=== PATIENT | female | born 1955 | race Caucasian/White ===

== ENCOUNTER → 2018-02-08 14:26 | Outpatient (CLI) | payer OTHER, SELFPAY ==
--- NOTE | 2018-02-08 14:28 | DI.RAD.S_ITS ---
PROCEDURE: XR FOOT LT MIN 3V INDICATIONS: Left foot pain TECHNIQUE: 3 views of the foot were acquired. COMPARISON: [facility], CR, ANKLE 3 VIEWS LEFT, 02/01/2012, 12:41. [facility], , FOOT 3V LEFT, 02/01/2012, 12:41. FINDINGS: Bones: There is a mildly displaced fracture within the midportion of the proximal fifth phalanx. Soft tissues: No tibiotalar joint effusion. Calcaneal spur is present. IMPRESSION: Mildly displaced proximal fifth phalanx fracture. Dictated by: Vesna Graham M.D. on 02/08/2018 at 14:58 Approved by: Vesna Graham M.D. on 02/08/2018 at 14:59
== END ==
PROVIDERS: Family Provider Nurse Practitioner; PCP Nurse Practitioner; Visit Provider Physician Assistant
DX: S92.512A Displaced fracture of proximal phalanx of left lesser toe(s), initial encounter for closed fracture (principal); M79.672 Pain in left foot
CPT/HCPCS: 73630

== ENCOUNTER → 2018-04-23 08:33 | Outpatient (CLI) | payer OTHER, MEDICARE, SELFPAY ==
--- NOTE | 2018-04-23 | DI.MG.S_ITS ---
BILATERAL DIGITAL SCREENING MAMMOGRAM 3D/2D WITH CAD: 04/23/2018 CLINICAL: Routine screening. Family history of breast cancer. Comparison is made to exams dated: 05/12/2014 mammogram, 04/02/2013 mammogram, and 05/29/2012 mammogram - [facility]. There are scattered fibroglandular elements in both breasts. Current study was also evaluated with a Computer Aided Detection (CAD) system. No significant masses, calcifications, or other findings are seen in either breast. There has been no significant interval change. IMPRESSION: NEGATIVE There is no mammographic evidence of malignancy. A 1 year screening mammogram is recommended.(04/24/2019) This exam was interpreted at Station ID: [id number]. NOTE: For mammograms, a report in lay terms will be sent to the patient. Approximately 15% of breast malignancies will not be visualized mammographically. In the management of a palpable breast mass, a negative mammogram must not discourage biopsy of a clinically suspicious lesion. Electronically Signed By: Av higgins/azael:04/23/2018 10:41:23 letter sent: Normal Exam ACR BI-RADS Category 1: Negative [id number]
== END ==
PROVIDERS: PCP Nurse Practitioner; Visit Provider Nurse Practitioner
DX: Z12.31 Encounter for screening mammogram for malignant neoplasm of breast (principal); Z80.3 Family history of malignant neoplasm of breast
CPT/HCPCS: 77063; 77067

== ENCOUNTER → 2018-05-07 08:35 | Outpatient (CLI) | payer OTHER, MEDICARE, SELFPAY | PROVIDERS: PCP Nurse Practitioner | DX: Z23 Encounter for immunization (principal) | CPT/HCPCS: 90471; 90662 ==

== ENCOUNTER → 2018-08-11 08:42 | Outpatient (CLI) | payer OTHER, MEDICARE, SELFPAY ==
[2018-08-11 09:37] LABS: Add Manual Diff / Slide Review NO; Basophils Absolute Auto 0 /uL (0-100); Basophils Percent Auto 0.5 % (0-2); Eosinophils Absolute Auto 100 /uL (0-450); Eosinophils Percent Auto 1.3 % (2-4); Hematocrit 38.7 % (36-46); Hemoglobin 13.1 g/dL (12.0-16.0); Lymphocytes Absolute Auto 2700 /uL (1100-4500); Lymphocytes Percent Auto 42.4 % (25-40); Mean Corpuscular HGB Conc 33.9 % (30-36); Mean Corpuscular Hemoglobin 30.1 PG (26-34); Mean Corpuscular Volume 88.8 fL (80-100); Monocytes Absolute Auto 500 /uL (0-900); Monocytes Percent Auto 7.4 % (3-14); Neutrophils Absolute Auto 3100 /uL (1500-7000); Neutrophils Percent Auto 48.4 % (50-75); Platelet Count 264 X10^3/uL (150-400); Red Blood Cell Count 4.36 X10^6/uL (4.0-5.2); Red Cell Distribution Width 12.8 % (11.6-14.8); White Blood Cell Count 6.5 X10^3/uL (4.5-11.0)
[2018-08-11 09:49] LABS: Alanine Aminotransferase 29 IU/L (9-52); Albumin 4.8 g/dL (3.5-5.0); Albumin Globulin Ratio 1.4 (1.0-2.8); Alkaline Phosphatase 53 U/L (38-126); Aspartate Aminotransferase 24 IU/L (14-36); BUN Creatinine Ratio 25.7 (6-22); Bilirubin Total 0.4 mg/dL (0.2-1.3); Blood Urea Nitrogen 18 mg/dL (7-17); Calcium 9.5 mg/dL (8.4-10.2); Carbon Dioxide 29 mmol/L (22-32); Chloride 98 mmol/L (98-107); Cholesterol 194 mg/dL (140-199); Estimated Glomerular Filt Rate > 60.0 mL/min (>60); Globulin 3.5 g/dL (1.7-4.1); Glucose 133 mg/dL (80-110); HDL Cholesterol 40 mg/dL (40-60); HEMOLYSIS < 15 (0-50); LDL Cholesterol Calculated 86 mg/dL (<100); Potassium 4.2 mmol/L (3.4-5.1); Sodium 140 mmol/L (137-145); Total Protein 8.3 g/dL (6.3-8.2); Triglycerides 340 mg/dL (35-150)
[2018-08-11 09:57] LABS: Hemoglobin A1C% w Est Avg Glu 6.2 % (4.0-6.0)
[2018-08-11 10:19] LABS: TSH w/ Reflex to FT4 0.66 uIU/mL (0.47-4.68)
== END ==
PROVIDERS: PCP Nurse Practitioner; Visit Provider Nurse Practitioner
DX: I10 Essential (primary) hypertension (principal); R73.02 Impaired glucose tolerance (oral)
CPT/HCPCS: 36415; 80053; 80061; 83036; 84443; 85025

== ENCOUNTER → 2018-11-25 13:17 | Outpatient (CLI) | payer OTHER, SELFPAY ==
--- NOTE | 2018-11-25 | DI.RAD.S_ITS ---
PROCEDURE: XR KNEE RT 3V INDICATIONS: Unilateral primary osteoarthritis, unspecified knee TECHNIQUE: 3 views of the knee were acquired. COMPARISON: [facility], , KNEE 1-2 VIEWS RIGHT, 11/06/2017, 13:51. [facility], , KNEE 3V LEFT, 11/06/2017, 13:51. FINDINGS: Bones: No fractures or dislocations. No suspicious bony lesions. Scattered degenerative subchondral sclerosis and spurring. Moderate to severe narrowing of the medial joint space which is unchanged since 11/06/17 Soft tissues: Small joint effusion. No suspicious soft tissue calcifications. IMPRESSION: Unchanged [id number] right knee joint degeneration Dictated by: Adilson Gross M.D. on 11/25/2018 at 16:28 Approved by: Adilson Gross M.D. on 11/25/2018 at 16:30
--- NOTE | 2018-11-25 | DI.RAD.S_ITS ---
PROCEDURE: XR KNEE LT 3V INDICATIONS: Unilateral primary osteoarthritis, unspecified knee TECHNIQUE: 3 views of the knee were acquired. COMPARISON: [facility], VANNA, KNEE 3V LEFT, 11/06/2017, 13:51. [facility], [place], XR KNEE RT 3V, 11/25/2018, 13:35. FINDINGS: Bones: No fractures or dislocations. No suspicious bony lesions. Severe narrowing of the medial joint space. Scattered degenerative subchondral sclerosis and spurring. Possible loose body versus ununited osteophyte projecting adjacent to the lateral aspect of the patella Soft tissues: Small joint effusion as before. No suspicious soft tissue calcifications. IMPRESSION: Severe left knee joint degeneration as above. This has progressed since 11/06/17. Dictated by: Adilson Gross M.D. on 11/25/2018 at 14:10 Approved by: Adilson Gross M.D. on 11/25/2018 at 14:12
== END ==
PROVIDERS: PCP Nurse Practitioner; Visit Provider Nurse Practitioner
DX: M17.0 Bilateral primary osteoarthritis of knee (principal)
CPT/HCPCS: 73562

== ENCOUNTER → 2019-05-11 14:11 | Outpatient (CLI) | payer OTHER, SELFPAY | PROVIDERS: PCP Nurse Practitioner | DX: Z23 Encounter for immunization (principal) | CPT/HCPCS: 90471; 90686 ==

== ENCOUNTER 2019-10-07 17:38 | Emergency (ER) | payer OTHER, SELFPAY ==
[2019-10-07 17:51] VITALS: BP 176/88; PULSE 78; RESP 24; TEMP 36.7; O2SAT 97; BMI 34.3
--- NOTE | 2019-10-07 17:53 | DI.RAD.S_ITS ---
PROCEDURE: XR CHEST 1V INDICATIONS: Chest pain TECHNIQUE: One view of the chest was acquired. COMPARISON: , , CHEST 2 VIEW, 09/29/2017, 15:18. FINDINGS: Surgical changes and devices: None. Lungs and pleura: Lungs are clear. No pleural effusions or pneumothorax. Mediastinum: Mediastinal contours appear normal. Mild cardiomegaly. Bones and chest wall: No suspicious bony lesions. Overlying soft tissues appear unremarkable. IMPRESSION: Mild cardiomegaly. No evidence acute pulmonary process. Dictated by: Taras Tirado M.D. on 10/07/2019 at 18:07 Approved by: Taras Tirado M.D. on 10/07/2019 at 18:07
--- NOTE | 2019-10-07 18:20 | ED.DIZZY ---
HPI - Dizziness General Chief Complaint: Dizziness Stated Complaint: light headed, high blood pressure Time Seen by Provider: 10/07/19 17:53 Source: patient Mode of arrival: Wheelchair Limitations: no limitations History of Present Illness HPI Narrative: The patient is a 64-year-old female who has a history of hypertension on 3 hypertensive agents today stood up from her desk and felt as though she was going to maribel. There is no other way to describe it. The patient states that her staff checked her blood pressure and her blood pressure was very high. The patient denies that she felt as though she was going to faint or pass out but she felt as though she was unsteady and going to crash and fall. She denied any headache and change in vision. She has had no recent travel no fever no cough no nasal congestion no change in vision or loss of vision no history of congestive heart failure. She did not fall or collapse to the floor. The patient states that this is been happening more frequently. She denies a history of myocardial infarction asthma but admits to history of hypertension and diabetes with her 1st elevated hemoglobin A1c. She does not smoke cigarettes but does drink alcohol socially. She denies any headache fever chills sweats cough shortness of breath chest pain palpitations nausea vomiting or diarrhea. Related Data Home Medications Medication Instructions Recorded Confirmed atenolol 50 mg PO HS #0 05/23/10 09/07/19 amlodipine 5 mg tablet 5 mg PO DAILY 04/09/19 09/07/19 duloxetine 20 mg capsule,delayed 20 mg PO BEDTIME cap 04/09/19 09/07/19 release duloxetine 30 mg capsule,delayed 30 mg PO BEDTIME cap 04/09/19 09/07/19 release ibuprofen 800 mg tablet 800 mg PO TID PRN tab 04/09/19 09/07/19 indapamide 1.25 mg tablet 1.25 mg PO QAM 04/09/19 09/07/19 cholecalciferol (vitamin D3) 50 2,000 unit PO DAILY 04/23/19 09/07/19 mcg (2,000 unit) capsule Previous Rx's Medication Instructions Recorded diclofenac sodium [Voltaren] 1 emir TOPICAL BIDP PRN #100 gm 03/27/17 cyclobenzaprine 10 mg tablet 10 mg PO TID PRN #60 tab 01/13/18 fluticasone propionate 50 1 spray NASAL BID #15.8 ml 07/09/19 mcg/actuation nasal spray,suspension fluconazole 150 mg tablet 150 mg PO ONCE #1 tab 07/18/19 meclizine 12.5 mg PO TID PRN #15 tab 10/07/19 meclizine 12.5 mg PO TID PRN #15 tab 10/07/19 Allergies Allergy/AdvReac Type Severity Reaction Status Date / Time lisinopril [LISINOPRIL] AdvReac Mild PERSISTENT Verified 09/07/19 14:11 MILD COUGH Review of Systems Review of Systems Narrative: Her review of systems were all negative except for those mentioned in the history of present illness. Patient History Medical History Osteoarthrosis (Acute) Family History Father Hypertension Diabetes mellitus Social History Smoking Status: Former smoker alcohol intake: current Smoking Status: Former smoker alcohol intake frequency: holidays/special occasions only Substance Use Type: does not use Exam Narrative Exam Narrative: PHYSICAL EXAM: CONSTITUTIONAL: Awake, Alert, Oriented, Coherent, Cooperative in NAD. Does not appear toxic or ill. HEAD: AT/NC EENT: PERRL, FROM of eyes, no discharge, No drainage from the ears, Tympanic membranes intact bilaterally, clear EAC NECK: Supple, no obvious JVD, Trachea is midline without stridor, no palpable LN or masses. SPINE: No gross deformity, no palpable tenderness of the cervical, thoracic, lumbar or sacral spine. No CVA tenderness. THORAX: No deformity, retractions, chest wall tenderness, subcutaneous air or crepitice. LUNGS: Clear with symmetrical breath sounds without respiratory distress HEART: Normal heart tones, regular rhythm and rate without murmur. ABDOMEN: Soft, non-tender, normal bowel sounds without guarding, rebound, rigidity or palpable mass EXTREMITIES: No edema, cyanosis, deformity or tenderness. SKIN: No rash, bruising, petechiae or purpura. NEURO: Awake, alert, oriented, conversive, cranial nerves II-XII are symmetrical and normal, moves all 4 extremities and is ambulatory Initial Vital Signs Initial Vital Signs: Vital Signs Temperature 98.1 F 10/07/19 17:51 Pulse Rate 78 10/07/19 17:51 Respiratory Rate 24 10/07/19 17:51 Blood Pressure 176/88 H 10/07/19 17:51 Pulse Oximetry 97 10/07/19 17:51 Course Course Course Narrative: 1927: CT of the patient's head is negative for any acute intracranial pathology. There is no evidence of an acute stroke hemorrhage or mass The patient's chest x-ray reveals no acute cardiopulmonary pathology. It reveals mild cardiomegaly 1930: The her are no significant orthostatic changes. The patient's blood pressure goes up appropriately when standing and changing position. It does not drop. 1935: The patient's studies up to now are currently all within normal limits. I will obtain a CT angiogram of the head and neck to rule out vertebral basilar insufficiency causing her symptomatology when she stands up and changes position. 2043: The patient's CT angiogram of her head and neck revealed no evidence of an acute stroke, hemorrhage or mass. 2. Unremarkable CTA of the head with no evidence of stenosis, occlusion, aneurysm or focal filling defect. 3. Mild bilateral internal carotid artery stenosis. Otherwise unremarkable CT a. Any quantitative measurements of stenosis were performed use in NASCET criteria. Orders Ordered: Discontinued Medications Morphine Sulfate (Morphine) 4 mg IV NOW ONE Stop: 10/07/19 20:17 Last Admin: 10/07/19 20:32 Dose: Not Given Documented by: CARRI Vital Signs Vital signs: Vital Signs - 8 hr 10/07/19 17:51 10/07/19 19:03 Temperature 98.1 F Pulse Rate 78 Pulse Rate [Orthostatic Lying] 78 Pulse Rate [Orthostatic Sitting] 75 Pulse Rate [Orthostatic Standing] 77 Respiratory Rate 24 Blood Pressure 176/88 H Blood Pressure [Orthostatic Lying] 153/70 H Blood Pressure [Orthostatic Sitting] 160/80 H Blood Pressure [Orthostatic Standing] 163/69 H Pulse Oximetry 97 MDM - Dizziness Medical Records Attestation: I reviewed the patient's medical records. Lab Data Attestation: I reviewed the patient's lab results. Result diagrams: 10/07/19 18:16 10/07/19 18:16 Labs: Lab Results 10/07/19 10/07/19 Range/Units 18:16 18:16 WBC 9.5 (4.5-11.0) X10^3/uL RBC 4.17 (4.0-5.2) X10^6/uL Hgb 12.8 (12.0-16.0) g/dL Hct 36.9 (36-46) % MCV 88.5 (80-100) fL MCH 30.8 (26-34) PG MCHC 34.8 (30-36) % RDW 13.4 (11.6-14.8) % Plt Count 267 (150-400) X10^3/uL Neut % (Auto) 54.2 (50-75) % Lymph % (Auto) 35.8 (25-40) % [place] % (Auto) 7.2 (3-14) % Eos % (Auto) 2.0 (2-4) % Baso % (Auto) 0.8 (0-2) % Neut # (Auto) 5200 (3466-0501) /uL Lymph # (Auto) 3400 (7344-6155) /uL [place] # (Auto) 700 (0-900) /uL Eos # (Auto) 200 (0-450) /uL Baso # (Auto) 100 (0-100) /uL Sodium 137 (137-145) mmol/L Potassium 3.4 (3.4-5.1) mmol/L Chloride 99 (98-107) mmol/L Carbon Dioxide 28 (22-32) mmol/L BUN 19 H (7-17) mg/dL Creatinine 0.59 (0.52-1.04) mg/dL Estimated GFR > 60.0 (>60) mL/min BUN/Creatinine Ratio 32.2 H (6-22) Glucose 107 (80-110) mg/dL Calcium 9.9 (8.4-10.2) mg/dL Total Bilirubin 0.4 (0.2-1.3) mg/dL AST 30 (14-36) IU/L ALT 24 (<35) IU/L Alkaline Phosphatase 74 (38-126) U/L Troponin I < 0.012 (0.01-0.034) ng/mL Total Protein 8.5 H (6.3-8.2) g/dL Albumin 5.0 (3.5-5.0) g/dL Globulin 3.5 (1.7-4.1) g/dL Albumin/Globulin Ratio 1.4 (1.0-2.8) Lipase 164 (23-300) U/L Urine Dip Bedside Urine Glucose Negative Bedside Urine Bilirubin - Negative Bedside Urine Ketone - Negative Urine Specific [place] 1.015 Bedside Urine Occult Blood - Negative Bedside Urine pH 6.0 Bedside Urine Protein - Negative Bedside Urine Urobilinogen - Negative Bedside Urine Nitrite - Negative Bedside Urine Leukocytes - Negative Esterase ECG Data Attestation: I personally reviewed and interpreted this ECG as follows: Interpretation: The patient's EKG obtained on October 06 at 17: 5A: 0 7 revealed a normal sinus rhythm normal intervals normal axis inverted T-waves in leads III V1 no other inverted T-waves. There are no other acute ST or T-wave changes. The EKG is normal. Discharge Plan Departure Patient Disposition: Home Clinical Impression: Essential hypertension, Vertigo Discharge Date/Time: 10/07/19 20:56 Instructions: DI for Vertigo, DI for Dizziness-Nonvertigo Activity Restrictions/Additional Instructions: 1. When you stand up actually your blood pressure goes up like it is normally should rather than drop. 2. When changing your position you need to hold onto things to prevent any falls from occurring when you develop disequilibrium. You need to keep a log or diary of the episodes date and time as to when you develop the disequilibrium and dizziness when changing position. You need to follow-up with your primary care physician. If you develop spinning dizziness you can take the meclizine as needed if your symptoms persist. If you fall and pass out you need to return to the emergency department. Otherwise you need to follow-up with your primary care physician. Prescriptions: New meclizine 12.5 mg tablet 12.5 mg PO TID PRN (Reason: dizziness) Qty: 15 RF: 0 meclizine 12.5 mg tablet 12.5 mg PO TID PRN (Reason: dizziness) Qty: 15 RF: 0 No Action fluticasone propionate [Flonase Allergy Relief] 50 mcg/actuation spray,suspension 1 spray NASAL BID Qty: 15.8 RF: 0 atenolol 50 MG tablet 50 mg PO HS Qty: 0 RF: 0 diclofenac sodium [Voltaren] 1 % gel 1 emir Topical BIDP PRNQty: 100 RF: 3 cyclobenzaprine 10 mg tablet 10 mg PO TID PRN (Reason: muscle spasm) Qty: 60 RF: 3 fluconazole [Diflucan] 150 mg tablet 150 mg PO ONCE Qty: 1 RF: 0 duloxetine 20 mg capsule,delayed release(DR/EC) 20 mg PO BEDTIME RF: 0 duloxetine 30 mg capsule,delayed release(DR/EC) 30 mg PO BEDTIME RF: 0 ibuprofen 800 mg tablet 800 mg PO TID PRNRF: 0 indapamide 1.25 mg tablet 1.25 mg PO QAM RF: 0 amlodipine 5 mg tablet 5 mg PO DAILY RF: 0 cholecalciferol (vitamin D3) 2,000 unit capsule 2,000 unit PO DAILY RF: 0 Referrals: Oneida Barajas ARNP [Primary Care Provider] - ED Sign-out Cosign ED Attending Cosignature Attestation: I was immediately available in the department for consultation. This documentation has been reviewed and I agree with assessment and plan. Supervised by Jersey Rendon MD
--- NOTE | 2019-10-07 18:29 | DI.CT.S_ITS ---
PROCEDURE: CT HEAD/BRAIN WO CON INDICATIONS: feeling of crashing with hypertension TECHNIQUE: Noncontrast 4.5 mm thick angled axial sections acquired from the foramen magnum to the vertex, with coronal and sagittal reformats. For radiation dose reduction, the following was used: automated exposure control, adjustment of mA and/or kV according to patient size. COMPARISON: None. FINDINGS: Image quality: Excellent. CSF spaces: Basal cisterns are patent. No extra-axial fluid collections. Ventricles are normal in size and shape. Brain: No midline shift. No intracranial masses or hemorrhage. Jefferson-white matter interface is normal. Skull and face: Calvarium and visualized facial bones are intact, without suspicious lesions. Sinuses: Visualized sinuses and mastoids are clear. IMPRESSION: Negative head CT. No evidence of acute stroke, hemorrhage, or mass. Dictated by: Taras Tirado M.D. on 10/07/2019 at 18:55 Approved by: Taras Tirado M.D. on 10/07/2019 at 18:56
[2019-10-07 18:31] LABS: Alanine Aminotransferase 24 IU/L (<35); Albumin Globulin Ratio 1.4 (1.0-2.8); Alkaline Phosphatase 74 U/L (38-126); Aspartate Aminotransferase 30 IU/L (14-36); BUN Creatinine Ratio 32.2 (6-22); Bilirubin Total 0.4 mg/dL (0.2-1.3); Blood Urea Nitrogen 19 mg/dL (7-17); Calcium 9.9 mg/dL (8.4-10.2); Carbon Dioxide 28 mmol/L (22-32); Chloride 99 mmol/L (98-107); Estimated Glomerular Filt Rate > 60.0 mL/min (>60); Globulin 3.5 g/dL (1.7-4.1); Glucose 107 mg/dL (80-110); HEMOLYSIS 32 (0-50); Lipase 164 U/L (23-300); Potassium 3.4 mmol/L (3.4-5.1); Sodium 137 mmol/L (137-145); Total Protein 8.5 g/dL (6.3-8.2)
[2019-10-07 18:36] LABS: Add Manual Diff / Slide Review NO; Basophils Absolute Auto 100 /uL (0-100); Basophils Percent Auto 0.8 % (0-2); Eosinophils Absolute Auto 200 /uL (0-450); Hematocrit 36.9 % (36-46); Hemoglobin 12.8 g/dL (12.0-16.0); Lymphocytes Absolute Auto 3400 /uL (1100-4500); Lymphocytes Percent Auto 35.8 % (25-40); Mean Corpuscular HGB Conc 34.8 % (30-36); Mean Corpuscular Hemoglobin 30.8 PG (26-34); Mean Corpuscular Volume 88.5 fL (80-100); Monocytes Absolute Auto 700 /uL (0-900); Monocytes Percent Auto 7.2 % (3-14); Neutrophils Absolute Auto 5200 /uL (1500-7000); Neutrophils Percent Auto 54.2 % (50-75); Platelet Count 267 X10^3/uL (150-400); Red Blood Cell Count 4.17 X10^6/uL (4.0-5.2); Red Cell Distribution Width 13.4 % (11.6-14.8); White Blood Cell Count 9.5 X10^3/uL (4.5-11.0)
[2019-10-07 18:43] LABS: Troponin I < 0.012 ng/mL (0.01-0.034)
[2019-10-07 19:03] VITALS: BP 153/70; BP 160/80; BP 163/69; PULSE 75; PULSE 77; PULSE 78
--- NOTE | 2019-10-07 19:33 | DI.CT.S_ITS ---
PROCEDURE: CT ANGIO HEAD AND NECK INDICATIONS: vertigo and dysequilibrium standing up with HTN TECHNIQUE: Pre-contrast 4.5 mm thick sections acquired from the foramen magnum to the vertex. After the administration of intravenous contrast, 1 mm thick sections acquired from the aortic arch through the Ramona of Garcia. Post-contrast 4.5 mm thick sections then re-acquired from the foramen magnum to the vertex. 3-dimensional wkojevq-vwrddaxtp-vpncsudbqu (MIP) and/or volume rendering reformats were acquired of the central intracranial vasculature and neck separately. COMPARISON: [facility], CT, CT HEAD/BRAIN WO CON, 10/07/2019, 18:36. FINDINGS: Image quality: Excellent. BRAIN: CSF spaces: Ventricles are normal in size and shape. Basal cisterns are patent. No extra-axial fluid collections. Brain: No midline shift. No intracranial bleeds or masses. Jefferson-white matter interface appears intact. Skull and face: Calvarium and facial bones appear intact, without suspicious lesions. Orbits appear normal. Sinuses: Sinuses and mastoids are clear. HEAD CT ANGIOGRAPHY: Anterior circulation: Intracranial internal carotid arteries are normal in size and flow. The flow within the paired anterior cerebral arteries is normal and symmetric. The flow within the middle cerebral arteries is normal and symmetric. The anterior communicating artery is seen. No aneurysms are seen. Posterior circulation: Visualized portions of the vertebral arteries demonstrate normal caliber, and join to form a normal appearing basilar artery. Flow within the posterior cerebral arteries is normal and symmetric. No aneurysms are seen. NECK CT ANGIOGRAPHY: Carotid system: The great vessels demonstrate a conventional anatomy as they arise from the aortic arch. The origins of the common carotid arteries appear patent. The common carotid arteries demonstrate normal caliber and courses. There is mild atherosclerotic narrowing at the origins of the internal carotid arteries bilaterally. The internal carotid arteries demonstrate normal calibers and courses. Posterior circulation: The origins of the vertebral arteries both appear widely patent. The more superior extracranial portions of both vertebral arteries also demonstrate normal courses and calibers. They join to form a normal appearing basilar artery. Soft tissues: Visualized neck soft tissues demonstrate no suspicious abnormalities. Bones: No suspicious bony lesions. Visualized cervical spine appears normally aligned. IMPRESSION: 1. No evidence of acute stroke, hemorrhage, or mass. 2. Unremarkable CTA head with no evidence of stenosis, occlusion, aneurysm, or focal filling defect. 3. Mild bilateral internal carotid artery stenoses. Otherwise unremarkable CTA neck. Any quantitative measurements of stenosis were performed using NASCET criteria. Dictated by: Taras Tirado M.D. on 10/07/2019 at 20:24 Approved by: Taras Tirado M.D. on 10/07/2019 at 20:30
[2019-10-07 20:49] VITALS: BP 157/67; PULSE 85; RESP 15; O2SAT 97
== END 2019-10-07 20:56 | disposition home or self-care (01) ==
PROVIDERS: Emergency Medicine; Emergency Provider Emergency Medicine; PCP Nurse Practitioner
DX: I10 Essential (primary) hypertension (principal); R42 Dizziness and giddiness; E11.9 Type 2 diabetes mellitus without complications
CPT/HCPCS: 36415; 70450; 70496; 70498; 71045; 80053; 81003; 83690; 84484; 85025; 93005; 99284; Q9967

== ENCOUNTER → 2020-01-26 16:17 | Outpatient (CLI) | payer OTHER, SELFPAY ==
--- NOTE | 2020-01-26 16:30 | DI.ECHO.S_ITS ---
Echocardiogram Report + + :Name: MATT WEISS Study Date: 01/26/2020 Height: 64.5 in: :[facility] Weight: 200 lb : : Gender: Female BSA: 2.0 m2 : :: 1955 Age: 64 yrs BP: 158/76 mmHg: :Reason For Study: Cardiomegaly : :Ordering Physician: RACHNA, : :VEENA Performed By: Margy Remy : :Referring: VEENA BRISCOE : + + Interpretation Summary Left ventricular systolic function is normal with an estimated ejection fraction of 60 to 65% without any focal wall motion abnormality. There is mild concentric LVH with a probable diastolic relaxation abnormality but filling pressures are difficult to assess. The right ventricle is at the upper limits of normal in size with normal systolic function. Pulmonary artery pressure cannot be estimated but CVP is likely 3 mmHg There is moderate left atrial enlargement. Right atrial size is normal. There is no significant valvular abnormality. The ascending aorta and aortic arch are mildly enlarged. Procedure: A two-dimensional transthoracic echocardiogram with color flow and Doppler was performed. The study quality was technically adequate. There is no prior echocardiogram noted for this patient. The patient was in normal sinus rhythm during the exam. The heart rate ranged between 74-86 bpm during the study. Left Ventricle: The left ventricle is normal in size. There is mild concentric left ventricular hypertrophy. The ejection fraction is estimated to be 60-65%. Left ventricular systolic function is normal without focal wall motion abnormalities. Diastolic function could not be accurately assessed due to contradictory data. Diastolic parameters suggest a relaxation abnormality of the left ventricle, consistent with probable normal filling pressures. Right Ventricle: The right ventricle is at the upper limits of normal in size. The right ventricular systolic function is normal. Atria: The left atrium is moderately dilated. Right atrial size is normal. There is no Doppler evidence for an interatrial shunt. Mitral Valve: The mitral valve is normal in structure and function. There is trace mitral regurgitation. Aortic Valve: The aortic valve is trileaflet. The aortic valve is slightly calcified. The aortic valve opens well. There is no aortic valve stenosis. No aortic regurgitation is present. Tricuspid Valve: The tricuspid valve is normal in structure and function. There is a trace or physiologic amount of tricuspid regurgitation. Pulmonary artery pressures cannot be estimated because of the lack of a measurable TR jet velocity but the IVC suggests a CVP of around 3 mmHg. Pulmonic Valve: The pulmonic valve is normal in structure and function. There is trace pulmonic regurgitation. There is no significant valvular heart disease. Great Vessels: The aortic root is normal size. The ascending aorta is mildly enlarged. The aortic arch is mildly enlarged. The IVC is of normal diameter and collapses greater than 50% with a sniff. This suggests a low right atrial pressure of 3 mm Hg. Pericardium/ Pleura There is no pericardial effusion. There is no pleural effusion. MMode/2D Measurements & Calculations LVIDd: 4.8 cm LVOT diam: 1.9 cm LVIDs: 3.5 cm Ao root diam: 3.2 cm FS: 28.5 % asc Aorta Diam: 3.6 cm EPSS: 1.1 cm Ao Arch Diam (Prox Trans): 3.3 cm IVSd: 1.1 cm LVPWd: 1.2 cm LV baptiste. diameter/BSA (cm/m^2): 2.5 LV sys. diameter/BSA (cm/m^2): 1.8 LA A2 area: 22.7 cm2 RA long axis: 5.4 cm LA A4 area: 23.0 cm2 RA area: 17.5 cm2 LA length (vol): 5.5 cm RA vol: 48.7 ml LA vol: 80.3 ml RA : 24.8 ml/m2 LA vol index: 40.8 ml/m2 IVC diam: 1.4 cm RVD1 (basal): 4.1 cm TAPSE: 2.4 cm Doppler Measurements & Calculations Ao V2 max: 199.0 cm/sec LVOT Max [place]: 142.6 cm/sec Ao V2 mean: 124.4 cm/sec LV V1 max P.1 mmHg Ao max P.8 mmHg LV V1 VTI: 24.1 cm Ao mean P.4 mmHg SHELBY(I,D): 2.2 cm2 Ao V2 VTI: 33.0 cm SHELBY(V,D): 2.1 cm2 sev ratio: 0.73 SHELBY indexed to BSA (cm^2/m^2): 1.1 MV E max tyrone: 65.2 cm/sec PA V2 max: 120.1 cm/sec MV A max tyrone: 105.5 cm/sec PA V2 mean: 71.7 cm/sec MV E/A: 0.62 PA mean P.5 mmHg Med Peak E' [place]one: 4.7 cm/sec PA pr(Accel): 29.3 mmHg E/E' med: 13.7 Lat Peak E' [place]: 4.0 cm/sec E/E' lat: 16.4 E/e' average: 15.1 MV dec time: 0.29 sec [facility] 71.2 ml Reading Physician:PM
== END ==
PROVIDERS: PCP Nurse Practitioner; Referring Provider Nurse Practitioner; Visit Provider Nurse Practitioner
DX: I51.7 Cardiomegaly (principal); I77.89 Other specified disorders of arteries and arterioles
CPT/HCPCS: 93306

== ENCOUNTER → 2020-04-19 18:06 | Outpatient (CLI) | payer OTHER, SELFPAY | PROVIDERS: Family Provider Nurse Practitioner; PCP Nurse Practitioner; Referring Provider Internal Medicine; Visit Provider Internal Medicine | DX: Z23 Encounter for immunization (principal) | CPT/HCPCS: 90471; 90662 ==

== ENCOUNTER → 2020-06-23 11:23 | Outpatient (CLI) | payer OTHER, SELFPAY ==
--- NOTE | 2020-06-23 | DI.MG.S_ITS ---
BILATERAL DIGITAL SCREENING MAMMOGRAM 3D/2D WITH CAD: 06/23/2020 CLINICAL: Routine screening. Family history of breast cancer. Comparison is made to exams dated: 04/23/2018 mammogram, 05/12/2014 mammogram, and 04/02/2013 mammogram - [facility]. There are scattered fibroglandular elements in both breasts. Current study was also evaluated with a Computer Aided Detection (CAD) system. There is a new 1 cm x 0.4 cm irregular equal density asymmetry with a circumscribed margin in the right breast middle depth medial region seen on the craniocaudal view only 9.5 cm from the nipple. No other significant masses, calcifications, or other findings are seen in either breast. IMPRESSION: INCOMPLETE: NEEDS ADDITIONAL IMAGING EVALUATION The new 1 cm x 0.4 cm irregular equal density asymmetry in the right breast is indeterminate. A diagnostic mammogram and ultrasound is recommended. This exam was interpreted at Station ID: [id number]. NOTE: For mammograms, a report in lay terms will be sent to the patient. Approximately 15% of breast malignancies will not be visualized mammographically. In the management of a palpable breast mass, a negative mammogram must not discourage biopsy of a clinically suspicious lesion. Electronically Signed By: Andrez Bergeron acr/:06/23/2020 12:07:07 letter sent: Additional Imaging Needed ACR BI-RADS Category 0: Incomplete 3340F
== END ==
PROVIDERS: Family Provider Nurse Practitioner; PCP Nurse Practitioner; Referring Provider Nurse Practitioner; Visit Provider Nurse Practitioner
DX: Z12.31 Encounter for screening mammogram for malignant neoplasm of breast (principal); Z80.3 Family history of malignant neoplasm of breast
CPT/HCPCS: 77063; 77067

== ENCOUNTER → 2020-07-03 14:18 | Outpatient (CLI) | payer OTHER, SELFPAY ==
--- NOTE | 2020-07-03 | DI.MG.S_ITS ---
UNILATERAL RIGHT DIGITAL DIAGNOSTIC MAMMOGRAM 3D/2D WITH ADDITIONAL VIEWS: 07/03/2020 CLINICAL: Additional evaluation requested from prior study. Comparison is made to exams dated: 06/23/2020 mammogram, 04/23/2018 mammogram, and 05/12/2014 mammogram - [facility]. There are scattered fibroglandular elements in right breast. The previously described 1 cm x 0.4 cm irregular equal density asymmetry with a circumscribed margin in the right breast middle depth medial region seen on the craniocaudal view only 9.5 cm from the nipple is no longer seen and likely represents summation artifact. No other significant masses or calcifications are seen in the breast. IMPRESSION: BENIGN No mammographic evidence for malignancy. Previously described asymmetry is no longer seen and likely represents summation artifact. Return to annual mammogram screening schedule is recommended. Findings and recommendations were conveyed to the patient during today's evaluation. This exam was interpreted at Station ID: [id number]. NOTE: For mammograms, a report in lay terms will be sent to the patient. Approximately 15% of breast malignancies will not be visualized mammographically. In the management of a palpable breast mass, a negative mammogram must not discourage biopsy of a clinically suspicious lesion. Electronically Signed By: Jarett Rushing M.D. aty/:07/05/2020 17:31:06 letter sent: Normal Exam ACR BI-RADS Category 2: Benign Finding(s) 3342F
== END ==
PROVIDERS: Family Provider Nurse Practitioner; PCP Nurse Practitioner; Referring Provider Nurse Practitioner; Visit Provider Nurse Practitioner
DX: R92.8 Other abnormal and inconclusive findings on diagnostic imaging of breast (principal)
CPT/HCPCS: 77065; G0279

== ENCOUNTER → 2020-09-22 13:24 | Outpatient (CLI) | payer MEDICARE, BC, SELFPAY ==
--- NOTE | 2020-09-22 13:26 | DI.RAD.S_ITS ---
PROCEDURE: XR KNEE RT 3V INDICATIONS: RIGHT KNEE PAIN TECHNIQUE: 3 views of the knee were acquired. COMPARISON: Merged With [facility], , XR KNEE LT 3V, 11/25/2018, 13:39. Merged With [facility], , XR KNEE RT 3V, 11/25/2018, 13:35. FINDINGS: Bones: No fractures or dislocations. No suspicious bony lesions. Degenerative joint space narrowing is moderate at the medial compartment and the patellofemoral joint. It is mild at the lateral compartment. Soft tissues: No joint effusion. No suspicious soft tissue calcifications. IMPRESSION: [id number] knee joint osteoarthritis without trauma. This has mildly worsened over time from 2019. Dictated by: Corby Colon M.D. on 09/22/2020 at 14:48 Approved by: Corby Colon M.D. on 09/22/2020 at 14:49
== END ==
PROVIDERS: Family Provider Nurse Practitioner; PCP Nurse Practitioner; Referring Provider Physical Medicine & Rehabilitation; Visit Provider Physical Medicine & Rehabilitation
DX: M25.561 Pain in right knee (principal); M17.11 Unilateral primary osteoarthritis, right knee
CPT/HCPCS: 73562

== ENCOUNTER 2020-12-25 12:00 | Outpatient (RCR) | payer MEDICARE, OTHER, BC, SELFPAY ==
--- NOTE | 2020-05-24 14:50 | PT.OIE ---
Current Diagnoses Unilateral primary osteoarthritis, right knee (05/24/20) Unilateral primary osteoarthritis, left knee (05/24/20) Spondylosis without myelopathy or radiculopathy, lumbar region (05/24/20) Difficulty in walking, not elsewhere classified (05/24/20) Abnormal posture (05/24/20) Weakness (05/24/20) Past Medical History (Last Reviewed 10/07/19 @ 18:37 by Jersey Rendon MD) Osteoarthrosis (Acute) Visit Care Team Role Provider Type SEDRICK Morejon Family Provider Non-Staff Primary Care Provider Specialty: Medical Address: [address] [place] [address], [phone] Email: Sergey Boss MD Attending Provider Non-Staff Referring Provider Specialty: Orthopedic Surgery Address: [address] [place] [address], [phone] Email: Physical Therapy Initial Evaluation PT-OP-A Visit Information Start: 05/23/20 17:56 Freq: Status: Active Protocol: Document 05/24/20 09:04 [facility] (Rec: 05/24/20 09:47 [facility] [id number]) Out-Patient Physical Therapy Visit Information Visit Information Visit Type Initial Evaluation Visit Start Time 09:03 Visit Stop Time 09:47 Total Visit Minutes 44 Visit Number 1 Number of EXTRUSION FORMER Visits 0 PT-OP-B Current Condition Start: 05/23/20 17:56 Freq: Status: Active Protocol: Document 05/24/20 09:04 [facility] (Rec: 05/24/20 09:47 [facility] [id number]) Current Condition History of Current Condition Onset Date chronic Current Complaints LBP & B knee pain History of Current Condition Pt reports LBP started decades ago fromf alling down the stairs. Pt reprots knee pain starting 10 years ago. She has a torn meniscus but that got better with PT. Now arthritis noted. Pt reports LB just locks and it takes her stopping mult times on her way to her car. PT reports getting B sciatica to her knees. Prior Treatments and Tests cortizone injections that helped knees Treatment Goals Patient/Caregiver Goals to get stronger so has a better rehab, be able to bike w/grandkids, be able to go walking Personal Factors Other Personal Factors That May Effect appendectomy, ovarian cyst Therapy/Recovery removed, back pain, B knee pain, oopherectomy, bladder sling PT-OP-C Subjective Start: 05/23/20 17:56 Freq: Status: Active Protocol: Document 05/24/20 09:04 [facility] (Rec: 05/24/20 09:47 [facility] [id number]) OP-PT Pain Assessment Location B knees Pain Location Details ant lateral Intensity 5 Scale Used Numeric (0 - 10) Description Aching Description- Other unless turn a certain way and it grabs or locks Frequency Constant Pain Aggravating Factors Walking,Stair Climbing Other Pain Aggravating Factors getting up from sitting, turn wrong, squat, putting on shoes, kneel, groun Pain Alleviating Factors Medication Other Pain Alleviating Factors lay down LBP Pain Location Details B Lumbosacral Intensity 5 Scale Used Numeric (0 - 10) Description- Other locks, get ups to 8/10 w/ activity Frequency Constant Radiating Location post leg pain Pain Aggravating Factors Lifting Other Pain Aggravating Factors yard work, getting up from sitting, twisting Pain Alleviating Factors Medication Other Pain Alleviating Factors wait until it releases, lay down PT-OP-F Manual Assessment Start: 05/23/20 17:56 Freq: Status: Active Protocol: Document 05/24/20 09:04 [facility] (Rec: 05/24/20 09:47 [facility] [id number]) Manual Assessments Joint Mobility Assessment Joint Mobility Assessment IR of femurs & ER of tibia B, R valgus rearfoot, turning out of RLE in standing PT-OP-G Mobility & Gait Start: 05/23/20 17:56 Freq: Status: Active Protocol: Document 05/24/20 09:04 [facility] (Rec: 05/24/20 09:47 [facility] [id number]) OP Gait Assessment Comments Gait Comments lat leaning B w/less wt shift to L, dec push off B PT-OP-J Posture/Palpation/Skin Start: 05/23/20 17:56 Freq: Status: Active Protocol: Document 05/24/20 09:04 [facility] (Rec: 05/24/20 09:47 [facility] [id number]) Posture Evaluation Whitney Postural Classification System Whitney Postural Classifications Posterior/Anterior Lumbar Protective Mechanism Left AP 1 Lumbar Protective Mechanism Right AP 1 Lumbar Protective Mechanism Left PA 1 Lumbar Protective Mechanism Right PA 1 Comments Posture Comments fwd head & inc kyphosis w/fwd shoulders PT-OP-K Range of Motion Start: 05/23/20 17:56 Freq: Status: Active Protocol: Document 05/24/20 09:04 [facility] (Rec: 05/24/20 09:47 [facility] [id number]) Lumbar Spine Range of Motion Lumbar Spine Active Degrees Flexion 30 Extension 2 Rotation Left 33 Rotation Right 13 Lateral Flexion Left 13 Lateral Flexion Right 16 Comments pain ext PT-OP-L Special Tests Start: 05/23/20 17:56 Freq: Status: Active Protocol: Document 05/24/20 09:04 [facility] (Rec: 05/24/20 09:47 [facility] [id number]) Special Tests Knee Special Tests Straight Leg Raise Comments about 70 deg B HS tightness PT-OP-M Strength Start: 05/23/20 17:56 Freq: Status: Active Protocol: Document 05/24/20 09:04 [facility] (Rec: 05/24/20 09:47 [facility] [id number]) Hip Strength Hip Manual Muscle Testing Right Flexion (L2) 4- Good- Extension (S1) 3+ Fair+ Abduction 4- Good- Adduction 4- Good- External Rotation 4 Good Internal Rotation 4- Good- Left Flexion (L2) 4- Good- Extension (S1) 3+ Fair+ Abduction 4 Good Adduction 3 Fair External Rotation 4 Good Internal Rotation 4 Good Knee Strength Knee Manual Muscle Testing Right Flexion (S2) 4+ Good+ Extension (L3) 4 Good Left Flexion (S2) 4+ Good+ Extension (L3) 4 Good Ankle/Foot Strength Ankle and Foot Manual Muscle Testing Right Dorsiflexion (L4) 5 Normal Plantarflexion (S1) 5 Normal Left Dorsiflexion (L4) 5 Normal Plantarflexion (S1) 5 Normal Comments PF tested seated PT-OP-Q Treatments Start: 05/23/20 17:56 Freq: Status: Active Protocol: Document 05/24/20 09:04 [facility] (Rec: 05/24/20 14:28 [facility] [id number]) Therapeutic Exercises Supine Exercises pelvic tilt Supine Exercise Name post Reps/Minutes 10 Self-Care/Home Management Treatment Education Other Education edu to move around while at desk. Take breaks or stretch while on phone, do AROM exercises when sitting PT-OP-T Assessment and Plan Start: 05/23/20 17:56 Freq: Status: Active Protocol: Document 05/24/20 09:04 [facility] (Rec: 05/24/20 09:47 [facility] [id number]) Physical Therapy Assessment Rehab Potential Rehabilitation Potential Good Evaluation Complexity Number of Personal Factors/Comorbidities 3 or More Number of Body Systems Impaired 4 or More Clinical Presentation at Evaluation Evolving Impairments Impairments Activity Tolerance,Balance, Functional Activities, Functional Mobility,Gait,Pain, Posture,ROM,Soft Tissue Mobility,Strength Goals LEFS Impairment 45/80 Information Systems Security Developer Goal (LTG) Pt will improve to 60/80 to show improved functional ability. LTG Duration 07/24/20 ADLs Short Term Goal (STG) Pt will be able to don/doff shoes even with zippers or laces without difficulty or inc pain. STG Duration 07/04/20 Information Systems Security Developer Goal (LTG) Pt will be able to do sit<> stand without increased pain LTG Duration 07/24/20 strength Short Term Goal (STG) Pt will be indep with HEP. STG Duration 06/23/20 Intermediate Goal (LTG) Pt will score 5/5 on LE strength and 3/5 on EFT, LPM to show improved stability in order to allow pt to have greater ease with transitional movements with less pain. LTG Duration 07/24/20 activities Short Term Goal (STG) Pt will be able to bike with grandkids without inc pain. STG Duration 07/09/20 Intermediate Goal (LTG) Pt will be able to walk a mile with minimal difficulty and no more than 2 points inc in pain. LTG Duration 07/24/20 Assessment Summary Assessment Pt presents with B knee pain and LBP that has created significant daily limitation for her. Her back has gotten bad enough that she has to stop in the parking lot at work to stop her back from catching. She is limited from ability to walk, garden, play with her grandkids, transition between surfaces, and particiapte in her work d/ t her significant daily pain. Pt would benefit from skilled PT to improve joint stability, inc LE & core stength, improve posture, improve gait mechanics and balance and dec pain. Physical Therapy Plan Frequency and Duration Frequency of Treatment 2x/Week Duration of Treatment 2 months Plan of Care Start Date 05/24/20 Plan of Care End Date 07/24/20 Therapeutic Interventions Therapeutic Interventions Aquatic Therapy,Balance Training,Gait Training,Home Exercise Program,Joint Mobilizations,Manual Therapy, Neuromuscular Re-education, Patient/Caregiver Education, Self-Care/Home Management,Soft Tissue Mobilization,Taping, Therapeutic Activities, Therapeutic Exercises Modalities Cold Pack/Ice Massage,Electric Stimulation,Hot Packs, Infrared Therapy,Iontophoresis ,Traction- Mechanical, Ultrasound Next Visit Focus/Plan Next Note Type Treatment Note Next Visit Plan knee ROM, administer HEP (s/l hip abd, clamshells, bridges, supine core progression), STM to back & hips, hip mobs
--- NOTE | 2020-05-24 14:51 | PT.OPPOC ---
Physical, Occupational & Speech Therapy At [facility] Current Diagnoses Unilateral primary osteoarthritis, right knee (05/24/20) Unilateral primary osteoarthritis, left knee (05/24/20) Spondylosis without myelopathy or radiculopathy, lumbar region (05/24/20) Difficulty in walking, not elsewhere classified (05/24/20) Abnormal posture (05/24/20) Weakness (05/24/20) Visit Care Team Role Provider Type SEDRICK Morejon Family Provider Non-Staff Primary Care Provider Specialty: Medical Address: [address] [place] [address], [phone] Email: Sergey Boss MD Attending Provider Non-Staff Referring Provider Specialty: Orthopedic Surgery Address: [address] [place] [address], [phone] Email: Plan Of Care PT-OP-T Assessment and Plan Start: 05/23/20 17:56 Freq: Status: Active Protocol: Document 05/24/20 09:04 [facility] (Rec: 05/24/20 09:47 [facility] [id number]) Physical Therapy Assessment Rehab Potential Rehabilitation Potential Good Evaluation Complexity Number of Personal Factors/Comorbidities 3 or More Number of Body Systems Impaired 4 or More Clinical Presentation at Evaluation Evolving Impairments Impairments Activity Tolerance,Balance, Functional Activities, Functional Mobility,Gait,Pain, Posture,ROM,Soft Tissue Mobility,Strength Goals LEFS Impairment 45/80 Aircraft Restorer Goal (LTG) Pt will improve to 60/80 to show improved functional ability. LTG Duration 07/24/20 ADLs Short Term Goal (STG) Pt will be able to don/doff shoes even with zippers or laces without difficulty or inc pain. STG Duration 07/04/20 Alf Goal (LTG) Pt will be able to do sit<> stand without increased pain LTG Duration 07/24/20 strength Short Term Goal (STG) Pt will be indep with HEP. STG Duration 06/23/20 Aircraft Restorer Goal (LTG) Pt will score 5/5 on LE strength and 3/5 on EFT, LPM to show improved stability in order to allow pt to have greater ease with transitional movements with less pain. LTG Duration 07/24/20 activities Short Term Goal (STG) Pt will be able to bike with grandkids without inc pain. STG Duration 07/09/20 Aircraft Restorer Goal (LTG) Pt will be able to walk a mile with minimal difficulty and no more than 2 points inc in pain. LTG Duration 07/24/20 Assessment Summary Assessment Pt presents with B knee pain and LBP that has created significant daily limitation for her. Her back has gotten bad enough that she has to stop in the parking lot at work to stop her back from catching. She is limited from ability to walk, garden, play with her grandkids, transition between surfaces, and particiapte in her work d/ t her significant daily pain. Pt would benefit from skilled PT to improve joint stability, inc LE & core stength, improve posture, improve gait mechanics and balance and dec pain. Physical Therapy Plan Frequency and Duration Frequency of Treatment 2x/Week Duration of Treatment 2 months Plan of Care Start Date 05/24/20 Plan of Care End Date 07/24/20 Therapeutic Interventions Therapeutic Interventions Aquatic Therapy,Balance Training,Gait Training,Home Exercise Program,Joint Mobilizations,Manual Therapy, Neuromuscular Re-education, Patient/Caregiver Education, Self-Care/Home Management,Soft Tissue Mobilization,Taping, Therapeutic Activities, Therapeutic Exercises Modalities Cold Pack/Ice Massage,Electric Stimulation,Hot Packs, Infrared Therapy,Iontophoresis ,Traction- Mechanical, Ultrasound Next Visit Focus/Plan Next Note Type Treatment Note Next Visit Plan knee ROM, administer HEP (s/l hip abd, clamshells, bridges, supine core progression), STM to back & hips, hip mobs Plan of Care Dates Plan of Care Start Date 05/24/20 Plan of Care End Date 07/24/20 Electronically Signed by: Fernanda Novak, PT 05/24/20 [id number] Please Sign and Return: I have reviewed this Plan of Care and certify that the skilled therapy services above are required to meet the patient?s needs. Physician Signature Date Printed Name and Credentials Clinical Instructor Signature Printed Name and Credentials
--- NOTE | 2020-05-29 09:12 | PT.OTN ---
Current Diagnoses Unilateral primary osteoarthritis, right knee (05/29/20) Unilateral primary osteoarthritis, left knee (05/29/20) Spondylosis without myelopathy or radiculopathy, lumbar region (05/29/20) Difficulty in walking, not elsewhere classified (05/29/20) Abnormal posture (05/29/20) Weakness (05/29/20) Physical Therapy Treatment Note PT-OP-A Visit Information Start: 05/23/20 17:56 Freq: Status: Active Protocol: Document 05/29/20 07:24 [facility] (Rec: 05/29/20 09:03 [facility] [id number]) Out-Patient Physical Therapy Visit Information Visit Information Visit Type Treatment Note Visit Start Time 08:16 Visit Stop Time 08:58 Total Visit Minutes 42 Visit Number 2 Number of MANUSCRIPT READER Visits 0 PT-OP-B Current Condition Start: 05/23/20 17:56 Freq: Status: Active Protocol: Document 05/24/20 09:04 [facility] (Rec: 05/24/20 09:47 [facility] [id number]) Current Condition History of Current Condition Onset Date chronic Current Complaints LBP & B knee pain History of Current Condition Pt reports LBP started decades ago fromf alling down the stairs. Pt reprots knee pain starting 10 years ago. She has a torn meniscus but that got better with PT. Now arthritis noted. Pt reports LB just locks and it takes her stopping mult times on her way to her car. PT reports getting B sciatica to her knees. Prior Treatments and Tests cortizone injections that helped knees Treatment Goals Patient/Caregiver Goals to get stronger so has a better rehab, be able to bike w/grandkids, be able to go walking Personal Factors Other Personal Factors That May Effect appendectomy, ovarian cyst Therapy/Recovery removed, back pain, B knee pain, oopherectomy, bladder sling PT-OP-C Subjective Start: 05/23/20 17:56 Freq: Status: Active Protocol: Document 05/29/20 07:24 [facility] (Rec: 05/29/20 09:03 [facility] [id number]) OP-PT Subjective Patient Comments Patient Comments Pt reports busy weekend that she had to work 1 day PT-OP-F Manual Assessment Start: 05/23/20 17:56 Freq: Status: Active Protocol: Document 05/24/20 09:04 [facility] (Rec: 05/24/20 09:47 [facility] [id number]) Manual Assessments Joint Mobility Assessment Joint Mobility Assessment IR of femurs & ER of tibia B, R valgus rearfoot, turning out of RLE in standing PT-OP-G Mobility & Gait Start: 05/23/20 17:56 Freq: Status: Active Protocol: Document 05/24/20 09:04 [facility] (Rec: 05/24/20 09:47 [facility] [id number]) OP Gait Assessment Comments Gait Comments lat leaning B w/less wt shift to L, dec push off B PT-OP-J Posture/Palpation/Skin Start: 05/23/20 17:56 Freq: Status: Active Protocol: Document 05/24/20 09:04 [facility] (Rec: 05/24/20 09:47 [facility] [id number]) Posture Evaluation Whitney Postural Classification System Whitney Postural Classifications Posterior/Anterior Lumbar Protective Mechanism Left AP 1 Lumbar Protective Mechanism Right AP 1 Lumbar Protective Mechanism Left PA 1 Lumbar Protective Mechanism Right PA 1 Comments Posture Comments fwd head & inc kyphosis w/fwd shoulders PT-OP-K Range of Motion Start: 05/23/20 17:56 Freq: Status: Active Protocol: Document 05/24/20 09:04 [facility] (Rec: 05/24/20 09:47 [facility] [id number]) Lumbar Spine Range of Motion Lumbar Spine Active Degrees Flexion 30 Extension 2 Rotation Left 33 Rotation Right 13 Lateral Flexion Left 13 Lateral Flexion Right 16 Comments pain ext PT-OP-L Special Tests Start: 05/23/20 17:56 Freq: Status: Active Protocol: Document 05/24/20 09:04 [facility] (Rec: 05/24/20 09:47 [facility] [id number]) Special Tests Knee Special Tests Straight Leg Raise Comments about 70 deg B HS tightness PT-OP-M Strength Start: 05/23/20 17:56 Freq: Status: Active Protocol: Document 05/24/20 09:04 [facility] (Rec: 05/24/20 09:47 [facility] [id number]) Hip Strength Hip Manual Muscle Testing Right Flexion (L2) 4- Good- Extension (S1) 3+ Fair+ Abduction 4- Good- Adduction 4- Good- External Rotation 4 Good Internal Rotation 4- Good- Left Flexion (L2) 4- Good- Extension (S1) 3+ Fair+ Abduction 4 Good Adduction 3 Fair External Rotation 4 Good Internal Rotation 4 Good Knee Strength Knee Manual Muscle Testing Right Flexion (S2) 4+ Good+ Extension (L3) 4 Good Left Flexion (S2) 4+ Good+ Extension (L3) 4 Good Ankle/Foot Strength Ankle and Foot Manual Muscle Testing Right Dorsiflexion (L4) 5 Normal Plantarflexion (S1) 5 Normal Left Dorsiflexion (L4) 5 Normal Plantarflexion (S1) 5 Normal Comments PF tested seated PT-OP-Q Treatments Start: 05/23/20 17:56 Freq: Status: Active Protocol: Document 05/29/20 07:24 [facility] (Rec: 05/29/20 09:03 [facility] [id number]) Therapeutic Exercises Supine Exercises flex Supine Exercise Name marching Side bilateral Reps/Minutes 15 Comments focus on core bridge Side bilateral Reps/Minutes [id number] pelvic tilt Supine Exercise Name post Reps/Minutes 10 Sidelying Exercises clamshell Side bilateral Reps/Minutes 15 abd Side bilateral Reps/Minutes 15 Manual Therapy Treatment Soft Tissue Mobilization ITB Body Location L>R Mobilization Type Rolling Intensity/Depth Moderate quads Body Location R VL lat border Mobilization Type Rolling Intensity/Depth Moderate PT-OP-T Assessment and Plan Start: 05/23/20 17:56 Freq: Status: Active Protocol: Document 05/29/20 07:24 [facility] (Rec: 05/29/20 09:03 [facility] [id number]) Physical Therapy Assessment Goals LEFS Impairment 45/80 Rail Car Painter/Sandblaster Goal (LTG) Pt will improve to 60/80 to show improved functional ability. LTG Duration 07/24/20 ADLs Short Term Goal (STG) Pt will be able to don/doff shoes even with zippers or laces without difficulty or inc pain. STG Duration 07/04/20 Rail Car Painter/Sandblaster Goal (LTG) Pt will be able to do sit<> stand without increased pain LTG Duration 07/24/20 strength Short Term Goal (STG) Pt will be indep with HEP. STG Duration 06/23/20 Prison Goal (LTG) Pt will score 5/5 on LE strength and 3/5 on EFT, LPM to show improved stability in order to allow pt to have greater ease with transitional movements with less pain. LTG Duration 07/24/20 activities Short Term Goal (STG) Pt will be able to bike with grandkids without inc pain. STG Duration 07/09/20 Rail Car Painter/Sandblaster Goal (LTG) Pt will be able to walk a mile with minimal difficulty and no more than 2 points inc in pain. LTG Duration 07/24/20 Assessment Summary Assessment Pt required cueing to keep core neutral during all exercises today and to make sure she breathes during use of core. Pt had limited PF mobility B with dec in all directions. Improved on R w/ STM to VL Physical Therapy Plan Frequency and Duration Frequency of Treatment 2x/Week Duration of Treatment 2 months Plan of Care Start Date 05/24/20 Plan of Care End Date 07/24/20 Next Visit Focus/Plan Next Note Type Treatment Note Next Visit Plan review HEP, STM to LEs & hip mobs
--- NOTE | 2020-06-05 13:45 | PT.OTN ---
Current Diagnoses Unilateral primary osteoarthritis, right knee (06/05/20) Unilateral primary osteoarthritis, left knee (06/05/20) Spondylosis without myelopathy or radiculopathy, lumbar region (06/05/20) Difficulty in walking, not elsewhere classified (06/05/20) Abnormal posture (06/05/20) Weakness (06/05/20) Physical Therapy Treatment Note PT-OP-A Visit Information Start: 05/23/20 17:56 Freq: Status: Active Protocol: Document 06/05/20 12:59 [facility] (Rec: 06/05/20 13:45 [facility] [id number]) Out-Patient Physical Therapy Visit Information Visit Information Visit Type Treatment Note Visit Start Time 13:00 Visit Stop Time 13:43 Total Visit Minutes 43 Visit Number 3 Number of LYE BATH OPERATOR Visits 0 PT-OP-B Current Condition Start: 05/23/20 17:56 Freq: Status: Active Protocol: Document 05/24/20 09:04 [facility] (Rec: 05/24/20 09:47 [facility] [id number]) Current Condition History of Current Condition Onset Date chronic Current Complaints LBP & B knee pain History of Current Condition Pt reports LBP started decades ago fromf alling down the stairs. Pt reprots knee pain starting 10 years ago. She has a torn meniscus but that got better with PT. Now arthritis noted. Pt reports LB just locks and it takes her stopping mult times on her way to her car. PT reports getting B sciatica to her knees. Prior Treatments and Tests cortizone injections that helped knees Treatment Goals Patient/Caregiver Goals to get stronger so has a better rehab, be able to bike w/grandkids, be able to go walking Personal Factors Other Personal Factors That May Effect appendectomy, ovarian cyst Therapy/Recovery removed, back pain, B knee pain, oopherectomy, bladder sling PT-OP-C Subjective Start: 05/23/20 17:56 Freq: Status: Active Protocol: Document 06/05/20 12:59 [facility] (Rec: 06/05/20 13:45 [facility] [id number]) OP-PT Subjective Patient Comments Patient Comments Pt reports doing exercises 1x PT-OP-F Manual Assessment Start: 05/23/20 17:56 Freq: Status: Active Protocol: Document 05/24/20 09:04 [facility] (Rec: 05/24/20 09:47 [facility] [id number]) Manual Assessments Joint Mobility Assessment Joint Mobility Assessment IR of femurs & ER of tibia B, R valgus rearfoot, turning out of RLE in standing PT-OP-G Mobility & Gait Start: 05/23/20 17:56 Freq: Status: Active Protocol: Document 05/24/20 09:04 [facility] (Rec: 05/24/20 09:47 [facility] [id number]) OP Gait Assessment Comments Gait Comments lat leaning B w/less wt shift to L, dec push off B PT-OP-J Posture/Palpation/Skin Start: 05/23/20 17:56 Freq: Status: Active Protocol: Document 05/24/20 09:04 [facility] (Rec: 05/24/20 09:47 [facility] [id number]) Posture Evaluation [facility] Postural Classification System Whitney Postural Classifications Posterior/Anterior Lumbar Protective Mechanism Left AP 1 Lumbar Protective Mechanism Right AP 1 Lumbar Protective Mechanism Left PA 1 Lumbar Protective Mechanism Right PA 1 Comments Posture Comments fwd head & inc kyphosis w/fwd shoulders PT-OP-K Range of Motion Start: 05/23/20 17:56 Freq: Status: Active Protocol: Document 05/24/20 09:04 [facility] (Rec: 05/24/20 09:47 [facility] [id number]) Lumbar Spine Range of Motion Lumbar Spine Active Degrees Flexion 30 Extension 2 Rotation Left 33 Rotation Right 13 Lateral Flexion Left 13 Lateral Flexion Right 16 Comments pain ext PT-OP-L Special Tests Start: 05/23/20 17:56 Freq: Status: Active Protocol: Document 05/24/20 09:04 [facility] (Rec: 05/24/20 09:47 [facility] [id number]) Special Tests Knee Special Tests Straight Leg Raise Comments about 70 deg B HS tightness PT-OP-M Strength Start: 05/23/20 17:56 Freq: Status: Active Protocol: Document 05/24/20 09:04 [facility] (Rec: 05/24/20 09:47 [facility] [id number]) Hip Strength Hip Manual Muscle Testing Right Flexion (L2) 4- Good- Extension (S1) 3+ Fair+ Abduction 4- Good- Adduction 4- Good- External Rotation 4 Good Internal Rotation 4- Good- Left Flexion (L2) 4- Good- Extension (S1) 3+ Fair+ Abduction 4 Good Adduction 3 Fair External Rotation 4 Good Internal Rotation 4 Good Knee Strength Knee Manual Muscle Testing Right Flexion (S2) 4+ Good+ Extension (L3) 4 Good Left Flexion (S2) 4+ Good+ Extension (L3) 4 Good Ankle/Foot Strength Ankle and Foot Manual Muscle Testing Right Dorsiflexion (L4) 5 Normal Plantarflexion (S1) 5 Normal Left Dorsiflexion (L4) 5 Normal Plantarflexion (S1) 5 Normal Comments PF tested seated PT-OP-Q Treatments Start: 05/23/20 17:56 Freq: Status: Active Protocol: Document 06/05/20 12:59 [facility] (Rec: 06/05/20 13:45 [facility] [id number]) Therapeutic Exercises Supine Exercises flex Supine Exercise Name 1.marching 2.SLR Side bilateral Reps/Minutes 15 ea Comments focus on core bridge Side bilateral Reps/Minutes [id number] without ball then 10x 3 on ball pelvic tilt Supine Exercise Name post Reps/Minutes 10 knees flex & 8 knees ext Sidelying Exercises clamshell Side bilateral Equipment Used L1 Reps/Minutes 15 abd Side bilateral Reps/Minutes 15 Manual Therapy Treatment Soft Tissue Mobilization adductors Body Location R Mobilization Type Rolling Intensity/Depth Moderate ITB Body Location L Mobilization Type Rolling Intensity/Depth Moderate quads Body Location R VM med border Mobilization Type Rolling Intensity/Depth Moderate PT-OP-T Assessment and Plan Start: 05/23/20 17:56 Freq: Status: Active Protocol: Document 06/05/20 12:59 [facility] (Rec: 06/05/20 13:45 [facility] [id number]) Physical Therapy Assessment Goals LEFS Impairment 45/80 Halfway Goal (LTG) Pt will improve to 60/80 to show improved functional ability. LTG Duration 07/24/20 ADLs Short Term Goal (STG) Pt will be able to don/doff shoes even with zippers or laces without difficulty or inc pain. STG Duration 07/04/20 Hotel Desk Clerk Goal (LTG) Pt will be able to do sit<> stand without increased pain LTG Duration 07/24/20 strength Short Term Goal (STG) Pt will be indep with HEP. STG Duration 06/23/20 Halfway Goal (LTG) Pt will score 5/5 on LE strength and 3/5 on EFT, LPM to show improved stability in order to allow pt to have greater ease with transitional movements with less pain. LTG Duration 07/24/20 activities Short Term Goal (STG) Pt will be able to bike with grandkids without inc pain. STG Duration 07/09/20 Halfway Goal (LTG) Pt will be able to walk a mile with minimal difficulty and no more than 2 points inc in pain. LTG Duration 07/24/20 Assessment Summary Assessment Pt required cueing for core engagement vs heavy HS engagment with pelvic tilts. Pt had cramping in HS w/ bridges so changed to w/ball which ehlped. Less cueing required with s/l exercises Physical Therapy Plan Frequency and Duration Frequency of Treatment 2x/Week Duration of Treatment 2 months Plan of Care Start Date 05/24/20 Plan of Care End Date 07/24/20 Next Visit Focus/Plan Next Note Type Treatment Note Next Visit Plan cont to work on progression on supine core, try seated ball exericses
--- NOTE | 2020-06-07 13:49 | PT.OTN ---
Current Diagnoses Unilateral primary osteoarthritis, right knee (06/07/20) Unilateral primary osteoarthritis, left knee (06/07/20) Spondylosis without myelopathy or radiculopathy, lumbar region (06/07/20) Difficulty in walking, not elsewhere classified (06/07/20) Abnormal posture (06/07/20) Weakness (06/07/20) Physical Therapy Treatment Note PT-OP-A Visit Information Start: 05/23/20 17:56 Freq: Status: Active Protocol: Document 06/07/20 13:12 [facility] (Rec: 06/07/20 13:49 [facility] [id number]) Out-Patient Physical Therapy Visit Information Visit Information Visit Type Treatment Note Visit Start Time 13:04 Visit Stop Time 13:43 Total Visit Minutes 39 Visit Number 4 Number of CREDIT PRODUCT ANALYST Visits 0 PT-OP-B Current Condition Start: 05/23/20 17:56 Freq: Status: Active Protocol: Document 05/24/20 09:04 [facility] (Rec: 05/24/20 09:47 [facility] [id number]) Current Condition History of Current Condition Onset Date chronic Current Complaints LBP & B knee pain History of Current Condition Pt reports LBP started decades ago fromf alling down the stairs. Pt reprots knee pain starting 10 years ago. She has a torn meniscus but that got better with PT. Now arthritis noted. Pt reports LB just locks and it takes her stopping mult times on her way to her car. PT reports getting B sciatica to her knees. Prior Treatments and Tests cortizone injections that helped knees Treatment Goals Patient/Caregiver Goals to get stronger so has a better rehab, be able to bike w/grandkids, be able to go walking Personal Factors Other Personal Factors That May Effect appendectomy, ovarian cyst Therapy/Recovery removed, back pain, B knee pain, oopherectomy, bladder sling PT-OP-C Subjective Start: 05/23/20 17:56 Freq: Status: Active Protocol: Document 06/07/20 13:12 [facility] (Rec: 06/07/20 13:49 [facility] [id number]) OP-PT Subjective Patient Comments Patient Comments Pt did exercises at home. No pain with exercises, only stretching. PT-OP-F Manual Assessment Start: 05/23/20 17:56 Freq: Status: Active Protocol: Document 05/24/20 09:04 [facility] (Rec: 05/24/20 09:47 [facility] [id number]) Manual Assessments Joint Mobility Assessment Joint Mobility Assessment IR of femurs & ER of tibia B, R valgus rearfoot, turning out of RLE in standing PT-OP-G Mobility & Gait Start: 05/23/20 17:56 Freq: Status: Active Protocol: Document 05/24/20 09:04 [facility] (Rec: 05/24/20 09:47 [facility] [id number]) OP Gait Assessment Comments Gait Comments lat leaning B w/less wt shift to L, dec push off B PT-OP-J Posture/Palpation/Skin Start: 05/23/20 17:56 Freq: Status: Active Protocol: Document 05/24/20 09:04 [facility] (Rec: 05/24/20 09:47 [facility] [id number]) Posture Evaluation Whitney Postural Classification System Whitney Postural Classifications Posterior/Anterior Lumbar Protective Mechanism Left AP 1 Lumbar Protective Mechanism Right AP 1 Lumbar Protective Mechanism Left PA 1 Lumbar Protective Mechanism Right PA 1 Comments Posture Comments fwd head & inc kyphosis w/fwd shoulders PT-OP-K Range of Motion Start: 05/23/20 17:56 Freq: Status: Active Protocol: Document 05/24/20 09:04 [facility] (Rec: 05/24/20 09:47 [facility] [id number]) Lumbar Spine Range of Motion Lumbar Spine Active Degrees Flexion 30 Extension 2 Rotation Left 33 Rotation Right 13 Lateral Flexion Left 13 Lateral Flexion Right 16 Comments pain ext PT-OP-L Special Tests Start: 05/23/20 17:56 Freq: Status: Active Protocol: Document 05/24/20 09:04 [facility] (Rec: 05/24/20 09:47 [facility] [id number]) Special Tests Knee Special Tests Straight Leg Raise Comments about 70 deg B HS tightness PT-OP-M Strength Start: 05/23/20 17:56 Freq: Status: Active Protocol: Document 05/24/20 09:04 [facility] (Rec: 05/24/20 09:47 [facility] [id number]) Hip Strength Hip Manual Muscle Testing Right Flexion (L2) 4- Good- Extension (S1) 3+ Fair+ Abduction 4- Good- Adduction 4- Good- External Rotation 4 Good Internal Rotation 4- Good- Left Flexion (L2) 4- Good- Extension (S1) 3+ Fair+ Abduction 4 Good Adduction 3 Fair External Rotation 4 Good Internal Rotation 4 Good Knee Strength Knee Manual Muscle Testing Right Flexion (S2) 4+ Good+ Extension (L3) 4 Good Left Flexion (S2) 4+ Good+ Extension (L3) 4 Good Ankle/Foot Strength Ankle and Foot Manual Muscle Testing Right Dorsiflexion (L4) 5 Normal Plantarflexion (S1) 5 Normal Left Dorsiflexion (L4) 5 Normal Plantarflexion (S1) 5 Normal Comments PF tested seated PT-OP-Q Treatments Start: 05/23/20 17:56 Freq: Status: Active Protocol: Document 06/07/20 13:12 [facility] (Rec: 06/07/20 13:49 [facility] [id number]) Therapeutic Exercises Supine Exercises flex Supine Exercise Name 1.alt marching 2.SLR Side bilateral Reps/Minutes 15 ea Comments focus on core Standing Exercises stretch Standing Exercise Name pec corner Side bilateral Reps/Minutes 30 sec wall posture Standing Exercise Name wall roll up with arm ext Side bilateral Reps/Minutes 2x 30 sec Manual Therapy Treatment Soft Tissue Mobilization lumbar Body Location L>R Lumbar spine ES & QL Mobilization Type Rolling Intensity/Depth Moderate Body Position Sidelying PT-OP-T Assessment and Plan Start: 05/23/20 17:56 Freq: Status: Active Protocol: Document 06/07/20 13:12 [facility] (Rec: 06/07/20 13:49 [facility] [id number]) Physical Therapy Assessment Goals LEFS Impairment 45/80 [facility] Goal (LTG) Pt will improve to 60/80 to show improved functional ability. LTG Duration 07/24/20 ADLs Short Term Goal (STG) Pt will be able to don/doff shoes even with zippers or laces without difficulty or inc pain. STG Duration 07/04/20 Transporter Radiology Goal (LTG) Pt will be able to do sit<> stand without increased pain LTG Duration 07/24/20 strength Short Term Goal (STG) Pt will be indep with HEP. STG Duration 06/23/20 Transporter Radiology Goal (LTG) Pt will score 5/5 on LE strength and 3/5 on EFT, LPM to show improved stability in order to allow pt to have greater ease with transitional movements with less pain. LTG Duration 07/24/20 activities Short Term Goal (STG) Pt will be able to bike with grandkids without inc pain. STG Duration 07/09/20 [facility] Goal (LTG) Pt will be able to walk a mile with minimal difficulty and no more than 2 points inc in pain. LTG Duration 07/24/20 Assessment Summary Assessment Pt reported relief after manual treatment with improved post dep after. She still required cueing for breathing during core exercises & maintaininng lumbar neutral. Physical Therapy Plan Frequency and Duration Frequency of Treatment 2x/Week Duration of Treatment 2 months Plan of Care Start Date 05/24/20 Plan of Care End Date 07/24/20 Next Visit Focus/Plan Next Note Type Treatment Note Next Visit Plan review seated ball exercises
--- NOTE | 2020-06-12 12:21 | PT.OTN ---
Current Diagnoses Bilateral primary osteoarthritis of knee (06/12/20) Spondylosis without myelopathy or radiculopathy, lumbar region (06/12/20) Difficulty in walking, not elsewhere classified (06/12/20) Abnormal posture (06/12/20) Weakness (06/12/20) Physical Therapy Treatment Note PT-OP-A Visit Information Start: 05/23/20 17:56 Freq: Status: Active Protocol: Document 06/12/20 11:24 [facility] (Rec: 06/12/20 12:21 [facility] [id number]) Out-Patient Physical Therapy Visit Information Visit Information Visit Type Treatment Note Visit Start Time 11:20 Visit Stop Time 12:00 Total Visit Minutes 40 Visit Number 5 Number of OFFICE MACHINE PUNCH OPERATOR Visits 0 PT-OP-B Current Condition Start: 05/23/20 17:56 Freq: Status: Active Protocol: Document 05/24/20 09:04 [facility] (Rec: 05/24/20 09:47 [facility] [id number]) Current Condition History of Current Condition Onset Date chronic Current Complaints LBP & B knee pain History of Current Condition Pt reports LBP started decades ago fromf alling down the stairs. Pt reprots knee pain starting 10 years ago. She has a torn meniscus but that got better with PT. Now arthritis noted. Pt reports LB just locks and it takes her stopping mult times on her way to her car. PT reports getting B sciatica to her knees. Prior Treatments and Tests cortizone injections that helped knees Treatment Goals Patient/Caregiver Goals to get stronger so has a better rehab, be able to bike w/grandkids, be able to go walking Personal Factors Other Personal Factors That May Effect appendectomy, ovarian cyst Therapy/Recovery removed, back pain, B knee pain, oopherectomy, bladder sling PT-OP-C Subjective Start: 05/23/20 17:56 Freq: Status: Active Protocol: Document 06/12/20 11:24 [facility] (Rec: 06/12/20 12:21 [facility] [id number]) OP-PT Subjective Patient Comments Patient Comments Not noting much change. got a tball but needs it inflated PT-OP-F Manual Assessment Start: 05/23/20 17:56 Freq: Status: Active Protocol: Document 05/24/20 09:04 [facility] (Rec: 05/24/20 09:47 [facility] [id number]) Manual Assessments Joint Mobility Assessment Joint Mobility Assessment IR of femurs & ER of tibia B, R valgus rearfoot, turning out of RLE in standing PT-OP-G Mobility & Gait Start: 05/23/20 17:56 Freq: Status: Active Protocol: Document 05/24/20 09:04 [facility] (Rec: 05/24/20 09:47 [facility] [id number]) OP Gait Assessment Comments Gait Comments lat leaning B w/less wt shift to L, dec push off B PT-OP-J Posture/Palpation/Skin Start: 05/23/20 17:56 Freq: Status: Active Protocol: Document 05/24/20 09:04 [facility] (Rec: 05/24/20 09:47 [facility] [id number]) Posture Evaluation [facility] Postural Classification System Whitney Postural Classifications Posterior/Anterior Lumbar Protective Mechanism Left AP 1 Lumbar Protective Mechanism Right AP 1 Lumbar Protective Mechanism Left PA 1 Lumbar Protective Mechanism Right PA 1 Comments Posture Comments fwd head & inc kyphosis w/fwd shoulders PT-OP-K Range of Motion Start: 05/23/20 17:56 Freq: Status: Active Protocol: Document 05/24/20 09:04 [facility] (Rec: 05/24/20 09:47 [facility] [id number]) Lumbar Spine Range of Motion Lumbar Spine Active Degrees Flexion 30 Extension 2 Rotation Left 33 Rotation Right 13 Lateral Flexion Left 13 Lateral Flexion Right 16 Comments pain ext PT-OP-L Special Tests Start: 05/23/20 17:56 Freq: Status: Active Protocol: Document 05/24/20 09:04 [facility] (Rec: 05/24/20 09:47 [facility] [id number]) Special Tests Knee Special Tests Straight Leg Raise Comments about 70 deg B HS tightness PT-OP-M Strength Start: 05/23/20 17:56 Freq: Status: Active Protocol: Document 05/24/20 09:04 [facility] (Rec: 05/24/20 09:47 [facility] [id number]) Hip Strength Hip Manual Muscle Testing Right Flexion (L2) 4- Good- Extension (S1) 3+ Fair+ Abduction 4- Good- Adduction 4- Good- External Rotation 4 Good Internal Rotation 4- Good- Left Flexion (L2) 4- Good- Extension (S1) 3+ Fair+ Abduction 4 Good Adduction 3 Fair External Rotation 4 Good Internal Rotation 4 Good Knee Strength Knee Manual Muscle Testing Right Flexion (S2) 4+ Good+ Extension (L3) 4 Good Left Flexion (S2) 4+ Good+ Extension (L3) 4 Good Ankle/Foot Strength Ankle and Foot Manual Muscle Testing Right Dorsiflexion (L4) 5 Normal Plantarflexion (S1) 5 Normal Left Dorsiflexion (L4) 5 Normal Plantarflexion (S1) 5 Normal Comments PF tested seated PT-OP-Q Treatments Start: 05/23/20 17:56 Freq: Status: Active Protocol: Document 06/12/20 11:24 [facility] (Rec: 06/12/20 12:21 [facility] [id number]) Gym Equipment Therapeutic Ball supine Ball Size/Color 65 cm Body Position Supine Reps/Duration 10 ea Comments 1. bridge 2. LTR B 3. knee flex/ext w/ core focus seated Ball Size/Color 65 cm Body Position seated Reps/Duration 15 ea Comments 1. bouncing 2. pelvic tilts 3. pelvic circles B 4. march B Therapeutic Exercises Standing Exercises wall posture Standing Exercise Name wall roll up with arm ext Side bilateral Reps/Minutes 1 min Manual Therapy Treatment Soft Tissue Mobilization lumbar Comments R QL & ES & lat over iliac crest in s/l w/post dep/ant elevation Seated w/flex along thoracolumbar paraspinlas PT-OP-T Assessment and Plan Start: 05/23/20 17:56 Freq: Status: Active Protocol: Document 06/12/20 11:24 [facility] (Rec: 06/12/20 12:21 [facility] [id number]) Physical Therapy Assessment Goals LEFS Impairment 45/80 Retirement Goal (LTG) Pt will improve to 60/80 to show improved functional ability. LTG Duration 07/24/20 ADLs Short Term Goal (STG) Pt will be able to don/doff shoes even with zippers or laces without difficulty or inc pain. STG Duration 07/04/20 Retirement Goal (LTG) Pt will be able to do sit<> stand without increased pain LTG Duration 07/24/20 strength Short Term Goal (STG) Pt will be indep with HEP. STG Duration 06/23/20 Station Supervisor Goal (LTG) Pt will score 5/5 on LE strength and 3/5 on EFT, LPM to show improved stability in order to allow pt to have greater ease with transitional movements with less pain. LTG Duration 07/24/20 activities Short Term Goal (STG) Pt will be able to bike with grandkids without inc pain. STG Duration 07/09/20 Station Supervisor Goal (LTG) Pt will be able to walk a mile with minimal difficulty and no more than 2 points inc in pain. LTG Duration 07/24/20 Assessment Summary Assessment Pt did well with exercise but did require cueing for core & posture duting exercises. Improved soft tissue mobility of lumbar spine and dec tenderness w/soft tissue work. Physical Therapy Plan Frequency and Duration Frequency of Treatment 2x/Week Duration of Treatment 2 months Plan of Care Start Date 05/24/20 Plan of Care End Date 07/24/20 Next Visit Focus/Plan Next Note Type Treatment Note Next Visit Plan review seated & supine ball exercises
--- NOTE | 2020-06-14 10:43 | PT.OTN ---
Current Diagnoses Bilateral primary osteoarthritis of knee (06/14/20) Spondylosis without myelopathy or radiculopathy, lumbar region (06/14/20) Difficulty in walking, not elsewhere classified (06/14/20) Abnormal posture (06/14/20) Weakness (06/14/20) Physical Therapy Treatment Note PT-OP-A Visit Information Start: 05/23/20 17:56 Freq: Status: Active Protocol: Document 06/14/20 09:51 [facility] (Rec: 06/14/20 10:37 [facility] [id number]) Out-Patient Physical Therapy Visit Information Visit Information Visit Type Treatment Note Visit Start Time 09:50 Visit Stop Time 10:30 Total Visit Minutes 40 Visit Number 6 Number of SUBSTATION ELECTRICIAN Visits 0 PT-OP-B Current Condition Start: 05/23/20 17:56 Freq: Status: Active Protocol: Document 05/24/20 09:04 [facility] (Rec: 05/24/20 09:47 [facility] [id number]) Current Condition History of Current Condition Onset Date chronic Current Complaints LBP & B knee pain History of Current Condition Pt reports LBP started decades ago fromf alling down the stairs. Pt reprots knee pain starting 10 years ago. She has a torn meniscus but that got better with PT. Now arthritis noted. Pt reports LB just locks and it takes her stopping mult times on her way to her car. PT reports getting B sciatica to her knees. Prior Treatments and Tests cortizone injections that helped knees Treatment Goals Patient/Caregiver Goals to get stronger so has a better rehab, be able to bike w/grandkids, be able to go walking Personal Factors Other Personal Factors That May Effect appendectomy, ovarian cyst Therapy/Recovery removed, back pain, B knee pain, oopherectomy, bladder sling PT-OP-C Subjective Start: 05/23/20 17:56 Freq: Status: Active Protocol: Document 06/14/20 09:51 [facility] (Rec: 06/14/20 10:37 [facility] [id number]) OP-PT Subjective Patient Comments Patient Comments Likes rubber band w/clamshells Patient Questionnaires Lower Extremity Functional Scale LEFS Score 36 Oswestry Low Back Index Oswestry Score 22/50 PT-OP-F Manual Assessment Start: 05/23/20 17:56 Freq: Status: Active Protocol: Document 05/24/20 09:04 [facility] (Rec: 05/24/20 09:47 [facility] [id number]) Manual Assessments Joint Mobility Assessment Joint Mobility Assessment IR of femurs & ER of tibia B, R valgus rearfoot, turning out of RLE in standing PT-OP-G Mobility & Gait Start: 05/23/20 17:56 Freq: Status: Active Protocol: Document 05/24/20 09:04 [facility] (Rec: 05/24/20 09:47 [facility] [id number]) OP Gait Assessment Comments Gait Comments lat leaning B w/less wt shift to L, dec push off B PT-OP-J Posture/Palpation/Skin Start: 05/23/20 17:56 Freq: Status: Active Protocol: Document 06/14/20 09:51 [facility] (Rec: 06/14/20 10:37 [facility] [id number]) Posture Evaluation Whitney Postural Classification System Whitney Postural Classifications Posterior/Anterior Lumbar Protective Mechanism Left AP 1 Lumbar Protective Mechanism Right AP 1 Lumbar Protective Mechanism Left PA 1 Lumbar Protective Mechanism Right PA 1 PT-OP-K Range of Motion Start: 05/23/20 17:56 Freq: Status: Active Protocol: Document 05/24/20 09:04 [facility] (Rec: 05/24/20 09:47 [facility] [id number]) Lumbar Spine Range of Motion Lumbar Spine Active Degrees Flexion 30 Extension 2 Rotation Left 33 Rotation Right 13 Lateral Flexion Left 13 Lateral Flexion Right 16 Comments pain ext PT-OP-L Special Tests Start: 05/23/20 17:56 Freq: Status: Active Protocol: Document 05/24/20 09:04 [facility] (Rec: 05/24/20 09:47 [facility] [id number]) Special Tests Knee Special Tests Straight Leg Raise Comments about 70 deg B HS tightness PT-OP-M Strength Start: 05/23/20 17:56 Freq: Status: Active Protocol: Document 06/14/20 09:51 [facility] (Rec: 06/14/20 10:37 [facility] [id number]) Hip Strength Hip Manual Muscle Testing Right Flexion (L2) 4- Good- Extension (S1) 3+ Fair+ Abduction 4- Good- Adduction 4- Good- External Rotation 4 Good Internal Rotation 4- Good- Left Flexion (L2) 4- Good- Extension (S1) 3+ Fair+ Abduction 4 Good Adduction 3+ Fair+ External Rotation 4 Good Internal Rotation 4 Good Knee Strength Knee Manual Muscle Testing Right Flexion (S2) 4+ Good+ Extension (L3) 4+ Good+ Left Flexion (S2) 4+ Good+ Extension (L3) 4+ Good+ Ankle/Foot Strength Ankle and Foot Manual Muscle Testing Right Dorsiflexion (L4) 5 Normal Plantarflexion (S1) 5 Normal Left Dorsiflexion (L4) 5 Normal Plantarflexion (S1) 5 Normal Comments PF tested seated PT-OP-Q Treatments Start: 05/23/20 17:56 Freq: Status: Active Protocol: Document 06/14/20 09:51 [facility] (Rec: 06/14/20 10:37 [facility] [id number]) Gym Equipment Therapeutic Ball supine Ball Size/Color 65 cm Body Position Supine Reps/Duration 15 ea Comments 1. bridge 2. LTR B 3. knee flex/ext w/ core focus seated Ball Size/Color 65 cm Body Position seated Reps/Duration 15 ea Comments 1. bouncing 2. pelvic tilts 3. pelvic circles B 4. march B 5. knee ext B Therapeutic Exercises Standing Exercises side step Side bilateral Equipment Used yellow tband Reps/Minutes 10ftx2 wall posture Standing Exercise Name wall roll up with arm ext Side bilateral Reps/Minutes 1 min Manual Therapy Treatment Soft Tissue Mobilization lumbar Comments R QL & ES & lat over iliac crest in s/l w/post dep/ant elevation PT-OP-T Assessment and Plan Start: 05/23/20 17:56 Freq: Status: Active Protocol: Document 06/14/20 09:51 [facility] (Rec: 06/14/20 10:37 [facility] [id number]) Physical Therapy Assessment Goals LEFS Impairment 45/80 Assisted Goal (LTG) Pt will improve to 60/80 to show improved functional ability. LTG Duration 07/24/20 ADLs Short Term Goal (STG) Pt will be able to don/doff shoes even with zippers or laces without difficulty or inc pain. STG Duration 07/04/20 Telemarketing Supervisor Goal (LTG) Pt will be able to do sit<> stand without increased pain LTG Duration 07/24/20 strength Short Term Goal (STG) Pt will be indep with HEP. STG Duration 06/23/20 Telemarketing Supervisor Goal (LTG) Pt will score 5/5 on LE strength and 3/5 on EFT, LPM to show improved stability in order to allow pt to have greater ease with transitional movements with less pain. LTG Duration 07/24/20 activities Short Term Goal (STG) Pt will be able to bike with grandkids without inc pain. STG Duration 07/09/20 Assisted Goal (LTG) Pt will be able to walk a mile with minimal difficulty and no more than 2 points inc in pain. LTG Duration 07/24/20 Assessment Summary Assessment Pt is making gradual improvements over past 3 weeks with strength & functional ability. She is now able to walk from her clinic to PT clinic without mult breaks with is an improvement. Improvedment with exercise performance Physical Therapy Plan Frequency and Duration Frequency of Treatment 2x/Week Duration of Treatment 2 months Plan of Care Start Date 05/24/20 Plan of Care End Date 07/24/20 Next Visit Focus/Plan Next Note Type Treatment Note Next Visit Plan work on posture and core
--- NOTE | 2020-07-18 09:02 | PT.OTN ---
Current Diagnoses Bilateral primary osteoarthritis of knee (07/18/20) Spondylosis without myelopathy or radiculopathy, lumbar region (07/18/20) Difficulty in walking, not elsewhere classified (07/18/20) Abnormal posture (07/18/20) Weakness (07/18/20) Physical Therapy Treatment Note PT-OP-A Visit Information Start: 05/23/20 17:56 Freq: Status: Active Protocol: Document 07/18/20 08:18 [facility] (Rec: 07/18/20 09:02 [facility] [id number]) Out-Patient Physical Therapy Visit Information Visit Information Visit Type Treatment Note Visit Start Time 08:16 Visit Stop Time 08:58 Total Visit Minutes 42 Visit Number 7 Number of LOCKSMITH Visits 0 PT-OP-B Current Condition Start: 05/23/20 17:56 Freq: Status: Active Protocol: Document 05/24/20 09:04 [facility] (Rec: 05/24/20 09:47 [facility] [id number]) Current Condition History of Current Condition Onset Date chronic Current Complaints LBP & B knee pain History of Current Condition Pt reports LBP started decades ago fromf alling down the stairs. Pt reprots knee pain starting 10 years ago. She has a torn meniscus but that got better with PT. Now arthritis noted. Pt reports LB just locks and it takes her stopping mult times on her way to her car. PT reports getting B sciatica to her knees. Prior Treatments and Tests cortizone injections that helped knees Treatment Goals Patient/Caregiver Goals to get stronger so has a better rehab, be able to bike w/grandkids, be able to go walking Personal Factors Other Personal Factors That May Effect appendectomy, ovarian cyst Therapy/Recovery removed, back pain, B knee pain, oopherectomy, bladder sling PT-OP-C Subjective Start: 05/23/20 17:56 Freq: Status: Active Protocol: Document 07/18/20 08:18 [facility] (Rec: 07/18/20 09:02 [facility] [id number]) OP-PT Subjective Patient Comments Patient Comments Pt reports has not been doing exercises. Notes she was sore 3 days after last session PT-OP-F Manual Assessment Start: 05/23/20 17:56 Freq: Status: Active Protocol: Document 05/24/20 09:04 [facility] (Rec: 05/24/20 09:47 [facility] [id number]) Manual Assessments Joint Mobility Assessment Joint Mobility Assessment IR of femurs & ER of tibia B, R valgus rearfoot, turning out of RLE in standing PT-OP-G Mobility & Gait Start: 05/23/20 17:56 Freq: Status: Active Protocol: Document 05/24/20 09:04 [facility] (Rec: 05/24/20 09:47 [facility] [id number]) OP Gait Assessment Comments Gait Comments lat leaning B w/less wt shift to L, dec push off B PT-OP-J Posture/Palpation/Skin Start: 05/23/20 17:56 Freq: Status: Active Protocol: Document 06/14/20 09:51 [facility] (Rec: 06/14/20 10:37 [facility] [id number]) Posture Evaluation [facility] Postural Classification System Whitney Postural Classifications Posterior/Anterior Lumbar Protective Mechanism Left AP 1 Lumbar Protective Mechanism Right AP 1 Lumbar Protective Mechanism Left PA 1 Lumbar Protective Mechanism Right PA 1 PT-OP-K Range of Motion Start: 05/23/20 17:56 Freq: Status: Active Protocol: Document 05/24/20 09:04 [facility] (Rec: 05/24/20 09:47 [facility] [id number]) Lumbar Spine Range of Motion Lumbar Spine Active Degrees Flexion 30 Extension 2 Rotation Left 33 Rotation Right 13 Lateral Flexion Left 13 Lateral Flexion Right 16 Comments pain ext PT-OP-L Special Tests Start: 05/23/20 17:56 Freq: Status: Active Protocol: Document 05/24/20 09:04 [facility] (Rec: 05/24/20 09:47 [facility] [id number]) Special Tests Knee Special Tests Straight Leg Raise Comments about 70 deg B HS tightness PT-OP-M Strength Start: 05/23/20 17:56 Freq: Status: Active Protocol: Document 06/14/20 09:51 [facility] (Rec: 06/14/20 10:37 [facility] [id number]) Hip Strength Hip Manual Muscle Testing Right Flexion (L2) 4- Good- Extension (S1) 3+ Fair+ Abduction 4- Good- Adduction 4- Good- External Rotation 4 Good Internal Rotation 4- Good- Left Flexion (L2) 4- Good- Extension (S1) 3+ Fair+ Abduction 4 Good Adduction 3+ Fair+ External Rotation 4 Good Internal Rotation 4 Good Knee Strength Knee Manual Muscle Testing Right Flexion (S2) 4+ Good+ Extension (L3) 4+ Good+ Left Flexion (S2) 4+ Good+ Extension (L3) 4+ Good+ Ankle/Foot Strength Ankle and Foot Manual Muscle Testing Right Dorsiflexion (L4) 5 Normal Plantarflexion (S1) 5 Normal Left Dorsiflexion (L4) 5 Normal Plantarflexion (S1) 5 Normal Comments PF tested seated PT-OP-Q Treatments Start: 05/23/20 17:56 Freq: Status: Active Protocol: Document 07/18/20 08:18 [facility] (Rec: 07/18/20 09:02 [facility] [id number]) Gym Equipment Therapeutic Ball supine Ball Size/Color 65 cm Body Position Supine Reps/Duration 15 ea Comments 1. bridge 2. LTR B 3. knee flex/ext w/ core focus seated Ball Size/Color 65 cm Body Position seated Reps/Duration 15 ea Comments 1. bouncing 2. pelvic tilts 3. pelvic circles B 4. march B 5. knee ext B Therapeutic Exercises Standing Exercises wall posture Standing Exercise Name wall roll up with arm ext Side bilateral Reps/Minutes 1 min Manual Therapy Treatment Soft Tissue Mobilization lumbar Comments R QL & ES & lat over iliac crest in s/l w/post dep/ant elevation & supine L sup iliac crest w/LTR Joint Mobilizations hip Joint B Direction inf mobs Grade II PT-OP-T Assessment and Plan Start: 05/23/20 17:56 Freq: Status: Active Protocol: Document 07/18/20 08:18 [facility] (Rec: 07/18/20 09:02 [facility] [id number]) Physical Therapy Assessment Goals LEFS Impairment 45/80 Postal Mail Carrier Goal (LTG) Pt will improve to 60/80 to show improved functional ability. LTG Duration 07/24/20 ADLs Short Term Goal (STG) Pt will be able to don/doff shoes even with zippers or laces without difficulty or inc pain. STG Duration 07/04/20 Postal Mail Carrier Goal (LTG) Pt will be able to do sit<> stand without increased pain LTG Duration 07/24/20 strength Short Term Goal (STG) Pt will be indep with HEP. STG Duration 06/23/20 Postal Mail Carrier Goal (LTG) Pt will score 5/5 on LE strength and 3/5 on EFT, LPM to show improved stability in order to allow pt to have greater ease with transitional movements with less pain. LTG Duration 07/24/20 activities Short Term Goal (STG) Pt will be able to bike with grandkids without inc pain. STG Duration 07/09/20 Skilled Nursing Goal (LTG) Pt will be able to walk a mile with minimal difficulty and no more than 2 points inc in pain. LTG Duration 07/24/20 Assessment Summary Assessment Pt required cueing for posture and core activitation during ball exercises. She was able to to tolerate exercises without inc pain. Physical Therapy Plan Frequency and Duration Frequency of Treatment 2x/Week Duration of Treatment 2 months Plan of Care Start Date 05/24/20 Plan of Care End Date 07/24/20 Next Visit Focus/Plan Next Note Type Progress Note Next Visit Plan work on posture and core
--- NOTE | 2020-07-20 11:34 | PT.OTN ---
Current Diagnoses Bilateral primary osteoarthritis of knee (07/20/20) Spondylosis without myelopathy or radiculopathy, lumbar region (07/20/20) Difficulty in walking, not elsewhere classified (07/20/20) Abnormal posture (07/20/20) Weakness (07/20/20) Physical Therapy Treatment Note PT-OP-A Visit Information Start: 05/23/20 17:56 Freq: Status: Active Protocol: Document 07/20/20 10:36 [facility] (Rec: 07/20/20 11:34 [facility] [id number]) Out-Patient Physical Therapy Visit Information Visit Information Visit Type Treatment Note Visit Start Time 09:47 Visit Stop Time 10:30 Total Visit Minutes 43 Visit Number 8 Number of INTER FOLD ROLL CUTTER Visits 0 PT-OP-B Current Condition Start: 05/23/20 17:56 Freq: Status: Active Protocol: Document 05/24/20 09:04 [facility] (Rec: 05/24/20 09:47 [facility] [id number]) Current Condition History of Current Condition Onset Date chronic Current Complaints LBP & B knee pain History of Current Condition Pt reports LBP started decades ago fromf alling down the stairs. Pt reprots knee pain starting 10 years ago. She has a torn meniscus but that got better with PT. Now arthritis noted. Pt reports LB just locks and it takes her stopping mult times on her way to her car. PT reports getting B sciatica to her knees. Prior Treatments and Tests cortizone injections that helped knees Treatment Goals Patient/Caregiver Goals to get stronger so has a better rehab, be able to bike w/grandkids, be able to go walking Personal Factors Other Personal Factors That May Effect appendectomy, ovarian cyst Therapy/Recovery removed, back pain, B knee pain, oopherectomy, bladder sling PT-OP-C Subjective Start: 05/23/20 17:56 Freq: Status: Active Protocol: Document 07/20/20 10:36 [facility] (Rec: 07/20/20 11:34 [facility] [id number]) OP-PT Subjective Patient Comments Patient Comments Pt reprots she felt good after last session. She walked 1.5 hours. Notes she did do exercises at home and they went well. 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 PT-OP-F Manual Assessment Start: 05/23/20 17:56 Freq: Status: Active Protocol: Document 05/24/20 09:04 [facility] (Rec: 05/24/20 09:47 [facility] [id number]) Manual Assessments Joint Mobility Assessment Joint Mobility Assessment IR of femurs & ER of tibia B, R valgus rearfoot, turning out of RLE in standing PT-OP-G Mobility & Gait Start: 05/23/20 17:56 Freq: Status: Active Protocol: Document 05/24/20 09:04 [facility] (Rec: 05/24/20 09:47 [facility] [id number]) OP Gait Assessment Comments Gait Comments lat leaning B w/less wt shift to L, dec push off B PT-OP-J Posture/Palpation/Skin Start: 05/23/20 17:56 Freq: Status: Active Protocol: Document 06/14/20 09:51 [facility] (Rec: 06/14/20 10:37 [facility] [id number]) Posture Evaluation Whitney Postural Classification System Whitney Postural Classifications Posterior/Anterior Lumbar Protective Mechanism Left AP 1 Lumbar Protective Mechanism Right AP 1 Lumbar Protective Mechanism Left PA 1 Lumbar Protective Mechanism Right PA 1 PT-OP-K Range of Motion Start: 05/23/20 17:56 Freq: Status: Active Protocol: Document 05/24/20 09:04 [facility] (Rec: 05/24/20 09:47 [facility] [id number]) Lumbar Spine Range of Motion Lumbar Spine Active Degrees Flexion 30 Extension 2 Rotation Left 33 Rotation Right 13 Lateral Flexion Left 13 Lateral Flexion Right 16 Comments pain ext PT-OP-L Special Tests Start: 05/23/20 17:56 Freq: Status: Active Protocol: Document 05/24/20 09:04 [facility] (Rec: 05/24/20 09:47 [facility] [id number]) Special Tests Knee Special Tests Straight Leg Raise Comments about 70 deg B HS tightness PT-OP-M Strength Start: 05/23/20 17:56 Freq: Status: Active Protocol: Document 06/14/20 09:51 [facility] (Rec: 06/14/20 10:37 [facility] [id number]) Hip Strength Hip Manual Muscle Testing Right Flexion (L2) 4- Good- Extension (S1) 3+ Fair+ Abduction 4- Good- Adduction 4- Good- External Rotation 4 Good Internal Rotation 4- Good- Left Flexion (L2) 4- Good- Extension (S1) 3+ Fair+ Abduction 4 Good Adduction 3+ Fair+ External Rotation 4 Good Internal Rotation 4 Good Knee Strength Knee Manual Muscle Testing Right Flexion (S2) 4+ Good+ Extension (L3) 4+ Good+ Left Flexion (S2) 4+ Good+ Extension (L3) 4+ Good+ Ankle/Foot Strength Ankle and Foot Manual Muscle Testing Right Dorsiflexion (L4) 5 Normal Plantarflexion (S1) 5 Normal Left Dorsiflexion (L4) 5 Normal Plantarflexion (S1) 5 Normal Comments PF tested seated PT-OP-Q Treatments Start: 05/23/20 17:56 Freq: Status: Active Protocol: Document 07/20/20 10:36 [facility] (Rec: 07/20/20 11:34 [facility] [id number]) Gym Equipment Sport Cord side Cord/Resistance green Comments attempted R but stopped d/t pain back Cord/Resistance green Reps/Duration 10 fwd Exercise Details focus on fwd wt shift/push off in mirror Cord/Resistance green Reps/Duration 10 Gait Training Gait Activity wt shifts Description in mirror with focus for fwd movement then to step through B Manual Therapy Treatment Soft Tissue Mobilization glutes Body Location r Mobilization Type Rolling,Strumming,Sustained Pressure Intensity/Depth Moderate Body Position Sidelying adductors Body Location L Mobilization Type Rolling Intensity/Depth Moderate ITB Body Location B Mobilization Type Rolling Intensity/Depth Moderate Joint Mobilizations patellofemoral Joint L Direction sup, inf, med Body Position Hooklying hip Joint R Direction inf mobs Grade II PT-OP-T Assessment and Plan Start: 05/23/20 17:56 Freq: Status: Active Protocol: Document 07/20/20 10:36 [facility] (Rec: 07/20/20 11:34 [facility] [id number]) Physical Therapy Assessment Goals LEFS Impairment 45/80 Retirement Goal (LTG) Pt will improve to 60/80 to show improved functional ability. LTG Duration 07/24/20 ADLs Short Term Goal (STG) Pt will be able to don/doff shoes even with zippers or laces without difficulty or inc pain. STG Duration 07/04/20 Customer Expert Goal (LTG) Pt will be able to do sit<> stand without increased pain LTG Duration 07/24/20 strength Short Term Goal (STG) Pt will be indep with HEP. STG Duration 06/23/20 Retirement Goal (LTG) Pt will score 5/5 on LE strength and 3/5 on EFT, LPM to show improved stability in order to allow pt to have greater ease with transitional movements with less pain. LTG Duration 07/24/20 activities Short Term Goal (STG) Pt will be able to bike with grandkids without inc pain. STG Duration 07/09/20 Retirement Goal (LTG) Pt will be able to walk a mile with minimal difficulty and no more than 2 points inc in pain. LTG Duration 07/24/20 Assessment Summary Assessment Pt improved with abiliuyt to wt shift and amb with less lat trunk lean after education & work with wt shift. She did need mirror to help focus on this. Improed R hip ROM after manual treatment into flex with dec pain Physical Therapy Plan Frequency and Duration Frequency of Treatment 2x/Week Duration of Treatment 2 months Plan of Care Start Date 05/24/20 Plan of Care End Date 07/24/20 Next Visit Focus/Plan Next Note Type Progress Note Next Visit Plan work on posture and core
--- NOTE | 2020-07-24 12:18 | PT.OTN ---
Current Diagnoses Bilateral primary osteoarthritis of knee (07/24/20) Spondylosis without myelopathy or radiculopathy, lumbar region (07/24/20) Difficulty in walking, not elsewhere classified (07/24/20) Abnormal posture (07/24/20) Weakness (07/24/20) Physical Therapy Treatment Note PT-OP-A Visit Information Start: 05/23/20 17:56 Freq: Status: Active Protocol: Document 07/24/20 11:35 [facility] (Rec: 07/24/20 12:18 [facility] [id number]) Out-Patient Physical Therapy Visit Information Visit Information Visit Type Progress Note Visit Start Time 11:20 Visit Stop Time 12:00 Total Visit Minutes 40 Visit Number 9 Number of DATA GOVERNANCE ANALYST Visits 0 PT-OP-B Current Condition Start: 05/23/20 17:56 Freq: Status: Active Protocol: Document 05/24/20 09:04 [facility] (Rec: 05/24/20 09:47 [facility] [id number]) Current Condition History of Current Condition Onset Date chronic Current Complaints LBP & B knee pain History of Current Condition Pt reports LBP started decades ago fromf alling down the stairs. Pt reprots knee pain starting 10 years ago. She has a torn meniscus but that got better with PT. Now arthritis noted. Pt reports LB just locks and it takes her stopping mult times on her way to her car. PT reports getting B sciatica to her knees. Prior Treatments and Tests cortizone injections that helped knees Treatment Goals Patient/Caregiver Goals to get stronger so has a better rehab, be able to bike w/grandkids, be able to go walking Personal Factors Other Personal Factors That May Effect appendectomy, ovarian cyst Therapy/Recovery removed, back pain, B knee pain, oopherectomy, bladder sling PT-OP-C Subjective Start: 05/23/20 17:56 Freq: Status: Active Protocol: Document 07/24/20 11:35 [facility] (Rec: 07/24/20 12:18 [facility] [id number]) OP-PT Subjective Patient Comments Patient Comments Pt reports doing walks with family PT-OP-F Manual Assessment Start: 05/23/20 17:56 Freq: Status: Active Protocol: Document 05/24/20 09:04 [facility] (Rec: 05/24/20 09:47 [facility] [id number]) Manual Assessments Joint Mobility Assessment Joint Mobility Assessment IR of femurs & ER of tibia B, R valgus rearfoot, turning out of RLE in standing PT-OP-G Mobility & Gait Start: 05/23/20 17:56 Freq: Status: Active Protocol: Document 05/24/20 09:04 [facility] (Rec: 05/24/20 09:47 [facility] [id number]) OP Gait Assessment Comments Gait Comments lat leaning B w/less wt shift to L, dec push off B PT-OP-J Posture/Palpation/Skin Start: 05/23/20 17:56 Freq: Status: Active Protocol: Document 07/24/20 11:35 [facility] (Rec: 07/24/20 12:18 [facility] [id number]) Posture Evaluation Whitney Postural Classification System Whitney Postural Classifications Posterior/Anterior Lumbar Protective Mechanism Left AP 2 Lumbar Protective Mechanism Right AP 1 Lumbar Protective Mechanism Left PA 2 Lumbar Protective Mechanism Right PA 1 PT-OP-K Range of Motion Start: 05/23/20 17:56 Freq: Status: Active Protocol: Document 05/24/20 09:04 [facility] (Rec: 05/24/20 09:47 [facility] [id number]) Lumbar Spine Range of Motion Lumbar Spine Active Degrees Flexion 30 Extension 2 Rotation Left 33 Rotation Right 13 Lateral Flexion Left 13 Lateral Flexion Right 16 Comments pain ext PT-OP-L Special Tests Start: 05/23/20 17:56 Freq: Status: Active Protocol: Document 05/24/20 09:04 [facility] (Rec: 05/24/20 09:47 [facility] [id number]) Special Tests Knee Special Tests Straight Leg Raise Comments about 70 deg B HS tightness PT-OP-M Strength Start: 05/23/20 17:56 Freq: Status: Active Protocol: Document 07/24/20 11:35 [facility] (Rec: 07/24/20 12:18 [facility] [id number]) Hip Strength Hip Manual Muscle Testing Right Flexion (L2) 4 Good Extension (S1) 3+ Fair+ Abduction 4- Good- Adduction 4 Good External Rotation 4- Good- Internal Rotation 4+ Good+ Left Flexion (L2) 4- Good- Extension (S1) 3+ Fair+ Abduction 4 Good Adduction 4 Good External Rotation 4- Good- Internal Rotation 4+ Good+ Knee Strength Knee Manual Muscle Testing Right Flexion (S2) 5 Normal Extension (L3) 5 Normal Left Flexion (S2) 5 Normal Extension (L3) 5 Normal Ankle/Foot Strength Ankle and Foot Manual Muscle Testing Right Dorsiflexion (L4) 5 Normal Plantarflexion (S1) 5 Normal Left Dorsiflexion (L4) 5 Normal Plantarflexion (S1) 5 Normal Comments PF tested seated PT-OP-Q Treatments Start: 05/23/20 17:56 Freq: Status: Active Protocol: Document 07/24/20 11:35 [facility] (Rec: 07/24/20 12:18 [facility] [id number]) Gym Equipment Sport Cord back Cord/Resistance green Reps/Duration 10 fwd Exercise Details focus on fwd wt shift/push off in mirror Cord/Resistance green Reps/Duration 10 Gait Training Gait Activity wt shifts Description in mirror with focus for fwd movement then to step through B Manual Therapy Treatment Soft Tissue Mobilization lumbar Comments R QL & ES & lat over iliac crest in s/l w/post dep/ant elevation ITB Body Location R Mobilization Type Rolling Intensity/Depth Moderate Joint Mobilizations patellofemoral Joint B Direction sup, inf, med Body Position Supine PT-OP-T Assessment and Plan Start: 05/23/20 17:56 Freq: Status: Active Protocol: Document 07/24/20 11:35 [facility] (Rec: 07/24/20 12:18 [facility] [id number]) Physical Therapy Assessment Goals LEFS Impairment 45/80 Nursing Home Goal (LTG) Pt will improve to 60/80 to show improved functional ability. 1/4-n/t LTG Duration 09/21/20 ADLs Short Term Goal (STG) Pt will be able to don/doff shoes even with zippers or laces without difficulty or inc pain. 1/4-able to but does have some pain STG Duration 08/24/20 Senior Warehouse Clerk Goal (LTG) Pt will be able to do sit<> stand without increased pain 1/4-some pain, no catching LTG Duration 09/21/20 strength Short Term Goal (STG) Pt will be indep with HEP. STG Duration achieved Nursing Home Goal (LTG) Pt will score 5/5 on LE strength and 3/5 on EFT, LPM to show improved stability in order to allow pt to have greater ease with transitional movements with less pain. 1/4-improving LTG Duration 09/21/20 activities Short Term Goal (STG) Pt will be able to bike with grandkids without inc pain. 07/24-has not tried STG Duration 08/24/20 Nursing Home Goal (LTG) Pt will be able to walk a mile with minimal difficulty and no more than 2 points inc in pain. LTG Duration achieved Assessment Summary Assessment Pt is slowly improving with strength and mobility.She is able to adjust gait for better mechanics and she is imrpoving signficiantly. Pt would benefit from cont with PT to cont to work on stability, gait and mobility. Physical Therapy Plan Frequency and Duration Frequency of Treatment 2x/Week Duration of Treatment 2 months Plan of Care Start Date 07/24/20 Plan of Care End Date 09/21/20 Therapeutic Interventions Therapeutic Interventions Aquatic Therapy,Balance Training,Gait Training,Home Exercise Program,Joint Mobilizations,Manual Therapy, Neuromuscular Re-education, Patient/Caregiver Education, Self-Care/Home Management,Soft Tissue Mobilization,Taping, Therapeutic Activities, Therapeutic Exercises Modalities Cold Pack/Ice Massage,Electric Stimulation,Hot Packs, Infrared Therapy,Iontophoresis ,Traction- Mechanical, Ultrasound Next Visit Focus/Plan Next Note Type Treatment Note Next Visit Plan work on posture and core & gait mechanics
--- NOTE | 2020-07-24 12:18 | PT.OPPOC ---
Physical, Occupational & Speech Therapy At [facility] Current Diagnoses Bilateral primary osteoarthritis of knee (07/24/20) Spondylosis without myelopathy or radiculopathy, lumbar region (07/24/20) Difficulty in walking, not elsewhere classified (07/24/20) Abnormal posture (07/24/20) Weakness (07/24/20) Visit Care Team Role Provider Type SEDRICK Morejon Family Provider Non-Staff Primary Care Provider Specialty: Medical Address: [address] [place] [address], [phone] Email: Sergey Boss MD Attending Provider Non-Staff Referring Provider Specialty: Orthopedic Surgery Address: [address] [place] [address], [phone] Email: Plan Of Care PT-OP-T Assessment and Plan Start: 05/23/20 17:56 Freq: Status: Active Protocol: Document 07/24/20 11:35 [facility] (Rec: 07/24/20 12:18 [facility] [id number]) Physical Therapy Assessment Goals LEFS Impairment 45/80 [facility] Goal (LTG) Pt will improve to 60/80 to show improved functional ability. 1/4-n/t LTG Duration 09/21/20 ADLs Short Term Goal (STG) Pt will be able to don/doff shoes even with zippers or laces without difficulty or inc pain. 1/4-able to but does have some pain STG Duration 08/24/20 [facility] Goal (LTG) Pt will be able to do sit<> stand without increased pain 1/4-some pain, no catching LTG Duration 09/21/20 strength Short Term Goal (STG) Pt will be indep with HEP. STG Duration achieved Historical Records Administrator Goal (LTG) Pt will score 5/5 on LE strength and 3/5 on EFT, LPM to show improved stability in order to allow pt to have greater ease with transitional movements with less pain. 14-improving LTG Duration 09/21/20 activities Short Term Goal (STG) Pt will be able to bike with grandkids without inc pain. 07/24-has not tried STG Duration 08/24/20 [facility] Goal (LTG) Pt will be able to walk a mile with minimal difficulty and no more than 2 points inc in pain. LTG Duration achieved Assessment Summary Assessment Pt is slowly improving with strength and mobility.She is able to adjust gait for better mechanics and she is imrpoving signficiantly. Pt would benefit from cont with PT to cont to work on stability, gait and mobility. Physical Therapy Plan Frequency and Duration Frequency of Treatment 2x/Week Duration of Treatment 2 months Plan of Care Start Date 07/24/20 Plan of Care End Date 09/21/20 Therapeutic Interventions Therapeutic Interventions Aquatic Therapy,Balance Training,Gait Training,Home Exercise Program,Joint Mobilizations,Manual Therapy, Neuromuscular Re-education, Patient/Caregiver Education, Self-Care/Home Management,Soft Tissue Mobilization,Taping, Therapeutic Activities, Therapeutic Exercises Modalities Cold Pack/Ice Massage,Electric Stimulation,Hot Packs, Infrared Therapy,Iontophoresis ,Traction- Mechanical, Ultrasound Next Visit Focus/Plan Next Note Type Treatment Note Next Visit Plan work on posture and core & gait mechanics Plan of Care Dates Plan of Care Start Date 07/24/20 Plan of Care End Date 09/21/20 Electronically Signed by: Fernanda Novak, PT 07/24/20 [id number] Please Sign and Return: I have reviewed this Plan of Care and certify that the skilled therapy services above are required to meet the patient?s needs. Physician Signature Date Printed Name and Credentials Clinical Instructor Signature Printed Name and Credentials
--- NOTE | 2020-07-27 11:39 | PT-OP ANOTE ---
Pt called re: no show and given phone number to call back if she wants to reschedule.
--- NOTE | 2020-07-31 12:09 | PT.OTN ---
Current Diagnoses Bilateral primary osteoarthritis of knee (07/31/20) Spondylosis without myelopathy or radiculopathy, lumbar region (07/31/20) Difficulty in walking, not elsewhere classified (07/31/20) Abnormal posture (07/31/20) Weakness (07/31/20) Physical Therapy Treatment Note PT-OP-A Visit Information Start: 05/23/20 17:56 Freq: Status: Active Protocol: Document 07/31/20 12:05 [facility] (Rec: 07/31/20 12:08 [facility] [id number]) Out-Patient Physical Therapy Visit Information Visit Information Visit Type Treatment Note Visit Note 08/30 Visit Start Time 11:19 Visit Stop Time 12:00 Total Visit Minutes 41 Visit Number 10 Number of DINING SERVICE WORKER Visits 0 PT-OP-B Current Condition Start: 05/23/20 17:56 Freq: Status: Active Protocol: Document 05/24/20 09:04 [facility] (Rec: 05/24/20 09:47 [facility] [id number]) Current Condition History of Current Condition Onset Date chronic Current Complaints LBP & B knee pain History of Current Condition Pt reports LBP started decades ago fromf alling down the stairs. Pt reprots knee pain starting 10 years ago. She has a torn meniscus but that got better with PT. Now arthritis noted. Pt reports LB just locks and it takes her stopping mult times on her way to her car. PT reports getting B sciatica to her knees. Prior Treatments and Tests cortizone injections that helped knees Treatment Goals Patient/Caregiver Goals to get stronger so has a better rehab, be able to bike w/grandkids, be able to go walking Personal Factors Other Personal Factors That May Effect appendectomy, ovarian cyst Therapy/Recovery removed, back pain, B knee pain, oopherectomy, bladder sling PT-OP-C Subjective Start: 05/23/20 17:56 Freq: Status: Active Protocol: Document 07/31/20 12:05 [facility] (Rec: 07/31/20 12:08 [facility] [id number]) OP-PT Subjective Patient Comments Patient Comments Pt reprots knees are sore today. Has not done any long walks PT-OP-F Manual Assessment Start: 05/23/20 17:56 Freq: Status: Active Protocol: Document 05/24/20 09:04 [facility] (Rec: 05/24/20 09:47 [facility] [id number]) Manual Assessments Joint Mobility Assessment Joint Mobility Assessment IR of femurs & ER of tibia B, R valgus rearfoot, turning out of RLE in standing PT-OP-G Mobility & Gait Start: 05/23/20 17:56 Freq: Status: Active Protocol: Document 05/24/20 09:04 [facility] (Rec: 05/24/20 09:47 [facility] [id number]) OP Gait Assessment Comments Gait Comments lat leaning B w/less wt shift to L, dec push off B PT-OP-J Posture/Palpation/Skin Start: 05/23/20 17:56 Freq: Status: Active Protocol: Document 07/24/20 11:35 [facility] (Rec: 07/24/20 12:18 [facility] [id number]) Posture Evaluation [facility] Postural Classification System Whitney Postural Classifications Posterior/Anterior Lumbar Protective Mechanism Left AP 2 Lumbar Protective Mechanism Right AP 1 Lumbar Protective Mechanism Left PA 2 Lumbar Protective Mechanism Right PA 1 PT-OP-K Range of Motion Start: 05/23/20 17:56 Freq: Status: Active Protocol: Document 05/24/20 09:04 [facility] (Rec: 05/24/20 09:47 [facility] [id number]) Lumbar Spine Range of Motion Lumbar Spine Active Degrees Flexion 30 Extension 2 Rotation Left 33 Rotation Right 13 Lateral Flexion Left 13 Lateral Flexion Right 16 Comments pain ext PT-OP-L Special Tests Start: 05/23/20 17:56 Freq: Status: Active Protocol: Document 05/24/20 09:04 [facility] (Rec: 05/24/20 09:47 [facility] [id number]) Special Tests Knee Special Tests Straight Leg Raise Comments about 70 deg B HS tightness PT-OP-M Strength Start: 05/23/20 17:56 Freq: Status: Active Protocol: Document 07/24/20 11:35 [facility] (Rec: 07/24/20 12:18 [facility] [id number]) Hip Strength Hip Manual Muscle Testing Right Flexion (L2) 4 Good Extension (S1) 3+ Fair+ Abduction 4- Good- Adduction 4 Good External Rotation 4- Good- Internal Rotation 4+ Good+ Left Flexion (L2) 4- Good- Extension (S1) 3+ Fair+ Abduction 4 Good Adduction 4 Good External Rotation 4- Good- Internal Rotation 4+ Good+ Knee Strength Knee Manual Muscle Testing Right Flexion (S2) 5 Normal Extension (L3) 5 Normal Left Flexion (S2) 5 Normal Extension (L3) 5 Normal Ankle/Foot Strength Ankle and Foot Manual Muscle Testing Right Dorsiflexion (L4) 5 Normal Plantarflexion (S1) 5 Normal Left Dorsiflexion (L4) 5 Normal Plantarflexion (S1) 5 Normal Comments PF tested seated PT-OP-Q Treatments Start: 05/23/20 17:56 Freq: Status: Active Protocol: Document 07/31/20 12:05 [facility] (Rec: 07/31/20 12:08 [facility] [id number]) Gym Equipment Shuttle Balance red clips Reps/Duration fwd w/head turns Comments fwd & side: WBOS & NBOS Therapeutic Exercises Standing Exercises squat Standing Exercise Name w/tball at wall Side bilateral Reps/Minutes 2x10 side step Side bilateral Equipment Used yellow tband Reps/Minutes 20ftx2 Comments focus on no lat lean Manual Therapy Treatment Soft Tissue Mobilization glutes Body Location r inf Mobilization Type Rolling,Strumming,Sustained Pressure Intensity/Depth Moderate Body Position Hooklying Comments w/hip IR/ER in figure 4 adductors Body Location R Mobilization Type Rolling Intensity/Depth Moderate Comments w/hip IR/ER Joint Mobilizations hip Joint R Direction inf mobs Grade III PT-OP-T Assessment and Plan Start: 05/23/20 17:56 Freq: Status: Active Protocol: Document 07/31/20 12:05 [facility] (Rec: 07/31/20 12:08 [facility] [id number]) Physical Therapy Assessment Goals LEFS Impairment 45/80 Inside Sales Trainer Goal (LTG) Pt will improve to 60/80 to show improved functional ability. 1/4-n/t LTG Duration 09/21/20 ADLs Short Term Goal (STG) Pt will be able to don/doff shoes even with zippers or laces without difficulty or inc pain. 1/4-able to but does have some pain STG Duration 08/24/20 Inside Sales Trainer Goal (LTG) Pt will be able to do sit<> stand without increased pain 1/4-some pain, no catching LTG Duration 09/21/20 strength Short Term Goal (STG) Pt will be indep with HEP. STG Duration achieved Inside Sales Trainer Goal (LTG) Pt will score 5/5 on LE strength and 3/5 on EFT, LPM to show improved stability in order to allow pt to have greater ease with transitional movements with less pain. 07/24-improving LTG Duration 09/21/20 activities Short Term Goal (STG) Pt will be able to bike with grandkids without inc pain. 07/24-has not tried STG Duration 08/24/20 Inside Sales Trainer Goal (LTG) Pt will be able to walk a mile with minimal difficulty and no more than 2 points inc in pain. LTG Duration achieved Assessment Summary Assessment Improved ability to go into flex w/ER after manual treatment. Pt required ceuing during squats and side steps for form and posture. Good challenge by uneven surface on balance board cary side facing Physical Therapy Plan Frequency and Duration Frequency of Treatment 2x/Week Duration of Treatment 2 months Plan of Care Start Date 07/24/20 Plan of Care End Date 09/21/20 Next Visit Focus/Plan Next Note Type Treatment Note Next Visit Plan work on posture and core & gait mechanics
--- NOTE | 2020-08-03 12:58 | PT.OTN ---
Current Diagnoses Bilateral primary osteoarthritis of knee (08/03/20) Spondylosis without myelopathy or radiculopathy, lumbar region (08/03/20) Difficulty in walking, not elsewhere classified (08/03/20) Abnormal posture (08/03/20) Weakness (08/03/20) Physical Therapy Treatment Note PT-OP-A Visit Information Start: 05/23/20 17:56 Freq: Status: Active Protocol: Document 08/03/20 12:10 [facility] (Rec: 08/03/20 12:12 [facility] [id number]) Out-Patient Physical Therapy Visit Information Visit Information Visit Type Treatment Note Visit Note 09/27 Visit Start Time 11:15 Visit Stop Time 11:57 Total Visit Minutes 42 Visit Number 11 Number of SPECIAL DELIVERY MAIL CARRIER Visits 0 PT-OP-B Current Condition Start: 05/23/20 17:56 Freq: Status: Active Protocol: Document 05/24/20 09:04 [facility] (Rec: 05/24/20 09:47 [facility] [id number]) Current Condition History of Current Condition Onset Date chronic Current Complaints LBP & B knee pain History of Current Condition Pt reports LBP started decades ago fromf alling down the stairs. Pt reprots knee pain starting 10 years ago. She has a torn meniscus but that got better with PT. Now arthritis noted. Pt reports LB just locks and it takes her stopping mult times on her way to her car. PT reports getting B sciatica to her knees. Prior Treatments and Tests cortizone injections that helped knees Treatment Goals Patient/Caregiver Goals to get stronger so has a better rehab, be able to bike w/grandkids, be able to go walking Personal Factors Other Personal Factors That May Effect appendectomy, ovarian cyst Therapy/Recovery removed, back pain, B knee pain, oopherectomy, bladder sling PT-OP-C Subjective Start: 05/23/20 17:56 Freq: Status: Active Protocol: Document 07/31/20 12:05 [facility] (Rec: 07/31/20 12:08 [facility] [id number]) OP-PT Subjective Patient Comments Patient Comments Pt reprots knees are sore today. Has not done any long walks PT-OP-F Manual Assessment Start: 05/23/20 17:56 Freq: Status: Active Protocol: Document 05/24/20 09:04 [facility] (Rec: 05/24/20 09:47 [facility] [id number]) Manual Assessments Joint Mobility Assessment Joint Mobility Assessment IR of femurs & ER of tibia B, R valgus rearfoot, turning out of RLE in standing PT-OP-G Mobility & Gait Start: 05/23/20 17:56 Freq: Status: Active Protocol: Document 05/24/20 09:04 [facility] (Rec: 05/24/20 09:47 [facility] [id number]) OP Gait Assessment Comments Gait Comments lat leaning B w/less wt shift to L, dec push off B PT-OP-J Posture/Palpation/Skin Start: 05/23/20 17:56 Freq: Status: Active Protocol: Document 07/24/20 11:35 [facility] (Rec: 07/24/20 12:18 [facility] [id number]) Posture Evaluation [facility] Postural Classification System Whitney Postural Classifications Posterior/Anterior Lumbar Protective Mechanism Left AP 2 Lumbar Protective Mechanism Right AP 1 Lumbar Protective Mechanism Left PA 2 Lumbar Protective Mechanism Right PA 1 PT-OP-K Range of Motion Start: 05/23/20 17:56 Freq: Status: Active Protocol: Document 05/24/20 09:04 [facility] (Rec: 05/24/20 09:47 [facility] [id number]) Lumbar Spine Range of Motion Lumbar Spine Active Degrees Flexion 30 Extension 2 Rotation Left 33 Rotation Right 13 Lateral Flexion Left 13 Lateral Flexion Right 16 Comments pain ext PT-OP-L Special Tests Start: 05/23/20 17:56 Freq: Status: Active Protocol: Document 05/24/20 09:04 [facility] (Rec: 05/24/20 09:47 [facility] [id number]) Special Tests Knee Special Tests Straight Leg Raise Comments about 70 deg B HS tightness PT-OP-M Strength Start: 05/23/20 17:56 Freq: Status: Active Protocol: Document 07/24/20 11:35 [facility] (Rec: 07/24/20 12:18 [facility] [id number]) Hip Strength Hip Manual Muscle Testing Right Flexion (L2) 4 Good Extension (S1) 3+ Fair+ Abduction 4- Good- Adduction 4 Good External Rotation 4- Good- Internal Rotation 4+ Good+ Left Flexion (L2) 4- Good- Extension (S1) 3+ Fair+ Abduction 4 Good Adduction 4 Good External Rotation 4- Good- Internal Rotation 4+ Good+ Knee Strength Knee Manual Muscle Testing Right Flexion (S2) 5 Normal Extension (L3) 5 Normal Left Flexion (S2) 5 Normal Extension (L3) 5 Normal Ankle/Foot Strength Ankle and Foot Manual Muscle Testing Right Dorsiflexion (L4) 5 Normal Plantarflexion (S1) 5 Normal Left Dorsiflexion (L4) 5 Normal Plantarflexion (S1) 5 Normal Comments PF tested seated PT-OP-Q Treatments Start: 05/23/20 17:56 Freq: Status: Active Protocol: Document 08/03/20 12:10 [facility] (Rec: 08/03/20 12:12 [facility] [id number]) Therapeutic Exercises Supine Exercises n glide Supine Exercise Name sciatic Side right Reps/Minutes 10 Manual Therapy Treatment Soft Tissue Mobilization HS Body Location R HS & calf Mobilization Type Rolling Intensity/Depth Moderate Comments w/ leg on PT shoulder & pt doing APs glutes Body Location R lat and piriformis Mobilization Type Rolling,Strumming,Sustained Pressure Intensity/Depth Moderate Body Position Sidelying Comments w/APs & knee ext Joint Mobilizations patellofemoral Joint B Direction sup, inf, med Body Position Supine hip Joint R Direction inf mobs Grade III Self-Care/Home Management Treatment Education Other Education edu to ice/heat and/or use her cream to help with pain, attempt rolling out and n glides to help w/pain PT-OP-T Assessment and Plan Start: 05/23/20 17:56 Freq: Status: Active Protocol: Document 08/03/20 12:10 [facility] (Rec: 08/03/20 12:12 [facility] [id number]) Physical Therapy Assessment Goals LEFS Impairment 45/80 Master Printer Goal (LTG) Pt will improve to 60/80 to show improved functional ability. 1/4-n/t LTG Duration 09/21/20 ADLs Short Term Goal (STG) Pt will be able to don/doff shoes even with zippers or laces without difficulty or inc pain. 1/4-able to but does have some pain STG Duration 08/24/20 Intermediate Goal (LTG) Pt will be able to do sit<> stand without increased pain 1/4-some pain, no catching LTG Duration 09/21/20 strength Short Term Goal (STG) Pt will be indep with HEP. STG Duration achieved Master Printer Goal (LTG) Pt will score 5/5 on LE strength and 3/5 on EFT, LPM to show improved stability in order to allow pt to have greater ease with transitional movements with less pain. 07/24-improving LTG Duration 09/21/20 activities Short Term Goal (STG) Pt will be able to bike with grandkids without inc pain. 07/24-has not tried STG Duration 08/24/20 Intermediate Goal (LTG) Pt will be able to walk a mile with minimal difficulty and no more than 2 points inc in pain. LTG Duration achieved Assessment Summary Assessment Pt had neural tension & pain into back with about 45 deg hip flex in SLR posiiton today . This was improved to no neural tension after manual and just HS stretch feeling w/ equal to L side ROM. Physical Therapy Plan Frequency and Duration Frequency of Treatment 2x/Week Duration of Treatment 2 months Plan of Care Start Date 07/24/20 Plan of Care End Date 09/21/20 Next Visit Focus/Plan Next Note Type Treatment Note Next Visit Plan work on posture and core & gait mechanics
--- NOTE | 2020-08-07 12:05 | PT.OTN ---
Current Diagnoses Bilateral primary osteoarthritis of knee (08/07/20) Spondylosis without myelopathy or radiculopathy, lumbar region (08/07/20) Difficulty in walking, not elsewhere classified (08/07/20) Abnormal posture (08/07/20) Weakness (08/07/20) Physical Therapy Treatment Note PT-OP-A Visit Information Start: 05/23/20 17:56 Freq: Status: Active Protocol: Document 08/07/20 11:14 [facility] (Rec: 08/07/20 12:04 [facility] [id number]) Out-Patient Physical Therapy Visit Information Visit Information Visit Type Treatment Note Visit Note 10/28 Visit Start Time 11:15 Visit Number 12 Number of LIFE MANAGER Visits 0 PT-OP-B Current Condition Start: 05/23/20 17:56 Freq: Status: Active Protocol: Document 05/24/20 09:04 [facility] (Rec: 05/24/20 09:47 [facility] [id number]) Current Condition History of Current Condition Onset Date chronic Current Complaints LBP & B knee pain History of Current Condition Pt reports LBP started decades ago fromf alling down the stairs. Pt reprots knee pain starting 10 years ago. She has a torn meniscus but that got better with PT. Now arthritis noted. Pt reports LB just locks and it takes her stopping mult times on her way to her car. PT reports getting B sciatica to her knees. Prior Treatments and Tests cortizone injections that helped knees Treatment Goals Patient/Caregiver Goals to get stronger so has a better rehab, be able to bike w/grandkids, be able to go walking Personal Factors Other Personal Factors That May Effect appendectomy, ovarian cyst Therapy/Recovery removed, back pain, B knee pain, oopherectomy, bladder sling PT-OP-C Subjective Start: 05/23/20 17:56 Freq: Status: Active Protocol: Document 08/07/20 11:14 [facility] (Rec: 08/07/20 12:04 [facility] [id number]) OP-PT Subjective Patient Comments Patient Comments reports knees sore after yard work yesterday PT-OP-F Manual Assessment Start: 05/23/20 17:56 Freq: Status: Active Protocol: Document 05/24/20 09:04 [facility] (Rec: 05/24/20 09:47 [facility] [id number]) Manual Assessments Joint Mobility Assessment Joint Mobility Assessment IR of femurs & ER of tibia B, R valgus rearfoot, turning out of RLE in standing PT-OP-G Mobility & Gait Start: 05/23/20 17:56 Freq: Status: Active Protocol: Document 05/24/20 09:04 [facility] (Rec: 05/24/20 09:47 [facility] [id number]) OP Gait Assessment Comments Gait Comments lat leaning B w/less wt shift to L, dec push off B PT-OP-J Posture/Palpation/Skin Start: 05/23/20 17:56 Freq: Status: Active Protocol: Document 07/24/20 11:35 [facility] (Rec: 07/24/20 12:18 [facility] [id number]) Posture Evaluation [facility] Postural Classification System Whitney Postural Classifications Posterior/Anterior Lumbar Protective Mechanism Left AP 2 Lumbar Protective Mechanism Right AP 1 Lumbar Protective Mechanism Left PA 2 Lumbar Protective Mechanism Right PA 1 PT-OP-K Range of Motion Start: 05/23/20 17:56 Freq: Status: Active Protocol: Document 05/24/20 09:04 [facility] (Rec: 05/24/20 09:47 [facility] [id number]) Lumbar Spine Range of Motion Lumbar Spine Active Degrees Flexion 30 Extension 2 Rotation Left 33 Rotation Right 13 Lateral Flexion Left 13 Lateral Flexion Right 16 Comments pain ext PT-OP-L Special Tests Start: 05/23/20 17:56 Freq: Status: Active Protocol: Document 05/24/20 09:04 [facility] (Rec: 05/24/20 09:47 [facility] [id number]) Special Tests Knee Special Tests Straight Leg Raise Comments about 70 deg B HS tightness PT-OP-M Strength Start: 05/23/20 17:56 Freq: Status: Active Protocol: Document 07/24/20 11:35 [facility] (Rec: 07/24/20 12:18 [facility] [id number]) Hip Strength Hip Manual Muscle Testing Right Flexion (L2) 4 Good Extension (S1) 3+ Fair+ Abduction 4- Good- Adduction 4 Good External Rotation 4- Good- Internal Rotation 4+ Good+ Left Flexion (L2) 4- Good- Extension (S1) 3+ Fair+ Abduction 4 Good Adduction 4 Good External Rotation 4- Good- Internal Rotation 4+ Good+ Knee Strength Knee Manual Muscle Testing Right Flexion (S2) 5 Normal Extension (L3) 5 Normal Left Flexion (S2) 5 Normal Extension (L3) 5 Normal Ankle/Foot Strength Ankle and Foot Manual Muscle Testing Right Dorsiflexion (L4) 5 Normal Plantarflexion (S1) 5 Normal Left Dorsiflexion (L4) 5 Normal Plantarflexion (S1) 5 Normal Comments PF tested seated PT-OP-Q Treatments Start: 05/23/20 17:56 Freq: Status: Active Protocol: Document 08/07/20 11:14 [facility] (Rec: 08/07/20 12:04 [facility] [id number]) Gym Equipment Shuttle Balance red clips Comments fwd & side: WBOS & NBOS fwd :staggered stance B Sport Cord fwd Exercise Details focus on fwd wt shift/push off in mirror Cord/Resistance green Reps/Duration 12 Therapeutic Exercises Supine Exercises n glide Supine Exercise Name sciatic Side right Reps/Minutes 10 Comments w/ towel Standing Exercises hip hinge Standing Exercise Name w/yard stick & cueing Side bilateral Reps/Minutes 15 Manual Therapy Treatment Soft Tissue Mobilization HS Body Location R HS & calf Mobilization Type Rolling Intensity/Depth Moderate Comments w/ leg on PT shoulder & pt doing APs glutes Body Location R lat and piriformis Mobilization Type Rolling,Strumming,Sustained Pressure Intensity/Depth Moderate Body Position Prone Comments w/ER Joint Mobilizations innominate Joint R Direction caudal & ER FM sacrum Joint UPA R & caudal gliding FM hip Joint R Direction on axis ER FM PT-OP-T Assessment and Plan Start: 05/23/20 17:56 Freq: Status: Active Protocol: Document 08/07/20 11:14 [facility] (Rec: 08/07/20 12:04 [facility] [id number]) Physical Therapy Assessment Goals LEFS Impairment 45/80 Alf Goal (LTG) Pt will improve to 60/80 to show improved functional ability. 1/4-n/t LTG Duration 09/21/20 ADLs Short Term Goal (STG) Pt will be able to don/doff shoes even with zippers or laces without difficulty or inc pain. 1/4-able to but does have some pain STG Duration 08/24/20 Alf Goal (LTG) Pt will be able to do sit<> stand without increased pain 1/4-some pain, no catching LTG Duration 09/21/20 strength Short Term Goal (STG) Pt will be indep with HEP. STG Duration achieved Alf Goal (LTG) Pt will score 5/5 on LE strength and 3/5 on EFT, LPM to show improved stability in order to allow pt to have greater ease with transitional movements with less pain. 07/24-improving LTG Duration 09/21/20 activities Short Term Goal (STG) Pt will be able to bike with grandkids without inc pain. 07/24-has not tried STG Duration 08/24/20 Alf Goal (LTG) Pt will be able to walk a mile with minimal difficulty and no more than 2 points inc in pain. LTG Duration achieved Assessment Summary Assessment Pt had neutral tension aroudn 60 deg SLR today which improved again w/manual to HS stretch at about 70 deg after. Improving gait mechnaics with cueing & mirror use. Improved hip ER after manual treatment Physical Therapy Plan Frequency and Duration Frequency of Treatment 2x/Week Duration of Treatment 2 months Plan of Care Start Date 07/24/20 Plan of Care End Date 09/21/20 Next Visit Focus/Plan Next Note Type Treatment Note Next Visit Plan work on posture and core & gait mechanics, progress hip strength exercises & quad strength
--- NOTE | 2020-08-14 12:05 | PT.OTN ---
Current Diagnoses Bilateral primary osteoarthritis of knee (08/14/20) Spondylosis without myelopathy or radiculopathy, lumbar region (08/14/20) Difficulty in walking, not elsewhere classified (08/14/20) Abnormal posture (08/14/20) Weakness (08/14/20) Physical Therapy Treatment Note PT-OP-A Visit Information Start: 05/23/20 17:56 Freq: Status: Active Protocol: Document 08/14/20 11:18 [facility] (Rec: 08/14/20 12:05 [facility] [id number]) Out-Patient Physical Therapy Visit Information Visit Information Visit Type Treatment Note Visit Note 11/27 Visit Start Time 11:17 Visit Stop Time 12:15 Total Visit Minutes 58 Visit Number 13 Number of TELEVISION INSTALLER HELPER Visits 0 PT-OP-B Current Condition Start: 05/23/20 17:56 Freq: Status: Active Protocol: Document 05/24/20 09:04 [facility] (Rec: 05/24/20 09:47 [facility] [id number]) Current Condition History of Current Condition Onset Date chronic Current Complaints LBP & B knee pain History of Current Condition Pt reports LBP started decades ago fromf alling down the stairs. Pt reprots knee pain starting 10 years ago. She has a torn meniscus but that got better with PT. Now arthritis noted. Pt reports LB just locks and it takes her stopping mult times on her way to her car. PT reports getting B sciatica to her knees. Prior Treatments and Tests cortizone injections that helped knees Treatment Goals Patient/Caregiver Goals to get stronger so has a better rehab, be able to bike w/grandkids, be able to go walking Personal Factors Other Personal Factors That May Effect appendectomy, ovarian cyst Therapy/Recovery removed, back pain, B knee pain, oopherectomy, bladder sling PT-OP-C Subjective Start: 05/23/20 17:56 Freq: Status: Active Protocol: Document 08/14/20 11:18 [facility] (Rec: 08/14/20 12:05 [facility] [id number]) OP-PT Subjective Patient Comments Patient Comments Pt reports sorenss after last session. Notes mostly in R buttocks down into R knee. PT-OP-F Manual Assessment Start: 05/23/20 17:56 Freq: Status: Active Protocol: Document 05/24/20 09:04 [facility] (Rec: 05/24/20 09:47 [facility] [id number]) Manual Assessments Joint Mobility Assessment Joint Mobility Assessment IR of femurs & ER of tibia B, R valgus rearfoot, turning out of RLE in standing PT-OP-G Mobility & Gait Start: 05/23/20 17:56 Freq: Status: Active Protocol: Document 05/24/20 09:04 [facility] (Rec: 05/24/20 09:47 [facility] [id number]) OP Gait Assessment Comments Gait Comments lat leaning B w/less wt shift to L, dec push off B PT-OP-J Posture/Palpation/Skin Start: 05/23/20 17:56 Freq: Status: Active Protocol: Document 07/24/20 11:35 [facility] (Rec: 07/24/20 12:18 [facility] [id number]) Posture Evaluation Whitney Postural Classification System Whitney Postural Classifications Posterior/Anterior Lumbar Protective Mechanism Left AP 2 Lumbar Protective Mechanism Right AP 1 Lumbar Protective Mechanism Left PA 2 Lumbar Protective Mechanism Right PA 1 PT-OP-K Range of Motion Start: 05/23/20 17:56 Freq: Status: Active Protocol: Document 05/24/20 09:04 [facility] (Rec: 05/24/20 09:47 [facility] [id number]) Lumbar Spine Range of Motion Lumbar Spine Active Degrees Flexion 30 Extension 2 Rotation Left 33 Rotation Right 13 Lateral Flexion Left 13 Lateral Flexion Right 16 Comments pain ext PT-OP-L Special Tests Start: 05/23/20 17:56 Freq: Status: Active Protocol: Document 05/24/20 09:04 [facility] (Rec: 05/24/20 09:47 [facility] [id number]) Special Tests Knee Special Tests Straight Leg Raise Comments about 70 deg B HS tightness PT-OP-M Strength Start: 05/23/20 17:56 Freq: Status: Active Protocol: Document 07/24/20 11:35 [facility] (Rec: 07/24/20 12:18 [facility] [id number]) Hip Strength Hip Manual Muscle Testing Right Flexion (L2) 4 Good Extension (S1) 3+ Fair+ Abduction 4- Good- Adduction 4 Good External Rotation 4- Good- Internal Rotation 4+ Good+ Left Flexion (L2) 4- Good- Extension (S1) 3+ Fair+ Abduction 4 Good Adduction 4 Good External Rotation 4- Good- Internal Rotation 4+ Good+ Knee Strength Knee Manual Muscle Testing Right Flexion (S2) 5 Normal Extension (L3) 5 Normal Left Flexion (S2) 5 Normal Extension (L3) 5 Normal Ankle/Foot Strength Ankle and Foot Manual Muscle Testing Right Dorsiflexion (L4) 5 Normal Plantarflexion (S1) 5 Normal Left Dorsiflexion (L4) 5 Normal Plantarflexion (S1) 5 Normal Comments PF tested seated PT-OP-Q Treatments Start: 05/23/20 17:56 Freq: Status: Active Protocol: Document 08/14/20 11:18 [facility] (Rec: 08/14/20 12:05 [facility] [id number]) Therapeutic Exercises Standing Exercises step up Standing Exercise Name 4in Side bilateral Equipment Used rail Reps/Minutes 12 Comments focus on knee positoin squat Standing Exercise Name w/tball at wall Side bilateral Reps/Minutes 20 Comments focus on knee position Manual Therapy Treatment Soft Tissue Mobilization glutes Body Location R lat and piriformis Mobilization Type Rolling,Strumming,Sustained Pressure Intensity/Depth Moderate Body Position Prone Comments w/ER Joint Mobilizations innominate Joint R Direction caudal & ER FM sacrum Joint UPA R & caudal gliding FM hip Joint R Direction on axis ER FM Self-Care/Home Management Treatment Education Other Education edu of supportive shoes or walking and edu for laces and wider toe boxes and brands to consider PT-OP-R Modalities Start: 05/23/20 17:56 Freq: Status: Active Protocol: Document 08/14/20 11:18 [facility] (Rec: 08/14/20 12:05 [facility] [id number]) Hot Pack/Cold Pack Treatment Hot Pack Location lumbar and glutes Patient Position Prone Treatment Duration (minutes) 15 PT-OP-T Assessment and Plan Start: 05/23/20 17:56 Freq: Status: Active Protocol: Document 08/14/20 11:18 [facility] (Rec: 08/14/20 12:05 [facility] [id number]) Physical Therapy Assessment Goals LEFS Impairment 45/80 Drive In Waiter/Waitress Goal (LTG) Pt will improve to 60/80 to show improved functional ability. 07/24-n/t LTG Duration 09/21/20 ADLs Short Term Goal (STG) Pt will be able to don/doff shoes even with zippers or laces without difficulty or inc pain. 07/24-able to but does have some pain STG Duration 08/24/20 Drive In Waiter/Waitress Goal (LTG) Pt will be able to do sit<> stand without increased pain 07/24-some pain, no catching LTG Duration 09/21/20 strength Short Term Goal (STG) Pt will be indep with HEP. STG Duration achieved Drive In Waiter/Waitress Goal (LTG) Pt will score 5/5 on LE strength and 3/5 on EFT, LPM to show improved stability in order to allow pt to have greater ease with transitional movements with less pain. 07/24-improving LTG Duration 09/21/20 activities Short Term Goal (STG) Pt will be able to bike with grandkids without inc pain. 07/24-has not tried STG Duration 08/24/20 Care Home Goal (LTG) Pt will be able to walk a mile with minimal difficulty and no more than 2 points inc in pain. LTG Duration achieved Assessment Summary Assessment no inc knee pain with exercises with focus on appropriate knee position. Did reuquire cuieng during exercises. Improved ER after manual treatment
--- NOTE | 2020-08-17 12:12 | PT.OTN ---
Current Diagnoses Bilateral primary osteoarthritis of knee (08/17/20) Spondylosis without myelopathy or radiculopathy, lumbar region (08/17/20) Difficulty in walking, not elsewhere classified (08/17/20) Abnormal posture (08/17/20) Weakness (08/17/20) Physical Therapy Treatment Note PT-OP-A Visit Information Start: 05/23/20 17:56 Freq: Status: Active Protocol: Document 08/17/20 12:05 [facility] (Rec: 08/17/20 12:12 [facility] [id number]) Out-Patient Physical Therapy Visit Information Visit Information Visit Type Treatment Note Visit Note 12/28 Visit Start Time 11:23 Visit Stop Time 12:01 Total Visit Minutes 38 Visit Number 14 PT-OP-B Current Condition Start: 05/23/20 17:56 Freq: Status: Active Protocol: Document 05/24/20 09:04 [facility] (Rec: 05/24/20 09:47 [facility] [id number]) Current Condition History of Current Condition Onset Date chronic Current Complaints LBP & B knee pain History of Current Condition Pt reports LBP started decades ago fromf alling down the stairs. Pt reprots knee pain starting 10 years ago. She has a torn meniscus but that got better with PT. Now arthritis noted. Pt reports LB just locks and it takes her stopping mult times on her way to her car. PT reports getting B sciatica to her knees. Prior Treatments and Tests cortizone injections that helped knees Treatment Goals Patient/Caregiver Goals to get stronger so has a better rehab, be able to bike w/grandkids, be able to go walking Personal Factors Other Personal Factors That May Effect appendectomy, ovarian cyst Therapy/Recovery removed, back pain, B knee pain, oopherectomy, bladder sling PT-OP-C Subjective Start: 05/23/20 17:56 Freq: Status: Active Protocol: Document 08/17/20 12:05 [facility] (Rec: 08/17/20 12:12 [facility] [id number]) OP-PT Subjective Patient Comments Patient Comments Pt reports she has felt great since last session.She adjuste dher desk and car seat height and feels that helped PT-OP-F Manual Assessment Start: 05/23/20 17:56 Freq: Status: Active Protocol: Document 05/24/20 09:04 [facility] (Rec: 05/24/20 09:47 [facility] [id number]) Manual Assessments Joint Mobility Assessment Joint Mobility Assessment IR of femurs & ER of tibia B, R valgus rearfoot, turning out of RLE in standing PT-OP-G Mobility & Gait Start: 05/23/20 17:56 Freq: Status: Active Protocol: Document 05/24/20 09:04 [facility] (Rec: 05/24/20 09:47 [facility] [id number]) OP Gait Assessment Comments Gait Comments lat leaning B w/less wt shift to L, dec push off B PT-OP-J Posture/Palpation/Skin Start: 05/23/20 17:56 Freq: Status: Active Protocol: Document 07/24/20 11:35 [facility] (Rec: 07/24/20 12:18 [facility] [id number]) Posture Evaluation Whitney Postural Classification System Whitney Postural Classifications Posterior/Anterior Lumbar Protective Mechanism Left AP 2 Lumbar Protective Mechanism Right AP 1 Lumbar Protective Mechanism Left PA 2 Lumbar Protective Mechanism Right PA 1 PT-OP-K Range of Motion Start: 05/23/20 17:56 Freq: Status: Active Protocol: Document 05/24/20 09:04 [facility] (Rec: 05/24/20 09:47 [facility] [id number]) Lumbar Spine Range of Motion Lumbar Spine Active Degrees Flexion 30 Extension 2 Rotation Left 33 Rotation Right 13 Lateral Flexion Left 13 Lateral Flexion Right 16 Comments pain ext PT-OP-L Special Tests Start: 05/23/20 17:56 Freq: Status: Active Protocol: Document 05/24/20 09:04 [facility] (Rec: 05/24/20 09:47 [facility] [id number]) Special Tests Knee Special Tests Straight Leg Raise Comments about 70 deg B HS tightness PT-OP-M Strength Start: 05/23/20 17:56 Freq: Status: Active Protocol: Document 07/24/20 11:35 [facility] (Rec: 07/24/20 12:18 [facility] [id number]) Hip Strength Hip Manual Muscle Testing Right Flexion (L2) 4 Good Extension (S1) 3+ Fair+ Abduction 4- Good- Adduction 4 Good External Rotation 4- Good- Internal Rotation 4+ Good+ Left Flexion (L2) 4- Good- Extension (S1) 3+ Fair+ Abduction 4 Good Adduction 4 Good External Rotation 4- Good- Internal Rotation 4+ Good+ Knee Strength Knee Manual Muscle Testing Right Flexion (S2) 5 Normal Extension (L3) 5 Normal Left Flexion (S2) 5 Normal Extension (L3) 5 Normal Ankle/Foot Strength Ankle and Foot Manual Muscle Testing Right Dorsiflexion (L4) 5 Normal Plantarflexion (S1) 5 Normal Left Dorsiflexion (L4) 5 Normal Plantarflexion (S1) 5 Normal Comments PF tested seated PT-OP-Q Treatments Start: 05/23/20 17:56 Freq: Status: Active Protocol: Document 08/17/20 12:05 [facility] (Rec: 08/17/20 12:12 [facility] [id number]) Therapeutic Exercises Standing Exercises sit to stand Reps/Minutes 2x with hands 2x without step up Standing Exercise Name 5in w/alt march Side bilateral Equipment Used rail prn Reps/Minutes 12 Comments focus on knee positoin squat Standing Exercise Name w/tball at wall Side bilateral Reps/Minutes 20 Comments focus on knee position side step Side bilateral Equipment Used L3 Reps/Minutes 20ft Comments focus on no lat lean Manual Therapy Treatment Soft Tissue Mobilization HS Body Location R HS Mobilization Type Rolling Intensity/Depth Moderate Body Position Prone Comments w/knee flex/ext glutes Body Location R lat and piriformis Mobilization Type Rolling,Strumming,Sustained Pressure Intensity/Depth Moderate Body Position Prone Comments w/ER lumbar Comments R QL & ES & lat over iliac crest in prone Joint Mobilizations hip Joint R Direction on axis ER FM Neuro Re-Education Treatment Balance Activities blue foam Details EC & head turn trials Comments WBOS & NBOS PT-OP-R Modalities Start: 05/23/20 17:56 Freq: Status: Active Protocol: Document 08/14/20 11:18 [facility] (Rec: 08/14/20 12:05 [facility] [id number]) Hot Pack/Cold Pack Treatment Hot Pack Location lumbar and glutes Patient Position Prone Treatment Duration (minutes) 15 PT-OP-T Assessment and Plan Start: 05/23/20 17:56 Freq: Status: Active Protocol: Document 08/17/20 12:05 [facility] (Rec: 08/17/20 12:12 [facility] [id number]) Physical Therapy Assessment Goals LEFS Impairment 45/80 Longterm Goal (LTG) Pt will improve to 60/80 to show improved functional ability. 1/4-n/t LTG Duration 09/21/20 ADLs Short Term Goal (STG) Pt will be able to don/doff shoes even with zippers or laces without difficulty or inc pain. 07/24-able to but does have some pain STG Duration 08/24/20 Longterm Goal (LTG) Pt will be able to do sit<> stand without increased pain 07/24-some pain, no catching LTG Duration 09/21/20 strength Short Term Goal (STG) Pt will be indep with HEP. STG Duration achieved Heel Nail Rasper Goal (LTG) Pt will score 5/5 on LE strength and 3/5 on EFT, LPM to show improved stability in order to allow pt to have greater ease with transitional movements with less pain. 07/24-improving LTG Duration 09/21/20 activities Short Term Goal (STG) Pt will be able to bike with grandkids without inc pain. 07/24-has not tried STG Duration 08/24/20 Heel Nail Rasper Goal (LTG) Pt will be able to walk a mile with minimal difficulty and no more than 2 points inc in pain. LTG Duration achieved Assessment Summary Assessment Pt able to tolerate inc restistance w/sidestep and was able to do step ups with higher step & adding SLS september w/o inc pain. Did require cuieng duirng wall squat still . Pt reported feelling good after manual w/pt haivng inc hip ER Physical Therapy Plan Frequency and Duration Frequency of Treatment 2x/Week Duration of Treatment 2 months Plan of Care Start Date 07/24/20 Plan of Care End Date 09/21/20 Next Visit Focus/Plan Next Note Type Treatment Note Next Visit Plan cont to work on quad and glute strength & gentle balance progression
--- NOTE | 2020-08-29 17:55 | PT.OTN ---
Current Diagnoses Bilateral primary osteoarthritis of knee (08/29/20) Spondylosis without myelopathy or radiculopathy, lumbar region (08/29/20) Difficulty in walking, not elsewhere classified (08/29/20) Abnormal posture (08/29/20) Weakness (08/29/20) Physical Therapy Treatment Note PT-OP-A Visit Information Start: 05/23/20 17:56 Freq: Status: Active Protocol: Document 08/29/20 17:41 [facility] (Rec: 08/29/20 17:55 [facility] [id number]) Out-Patient Physical Therapy Visit Information Visit Information Visit Type Treatment Note Visit Note 01/27 Visit Start Time 16:50 Visit Stop Time 17:30 Total Visit Minutes 40 Visit Number 15 Number of WHIPPER BEATER Visits 0 PT-OP-B Current Condition Start: 05/23/20 17:56 Freq: Status: Active Protocol: Document 05/24/20 09:04 [facility] (Rec: 05/24/20 09:47 [facility] [id number]) Current Condition History of Current Condition Onset Date chronic Current Complaints LBP & B knee pain History of Current Condition Pt reports LBP started decades ago fromf alling down the stairs. Pt reprots knee pain starting 10 years ago. She has a torn meniscus but that got better with PT. Now arthritis noted. Pt reports LB just locks and it takes her stopping mult times on her way to her car. PT reports getting B sciatica to her knees. Prior Treatments and Tests cortizone injections that helped knees Treatment Goals Patient/Caregiver Goals to get stronger so has a better rehab, be able to bike w/grandkids, be able to go walking Personal Factors Other Personal Factors That May Effect appendectomy, ovarian cyst Therapy/Recovery removed, back pain, B knee pain, oopherectomy, bladder sling PT-OP-C Subjective Start: 05/23/20 17:56 Freq: Status: Active Protocol: Document 08/29/20 17:41 [facility] (Rec: 08/29/20 17:55 [facility] [id number]) OP-PT Subjective Patient Comments Patient Comments Pt reports doing her standing exercises frequently but none on ball or laying down. Is going to get an injection in her knees possibly. She sees the doctor friday PT-OP-F Manual Assessment Start: 05/23/20 17:56 Freq: Status: Active Protocol: Document 05/24/20 09:04 [facility] (Rec: 05/24/20 09:47 [facility] [id number]) Manual Assessments Joint Mobility Assessment Joint Mobility Assessment IR of femurs & ER of tibia B, R valgus rearfoot, turning out of RLE in standing PT-OP-G Mobility & Gait Start: 05/23/20 17:56 Freq: Status: Active Protocol: Document 05/24/20 09:04 [facility] (Rec: 05/24/20 09:47 [facility] [id number]) OP Gait Assessment Comments Gait Comments lat leaning B w/less wt shift to L, dec push off B PT-OP-J Posture/Palpation/Skin Start: 05/23/20 17:56 Freq: Status: Active Protocol: Document 07/24/20 11:35 [facility] (Rec: 07/24/20 12:18 [facility] [id number]) Posture Evaluation Whitney Postural Classification System Whitney Postural Classifications Posterior/Anterior Lumbar Protective Mechanism Left AP 2 Lumbar Protective Mechanism Right AP 1 Lumbar Protective Mechanism Left PA 2 Lumbar Protective Mechanism Right PA 1 PT-OP-K Range of Motion Start: 05/23/20 17:56 Freq: Status: Active Protocol: Document 05/24/20 09:04 [facility] (Rec: 05/24/20 09:47 [facility] [id number]) Lumbar Spine Range of Motion Lumbar Spine Active Degrees Flexion 30 Extension 2 Rotation Left 33 Rotation Right 13 Lateral Flexion Left 13 Lateral Flexion Right 16 Comments pain ext PT-OP-L Special Tests Start: 05/23/20 17:56 Freq: Status: Active Protocol: Document 05/24/20 09:04 [facility] (Rec: 05/24/20 09:47 [facility] [id number]) Special Tests Knee Special Tests Straight Leg Raise Comments about 70 deg B HS tightness PT-OP-M Strength Start: 05/23/20 17:56 Freq: Status: Active Protocol: Document 07/24/20 11:35 [facility] (Rec: 07/24/20 12:18 [facility] [id number]) Hip Strength Hip Manual Muscle Testing Right Flexion (L2) 4 Good Extension (S1) 3+ Fair+ Abduction 4- Good- Adduction 4 Good External Rotation 4- Good- Internal Rotation 4+ Good+ Left Flexion (L2) 4- Good- Extension (S1) 3+ Fair+ Abduction 4 Good Adduction 4 Good External Rotation 4- Good- Internal Rotation 4+ Good+ Knee Strength Knee Manual Muscle Testing Right Flexion (S2) 5 Normal Extension (L3) 5 Normal Left Flexion (S2) 5 Normal Extension (L3) 5 Normal Ankle/Foot Strength Ankle and Foot Manual Muscle Testing Right Dorsiflexion (L4) 5 Normal Plantarflexion (S1) 5 Normal Left Dorsiflexion (L4) 5 Normal Plantarflexion (S1) 5 Normal Comments PF tested seated PT-OP-Q Treatments Start: 05/23/20 17:56 Freq: Status: Active Protocol: Document 08/29/20 17:41 [facility] (Rec: 08/29/20 17:55 [facility] [id number]) Therapeutic Exercises Supine Exercises LTR Supine Exercise Name w/segmental control Side bilateral Reps/Minutes 6 flex Supine Exercise Name w/manual faciliation w/chop pattern Side right Reps/Minutes [id number] pelvic tilt Supine Exercise Name 1. w/september 2. w/scissor Side bilateral Reps/Minutes 1.6 2. 3x8 Comments breathing cues Standing Exercises step up Standing Exercise Name 8in w/alt march Side bilateral Equipment Used rail prn Reps/Minutes 10fwd B, 8 side up/over B Comments focus on knee positoin side step Standing Exercise Name in mini squat Side bilateral Equipment Used L3 Reps/Minutes 20ft Comments focus on no lat lean Manual Therapy Treatment Soft Tissue Mobilization glutes Body Location R lat and piriformis Mobilization Type Rolling,Strumming,Sustained Pressure Intensity/Depth Moderate Body Position Prone Comments w/ER ITB Body Location R Mobilization Type Rolling Intensity/Depth Moderate Comments w/ER in figure 4 Joint Mobilizations hip Joint R Direction inf glide Grade III PT-OP-R Modalities Start: 05/23/20 17:56 Freq: Status: Active Protocol: Document 08/14/20 11:18 [facility] (Rec: 08/14/20 12:05 [facility] [id number]) Hot Pack/Cold Pack Treatment Hot Pack Location lumbar and glutes Patient Position Prone Treatment Duration (minutes) 15 PT-OP-T Assessment and Plan Start: 05/23/20 17:56 Freq: Status: Active Protocol: Document 08/29/20 17:41 [facility] (Rec: 08/29/20 17:55 [facility] [id number]) Physical Therapy Assessment Goals LEFS Impairment 45/80 Custodial Goal (LTG) Pt will improve to 60/80 to show improved functional ability. 07/24-n/t LTG Duration 09/21/20 ADLs Short Term Goal (STG) Pt will be able to don/doff shoes even with zippers or laces without difficulty or inc pain. 07/24-able to but does have some pain STG Duration 08/24/20 Custodial Goal (LTG) Pt will be able to do sit<> stand without increased pain 07/24-some pain, no catching LTG Duration 09/21/20 strength Short Term Goal (STG) Pt will be indep with HEP. STG Duration achieved Web Marketing Specialist Goal (LTG) Pt will score 5/5 on LE strength and 3/5 on EFT, LPM to show improved stability in order to allow pt to have greater ease with transitional movements with less pain. 07/24-improving LTG Duration 09/21/20 activities Short Term Goal (STG) Pt will be able to bike with grandkids without inc pain. 07/24-has not tried STG Duration 08/24/20 Custodial Goal (LTG) Pt will be able to walk a mile with minimal difficulty and no more than 2 points inc in pain. LTG Duration achieved Assessment Summary Assessment Pt required cueing for breathing with all exercises. She is improving with tolerance with standing exercises but does require cuieng for squat form and back positioning. She had imrpoved figure 4 positon after manual treatment. Physical Therapy Plan Frequency and Duration Frequency of Treatment 2x/Week Duration of Treatment 2 months Plan of Care Start Date 07/24/20 Plan of Care End Date 09/21/20 Next Visit Focus/Plan Next Note Type Treatment Note Next Visit Plan cont to work on quad and glute strength & gentle balance progression
--- NOTE | 2020-08-31 10:49 | PT-OP ANOTE ---
Pt called and left message re: no show & next scheduled appt.
--- NOTE | 2020-09-18 12:09 | PT.OTN ---
Current Diagnoses Bilateral primary osteoarthritis of knee (09/18/20) Spondylosis without myelopathy or radiculopathy, lumbar region (09/18/20) Difficulty in walking, not elsewhere classified (09/18/20) Abnormal posture (09/18/20) Weakness (09/18/20) Physical Therapy Treatment Note PT-OP-A Visit Information Start: 05/23/20 17:56 Freq: Status: Active Protocol: Document 09/18/20 09:52 [facility] (Rec: 09/18/20 10:39 [facility] [id number]) Out-Patient Physical Therapy Visit Information Visit Information Visit Type Progress Note Visit Note 07/30 Visit Start Time 09:50 Visit Stop Time 10:28 Total Visit Minutes 38 Visit Number 16 Number of ADMITTING COORDINATOR Visits 0 PT-OP-B Current Condition Start: 05/23/20 17:56 Freq: Status: Active Protocol: Document 05/24/20 09:04 [facility] (Rec: 05/24/20 09:47 [facility] [id number]) Current Condition History of Current Condition Onset Date chronic Current Complaints LBP & B knee pain History of Current Condition Pt reports LBP started decades ago fromf alling down the stairs. Pt reprots knee pain starting 10 years ago. She has a torn meniscus but that got better with PT. Now arthritis noted. Pt reports LB just locks and it takes her stopping mult times on her way to her car. PT reports getting B sciatica to her knees. Prior Treatments and Tests cortizone injections that helped knees Treatment Goals Patient/Caregiver Goals to get stronger so has a better rehab, be able to bike w/grandkids, be able to go walking Personal Factors Other Personal Factors That May Effect appendectomy, ovarian cyst Therapy/Recovery removed, back pain, B knee pain, oopherectomy, bladder sling PT-OP-C Subjective Start: 05/23/20 17:56 Freq: Status: Active Protocol: Document 09/18/20 09:52 [facility] (Rec: 09/18/20 10:39 [facility] [id number]) OP-PT Subjective Patient Comments Patient Comments Pt got new merrils and felt way better when walking in them and had laess knee pain. PT-OP-F Manual Assessment Start: 05/23/20 17:56 Freq: Status: Active Protocol: Document 05/24/20 09:04 [facility] (Rec: 05/24/20 09:47 [facility] [id number]) Manual Assessments Joint Mobility Assessment Joint Mobility Assessment IR of femurs & ER of tibia B, R valgus rearfoot, turning out of RLE in standing PT-OP-G Mobility & Gait Start: 05/23/20 17:56 Freq: Status: Active Protocol: Document 05/24/20 09:04 [facility] (Rec: 05/24/20 09:47 [facility] [id number]) OP Gait Assessment Comments Gait Comments lat leaning B w/less wt shift to L, dec push off B PT-OP-J Posture/Palpation/Skin Start: 05/23/20 17:56 Freq: Status: Active Protocol: Document 09/18/20 09:52 [facility] (Rec: 09/18/20 10:39 [facility] [id number]) Posture Evaluation [facility] Postural Classification System Lumbar Protective Mechanism Left AP 3 Lumbar Protective Mechanism Right AP 2 Lumbar Protective Mechanism Left PA 3 Lumbar Protective Mechanism Right PA 2 PT-OP-K Range of Motion Start: 05/23/20 17:56 Freq: Status: Active Protocol: Document 05/24/20 09:04 [facility] (Rec: 05/24/20 09:47 [facility] [id number]) Lumbar Spine Range of Motion Lumbar Spine Active Degrees Flexion 30 Extension 2 Rotation Left 33 Rotation Right 13 Lateral Flexion Left 13 Lateral Flexion Right 16 Comments pain ext PT-OP-L Special Tests Start: 05/23/20 17:56 Freq: Status: Active Protocol: Document 05/24/20 09:04 [facility] (Rec: 05/24/20 09:47 [facility] [id number]) Special Tests Knee Special Tests Straight Leg Raise Comments about 70 deg B HS tightness PT-OP-M Strength Start: 05/23/20 17:56 Freq: Status: Active Protocol: Document 09/18/20 09:52 [facility] (Rec: 09/18/20 10:39 [facility] [id number]) Hip Strength Hip Manual Muscle Testing Right Flexion (L2) 4+ Good+ Extension (S1) 4 Good Abduction 4 Good Adduction 4+ Good+ External Rotation 4 Good Internal Rotation 5 Normal Left Flexion (L2) 4 Good Extension (S1) 4 Good Abduction 4 Good Adduction 4 Good External Rotation 4+ Good+ Internal Rotation 5 Normal Knee Strength Knee Manual Muscle Testing Right Flexion (S2) 5 Normal Extension (L3) 5 Normal Left Flexion (S2) 5 Normal Extension (L3) 5 Normal Ankle/Foot Strength Ankle and Foot Manual Muscle Testing Right Dorsiflexion (L4) 5 Normal Plantarflexion (S1) 5 Normal Inversion 5 Normal Eversion (S1) 5 Normal Comments inc difficulty w/heel raises Left Dorsiflexion (L4) 5 Normal Plantarflexion (S1) 5 Normal Inversion 5 Normal Eversion (S1) 5 Normal Comments PF tested standing PT-OP-Q Treatments Start: 05/23/20 17:56 Freq: Status: Active Protocol: Document 09/18/20 09:52 [facility] (Rec: 09/18/20 10:39 [facility] [id number]) Therapeutic Exercises Standing Exercises hip ext Side bilateral Equipment Used L3 Reps/Minutes 15 squat Standing Exercise Name w/tball at wall Side bilateral Reps/Minutes 20 Comments focus on knee position side step Side bilateral Equipment Used L3 Reps/Minutes 20ft Comments focus on no lat lean Manual Therapy Treatment Soft Tissue Mobilization calf Body Location R Mobilization Type Rolling Intensity/Depth Moderate Body Position Supine Joint Mobilizations patellofemoral Joint R Direction sup, inf, med Body Position Supine PT-OP-R Modalities Start: 05/23/20 17:56 Freq: Status: Active Protocol: Document 08/14/20 11:18 [facility] (Rec: 08/14/20 12:05 [facility] [id number]) Hot Pack/Cold Pack Treatment Hot Pack Location lumbar and glutes Patient Position Prone Treatment Duration (minutes) 15 PT-OP-T Assessment and Plan Start: 05/23/20 17:56 Freq: Status: Active Protocol: Document 09/18/20 09:52 [facility] (Rec: 09/18/20 10:39 [facility] [id number]) Physical Therapy Assessment Goals uneven Impairment SLS 4 w/hand son hips & able to stand errect Short Term Goal (STG) SLS 10 w/hand son hips & able to stand errect STG Duration 10/19/20 Longterm Goal (LTG) Pt will be able to hike on uneven trails for 2-3 miles without increased pain. LTG Duration 11/18/20 LEFS Impairment 45/80 Longterm Goal (LTG) Pt will improve to 60/80 to show improved functional ability. 07/24-n/t LTG Duration 11/18/20 ADLs Short Term Goal (STG) Pt will be able to don/doff shoes even with zippers or laces without difficulty or inc pain. 07/24-able to but does have some pain 09/18-occ pain on R STG Duration 10/19/20 Longterm Goal (LTG) Pt will be able to do sit<> stand without increased pain 07/24-some pain, no catching 09/18-not painful if careful LTG Duration 11/18/20 strength Short Term Goal (STG) Pt will be indep with HEP. STG Duration achieved Longterm Goal (LTG) Pt will score 5/5 on LE strength and 3/5 on EFT, LPM to show improved stability in order to allow pt to have greater ease with transitional movements with less pain. 07/24-improving 09/18-improving LTG Duration 11/18/20 activities Short Term Goal (STG) Pt will be able to bike with grandkids without inc pain. 07/24-has not tried STG Duration 10/19/20 Longterm Goal (LTG) Pt will be able to walk 1-2 mile with minimal difficulty and no more than 2 points inc in pain. LTG Duration 11/18/20 Assessment Summary Assessment Pt is making progress towards goals and is able to do more walking as she has now gotten the recommended type of shoes (running shoe w/support). She still has weak glutes which likely affects both her back and B knee pain, whcih pt was given HEP to work on this along with balance as seh wants to be able to go on uneven surfaces. Pt has not been seen since Aug 29 d/t work schedule & snow which is likely why pt has not show more progress. Pt would benefit from cont PT Physical Therapy Plan Frequency and Duration Frequency of Treatment 1-2x Duration of Treatment 2 months Plan of Care Start Date 09/18/20 Plan of Care End Date 11/18/20 Therapeutic Interventions Therapeutic Interventions Aquatic Therapy,Balance Training,Gait Training,Home Exercise Program,Joint Mobilizations,Manual Therapy, Neuromuscular Re-education, Patient/Caregiver Education, Self-Care/Home Management,Soft Tissue Mobilization,Taping, Therapeutic Activities, Therapeutic Exercises Modalities Cold Pack/Ice Massage,Electric Stimulation,Hot Packs, Infrared Therapy,Iontophoresis ,Traction- Mechanical, Ultrasound Next Visit Focus/Plan Next Note Type Treatment Note Next Visit Plan cont to work on quad and glute strength & gentle balance progression
--- NOTE | 2020-09-18 12:09 | PT.OPPOC ---
Physical, Occupational & Speech Therapy At [facility] Current Diagnoses Bilateral primary osteoarthritis of knee (09/18/20) Spondylosis without myelopathy or radiculopathy, lumbar region (09/18/20) Difficulty in walking, not elsewhere classified (09/18/20) Abnormal posture (09/18/20) Weakness (09/18/20) Visit Care Team Role Provider Type SEDRICK Morejon Family Provider Non-Staff Primary Care Provider Specialty: Medical Address: [address] [place] [address], [phone] Email: Sergey Boss MD Attending Provider Non-Staff Referring Provider Specialty: Orthopedic Surgery Address: [address] [place] [address], [phone] Email: Plan Of Care PT-OP-T Assessment and Plan Start: 05/23/20 17:56 Freq: Status: Active Protocol: Document 09/18/20 09:52 [facility] (Rec: 09/18/20 10:39 [facility] [id number]) Physical Therapy Assessment Goals uneven Impairment SLS 4 w/hand son hips & able to stand errect Short Term Goal (STG) SLS 10 w/hand son hips & able to stand errect STG Duration 10/19/20 Automatic Punch Press Operator Goal (LTG) Pt will be able to hike on uneven trails for 2-3 miles without increased pain. LTG Duration 11/18/20 LEFS Impairment 45/80 Custodial Goal (LTG) Pt will improve to 60/80 to show improved functional ability. 1/-n/t LTG Duration 11/18/20 ADLs Short Term Goal (STG) Pt will be able to don/doff shoes even with zippers or laces without difficulty or inc pain. 1/-able to but does have some pain 3-occ pain on R STG Duration 10/19/20 Automatic Punch Press Operator Goal (LTG) Pt will be able to do sit<> stand without increased pain /-some pain, no catching 09/18-not painful if careful LTG Duration 11/18/20 strength Short Term Goal (STG) Pt will be indep with HEP. STG Duration achieved Custodial Goal (LTG) Pt will score 5/5 on LE strength and 3/5 on EFT, LPM to show improved stability in order to allow pt to have greater ease with transitional movements with less pain. 07/24-improving 09/18-improving LTG Duration 11/18/20 activities Short Term Goal (STG) Pt will be able to bike with grandkids without inc pain. 07/24-has not tried STG Duration 10/19/20 Automatic Punch Press Operator Goal (LTG) Pt will be able to walk 1-2 mile with minimal difficulty and no more than 2 points inc in pain. LTG Duration 11/18/20 Assessment Summary Assessment Pt is making progress towards goals and is able to do more walking as she has now gotten the recommended type of shoes (running shoe w/support). She still has weak glutes which likely affects both her back and B knee pain, whcih pt was given HEP to work on this along with balance as seh wants to be able to go on uneven surfaces. Pt has not been seen since Aug 29 d/t work schedule & snow which is likely why pt has not show more progress. Pt would benefit from cont PT Physical Therapy Plan Frequency and Duration Frequency of Treatment 1-2x Duration of Treatment 2 months Plan of Care Start Date 09/18/20 Plan of Care End Date 11/18/20 Therapeutic Interventions Therapeutic Interventions Aquatic Therapy,Balance Training,Gait Training,Home Exercise Program,Joint Mobilizations,Manual Therapy, Neuromuscular Re-education, Patient/Caregiver Education, Self-Care/Home Management,Soft Tissue Mobilization,Taping, Therapeutic Activities, Therapeutic Exercises Modalities Cold Pack/Ice Massage,Electric Stimulation,Hot Packs, Infrared Therapy,Iontophoresis ,Traction- Mechanical, Ultrasound Next Visit Focus/Plan Next Note Type Treatment Note Next Visit Plan cont to work on quad and glute strength & gentle balance progression Plan of Care Dates Plan of Care Start Date 09/18/20 Plan of Care End Date 11/18/20 Electronically Signed by: Fernanda Novak, PT 09/18/20 [id number] Please Sign and Return: I have reviewed this Plan of Care and certify that the skilled therapy services above are required to meet the patient?s needs. Physician Signature Date Printed Name and Credentials Clinical Instructor Signature Printed Name and Credentials
--- NOTE | 2020-09-20 11:14 | PT.OTN ---
Current Diagnoses Bilateral primary osteoarthritis of knee (09/20/20) Spondylosis without myelopathy or radiculopathy, lumbar region (09/20/20) Difficulty in walking, not elsewhere classified (09/20/20) Abnormal posture (09/20/20) Weakness (09/20/20) Physical Therapy Treatment Note PT-OP-A Visit Information Start: 05/23/20 17:56 Freq: Status: Active Protocol: Document 09/20/20 10:31 [facility] (Rec: 09/20/20 11:14 [facility] [id number]) Out-Patient Physical Therapy Visit Information Visit Information Visit Type Treatment Note Visit Note 08/30 Visit Start Time 10:33 Visit Stop Time 11:12 Total Visit Minutes 39 Visit Number 17 Number of PROJECT CONSTRUCTION ASSISTANT MANAGER Visits 0 PT-OP-B Current Condition Start: 05/23/20 17:56 Freq: Status: Active Protocol: Document 05/24/20 09:04 [facility] (Rec: 05/24/20 09:47 [facility] [id number]) Current Condition History of Current Condition Onset Date chronic Current Complaints LBP & B knee pain History of Current Condition Pt reports LBP started decades ago fromf alling down the stairs. Pt reprots knee pain starting 10 years ago. She has a torn meniscus but that got better with PT. Now arthritis noted. Pt reports LB just locks and it takes her stopping mult times on her way to her car. PT reports getting B sciatica to her knees. Prior Treatments and Tests cortizone injections that helped knees Treatment Goals Patient/Caregiver Goals to get stronger so has a better rehab, be able to bike w/grandkids, be able to go walking Personal Factors Other Personal Factors That May Effect appendectomy, ovarian cyst Therapy/Recovery removed, back pain, B knee pain, oopherectomy, bladder sling PT-OP-C Subjective Start: 05/23/20 17:56 Freq: Status: Active Protocol: Document 09/20/20 10:31 [facility] (Rec: 09/20/20 11:14 [facility] [id number]) OP-PT Subjective Patient Comments Patient Comments Pt reports mom fell the other night and she had to help get her up PT-OP-F Manual Assessment Start: 05/23/20 17:56 Freq: Status: Active Protocol: Document 05/24/20 09:04 [facility] (Rec: 05/24/20 09:47 [facility] [id number]) Manual Assessments Joint Mobility Assessment Joint Mobility Assessment IR of femurs & ER of tibia B, R valgus rearfoot, turning out of RLE in standing PT-OP-G Mobility & Gait Start: 05/23/20 17:56 Freq: Status: Active Protocol: Document 05/24/20 09:04 [facility] (Rec: 05/24/20 09:47 [facility] [id number]) OP Gait Assessment Comments Gait Comments lat leaning B w/less wt shift to L, dec push off B PT-OP-J Posture/Palpation/Skin Start: 05/23/20 17:56 Freq: Status: Active Protocol: Document 09/18/20 09:52 [facility] (Rec: 09/18/20 10:39 [facility] [id number]) Posture Evaluation [facility] Postural Classification System Lumbar Protective Mechanism Left AP 3 Lumbar Protective Mechanism Right AP 2 Lumbar Protective Mechanism Left PA 3 Lumbar Protective Mechanism Right PA 2 PT-OP-K Range of Motion Start: 05/23/20 17:56 Freq: Status: Active Protocol: Document 05/24/20 09:04 [facility] (Rec: 05/24/20 09:47 [facility] [id number]) Lumbar Spine Range of Motion Lumbar Spine Active Degrees Flexion 30 Extension 2 Rotation Left 33 Rotation Right 13 Lateral Flexion Left 13 Lateral Flexion Right 16 Comments pain ext PT-OP-L Special Tests Start: 05/23/20 17:56 Freq: Status: Active Protocol: Document 05/24/20 09:04 [facility] (Rec: 05/24/20 09:47 [facility] [id number]) Special Tests Knee Special Tests Straight Leg Raise Comments about 70 deg B HS tightness PT-OP-M Strength Start: 05/23/20 17:56 Freq: Status: Active Protocol: Document 09/18/20 09:52 [facility] (Rec: 09/18/20 10:39 [facility] [id number]) Hip Strength Hip Manual Muscle Testing Right Flexion (L2) 4+ Good+ Extension (S1) 4 Good Abduction 4 Good Adduction 4+ Good+ External Rotation 4 Good Internal Rotation 5 Normal Left Flexion (L2) 4 Good Extension (S1) 4 Good Abduction 4 Good Adduction 4 Good External Rotation 4+ Good+ Internal Rotation 5 Normal Knee Strength Knee Manual Muscle Testing Right Flexion (S2) 5 Normal Extension (L3) 5 Normal Left Flexion (S2) 5 Normal Extension (L3) 5 Normal Ankle/Foot Strength Ankle and Foot Manual Muscle Testing Right Dorsiflexion (L4) 5 Normal Plantarflexion (S1) 5 Normal Inversion 5 Normal Eversion (S1) 5 Normal Comments inc difficulty w/heel raises Left Dorsiflexion (L4) 5 Normal Plantarflexion (S1) 5 Normal Inversion 5 Normal Eversion (S1) 5 Normal Comments PF tested standing PT-OP-Q Treatments Start: 05/23/20 17:56 Freq: Status: Active Protocol: Document 09/20/20 10:31 [facility] (Rec: 09/20/20 11:14 [facility] [id number]) Therapeutic Exercises Standing Exercises TKE Side bilateral Equipment Used L3 Reps/Minutes 20 hip ext Side bilateral Equipment Used L3 Reps/Minutes 15 squat Standing Exercise Name w/tball at wall Side bilateral Reps/Minutes 20 Comments focus on knee position side step Side bilateral Equipment Used L3 Reps/Minutes 15ft Comments focus on no lat lean stretch Standing Exercise Name calf on stairss Side bilateral Reps/Minutes 1o71uct Manual Therapy Treatment Soft Tissue Mobilization calf Body Location R Mobilization Type Rolling Intensity/Depth Moderate Body Position Supine Comments APs HS Body Location R HS Mobilization Type Rolling Intensity/Depth Moderate Body Position Supine Comments w/knee flex/ext Joint Mobilizations patellofemoral Joint R Direction sup, inf, med Body Position Supine Comments in flex position Neuro Re-Education Treatment Balance Activities tandem Details stance B SLS Details B in mirror blue foam Details EC Comments WBOS & NBOS & staggered stance PT-OP-R Modalities Start: 05/23/20 17:56 Freq: Status: Active Protocol: Document 08/14/20 11:18 [facility] (Rec: 08/14/20 12:05 [facility] [id number]) Hot Pack/Cold Pack Treatment Hot Pack Location lumbar and glutes Patient Position Prone Treatment Duration (minutes) 15 PT-OP-T Assessment and Plan Start: 05/23/20 17:56 Freq: Status: Active Protocol: Document 09/20/20 10:31 [facility] (Rec: 09/20/20 11:14 [facility] [id number]) Physical Therapy Assessment Goals uneven Impairment SLS 4 w/hand son hips & able to stand errect Short Term Goal (STG) SLS 10 w/hand son hips & able to stand errect STG Duration 10/19/20 Telegraph Lineman Goal (LTG) Pt will be able to hike on uneven trails for 2-3 miles without increased pain. LTG Duration 11/18/20 LEFS Impairment 45/80 Telegraph Lineman Goal (LTG) Pt will improve to 60/80 to show improved functional ability. 07/24-n/t LTG Duration 11/18/20 ADLs Short Term Goal (STG) Pt will be able to don/doff shoes even with zippers or laces without difficulty or inc pain. 07/24-able to but does have some pain 09/18-occ pain on R STG Duration 10/19/20 Custodial Goal (LTG) Pt will be able to do sit<> stand without increased pain 07/24-some pain, no catching 09/18-not painful if careful LTG Duration 11/18/20 strength Short Term Goal (STG) Pt will be indep with HEP. STG Duration achieved Custodial Goal (LTG) Pt will score 5/5 on LE strength and 3/5 on EFT, LPM to show improved stability in order to allow pt to have greater ease with transitional movements with less pain. 07/24-improving 09/18-improving LTG Duration 11/18/20 activities Short Term Goal (STG) Pt will be able to bike with grandkids without inc pain. 07/24-has not tried STG Duration 10/19/20 Custodial Goal (LTG) Pt will be able to walk 1-2 mile with minimal difficulty and no more than 2 points inc in pain. LTG Duration 11/18/20 Assessment Summary Assessment Pt had improved ability to extend R knee and flex with less pain after manual treatment and imrpoved calf flexibility on R. DId well with exercise performance and shown R calf stretch to help w /tightness Physical Therapy Plan Frequency and Duration Frequency of Treatment 1-2x Duration of Treatment 2 months Plan of Care Start Date 09/18/20 Plan of Care End Date 11/18/20 Next Visit Focus/Plan Next Note Type Treatment Note Next Visit Plan cont to work on quad and glute strength & gentle balance progression
--- NOTE | 2020-10-05 16:49 | PT.OTN ---
Current Diagnoses Bilateral primary osteoarthritis of knee (10/05/20) Spondylosis without myelopathy or radiculopathy, lumbar region (10/05/20) Difficulty in walking, not elsewhere classified (10/05/20) Abnormal posture (10/05/20) Weakness (10/05/20) Physical Therapy Treatment Note PT-OP-A Visit Information Start: 05/23/20 17:56 Freq: Status: Active Protocol: Document 10/05/20 16:14 [facility] (Rec: 10/05/20 16:49 [facility] [id number]) Out-Patient Physical Therapy Visit Information Visit Information Visit Type Treatment Note Visit Note 09/27 Visit Start Time 16:04 Visit Stop Time 16:44 Total Visit Minutes 40 Visit Number 18 Number of BEAN WEIGHER Visits 0 PT-OP-B Current Condition Start: 05/23/20 17:56 Freq: Status: Active Protocol: Document 05/24/20 09:04 [facility] (Rec: 05/24/20 09:47 [facility] [id number]) Current Condition History of Current Condition Onset Date chronic Current Complaints LBP & B knee pain History of Current Condition Pt reports LBP started decades ago fromf alling down the stairs. Pt reprots knee pain starting 10 years ago. She has a torn meniscus but that got better with PT. Now arthritis noted. Pt reports LB just locks and it takes her stopping mult times on her way to her car. PT reports getting B sciatica to her knees. Prior Treatments and Tests cortizone injections that helped knees Treatment Goals Patient/Caregiver Goals to get stronger so has a better rehab, be able to bike w/grandkids, be able to go walking Personal Factors Other Personal Factors That May Effect appendectomy, ovarian cyst Therapy/Recovery removed, back pain, B knee pain, oopherectomy, bladder sling PT-OP-C Subjective Start: 05/23/20 17:56 Freq: Status: Active Protocol: Document 10/05/20 16:14 [facility] (Rec: 10/05/20 16:49 [facility] [id number]) OP-PT Subjective Patient Comments Patient Comments Pt reports back is hurting from helping mom up a lot. PT-OP-F Manual Assessment Start: 05/23/20 17:56 Freq: Status: Active Protocol: Document 05/24/20 09:04 [facility] (Rec: 05/24/20 09:47 [facility] [id number]) Manual Assessments Joint Mobility Assessment Joint Mobility Assessment IR of femurs & ER of tibia B, R valgus rearfoot, turning out of RLE in standing PT-OP-G Mobility & Gait Start: 05/23/20 17:56 Freq: Status: Active Protocol: Document 05/24/20 09:04 [facility] (Rec: 05/24/20 09:47 [facility] [id number]) OP Gait Assessment Comments Gait Comments lat leaning B w/less wt shift to L, dec push off B PT-OP-J Posture/Palpation/Skin Start: 05/23/20 17:56 Freq: Status: Active Protocol: Document 09/18/20 09:52 [facility] (Rec: 09/18/20 10:39 [facility] [id number]) Posture Evaluation [facility] Postural Classification System Lumbar Protective Mechanism Left AP 3 Lumbar Protective Mechanism Right AP 2 Lumbar Protective Mechanism Left PA 3 Lumbar Protective Mechanism Right PA 2 PT-OP-K Range of Motion Start: 05/23/20 17:56 Freq: Status: Active Protocol: Document 05/24/20 09:04 [facility] (Rec: 05/24/20 09:47 [facility] [id number]) Lumbar Spine Range of Motion Lumbar Spine Active Degrees Flexion 30 Extension 2 Rotation Left 33 Rotation Right 13 Lateral Flexion Left 13 Lateral Flexion Right 16 Comments pain ext PT-OP-L Special Tests Start: 05/23/20 17:56 Freq: Status: Active Protocol: Document 05/24/20 09:04 [facility] (Rec: 05/24/20 09:47 [facility] [id number]) Special Tests Knee Special Tests Straight Leg Raise Comments about 70 deg B HS tightness PT-OP-M Strength Start: 05/23/20 17:56 Freq: Status: Active Protocol: Document 09/18/20 09:52 [facility] (Rec: 09/18/20 10:39 [facility] [id number]) Hip Strength Hip Manual Muscle Testing Right Flexion (L2) 4+ Good+ Extension (S1) 4 Good Abduction 4 Good Adduction 4+ Good+ External Rotation 4 Good Internal Rotation 5 Normal Left Flexion (L2) 4 Good Extension (S1) 4 Good Abduction 4 Good Adduction 4 Good External Rotation 4+ Good+ Internal Rotation 5 Normal Knee Strength Knee Manual Muscle Testing Right Flexion (S2) 5 Normal Extension (L3) 5 Normal Left Flexion (S2) 5 Normal Extension (L3) 5 Normal Ankle/Foot Strength Ankle and Foot Manual Muscle Testing Right Dorsiflexion (L4) 5 Normal Plantarflexion (S1) 5 Normal Inversion 5 Normal Eversion (S1) 5 Normal Comments inc difficulty w/heel raises Left Dorsiflexion (L4) 5 Normal Plantarflexion (S1) 5 Normal Inversion 5 Normal Eversion (S1) 5 Normal Comments PF tested standing PT-OP-Q Treatments Start: 05/23/20 17:56 Freq: Status: Active Protocol: Document 10/05/20 16:14 [facility] (Rec: 10/05/20 16:49 [facility] [id number]) Gym Equipment Sport Cord back Cord/Resistance red Reps/Duration 10 fwd Exercise Details focus on fwd wt shift/push off in mirror Cord/Resistance red Reps/Duration 12 Therapeutic Exercises Supine Exercises LTR Supine Exercise Name w/segmental control Side bilateral Reps/Minutes 6 flex Supine Exercise Name isometric single leg Side bilateral Reps/Minutes 30sec pelvic tilt Supine Exercise Name 1. tilt 2. w/march Side bilateral Reps/Minutes 10 ea Comments breathing cues Therapeutic Activity Therapeutic Activity sit to stand Comments 1. self sit to stand w/ facilitation of glutes through traciton & work on seated hip hinge for wt shift 2. Edu and working on how to help mom up for sit ot stand Manual Therapy Treatment Soft Tissue Mobilization lumbar Comments R QL & ES & lat over iliac crest in s/l w/ant eelvation/ post dep PT-OP-R Modalities Start: 05/23/20 17:56 Freq: Status: Active Protocol: Document 08/14/20 11:18 [facility] (Rec: 08/14/20 12:05 [facility] [id number]) Hot Pack/Cold Pack Treatment Hot Pack Location lumbar and glutes Patient Position Prone Treatment Duration (minutes) 15 PT-OP-T Assessment and Plan Start: 05/23/20 17:56 Freq: Status: Active Protocol: Document 10/05/20 16:14 [facility] (Rec: 10/05/20 16:49 [facility] [id number]) Physical Therapy Assessment Goals uneven Impairment SLS 4 w/hand son hips & able to stand errect Short Term Goal (STG) SLS 10 w/hand son hips & able to stand errect STG Duration 10/19/20 Indirect Sales Representative Goal (LTG) Pt will be able to hike on uneven trails for 2-3 miles without increased pain. LTG Duration 11/18/20 LEFS Impairment 45/80 [facility] Goal (LTG) Pt will improve to 60/80 to show improved functional ability. 07/24-n/t LTG Duration 11/18/20 ADLs Short Term Goal (STG) Pt will be able to don/doff shoes even with zippers or laces without difficulty or inc pain. 07/24-able to but does have some pain 09/18-occ pain on R STG Duration 10/19/20 Indirect Sales Representative Goal (LTG) Pt will be able to do sit<> stand without increased pain 07/24-some pain, no catching 09/18-not painful if careful LTG Duration 11/18/20 strength Short Term Goal (STG) Pt will be indep with HEP. STG Duration achieved [facility] Goal (LTG) Pt will score 5/5 on LE strength and 3/5 on EFT, LPM to show improved stability in order to allow pt to have greater ease with transitional movements with less pain. 07/24-improving 09/18-improving LTG Duration 11/18/20 activities Short Term Goal (STG) Pt will be able to bike with grandkids without inc pain. 07/24-has not tried STG Duration 10/19/20 [facility] Goal (LTG) Pt will be able to walk 1-2 mile with minimal difficulty and no more than 2 points inc in pain. LTG Duration 11/18/20 Assessment Summary Assessment Pt had imrpoved post dep and ant elevation motion after manual treatment. She required max cueing today for core exercises & facilitation. Improved form for assist w/ transfering mom & w/sit ot stand Physical Therapy Plan Frequency and Duration Frequency of Treatment 1-2x Duration of Treatment 2 months Plan of Care Start Date 09/18/20 Plan of Care End Date 11/18/20 Next Visit Focus/Plan Next Note Type Treatment Note Next Visit Plan cont to work on quad and glute strength & gentle balance progression
--- NOTE | 2020-10-09 17:42 | PT.OTN ---
Current Diagnoses Bilateral primary osteoarthritis of knee (10/09/20) Spondylosis without myelopathy or radiculopathy, lumbar region (10/09/20) Difficulty in walking, not elsewhere classified (10/09/20) Abnormal posture (10/09/20) Weakness (10/09/20) Physical Therapy Treatment Note PT-OP-A Visit Information Start: 05/23/20 17:56 Freq: Status: Active Protocol: Document 10/09/20 17:38 [facility] (Rec: 10/10/20 17:42 [facility] [id number]) Out-Patient Physical Therapy Visit Information Visit Information Visit Type Treatment Note Visit Note 10/28 Visit Start Time 16:05 Visit Stop Time 16:45 Total Visit Minutes 40 Visit Number 19 Number of CANE BURNER Visits 0 PT-OP-B Current Condition Start: 05/23/20 17:56 Freq: Status: Active Protocol: Document 05/24/20 09:04 [facility] (Rec: 05/24/20 09:47 [facility] [id number]) Current Condition History of Current Condition Onset Date chronic Current Complaints LBP & B knee pain History of Current Condition Pt reports LBP started decades ago fromf alling down the stairs. Pt reprots knee pain starting 10 years ago. She has a torn meniscus but that got better with PT. Now arthritis noted. Pt reports LB just locks and it takes her stopping mult times on her way to her car. PT reports getting B sciatica to her knees. Prior Treatments and Tests cortizone injections that helped knees Treatment Goals Patient/Caregiver Goals to get stronger so has a better rehab, be able to bike w/grandkids, be able to go walking Personal Factors Other Personal Factors That May Effect appendectomy, ovarian cyst Therapy/Recovery removed, back pain, B knee pain, oopherectomy, bladder sling PT-OP-C Subjective Start: 05/23/20 17:56 Freq: Status: Active Protocol: Document 10/09/20 17:38 [facility] (Rec: 10/10/20 17:42 [facility] [id number]) OP-PT Subjective Patient Comments Patient Comments Pt reports back has been hurting. She has been trying to thinka bout the things that were worked on last session PT-OP-F Manual Assessment Start: 05/23/20 17:56 Freq: Status: Active Protocol: Document 05/24/20 09:04 [facility] (Rec: 05/24/20 09:47 [facility] [id number]) Manual Assessments Joint Mobility Assessment Joint Mobility Assessment IR of femurs & ER of tibia B, R valgus rearfoot, turning out of RLE in standing PT-OP-G Mobility & Gait Start: 05/23/20 17:56 Freq: Status: Active Protocol: Document 05/24/20 09:04 [facility] (Rec: 05/24/20 09:47 [facility] [id number]) OP Gait Assessment Comments Gait Comments lat leaning B w/less wt shift to L, dec push off B PT-OP-J Posture/Palpation/Skin Start: 05/23/20 17:56 Freq: Status: Active Protocol: Document 09/18/20 09:52 [facility] (Rec: 09/18/20 10:39 [facility] [id number]) Posture Evaluation [facility] Postural Classification System Lumbar Protective Mechanism Left AP 3 Lumbar Protective Mechanism Right AP 2 Lumbar Protective Mechanism Left PA 3 Lumbar Protective Mechanism Right PA 2 PT-OP-K Range of Motion Start: 05/23/20 17:56 Freq: Status: Active Protocol: Document 05/24/20 09:04 [facility] (Rec: 05/24/20 09:47 [facility] [id number]) Lumbar Spine Range of Motion Lumbar Spine Active Degrees Flexion 30 Extension 2 Rotation Left 33 Rotation Right 13 Lateral Flexion Left 13 Lateral Flexion Right 16 Comments pain ext PT-OP-L Special Tests Start: 05/23/20 17:56 Freq: Status: Active Protocol: Document 05/24/20 09:04 [facility] (Rec: 05/24/20 09:47 [facility] [id number]) Special Tests Knee Special Tests Straight Leg Raise Comments about 70 deg B HS tightness PT-OP-M Strength Start: 05/23/20 17:56 Freq: Status: Active Protocol: Document 09/18/20 09:52 [facility] (Rec: 09/18/20 10:39 [facility] [id number]) Hip Strength Hip Manual Muscle Testing Right Flexion (L2) 4+ Good+ Extension (S1) 4 Good Abduction 4 Good Adduction 4+ Good+ External Rotation 4 Good Internal Rotation 5 Normal Left Flexion (L2) 4 Good Extension (S1) 4 Good Abduction 4 Good Adduction 4 Good External Rotation 4+ Good+ Internal Rotation 5 Normal Knee Strength Knee Manual Muscle Testing Right Flexion (S2) 5 Normal Extension (L3) 5 Normal Left Flexion (S2) 5 Normal Extension (L3) 5 Normal Ankle/Foot Strength Ankle and Foot Manual Muscle Testing Right Dorsiflexion (L4) 5 Normal Plantarflexion (S1) 5 Normal Inversion 5 Normal Eversion (S1) 5 Normal Comments inc difficulty w/heel raises Left Dorsiflexion (L4) 5 Normal Plantarflexion (S1) 5 Normal Inversion 5 Normal Eversion (S1) 5 Normal Comments PF tested standing PT-OP-Q Treatments Start: 05/23/20 17:56 Freq: Status: Active Protocol: Document 10/09/20 17:38 [facility] (Rec: 10/10/20 17:42 [facility] [id number]) Gym Equipment Sport Cord back Cord/Resistance red Reps/Duration 10 fwd Exercise Details focus on fwd wt shift/push off in mirror Cord/Resistance red Reps/Duration 12 Therapeutic Activity Therapeutic Activity posture Name in mirror focusing on neutral positioning Gait Training Gait Activity gait Comments 1. resisted gait w/dowel in hallway 3x50ft 2. gait in hallway working on push off 3. fwd lean to work on initiation of gait Manual Therapy Treatment Soft Tissue Mobilization glutes Body Location R lat Mobilization Type Rolling,Strumming,Sustained Pressure Intensity/Depth Moderate Body Position Prone lumbar Comments R QL & ES & lat over iliac crest in s/l w/ant eelvation/ post dep PT-OP-R Modalities Start: 05/23/20 17:56 Freq: Status: Active Protocol: Document 08/14/20 11:18 [facility] (Rec: 08/14/20 12:05 [facility] [id number]) Hot Pack/Cold Pack Treatment Hot Pack Location lumbar and glutes Patient Position Prone Treatment Duration (minutes) 15 PT-OP-T Assessment and Plan Start: 05/23/20 17:56 Freq: Status: Active Protocol: Document 10/09/20 17:38 [facility] (Rec: 10/10/20 17:42 [facility] [id number]) Physical Therapy Assessment Goals uneven Impairment SLS 4 w/hand son hips & able to stand errect Short Term Goal (STG) SLS 10 w/hand son hips & able to stand errect STG Duration 10/19/20 Correction Goal (LTG) Pt will be able to hike on uneven trails for 2-3 miles without increased pain. LTG Duration 11/18/20 LEFS Impairment 45/80 Correction Goal (LTG) Pt will improve to 60/80 to show improved functional ability. 07/24-n/t LTG Duration 11/18/20 ADLs Short Term Goal (STG) Pt will be able to don/doff shoes even with zippers or laces without difficulty or inc pain. 07/24-able to but does have some pain 09/18-occ pain on R STG Duration 10/19/20 Offshore Diver Goal (LTG) Pt will be able to do sit<> stand without increased pain 07/24-some pain, no catching 09/18-not painful if careful LTG Duration 11/18/20 strength Short Term Goal (STG) Pt will be indep with HEP. STG Duration achieved Correction Goal (LTG) Pt will score 5/5 on LE strength and 3/5 on EFT, LPM to show improved stability in order to allow pt to have greater ease with transitional movements with less pain. 07/24-improving 09/18-improving LTG Duration 11/18/20 activities Short Term Goal (STG) Pt will be able to bike with grandkids without inc pain. 07/24-has not tried STG Duration 10/19/20 Correction Goal (LTG) Pt will be able to walk 1-2 mile with minimal difficulty and no more than 2 points inc in pain. LTG Duration 11/18/20 Assessment Summary Assessment Pt improved gait mechanics with signficant facilitation and cueing. She requries max cueing for posutre to do chin tuckw /o back ext and working on no post shear of ribcage over pelvis w/gait. Physical Therapy Plan Frequency and Duration Frequency of Treatment 1-2x Duration of Treatment 2 months Plan of Care Start Date 09/18/20 Plan of Care End Date 11/18/20 Next Visit Focus/Plan Next Note Type Treatment Note Next Visit Plan cont to work on quad and glute strength & gentle balance progression
--- NOTE | 2020-10-16 13:47 | PT.OTN ---
Current Diagnoses Bilateral primary osteoarthritis of knee (10/16/20) Spondylosis without myelopathy or radiculopathy, lumbar region (10/16/20) Difficulty in walking, not elsewhere classified (10/16/20) Abnormal posture (10/16/20) Weakness (10/16/20) Physical Therapy Treatment Note PT-OP-A Visit Information Start: 05/23/20 17:56 Freq: Status: Active Protocol: Document 10/16/20 13:03 [facility] (Rec: 10/16/20 13:47 [facility] [id number]) Out-Patient Physical Therapy Visit Information Visit Information Visit Type Treatment Note Visit Note 11/27 Visit Start Time 13:03 Visit Stop Time 13:42 Total Visit Minutes 39 Visit Number 20 Number of DRAWING CHECKER Visits 0 PT-OP-B Current Condition Start: 05/23/20 17:56 Freq: Status: Active Protocol: Document 05/24/20 09:04 [facility] (Rec: 05/24/20 09:47 [facility] [id number]) Current Condition History of Current Condition Onset Date chronic Current Complaints LBP & B knee pain History of Current Condition Pt reports LBP started decades ago fromf alling down the stairs. Pt reprots knee pain starting 10 years ago. She has a torn meniscus but that got better with PT. Now arthritis noted. Pt reports LB just locks and it takes her stopping mult times on her way to her car. PT reports getting B sciatica to her knees. Prior Treatments and Tests cortizone injections that helped knees Treatment Goals Patient/Caregiver Goals to get stronger so has a better rehab, be able to bike w/grandkids, be able to go walking Personal Factors Other Personal Factors That May Effect appendectomy, ovarian cyst Therapy/Recovery removed, back pain, B knee pain, oopherectomy, bladder sling PT-OP-C Subjective Start: 05/23/20 17:56 Freq: Status: Active Protocol: Document 10/16/20 13:03 [facility] (Rec: 10/16/20 13:47 [facility] [id number]) OP-PT Subjective Patient Comments Patient Comments Pt reprots she was so sore after shots last week. Notes yestday was the best she has felt. PT-OP-F Manual Assessment Start: 05/23/20 17:56 Freq: Status: Active Protocol: Document 05/24/20 09:04 [facility] (Rec: 05/24/20 09:47 [facility] [id number]) Manual Assessments Joint Mobility Assessment Joint Mobility Assessment IR of femurs & ER of tibia B, R valgus rearfoot, turning out of RLE in standing PT-OP-G Mobility & Gait Start: 05/23/20 17:56 Freq: Status: Active Protocol: Document 05/24/20 09:04 [facility] (Rec: 05/24/20 09:47 [facility] [id number]) OP Gait Assessment Comments Gait Comments lat leaning B w/less wt shift to L, dec push off B PT-OP-J Posture/Palpation/Skin Start: 05/23/20 17:56 Freq: Status: Active Protocol: Document 09/18/20 09:52 [facility] (Rec: 09/18/20 10:39 [facility] [id number]) Posture Evaluation Whitney Postural Classification System Lumbar Protective Mechanism Left AP 3 Lumbar Protective Mechanism Right AP 2 Lumbar Protective Mechanism Left PA 3 Lumbar Protective Mechanism Right PA 2 PT-OP-K Range of Motion Start: 05/23/20 17:56 Freq: Status: Active Protocol: Document 05/24/20 09:04 [facility] (Rec: 05/24/20 09:47 [facility] [id number]) Lumbar Spine Range of Motion Lumbar Spine Active Degrees Flexion 30 Extension 2 Rotation Left 33 Rotation Right 13 Lateral Flexion Left 13 Lateral Flexion Right 16 Comments pain ext PT-OP-L Special Tests Start: 05/23/20 17:56 Freq: Status: Active Protocol: Document 05/24/20 09:04 [facility] (Rec: 05/24/20 09:47 [facility] [id number]) Special Tests Knee Special Tests Straight Leg Raise Comments about 70 deg B HS tightness PT-OP-M Strength Start: 05/23/20 17:56 Freq: Status: Active Protocol: Document 09/18/20 09:52 [facility] (Rec: 09/18/20 10:39 [facility] [id number]) Hip Strength Hip Manual Muscle Testing Right Flexion (L2) 4+ Good+ Extension (S1) 4 Good Abduction 4 Good Adduction 4+ Good+ External Rotation 4 Good Internal Rotation 5 Normal Left Flexion (L2) 4 Good Extension (S1) 4 Good Abduction 4 Good Adduction 4 Good External Rotation 4+ Good+ Internal Rotation 5 Normal Knee Strength Knee Manual Muscle Testing Right Flexion (S2) 5 Normal Extension (L3) 5 Normal Left Flexion (S2) 5 Normal Extension (L3) 5 Normal Ankle/Foot Strength Ankle and Foot Manual Muscle Testing Right Dorsiflexion (L4) 5 Normal Plantarflexion (S1) 5 Normal Inversion 5 Normal Eversion (S1) 5 Normal Comments inc difficulty w/heel raises Left Dorsiflexion (L4) 5 Normal Plantarflexion (S1) 5 Normal Inversion 5 Normal Eversion (S1) 5 Normal Comments PF tested standing PT-OP-Q Treatments Start: 05/23/20 17:56 Freq: Status: Active Protocol: Document 10/16/20 13:03 [facility] (Rec: 10/16/20 13:47 [facility] [id number]) Cardio Equipment Recumbent Bicycle Duration (Minutes) 5 Resistance 4 Seat Position 4 Bicycle (Upright) Duration (Minutes) 3 Resistance 4 Other w/edu on how to set up home bike Therapeutic Exercises Standing Exercises wall posture Standing Exercise Name wall roll up with arm ext Side bilateral Reps/Minutes 6 roll ups focus on segmental roll up Therapeutic Activity Therapeutic Activity posture Comments 1.seated posture w/manual placement to self placement 2.standing posture w/manual placement to self placement Manual Therapy Treatment Soft Tissue Mobilization lumbar Comments R QL & ES & lat over iliac crest in s/l w/ant eelvation/ post dep PT-OP-R Modalities Start: 05/23/20 17:56 Freq: Status: Active Protocol: Document 08/14/20 11:18 [facility] (Rec: 08/14/20 12:05 [facility] [id number]) Hot Pack/Cold Pack Treatment Hot Pack Location lumbar and glutes Patient Position Prone Treatment Duration (minutes) 15 PT-OP-T Assessment and Plan Start: 05/23/20 17:56 Freq: Status: Active Protocol: Document 10/16/20 13:03 [facility] (Rec: 10/16/20 13:47 [facility] [id number]) Physical Therapy Assessment Goals uneven Impairment SLS 4 w/hand son hips & able to stand errect Short Term Goal (STG) SLS 10 w/hand son hips & able to stand errect STG Duration 10/19/20 Logistics Director Goal (LTG) Pt will be able to hike on uneven trails for 2-3 miles without increased pain. LTG Duration 11/18/20 LEFS Impairment 45/80 Logistics Director Goal (LTG) Pt will improve to 60/80 to show improved functional ability. 07/24-n/t LTG Duration 11/18/20 ADLs Short Term Goal (STG) Pt will be able to don/doff shoes even with zippers or laces without difficulty or inc pain. 07/24-able to but does have some pain 09/18-occ pain on R STG Duration 10/19/20 Long-Term Goal (LTG) Pt will be able to do sit<> stand without increased pain 07/24-some pain, no catching 09/18-not painful if careful LTG Duration 11/18/20 strength Short Term Goal (STG) Pt will be indep with HEP. STG Duration achieved Logistics Director Goal (LTG) Pt will score 5/5 on LE strength and 3/5 on EFT, LPM to show improved stability in order to allow pt to have greater ease with transitional movements with less pain. 07/24-improving 09/18-improving LTG Duration 11/18/20 activities Short Term Goal (STG) Pt will be able to bike with grandkids without inc pain. 07/24-has not tried STG Duration 10/19/20 Long-Term Goal (LTG) Pt will be able to walk 1-2 mile with minimal difficulty and no more than 2 points inc in pain. LTG Duration 11/18/20 Assessment Summary Assessment Pt did betterw ith postural position after cuieng and was able to self correct with mirror and self tactile cues. She was shown with EFT the imrpovement in strength in the better position Physical Therapy Plan Frequency and Duration Frequency of Treatment 1-2x Duration of Treatment 2 months Plan of Care Start Date 09/18/20 Plan of Care End Date 11/18/20 Next Visit Focus/Plan Next Note Type Treatment Note Next Visit Plan cont to work on quad and glute strength & gentle balance progression
--- NOTE | 2020-10-25 12:11 | PT.OTN ---
Current Diagnoses Bilateral primary osteoarthritis of knee (10/25/20) Spondylosis without myelopathy or radiculopathy, lumbar region (10/25/20) Difficulty in walking, not elsewhere classified (10/25/20) Abnormal posture (10/25/20) Weakness (10/25/20) Physical Therapy Treatment Note PT-OP-A Visit Information Start: 05/23/20 17:56 Freq: Status: Active Protocol: Document 10/25/20 11:23 [facility] (Rec: 10/25/20 12:11 [facility] [id number]) Out-Patient Physical Therapy Visit Information Visit Information Visit Type Treatment Note Visit Note 12/28 Visit Start Time 11:20 Visit Stop Time 12:00 Total Visit Minutes 40 Visit Number 21 Number of SUPERVISOR POWDERED SUGAR Visits 0 PT-OP-B Current Condition Start: 05/23/20 17:56 Freq: Status: Active Protocol: Document 05/24/20 09:04 [facility] (Rec: 05/24/20 09:47 [facility] [id number]) Current Condition History of Current Condition Onset Date chronic Current Complaints LBP & B knee pain History of Current Condition Pt reports LBP started decades ago fromf alling down the stairs. Pt reprots knee pain starting 10 years ago. She has a torn meniscus but that got better with PT. Now arthritis noted. Pt reports LB just locks and it takes her stopping mult times on her way to her car. PT reports getting B sciatica to her knees. Prior Treatments and Tests cortizone injections that helped knees Treatment Goals Patient/Caregiver Goals to get stronger so has a better rehab, be able to bike w/grandkids, be able to go walking Personal Factors Other Personal Factors That May Effect appendectomy, ovarian cyst Therapy/Recovery removed, back pain, B knee pain, oopherectomy, bladder sling PT-OP-C Subjective Start: 05/23/20 17:56 Freq: Status: Active Protocol: Document 10/25/20 11:23 [facility] (Rec: 10/25/20 12:11 [facility] [id number]) OP-PT Subjective Patient Comments Patient Comments Pt reports back has felt trashed. Knees are better and more just achey vs very painful. pt has not been doing exercises PT-OP-F Manual Assessment Start: 05/23/20 17:56 Freq: Status: Active Protocol: Document 05/24/20 09:04 [facility] (Rec: 05/24/20 09:47 [facility] [id number]) Manual Assessments Joint Mobility Assessment Joint Mobility Assessment IR of femurs & ER of tibia B, R valgus rearfoot, turning out of RLE in standing PT-OP-G Mobility & Gait Start: 05/23/20 17:56 Freq: Status: Active Protocol: Document 05/24/20 09:04 [facility] (Rec: 05/24/20 09:47 [facility] [id number]) OP Gait Assessment Comments Gait Comments lat leaning B w/less wt shift to L, dec push off B PT-OP-J Posture/Palpation/Skin Start: 05/23/20 17:56 Freq: Status: Active Protocol: Document 09/18/20 09:52 [facility] (Rec: 09/18/20 10:39 [facility] [id number]) Posture Evaluation Whitney Postural Classification System Lumbar Protective Mechanism Left AP 3 Lumbar Protective Mechanism Right AP 2 Lumbar Protective Mechanism Left PA 3 Lumbar Protective Mechanism Right PA 2 PT-OP-K Range of Motion Start: 05/23/20 17:56 Freq: Status: Active Protocol: Document 05/24/20 09:04 [facility] (Rec: 05/24/20 09:47 [facility] [id number]) Lumbar Spine Range of Motion Lumbar Spine Active Degrees Flexion 30 Extension 2 Rotation Left 33 Rotation Right 13 Lateral Flexion Left 13 Lateral Flexion Right 16 Comments pain ext PT-OP-L Special Tests Start: 05/23/20 17:56 Freq: Status: Active Protocol: Document 05/24/20 09:04 [facility] (Rec: 05/24/20 09:47 [facility] [id number]) Special Tests Knee Special Tests Straight Leg Raise Comments about 70 deg B HS tightness PT-OP-M Strength Start: 05/23/20 17:56 Freq: Status: Active Protocol: Document 09/18/20 09:52 [facility] (Rec: 09/18/20 10:39 [facility] [id number]) Hip Strength Hip Manual Muscle Testing Right Flexion (L2) 4+ Good+ Extension (S1) 4 Good Abduction 4 Good Adduction 4+ Good+ External Rotation 4 Good Internal Rotation 5 Normal Left Flexion (L2) 4 Good Extension (S1) 4 Good Abduction 4 Good Adduction 4 Good External Rotation 4+ Good+ Internal Rotation 5 Normal Knee Strength Knee Manual Muscle Testing Right Flexion (S2) 5 Normal Extension (L3) 5 Normal Left Flexion (S2) 5 Normal Extension (L3) 5 Normal Ankle/Foot Strength Ankle and Foot Manual Muscle Testing Right Dorsiflexion (L4) 5 Normal Plantarflexion (S1) 5 Normal Inversion 5 Normal Eversion (S1) 5 Normal Comments inc difficulty w/heel raises Left Dorsiflexion (L4) 5 Normal Plantarflexion (S1) 5 Normal Inversion 5 Normal Eversion (S1) 5 Normal Comments PF tested standing PT-OP-Q Treatments Start: 05/23/20 17:56 Freq: Status: Active Protocol: Document 10/25/20 11:23 [facility] (Rec: 10/25/20 12:11 [facility] [id number]) Cardio Equipment Recumbent Bicycle Duration (Minutes) 5 Resistance 5 Seat Position 4 Therapeutic Exercises Supine Exercises diaphragmatic breathing Supine Exercise Name 10 breaths w/abdomenal focus then 3x wavy gravy exercise Standing Exercises hip ext Side bilateral Equipment Used L3 Reps/Minutes 15 Comments focus on posture side step Side bilateral Equipment Used L3 Reps/Minutes 15ft Comments focus on posture wall posture Standing Exercise Name wall roll up with arm ext Side bilateral Reps/Minutes 5 roll ups focus on segmental roll up Comments w/3 holds 45 sec Manual Therapy Treatment Soft Tissue Mobilization lumbar Comments B QL & ES & lat over iliac crest in s/l w/ant eelvation/ post dep & breathing Joint Mobilizations ribcage Joint depression w/c/r w/inhalation/ exhalation PT-OP-R Modalities Start: 05/23/20 17:56 Freq: Status: Active Protocol: Document 08/14/20 11:18 [facility] (Rec: 08/14/20 12:05 [facility] [id number]) Hot Pack/Cold Pack Treatment Hot Pack Location lumbar and glutes Patient Position Prone Treatment Duration (minutes) 15 PT-OP-T Assessment and Plan Start: 05/23/20 17:56 Freq: Status: Active Protocol: Document 10/25/20 11:23 [facility] (Rec: 10/25/20 12:11 [facility] [id number]) Physical Therapy Assessment Goals uneven Impairment SLS 4 w/hand son hips & able to stand errect Short Term Goal (STG) SLS 10 w/hand son hips & able to stand errect STG Duration 10/19/20 Halfway Goal (LTG) Pt will be able to hike on uneven trails for 2-3 miles without increased pain. LTG Duration 11/18/20 LEFS Impairment 45/80 Halfway Goal (LTG) Pt will improve to 60/80 to show improved functional ability. 07/24-n/t LTG Duration 11/18/20 ADLs Short Term Goal (STG) Pt will be able to don/doff shoes even with zippers or laces without difficulty or inc pain. 07/24-able to but does have some pain 09/18-occ pain on R STG Duration 10/19/20 Halfway Goal (LTG) Pt will be able to do sit<> stand without increased pain 07/24-some pain, no catching 09/18-not painful if careful LTG Duration 11/18/20 strength Short Term Goal (STG) Pt will be indep with HEP. STG Duration achieved Halfway Goal (LTG) Pt will score 5/5 on LE strength and 3/5 on EFT, LPM to show improved stability in order to allow pt to have greater ease with transitional movements with less pain. 07/24-improving 09/18-improving LTG Duration 11/18/20 activities Short Term Goal (STG) Pt will be able to bike with grandkids without inc pain. 07/24-has not tried STG Duration 10/19/20 Printed Circuit Board Layout Designer Goal (LTG) Pt will be able to walk 1-2 mile with minimal difficulty and no more than 2 points inc in pain. LTG Duration 11/18/20 Assessment Summary Assessment Pt required significant redirection for posture throughout session with all exercises. Initially max cewuing rquired for diaphragmatic breathing. She had relaxation of back w/ exercises & manual. Physical Therapy Plan Frequency and Duration Frequency of Treatment 1-2x week Duration of Treatment 2 months Plan of Care Start Date 09/18/20 Plan of Care End Date 11/18/20 Next Visit Focus/Plan Next Note Type Treatment Note Next Visit Plan cont to work on quad and glute strength & gentle balance progression
--- NOTE | 2020-10-30 16:58 | PT.OTN ---
Current Diagnoses Bilateral primary osteoarthritis of knee (10/30/20) Spondylosis without myelopathy or radiculopathy, lumbar region (10/30/20) Difficulty in walking, not elsewhere classified (10/30/20) Abnormal posture (10/30/20) Weakness (10/30/20) Physical Therapy Treatment Note PT-OP-A Visit Information Start: 05/23/20 17:56 Freq: Status: Active Protocol: Document 10/30/20 13:52 [facility] (Rec: 10/30/20 16:58 [facility] [id number]) Out-Patient Physical Therapy Visit Information Visit Information Visit Type Treatment Note Visit Note 01/27 Visit Start Time 13:48 Visit Stop Time 14:30 Total Visit Minutes 42 Visit Number 22 Number of PERINATAL COORDINATOR Visits 0 PT-OP-B Current Condition Start: 05/23/20 17:56 Freq: Status: Active Protocol: Document 05/24/20 09:04 [facility] (Rec: 05/24/20 09:47 [facility] [id number]) Current Condition History of Current Condition Onset Date chronic Current Complaints LBP & B knee pain History of Current Condition Pt reports LBP started decades ago fromf alling down the stairs. Pt reprots knee pain starting 10 years ago. She has a torn meniscus but that got better with PT. Now arthritis noted. Pt reports LB just locks and it takes her stopping mult times on her way to her car. PT reports getting B sciatica to her knees. Prior Treatments and Tests cortizone injections that helped knees Treatment Goals Patient/Caregiver Goals to get stronger so has a better rehab, be able to bike w/grandkids, be able to go walking Personal Factors Other Personal Factors That May Effect appendectomy, ovarian cyst Therapy/Recovery removed, back pain, B knee pain, oopherectomy, bladder sling PT-OP-C Subjective Start: 05/23/20 17:56 Freq: Status: Active Protocol: Document 10/30/20 13:52 [facility] (Rec: 10/30/20 16:58 [facility] [id number]) OP-PT Subjective Patient Comments Patient Comments Pt reports working on exericses. posture is difficult PT-OP-F Manual Assessment Start: 05/23/20 17:56 Freq: Status: Active Protocol: Document 05/24/20 09:04 [facility] (Rec: 05/24/20 09:47 [facility] [id number]) Manual Assessments Joint Mobility Assessment Joint Mobility Assessment IR of femurs & ER of tibia B, R valgus rearfoot, turning out of RLE in standing PT-OP-G Mobility & Gait Start: 05/23/20 17:56 Freq: Status: Active Protocol: Document 05/24/20 09:04 [facility] (Rec: 05/24/20 09:47 [facility] [id number]) OP Gait Assessment Comments Gait Comments lat leaning B w/less wt shift to L, dec push off B PT-OP-J Posture/Palpation/Skin Start: 05/23/20 17:56 Freq: Status: Active Protocol: Document 09/18/20 09:52 [facility] (Rec: 09/18/20 10:39 [facility] [id number]) Posture Evaluation Whitney Postural Classification System Lumbar Protective Mechanism Left AP 3 Lumbar Protective Mechanism Right AP 2 Lumbar Protective Mechanism Left PA 3 Lumbar Protective Mechanism Right PA 2 PT-OP-K Range of Motion Start: 05/23/20 17:56 Freq: Status: Active Protocol: Document 05/24/20 09:04 [facility] (Rec: 05/24/20 09:47 [facility] [id number]) Lumbar Spine Range of Motion Lumbar Spine Active Degrees Flexion 30 Extension 2 Rotation Left 33 Rotation Right 13 Lateral Flexion Left 13 Lateral Flexion Right 16 Comments pain ext PT-OP-L Special Tests Start: 05/23/20 17:56 Freq: Status: Active Protocol: Document 05/24/20 09:04 [facility] (Rec: 05/24/20 09:47 [facility] [id number]) Special Tests Knee Special Tests Straight Leg Raise Comments about 70 deg B HS tightness PT-OP-M Strength Start: 05/23/20 17:56 Freq: Status: Active Protocol: Document 09/18/20 09:52 [facility] (Rec: 09/18/20 10:39 [facility] [id number]) Hip Strength Hip Manual Muscle Testing Right Flexion (L2) 4+ Good+ Extension (S1) 4 Good Abduction 4 Good Adduction 4+ Good+ External Rotation 4 Good Internal Rotation 5 Normal Left Flexion (L2) 4 Good Extension (S1) 4 Good Abduction 4 Good Adduction 4 Good External Rotation 4+ Good+ Internal Rotation 5 Normal Knee Strength Knee Manual Muscle Testing Right Flexion (S2) 5 Normal Extension (L3) 5 Normal Left Flexion (S2) 5 Normal Extension (L3) 5 Normal Ankle/Foot Strength Ankle and Foot Manual Muscle Testing Right Dorsiflexion (L4) 5 Normal Plantarflexion (S1) 5 Normal Inversion 5 Normal Eversion (S1) 5 Normal Comments inc difficulty w/heel raises Left Dorsiflexion (L4) 5 Normal Plantarflexion (S1) 5 Normal Inversion 5 Normal Eversion (S1) 5 Normal Comments PF tested standing PT-OP-Q Treatments Start: 05/23/20 17:56 Freq: Status: Active Protocol: Document 10/30/20 13:52 [facility] (Rec: 10/30/20 16:58 [facility] [id number]) Gym Equipment Sport Cord fwd Comments 1.fwd wt shifts in mirror x10 2. fwd walkg x10 Therapeutic Exercises Supine Exercises diaphragmatic breathing Supine Exercise Name 4 breaths w/abdomenal focus then 3x wavy gravy exercise Standing Exercises hip ext Side bilateral Equipment Used L1 Reps/Minutes 15 Comments focus on posture side step Side bilateral Equipment Used L1 Reps/Minutes 20ft Comments focus on posture wall posture Standing Exercise Name wall roll up with arm ext Side bilateral Comments w/3 holds 45 sec Therapeutic Activity Therapeutic Activity posture Name standing posture Gait Training Gait Activity wt shifts Description in mirror with focus for fwd movement then to step through B Manual Therapy Treatment Soft Tissue Mobilization quads Comments MFR to ant knee & STM to pes anscerine Joint Mobilizations patellofemoral Joint R Direction sup, inf, med PT-OP-R Modalities Start: 05/23/20 17:56 Freq: Status: Active Protocol: Document 08/14/20 11:18 [facility] (Rec: 08/14/20 12:05 [facility] [id number]) Hot Pack/Cold Pack Treatment Hot Pack Location lumbar and glutes Patient Position Prone Treatment Duration (minutes) 15 PT-OP-T Assessment and Plan Start: 05/23/20 17:56 Freq: Status: Active Protocol: Document 10/30/20 13:52 [facility] (Rec: 10/30/20 16:58 [facility] [id number]) Physical Therapy Assessment Goals uneven Impairment SLS 4 w/hand son hips & able to stand errect Short Term Goal (STG) SLS 10 w/hand son hips & able to stand errect STG Duration 10/19/20 Laboratory Tech Goal (LTG) Pt will be able to hike on uneven trails for 2-3 miles without increased pain. LTG Duration 11/18/20 LEFS Impairment 45/80 Laboratory Tech Goal (LTG) Pt will improve to 60/80 to show improved functional ability. 07/24-n/t LTG Duration 11/18/20 ADLs Short Term Goal (STG) Pt will be able to don/doff shoes even with zippers or laces without difficulty or inc pain. 07/24-able to but does have some pain 09/18-occ pain on R STG Duration 10/19/20 Retirement Goal (LTG) Pt will be able to do sit<> stand without increased pain 07/24-some pain, no catching 09/18-not painful if careful LTG Duration 11/18/20 strength Short Term Goal (STG) Pt will be indep with HEP. STG Duration achieved Retirement Goal (LTG) Pt will score 5/5 on LE strength and 3/5 on EFT, LPM to show improved stability in order to allow pt to have greater ease with transitional movements with less pain. 07/24-improving 09/18-improving LTG Duration 11/18/20 activities Short Term Goal (STG) Pt will be able to bike with grandkids without inc pain. 07/24-has not tried STG Duration 10/19/20 Retirement Goal (LTG) Pt will be able to walk 1-2 mile with minimal difficulty and no more than 2 points inc in pain. LTG Duration 11/18/20 Assessment Summary Assessment Pt still equries cueing for posture thoguhout with exercises and when working on gait mechanics. She has a tendency to go into TL junction ext as she wt shifts fwd. pt did note no back pain when [facility] worked on it w/ neutral spinal posture. Physical Therapy Plan Frequency and Duration Frequency of Treatment 1-2x week Duration of Treatment 2 months Plan of Care Start Date 09/18/20 Plan of Care End Date 11/18/20 Next Visit Focus/Plan Next Note Type Treatment Note Next Visit Plan cont to work on quad and glute strength & gentle balance progression
--- NOTE | 2020-11-13 13:24 | PT.OTN ---
Current Diagnoses Bilateral primary osteoarthritis of knee (11/13/20) Spondylosis without myelopathy or radiculopathy, lumbar region (11/13/20) Difficulty in walking, not elsewhere classified (11/13/20) Abnormal posture (11/13/20) Weakness (11/13/20) Physical Therapy Treatment Note PT-OP-A Visit Information Start: 05/23/20 17:56 Freq: Status: Active Protocol: Document 11/13/20 11:19 [facility] (Rec: 11/13/20 12:11 [facility] [id number]) Out-Patient Physical Therapy Visit Information Visit Information Visit Type Progress Note Visit Note 07/30 Visit Start Time 11:20 Visit Stop Time 12:05 Total Visit Minutes 45 Visit Number 23 Number of RECREATIONAL LEADER Visits 0 PT-OP-B Current Condition Start: 05/23/20 17:56 Freq: Status: Active Protocol: Document 05/24/20 09:04 [facility] (Rec: 05/24/20 09:47 [facility] [id number]) Current Condition History of Current Condition Onset Date chronic Current Complaints LBP & B knee pain History of Current Condition Pt reports LBP started decades ago fromf alling down the stairs. Pt reprots knee pain starting 10 years ago. She has a torn meniscus but that got better with PT. Now arthritis noted. Pt reports LB just locks and it takes her stopping mult times on her way to her car. PT reports getting B sciatica to her knees. Prior Treatments and Tests cortizone injections that helped knees Treatment Goals Patient/Caregiver Goals to get stronger so has a better rehab, be able to bike w/grandkids, be able to go walking Personal Factors Other Personal Factors That May Effect appendectomy, ovarian cyst Therapy/Recovery removed, back pain, B knee pain, oopherectomy, bladder sling PT-OP-C Subjective Start: 05/23/20 17:56 Freq: Status: Active Protocol: Document 11/13/20 11:19 [facility] (Rec: 11/13/20 12:11 [facility] [id number]) OP-PT Subjective Patient Comments Patient Comments Pt reprots doing better getting up frm chairs. Notes a fall in her driveway the other day. Notes she had something her hands and her dogs leash and tripped. niece had to help her up. PT-OP-F Manual Assessment Start: 05/23/20 17:56 Freq: Status: Active Protocol: Document 05/24/20 09:04 [facility] (Rec: 05/24/20 09:47 [facility] [id number]) Manual Assessments Joint Mobility Assessment Joint Mobility Assessment IR of femurs & ER of tibia B, R valgus rearfoot, turning out of RLE in standing PT-OP-G Mobility & Gait Start: 05/23/20 17:56 Freq: Status: Active Protocol: Document 05/24/20 09:04 [facility] (Rec: 05/24/20 09:47 [facility] [id number]) OP Gait Assessment Comments Gait Comments lat leaning B w/less wt shift to L, dec push off B PT-OP-J Posture/Palpation/Skin Start: 05/23/20 17:56 Freq: Status: Active Protocol: Document 11/13/20 11:19 [facility] (Rec: 11/13/20 12:11 [facility] [id number]) Posture Evaluation Whitney Postural Classification System Vertebral Compression Test 3 Elbow Flexion Test 2 Lumbar Protective Mechanism Left AP 2 Lumbar Protective Mechanism Right AP 2 Lumbar Protective Mechanism Left PA 2 Lumbar Protective Mechanism Right PA 2 PT-OP-K Range of Motion Start: 05/23/20 17:56 Freq: Status: Active Protocol: Document 05/24/20 09:04 [facility] (Rec: 05/24/20 09:47 [facility] [id number]) Lumbar Spine Range of Motion Lumbar Spine Active Degrees Flexion 30 Extension 2 Rotation Left 33 Rotation Right 13 Lateral Flexion Left 13 Lateral Flexion Right 16 Comments pain ext PT-OP-L Special Tests Start: 05/23/20 17:56 Freq: Status: Active Protocol: Document 05/24/20 09:04 [facility] (Rec: 05/24/20 09:47 [facility] [id number]) Special Tests Knee Special Tests Straight Leg Raise Comments about 70 deg B HS tightness PT-OP-M Strength Start: 05/23/20 17:56 Freq: Status: Active Protocol: Document 11/13/20 11:19 [facility] (Rec: 11/13/20 12:11 [facility] [id number]) Hip Strength Hip Manual Muscle Testing Right Flexion (L2) 5 Normal Extension (S1) 4+ Good+ Abduction 4+ Good+ Adduction 4+ Good+ External Rotation 4+ Good+ Internal Rotation 5 Normal Left Flexion (L2) 5 Normal Extension (S1) 4+ Good+ Abduction 4+ Good+ Adduction 4+ Good+ External Rotation 4+ Good+ Internal Rotation 5 Normal Knee Strength Knee Manual Muscle Testing Right Flexion (S2) 5 Normal Extension (L3) 5 Normal Left Flexion (S2) 5 Normal Extension (L3) 5 Normal Ankle/Foot Strength Ankle and Foot Manual Muscle Testing Right Dorsiflexion (L4) 5 Normal Plantarflexion (S1) 5 Normal Inversion 5 Normal Eversion (S1) 5 Normal Left Dorsiflexion (L4) 5 Normal Plantarflexion (S1) 5 Normal Inversion 5 Normal Eversion (S1) 5 Normal Comments PF tested standing PT-OP-Q Treatments Start: 05/23/20 17:56 Freq: Status: Active Protocol: Document 11/13/20 11:19 [facility] (Rec: 11/13/20 13:24 [facility] [id number]) Manual Therapy Treatment Soft Tissue Mobilization lumbar Body Location B QL & ES Mobilization Type Rolling Intensity/Depth Moderate Body Position Sidelying Neuro Re-Education Treatment Balance Activities Hurdles Details over 6 Reps/Duration fwd x8 Comments reciprocal w/slow contorlled motion & quiet decent SLS Comments 1. trials B 2. ball rolls B CW/CWW 3. toe taps to 16 in step x12 B blue foam Details EC trials Comments WBOS & NBOS & staggered stance Self-Care/Home Management Treatment Education Other Education discussed starting no more than 1 mile hikes on easier terrain like [facility] region with a pole and w/niece or other technical services librarian. Work on less hilly/less rooty/brina terrain first, review of importance of posture PT-OP-R Modalities Start: 05/23/20 17:56 Freq: Status: Active Protocol: Document 08/14/20 11:18 [facility] (Rec: 08/14/20 12:05 [facility] [id number]) Hot Pack/Cold Pack Treatment Hot Pack Location lumbar and glutes Patient Position Prone Treatment Duration (minutes) 15 PT-OP-T Assessment and Plan Start: 05/23/20 17:56 Freq: Status: Active Protocol: Document 11/13/20 11:19 [facility] (Rec: 11/13/20 12:11 [facility] [id number]) Physical Therapy Assessment Goals uneven Impairment SLS 4 w/hand son hips & able to stand errect Short Term Goal (STG) SLS 10 w/hand son hips & able to stand errect 11/13-5 sec B STG Duration 12/13/20 Lead Javascript Developer Goal (LTG) Pt will be able to hike on uneven trails for 2-3 miles without increased pain. 11/13-has not tried LTG Duration 01/13/21 LEFS Impairment 45/80 Mcfp Goal (LTG) Pt will improve to 60/80 to show improved functional ability. 07/24-n/t LTG Duration 01/13/21 ADLs Short Term Goal (STG) Pt will be able to don/doff shoes even with zippers or laces without difficulty or inc pain. 07/24-able to but does have some pain 09/18-occ pain on R STG Duration achieved Lead Javascript Developer Goal (LTG) Pt will be able to do sit<> stand without increased pain 07/24-some pain, no catching 09/18-not painful if careful LTG Duration achieved strength Short Term Goal (STG) Pt will be indep with HEP. STG Duration achieved Lead Javascript Developer Goal (LTG) Pt will score 5/5 on LE strength and 3/5 on EFT, LPM to show improved stability in order to allow pt to have greater ease with transitional movements with less pain. 07/24-improving 09/18-improving LTG Duration 01/13 activities Short Term Goal (STG) Pt will be able to bike with grandkids without inc pain. 07/24-has not tried 11/13-has not tried STG Duration 12/13/20 Mcfp Goal (LTG) Pt will be able to walk 1-2 mile with minimal difficulty and no more than 2 points inc in pain. LTG Duration achieved Assessment Summary Assessment Pt has made progress towards goals and is showing improved balance and much imrpovement in strength and funcitonal ability. Her biggest complaint functionally is cont dec balance but also notes pain is still present but better iwth back and knees. She was able to improve with balance after working at it for 15 min and improved SLS after. She would beneift from cont PT to cont to improve balance to dec risk for any further falls. Physical Therapy Plan Frequency and Duration Frequency of Treatment 1-2x week Duration of Treatment 2 months Plan of Care Start Date 11/13/20 Plan of Care End Date 01/13/21 Therapeutic Interventions Therapeutic Interventions Aquatic Therapy,Balance Training,Gait Training,Home Exercise Program,Joint Mobilizations,Manual Therapy, Neuromuscular Re-education, Patient/Caregiver Education, Self-Care/Home Management,Soft Tissue Mobilization,Taping, Therapeutic Activities, Therapeutic Exercises Modalities Cold Pack/Ice Massage,Electric Stimulation,Hot Packs, Infrared Therapy,Iontophoresis ,Traction- Mechanical, Ultrasound Next Visit Focus/Plan Next Note Type Treatment Note Next Visit Plan work on balance and stability
--- NOTE | 2020-11-13 13:25 | PT.OPPOC ---
Physical, Occupational & Speech Therapy At [facility] Current Diagnoses Bilateral primary osteoarthritis of knee (11/13/20) Spondylosis without myelopathy or radiculopathy, lumbar region (11/13/20) Difficulty in walking, not elsewhere classified (11/13/20) Abnormal posture (11/13/20) Weakness (11/13/20) Visit Care Team Role Provider Type SEDRICK Morejon Family Provider Non-Staff Primary Care Provider Specialty: Medical Address: [address] [place] [address], [phone] Email: Sergey Boss MD Attending Provider Non-Staff Referring Provider Specialty: Orthopedic Surgery Address: [address] [place] [address], [phone] Email: Plan Of Care PT-OP-T Assessment and Plan Start: 05/23/20 17:56 Freq: Status: Active Protocol: Document 11/13/20 11:19 [facility] (Rec: 11/13/20 12:11 [facility] [id number]) Physical Therapy Assessment Goals uneven Impairment SLS 4 w/hand son hips & able to stand errect Short Term Goal (STG) SLS 10 w/hand son hips & able to stand errect 11/13-5 sec B STG Duration 12/13/20 Media Liaison Officer Goal (LTG) Pt will be able to hike on uneven trails for 2-3 miles without increased pain. 11/13-has not tried LTG Duration 01/13/21 LEFS Impairment 45/80 Media Liaison Officer Goal (LTG) Pt will improve to 60/80 to show improved functional ability. 07/24-n/t LTG Duration 01/13/21 ADLs Short Term Goal (STG) Pt will be able to don/doff shoes even with zippers or laces without difficulty or inc pain. 1/4-able to but does have some pain 3/-occ pain on R STG Duration achieved Fdc Goal (LTG) Pt will be able to do sit<> stand without increased pain 1/4-some pain, no catching 3/-not painful if careful LTG Duration achieved strength Short Term Goal (STG) Pt will be indep with HEP. STG Duration achieved Fdc Goal (LTG) Pt will score 5/5 on LE strength and 3/5 on EFT, LPM to show improved stability in order to allow pt to have greater ease with transitional movements with less pain. 07/24-improving 09/18-improving LTG Duration 01/13 activities Short Term Goal (STG) Pt will be able to bike with grandkids without inc pain. 07/24-has not tried 11/13-has not tried STG Duration 12/13/20 Fdc Goal (LTG) Pt will be able to walk 1-2 mile with minimal difficulty and no more than 2 points inc in pain. LTG Duration achieved Assessment Summary Assessment Pt has made progress towards goals and is showing improved balance and much imrpovement in strength and funcitonal ability. Her biggest complaint functionally is cont dec balance but also notes pain is still present but better iwth back and knees. She was able to improve with balance after working at it for 15 min and improved SLS after. She would beneift from cont PT to cont to improve balance to dec risk for any further falls. Physical Therapy Plan Frequency and Duration Frequency of Treatment 1-2x week Duration of Treatment 2 months Plan of Care Start Date 11/13/20 Plan of Care End Date 01/13/21 Therapeutic Interventions Therapeutic Interventions Aquatic Therapy,Balance Training,Gait Training,Home Exercise Program,Joint Mobilizations,Manual Therapy, Neuromuscular Re-education, Patient/Caregiver Education, Self-Care/Home Management,Soft Tissue Mobilization,Taping, Therapeutic Activities, Therapeutic Exercises Modalities Cold Pack/Ice Massage,Electric Stimulation,Hot Packs, Infrared Therapy,Iontophoresis ,Traction- Mechanical, Ultrasound Next Visit Focus/Plan Next Note Type Treatment Note Next Visit Plan work on balance and stability Plan of Care Dates Plan of Care Start Date 11/13/20 Plan of Care End Date 01/13/21 Electronically Signed by: Fernanda Novak, PT 11/13/20 [id number] Please Sign and Return: I have reviewed this Plan of Care and certify that the skilled therapy services above are required to meet the patient?s needs. Physician Signature Date Printed Name and Credentials Clinical Instructor Signature Printed Name and Credentials
--- NOTE | 2020-11-20 12:07 | PT.OTN ---
Current Diagnoses Bilateral primary osteoarthritis of knee (11/20/20) Spondylosis without myelopathy or radiculopathy, lumbar region (11/20/20) Difficulty in walking, not elsewhere classified (11/20/20) Abnormal posture (11/20/20) Weakness (11/20/20) Physical Therapy Treatment Note PT-OP-A Visit Information Start: 05/23/20 17:56 Freq: Status: Active Protocol: Document 11/20/20 11:18 [facility] (Rec: 11/20/20 12:07 [facility] [id number]) Out-Patient Physical Therapy Visit Information Visit Information Visit Type Treatment Note Visit Note 08/30 Visit Start Time 11:18 Visit Stop Time 11:58 Total Visit Minutes 40 Visit Number 24 Number of SLAG WORKER Visits 0 PT-OP-B Current Condition Start: 05/23/20 17:56 Freq: Status: Active Protocol: Document 05/24/20 09:04 [facility] (Rec: 05/24/20 09:47 [facility] [id number]) Current Condition History of Current Condition Onset Date chronic Current Complaints LBP & B knee pain History of Current Condition Pt reports LBP started decades ago fromf alling down the stairs. Pt reprots knee pain starting 10 years ago. She has a torn meniscus but that got better with PT. Now arthritis noted. Pt reports LB just locks and it takes her stopping mult times on her way to her car. PT reports getting B sciatica to her knees. Prior Treatments and Tests cortizone injections that helped knees Treatment Goals Patient/Caregiver Goals to get stronger so has a better rehab, be able to bike w/grandkids, be able to go walking Personal Factors Other Personal Factors That May Effect appendectomy, ovarian cyst Therapy/Recovery removed, back pain, B knee pain, oopherectomy, bladder sling PT-OP-C Subjective Start: 05/23/20 17:56 Freq: Status: Active Protocol: Document 11/20/20 11:18 [facility] (Rec: 11/20/20 12:07 [facility] [id number]) OP-PT Subjective Patient Comments Patient Comments Pt reprots backa nd knees doingokay today PT-OP-F Manual Assessment Start: 05/23/20 17:56 Freq: Status: Active Protocol: Document 05/24/20 09:04 [facility] (Rec: 05/24/20 09:47 [facility] [id number]) Manual Assessments Joint Mobility Assessment Joint Mobility Assessment IR of femurs & ER of tibia B, R valgus rearfoot, turning out of RLE in standing PT-OP-G Mobility & Gait Start: 05/23/20 17:56 Freq: Status: Active Protocol: Document 05/24/20 09:04 [facility] (Rec: 05/24/20 09:47 [facility] [id number]) OP Gait Assessment Comments Gait Comments lat leaning B w/less wt shift to L, dec push off B PT-OP-J Posture/Palpation/Skin Start: 05/23/20 17:56 Freq: Status: Active Protocol: Document 11/13/20 11:19 [facility] (Rec: 11/13/20 12:11 [facility] [id number]) Posture Evaluation Whitney Postural Classification System Vertebral Compression Test 3 Elbow Flexion Test 2 Lumbar Protective Mechanism Left AP 2 Lumbar Protective Mechanism Right AP 2 Lumbar Protective Mechanism Left PA 2 Lumbar Protective Mechanism Right PA 2 PT-OP-K Range of Motion Start: 05/23/20 17:56 Freq: Status: Active Protocol: Document 05/24/20 09:04 [facility] (Rec: 05/24/20 09:47 [facility] [id number]) Lumbar Spine Range of Motion Lumbar Spine Active Degrees Flexion 30 Extension 2 Rotation Left 33 Rotation Right 13 Lateral Flexion Left 13 Lateral Flexion Right 16 Comments pain ext PT-OP-L Special Tests Start: 05/23/20 17:56 Freq: Status: Active Protocol: Document 05/24/20 09:04 [facility] (Rec: 05/24/20 09:47 [facility] [id number]) Special Tests Knee Special Tests Straight Leg Raise Comments about 70 deg B HS tightness PT-OP-M Strength Start: 05/23/20 17:56 Freq: Status: Active Protocol: Document 11/13/20 11:19 [facility] (Rec: 11/13/20 12:11 [facility] [id number]) Hip Strength Hip Manual Muscle Testing Right Flexion (L2) 5 Normal Extension (S1) 4+ Good+ Abduction 4+ Good+ Adduction 4+ Good+ External Rotation 4+ Good+ Internal Rotation 5 Normal Left Flexion (L2) 5 Normal Extension (S1) 4+ Good+ Abduction 4+ Good+ Adduction 4+ Good+ External Rotation 4+ Good+ Internal Rotation 5 Normal Knee Strength Knee Manual Muscle Testing Right Flexion (S2) 5 Normal Extension (L3) 5 Normal Left Flexion (S2) 5 Normal Extension (L3) 5 Normal Ankle/Foot Strength Ankle and Foot Manual Muscle Testing Right Dorsiflexion (L4) 5 Normal Plantarflexion (S1) 5 Normal Inversion 5 Normal Eversion (S1) 5 Normal Left Dorsiflexion (L4) 5 Normal Plantarflexion (S1) 5 Normal Inversion 5 Normal Eversion (S1) 5 Normal Comments PF tested standing PT-OP-Q Treatments Start: 05/23/20 17:56 Freq: Status: Active Protocol: Document 11/20/20 11:18 [facility] (Rec: 11/20/20 12:07 [facility] [id number]) Gym Equipment Sport Cord fwd Cord/Resistance green Comments 1.fwd wt shifts in mirror x10 2. fwd walkg x10 Therapeutic Exercises Standing Exercises flex Standing Exercise Name w/retract Side bilateral Equipment Used L1 Reps/Minutes 20 Comments focus on neutrals pine ER Standing Exercise Name B shoulder w/pronation Side bilateral Equipment Used L1 Reps/Minutes 2x10 Comments focus on neutrla spine shoulder ext Side bilateral Equipment Used L1 Reps/Minutes 2x15 Comments focus on neutral spine stabilization Standing Exercise Name gentle isometric reversals in good posture Therapeutic Activity Therapeutic Activity posture Name standing posture Neuro Re-Education Treatment Balance Activities Hurdles Details over 6 Reps/Duration fwd x8 Comments reciprocal w/slow contorlled motion & quiet decent w/green and blue tpads blue foam Comments WBOS & NBOS & staggered stance EC trials 2. marching EO PT-OP-R Modalities Start: 05/23/20 17:56 Freq: Status: Active Protocol: Document 08/14/20 11:18 [facility] (Rec: 08/14/20 12:05 [facility] [id number]) Hot Pack/Cold Pack Treatment Hot Pack Location lumbar and glutes Patient Position Prone Treatment Duration (minutes) 15 PT-OP-T Assessment and Plan Start: 05/23/20 17:56 Freq: Status: Active Protocol: Document 11/20/20 11:18 [facility] (Rec: 11/20/20 12:07 [facility] [id number]) Physical Therapy Assessment Goals uneven Impairment SLS 4 w/hand son hips & able to stand errect Short Term Goal (STG) SLS 10 w/hand son hips & able to stand errect 11/13-5 sec B STG Duration 12/13/20 [facility] Goal (LTG) Pt will be able to hike on uneven trails for 2-3 miles without increased pain. 11/13-has not tried LTG Duration 01/13/21 LEFS Impairment 45/80 Physical Therapist Assistant Goal (LTG) Pt will improve to 60/80 to show improved functional ability. 07/24-n/t LTG Duration 01/13/21 ADLs Short Term Goal (STG) Pt will be able to don/doff shoes even with zippers or laces without difficulty or inc pain. 07/24-able to but does have some pain 09/18-occ pain on R STG Duration achieved Physical Therapist Assistant Goal (LTG) Pt will be able to do sit<> stand without increased pain 07/24-some pain, no catching 09/18-not painful if careful LTG Duration achieved strength Short Term Goal (STG) Pt will be indep with HEP. STG Duration achieved [facility] Goal (LTG) Pt will score 5/5 on LE strength and 3/5 on EFT, LPM to show improved stability in order to allow pt to have greater ease with transitional movements with less pain. 07/24-improving 09/18-improving LTG Duration 01/13 activities Short Term Goal (STG) Pt will be able to bike with grandkids without inc pain. 07/24-has not tried 11/13-has not tried STG Duration 12/13/20 Physical Therapist Assistant Goal (LTG) Pt will be able to walk 1-2 mile with minimal difficulty and no more than 2 points inc in pain. LTG Duration achieved Assessment Summary Assessment Pt requires max cuieng for staying in good postural alignment when walking or when doing balance exercises. SHe is improving with balance though. DIfficulty w/neutral spine w/scap movements & UE movements Physical Therapy Plan Frequency and Duration Frequency of Treatment 1-2x week Duration of Treatment 2 months Plan of Care Start Date 11/13/20 Plan of Care End Date 01/13/21 Next Visit Focus/Plan Next Note Type Treatment Note Next Visit Plan work on balance and stability
--- NOTE | 2020-12-05 17:56 | PT.OTN ---
Current Diagnoses Bilateral primary osteoarthritis of knee (12/05/20) Spondylosis without myelopathy or radiculopathy, lumbar region (12/05/20) Difficulty in walking, not elsewhere classified (12/05/20) Abnormal posture (12/05/20) Weakness (12/05/20) Physical Therapy Treatment Note PT-OP-A Visit Information Start: 05/23/20 17:56 Freq: Status: Active Protocol: Document 12/05/20 17:49 [facility] (Rec: 12/05/20 17:56 [facility] [id number]) Out-Patient Physical Therapy Visit Information Visit Information Visit Type Treatment Note Visit Note 09/27 Visit Start Time 16:47 Visit Stop Time 17:27 Total Visit Minutes 40 Visit Number 25 Number of INSOLE BEVELER Visits 0 PT-OP-B Current Condition Start: 05/23/20 17:56 Freq: Status: Active Protocol: Document 05/24/20 09:04 [facility] (Rec: 05/24/20 09:47 [facility] [id number]) Current Condition History of Current Condition Onset Date chronic Current Complaints LBP & B knee pain History of Current Condition Pt reports LBP started decades ago fromf alling down the stairs. Pt reprots knee pain starting 10 years ago. She has a torn meniscus but that got better with PT. Now arthritis noted. Pt reports LB just locks and it takes her stopping mult times on her way to her car. PT reports getting B sciatica to her knees. Prior Treatments and Tests cortizone injections that helped knees Treatment Goals Patient/Caregiver Goals to get stronger so has a better rehab, be able to bike w/grandkids, be able to go walking Personal Factors Other Personal Factors That May Effect appendectomy, ovarian cyst Therapy/Recovery removed, back pain, B knee pain, oopherectomy, bladder sling PT-OP-C Subjective Start: 05/23/20 17:56 Freq: Status: Active Protocol: Document 12/05/20 17:49 [facility] (Rec: 12/05/20 17:56 [facility] [id number]) OP-PT Subjective Patient Comments Patient Comments Pt reports she has been working on shoPrêt d'Unionler rolls which helps her neck. She fell the other day, sitting down in her rolling chair but did not hurt herself. PT-OP-F Manual Assessment Start: 05/23/20 17:56 Freq: Status: Active Protocol: Document 05/24/20 09:04 [facility] (Rec: 05/24/20 09:47 [facility] [id number]) Manual Assessments Joint Mobility Assessment Joint Mobility Assessment IR of femurs & ER of tibia B, R valgus rearfoot, turning out of RLE in standing PT-OP-G Mobility & Gait Start: 05/23/20 17:56 Freq: Status: Active Protocol: Document 05/24/20 09:04 [facility] (Rec: 05/24/20 09:47 [facility] [id number]) OP Gait Assessment Comments Gait Comments lat leaning B w/less wt shift to L, dec push off B PT-OP-J Posture/Palpation/Skin Start: 05/23/20 17:56 Freq: Status: Active Protocol: Document 11/13/20 11:19 [facility] (Rec: 11/13/20 12:11 [facility] [id number]) Posture Evaluation Whitney Postural Classification System Vertebral Compression Test 3 Elbow Flexion Test 2 Lumbar Protective Mechanism Left AP 2 Lumbar Protective Mechanism Right AP 2 Lumbar Protective Mechanism Left PA 2 Lumbar Protective Mechanism Right PA 2 PT-OP-K Range of Motion Start: 05/23/20 17:56 Freq: Status: Active Protocol: Document 05/24/20 09:04 [facility] (Rec: 05/24/20 09:47 [facility] [id number]) Lumbar Spine Range of Motion Lumbar Spine Active Degrees Flexion 30 Extension 2 Rotation Left 33 Rotation Right 13 Lateral Flexion Left 13 Lateral Flexion Right 16 Comments pain ext PT-OP-L Special Tests Start: 05/23/20 17:56 Freq: Status: Active Protocol: Document 05/24/20 09:04 [facility] (Rec: 05/24/20 09:47 [facility] [id number]) Special Tests Knee Special Tests Straight Leg Raise Comments about 70 deg B HS tightness PT-OP-M Strength Start: 05/23/20 17:56 Freq: Status: Active Protocol: Document 11/13/20 11:19 [facility] (Rec: 11/13/20 12:11 [facility] [id number]) Hip Strength Hip Manual Muscle Testing Right Flexion (L2) 5 Normal Extension (S1) 4+ Good+ Abduction 4+ Good+ Adduction 4+ Good+ External Rotation 4+ Good+ Internal Rotation 5 Normal Left Flexion (L2) 5 Normal Extension (S1) 4+ Good+ Abduction 4+ Good+ Adduction 4+ Good+ External Rotation 4+ Good+ Internal Rotation 5 Normal Knee Strength Knee Manual Muscle Testing Right Flexion (S2) 5 Normal Extension (L3) 5 Normal Left Flexion (S2) 5 Normal Extension (L3) 5 Normal Ankle/Foot Strength Ankle and Foot Manual Muscle Testing Right Dorsiflexion (L4) 5 Normal Plantarflexion (S1) 5 Normal Inversion 5 Normal Eversion (S1) 5 Normal Left Dorsiflexion (L4) 5 Normal Plantarflexion (S1) 5 Normal Inversion 5 Normal Eversion (S1) 5 Normal Comments PF tested standing PT-OP-Q Treatments Start: 05/23/20 17:56 Freq: Status: Active Protocol: Document 12/05/20 17:49 [facility] (Rec: 12/05/20 17:56 [facility] [id number]) Gym Equipment Sport Cord fwd Cord/Resistance green Comments 1.fwd wt shifts in mirror x10 B 2. fwd wt shift in mirror w/ step trhoguh x8 B 3. fwd walkg x10 Therapeutic Exercises Standing Exercises flex Standing Exercise Name w/retract Side bilateral Equipment Used L1 Reps/Minutes 20 Comments focus on neutrals pine ER Standing Exercise Name B shoulder w/pronation Side bilateral Equipment Used L1 Reps/Minutes 2x10 Comments focus on neutrla spine shoulder ext Side bilateral Equipment Used L1 Reps/Minutes 2x15 Comments focus on neutral spine Neuro Re-Education Treatment Balance Activities EC Details fwd/back walking Reps/Duration 50ft ea bosu Comments 1. step up x10 B 2. standing balance tandem Comments 1. stance 2. walking 2x20ft SLS Comments 1. trials B 2. ball rolls B CW/CWW blue foam Comments 1. WBOS & NBOS & staggered stance EC trials 2. marching EO PT-OP-R Modalities Start: 05/23/20 17:56 Freq: Status: Active Protocol: Document 08/14/20 11:18 [facility] (Rec: 08/14/20 12:05 [facility] [id number]) Hot Pack/Cold Pack Treatment Hot Pack Location lumbar and glutes Patient Position Prone Treatment Duration (minutes) 15 PT-OP-T Assessment and Plan Start: 05/23/20 17:56 Freq: Status: Active Protocol: Document 12/05/20 17:49 [facility] (Rec: 12/05/20 17:56 [facility] [id number]) Physical Therapy Assessment Goals uneven Impairment SLS 4 w/hand son hips & able to stand errect Short Term Goal (STG) SLS 10 w/hand son hips & able to stand errect 11/13-5 sec B STG Duration 12/13/[address]sellor Goal (LTG) Pt will be able to hike on uneven trails for 2-3 miles without increased pain. 11/13-has not tried LTG Duration 01/13/21 LEFS Impairment 45/80 Snf Goal (LTG) Pt will improve to 60/80 to show improved functional ability. 07/24-n/t LTG Duration 01/13/21 ADLs Short Term Goal (STG) Pt will be able to don/doff shoes even with zippers or laces without difficulty or inc pain. 07/24-able to but does have some pain 09/18-occ pain on R STG Duration achieved Family Court Counsellor Goal (LTG) Pt will be able to do sit<> stand without increased pain 07/24-some pain, no catching 09/18-not painful if careful LTG Duration achieved strength Short Term Goal (STG) Pt will be indep with HEP. STG Duration achieved Snf Goal (LTG) Pt will score 5/5 on LE strength and 3/5 on EFT, LPM to show improved stability in order to allow pt to have greater ease with transitional movements with less pain. 07/24-improving 09/18-improving LTG Duration 01/13 activities Short Term Goal (STG) Pt will be able to bike with grandkids without inc pain. 07/24-has not tried 11/13-has not tried STG Duration 12/13/[address]sellor Goal (LTG) Pt will be able to walk 1-2 mile with minimal difficulty and no more than 2 points inc in pain. LTG Duration achieved Assessment Summary Assessment pt did well with balanec exercises today and was able to do SLS B >10 sec. SHe was most challenged bby maintaining posture during exercises. Physical Therapy Plan Frequency and Duration Frequency of Treatment 1-2x week Duration of Treatment 2 months Plan of Care Start Date 11/13/20 Plan of Care End Date 01/13/21 Next Visit Focus/Plan Next Note Type Treatment Note Next Visit Plan work on balance and stability
--- NOTE | 2020-12-25 12:47 | PT.OTN ---
Current Diagnoses Bilateral primary osteoarthritis of knee (12/25/20) Spondylosis without myelopathy or radiculopathy, lumbar region (12/25/20) Difficulty in walking, not elsewhere classified (12/25/20) Abnormal posture (12/25/20) Weakness (12/25/20) Physical Therapy Treatment Note PT-OP-A Visit Information Start: 05/23/20 17:56 Freq: Status: Active Protocol: Document 12/25/20 12:00 MA (Rec: 12/25/20 12:46 MA [id number]) Out-Patient Physical Therapy Visit Information Visit Information Visit Type Treatment Note Visit Note 10/28 Visit Start Time 11:55 Visit Stop Time 12:40 Total Visit Minutes 45 Visit Number 26 Number of DATA PROCESSING SUPERVISOR Visits 1 PT-OP-B Current Condition Start: 05/23/20 17:56 Freq: Status: Active Protocol: Document 05/24/20 09:04 [facility] (Rec: 05/24/20 09:47 [facility] [id number]) Current Condition History of Current Condition Onset Date chronic Current Complaints LBP & B knee pain History of Current Condition Pt reports LBP started decades ago fromf alling down the stairs. Pt reprots knee pain starting 10 years ago. She has a torn meniscus but that got better with PT. Now arthritis noted. Pt reports LB just locks and it takes her stopping mult times on her way to her car. PT reports getting B sciatica to her knees. Prior Treatments and Tests cortizone injections that helped knees Treatment Goals Patient/Caregiver Goals to get stronger so has a better rehab, be able to bike w/grandkids, be able to go walking Personal Factors Other Personal Factors That May Effect appendectomy, ovarian cyst Therapy/Recovery removed, back pain, B knee pain, oopherectomy, bladder sling PT-OP-C Subjective Start: 05/23/20 17:56 Freq: Status: Active Protocol: Document 12/25/20 12:00 MA (Rec: 12/25/20 12:46 MA [id number]) OP-PT Subjective Patient Comments Patient Comments Pt has been moving furntiure so her mom's floors could be redone and is sore and tired today. PT-OP-F Manual Assessment Start: 05/23/20 17:56 Freq: Status: Active Protocol: Document 05/24/20 09:04 [facility] (Rec: 05/24/20 09:47 [facility] [id number]) Manual Assessments Joint Mobility Assessment Joint Mobility Assessment IR of femurs & ER of tibia B, R valgus rearfoot, turning out of RLE in standing PT-OP-G Mobility & Gait Start: 05/23/20 17:56 Freq: Status: Active Protocol: Document 05/24/20 09:04 [facility] (Rec: 05/24/20 09:47 [facility] [id number]) OP Gait Assessment Comments Gait Comments lat leaning B w/less wt shift to L, dec push off B PT-OP-J Posture/Palpation/Skin Start: 05/23/20 17:56 Freq: Status: Active Protocol: Document 11/13/20 11:19 [facility] (Rec: 11/13/20 12:11 [facility] [id number]) Posture Evaluation Whitney Postural Classification System Vertebral Compression Test 3 Elbow Flexion Test 2 Lumbar Protective Mechanism Left AP 2 Lumbar Protective Mechanism Right AP 2 Lumbar Protective Mechanism Left PA 2 Lumbar Protective Mechanism Right PA 2 PT-OP-K Range of Motion Start: 05/23/20 17:56 Freq: Status: Active Protocol: Document 05/24/20 09:04 [facility] (Rec: 05/24/20 09:47 [facility] [id number]) Lumbar Spine Range of Motion Lumbar Spine Active Degrees Flexion 30 Extension 2 Rotation Left 33 Rotation Right 13 Lateral Flexion Left 13 Lateral Flexion Right 16 Comments pain ext PT-OP-L Special Tests Start: 05/23/20 17:56 Freq: Status: Active Protocol: Document 05/24/20 09:04 [facility] (Rec: 05/24/20 09:47 [facility] [id number]) Special Tests Knee Special Tests Straight Leg Raise Comments about 70 deg B HS tightness PT-OP-M Strength Start: 05/23/20 17:56 Freq: Status: Active Protocol: Document 11/13/20 11:19 [facility] (Rec: 11/13/20 12:11 [facility] [id number]) Hip Strength Hip Manual Muscle Testing Right Flexion (L2) 5 Normal Extension (S1) 4+ Good+ Abduction 4+ Good+ Adduction 4+ Good+ External Rotation 4+ Good+ Internal Rotation 5 Normal Left Flexion (L2) 5 Normal Extension (S1) 4+ Good+ Abduction 4+ Good+ Adduction 4+ Good+ External Rotation 4+ Good+ Internal Rotation 5 Normal Knee Strength Knee Manual Muscle Testing Right Flexion (S2) 5 Normal Extension (L3) 5 Normal Left Flexion (S2) 5 Normal Extension (L3) 5 Normal Ankle/Foot Strength Ankle and Foot Manual Muscle Testing Right Dorsiflexion (L4) 5 Normal Plantarflexion (S1) 5 Normal Inversion 5 Normal Eversion (S1) 5 Normal Left Dorsiflexion (L4) 5 Normal Plantarflexion (S1) 5 Normal Inversion 5 Normal Eversion (S1) 5 Normal Comments PF tested standing PT-OP-Q Treatments Start: 05/23/20 17:56 Freq: Status: Active Protocol: Document 12/25/20 12:00 MA (Rec: 12/25/20 12:46 MA [id number]) Gym Equipment Shuttle Balance red clips Comments fwd & side: WBOS & NBOS fwd :staggered stance B Sport Cord side Cord/Resistance green Comments When returning from stepping L , pt has R knee and hip pain fwd Cord/Resistance green Comments 1.fwd wt shifts in mirror x10 B 2. fwd wt shift in mirror w/ step trhoguh x8 B 3. fwd walkg x10 Therapeutic Exercises Supine Exercises Maxwell Stretch Side bilateral Reps/Minutes 60 sec ea Standing Exercises flex Standing Exercise Name w/retract Side bilateral Equipment Used L1 Reps/Minutes 20 Comments focus on neutrals pine ER Standing Exercise Name B shoulder w/pronation Side bilateral Equipment Used L1 Reps/Minutes 2x10 Comments focus on neutrla spine shoulder ext Side bilateral Equipment Used L1 Reps/Minutes 2x15 Comments focus on neutral spine Gait Training Gait Activity gait Comments 1. gait working on push off Neuro Re-Education Treatment Balance Activities tandem Comments 1. stance 2. walking 2x20ft SLS Comments 1. trails B PT-OP-R Modalities Start: 05/23/20 17:56 Freq: Status: Active Protocol: Document 08/14/20 11:18 [facility] (Rec: 08/14/20 12:05 [facility] [id number]) Hot Pack/Cold Pack Treatment Hot Pack Location lumbar and glutes Patient Position Prone Treatment Duration (minutes) 15 PT-OP-T Assessment and Plan Start: 05/23/20 17:56 Freq: Status: Active Protocol: Document 12/25/20 12:00 MA (Rec: 12/25/20 12:46 MA [id number]) Physical Therapy Assessment Goals uneven Impairment SLS 4 w/hand son hips & able to stand errect Short Term Goal (STG) SLS 10 w/hand son hips & able to stand errect 11/13-5 sec B STG Duration 12/13/20 Software Performance Engineer Goal (LTG) Pt will be able to hike on uneven trails for 2-3 miles without increased pain. 11/13-has not tried LTG Duration 01/13/21 LEFS Impairment 45/80 Software Performance Engineer Goal (LTG) Pt will improve to 60/80 to show improved functional ability. 07/24-n/t LTG Duration 01/13/21 ADLs Short Term Goal (STG) Pt will be able to don/doff shoes even with zippers or laces without difficulty or inc pain. 07/24-able to but does have some pain 09/18-occ pain on R STG Duration achieved Assisted Goal (LTG) Pt will be able to do sit<> stand without increased pain 07/24-some pain, no catching 09/18-not painful if careful LTG Duration achieved strength Short Term Goal (STG) Pt will be indep with HEP. STG Duration achieved Software Performance Engineer Goal (LTG) Pt will score 5/5 on LE strength and 3/5 on EFT, LPM to show improved stability in order to allow pt to have greater ease with transitional movements with less pain. 07/24-improving 09/18-improving LTG Duration 01/13 activities Short Term Goal (STG) Pt will be able to bike with grandkids without inc pain. 07/24-has not tried 11/13-has not tried STG Duration 12/13/20 Software Performance Engineer Goal (LTG) Pt will be able to walk 1-2 mile with minimal difficulty and no more than 2 points inc in pain. LTG Duration achieved Assessment Summary Assessment Pt had decreased balance today and was unable to complete more than 3 sec SLS on RLE. Pt could do 10 sec on LLE but with increased lateral lean. She improved on shuttle balance with staggered stance but had pain in R knee afterwards. During resisted gait, pt needs cues to avoid having a NBOS and tends to have a minor trendelenberg gait R. Pt can self correct with mirror in front of her showing good carryover from previous sessions. Pt would continue to benefit from skilled PT for improving balance to decrease falls and for decreasing R knee pain. Physical Therapy Plan Frequency and Duration Frequency of Treatment 1-2x week Duration of Treatment 2 months Plan of Care Start Date 11/13/20 Plan of Care End Date 01/13/21 Therapeutic Interventions Therapeutic Interventions Aquatic Therapy,Balance Training,Gait Training,Home Exercise Program,Joint Mobilizations,Manual Therapy, Neuromuscular Re-education, Patient/Caregiver Education, Self-Care/Home Management,Soft Tissue Mobilization,Taping, Therapeutic Activities, Therapeutic Exercises Modalities Cold Pack/Ice Massage,Electric Stimulation,Hot Packs, Infrared Therapy,Iontophoresis ,Traction- Mechanical, Ultrasound Next Visit Focus/Plan Next Note Type Treatment Note Next Visit Plan work on balance and stability
--- NOTE | 2021-03-15 15:06 | PT.OPDS ---
Current Diagnoses Bilateral primary osteoarthritis of knee (12/25/20) Spondylosis without myelopathy or radiculopathy, lumbar region (12/25/20) Difficulty in walking, not elsewhere classified (12/25/20) Abnormal posture (12/25/20) Weakness (12/25/20) Visit Care Team Role Provider Type SEDRICK Morejon Family Provider Non-Staff Primary Care Provider Specialty: Medical Address: [address] [place] [address], [place], [address] Email: Sergey Boss MD Attending Provider Non-Staff Referring Provider Specialty: Orthopedic Surgery Address: [address] [place] [address], [phone] Email: Visit Number Visit Number 26 Discharge Summary PT-OP-B Current Condition Start: 05/23/20 17:56 Freq: Status: Active Protocol: Document 05/24/20 09:04 [facility] (Rec: 05/24/20 09:47 [facility] [id number]) Current Condition History of Current Condition Onset Date chronic Current Complaints LBP & B knee pain History of Current Condition Pt reports LBP started decades ago fromf alling down the stairs. Pt reprots knee pain starting 10 years ago. She has a torn meniscus but that got better with PT. Now arthritis noted. Pt reports LB just locks and it takes her stopping mult times on her way to her car. PT reports getting B sciatica to her knees. Prior Treatments and Tests cortizone injections that helped knees Treatment Goals Patient/Caregiver Goals to get stronger so has a better rehab, be able to bike w/grandkids, be able to go walking Personal Factors Other Personal Factors That May Effect appendectomy, ovarian cyst Therapy/Recovery removed, back pain, B knee pain, oopherectomy, bladder sling PT-OP-C Subjective Start: 05/23/20 17:56 Freq: Status: Active Protocol: Document 12/25/20 12:00 MA (Rec: 12/25/20 12:46 MA [id number]) OP-PT Subjective Patient Comments Patient Comments Pt has been moving furntiure so her mom's floors could be redone and is sore and tired today. PT-OP-F Manual Assessment Start: 05/23/20 17:56 Freq: Status: Active Protocol: Document 05/24/20 09:04 [facility] (Rec: 05/24/20 09:47 [facility] [id number]) Manual Assessments Joint Mobility Assessment Joint Mobility Assessment IR of femurs & ER of tibia B, R valgus rearfoot, turning out of RLE in standing PT-OP-G Mobility & Gait Start: 05/23/20 17:56 Freq: Status: Active Protocol: Document 05/24/20 09:04 [facility] (Rec: 05/24/20 09:47 [facility] [id number]) OP Gait Assessment Comments Gait Comments lat leaning B w/less wt shift to L, dec push off B PT-OP-J Posture/Palpation/Skin Start: 05/23/20 17:56 Freq: Status: Active Protocol: Document 11/13/20 11:19 [facility] (Rec: 11/13/20 12:11 [facility] [id number]) Posture Evaluation Whitney Postural Classification System Vertebral Compression Test 3 Elbow Flexion Test 2 Lumbar Protective Mechanism Left AP 2 Lumbar Protective Mechanism Right AP 2 Lumbar Protective Mechanism Left PA 2 Lumbar Protective Mechanism Right PA 2 PT-OP-K Range of Motion Start: 05/23/20 17:56 Freq: Status: Active Protocol: Document 05/24/20 09:04 [facility] (Rec: 05/24/20 09:47 [facility] [id number]) Lumbar Spine Range of Motion Lumbar Spine Active Degrees Flexion 30 Extension 2 Rotation Left 33 Rotation Right 13 Lateral Flexion Left 13 Lateral Flexion Right 16 Comments pain ext PT-OP-L Special Tests Start: 05/23/20 17:56 Freq: Status: Active Protocol: Document 05/24/20 09:04 [facility] (Rec: 05/24/20 09:47 [facility] [id number]) Special Tests Knee Special Tests Straight Leg Raise Comments about 70 deg B HS tightness PT-OP-M Strength Start: 05/23/20 17:56 Freq: Status: Active Protocol: Document 11/13/20 11:19 [facility] (Rec: 11/13/20 12:11 [facility] [id number]) Hip Strength Hip Manual Muscle Testing Right Flexion (L2) 5 Normal Extension (S1) 4+ Good+ Abduction 4+ Good+ Adduction 4+ Good+ External Rotation 4+ Good+ Internal Rotation 5 Normal Left Flexion (L2) 5 Normal Extension (S1) 4+ Good+ Abduction 4+ Good+ Adduction 4+ Good+ External Rotation 4+ Good+ Internal Rotation 5 Normal Knee Strength Knee Manual Muscle Testing Right Flexion (S2) 5 Normal Extension (L3) 5 Normal Left Flexion (S2) 5 Normal Extension (L3) 5 Normal Ankle/Foot Strength Ankle and Foot Manual Muscle Testing Right Dorsiflexion (L4) 5 Normal Plantarflexion (S1) 5 Normal Inversion 5 Normal Eversion (S1) 5 Normal Left Dorsiflexion (L4) 5 Normal Plantarflexion (S1) 5 Normal Inversion 5 Normal Eversion (S1) 5 Normal Comments PF tested standing PT-OP-T Assessment and Plan Start: 05/23/20 17:56 Freq: Status: Active Protocol: Document 03/15/21 15:05 [facility] (Rec: 03/15/21 15:06 [facility] [id number]) Physical Therapy Assessment Assessment Summary Assessment Pt made good progress w/ therapy when attending but has not been seen for over 2 months and cancelled last 2 appt and no showed appt prior to that. DC PT d/t no longer attending Physical Therapy Plan Discharge Physical Therapy Discharge Reasons No Longer Attending PT
== END 2021-03-16 07:50 | disposition home or self-care (01) ==
LOC: PHYS 12:00
PROVIDERS: Family Provider Nurse Practitioner; PCP Nurse Practitioner; Referring Provider Orthopaedic Surgery Sports Medicine; Visit Provider Orthopaedic Surgery Sports Medicine
DX: M17.0 Bilateral primary osteoarthritis of knee (principal); M47.816 Spondylosis without myelopathy or radiculopathy, lumbar region; R29.3 Abnormal posture; R53.1 Weakness; R26.2 Difficulty in walking, not elsewhere classified
CPT/HCPCS: 97010; 97110; 97112; 97116; 97140; 97162; 97530

== ENCOUNTER → 2021-01-31 13:18 | Outpatient (CLI) | payer MEDICARE, BC, SELFPAY ==
--- NOTE | 2021-01-31 13:20 | DI.RAD.S_ITS ---
PROCEDURE: XR CERVICAL SPINE 4V OR 5V INDICATIONS: NECK PAIN TECHNIQUE: 5 views of the cervical spine acquired. COMPARISON: None. FINDINGS: Bones: No fractures or dislocations to the T1 level. Oblique images demonstrate no bony foraminal stenoses. There is leftward curvature of the cervicothoracic spine. The odontoid is intact. Soft tissues: No prevertebral soft tissue swelling. IMPRESSION: Mild multilevel degenerative changes with no acute abnormality. Dictated by: Andrez Bergeron M.D. on 01/31/2021 at 17:53 Approved by: Andrez Bergeron M.D. on 01/31/2021 at 17:54
== END ==
PROVIDERS: Family Provider Nurse Practitioner; PCP Nurse Practitioner; Referring Provider Physical Medicine & Rehabilitation; Visit Provider Physical Medicine & Rehabilitation
DX: M54.2 Cervicalgia (principal); M47.812 Spondylosis without myelopathy or radiculopathy, cervical region
CPT/HCPCS: 72050

== ENCOUNTER → 2021-04-04 08:52 | Outpatient (CLI) | payer MEDICARE, BC, SELFPAY | PROVIDERS: Family Provider Nurse Practitioner; PCP Nurse Practitioner; Referring Provider Nurse Practitioner; Visit Provider Nurse Practitioner | DX: I65.23 Occlusion and stenosis of bilateral carotid arteries (principal); Z53.8 Procedure and treatment not carried out for other reasons ==

== ENCOUNTER → 2021-04-12 08:08 | Outpatient (CLI) | payer MEDICARE, BC, SELFPAY ==
--- NOTE | 2021-04-12 | DI.US.S_ITS ---
PROCEDURE: US CAROTID DOPPLER BI INDICATIONS: STENOSIS TECHNIQUE: Color and pulse Doppler interrogation was performed of both carotid systems, with image documentation and velocity measurements. COMPARISON: [facility], CT, CT ANGIO HEAD AND NECK, 10/07/2019, 19:38. FINDINGS: Stenosis calculations are based on SRU (Society of Radiologists in Ultrasound) criteria. Right side: Brachial blood pressure: 119/76 mm Hg. Common carotid artery peak systolic velocity: 62 cm/sec. Internal carotid artery peak systolic velocity: 55 cm/sec. Internal carotid artery end diastolic velocity: 23 cm/sec. External carotid artery peak systolic velocity: 67 cm/sec. ICA/CCA peak systolic ratio: 0.9 . Jefferson scale imaging description: Mild calcified atherosclerotic plaque. Percent internal carotid artery stenosis: Less than 50% Vertebral artery: Flow direction is antegrade. Left side: Brachial blood pressure: 109/74 mm Hg. Common carotid artery peak systolic velocity: 66 cm/sec. Internal carotid artery peak systolic velocity: 58 cm/sec. Internal carotid artery end diastolic velocity: 18 cm/sec. External carotid artery peak systolic velocity: 61 cm/sec. ICA/CCA peak systolic ratio: 0.9 . Jefferson scale imaging description: Mild calcified atherosclerotic plaque. Percent internal carotid artery stenosis: Less than 50%. Vertebral artery: Flow direction is antegrade. IMPRESSION: Calcified atherosclerotic plaque with less than 50% stenosis of the bilateral internal carotid arteries. Dictated by: Pete Gómez M.D. on 04/12/2021 at 10:01 Approved by: Pete Gómez M.D. on 04/12/2021 at 10:04
== END ==
PROVIDERS: Family Provider Nurse Practitioner; PCP Nurse Practitioner; Referring Provider Nurse Practitioner; Visit Provider Nurse Practitioner
DX: I65.23 Occlusion and stenosis of bilateral carotid arteries (principal)
CPT/HCPCS: 93880

== ENCOUNTER → 2021-05-01 | Outpatient (CLI) | payer MEDICARE, BC, SELFPAY | PROVIDERS: Family Provider Nurse Practitioner; PCP Nurse Practitioner; Referring Provider Internal Medicine; Visit Provider Internal Medicine | DX: Z23 Encounter for immunization (principal) | CPT/HCPCS: 90471; 90662 ==

== ENCOUNTER → 2021-06-29 12:06 | Outpatient (CLI) | payer MEDICARE, BC, SELFPAY ==
[2021-06-29 12:40] LABS: COVID19 -Nasal RAPID Negative (Negative)
== END ==
PROVIDERS: Family Provider Nurse Practitioner; PCP Nurse Practitioner; Visit Provider Physician Assistant
DX: Z20.822 Contact with and (suspected) exposure to COVID-19 (principal)
CPT/HCPCS: 87635; C9803

== ENCOUNTER → 2021-07-06 10:18 | Outpatient (CLI) | payer MEDICARE, BC, SELFPAY ==
[2021-07-06 11:50] LABS: COVID19 -Nasal RAPID Negative (Negative)
== END ==
PROVIDERS: Family Provider Nurse Practitioner; PCP Nurse Practitioner; Visit Provider Physician Assistant
DX: Z20.822 Contact with and (suspected) exposure to COVID-19 (principal)
CPT/HCPCS: 87635; C9803

== ENCOUNTER → 2021-07-21 13:47 | Outpatient (CLI) | payer MEDICARE, BC, SELFPAY ==
[2021-07-21 14:59] LABS: COVID19 -Nasal RAPID Negative (Negative)
== END ==
PROVIDERS: Family Provider Nurse Practitioner; PCP Nurse Practitioner; Visit Provider Physician Assistant
DX: Z20.822 Contact with and (suspected) exposure to COVID-19 (principal)
CPT/HCPCS: 87635

== ENCOUNTER → 2021-10-08 17:20 | Outpatient (CLI) | payer MEDICARE, BC, SELFPAY ==
--- NOTE | 2021-10-08 17:25 | DI.MG.S_ITS ---
BILATERAL DIGITAL SCREENING MAMMOGRAM 3D/2D WITH CAD: 10/08/2021 CLINICAL: Routine screening. Family history of breast cancer. Comparison is made to exams dated: 07/03/2020 mammogram, 06/23/2020 mammogram, 04/23/2018 mammogram, and 05/12/2014 mammogram - [facility]. The tissue of both breasts is predominantly fatty. Current study was also evaluated with a Computer Aided Detection (CAD) system. No significant masses, calcifications, or other findings are seen in either breast. There has been no significant interval change. IMPRESSION: NEGATIVE There is no mammographic evidence of malignancy. A 1 year screening mammogram is recommended. This exam was interpreted at Station ID: [id number]. NOTE: For mammograms, a report in lay terms will be sent to the patient. Approximately 15% of breast malignancies will not be visualized mammographically. In the management of a palpable breast mass, a negative mammogram must not discourage biopsy of a clinically suspicious lesion. Electronically Signed By: Valeria clarke/azael:10/09/2021 10:30:45 letter sent: Normal Exam ACR BI-RADS Category 1: Negative 3341F
== END ==
PROVIDERS: Family Provider Nurse Practitioner; PCP Nurse Practitioner; Referring Provider Nurse Practitioner; Visit Provider Nurse Practitioner
DX: Z12.31 Encounter for screening mammogram for malignant neoplasm of breast (principal); Z80.3 Family history of malignant neoplasm of breast
CPT/HCPCS: 77063; 77067

== ENCOUNTER → 2021-10-12 14:15 | Outpatient (CLI) | payer MEDICARE, BC, SELFPAY ==
--- NOTE | 2021-10-12 | DI.US.S_ITS ---
PROCEDURE: US ABD AORTA ANEURYSM SCREEN INDICATIONS: AAA SCREENING TECHNIQUE: Real time scanning was performed of the aorta and iliac arteries, with image documentation. COMPARISON: [facility], US, ABDOMEN COMPLETE, 02/25/2014, 13:20. [facility], CT, KIDNEY/ URETER/BLADDER, 02/25/2014, 11:44. FINDINGS: Aorta: Proximal aortic diameter measures 2 cm. Mid-aorta measures 2.1 cm. Distal aortic diameter is 1.6 cm. Iliac arteries: Right common iliac artery measures 1.2 cm. Left common iliac artery measures 1.1 cm. IMPRESSION: Negative for aneurysm. Dictated by: Jed Lyman M.D. on 10/12/2021 at 13:42 Approved by: Jed Lyman M.D. on 10/12/2021 at 13:43
== END ==
PROVIDERS: Family Provider Nurse Practitioner; PCP Nurse Practitioner; Referring Provider Nurse Practitioner; Visit Provider Nurse Practitioner
DX: Z13.6 Encounter for screening for cardiovascular disorders (principal); Z82.49 Family history of ischemic heart disease and other diseases of the circulatory system; Z13.820 Encounter for screening for osteoporosis; M85.851 Other specified disorders of bone density and structure, right thigh; Z78.0 Asymptomatic menopausal state
CPT/HCPCS: 76706; 77080

== ENCOUNTER → 2022-01-07 13:48 | Outpatient (CLI) | payer MEDICARE, BC, SELFPAY ==
--- NOTE | 2022-01-07 13:51 | DI.RAD.S_ITS ---
PROCEDURE: XR LUMBAR SPINE MIN 4V INDICATIONS: BACK PAIN TECHNIQUE: 5 views of the lumbar spine were acquired, including bilateral oblique views. COMPARISON: [facility], CR, XR LUMBAR SPINE WITH FLEXION EXTENSION 5 VIEWS, 04/12/2020, 12:03. FINDINGS: Bones: 5 nonrib-bearing vertebrae are present. Convex right thoracolumbar spine scoliosis. There is normal bony alignment. No vertebral body compression fractures. No suspicious bony lesions. Moderate degenerative disc changes noted throughout the lumbar spine. Moderate L3-L4, L4-L5 and L5-S1 facet arthropathy. Mild L1-L2 and L2-L3 facet arthropathy. Soft tissues: Overlying bowel gas pattern is normal. No suspicious soft tissue calcifications. Oblique images: No pars defects. IMPRESSION: 1. Multilevel degenerative disc disease. 2. Multilevel facet arthropathy. 3. No fracture. No acute osseous lesion. If symptoms and/or clinical suspicion for pathology persists, evaluation with MRI should be considered for further assessment. Dictated by: Teresa Nuñez MD, PhD on 01/07/2022 at 15:07 Approved by: Teresa Nuñez MD, PhD on 01/07/2022 at 15:09
== END ==
PROVIDERS: Family Provider Nurse Practitioner; PCP Nurse Practitioner; Referring Provider Physical Medicine & Rehabilitation; Visit Provider Physical Medicine & Rehabilitation
DX: M51.36 Other intervertebral disc degeneration, lumbar region (principal); M47.816 Spondylosis without myelopathy or radiculopathy, lumbar region; M47.817 Spondylosis without myelopathy or radiculopathy, lumbosacral region; M54.9 Dorsalgia, unspecified
CPT/HCPCS: 72110

== ENCOUNTER → 2022-04-17 15:40 | Outpatient (CLI) | payer MEDICARE, BC, SELFPAY | PROVIDERS: Family Provider Nurse Practitioner; PCP Nurse Practitioner; Referring Provider Internal Medicine; Visit Provider Internal Medicine | DX: Z23 Encounter for immunization (principal) | CPT/HCPCS: 90471; 90662 ==

== ENCOUNTER → 2022-10-17 17:21 | Outpatient (CLI) | payer MEDICARE, BC, SELFPAY ==
--- NOTE | 2022-10-17 | DI.MG.S_ITS ---
BILATERAL DIGITAL SCREENING MAMMOGRAM 3D/2D WITH CAD: 10/17/2022 CLINICAL: Routine screening. Family history of breast cancer. Comparison is made to exams dated: 10/08/2021 mammogram, 07/03/2020 mammogram, 06/23/2020 mammogram, 04/23/2018 mammogram, and 05/12/2014 mammogram - [facility]. There are scattered areas of fibroglandular density in both breasts (category b / 25%-50% glandular tissue). Current study was also evaluated with a Computer Aided Detection (CAD) system. No significant masses, calcifications, or other findings are seen in either breast. There has been no significant interval change. IMPRESSION: NEGATIVE There is no mammographic evidence of malignancy. A 1 year screening mammogram is recommended. Based on the Tyrer Cuzick model (a risk assessment model) the patient's lifetime risk is 5.7% and her 10 year risk is 3.3%. According to the ACR, ACS, and NCCN guidelines, an annual breast MRI exam along with mammogram is recommended if the patient's lifetime risk is 20% or greater. This exam was interpreted at Station ID: [id number]. NOTE: For mammograms, a report in lay terms will be sent to the patient. Approximately 15% of breast malignancies will not be visualized mammographically. In the management of a palpable breast mass, a negative mammogram must not discourage biopsy of a clinically suspicious lesion. Electronically Signed By: Blair smith/azael:10/18/2022 11:32:21 letter sent: Normal Exam ACR BI-RADS Category 1: Negative [id number]
== END ==
PROVIDERS: Family Provider Nurse Practitioner; PCP Nurse Practitioner; Referring Provider Nurse Practitioner; Visit Provider Nurse Practitioner
DX: Z12.31 Encounter for screening mammogram for malignant neoplasm of breast (principal)
CPT/HCPCS: 77063; 77067

== ENCOUNTER → 2023-01-09 17:10 | Outpatient (CLI) | payer MEDICARE, BC, SELFPAY | PROVIDERS: Family Provider Nurse Practitioner; PCP Nurse Practitioner; Visit Provider Nurse Practitioner Family | DX: R30.0 Dysuria (principal) | CPT/HCPCS: 87077; 87086; 87186 ==

== ENCOUNTER → 2023-02-10 10:16 | Outpatient (CLI) | payer MEDICARE, BC, SELFPAY ==
--- NOTE | 2023-02-10 | DI.US.S_ITS ---
PROCEDURE: US CAROTID DOPPLER BI INDICATIONS: OCCLUSION AND STENOSIS OF BILATERAL CAROTID ARTERIES TECHNIQUE: Color and pulse Doppler interrogation was performed of both carotid systems, with image documentation and velocity measurements. COMPARISON: [facility], , CAROTID DOPPLER BI, 04/12/2021, 8:19. FINDINGS: Stenosis calculations are based on SRU (Society of Radiologists in Ultrasound) criteria. The flow velocities and the arterial waveforms are normal within both carotid arterial systems. Mild atherosclerotic plaque is seen on both sides. The estimated degree of internal carotid artery stenosis is less than 50%. Antegrade flow is confirmed within both vertebral arteries. IMPRESSION: No hemodynamically significant stenosis is seen. Similar to prior. Dictated by: Jed Lyman M.D. on 02/10/2023 at 12:26 Approved by: Jed Lyman M.D. on 02/10/2023 at 12:27
== END ==
PROVIDERS: Family Provider Nurse Practitioner; PCP Nurse Practitioner; Referring Provider Nurse Practitioner; Visit Provider Nurse Practitioner
DX: I65.23 Occlusion and stenosis of bilateral carotid arteries (principal)
CPT/HCPCS: 93880

== ENCOUNTER → 2023-03-11 08:31 | Outpatient (CLI) | payer MEDICARE, BC, SELFPAY ==
[2023-03-11 10:09] LABS: Add Manual Diff / Slide Review NO; Basophils Absolute Auto 0 /uL (0-100); Basophils Percent Auto 0.4 % (0-2); Eosinophils Absolute Auto 200 /uL (0-450); Hematocrit 34.6 % (36-46); Hemoglobin 11.6 g/dL (12.0-16.0); Lymphocytes Absolute Auto 3500 /uL (1100-4500); Lymphocytes Percent Auto 40.8 % (25-40); Mean Corpuscular HGB Conc 33.6 % (30-36); Mean Corpuscular Hemoglobin 30.1 PG (26-34); Mean Corpuscular Volume 89.6 fL (80-100); Monocytes Absolute Auto 600 /uL (0-900); Monocytes Percent Auto 6.5 % (3-14); Neutrophils Absolute Auto 4300 /uL (1500-7000); Neutrophils Percent Auto 50.3 % (50-75); Platelet Count 249 X10^3/uL (150-400); Red Blood Cell Count 3.86 X10^6/uL (4.0-5.2); Red Cell Distribution Width 13.6 % (11.6-14.8); White Blood Cell Count 8.5 X10^3/uL (4.5-11.0)
[2023-03-11 12:31] LABS: Alanine Aminotransferase 21 IU/L (<35); Albumin 4.4 g/dL (3.5-5.0); Albumin Globulin Ratio 1.6 (1.0-2.8); Alkaline Phosphatase 52 U/L (38-126); Aspartate Aminotransferase 22 IU/L (14-36); BUN Creatinine Ratio 29.2 (6-22); Bilirubin Total 0.4 mg/dL (0.2-1.3); Blood Urea Nitrogen 19 mg/dL (7-17); Calcium 9.3 mg/dL (8.4-10.2); Carbon Dioxide 29 mmol/L (22-32); Chloride 99 mmol/L (98-107); Cholesterol 146 mg/dL (140-199); Estimated Glomerular Filt Rate > 60 mL/min (>60); Globulin 2.7 g/dL (1.7-4.1); Glucose 114 mg/dL (80-110); HDL Cholesterol 42 mg/dL (40-60); HEMOLYSIS < 15 (0-50); LDL Cholesterol Calculated 38 mg/dL (<100); Sodium 137 mmol/L (137-145); Total Protein 7.1 g/dL (6.3-8.2); Triglycerides 329 mg/dL (35-150)
== END ==
PROVIDERS: Family Provider Nurse Practitioner; PCP Nurse Practitioner; Referring Provider Family Medicine; Visit Provider Family Medicine
DX: E11.9 Type 2 diabetes mellitus without complications (principal)
CPT/HCPCS: 36415; 80053; 80061; 85025

== ENCOUNTER 2023-03-19 07:30 | Outpatient (RCR) | payer MEDICARE, BC, SELFPAY ==
--- NOTE | 2022-11-04 18:33 | PT.OIE ---
Current Diagnoses Bilateral primary osteoarthritis of knee (11/04/22) Difficulty in walking, not elsewhere classified (11/04/22) Weakness (11/04/22) Presence of left artificial knee joint (11/04/22) Past Medical History (Last Updated 03/06/22 @ 08:55 by Lance Tucker DO) Degenerative joint disease of knee Facet arthropathy, lumbar Osteoarthrosis Scoliosis Visit Care Team Role Provider Type SEDRICK Morejon Family Provider Non-Staff Primary Care Provider Specialty: Medical Address: [address] [place] [address], [place], [address] Email: Jc Etienne MD Attending Provider Non-Staff Referring Provider Specialty: Orthopedics Address: [address] [place] [address], [place], [address] Email: Physical Therapy Initial Evaluation PT-OP-A Visit Information Start: 10/28/22 10:48 Freq: Status: Active Protocol: Document 11/04/22 12:57 [facility] (Rec: 11/04/22 13:49 [facility] [id number]) Out-Patient Physical Therapy Visit Information Visit Information Visit Type Initial Evaluation Visit Note 07/30 Visit Start Time 13:01 Visit Stop Time 13:45 Total Visit Minutes 44 Visit Number 1 Number of OFFICE ELECTRICIAN Visits 0 PT-OP-B Current Condition Start: 10/28/22 10:48 Freq: Status: Active Protocol: Document 11/04/22 12:57 [facility] (Rec: 11/04/22 13:49 [facility] [id number]) Current Condition History of Current Condition Current Complaints L partial knee replacement History of Current Condition Pt reports she went to the ER to clarify no blood clot and it was negative. She is taking 1-2 pain pills every 8 hours typically. she started her celebrex back too. It is throbbing. She has been just doing APs and walking but wasn 't given instruction of what to do. Pt has an ice machine and it has been super helpful. She has had some trouble w/ compression stockings. Pt reports she has been using the walker in the house and has tried some w/o anything but almost fell when she turned too quick and there was a lot of pain. Treatment Goals Patient/Caregiver Goals get back to camping, get back to walks, be indep w/ADLs , get back to cooking PT-OP-C Subjective Start: 10/28/22 10:48 Freq: Status: Active Protocol: Document 11/04/22 12:57 [facility] (Rec: 11/04/22 [id number] Patient Questionnaires Lower Extremity Functional Scale LEFS Score 80 OP-PT Pain Assessment Location L knee pain Pain Location Details L ant knee and calf Description Aching,With Movement Frequency Constant Pain Aggravating Factors Standing Pain Alleviating Factors Cold,Medication PT-OP-G Mobility & Gait Start: 10/28/22 10:48 Freq: Status: Active Protocol: Document 11/04/22 12:57 [facility] (Rec: 11/04/22 13:49 [id number] OP Gait Assessment Comments Gait Comments dec stance time on LLE; amb w/ FWW PT-OP-K Range of Motion Start: 10/28/22 10:48 Freq: Status: Active Protocol: Document 11/04/22 12:57 [facility] (Rec: 11/04/22 13:49 [id number] Knee Goniometric Range of Motion Knee Right Flexion Active (degrees) 118 Extension Active (degrees) 0 Left Flexion Active (degrees) 65 Extension Active (degrees) 8 Comments pain both directions PT-OP-M Strength Start: 10/28/22 10:48 Freq: Status: Active Protocol: Document 11/04/22 12:57 [facility] (Rec: 11/04/22 13:49 [facility] [id number]) Hip Strength Hip Manual Muscle Testing Right Flexion (L2) 4 Good Abduction 4 Good Adduction 4+ Good+ External Rotation 4+ Good+ Internal Rotation 4+ Good+ Left Flexion (L2) 3+ Fair+ Abduction 3+ Fair+ Adduction 3+ Fair+ External Rotation 3+ Fair+ Internal Rotation 3+ Fair+ Knee Strength Knee Manual Muscle Testing Right Flexion (S2) 4+ Good+ Extension (L3) 4 Good Left Flexion (S2) 3+ Fair+ Extension (L3) 3+ Fair+ Ankle/Foot Strength Ankle and Foot Manual Muscle Testing Right Dorsiflexion (L4) 5 Normal Plantarflexion (S1) 5 Normal Left Dorsiflexion (L4) 5 Normal Plantarflexion (S1) 4 Good Comments PF tested seated B PT-OP-Q Treatments Start: 10/28/22 10:48 Freq: Status: Active Protocol: Document 11/04/22 12:57 [facility] (Rec: 11/04/22 13:49 [facility] [id number]) Therapeutic Exercises Supine Exercises HS sets Side left Reps/Minutes 5 sec x10 SAQ Side left Equipment Used pillow roll Reps/Minutes 3 secx10 SLR Side left Reps/Minutes 10 heel slides Side left Reps/Minutes 5 sec x10 APs Side bilateral Reps/Minutes 10 quad sets Side left Reps/Minutes 5 sec x10 Sitting Exercises LAQ Side left Reps/Minutes 5 sec x10 knee flex Side left Reps/Minutes 10 sec x3 Standing Exercises heel raises Side bilateral Reps/Minutes 10 PT-OP-T Assessment and Plan Start: 10/28/22 10:48 Freq: Status: Active Protocol: Document 11/04/22 12:57 [facility] (Rec: 11/04/22 13:49 [facility] [id number]) Physical Therapy Assessment Rehab Potential Rehabilitation Potential Good Evaluation Complexity Number of Personal Factors/Comorbidities 3 or More Number of Body Systems Impaired 4 or More Clinical Presentation at Evaluation Evolving Impairments Impairments Activity Tolerance,Balance, Functional Activities, Functional Mobility,Gait,Pain, Posture,ROM,Soft Tissue Mobility,Strength,Transfers Goals strength Short Term Goal (STG) Pt will be indep w/HEP STG Duration 12/02/22 Brickmason Contractor Goal (LTG) Pt will score at least 4+/5 LLE MMT to show improved strangth to allow pt to do activities like camping and walking and chores w/o difficulty LTG Duration 01/13/23 walking Short Term Goal (STG) Pt will be able to amb safely w/o AD in the house STG Duration 11/21/22 Long-Term Goal (LTG) Pt will be able to go for 1 mile walks w/o AD w/o pain greater than 2/10 LTG Duration 01/13/23 LEFS Impairment 13 Short Term Goal (STG) Pt will improve LEFS to at least 34/80 to show improved functional ability. STG Duration 12/12/22 Brickmason Contractor Goal (LTG) Pt will improve LEFS to at least 54/80 to show improved functional ability. LTG Duration 01/13/23 ROM Short Term Goal (STG) Pt will improve ROM to 0-100 STG Duration 12/07/22 Brickmason Contractor Goal (LTG) Pt will improve ROM to 0-125 to allow good ROM for stairs and gait. LTG Duration 01/13/23 Assessment Summary Assessment Pt presents 1 week after L uni knee with good pain control w /meds but pt did not know what she was to do. She has limited ROM at this time but has not been doing any exercise.She is very motivated to get stronger and imrpove ROM and was given HEP today to start. She attempted cane amb but was a little unsteady so encouraged to use walker and would revisit cane amb next time. She has good rehab potential and would benefit from skilled PT to imrpove her functional mobility and independence and along w/B knee ROM and strength along w/ gait. She has R knee OA also and will require treatment fo this side in order to improve pt gait and mobility. Physical Therapy Plan Frequency and Duration Frequency of Treatment 2x/Week Duration of treatment (weeks) 10 Plan of Care Start Date 11/04/22 Plan of Care End Date 01/13/23 Therapeutic Interventions Therapeutic Interventions Balance Training,Gait Training ,Home Exercise Program,Joint Mobilizations,Manual Therapy, Neuromuscular Re-education, Orthotic/Prosthetic Management ,Patient/Caregiver Education, Self-Care/Home Management,Soft Tissue Mobilization,Taping, Therapeutic Activities, Therapeutic Exercises Modalities Cold Pack/Ice Massage,Electric Stimulation,Hot Packs, Ultrasound Next Visit Focus/Plan Next Note Type Treatment Note Next Visit Plan review exercises, stepper, leg press
--- NOTE | 2022-11-04 18:33 | PT.OPPOC ---
Physical, Occupational & Speech Therapy At [facility] Current Diagnoses Bilateral primary osteoarthritis of knee (11/04/22) Difficulty in walking, not elsewhere classified (11/04/22) Weakness (11/04/22) Presence of left artificial knee joint (11/04/22) Visit Care Team Role Provider Type SEDRICK Morejon Family Provider Non-Staff Primary Care Provider Specialty: Medical Address: [address] [place] [address], [place], [address] Email: Jc Etienne MD Attending Provider Non-Staff Referring Provider Specialty: Orthopedics Address: [address] [place] [address] , [place], [address] Email: Plan Of Care PT-OP-T Assessment and Plan Start: 10/28/22 10:48 Freq: Status: Active Protocol: Document 11/04/22 12:57 [facility] (Rec: 11/04/22 13:49 [facility] [id number]) Physical Therapy Assessment Rehab Potential Rehabilitation Potential Good Evaluation Complexity Number of Personal Factors/Comorbidities 3 or More Number of Body Systems Impaired 4 or More Clinical Presentation at Evaluation Evolving Impairments Impairments Activity Tolerance,Balance, Functional Activities, Functional Mobility,Gait,Pain, Posture,ROM,Soft Tissue Mobility,Strength,Transfers Goals strength Short Term Goal (STG) Pt will be indep w/HEP STG Duration 12/02/22 Correction Goal (LTG) Pt will score at least 4+/5 LLE MMT to show improved strangth to allow pt to do activities like camping and walking and chores w/o difficulty LTG Duration 01/13/23 walking Short Term Goal (STG) Pt will be able to amb safely w/o AD in the house STG Duration 11/21/22 Correction Goal (LTG) Pt will be able to go for 1 mile walks w/o AD w/o pain greater than 2/10 LTG Duration 01/13/23 LEFS Impairment 13 Short Term Goal (STG) Pt will improve LEFS to at least 34/80 to show improved functional ability. STG Duration 12/12/22 Insert Operator Goal (LTG) Pt will improve LEFS to at least 54/80 to show improved functional ability. LTG Duration 01/13/23 ROM Short Term Goal (STG) Pt will improve ROM to 0-100 STG Duration 12/07/22 Correction Goal (LTG) Pt will improve ROM to 0-125 to allow good ROM for stairs and gait. LTG Duration 01/13/23 Assessment Summary Assessment Pt presents 1 week after L uni knee with good pain control w /meds but pt did not know what she was to do. She has limited ROM at this time but has not been doing any exercise.She is very motivated to get stronger and imrpove ROM and was given HEP today to start. She attempted cane amb but was a little unsteady so encouraged to use walker and would revisit cane amb next time. She has good rehab potential and would benefit from skilled PT to imrpove her functional mobility and independence and along w/B knee ROM and strength along w/ gait. She has R knee OA also and will require treatment fo this side in order to improve pt gait and mobility. Physical Therapy Plan Frequency and Duration Frequency of Treatment 2x/Week Duration of treatment (weeks) 10 Plan of Care Start Date 11/04/22 Plan of Care End Date 01/13/23 Therapeutic Interventions Therapeutic Interventions Balance Training,Gait Training ,Home Exercise Program,Joint Mobilizations,Manual Therapy, Neuromuscular Re-education, Orthotic/Prosthetic Management ,Patient/Caregiver Education, Self-Care/Home Management,Soft Tissue Mobilization,Taping, Therapeutic Activities, Therapeutic Exercises Modalities Cold Pack/Ice Massage,Electric Stimulation,Hot Packs, Ultrasound Next Visit Focus/Plan Next Note Type Treatment Note Next Visit Plan review exercises, stepper, leg press Plan of Care Dates Plan of Care Start Date 11/04/22 Plan of Care End Date 01/13/23 Electronically Signed by: Fernanda Novak, PT 11/04/22 3708 If you are in agreement with this Plan of Care, please return a signed and dated copy. I have reviewed this Plan of Care and certify that the skilled therapy services above are required to meet the patient?s needs. Physician Signature Date Printed Name and Credentials Clinical Instructor Signature Printed Name and Credentials
--- NOTE | 2022-11-06 14:32 | PT.OTN ---
Current Diagnoses Bilateral primary osteoarthritis of knee (11/06/22) Difficulty in walking, not elsewhere classified (11/06/22) Weakness (11/06/22) Presence of left artificial knee joint (11/06/22) Physical Therapy Treatment Note PT-OP-A Visit Information Start: 10/28/22 10:48 Freq: Status: Active Protocol: Document 11/06/22 13:54 [facility] (Rec: 11/06/22 14:32 [facility] [id number]) Out-Patient Physical Therapy Visit Information Visit Information Visit Type Treatment Note Visit Note 08/30 Visit Start Time 13:52 Visit Stop Time 14:30 Total Visit Minutes 38 Visit Number 2 Number of SUPERVISOR COLOR MAKING Visits 0 PT-OP-B Current Condition Start: 10/28/22 10:48 Freq: Status: Active Protocol: Document 11/04/22 12:57 [facility] (Rec: 11/04/22 13:49 [facility] [id number]) Current Condition History of Current Condition Current Complaints L partial knee replacement History of Current Condition Pt reports she went to the ER to clarify no blood clot and it was negative. She is taking 1-2 pain pills every 8 hours typically. she started her celebrex back too. It is throbbing. She has been just doing APs and walking but wasn 't given instruction of what to do. Pt has an ice machine and it has been super helpful. She has had some trouble w/ compression stockings. Pt reports she has been using the walker in the house and has tried some w/o anything but almost fell when she turned too quick and there was a lot of pain. Treatment Goals Patient/Caregiver Goals get back to camping, get back to walks, be indep w/ADLs , get back to cooking PT-OP-C Subjective Start: 10/28/22 10:48 Freq: Status: Active Protocol: Document 11/06/22 13:54 [facility] (Rec: 11/06/22 14:32 [facility] [id number]) OP-PT Subjective Patient Comments Patient Comments Pt reports she went to bed after last session and hasn't been moving much PT-OP-G Mobility & Gait Start: 10/28/22 10:48 Freq: Status: Active Protocol: Document 11/04/22 12:57 [facility] (Rec: 11/04/22 13:49 [facility] [id number]) OP Gait Assessment Comments Gait Comments dec stance time on LLE; amb w/ FWW PT-OP-K Range of Motion Start: 10/28/22 10:48 Freq: Status: Active Protocol: Document 11/04/22 12:57 [facility] (Rec: 11/04/22 13:49 [facility] [id number]) Knee Goniometric Range of Motion Knee Right Flexion Active (degrees) 118 Extension Active (degrees) 0 Left Flexion Active (degrees) 65 Extension Active (degrees) 8 Comments pain both directions PT-OP-M Strength Start: 10/28/22 10:48 Freq: Status: Active Protocol: Document 11/04/22 12:57 [facility] (Rec: 11/04/22 13:49 [facility] [id number]) Hip Strength Hip Manual Muscle Testing Right Flexion (L2) 4 Good Abduction 4 Good Adduction 4+ Good+ External Rotation 4+ Good+ Internal Rotation 4+ Good+ Left Flexion (L2) 3+ Fair+ Abduction 3+ Fair+ Adduction 3+ Fair+ External Rotation 3+ Fair+ Internal Rotation 3+ Fair+ Knee Strength Knee Manual Muscle Testing Right Flexion (S2) 4+ Good+ Extension (L3) 4 Good Left Flexion (S2) 3+ Fair+ Extension (L3) 3+ Fair+ Ankle/Foot Strength Ankle and Foot Manual Muscle Testing Right Dorsiflexion (L4) 5 Normal Plantarflexion (S1) 5 Normal Left Dorsiflexion (L4) 5 Normal Plantarflexion (S1) 4 Good Comments PF tested seated B PT-OP-Q Treatments Start: 10/28/22 10:48 Freq: Status: Active Protocol: Document 11/06/22 13:54 [facility] (Rec: 11/06/22 14:32 [facility] [id number]) Cardio Equipment Recumbent Stepper (Sci-Fit) Duration (Minutes) 6 Resistance 1 Seat Position 10 Gym Equipment Shuttle Recovery Bilateral Squats Resistance 50 Shuttle Recovery Platform Stable Reps/Time 15 cues for slow and controlled Therapeutic Ball supine Exercise Details B knee flex Ball Size/Color 55 cm Body Position Supine Reps/Duration 5 sec x10 Therapeutic Exercises Supine Exercises stretch Supine Exercise Name PT assisted Side left Reps/Minutes 1 min DF Side left Equipment Used L2 Reps/Minutes 20 passive ext Side right Equipment Used towel Reps/Minutes 1 min HS sets Side left Reps/Minutes 5 sec x10 SAQ Side left Equipment Used pillow roll Reps/Minutes 3 secx10 SLR Side left Reps/Minutes 10 heel slides Side left Reps/Minutes 5 sec x12 APs Side bilateral Reps/Minutes 20 quad sets Side left Reps/Minutes 5 sec x10 Sitting Exercises LAQ Side left Reps/Minutes 5 sec x12 knee flex Sitting Exercise Name w/ scoot fwd Side left Reps/Minutes 10 sec x3 Standing Exercises stretch Standing Exercise Name RAMYA Side bilateral Reps/Minutes 2 x30s heel raises Side bilateral Reps/Minutes 10 PT-OP-T Assessment and Plan Start: 10/28/22 10:48 Freq: Status: Active Protocol: Document 11/06/22 13:54 [facility] (Rec: 11/06/22 14:32 [facility] [id number]) Physical Therapy Assessment Goals strength Short Term Goal (STG) Pt will be indep w/HEP STG Duration 12/02/22 Clerical Assigner Goal (LTG) Pt will score at least 4+/5 LLE MMT to show improved strangth to allow pt to do activities like camping and walking and chores w/o difficulty LTG Duration 01/13/23 walking Short Term Goal (STG) Pt will be able to amb safely w/o AD in the house STG Duration 11/21/22 Senior Living Goal (LTG) Pt will be able to go for 1 mile walks w/o AD w/o pain greater than 2/10 LTG Duration 01/13/23 LEFS Impairment 13 Short Term Goal (STG) Pt will improve LEFS to at least 34/80 to show improved functional ability. STG Duration 12/12/22 Clerical Assigner Goal (LTG) Pt will improve LEFS to at least 54/80 to show improved functional ability. LTG Duration 01/13/23 ROM Short Term Goal (STG) Pt will improve ROM to 0-100 STG Duration 12/07/22 Clerical Assigner Goal (LTG) Pt will improve ROM to 0-125 to allow good ROM for stairs and gait. LTG Duration 01/13/23 Assessment Summary Assessment Pt did well w/exercises today w/min cues. encouraged to do hep and small walks. ROM 8-74 after exercises. She does need encouragement to push herself w/exercises but tolertates them well and came in w/o AD w /just some mild stiffness in gait d/t dec knee flex and dec push off. Physical Therapy Plan Frequency and Duration Frequency of Treatment 2x/Week Duration of treatment (weeks) 10 Plan of Care Start Date 11/04/22 Plan of Care End Date 01/13/23 Next Visit Focus/Plan Next Note Type Treatment Note Next Visit Plan review exercises, stepper, leg press, work on gait
--- NOTE | 2022-11-12 13:13 | PT-OP ANOTE ---
Pt arrived to appt and noted she just vomitted. Pt notes she has a MD appt later but has been feeling nauseas for a couple days. PT told pt to hold on PT until she feels better and educated pt to cont ROM exercises at home.
--- NOTE | 2022-11-14 13:46 | PT.OTN ---
Current Diagnoses Bilateral primary osteoarthritis of knee (11/14/22) Difficulty in walking, not elsewhere classified (11/14/22) Weakness (11/14/22) Presence of left artificial knee joint (11/14/22) Physical Therapy Treatment Note PT-OP-A Visit Information Start: 10/28/22 10:48 Freq: Status: Active Protocol: Document 11/14/22 13:03 [facility] (Rec: 11/14/22 13:46 [facility] [id number]) Out-Patient Physical Therapy Visit Information Visit Information Visit Type Treatment Note Visit Note 09/27 Visit Start Time 13:01 Visit Stop Time 13:45 Total Visit Minutes 44 Visit Number 3 Number of GARDEN EQUIPMENT MECHANIC Visits 0 PT-OP-B Current Condition Start: 10/28/22 10:48 Freq: Status: Active Protocol: Document 11/04/22 12:57 [facility] (Rec: 11/04/22 13:49 [facility] [id number]) Current Condition History of Current Condition Current Complaints L partial knee replacement History of Current Condition Pt reports she went to the ER to clarify no blood clot and it was negative. She is taking 1-2 pain pills every 8 hours typically. she started her celebrex back too. It is throbbing. She has been just doing APs and walking but wasn 't given instruction of what to do. Pt has an ice machine and it has been super helpful. She has had some trouble w/ compression stockings. Pt reports she has been using the walker in the house and has tried some w/o anything but almost fell when she turned too quick and there was a lot of pain. Treatment Goals Patient/Caregiver Goals get back to camping, get back to walks, be indep w/ADLs , get back to cooking PT-OP-C Subjective Start: 10/28/22 10:48 Freq: Status: Active Protocol: Document 11/14/22 13:03 [facility] (Rec: 11/14/22 13:46 [facility] [id number]) OP-PT Subjective Patient Comments Patient Comments Pt reports she saw ortho MD and he said everything looks good. Reports doing exercises at least 1.5x a day PT-OP-G Mobility & Gait Start: 10/28/22 10:48 Freq: Status: Active Protocol: Document 11/04/22 12:57 [facility] (Rec: 11/04/22 13:49 [facility] [id number]) OP Gait Assessment Comments Gait Comments dec stance time on LLE; amb w/ FWW PT-OP-K Range of Motion Start: 10/28/22 10:48 Freq: Status: Active Protocol: Document 11/04/22 12:57 [facility] (Rec: 11/04/22 13:49 [facility] [id number]) Knee Goniometric Range of Motion Knee Right Flexion Active (degrees) 118 Extension Active (degrees) 0 Left Flexion Active (degrees) 65 Extension Active (degrees) 8 Comments pain both directions PT-OP-M Strength Start: 10/28/22 10:48 Freq: Status: Active Protocol: Document 11/04/22 12:57 [facility] (Rec: 11/04/22 13:49 [facility] [id number]) Hip Strength Hip Manual Muscle Testing Right Flexion (L2) 4 Good Abduction 4 Good Adduction 4+ Good+ External Rotation 4+ Good+ Internal Rotation 4+ Good+ Left Flexion (L2) 3+ Fair+ Abduction 3+ Fair+ Adduction 3+ Fair+ External Rotation 3+ Fair+ Internal Rotation 3+ Fair+ Knee Strength Knee Manual Muscle Testing Right Flexion (S2) 4+ Good+ Extension (L3) 4 Good Left Flexion (S2) 3+ Fair+ Extension (L3) 3+ Fair+ Ankle/Foot Strength Ankle and Foot Manual Muscle Testing Right Dorsiflexion (L4) 5 Normal Plantarflexion (S1) 5 Normal Left Dorsiflexion (L4) 5 Normal Plantarflexion (S1) 4 Good Comments PF tested seated B PT-OP-Q Treatments Start: 10/28/22 10:48 Freq: Status: Active Protocol: Document 11/14/22 13:03 [facility] (Rec: 11/14/22 13:46 [facility] [id number]) Cardio Equipment Recumbent Stepper (Sci-Fit) Duration (Minutes) 6 Resistance 1 Seat Position 9-8 Gym Equipment Shuttle Recovery Bilateral Squats Resistance 50 Shuttle Recovery Platform Stable Reps/Time 15 cues for slow and controlled Therapeutic Ball supine Exercise Details B knee flex Ball Size/Color 55 cm Body Position Supine Reps/Duration 5 sec x10 Therapeutic Exercises Supine Exercises passive ext Side right Equipment Used pillow roll under ankle Reps/Minutes 2 min HS sets Side left Reps/Minutes 5 sec x10 SAQ Side left Equipment Used pillow roll Reps/Minutes 5 secx10 SLR Side left Reps/Minutes 10 heel slides Side left Reps/Minutes 10 (5 APs each pull up) Comments APs during holds quad sets Side left Reps/Minutes 5 sec x8 Sitting Exercises LAQ Side left Equipment Used 2nd set w/orange tband Reps/Minutes 5 sec x4; 10 w/band knee flex Sitting Exercise Name w/ scoot fwd Side left Reps/Minutes 10 sec x3 Standing Exercises sit to stand Side bilateral Reps/Minutes 10 Comments no hands stretch Standing Exercise Name stair Side bilateral Reps/Minutes 30 sec Comments w/rail heel raises Side bilateral Reps/Minutes 5 Manual Therapy Treatment Soft Tissue Mobilization post Body Location calf and HS Mobilization Type Rolling Intensity/Depth Moderate Body Position Supine Comments APs PT-OP-T Assessment and Plan Start: 10/28/22 10:48 Freq: Status: Active Protocol: Document 11/14/22 13:03 [facility] (Rec: 11/14/22 13:46 [facility] [id number]) Physical Therapy Assessment Goals strength Short Term Goal (STG) Pt will be indep w/HEP STG Duration 12/02/22 [facility] Goal (LTG) Pt will score at least 4+/5 LLE MMT to show improved strangth to allow pt to do activities like camping and walking and chores w/o difficulty LTG Duration 01/13/23 walking Short Term Goal (STG) Pt will be able to amb safely w/o AD in the house STG Duration 11/21/22 [facility] Goal (LTG) Pt will be able to go for 1 mile walks w/o AD w/o pain greater than 2/10 LTG Duration 01/13/23 LEFS Impairment 13 Short Term Goal (STG) Pt will improve LEFS to at least 34/80 to show improved functional ability. STG Duration 12/12/22 [facility] Goal (LTG) Pt will improve LEFS to at least 54/80 to show improved functional ability. LTG Duration 01/13/23 ROM Short Term Goal (STG) Pt will improve ROM to 0-100 STG Duration 12/07/22 Pantograph Machine Set Up Operator Goal (LTG) Pt will improve ROM to 0-125 to allow good ROM for stairs and gait. LTG Duration 01/13/23 Assessment Summary Assessment Pt scar looks good re: healing and bruising around knee is subsiding. Pt did well with very min cueing for exercises. ROM today 4-84 deg. Physical Therapy Plan Frequency and Duration Frequency of Treatment 2x/Week Duration of treatment (weeks) 10 Plan of Care Start Date 11/04/22 Plan of Care End Date 01/13/23 Next Visit Focus/Plan Next Note Type Treatment Note Next Visit Plan review exercises and progress as needed, stepper, leg press, work on gait
--- NOTE | 2022-11-19 13:42 | PT.OTN ---
Current Diagnoses Bilateral primary osteoarthritis of knee (11/19/22) Difficulty in walking, not elsewhere classified (11/19/22) Weakness (11/19/22) Presence of left artificial knee joint (11/19/22) Physical Therapy Treatment Note PT-OP-A Visit Information Start: 10/28/22 10:48 Freq: Status: Active Protocol: Document 11/19/22 12:50 [facility] (Rec: 11/19/22 13:42 [facility] [id number]) Out-Patient Physical Therapy Visit Information Visit Information Visit Type Treatment Note Visit Note 10/28 Visit Start Time 12:48 Visit Stop Time 13:30 Total Visit Minutes 42 Visit Number 4 Number of DOCUMENTATION ANALYST Visits 0 PT-OP-B Current Condition Start: 10/28/22 10:48 Freq: Status: Active Protocol: Document 11/04/22 12:57 [facility] (Rec: 11/04/22 13:49 [facility] [id number]) Current Condition History of Current Condition Current Complaints L partial knee replacement History of Current Condition Pt reports she went to the ER to clarify no blood clot and it was negative. She is taking 1-2 pain pills every 8 hours typically. she started her celebrex back too. It is throbbing. She has been just doing APs and walking but wasn 't given instruction of what to do. Pt has an ice machine and it has been super helpful. She has had some trouble w/ compression stockings. Pt reports she has been using the walker in the house and has tried some w/o anything but almost fell when she turned too quick and there was a lot of pain. Treatment Goals Patient/Caregiver Goals get back to camping, get back to walks, be indep w/ADLs , get back to cooking PT-OP-C Subjective Start: 10/28/22 10:48 Freq: Status: Active Protocol: Document 11/19/22 12:50 [facility] (Rec: 11/19/22 13:42 [facility] [id number]) OP-PT Subjective Patient Comments Patient Comments Pt reports she started driving and did ok. SHe was exhausted the other day after doing 6 hrs on her feet with cooking etc. Pt reports her back was hurting. She walked down to the end of the streeet and knee felt ok but back was sore She rolls in bed sometimes she wakes up d/t feeling like something is tearing but gets better. Pt reports she felt much better in calf after last session PT-OP-G Mobility & Gait Start: 10/28/22 10:48 Freq: Status: Active Protocol: Document 11/04/22 12:57 [facility] (Rec: 11/04/22 13:49 [facility] [id number]) OP Gait Assessment Comments Gait Comments dec stance time on LLE; amb w/ FWW PT-OP-K Range of Motion Start: 10/28/22 10:48 Freq: Status: Active Protocol: Document 11/04/22 12:57 [facility] (Rec: 11/04/22 13:49 [facility] [id number]) Knee Goniometric Range of Motion Knee Right Flexion Active (degrees) 118 Extension Active (degrees) 0 Left Flexion Active (degrees) 65 Extension Active (degrees) 8 Comments pain both directions PT-OP-M Strength Start: 10/28/22 10:48 Freq: Status: Active Protocol: Document 11/04/22 12:57 [facility] (Rec: 11/04/22 13:49 [facility] [id number]) Hip Strength Hip Manual Muscle Testing Right Flexion (L2) 4 Good Abduction 4 Good Adduction 4+ Good+ External Rotation 4+ Good+ Internal Rotation 4+ Good+ Left Flexion (L2) 3+ Fair+ Abduction 3+ Fair+ Adduction 3+ Fair+ External Rotation 3+ Fair+ Internal Rotation 3+ Fair+ Knee Strength Knee Manual Muscle Testing Right Flexion (S2) 4+ Good+ Extension (L3) 4 Good Left Flexion (S2) 3+ Fair+ Extension (L3) 3+ Fair+ Ankle/Foot Strength Ankle and Foot Manual Muscle Testing Right Dorsiflexion (L4) 5 Normal Plantarflexion (S1) 5 Normal Left Dorsiflexion (L4) 5 Normal Plantarflexion (S1) 4 Good Comments PF tested seated B PT-OP-Q Treatments Start: 10/28/22 10:48 Freq: Status: Active Protocol: Document 11/19/22 12:50 [facility] (Rec: 11/19/22 13:42 [facility] [id number]) Cardio Equipment Recumbent Elliptical (Biodex) Duration (Minutes) 6 Resistance 1 Seat Position 7-5 Gym Equipment Shuttle Recovery Unilateral Squats Details B Resistance 37# Shuttle Recovery Platform Stable Reps/Time 12 Bilateral Squats Resistance 75# Shuttle Recovery Platform Stable Reps/Time 15 cues for slow and controlled Shuttle Balance red clips Comments fwd & side: WBOS & NBOS fwd :staggered stance B Therapeutic Exercises Supine Exercises passive ext Side right Equipment Used pillow roll under ankle Reps/Minutes 2 min Standing Exercises step up Standing Exercise Name 6 in step Side left Equipment Used figners on rail Reps/Minutes 10 step down Standing Exercise Name 4 in step w/backwards set up Side left Equipment Used rail Reps/Minutes 10 sit to stand Standing Exercise Name cues for control Side bilateral Reps/Minutes 10 Comments no hands Manual Therapy Treatment Soft Tissue Mobilization post Body Location ITB and HS Mobilization Type Rolling Intensity/Depth Moderate Body Position Supine Comments APs and active HS stretch Joint Mobilizations patellofemoral Joint L Direction sup, med, inf Grade III Comments gloves worn PT-OP-T Assessment and Plan Start: 10/28/22 10:48 Freq: Status: Active Protocol: Document 11/19/22 12:50 [facility] (Rec: 11/19/22 13:42 [facility] [id number]) Physical Therapy Assessment Goals strength Short Term Goal (STG) Pt will be indep w/HEP STG Duration 12/02/22 Senior Living Goal (LTG) Pt will score at least 4+/5 LLE MMT to show improved strangth to allow pt to do activities like camping and walking and chores w/o difficulty LTG Duration 01/13/23 walking Short Term Goal (STG) Pt will be able to amb safely w/o AD in the house STG Duration 11/21/22 Senior Living Goal (LTG) Pt will be able to go for 1 mile walks w/o AD w/o pain greater than 2/10 LTG Duration 01/13/23 LEFS Impairment 13 Short Term Goal (STG) Pt will improve LEFS to at least 34/80 to show improved functional ability. STG Duration 12/12/22 Correctional Treatment Specialist Goal (LTG) Pt will improve LEFS to at least 54/80 to show improved functional ability. LTG Duration 01/13/23 ROM Short Term Goal (STG) Pt will improve ROM to 0-100 STG Duration 12/07/22 Correctional Treatment Specialist Goal (LTG) Pt will improve ROM to 0-125 to allow good ROM for stairs and gait. LTG Duration 01/13/23 Assessment Summary Assessment Pt started with 3-85 deg and improved to 90 deg after manual.S he was encouraged to push her ROM at home more. she does well overall with exercises. Physical Therapy Plan Frequency and Duration Frequency of Treatment 2x/Week Duration of treatment (weeks) 10 Plan of Care Start Date 11/04/22 Plan of Care End Date 01/13/23 Next Visit Focus/Plan Next Note Type Treatment Note Next Visit Plan review exercises and progress as needed, stepper, leg press, work on gait
--- NOTE | 2022-11-20 09:04 | PT.OTN ---
Current Diagnoses Bilateral primary osteoarthritis of knee (11/20/22) Difficulty in walking, not elsewhere classified (11/20/22) Weakness (11/20/22) Presence of left artificial knee joint (11/20/22) Physical Therapy Treatment Note PT-OP-A Visit Information Start: 10/28/22 10:48 Freq: Status: Active Protocol: Document 11/20/22 08:20 [facility] (Rec: 11/20/22 09:04 [facility] [id number]) Out-Patient Physical Therapy Visit Information Visit Information Visit Type Treatment Note Visit Note 11/27 Visit Start Time 08:19 Visit Stop Time 08:59 Total Visit Minutes 40 Visit Number 5 Number of SUPERVISOR RECLAMATION Visits 0 PT-OP-B Current Condition Start: 10/28/22 10:48 Freq: Status: Active Protocol: Document 11/04/22 12:57 [facility] (Rec: 11/04/22 13:49 [facility] [id number]) Current Condition History of Current Condition Current Complaints L partial knee replacement History of Current Condition Pt reports she went to the ER to clarify no blood clot and it was negative. She is taking 1-2 pain pills every 8 hours typically. she started her celebrex back too. It is throbbing. She has been just doing APs and walking but wasn 't given instruction of what to do. Pt has an ice machine and it has been super helpful. She has had some trouble w/ compression stockings. Pt reports she has been using the walker in the house and has tried some w/o anything but almost fell when she turned too quick and there was a lot of pain. Treatment Goals Patient/Caregiver Goals get back to camping, get back to walks, be indep w/ADLs , get back to cooking PT-OP-C Subjective Start: 10/28/22 10:48 Freq: Status: Active Protocol: Document 11/20/22 08:20 [facility] (Rec: 11/20/22 09:04 [facility] [id number]) OP-PT Subjective Patient Comments Patient Comments Pt reports she felt okay after yesterday in her knee but she was just tired. She has been working on squatting at home PT-OP-G Mobility & Gait Start: 10/28/22 10:48 Freq: Status: Active Protocol: Document 11/04/22 12:57 [facility] (Rec: 11/04/22 13:49 [facility] [id number]) OP Gait Assessment Comments Gait Comments dec stance time on LLE; amb w/ FWW PT-OP-K Range of Motion Start: 10/28/22 10:48 Freq: Status: Active Protocol: Document 11/04/22 12:57 [facility] (Rec: 11/04/22 13:49 [facility] [id number]) Knee Goniometric Range of Motion Knee Right Flexion Active (degrees) 118 Extension Active (degrees) 0 Left Flexion Active (degrees) 65 Extension Active (degrees) 8 Comments pain both directions PT-OP-M Strength Start: 10/28/22 10:48 Freq: Status: Active Protocol: Document 11/04/22 12:57 [facility] (Rec: 11/04/22 13:49 [facility] [id number]) Hip Strength Hip Manual Muscle Testing Right Flexion (L2) 4 Good Abduction 4 Good Adduction 4+ Good+ External Rotation 4+ Good+ Internal Rotation 4+ Good+ Left Flexion (L2) 3+ Fair+ Abduction 3+ Fair+ Adduction 3+ Fair+ External Rotation 3+ Fair+ Internal Rotation 3+ Fair+ Knee Strength Knee Manual Muscle Testing Right Flexion (S2) 4+ Good+ Extension (L3) 4 Good Left Flexion (S2) 3+ Fair+ Extension (L3) 3+ Fair+ Ankle/Foot Strength Ankle and Foot Manual Muscle Testing Right Dorsiflexion (L4) 5 Normal Plantarflexion (S1) 5 Normal Left Dorsiflexion (L4) 5 Normal Plantarflexion (S1) 4 Good Comments PF tested seated B PT-OP-Q Treatments Start: 10/28/22 10:48 Freq: Status: Active Protocol: Document 11/20/22 08:20 [facility] (Rec: 11/20/22 09:04 [facility] [id number]) Cardio Equipment Recumbent Stepper (Sci-Fit) Duration (Minutes) 7 Resistance 1 Seat Position 8-6 Gym Equipment Shuttle Recovery Unilateral Squats Details B Resistance 37# Shuttle Recovery Platform Stable Reps/Time 12 Bilateral Squats Resistance 87# Shuttle Recovery Platform Stable Reps/Time 15 cues for slow and controlled Shuttle Balance red clips Comments fwd & side: WBOS & NBOS fwd :staggered stance B Therapeutic Exercises Standing Exercises squat Standing Exercise Name 1/2 over chair Side bilateral Reps/Minutes 10 Comments cues for butt back and inc range step up Standing Exercise Name 6 in step Side left Equipment Used no rail Reps/Minutes 10 step down Standing Exercise Name 4 in step w/backwards set up Side left Equipment Used rail Reps/Minutes 10 stretch Standing Exercise Name stair Side bilateral Reps/Minutes 30 sec Comments w/rail Manual Therapy Treatment Soft Tissue Mobilization post Body Location ITB and HS Mobilization Type Rolling Intensity/Depth Moderate Body Position Supine Comments APs and active HS stretch Joint Mobilizations tibfib Joint proximal L distraction and PA Grade II patellofemoral Joint L Direction sup, med, inf Grade III Comments gloves worn PT-OP-T Assessment and Plan Start: 10/28/22 10:48 Freq: Status: Active Protocol: Document 11/20/22 08:20 [facility] (Rec: 11/20/22 09:04 [facility] [id number]) Physical Therapy Assessment Goals strength Short Term Goal (STG) Pt will be indep w/HEP STG Duration 12/02/22 Dumper Operator Goal (LTG) Pt will score at least 4+/5 LLE MMT to show improved strangth to allow pt to do activities like camping and walking and chores w/o difficulty LTG Duration 01/13/23 walking Short Term Goal (STG) Pt will be able to amb safely w/o AD in the house STG Duration 11/21/22 Dumper Operator Goal (LTG) Pt will be able to go for 1 mile walks w/o AD w/o pain greater than 2/10 LTG Duration 01/13/23 LEFS Impairment 13 Short Term Goal (STG) Pt will improve LEFS to at least 34/80 to show improved functional ability. STG Duration 12/12/22 Prison Goal (LTG) Pt will improve LEFS to at least 54/80 to show improved functional ability. LTG Duration 01/13/23 ROM Short Term Goal (STG) Pt will improve ROM to 0-100 STG Duration 12/07/22 Dumper Operator Goal (LTG) Pt will improve ROM to 0-125 to allow good ROM for stairs and gait. LTG Duration 01/13/23 Assessment Summary Assessment Pt had about 5-85 deg ROM after exercises today. She is encouraged to be pushing her ROM w/her exercises at home. She did tolerate more resistance and beign pulled secretary receptionist stepper today. Physical Therapy Plan Frequency and Duration Frequency of Treatment 2x/Week Duration of treatment (weeks) 10 Plan of Care Start Date 11/04/22 Plan of Care End Date 01/13/23 Next Visit Focus/Plan Next Note Type Treatment Note Next Visit Plan review exercises and progress as needed, stepper, leg press, work on gait
--- NOTE | 2022-11-26 13:51 | PT.OTN ---
Current Diagnoses Bilateral primary osteoarthritis of knee (11/26/22) Difficulty in walking, not elsewhere classified (11/26/22) Weakness (11/26/22) Presence of left artificial knee joint (11/26/22) Physical Therapy Treatment Note PT-OP-A Visit Information Start: 10/28/22 10:48 Freq: Status: Active Protocol: Document 11/26/22 12:51 [facility] (Rec: 11/26/22 13:50 [facility] [id number]) Out-Patient Physical Therapy Visit Information Visit Information Visit Type Treatment Note Visit Note 12/28 Visit Start Time 12:49 Visit Stop Time 13:40 Total Visit Minutes 51 Visit Number 6 Number of TEXTILE TECHNOLOGIST Visits 0 PT-OP-B Current Condition Start: 10/28/22 10:48 Freq: Status: Active Protocol: Document 11/04/22 12:57 [facility] (Rec: 11/04/22 13:49 [facility] [id number]) Current Condition History of Current Condition Current Complaints L partial knee replacement History of Current Condition Pt reports she went to the ER to clarify no blood clot and it was negative. She is taking 1-2 pain pills every 8 hours typically. she started her celebrex back too. It is throbbing. She has been just doing APs and walking but wasn 't given instruction of what to do. Pt has an ice machine and it has been super helpful. She has had some trouble w/ compression stockings. Pt reports she has been using the walker in the house and has tried some w/o anything but almost fell when she turned too quick and there was a lot of pain. Treatment Goals Patient/Caregiver Goals get back to camping, get back to walks, be indep w/ADLs , get back to cooking PT-OP-C Subjective Start: 10/28/22 10:48 Freq: Status: Active Protocol: Document 11/26/22 12:51 [facility] (Rec: 11/26/22 13:50 [facility] [id number]) OP-PT Subjective Patient Comments Patient Comments Pt reports B knees and back have been sore since last session. Pt reports she has not iced PT-OP-G Mobility & Gait Start: 10/28/22 10:48 Freq: Status: Active Protocol: Document 11/04/22 12:57 [facility] (Rec: 11/04/22 13:49 [facility] [id number]) OP Gait Assessment Comments Gait Comments dec stance time on LLE; amb w/ FWW PT-OP-K Range of Motion Start: 10/28/22 10:48 Freq: Status: Active Protocol: Document 11/04/22 12:57 [facility] (Rec: 11/04/22 13:49 [facility] [id number]) Knee Goniometric Range of Motion Knee Right Flexion Active (degrees) 118 Extension Active (degrees) 0 Left Flexion Active (degrees) 65 Extension Active (degrees) 8 Comments pain both directions PT-OP-M Strength Start: 10/28/22 10:48 Freq: Status: Active Protocol: Document 11/04/22 12:57 [facility] (Rec: 11/04/22 13:49 [facility] [id number]) Hip Strength Hip Manual Muscle Testing Right Flexion (L2) 4 Good Abduction 4 Good Adduction 4+ Good+ External Rotation 4+ Good+ Internal Rotation 4+ Good+ Left Flexion (L2) 3+ Fair+ Abduction 3+ Fair+ Adduction 3+ Fair+ External Rotation 3+ Fair+ Internal Rotation 3+ Fair+ Knee Strength Knee Manual Muscle Testing Right Flexion (S2) 4+ Good+ Extension (L3) 4 Good Left Flexion (S2) 3+ Fair+ Extension (L3) 3+ Fair+ Ankle/Foot Strength Ankle and Foot Manual Muscle Testing Right Dorsiflexion (L4) 5 Normal Plantarflexion (S1) 5 Normal Left Dorsiflexion (L4) 5 Normal Plantarflexion (S1) 4 Good Comments PF tested seated B PT-OP-Q Treatments Start: 10/28/22 10:48 Freq: Status: Active Protocol: Document 11/26/22 12:51 [facility] (Rec: 11/26/22 13:50 [facility] [id number]) Cardio Equipment Recumbent Stepper (Sci-Fit) Duration (Minutes) 7 Resistance 1 Seat Position 8-6 Gym Equipment Shuttle Recovery Unilateral Squats Details B Resistance 37# Shuttle Recovery Platform Stable Reps/Time 12 Bilateral Squats Resistance 87# Shuttle Recovery Platform Stable Reps/Time 15 cues for slow and controlled Therapeutic Exercises Standing Exercises stairs Standing Exercise Name recip up and down 1/2 of lobby stairs w/rail down squat Standing Exercise Name 1/2 over chair Side bilateral Reps/Minutes 8 Comments cues for butt back and inc range step up Standing Exercise Name 6 in step; 8 in step Side left Equipment Used no rail Reps/Minutes 8 step down Standing Exercise Name 4 in step w/backwards set up; 5 in step Side left Equipment Used rail prn Reps/Minutes 6 ea Manual Therapy Treatment Soft Tissue Mobilization post Body Location addand HS Mobilization Type Rolling Intensity/Depth Moderate Body Position Supine Comments APs and active HS stretch Joint Mobilizations patellofemoral Joint L Direction sup, med, inf Grade III Comments gloves worn PT-OP-R Modalities Start: 10/28/22 10:48 Freq: Status: Active Protocol: Document 11/26/22 12:51 [facility] (Rec: 11/26/22 13:50 [facility] [id number]) Hot Pack/Cold Pack Treatment Cold Pack Location L knee Patient Position Hooklying Treatment Duration (minutes) 10 PT-OP-T Assessment and Plan Start: 10/28/22 10:48 Freq: Status: Active Protocol: Document 11/26/22 12:51 [facility] (Rec: 11/26/22 13:50 [facility] [id number]) Physical Therapy Assessment Goals strength Short Term Goal (STG) Pt will be indep w/HEP STG Duration 12/02/22 Wood Grinder Operator Goal (LTG) Pt will score at least 4+/5 LLE MMT to show improved strangth to allow pt to do activities like camping and walking and chores w/o difficulty LTG Duration 01/13/23 walking Short Term Goal (STG) Pt will be able to amb safely w/o AD in the house STG Duration 11/21/22 Wood Grinder Operator Goal (LTG) Pt will be able to go for 1 mile walks w/o AD w/o pain greater than 2/10 LTG Duration 01/13/23 LEFS Impairment 13 Short Term Goal (STG) Pt will improve LEFS to at least 34/80 to show improved functional ability. STG Duration 12/12/22 Alf Goal (LTG) Pt will improve LEFS to at least 54/80 to show improved functional ability. LTG Duration 01/13/23 ROM Short Term Goal (STG) Pt will improve ROM to 0-100 STG Duration 12/07/22 Wood Grinder Operator Goal (LTG) Pt will improve ROM to 0-125 to allow good ROM for stairs and gait. LTG Duration 01/13/23 Assessment Summary Assessment Pt had 4-90 deg starting session today and imprvoed to 96 deg flex after manual treatment. Pt encoruaged to cont to ice at home. She was able to do greater challeng of step ups w/cues for glutes and wt acceptance and required cues to work on contorl for down 5 in step but fatigued w/ this. Physical Therapy Plan Frequency and Duration Frequency of Treatment 2x/Week Duration of treatment (weeks) 10 Plan of Care Start Date 11/04/22 Plan of Care End Date 01/13/23 Next Visit Focus/Plan Next Note Type Treatment Note Next Visit Plan review exercises and progress as needed, stepper, leg press, work on gait
--- NOTE | 2022-11-28 14:18 | PT.OTN ---
Current Diagnoses Bilateral primary osteoarthritis of knee (11/28/22) Difficulty in walking, not elsewhere classified (11/28/22) Weakness (11/28/22) Presence of left artificial knee joint (11/28/22) Physical Therapy Treatment Note PT-OP-A Visit Information Start: 10/28/22 10:48 Freq: Status: Active Protocol: Document 11/28/22 12:48 [facility] (Rec: 11/28/22 14:18 [facility] [id number]) Out-Patient Physical Therapy Visit Information Visit Information Visit Type Treatment Note Visit Note 01/27 Visit Start Time 12:45 Visit Stop Time 13:37 Total Visit Minutes 52 Visit Number 7 Number of LAND MOBILE RADIO TECHNICIAN Visits 0 PT-OP-B Current Condition Start: 10/28/22 10:48 Freq: Status: Active Protocol: Document 11/04/22 12:57 [facility] (Rec: 11/04/22 13:49 [facility] [id number]) Current Condition History of Current Condition Current Complaints L partial knee replacement History of Current Condition Pt reports she went to the ER to clarify no blood clot and it was negative. She is taking 1-2 pain pills every 8 hours typically. she started her celebrex back too. It is throbbing. She has been just doing APs and walking but wasn 't given instruction of what to do. Pt has an ice machine and it has been super helpful. She has had some trouble w/ compression stockings. Pt reports she has been using the walker in the house and has tried some w/o anything but almost fell when she turned too quick and there was a lot of pain. Treatment Goals Patient/Caregiver Goals get back to camping, get back to walks, be indep w/ADLs , get back to cooking PT-OP-C Subjective Start: 10/28/22 10:48 Freq: Status: Active Protocol: Document 11/28/22 12:48 [facility] (Rec: 11/28/22 14:18 [facility] [id number]) OP-PT Subjective Patient Comments Patient Comments Pt reports L knee has been feeling tight. She worked for 3 hours at her desk yesterday and she knows that was not good then worked in the yard for a couple hours. PT-OP-G Mobility & Gait Start: 10/28/22 10:48 Freq: Status: Active Protocol: Document 11/04/22 12:57 [facility] (Rec: 11/04/22 13:49 [facility] [id number]) OP Gait Assessment Comments Gait Comments dec stance time on LLE; amb w/ FWW PT-OP-K Range of Motion Start: 10/28/22 10:48 Freq: Status: Active Protocol: Document 11/04/22 12:57 [facility] (Rec: 11/04/22 13:49 [facility] [id number]) Knee Goniometric Range of Motion Knee Right Flexion Active (degrees) 118 Extension Active (degrees) 0 Left Flexion Active (degrees) 65 Extension Active (degrees) 8 Comments pain both directions PT-OP-M Strength Start: 10/28/22 10:48 Freq: Status: Active Protocol: Document 11/04/22 12:57 [facility] (Rec: 11/04/22 13:49 [facility] [id number]) Hip Strength Hip Manual Muscle Testing Right Flexion (L2) 4 Good Abduction 4 Good Adduction 4+ Good+ External Rotation 4+ Good+ Internal Rotation 4+ Good+ Left Flexion (L2) 3+ Fair+ Abduction 3+ Fair+ Adduction 3+ Fair+ External Rotation 3+ Fair+ Internal Rotation 3+ Fair+ Knee Strength Knee Manual Muscle Testing Right Flexion (S2) 4+ Good+ Extension (L3) 4 Good Left Flexion (S2) 3+ Fair+ Extension (L3) 3+ Fair+ Ankle/Foot Strength Ankle and Foot Manual Muscle Testing Right Dorsiflexion (L4) 5 Normal Plantarflexion (S1) 5 Normal Left Dorsiflexion (L4) 5 Normal Plantarflexion (S1) 4 Good Comments PF tested seated B PT-OP-Q Treatments Start: 10/28/22 10:48 Freq: Status: Active Protocol: Document 11/28/22 12:48 [facility] (Rec: 11/28/22 14:18 [facility] [id number]) Cardio Equipment Recumbent Stepper (Sci-Fit) Duration (Minutes) 7 Resistance 1 Seat Position 8-5 Gym Equipment Shuttle Recovery Unilateral Squats Details B Resistance 37# Shuttle Recovery Platform Stable Reps/Time 15 Bilateral Squats Resistance 87# Shuttle Recovery Platform Stable Reps/Time 20 cues for slow and controlled Therapeutic Exercises Supine Exercises heel slides Side left Reps/Minutes 5 (5 APs each pull up) Comments APs during holds Standing Exercises TKE Standing Exercise Name behind thigh to focus on quad Side left Equipment Used orange band Reps/Minutes 15 Comments cues for form squat Standing Exercise Name 3/4 over chair Side bilateral Reps/Minutes 10 Comments cues for butt back and inc range step up Standing Exercise Name 8 in step Side left Equipment Used no rail Reps/Minutes 10 step down Standing Exercise Name 4 in step w/backwards set up; 5 in step Side left Equipment Used rail prn Reps/Minutes 8ea Manual Therapy Treatment Soft Tissue Mobilization quad Body Location L Mobilization Type Rolling Intensity/Depth Moderate Comments stephani test position scar Body Location superior aspect Mobilization Type Rolling Joint Mobilizations patellofemoral Joint L Direction sup, med, inf Grade III Comments gloves worn PT-OP-R Modalities Start: 10/28/22 10:48 Freq: Status: Active Protocol: Document 11/28/22 12:48 [facility] (Rec: 11/28/22 14:18 [facility] [id number]) Hot Pack/Cold Pack Treatment Cold Pack Location L knee Patient Position Hooklying Treatment Duration (minutes) 10 PT-OP-T Assessment and Plan Start: 10/28/22 10:48 Freq: Status: Active Protocol: Document 11/28/22 12:48 [facility] (Rec: 11/28/22 14:18 [facility] [id number]) Physical Therapy Assessment Goals strength Short Term Goal (STG) Pt will be indep w/HEP STG Duration 12/02/22 Longterm Goal (LTG) Pt will score at least 4+/5 LLE MMT to show improved strangth to allow pt to do activities like camping and walking and chores w/o difficulty LTG Duration 01/13/23 walking Short Term Goal (STG) Pt will be able to amb safely w/o AD in the house STG Duration 11/21/22 Baby Nurse Goal (LTG) Pt will be able to go for 1 mile walks w/o AD w/o pain greater than 2/10 LTG Duration 01/13/23 LEFS Impairment 13 Short Term Goal (STG) Pt will improve LEFS to at least 34/80 to show improved functional ability. STG Duration 12/12/22 Baby Nurse Goal (LTG) Pt will improve LEFS to at least 54/80 to show improved functional ability. LTG Duration 01/13/23 ROM Short Term Goal (STG) Pt will improve ROM to 0-100 STG Duration 12/07/22 Longterm Goal (LTG) Pt will improve ROM to 0-125 to allow good ROM for stairs and gait. LTG Duration 01/13/23 Assessment Summary Assessment 2-100 deg today prior to manual and improved to 103 deg after manual but does have to push to get to end range flex before and after manual. Pt is getting better quad engagement w/knee ext. Physical Therapy Plan Frequency and Duration Frequency of Treatment 2x/Week Duration of treatment (weeks) 10 Plan of Care Start Date 11/04/22 Plan of Care End Date 01/13/23 Next Visit Focus/Plan Next Note Type Treatment Note Next Visit Plan review exercises and progress as needed, stepper, leg press, work on gait
--- NOTE | 2022-12-02 16:04 | PT.OTN ---
Current Diagnoses Bilateral primary osteoarthritis of knee (12/02/22) Difficulty in walking, not elsewhere classified (12/02/22) Weakness (12/02/22) Presence of left artificial knee joint (12/02/22) Physical Therapy Treatment Note PT-OP-A Visit Information Start: 10/28/22 10:48 Freq: Status: Active Protocol: Document 12/02/22 15:22 [facility] (Rec: 12/02/22 16:04 [facility] [id number]) Out-Patient Physical Therapy Visit Information Visit Information Visit Type Treatment Note Visit Note 02/27 Visit Start Time 15:18 Visit Stop Time 16:10 Total Visit Minutes 52 Visit Number 8 Number of PATTERN PERFORATING MACHINE OPERATOR Visits 0 PT-OP-B Current Condition Start: 10/28/22 10:48 Freq: Status: Active Protocol: Document 11/04/22 12:57 [facility] (Rec: 11/04/22 13:49 [facility] [id number]) Current Condition History of Current Condition Current Complaints L partial knee replacement History of Current Condition Pt reports she went to the ER to clarify no blood clot and it was negative. She is taking 1-2 pain pills every 8 hours typically. she started her celebrex back too. It is throbbing. She has been just doing APs and walking but wasn 't given instruction of what to do. Pt has an ice machine and it has been super helpful. She has had some trouble w/ compression stockings. Pt reports she has been using the walker in the house and has tried some w/o anything but almost fell when she turned too quick and there was a lot of pain. Treatment Goals Patient/Caregiver Goals get back to camping, get back to walks, be indep w/ADLs , get back to cooking PT-OP-C Subjective Start: 10/28/22 10:48 Freq: Status: Active Protocol: Document 12/02/22 15:22 [facility] (Rec: 12/02/22 16:04 [facility] [id number]) OP-PT Subjective Patient Comments Patient Comments Pt reprots concernt that she backslid . She has been raking and doing a lot of yard work. She can now get into her sports car. PT-OP-G Mobility & Gait Start: 10/28/22 10:48 Freq: Status: Active Protocol: Document 11/04/22 12:57 [facility] (Rec: 11/04/22 13:49 [facility] [id number]) OP Gait Assessment Comments Gait Comments dec stance time on LLE; amb w/ FWW PT-OP-K Range of Motion Start: 10/28/22 10:48 Freq: Status: Active Protocol: Document 11/04/22 12:57 [facility] (Rec: 11/04/22 13:49 [facility] [id number]) Knee Goniometric Range of Motion Knee Right Flexion Active (degrees) 118 Extension Active (degrees) 0 Left Flexion Active (degrees) 65 Extension Active (degrees) 8 Comments pain both directions PT-OP-M Strength Start: 10/28/22 10:48 Freq: Status: Active Protocol: Document 11/04/22 12:57 [facility] (Rec: 11/04/22 13:49 [facility] [id number]) Hip Strength Hip Manual Muscle Testing Right Flexion (L2) 4 Good Abduction 4 Good Adduction 4+ Good+ External Rotation 4+ Good+ Internal Rotation 4+ Good+ Left Flexion (L2) 3+ Fair+ Abduction 3+ Fair+ Adduction 3+ Fair+ External Rotation 3+ Fair+ Internal Rotation 3+ Fair+ Knee Strength Knee Manual Muscle Testing Right Flexion (S2) 4+ Good+ Extension (L3) 4 Good Left Flexion (S2) 3+ Fair+ Extension (L3) 3+ Fair+ Ankle/Foot Strength Ankle and Foot Manual Muscle Testing Right Dorsiflexion (L4) 5 Normal Plantarflexion (S1) 5 Normal Left Dorsiflexion (L4) 5 Normal Plantarflexion (S1) 4 Good Comments PF tested seated B PT-OP-Q Treatments Start: 10/28/22 10:48 Freq: Status: Active Protocol: Document 12/02/22 15:22 [facility] (Rec: 12/02/22 16:04 [facility] [id number]) Cardio Equipment Recumbent Bicycle Duration (Minutes) 6 Resistance 0 Seat Position 4 Other rocking fwd/back Gym Equipment Shuttle Recovery Unilateral Squats Details B Resistance 37# Shuttle Recovery Platform Stable Reps/Time 15 Bilateral Squats Resistance 87# Shuttle Recovery Platform Stable Reps/Time 20 cues for slow and controlled Therapeutic Exercises Standing Exercises TKE Standing Exercise Name behind thigh to focus on quad Side left Equipment Used orange band Reps/Minutes 15 Comments cues for form step up Standing Exercise Name 8 in step Side left Equipment Used no rail Reps/Minutes 10 step down Standing Exercise Name 5 in step w/backwards set up Side left Equipment Used no rail Reps/Minutes 10ea Manual Therapy Treatment Soft Tissue Mobilization quad Body Location L Mobilization Type Rolling Intensity/Depth Moderate Comments w/flex scar Body Location superior aspect & inf Mobilization Type Rolling post Body Location HS & ITB Mobilization Type Rolling Intensity/Depth Moderate Joint Mobilizations tibfem Comments AP FM tibfib Joint proximal L distraction and AP Grade II patellofemoral Joint L Direction sup, med, inf Grade III Comments gloves worn PT-OP-R Modalities Start: 10/28/22 10:48 Freq: Status: Active Protocol: Document 12/02/22 15:22 [facility] (Rec: 12/02/22 16:04 [facility] [id number]) Hot Pack/Cold Pack Treatment Cold Pack Location L knee Patient Position Hooklying Treatment Duration (minutes) 10 PT-OP-T Assessment and Plan Start: 10/28/22 10:48 Freq: Status: Active Protocol: Document 12/02/22 15:22 [facility] (Rec: 12/02/22 16:04 [facility] [id number]) Physical Therapy Assessment Goals strength Short Term Goal (STG) Pt will be indep w/HEP STG Duration 12/02/22 Wood Box Maker Goal (LTG) Pt will score at least 4+/5 LLE MMT to show improved strangth to allow pt to do activities like camping and walking and chores w/o difficulty LTG Duration 01/13/23 walking Short Term Goal (STG) Pt will be able to amb safely w/o AD in the house STG Duration 11/21/22 Wood Box Maker Goal (LTG) Pt will be able to go for 1 mile walks w/o AD w/o pain greater than 2/10 LTG Duration 01/13/23 LEFS Impairment 13 Short Term Goal (STG) Pt will improve LEFS to at least 34/80 to show improved functional ability. STG Duration 12/12/22 Wood Box Maker Goal (LTG) Pt will improve LEFS to at least 54/80 to show improved functional ability. LTG Duration 01/13/23 ROM Short Term Goal (STG) Pt will improve ROM to 0-100 STG Duration 12/07/22 Wood Box Maker Goal (LTG) Pt will improve ROM to 0-125 to allow good ROM for stairs and gait. LTG Duration 01/13/23 Assessment Summary Assessment Pt had 4-104 after exercise and prior to manual. she is impoving w/ROM and strength. step downs lacey more controlled this time. Physical Therapy Plan Frequency and Duration Frequency of Treatment 2x/Week Duration of treatment (weeks) 10 Plan of Care Start Date 11/04/22 Plan of Care End Date 01/13/23 Next Visit Focus/Plan Next Note Type Treatment Note Next Visit Plan review exercises and progress as needed, bike, leg press, work on gait
--- NOTE | 2022-12-09 12:17 | PT.OTN ---
Current Diagnoses Bilateral primary osteoarthritis of knee (12/09/22) Difficulty in walking, not elsewhere classified (12/09/22) Weakness (12/09/22) Presence of left artificial knee joint (12/09/22) Physical Therapy Treatment Note PT-OP-A Visit Information Start: 10/28/22 10:48 Freq: Status: Active Protocol: Document 12/09/22 11:44 [facility] (Rec: 12/09/22 12:17 [facility] [id number]) Out-Patient Physical Therapy Visit Information Visit Information Visit Type Treatment Note Visit Note 03/30 Visit Start Time 11:35 Visit Stop Time 12:25 Total Visit Minutes 50 Visit Number 9 Number of DOG RACES MANAGER Visits 0 PT-OP-B Current Condition Start: 10/28/22 10:48 Freq: Status: Active Protocol: Document 11/04/22 12:57 [facility] (Rec: 11/04/22 13:49 [facility] [id number]) Current Condition History of Current Condition Current Complaints L partial knee replacement History of Current Condition Pt reports she went to the ER to clarify no blood clot and it was negative. She is taking 1-2 pain pills every 8 hours typically. she started her celebrex back too. It is throbbing. She has been just doing APs and walking but wasn 't given instruction of what to do. Pt has an ice machine and it has been super helpful. She has had some trouble w/ compression stockings. Pt reports she has been using the walker in the house and has tried some w/o anything but almost fell when she turned too quick and there was a lot of pain. Treatment Goals Patient/Caregiver Goals get back to camping, get back to walks, be indep w/ADLs , get back to cooking PT-OP-C Subjective Start: 10/28/22 10:48 Freq: Status: Active Protocol: Document 12/09/22 11:44 [facility] (Rec: 12/09/22 12:17 [facility] [id number]) OP-PT Subjective Patient Comments Patient Comments [place] a [place] PT-OP-G Mobility & Gait Start: 10/28/22 10:48 Freq: Status: Active Protocol: Document 11/04/22 12:57 [facility] (Rec: 11/04/22 13:49 [facility] [id number]) OP Gait Assessment Comments Gait Comments dec stance time on LLE; amb w/ FWW PT-OP-K Range of Motion Start: 10/28/22 10:48 Freq: Status: Active Protocol: Document 11/04/22 12:57 [facility] (Rec: 11/04/22 13:49 [facility] [id number]) Knee Goniometric Range of Motion Knee Right Flexion Active (degrees) 118 Extension Active (degrees) 0 Left Flexion Active (degrees) 65 Extension Active (degrees) 8 Comments pain both directions PT-OP-M Strength Start: 10/28/22 10:48 Freq: Status: Active Protocol: Document 11/04/22 12:57 [facility] (Rec: 11/04/22 13:49 [facility] [id number]) Hip Strength Hip Manual Muscle Testing Right Flexion (L2) 4 Good Abduction 4 Good Adduction 4+ Good+ External Rotation 4+ Good+ Internal Rotation 4+ Good+ Left Flexion (L2) 3+ Fair+ Abduction 3+ Fair+ Adduction 3+ Fair+ External Rotation 3+ Fair+ Internal Rotation 3+ Fair+ Knee Strength Knee Manual Muscle Testing Right Flexion (S2) 4+ Good+ Extension (L3) 4 Good Left Flexion (S2) 3+ Fair+ Extension (L3) 3+ Fair+ Ankle/Foot Strength Ankle and Foot Manual Muscle Testing Right Dorsiflexion (L4) 5 Normal Plantarflexion (S1) 5 Normal Left Dorsiflexion (L4) 5 Normal Plantarflexion (S1) 4 Good Comments PF tested seated B PT-OP-Q Treatments Start: 10/28/22 10:48 Freq: Status: Active Protocol: Document 12/09/22 11:44 [facility] (Rec: 12/09/22 12:17 [facility] [id number]) Cardio Equipment Recumbent Bicycle Duration (Minutes) 6 Resistance 0 Seat Position 4 Other rocking fwd/back (10 in arow backwards at end) Gym Equipment Shuttle Recovery Unilateral Squats Details B Resistance 50# Shuttle Recovery Platform Stable Reps/Time 15 Bilateral Squats Resistance 87# Shuttle Recovery Platform Stable Reps/Time 25 cues for slow and controlled Therapeutic Exercises Standing Exercises TKE Standing Exercise Name behind thigh to focus on quad Side left Equipment Used orange band Reps/Minutes 15 Comments cues for form step down Standing Exercise Name 5 in step w/backwards set up Side left Equipment Used no rail Reps/Minutes 10ea Manual Therapy Treatment Soft Tissue Mobilization scar Body Location superior aspect & inf Mobilization Type Myofascial Release Comments w/APs, and cascade of techniques PT-OP-R Modalities Start: 10/28/22 10:48 Freq: Status: Active Protocol: Document 12/09/22 11:44 [facility] (Rec: 12/09/22 12:17 [facility] [id number]) Hot Pack/Cold Pack Treatment Cold Pack Location L knee Patient Position Hooklying Treatment Duration (minutes) 10 PT-OP-T Assessment and Plan Start: 10/28/22 10:48 Freq: Status: Active Protocol: Document 12/09/22 11:44 [facility] (Rec: 12/09/22 12:17 [facility] [id number]) Physical Therapy Assessment Goals strength Short Term Goal (STG) Pt will be indep w/HEP STG Duration 12/02/22 Glue Clamp Operator Goal (LTG) Pt will score at least 4+/5 LLE MMT to show improved strangth to allow pt to do activities like camping and walking and chores w/o difficulty LTG Duration 01/13/23 walking Short Term Goal (STG) Pt will be able to amb safely w/o AD in the house STG Duration 11/21/22 Glue Clamp Operator Goal (LTG) Pt will be able to go for 1 mile walks w/o AD w/o pain greater than 2/10 LTG Duration 01/13/23 LEFS Impairment 13 Short Term Goal (STG) Pt will improve LEFS to at least 34/80 to show improved functional ability. STG Duration 12/12/22 Intermediate Goal (LTG) Pt will improve LEFS to at least 54/80 to show improved functional ability. LTG Duration 01/13/23 ROM Short Term Goal (STG) Pt will improve ROM to 0-100 STG Duration 12/07/22 Intermediate Goal (LTG) Pt will improve ROM to 0-125 to allow good ROM for stairs and gait. LTG Duration 01/13/23 Assessment Summary Assessment Pt had 4-105 after exercise and prior to manual today. After manual, pt had improved to 110 deg flex. She cont to improve w/strength and control of quads but is still lacking . Physical Therapy Plan Frequency and Duration Frequency of Treatment 2x/Week Duration of treatment (weeks) 10 Plan of Care Start Date 11/04/22 Plan of Care End Date 01/13/23 Next Visit Focus/Plan Next Note Type Progress Note Next Visit Plan review exercises and progress as needed, bike, leg press, work on gait
--- NOTE | 2022-12-12 17:18 | PT.OTN ---
Current Diagnoses Bilateral primary osteoarthritis of knee (12/12/22) Difficulty in walking, not elsewhere classified (12/12/22) Weakness (12/12/22) Presence of left artificial knee joint (12/12/22) Physical Therapy Treatment Note PT-OP-A Visit Information Start: 10/28/22 10:48 Freq: Status: Active Protocol: Document 12/12/22 16:06 [facility] (Rec: 12/12/22 17:18 [facility] [id number]) Out-Patient Physical Therapy Visit Information Visit Information Visit Type Treatment Note Visit Note 07/30 Visit Start Time 16:06 Visit Stop Time 16:56 Total Visit Minutes 50 Visit Number 10 Number of PICKING MACHINE OPERATOR HELPER Visits 0 PT-OP-B Current Condition Start: 10/28/22 10:48 Freq: Status: Active Protocol: Document 11/04/22 12:57 [facility] (Rec: 11/04/22 13:49 [facility] [id number]) Current Condition History of Current Condition Current Complaints L partial knee replacement History of Current Condition Pt reports she went to the ER to clarify no blood clot and it was negative. She is taking 1-2 pain pills every 8 hours typically. she started her celebrex back too. It is throbbing. She has been just doing APs and walking but wasn 't given instruction of what to do. Pt has an ice machine and it has been super helpful. She has had some trouble w/ compression stockings. Pt reports she has been using the walker in the house and has tried some w/o anything but almost fell when she turned too quick and there was a lot of pain. Treatment Goals Patient/Caregiver Goals get back to camping, get back to walks, be indep w/ADLs , get back to cooking PT-OP-C Subjective Start: 10/28/22 10:48 Freq: Status: Active Protocol: Document 12/12/22 16:06 [facility] (Rec: 12/12/22 17:18 [facility] [id number]) OP-PT Subjective Patient Comments Patient Comments Pt saw PA and has a ROM check in a month w/MD. She is stiff from working 5 hours yesterday . She has been noncompliant w/ PT Patient Questionnaires Lower Extremity Functional Scale LEFS Score 47/80 PT-OP-G Mobility & Gait Start: 10/28/22 10:48 Freq: Status: Active Protocol: Document 11/04/22 12:57 [facility] (Rec: 11/04/22 13:49 [facility] [id number]) OP Gait Assessment Comments Gait Comments dec stance time on LLE; amb w/ FWW PT-OP-K Range of Motion Start: 10/28/22 10:48 Freq: Status: Active Protocol: Document 12/12/22 16:06 [facility] (Rec: 12/12/22 17:18 [facility] [id number]) Knee Goniometric Range of Motion Knee Left Flexion Active (degrees) 107 Extension Active (degrees) 3 Comments pain both directions PT-OP-M Strength Start: 10/28/22 10:48 Freq: Status: Active Protocol: Document 12/12/22 16:06 [facility] (Rec: 12/12/22 17:18 [facility] [id number]) Hip Strength Hip Manual Muscle Testing Right Flexion (L2) 4 Good Extension (S1) 4- Good- Abduction 4+ Good+ Adduction 4+ Good+ External Rotation 4+ Good+ Internal Rotation 4+ Good+ Left Flexion (L2) 4+ Good+ Extension (S1) 4- Good- Abduction 4 Good Adduction 4 Good External Rotation 4+ Good+ Internal Rotation 5 Normal Knee Strength Knee Manual Muscle Testing Right Flexion (S2) 5 Normal Extension (L3) 4+ Good+ Left Flexion (S2) 4 Good Extension (L3) 4+ Good+ Ankle/Foot Strength Ankle and Foot Manual Muscle Testing Right Dorsiflexion (L4) 5 Normal Plantarflexion (S1) 4 Good Comments 15 heel raises Left Dorsiflexion (L4) 5 Normal Plantarflexion (S1) 5 Normal Comments 20 heel raises PT-OP-Q Treatments Start: 10/28/22 10:48 Freq: Status: Active Protocol: Document 12/12/22 16:06 [facility] (Rec: 12/12/22 17:18 [facility] [id number]) Cardio Equipment Recumbent Bicycle Duration (Minutes) 6 Resistance 0 Seat Position 4 Other rocking fwd/back Therapeutic Exercises Standing Exercises TKE Standing Exercise Name behind thigh to focus on quad Side left Equipment Used blue band Reps/Minutes 15 Comments cues for form step up Standing Exercise Name 8 in step Side left Equipment Used no rail Reps/Minutes 10 step down Standing Exercise Name 5 in step w/backwards set up Side left Equipment Used no rail Reps/Minutes 15 heel raises Standing Exercise Name SL Side bilateral Reps/Minutes 15-20 Manual Therapy Treatment Soft Tissue Mobilization Knee Comments superficial fascia at lat knee scar Body Location superior aspect & inf Mobilization Type Myofascial Release Comments w/APs, and cascade of techniques post Body Location HS & ITB Mobilization Type Rolling Intensity/Depth Moderate Comments w/ APS and AAROm knee flex PT-OP-R Modalities Start: 10/28/22 10:48 Freq: Status: Active Protocol: Document 12/12/22 16:06 [facility] (Rec: 12/12/22 17:18 [facility] [id number]) Hot Pack/Cold Pack Treatment Cold Pack Location L knee ant & post Patient Position Hooklying Treatment Duration (minutes) 10 PT-OP-T Assessment and Plan Start: 10/28/22 10:48 Freq: Status: Active Protocol: Document 12/12/22 16:06 [facility] (Rec: 12/12/22 17:18 [facility] [id number]) Physical Therapy Assessment Goals strength Short Term Goal (STG) Pt will be indep w/HEP 12/12-pt indep but inconsistant STG Duration 12/02/22 Retail Mortgage Banker Goal (LTG) Pt will score at least 4+/5 LLE MMT to show improved strangth to allow pt to do activities like camping and walking and chores w/o difficulty 12/12-improving LTG Duration 01/13/23 walking Short Term Goal (STG) Pt will be able to amb safely w/o AD in the house STG Duration achieved Half-Way Goal (LTG) Pt will be able to go for 1 mile walks w/o AD w/o pain greater than 2/10 12/12-can do 1/4 mile LTG Duration 01/13/23 LEFS Impairment 13 Short Term Goal (STG) Pt will improve LEFS to at least 34/80 to show improved functional ability. 12/12-47/80 STG Duration achieved Retail Mortgage Banker Goal (LTG) Pt will improve LEFS to at least 54/80 to show improved functional ability. LTG Duration 01/13/23 ROM Short Term Goal (STG) Pt will improve ROM to 0-100 12/12-improved to 3-107 STG Duration 12/07/22 Half-Way Goal (LTG) Pt will improve ROM to 0-125 to allow good ROM for stairs and gait. LTG Duration 01/13/23 Assessment Summary Assessment Pt had 3-107 after exercise and prior to manual. After manual improved to 110 but does not it feels like it cramps lat so she cannot go further. She did have signifcant swelling and rquired encouragement to keep up HEP and ice at home. She is progressing w/ROM and strength along w/function but does need to be more compliant to see further gains. Her RLE will limit her d/t the knee pain on that side also. Physical Therapy Plan Frequency and Duration Frequency of Treatment 2x/Week Duration of treatment (weeks) 10 Plan of Care Start Date 11/04/22 Plan of Care End Date 01/13/23 Next Visit Focus/Plan Next Note Type Treatment Note Next Visit Plan review exercises and progress as needed, bike, leg press, work on gait
--- NOTE | 2022-12-17 10:02 | PT.OTN ---
Current Diagnoses Bilateral primary osteoarthritis of knee (12/17/22) Difficulty in walking, not elsewhere classified (12/17/22) Weakness (12/17/22) Presence of left artificial knee joint (12/17/22) Physical Therapy Treatment Note PT-OP-A Visit Information Start: 10/28/22 10:48 Freq: Status: Active Protocol: Document 12/17/22 09:06 [facility] (Rec: 12/17/22 10:02 [facility] [id number]) Out-Patient Physical Therapy Visit Information Visit Information Visit Type Treatment Note Visit Note 08/30 Visit Start Time 09:04 Visit Stop Time 09:55 Total Visit Minutes 51 Visit Number 11 Number of DISTANCE EDUCATION COORDINATOR Visits 0 PT-OP-B Current Condition Start: 10/28/22 10:48 Freq: Status: Active Protocol: Document 11/04/22 12:57 [facility] (Rec: 11/04/22 13:49 [facility] [id number]) Current Condition History of Current Condition Current Complaints L partial knee replacement History of Current Condition Pt reports she went to the ER to clarify no blood clot and it was negative. She is taking 1-2 pain pills every 8 hours typically. she started her celebrex back too. It is throbbing. She has been just doing APs and walking but wasn 't given instruction of what to do. Pt has an ice machine and it has been super helpful. She has had some trouble w/ compression stockings. Pt reports she has been using the walker in the house and has tried some w/o anything but almost fell when she turned too quick and there was a lot of pain. Treatment Goals Patient/Caregiver Goals get back to camping, get back to walks, be indep w/ADLs , get back to cooking PT-OP-C Subjective Start: 10/28/22 10:48 Freq: Status: Active Protocol: Document 12/17/22 09:06 [facility] (Rec: 12/17/22 10:02 [facility] [id number]) OP-PT Subjective Patient Comments Patient Comments Pt reports she tripped in her yard this weekend and fell on her butt. Her hip hurt after. PT-OP-G Mobility & Gait Start: 10/28/22 10:48 Freq: Status: Active Protocol: Document 11/04/22 12:57 [facility] (Rec: 11/04/22 13:49 [facility] [id number]) OP Gait Assessment Comments Gait Comments dec stance time on LLE; amb w/ FWW PT-OP-K Range of Motion Start: 10/28/22 10:48 Freq: Status: Active Protocol: Document 12/12/22 16:06 [facility] (Rec: 12/12/22 17:18 [facility] [id number]) Knee Goniometric Range of Motion Knee Left Flexion Active (degrees) 107 Extension Active (degrees) 3 Comments pain both directions PT-OP-M Strength Start: 10/28/22 10:48 Freq: Status: Active Protocol: Document 12/12/22 16:06 [facility] (Rec: 12/12/22 17:18 [facility] [id number]) Hip Strength Hip Manual Muscle Testing Right Flexion (L2) 4 Good Extension (S1) 4- Good- Abduction 4+ Good+ Adduction 4+ Good+ External Rotation 4+ Good+ Internal Rotation 4+ Good+ Left Flexion (L2) 4+ Good+ Extension (S1) 4- Good- Abduction 4 Good Adduction 4 Good External Rotation 4+ Good+ Internal Rotation 5 Normal Knee Strength Knee Manual Muscle Testing Right Flexion (S2) 5 Normal Extension (L3) 4+ Good+ Left Flexion (S2) 4 Good Extension (L3) 4+ Good+ Ankle/Foot Strength Ankle and Foot Manual Muscle Testing Right Dorsiflexion (L4) 5 Normal Plantarflexion (S1) 4 Good Comments 15 heel raises Left Dorsiflexion (L4) 5 Normal Plantarflexion (S1) 5 Normal Comments 20 heel raises PT-OP-Q Treatments Start: 10/28/22 10:48 Freq: Status: Active Protocol: Document 12/17/22 09:06 [facility] (Rec: 12/17/22 10:02 [facility] [id number]) Cardio Equipment Recumbent Bicycle Duration (Minutes) 6 Resistance 0 Seat Position 4 Other rocking fwd/back ( occ backwards then for the last min) Gym Equipment Shuttle Recovery Unilateral Squats Details B Resistance 50# Shuttle Recovery Platform Stable Reps/Time 15 Bilateral Squats Resistance 100# Shuttle Recovery Platform Stable Reps/Time 20 cues for slow and controlled Therapeutic Exercises Standing Exercises step up Standing Exercise Name 8 in step Side left Equipment Used no rail unless needed Reps/Minutes 10 Comments w/alt september step down Standing Exercise Name 5 in then 6 instep w/backwards set up Side left Equipment Used no rail Reps/Minutes 10 ea Comments cues slow Manual Therapy Treatment Soft Tissue Mobilization Knee Comments plunger to distal ITB and lat quad FM scar Mobilization Type Myofascial Release Comments w/APs, and cascade of techniques PT-OP-R Modalities Start: 10/28/22 10:48 Freq: Status: Active Protocol: Document 12/12/22 16:06 [facility] (Rec: 12/12/22 17:18 [facility] [id number]) Hot Pack/Cold Pack Treatment Cold Pack Location L knee ant & post Patient Position Hooklying Treatment Duration (minutes) 10 PT-OP-T Assessment and Plan Start: 10/28/22 10:48 Freq: Status: Active Protocol: Document 12/17/22 09:06 [facility] (Rec: 12/17/22 10:02 [facility] [id number]) Physical Therapy Assessment Goals strength Short Term Goal (STG) Pt will be indep w/HEP 12/12-pt indep but inconsistant STG Duration 12/02/22 Drawbridge Operator Goal (LTG) Pt will score at least 4+/5 LLE MMT to show improved strangth to allow pt to do activities like camping and walking and chores w/o difficulty 12/12-improving LTG Duration 01/13/23 walking Short Term Goal (STG) Pt will be able to amb safely w/o AD in the house STG Duration achieved Care Home Goal (LTG) Pt will be able to go for 1 mile walks w/o AD w/o pain greater than 2/10 12/12-can do 1/4 mile LTG Duration 01/13/23 LEFS Impairment 13 Short Term Goal (STG) Pt will improve LEFS to at least 34/80 to show improved functional ability. 12/12-47/80 STG Duration achieved Drawbridge Operator Goal (LTG) Pt will improve LEFS to at least 54/80 to show improved functional ability. LTG Duration 01/13/23 ROM Short Term Goal (STG) Pt will improve ROM to 0-100 12/12-improved to 3-107 STG Duration 12/07/22 Drawbridge Operator Goal (LTG) Pt will improve ROM to 0-125 to allow good ROM for stairs and gait. LTG Duration 01/13/23 Assessment Summary Assessment Pt had 4-109 after exercise and prior to manual. Pt had only 110 after manual and still c/o of grabbing around entire knee w/flex. She is improving w/strength and functional ability, but just cont to lack ROM Physical Therapy Plan Frequency and Duration Frequency of Treatment 2x/Week Duration of treatment (weeks) 10 Plan of Care Start Date 11/04/22 Plan of Care End Date 01/13/23 Next Visit Focus/Plan Next Note Type Treatment Note Next Visit Plan bike, leg press, work on gait and steps
--- NOTE | 2022-12-19 10:50 | PT.OTN ---
Current Diagnoses Bilateral primary osteoarthritis of knee (12/19/22) Difficulty in walking, not elsewhere classified (12/19/22) Weakness (12/19/22) Presence of left artificial knee joint (12/19/22) Physical Therapy Treatment Note PT-OP-A Visit Information Start: 10/28/22 10:48 Freq: Status: Active Protocol: Document 12/19/22 09:09 [facility] (Rec: 12/19/22 10:49 [facility] [id number]) Out-Patient Physical Therapy Visit Information Visit Information Visit Type Treatment Note Visit Note 09/27 Visit Start Time 09:04 Visit Stop Time 09:55 Total Visit Minutes 51 Visit Number 12 Number of TESTER OPERATOR Visits 0 PT-OP-B Current Condition Start: 10/28/22 10:48 Freq: Status: Active Protocol: Document 11/04/22 12:57 [facility] (Rec: 11/04/22 13:49 [facility] [id number]) Current Condition History of Current Condition Current Complaints L partial knee replacement History of Current Condition Pt reports she went to the ER to clarify no blood clot and it was negative. She is taking 1-2 pain pills every 8 hours typically. she started her celebrex back too. It is throbbing. She has been just doing APs and walking but wasn 't given instruction of what to do. Pt has an ice machine and it has been super helpful. She has had some trouble w/ compression stockings. Pt reports she has been using the walker in the house and has tried some w/o anything but almost fell when she turned too quick and there was a lot of pain. Treatment Goals Patient/Caregiver Goals get back to camping, get back to walks, be indep w/ADLs , get back to cooking PT-OP-C Subjective Start: 10/28/22 10:48 Freq: Status: Active Protocol: Document 12/19/22 09:09 [facility] (Rec: 12/19/22 10:49 [facility] [id number]) OP-PT Subjective Patient Comments Patient Comments Pt reports icing last night because seh did a lot but woke up w/her knee locked up PT-OP-G Mobility & Gait Start: 10/28/22 10:48 Freq: Status: Active Protocol: Document 11/04/22 12:57 [facility] (Rec: 11/04/22 13:49 [facility] [id number]) OP Gait Assessment Comments Gait Comments dec stance time on LLE; amb w/ FWW PT-OP-K Range of Motion Start: 10/28/22 10:48 Freq: Status: Active Protocol: Document 12/12/22 16:06 [facility] (Rec: 12/12/22 17:18 [facility] [id number]) Knee Goniometric Range of Motion Knee Left Flexion Active (degrees) 107 Extension Active (degrees) 3 Comments pain both directions PT-OP-M Strength Start: 10/28/22 10:48 Freq: Status: Active Protocol: Document 12/12/22 16:06 [facility] (Rec: 12/12/22 17:18 [facility] [id number]) Hip Strength Hip Manual Muscle Testing Right Flexion (L2) 4 Good Extension (S1) 4- Good- Abduction 4+ Good+ Adduction 4+ Good+ External Rotation 4+ Good+ Internal Rotation 4+ Good+ Left Flexion (L2) 4+ Good+ Extension (S1) 4- Good- Abduction 4 Good Adduction 4 Good External Rotation 4+ Good+ Internal Rotation 5 Normal Knee Strength Knee Manual Muscle Testing Right Flexion (S2) 5 Normal Extension (L3) 4+ Good+ Left Flexion (S2) 4 Good Extension (L3) 4+ Good+ Ankle/Foot Strength Ankle and Foot Manual Muscle Testing Right Dorsiflexion (L4) 5 Normal Plantarflexion (S1) 4 Good Comments 15 heel raises Left Dorsiflexion (L4) 5 Normal Plantarflexion (S1) 5 Normal Comments 20 heel raises PT-OP-Q Treatments Start: 10/28/22 10:48 Freq: Status: Active Protocol: Document 12/19/22 09:09 [facility] (Rec: 12/19/22 10:49 [facility] [id number]) Cardio Equipment Recumbent Bicycle Duration (Minutes) 6 Resistance 0 Seat Position 4 Other rocking fwd/back ( occ backwards then for the last min) Gym Equipment Shuttle Recovery Unilateral Squats Details B Resistance 62# Shuttle Recovery Platform Stable Reps/Time 15 Bilateral Squats Resistance 112# Shuttle Recovery Platform Stable Reps/Time 20 cues for slow and controlled Therapeutic Exercises Supine Exercises bridge Supine Exercise Name w/HS curl Side bilateral Equipment Used tball 55cm Reps/Minutes 10 Standing Exercises squat Standing Exercise Name 3/4 over chair Side bilateral Reps/Minutes 15 Comments cues for butt back and inc range step up Standing Exercise Name 8 in step Side left Equipment Used no rail unless needed Reps/Minutes 10 Comments w/alt march step down Standing Exercise Name 6 in step w/backwards set up Side left Equipment Used no rail Reps/Minutes 10 ea Comments cues slow Manual Therapy Treatment Soft Tissue Mobilization scar Comments plunger w/APs Joint Mobilizations tibfem Comments AP on femur and tibia biased more latFM med and lat glides FM tibfib Joint proximal L distraction FM Grade II patellofemoral Joint L Direction sup, med, inf Grade III Comments FM w/quad set PT-OP-R Modalities Start: 10/28/22 10:48 Freq: Status: Active Protocol: Document 12/19/22 09:09 [facility] (Rec: 12/19/22 10:50 [facility] [id number]) Hot Pack/Cold Pack Treatment Cold Pack Location L knee ant & post Patient Position Hooklying Treatment Duration (minutes) 10 PT-OP-T Assessment and Plan Start: 10/28/22 10:48 Freq: Status: Active Protocol: Document 12/19/22 09:09 [facility] (Rec: 12/19/22 10:49 [facility] [id number]) Physical Therapy Assessment Goals strength Short Term Goal (STG) Pt will be indep w/HEP 12/12-pt indep but inconsistant STG Duration 12/02/22 Digital Circuit Designer Goal (LTG) Pt will score at least 4+/5 LLE MMT to show improved strangth to allow pt to do activities like camping and walking and chores w/o difficulty 12/12-improving LTG Duration 01/13/23 walking Short Term Goal (STG) Pt will be able to amb safely w/o AD in the house STG Duration achieved Digital Circuit Designer Goal (LTG) Pt will be able to go for 1 mile walks w/o AD w/o pain greater than 2/10 12/12-can do 1/4 mile LTG Duration 01/13/23 LEFS Impairment 13 Short Term Goal (STG) Pt will improve LEFS to at least 34/80 to show improved functional ability. 12/12-47/80 STG Duration achieved [facility] Goal (LTG) Pt will improve LEFS to at least 54/80 to show improved functional ability. LTG Duration 01/13/23 ROM Short Term Goal (STG) Pt will improve ROM to 0-100 12/12-improved to 3-107 STG Duration 12/07/22 Digital Circuit Designer Goal (LTG) Pt will improve ROM to 0-125 to allow good ROM for stairs and gait. LTG Duration 01/13/23 Assessment Summary Assessment Pt had 107 deg after exercise and after manual improved to 113. She does still have pain w/pushint to end range. She is improving in strength and control w/functional tasks. Physical Therapy Plan Frequency and Duration Frequency of Treatment 2x/Week Duration of treatment (weeks) 10 Plan of Care Start Date 11/04/22 Plan of Care End Date 01/13/23 Next Visit Focus/Plan Next Note Type Treatment Note Next Visit Plan bike, leg press, work on gait and steps
--- NOTE | 2022-12-23 16:02 | PT.OTN ---
Current Diagnoses Bilateral primary osteoarthritis of knee (12/23/22) Difficulty in walking, not elsewhere classified (12/23/22) Weakness (12/23/22) Presence of left artificial knee joint (12/23/22) Physical Therapy Treatment Note PT-OP-A Visit Information Start: 10/28/22 10:48 Freq: Status: Active Protocol: Document 12/23/22 15:24 [facility] (Rec: 12/23/22 16:01 [facility] [id number]) Out-Patient Physical Therapy Visit Information Visit Information Visit Type Treatment Note Visit Note 10/28 Visit Start Time 15:20 Visit Stop Time 16:00 Total Visit Minutes 40 Visit Number 13 Number of DINING SERVICE SUPERVISOR Visits 0 PT-OP-B Current Condition Start: 10/28/22 10:48 Freq: Status: Active Protocol: Document 11/04/22 12:57 [facility] (Rec: 11/04/22 13:49 [facility] [id number]) Current Condition History of Current Condition Current Complaints L partial knee replacement History of Current Condition Pt reports she went to the ER to clarify no blood clot and it was negative. She is taking 1-2 pain pills every 8 hours typically. she started her celebrex back too. It is throbbing. She has been just doing APs and walking but wasn 't given instruction of what to do. Pt has an ice machine and it has been super helpful. She has had some trouble w/ compression stockings. Pt reports she has been using the walker in the house and has tried some w/o anything but almost fell when she turned too quick and there was a lot of pain. Treatment Goals Patient/Caregiver Goals get back to camping, get back to walks, be indep w/ADLs , get back to cooking PT-OP-C Subjective Start: 10/28/22 10:48 Freq: Status: Active Protocol: Document 12/23/22 15:24 [facility] (Rec: 12/23/22 16:01 [facility] [id number]) OP-PT Subjective Patient Comments Patient Comments Pt reports she is getting her friend's bike soon. She has been tripping lately on the plastic mat on the ground PT-OP-G Mobility & Gait Start: 10/28/22 10:48 Freq: Status: Active Protocol: Document 11/04/22 12:57 [facility] (Rec: 11/04/22 13:49 [facility] [id number]) OP Gait Assessment Comments Gait Comments dec stance time on LLE; amb w/ FWW PT-OP-K Range of Motion Start: 10/28/22 10:48 Freq: Status: Active Protocol: Document 12/12/22 16:06 [facility] (Rec: 12/12/22 17:18 [facility] [id number]) Knee Goniometric Range of Motion Knee Left Flexion Active (degrees) 107 Extension Active (degrees) 3 Comments pain both directions PT-OP-M Strength Start: 10/28/22 10:48 Freq: Status: Active Protocol: Document 12/12/22 16:06 [facility] (Rec: 12/12/22 17:18 [facility] [id number]) Hip Strength Hip Manual Muscle Testing Right Flexion (L2) 4 Good Extension (S1) 4- Good- Abduction 4+ Good+ Adduction 4+ Good+ External Rotation 4+ Good+ Internal Rotation 4+ Good+ Left Flexion (L2) 4+ Good+ Extension (S1) 4- Good- Abduction 4 Good Adduction 4 Good External Rotation 4+ Good+ Internal Rotation 5 Normal Knee Strength Knee Manual Muscle Testing Right Flexion (S2) 5 Normal Extension (L3) 4+ Good+ Left Flexion (S2) 4 Good Extension (L3) 4+ Good+ Ankle/Foot Strength Ankle and Foot Manual Muscle Testing Right Dorsiflexion (L4) 5 Normal Plantarflexion (S1) 4 Good Comments 15 heel raises Left Dorsiflexion (L4) 5 Normal Plantarflexion (S1) 5 Normal Comments 20 heel raises PT-OP-Q Treatments Start: 10/28/22 10:48 Freq: Status: Active Protocol: Document 12/23/22 15:24 [facility] (Rec: 12/23/22 16:01 [facility] [id number]) Cardio Equipment Recumbent Bicycle Duration (Minutes) 6 Resistance 1 Seat Position 5 Other fwd and backwards around Gym Equipment Shuttle Recovery Unilateral Squats Details B Resistance 62# Shuttle Recovery Platform Stable Reps/Time 20 Bilateral Squats Resistance 112# Shuttle Recovery Platform Stable Reps/Time 20 cues for slow and controlled Therapeutic Exercises Supine Exercises bridge Supine Exercise Name w/HS curl Side bilateral Equipment Used tball 55cm Reps/Minutes 10 Standing Exercises DF Standing Exercise Name DL w/back on wall Side bilateral Reps/Minutes 20 step down Standing Exercise Name 6 in step w/backwards set up Side left Equipment Used no rail Reps/Minutes 10 ea Comments cues slow Manual Therapy Treatment Soft Tissue Mobilization scar Comments plunger w/APs Joint Mobilizations tibfem Comments PA FM patellofemoral Joint L Direction sup, med, inf Grade III Comments FM w/quad set PT-OP-R Modalities Start: 10/28/22 10:48 Freq: Status: Active Protocol: Document 12/19/22 09:09 [facility] (Rec: 12/19/22 10:50 [facility] [id number]) Hot Pack/Cold Pack Treatment Cold Pack Location L knee ant & post Patient Position Hooklying Treatment Duration (minutes) 10 PT-OP-T Assessment and Plan Start: 10/28/22 10:48 Freq: Status: Active Protocol: Document 12/23/22 15:24 [facility] (Rec: 12/23/22 16:01 [facility] [id number]) Physical Therapy Assessment Goals strength Short Term Goal (STG) Pt will be indep w/HEP 12/12-pt indep but inconsistant STG Duration 12/02/22 Cutter Inspector Goal (LTG) Pt will score at least 4+/5 LLE MMT to show improved strangth to allow pt to do activities like camping and walking and chores w/o difficulty 12/12-improving LTG Duration 01/13/23 walking Short Term Goal (STG) Pt will be able to amb safely w/o AD in the house STG Duration achieved Cutter Inspector Goal (LTG) Pt will be able to go for 1 mile walks w/o AD w/o pain greater than 2/10 12/12-can do 1/4 mile LTG Duration 01/13/23 LEFS Impairment 13 Short Term Goal (STG) Pt will improve LEFS to at least 34/80 to show improved functional ability. 12/12-47/80 STG Duration achieved Long-Term Goal (LTG) Pt will improve LEFS to at least 54/80 to show improved functional ability. LTG Duration 01/13/23 ROM Short Term Goal (STG) Pt will improve ROM to 0-100 12/12-improved to 3-107 STG Duration 12/07/22 Long-Term Goal (LTG) Pt will improve ROM to 0-125 to allow good ROM for stairs and gait. LTG Duration 01/13/23 Assessment Summary Assessment Pt showed more control w/step downs from 6 in steps today. Showed difficulty w/DF in standing. 3-105 after exercise and 113 after manual. She is improving w/strengtha nd control. Physical Therapy Plan Frequency and Duration Frequency of Treatment 2x/Week Duration of treatment (weeks) 10 Plan of Care Start Date 11/04/22 Plan of Care End Date 01/13/23 Next Visit Focus/Plan Next Note Type Treatment Note Next Visit Plan bike, leg press, work on gait and steps
--- NOTE | 2022-12-31 16:43 | PT.OTN ---
Current Diagnoses Bilateral primary osteoarthritis of knee (12/31/22) Difficulty in walking, not elsewhere classified (12/31/22) Weakness (12/31/22) Presence of left artificial knee joint (12/31/22) Physical Therapy Treatment Note PT-OP-A Visit Information Start: 10/28/22 10:48 Freq: Status: Active Protocol: Document 12/31/22 15:20 [facility] (Rec: 12/31/22 16:43 [facility] [id number]) Out-Patient Physical Therapy Visit Information Visit Information Visit Type Treatment Note Visit Note 11/27 Student PT Emma Blanca participated in treatment session Visit Start Time 15:17 Visit Stop Time 16:00 Total Visit Minutes 43 Visit Number 14 Number of GUEST SERVICES DIRECTOR Visits 0 PT-OP-B Current Condition Start: 10/28/22 10:48 Freq: Status: Active Protocol: Document 11/04/22 12:57 [facility] (Rec: 11/04/22 13:49 [facility] [id number]) Current Condition History of Current Condition Current Complaints L partial knee replacement History of Current Condition Pt reports she went to the ER to clarify no blood clot and it was negative. She is taking 1-2 pain pills every 8 hours typically. she started her celebrex back too. It is throbbing. She has been just doing APs and walking but wasn 't given instruction of what to do. Pt has an ice machine and it has been super helpful. She has had some trouble w/ compression stockings. Pt reports she has been using the walker in the house and has tried some w/o anything but almost fell when she turned too quick and there was a lot of pain. Treatment Goals Patient/Caregiver Goals get back to camping, get back to walks, be indep w/ADLs , get back to cooking PT-OP-C Subjective Start: 10/28/22 10:48 Freq: Status: Active Protocol: Document 12/31/22 15:20 [facility] (Rec: 12/31/22 16:43 [facility] [id number]) OP-PT Subjective Patient Comments Patient Comments Pt reports she has been sore in B knees. She was doign a lot of stairs at her friend this past week. L knee is still stiff PT-OP-G Mobility & Gait Start: 10/28/22 10:48 Freq: Status: Active Protocol: Document 11/04/22 12:57 [facility] (Rec: 11/04/22 13:49 [facility] [id number]) OP Gait Assessment Comments Gait Comments dec stance time on LLE; amb w/ FWW PT-OP-K Range of Motion Start: 10/28/22 10:48 Freq: Status: Active Protocol: Document 12/12/22 16:06 [facility] (Rec: 12/12/22 17:18 [facility] [id number]) Knee Goniometric Range of Motion Knee Left Flexion Active (degrees) 107 Extension Active (degrees) 3 Comments pain both directions PT-OP-M Strength Start: 10/28/22 10:48 Freq: Status: Active Protocol: Document 12/12/22 16:06 [facility] (Rec: 12/12/22 17:18 [facility] [id number]) Hip Strength Hip Manual Muscle Testing Right Flexion (L2) 4 Good Extension (S1) 4- Good- Abduction 4+ Good+ Adduction 4+ Good+ External Rotation 4+ Good+ Internal Rotation 4+ Good+ Left Flexion (L2) 4+ Good+ Extension (S1) 4- Good- Abduction 4 Good Adduction 4 Good External Rotation 4+ Good+ Internal Rotation 5 Normal Knee Strength Knee Manual Muscle Testing Right Flexion (S2) 5 Normal Extension (L3) 4+ Good+ Left Flexion (S2) 4 Good Extension (L3) 4+ Good+ Ankle/Foot Strength Ankle and Foot Manual Muscle Testing Right Dorsiflexion (L4) 5 Normal Plantarflexion (S1) 4 Good Comments 15 heel raises Left Dorsiflexion (L4) 5 Normal Plantarflexion (S1) 5 Normal Comments 20 heel raises PT-OP-Q Treatments Start: 10/28/22 10:48 Freq: Status: Active Protocol: Document 12/31/22 15:20 [facility] (Rec: 12/31/22 16:43 [facility] [id number]) Cardio Equipment Recumbent Bicycle Duration (Minutes) 7 Resistance 6 Seat Position 5 Gym Equipment Shuttle Recovery Unilateral Squats Details B Resistance 62# Shuttle Recovery Platform Stable Reps/Time 20 Bilateral Squats Details band around knees to dec knee pain R Resistance 112# Shuttle Recovery Platform Stable Reps/Time 20 cues for slow and controlled Manual Therapy Treatment Soft Tissue Mobilization quad Body Location L Mobilization Type Rolling Intensity/Depth Moderate Comments w/flex scar Comments plunger w/APs & MFR post Body Location L HS Comments w/ knee flex/ext med Joint Mobilizations tibfem Comments PA fem FM patellofemoral Joint L Direction sup, med, inf Grade III Comments FM w/quad set PT-OP-R Modalities Start: 10/28/22 10:48 Freq: Status: Active Protocol: Document 12/19/22 09:09 [facility] (Rec: 12/19/22 10:50 [facility] [id number]) Hot Pack/Cold Pack Treatment Cold Pack Location L knee ant & post Patient Position Hooklying Treatment Duration (minutes) 10 PT-OP-T Assessment and Plan Start: 10/28/22 10:48 Freq: Status: Active Protocol: Document 12/31/22 15:20 [facility] (Rec: 12/31/22 16:43 [facility] [id number]) Physical Therapy Assessment Goals strength Short Term Goal (STG) Pt will be indep w/HEP 12/12-pt indep but inconsistant STG Duration 12/02/22 Residential Goal (LTG) Pt will score at least 4+/5 LLE MMT to show improved strangth to allow pt to do activities like camping and walking and chores w/o difficulty 12/12-improving LTG Duration 01/13/23 walking Short Term Goal (STG) Pt will be able to amb safely w/o AD in the house STG Duration achieved Residential Goal (LTG) Pt will be able to go for 1 mile walks w/o AD w/o pain greater than 2/10 12/12-can do 1/4 mile LTG Duration 01/13/23 LEFS Impairment 13 Short Term Goal (STG) Pt will improve LEFS to at least 34/80 to show improved functional ability. 12/12-47/80 STG Duration achieved Printing Plate Clerk Goal (LTG) Pt will improve LEFS to at least 54/80 to show improved functional ability. LTG Duration 01/13/23 ROM Short Term Goal (STG) Pt will improve ROM to 0-100 12/12-improved to 3-107 STG Duration 12/07/22 Residential Goal (LTG) Pt will improve ROM to 0-125 to allow good ROM for stairs and gait. LTG Duration 01/13/23 Assessment Summary Assessment Pt is improvign w/ease of ROm and overall strength and knee mobility. She had less R knee pain w/tband at knees w/leg press. She had 107 deg prior to manual and 113 afer. Improved ease around bike today Physical Therapy Plan Frequency and Duration Frequency of Treatment 2x/Week Duration of treatment (weeks) 10 Plan of Care Start Date 11/04/22 Plan of Care End Date 01/13/23 Next Visit Focus/Plan Next Note Type Treatment Note Next Visit Plan bike, leg press, work on gait and steps
--- NOTE | 2023-01-02 16:02 | PT.OTN ---
Current Diagnoses Bilateral primary osteoarthritis of knee (01/02/23) Difficulty in walking, not elsewhere classified (01/02/23) Weakness (01/02/23) Presence of left artificial knee joint (01/02/23) Physical Therapy Treatment Note PT-OP-A Visit Information Start: 10/28/22 10:48 Freq: Status: Active Protocol: Document 01/02/23 15:21 [facility] (Rec: 01/02/23 16:02 [facility] [id number]) Out-Patient Physical Therapy Visit Information Visit Information Visit Type Treatment Note Visit Note 12/28 Student PT Emma Blanca participated in treatment session Visit Start Time 15:20 Visit Stop Time 16:10 Total Visit Minutes 50 Visit Number 15 Number of ROOM SERVICE FOOD SERVER Visits 0 PT-OP-B Current Condition Start: 10/28/22 10:48 Freq: Status: Active Protocol: Document 11/04/22 12:57 [facility] (Rec: 11/04/22 13:49 [facility] [id number]) Current Condition History of Current Condition Current Complaints L partial knee replacement History of Current Condition Pt reports she went to the ER to clarify no blood clot and it was negative. She is taking 1-2 pain pills every 8 hours typically. she started her celebrex back too. It is throbbing. She has been just doing APs and walking but wasn 't given instruction of what to do. Pt has an ice machine and it has been super helpful. She has had some trouble w/ compression stockings. Pt reports she has been using the walker in the house and has tried some w/o anything but almost fell when she turned too quick and there was a lot of pain. Treatment Goals Patient/Caregiver Goals get back to camping, get back to walks, be indep w/ADLs , get back to cooking PT-OP-C Subjective Start: 10/28/22 10:48 Freq: Status: Active Protocol: Document 01/02/23 15:21 [facility] (Rec: 01/02/23 16:02 [facility] [id number]) OP-PT Subjective Patient Comments Patient Comments Pt reprots the shoes she wore today made her back and knees hurt PT-OP-G Mobility & Gait Start: 10/28/22 10:48 Freq: Status: Active Protocol: Document 11/04/22 12:57 [facility] (Rec: 11/04/22 13:49 [facility] [id number]) OP Gait Assessment Comments Gait Comments dec stance time on LLE; amb w/ FWW PT-OP-K Range of Motion Start: 10/28/22 10:48 Freq: Status: Active Protocol: Document 12/12/22 16:06 [facility] (Rec: 12/12/22 17:18 [facility] [id number]) Knee Goniometric Range of Motion Knee Left Flexion Active (degrees) 107 Extension Active (degrees) 3 Comments pain both directions PT-OP-M Strength Start: 10/28/22 10:48 Freq: Status: Active Protocol: Document 12/12/22 16:06 [facility] (Rec: 12/12/22 17:18 [facility] [id number]) Hip Strength Hip Manual Muscle Testing Right Flexion (L2) 4 Good Extension (S1) 4- Good- Abduction 4+ Good+ Adduction 4+ Good+ External Rotation 4+ Good+ Internal Rotation 4+ Good+ Left Flexion (L2) 4+ Good+ Extension (S1) 4- Good- Abduction 4 Good Adduction 4 Good External Rotation 4+ Good+ Internal Rotation 5 Normal Knee Strength Knee Manual Muscle Testing Right Flexion (S2) 5 Normal Extension (L3) 4+ Good+ Left Flexion (S2) 4 Good Extension (L3) 4+ Good+ Ankle/Foot Strength Ankle and Foot Manual Muscle Testing Right Dorsiflexion (L4) 5 Normal Plantarflexion (S1) 4 Good Comments 15 heel raises Left Dorsiflexion (L4) 5 Normal Plantarflexion (S1) 5 Normal Comments 20 heel raises PT-OP-Q Treatments Start: 10/28/22 10:48 Freq: Status: Active Protocol: Document 01/02/23 15:21 [facility] (Rec: 01/02/23 16:02 [facility] [id number]) Cardio Equipment Recumbent Bicycle Duration (Minutes) 7 Resistance 6-7 Seat Position 5 Gym Equipment Shuttle Recovery Unilateral Squats Details B Resistance 62# Shuttle Recovery Platform Stable Reps/Time 15 Bilateral Squats Details band around knees to dec knee pain R Resistance 112# Shuttle Recovery Platform Stable Reps/Time 20 cues for slow and controlled Therapeutic Exercises Standing Exercises lunges Side bilateral Reps/Minutes 10 ea squat Standing Exercise Name sidestep to squat Side bilateral Equipment Used [place] band around knees Reps/Minutes 20ft ea Manual Therapy Treatment Soft Tissue Mobilization scar Comments plunger& cups w/APs & MFR post Body Location L HS & ITB Comments w/ knee flex/ext med Joint Mobilizations tibfem Comments PA fem FM tibfib Comments PA FM PT-OP-R Modalities Start: 10/28/22 10:48 Freq: Status: Active Protocol: Document 01/02/23 15:21 [facility] (Rec: 01/02/23 16:02 [facility] [id number]) Hot Pack/Cold Pack Treatment Cold Pack Location L knee ant & post& R knee Patient Position Hooklying Treatment Duration (minutes) 10 PT-OP-T Assessment and Plan Start: 10/28/22 10:48 Freq: Status: Active Protocol: Document 01/02/23 15:21 [facility] (Rec: 01/02/23 16:02 [facility] [id number]) Physical Therapy Assessment Goals strength Short Term Goal (STG) Pt will be indep w/HEP 12/12-pt indep but inconsistant STG Duration 12/02/22 Fpc Goal (LTG) Pt will score at least 4+/5 LLE MMT to show improved strangth to allow pt to do activities like camping and walking and chores w/o difficulty 12/12-improving LTG Duration 01/13/23 walking Short Term Goal (STG) Pt will be able to amb safely w/o AD in the house STG Duration achieved Ring Spinner Goal (LTG) Pt will be able to go for 1 mile walks w/o AD w/o pain greater than 2/10 12/12-can do 1/4 mile LTG Duration 01/13/23 LEFS Impairment 13 Short Term Goal (STG) Pt will improve LEFS to at least 34/80 to show improved functional ability. 12/12-47/80 STG Duration achieved Fpc Goal (LTG) Pt will improve LEFS to at least 54/80 to show improved functional ability. LTG Duration 01/13/23 ROM Short Term Goal (STG) Pt will improve ROM to 0-100 12/12-improved to 3-107 STG Duration 12/07/22 Fpc Goal (LTG) Pt will improve ROM to 0-125 to allow good ROM for stairs and gait. LTG Duration 01/13/23 Assessment Summary Assessment Pt tolerating more strength training and does well with squatting and lunging activities. Pt started w/105 deg flex and improved to 115 after manual Physical Therapy Plan Frequency and Duration Frequency of Treatment 2x/Week Duration of treatment (weeks) 10 Plan of Care Start Date 11/04/22 Plan of Care End Date 01/13/23 Next Visit Focus/Plan Next Note Type Progress Note Next Visit Plan bike, leg press, work on gait and steps
--- NOTE | 2023-01-06 16:06 | PT.OTN ---
Current Diagnoses Bilateral primary osteoarthritis of knee (01/06/23) Difficulty in walking, not elsewhere classified (01/06/23) Weakness (01/06/23) Presence of left artificial knee joint (01/06/23) Physical Therapy Treatment Note PT-OP-A Visit Information Start: 10/28/22 10:48 Freq: Status: Active Protocol: Document 01/06/23 15:26 [facility] (Rec: 01/06/23 16:05 [facility] [id number]) Out-Patient Physical Therapy Visit Information Visit Information Visit Type Progress Note Visit Note 07/30 Visit Start Time 15:19 Visit Stop Time 16:10 Total Visit Minutes 51 Visit Number 16 Number of BOLTING MACHINE OPERATOR Visits 0 PT-OP-B Current Condition Start: 10/28/22 10:48 Freq: Status: Active Protocol: Document 11/04/22 12:57 [facility] (Rec: 11/04/22 13:49 [facility] [id number]) Current Condition History of Current Condition Current Complaints L partial knee replacement History of Current Condition Pt reports she went to the ER to clarify no blood clot and it was negative. She is taking 1-2 pain pills every 8 hours typically. she started her celebrex back too. It is throbbing. She has been just doing APs and walking but wasn 't given instruction of what to do. Pt has an ice machine and it has been super helpful. She has had some trouble w/ compression stockings. Pt reports she has been using the walker in the house and has tried some w/o anything but almost fell when she turned too quick and there was a lot of pain. Treatment Goals Patient/Caregiver Goals get back to camping, get back to walks, be indep w/ADLs , get back to cooking PT-OP-C Subjective Start: 10/28/22 10:48 Freq: Status: Active Protocol: Document 01/06/23 15:26 [facility] (Rec: 01/06/23 16:05 [facility] [id number]) OP-PT Subjective Patient Comments Patient Comments Pt reports most of her problem is L knee stiffness and discomfort PT-OP-G Mobility & Gait Start: 10/28/22 10:48 Freq: Status: Active Protocol: Document 11/04/22 12:57 [facility] (Rec: 11/04/22 13:49 [facility] [id number]) OP Gait Assessment Comments Gait Comments dec stance time on LLE; amb w/ FWW PT-OP-K Range of Motion Start: 10/28/22 10:48 Freq: Status: Active Protocol: Document 01/06/23 15:26 [facility] (Rec: 01/06/23 16:05 [facility] [id number]) Knee Goniometric Range of Motion Knee Right Flexion Active (degrees) 118 Extension Active (degrees) 0 Left Flexion Active (degrees) 112 Extension Active (degrees) 3 Comments pain w/flex>ext PT-OP-M Strength Start: 10/28/22 10:48 Freq: Status: Active Protocol: Document 01/06/23 15:26 [facility] (Rec: 01/06/23 16:05 [facility] [id number]) Hip Strength Hip Manual Muscle Testing Right Flexion (L2) 5 Normal Extension (S1) 4+ Good+ Abduction 4+ Good+ Adduction 5 Normal External Rotation 5 Normal Internal Rotation 5 Normal Left Flexion (L2) 5 Normal Extension (S1) 4+ Good+ Abduction 4+ Good+ Adduction 4+ Good+ External Rotation 5 Normal Internal Rotation 5 Normal Knee Strength Knee Manual Muscle Testing Right Flexion (S2) 5 Normal Extension (L3) 5 Normal Left Flexion (S2) 5 Normal Extension (L3) 5 Normal Ankle/Foot Strength Ankle and Foot Manual Muscle Testing Right Dorsiflexion (L4) 5 Normal Plantarflexion (S1) 5 Normal Comments 20 heel raises -less movement Left Dorsiflexion (L4) 5 Normal Plantarflexion (S1) 5 Normal Comments 20 heel raises PT-OP-Q Treatments Start: 10/28/22 10:48 Freq: Status: Active Protocol: Document 01/06/23 15:26 [facility] (Rec: 01/06/23 16:05 [facility] [id number]) Therapeutic Exercises Supine Exercises stretch Supine Exercise Name piriformis Side bilateral Reps/Minutes 30 sec heel slides Supine Exercise Name on wall Side left Reps/Minutes 5 sec x4 Manual Therapy Treatment Soft Tissue Mobilization quad Body Location L circumfrential quad, add & ITB Mobilization Type Rolling Intensity/Depth Moderate scar Comments plunger& cups w/APs & MFR Joint Mobilizations hip Joint on axis IR FM; L inf FM tibfem Comments PA fem FM PT-OP-R Modalities Start: 10/28/22 10:48 Freq: Status: Active Protocol: Document 01/06/23 15:26 [facility] (Rec: 01/06/23 16:05 [facility] [id number]) Hot Pack/Cold Pack Treatment Cold Pack Location L knee ant & post& R knee Patient Position Hooklying Treatment Duration (minutes) 10 PT-OP-T Assessment and Plan Start: 10/28/22 10:48 Freq: Status: Active Protocol: Document 01/06/23 15:26 [facility] (Rec: 01/06/23 16:05 [facility] [id number]) Physical Therapy Assessment Goals strength Short Term Goal (STG) Pt will be indep w/HEP 12/12-pt indep but inconsistant STG Duration achieved Skilled Nursing Goal (LTG) Pt will score at least 4+/5 LLE MMT to show improved strangth to allow pt to do activities like camping and walking and chores w/o difficulty 12/12-improving LTG Duration achieved 01/06 walking Short Term Goal (STG) Pt will be able to amb safely w/o AD in the house STG Duration achieved Cuff Matcher Goal (LTG) Pt will be able to go for 1 mile walks w/o AD w/o pain greater than 2/10 12/12-can do 1/4 mile 01/06-1/2 mile w/o much inc pain LTG Duration 02/17 LEFS Impairment 13 Short Term Goal (STG) Pt will improve LEFS to at least 34/80 to show improved functional ability. 12/12- STG Duration achieved Skilled Nursing Goal (LTG) Pt will improve LEFS to at least 54/80 to show improved functional ability. 01/06- LTG Duration 02/17 ROM Short Term Goal (STG) Pt will improve ROM to 0-100 12/12-improved to 3-107 STG Duration 12/07/22 Skilled Nursing Goal (LTG) Pt will improve ROM to 0-125 to allow good ROM for stairs and gait. LTG Duration 02/17 Assessment Summary Assessment Pt is making excellent progress w/PT and shows much improved strength and cont to improve funcitonally. She is still limited w/her ROM and pain. She started w/112 deg flex and improved to 116 today which is better than she has been presenting w/ recently. Cont PT for strength and ROM and pain control. Physical Therapy Plan Frequency and Duration Frequency of Treatment 1-2x/week Duration of treatment (weeks) 6 Plan of Care Start Date 01/06/23 Plan of Care End Date 02/17/23 Therapeutic Interventions Therapeutic Interventions Balance Training,Gait Training ,Home Exercise Program,Joint Mobilizations,Manual Therapy, Neuromuscular Re-education, Orthotic/Prosthetic Management ,Patient/Caregiver Education, Self-Care/Home Management,Soft Tissue Mobilization,Taping, Therapeutic Activities, Therapeutic Exercises Modalities Cold Pack/Ice Massage,Electric Stimulation,Hot Packs, Ultrasound Next Visit Focus/Plan Next Note Type Progress Note Next Visit Plan bike, leg press, work on gait and steps
--- NOTE | 2023-01-06 16:06 | PT.OPPOC ---
Physical, Occupational & Speech Therapy At [facility] Current Diagnoses Bilateral primary osteoarthritis of knee (01/06/23) Difficulty in walking, not elsewhere classified (01/06/23) Weakness (01/06/23) Presence of left artificial knee joint (01/06/23) Visit Care Team Role Provider Type SEDRICK Morejon Family Provider Non-Staff Primary Care Provider Specialty: Medical Address: [address] [place] [address], [place], [address] Email: Jc Etienne MD Attending Provider Non-Staff Referring Provider Specialty: Orthopedics Address: [address] [place] [address] , [place], [address] Email: Plan Of Care PT-OP-T Assessment and Plan Start: 10/28/22 10:48 Freq: Status: Active Protocol: Document 01/06/23 15:26 [facility] (Rec: 01/06/23 16:05 [facility] [id number]) Physical Therapy Assessment Goals strength Short Term Goal (STG) Pt will be indep w/HEP 12/12-pt indep but inconsistant STG Duration achieved Law Secretary Goal (LTG) Pt will score at least 4+/5 LLE MMT to show improved strangth to allow pt to do activities like camping and walking and chores w/o difficulty 12/12-improving LTG Duration achieved 01/06 walking Short Term Goal (STG) Pt will be able to amb safely w/o AD in the house STG Duration achieved Law Secretary Goal (LTG) Pt will be able to go for 1 mile walks w/o AD w/o pain greater than 2/10 12/12-can do 1/4 mile 01/06-1/2 mile w/o much inc pain LTG Duration 02/17 LEFS Impairment 13 Short Term Goal (STG) Pt will improve LEFS to at least 34/80 to show improved functional ability. 12/12- STG Duration achieved Longterm Goal (LTG) Pt will improve LEFS to at least 54/80 to show improved functional ability. 01/06- LTG Duration 02/17 ROM Short Term Goal (STG) Pt will improve ROM to 0-100 12/12-improved to 3-107 STG Duration 12/07/22 Law Secretary Goal (LTG) Pt will improve ROM to 0-125 to allow good ROM for stairs and gait. LTG Duration 02/17 Assessment Summary Assessment Pt is making excellent progress w/PT and shows much improved strength and cont to improve funcitonally. She is still limited w/her ROM and pain. She started w/112 deg flex and improved to 116 today which is better than she has been presenting w/ recently. Cont PT for strength and ROM and pain control. Physical Therapy Plan Frequency and Duration Frequency of Treatment 1-2x/week Duration of treatment (weeks) 6 Plan of Care Start Date 01/06/23 Plan of Care End Date 02/17/23 Therapeutic Interventions Therapeutic Interventions Balance Training,Gait Training ,Home Exercise Program,Joint Mobilizations,Manual Therapy, Neuromuscular Re-education, Orthotic/Prosthetic Management ,Patient/Caregiver Education, Self-Care/Home Management,Soft Tissue Mobilization,Taping, Therapeutic Activities, Therapeutic Exercises Modalities Cold Pack/Ice Massage,Electric Stimulation,Hot Packs, Ultrasound Next Visit Focus/Plan Next Note Type Progress Note Next Visit Plan bike, leg press, work on gait and steps Plan of Care Dates Plan of Care Start Date 01/06/23 Plan of Care End Date 02/17/23 Electronically Signed by: Fernanda Novak, PT 01/06/23 0786 If you are in agreement with this Plan of Care, please return a signed and dated copy. I have reviewed this Plan of Care and certify that the skilled therapy services above are required to meet the patient?s needs. Physician Signature Date Printed Name and Credentials Clinical Instructor Signature Printed Name and Credentials
--- NOTE | 2023-01-09 16:56 | PT-OP ANOTE ---
Pt came in and said she felt nauseas and pressure in abdomen w/o full voiding and notes this is how she feels with UTIs. She has not been seen yet. BP was 160/89 and pt and PT decided best for pt to go to walk in as she was not feeling well enough to participate in therapy.
--- NOTE | 2023-01-20 16:02 | PT.OTN ---
Current Diagnoses Bilateral primary osteoarthritis of knee (01/20/23) Difficulty in walking, not elsewhere classified (01/20/23) Weakness (01/20/23) Presence of left artificial knee joint (01/20/23) Physical Therapy Treatment Note PT-OP-A Visit Information Start: 10/28/22 10:48 Freq: Status: Active Protocol: Document 01/20/23 15:20 [facility] (Rec: 01/20/23 16:02 [facility] [id number]) Out-Patient Physical Therapy Visit Information Visit Information Visit Type Treatment Note Visit Note 09/27 Visit Start Time 15:16 Visit Stop Time 16:07 Total Visit Minutes 51 Visit Number 18 Number of LEAD MECHANIC Visits 0 PT-OP-B Current Condition Start: 10/28/22 10:48 Freq: Status: Active Protocol: Document 11/04/22 12:57 [facility] (Rec: 11/04/22 13:49 [facility] [id number]) Current Condition History of Current Condition Current Complaints L partial knee replacement History of Current Condition Pt reports she went to the ER to clarify no blood clot and it was negative. She is taking 1-2 pain pills every 8 hours typically. she started her celebrex back too. It is throbbing. She has been just doing APs and walking but wasn 't given instruction of what to do. Pt has an ice machine and it has been super helpful. She has had some trouble w/ compression stockings. Pt reports she has been using the walker in the house and has tried some w/o anything but almost fell when she turned too quick and there was a lot of pain. Treatment Goals Patient/Caregiver Goals get back to camping, get back to walks, be indep w/ADLs , get back to cooking PT-OP-C Subjective Start: 10/28/22 10:48 Freq: Status: Active Protocol: Document 01/20/23 15:20 [facility] (Rec: 01/20/23 16:02 [facility] [id number]) OP-PT Subjective Patient Comments Patient Comments Pt reports B knees hurt so bad . Pt got on the motorcycle and did go. Pt reports B knees painful all the time. Pt reprots she has to be careful going down steps. She feels like she is looser after last session and seeing ehr massage therapist. PT-OP-G Mobility & Gait Start: 10/28/22 10:48 Freq: Status: Active Protocol: Document 11/04/22 12:57 [facility] (Rec: 11/04/22 13:49 [facility] [id number]) OP Gait Assessment Comments Gait Comments dec stance time on LLE; amb w/ FWW PT-OP-K Range of Motion Start: 10/28/22 10:48 Freq: Status: Active Protocol: Document 01/06/23 15:26 [facility] (Rec: 01/06/23 16:05 [facility] [id number]) Knee Goniometric Range of Motion Knee Right Flexion Active (degrees) 118 Extension Active (degrees) 0 Left Flexion Active (degrees) 112 Extension Active (degrees) 3 Comments pain w/flex>ext PT-OP-M Strength Start: 10/28/22 10:48 Freq: Status: Active Protocol: Document 01/06/23 15:26 [facility] (Rec: 01/06/23 16:05 [facility] [id number]) Hip Strength Hip Manual Muscle Testing Right Flexion (L2) 5 Normal Extension (S1) 4+ Good+ Abduction 4+ Good+ Adduction 5 Normal External Rotation 5 Normal Internal Rotation 5 Normal Left Flexion (L2) 5 Normal Extension (S1) 4+ Good+ Abduction 4+ Good+ Adduction 4+ Good+ External Rotation 5 Normal Internal Rotation 5 Normal Knee Strength Knee Manual Muscle Testing Right Flexion (S2) 5 Normal Extension (L3) 5 Normal Left Flexion (S2) 5 Normal Extension (L3) 5 Normal Ankle/Foot Strength Ankle and Foot Manual Muscle Testing Right Dorsiflexion (L4) 5 Normal Plantarflexion (S1) 5 Normal Comments 20 heel raises -less movement Left Dorsiflexion (L4) 5 Normal Plantarflexion (S1) 5 Normal Comments 20 heel raises PT-OP-Q Treatments Start: 10/28/22 10:48 Freq: Status: Active Protocol: Document 01/20/23 15:20 [facility] (Rec: 01/20/23 16:02 [facility] [id number]) Cardio Equipment Recumbent Bicycle Duration (Minutes) 6 Resistance 7 Seat Position 5 Gym Equipment Shuttle Recovery Unilateral Squats Details B Resistance 62# Shuttle Recovery Platform Stable Reps/Time 15 Bilateral Squats Details orange band around knees to dec knee pain R Resistance 112# Shuttle Recovery Platform Stable Reps/Time 20 cues for slow and controlled Therapeutic Exercises Supine Exercises bridge Supine Exercise Name alt march Side bilateral Reps/Minutes 6 Standing Exercises step down Standing Exercise Name 6 in step w/backwards set up Side left Equipment Used no rail Reps/Minutes 10 ea Comments cues slow Manual Therapy Treatment Soft Tissue Mobilization ITB Body Location L Comments percussion distally quad Body Location L percussion distally scar Comments percussion w/APs & MFR Joint Mobilizations tibfem Comments PA tib FM tibfib Comments caudal glide & PA FM fib PT-OP-R Modalities Start: 10/28/22 10:48 Freq: Status: Active Protocol: Document 01/20/23 15:20 [facility] (Rec: 01/20/23 16:02 [facility] [id number]) Hot Pack/Cold Pack Treatment Cold Pack Location L knee ant & post& R knee Patient Position Hooklying Treatment Duration (minutes) 10 PT-OP-T Assessment and Plan Start: 10/28/22 10:48 Freq: Status: Active Protocol: Document 01/20/23 15:20 [facility] (Rec: 01/20/23 16:02 [facility] [id number]) Physical Therapy Assessment Goals strength Short Term Goal (STG) Pt will be indep w/HEP 12/12-pt indep but inconsistant STG Duration achieved Black Top Raker Goal (LTG) Pt will score at least 4+/5 LLE MMT to show improved strangth to allow pt to do activities like camping and walking and chores w/o difficulty 12/12-improving LTG Duration achieved 01/06 walking Short Term Goal (STG) Pt will be able to amb safely w/o AD in the house STG Duration achieved Black Top Raker Goal (LTG) Pt will be able to go for 1 mile walks w/o AD w/o pain greater than 2/10 12/12-can do 1/4 mile 01/06-1/2 mile w/o much inc pain LTG Duration 02/17 LEFS Impairment 13 Short Term Goal (STG) Pt will improve LEFS to at least 34/80 to show improved functional ability. 12/12- STG Duration achieved Black Top Raker Goal (LTG) Pt will improve LEFS to at least 54/80 to show improved functional ability. 01/06- LTG Duration 02/17 ROM Short Term Goal (STG) Pt will improve ROM to 0-100 12/12-improved to 3-107 STG Duration 12/07/22 Black Top Raker Goal (LTG) Pt will improve ROM to 0-125 to allow good ROM for stairs and gait. LTG Duration 02/17 Assessment Summary Assessment Pt started w/114 deg after exercises today and improved to 118 after manual. She requires ceus for control w/ strength exercises Physical Therapy Plan Frequency and Duration Frequency of Treatment 1-2x/week Duration of treatment (weeks) 6 Plan of Care Start Date 01/06/23 Plan of Care End Date 02/17/23 Next Visit Focus/Plan Next Note Type Treatment Note Next Visit Plan bike, work on knee flex
--- NOTE | 2023-01-23 16:05 | PT.OTN ---
Current Diagnoses Bilateral primary osteoarthritis of knee (01/23/23) Difficulty in walking, not elsewhere classified (01/23/23) Weakness (01/23/23) Presence of left artificial knee joint (01/23/23) Physical Therapy Treatment Note PT-OP-A Visit Information Start: 10/28/22 10:48 Freq: Status: Active Protocol: Document 01/23/23 15:27 [facility] (Rec: 01/23/23 16:04 [facility] [id number]) Out-Patient Physical Therapy Visit Information Visit Information Visit Type Treatment Note Visit Note 10/28 Visit Start Time 15:22 Visit Stop Time 16:10 Total Visit Minutes 48 Visit Number 19 Number of ENVIRONMENTAL ATTORNEY Visits 0 PT-OP-B Current Condition Start: 10/28/22 10:48 Freq: Status: Active Protocol: Document 11/04/22 12:57 [facility] (Rec: 11/04/22 13:49 [facility] [id number]) Current Condition History of Current Condition Current Complaints L partial knee replacement History of Current Condition Pt reports she went to the ER to clarify no blood clot and it was negative. She is taking 1-2 pain pills every 8 hours typically. she started her celebrex back too. It is throbbing. She has been just doing APs and walking but wasn 't given instruction of what to do. Pt has an ice machine and it has been super helpful. She has had some trouble w/ compression stockings. Pt reports she has been using the walker in the house and has tried some w/o anything but almost fell when she turned too quick and there was a lot of pain. Treatment Goals Patient/Caregiver Goals get back to camping, get back to walks, be indep w/ADLs , get back to cooking PT-OP-C Subjective Start: 10/28/22 10:48 Freq: Status: Active Protocol: Document 01/23/23 15:27 [facility] (Rec: 01/23/23 16:04 [facility] [id number]) OP-PT Subjective Patient Comments Patient Comments Pt reports L knee feels stiff. R>L knee pain PT-OP-G Mobility & Gait Start: 10/28/22 10:48 Freq: Status: Active Protocol: Document 11/04/22 12:57 [facility] (Rec: 11/04/22 13:49 [facility] [id number]) OP Gait Assessment Comments Gait Comments dec stance time on LLE; amb w/ FWW PT-OP-K Range of Motion Start: 10/28/22 10:48 Freq: Status: Active Protocol: Document 01/06/23 15:26 [facility] (Rec: 01/06/23 16:05 [facility] [id number]) Knee Goniometric Range of Motion Knee Right Flexion Active (degrees) 118 Extension Active (degrees) 0 Left Flexion Active (degrees) 112 Extension Active (degrees) 3 Comments pain w/flex>ext PT-OP-M Strength Start: 10/28/22 10:48 Freq: Status: Active Protocol: Document 01/06/23 15:26 [facility] (Rec: 01/06/23 16:05 [facility] [id number]) Hip Strength Hip Manual Muscle Testing Right Flexion (L2) 5 Normal Extension (S1) 4+ Good+ Abduction 4+ Good+ Adduction 5 Normal External Rotation 5 Normal Internal Rotation 5 Normal Left Flexion (L2) 5 Normal Extension (S1) 4+ Good+ Abduction 4+ Good+ Adduction 4+ Good+ External Rotation 5 Normal Internal Rotation 5 Normal Knee Strength Knee Manual Muscle Testing Right Flexion (S2) 5 Normal Extension (L3) 5 Normal Left Flexion (S2) 5 Normal Extension (L3) 5 Normal Ankle/Foot Strength Ankle and Foot Manual Muscle Testing Right Dorsiflexion (L4) 5 Normal Plantarflexion (S1) 5 Normal Comments 20 heel raises -less movement Left Dorsiflexion (L4) 5 Normal Plantarflexion (S1) 5 Normal Comments 20 heel raises PT-OP-Q Treatments Start: 10/28/22 10:48 Freq: Status: Active Protocol: Document 01/23/23 15:27 [facility] (Rec: 01/23/23 16:04 [facility] [id number]) Gym Equipment Shuttle Recovery Unilateral Squats Details B Resistance 62# Shuttle Recovery Platform Stable Reps/Time 15 Bilateral Squats Resistance 125# Shuttle Recovery Platform Stable Reps/Time 20 cues for slow and controlled Therapeutic Exercises Standing Exercises hip hikes Side bilateral Reps/Minutes 5 on R (stopped d/t pain) ; 15 L gait at wall Side left Reps/Minutes 10 sec x5 Comments tried one on R but painful step down Standing Exercise Name 4 in then 5 in stepstep w/ backwards set up Side left Equipment Used no rail Reps/Minutes 10 ea Comments cues slow Manual Therapy Treatment Soft Tissue Mobilization calf Body Location circumfrential Mobilization Type Myofascial Release Intensity/Depth Superficial Body Position Hooklying Comments w/APs scar Intensity/Depth Superficial Comments plunger & MFR Joint Mobilizations tibfib Comments caudal glide, AP& PA FM fib percusion patellofemoral Joint L Direction sup, med, inf Grade III Comments FM w/quad set PT-OP-R Modalities Start: 10/28/22 10:48 Freq: Status: Active Protocol: Document 01/23/23 15:27 [facility] (Rec: 01/23/23 16:04 [facility] [id number]) Hot Pack/Cold Pack Treatment Cold Pack Location L knee ant & post& R knee Patient Position Hooklying Treatment Duration (minutes) 10 PT-OP-T Assessment and Plan Start: 10/28/22 10:48 Freq: Status: Active Protocol: Document 01/23/23 15:27 [facility] (Rec: 01/23/23 16:04 [facility] [id number]) Physical Therapy Assessment Goals strength Short Term Goal (STG) Pt will be indep w/HEP 12/12-pt indep but inconsistant STG Duration achieved Check Writer Salesperson Goal (LTG) Pt will score at least 4+/5 LLE MMT to show improved strangth to allow pt to do activities like camping and walking and chores w/o difficulty 12/12-improving LTG Duration achieved 01/06 walking Short Term Goal (STG) Pt will be able to amb safely w/o AD in the house STG Duration achieved Alf Goal (LTG) Pt will be able to go for 1 mile walks w/o AD w/o pain greater than 2/10 12/12-can do 1/4 mile 01/06-1/2 mile w/o much inc pain LTG Duration 02/17 LEFS Impairment 13 Short Term Goal (STG) Pt will improve LEFS to at least 34/80 to show improved functional ability. 12/12- STG Duration achieved Check Writer Salesperson Goal (LTG) Pt will improve LEFS to at least 54/80 to show improved functional ability. 01/06- LTG Duration 02/17 ROM Short Term Goal (STG) Pt will improve ROM to 0-100 12/12-improved to 3-107 STG Duration 12/07/22 Alf Goal (LTG) Pt will improve ROM to 0-125 to allow good ROM for stairs and gait. LTG Duration 02/17 Assessment Summary Assessment Pt had less ROM but did have inc swelling. Encouraged to wear compression sock for a day and to ice. Pt required cues for all exercises for contorl and ROM. Physical Therapy Plan Frequency and Duration Frequency of Treatment 1-2x/week Duration of treatment (weeks) 6 Plan of Care Start Date 01/06/23 Plan of Care End Date 02/17/23 Next Visit Focus/Plan Next Note Type Treatment Note Next Visit Plan work on glute control and knee tracking, PNF for gait,
--- NOTE | 2023-01-30 08:40 | PT-OP ANOTE ---
Pt called re: no show and message left re: next scheduled appt.
--- NOTE | 2023-02-11 18:27 | PT.OPPOC ---
Physical, Occupational & Speech Therapy At [facility] Current Diagnoses Bilateral primary osteoarthritis of knee (02/11/23) Difficulty in walking, not elsewhere classified (02/11/23) Weakness (02/11/23) Presence of left artificial knee joint (02/11/23) Visit Care Team Role Provider Type SEDRICK Morejon Family Provider Non-Staff Primary Care Provider Specialty: Medical Address: [address] [place] [address], [place], [address] Email: Jc Etienne MD Attending Provider Non-Staff Referring Provider Specialty: Orthopedics Address: [address] [place] [address] , [place], [address] Email: Plan Of Care PT-OP-T Assessment and Plan Start: 10/28/22 10:48 Freq: Status: Active Protocol: Document 02/11/23 17:38 (Rec: 02/11/23 17:52 [id number]) Physical Therapy Assessment Goals strength Short Term Goal (STG) Pt will be indep w/HEP 12/12-pt indep but inconsistant STG Duration achieved Sawyer Helper Goal (LTG) Pt will score at least 4+/5 LLE MMT to show improved strangth to allow pt to do activities like camping and walking and chores w/o difficulty 12/12-improving LTG Duration achieved 01/06 walking Short Term Goal (STG) Pt will be able to amb safely w/o AD in the house STG Duration achieved Longterm Goal (LTG) Pt will be able to go for 1 mile walks w/o AD w/o pain greater than 2/10 12/12-can do 1/4 mile 01/06-1/2 mile w/o much inc pain 02/11- pt reports not walking much LTG Duration 03/25/23 LEFS Impairment 13 Short Term Goal (STG) Pt will improve LEFS to at least 34/80 to show improved functional ability. 12/12- STG Duration achieved Sawyer Helper Goal (LTG) Pt will improve LEFS to at least 54/80 to show improved functional ability. 01/06- 02/11- 51/80 LTG Duration 03/25/23 ROM Short Term Goal (STG) Pt will improve ROM to 0-100 12/12-improved to 3-107 02/11- improved 2-118 STG Duration 02/22/23 Longterm Goal (LTG) Pt will improve ROM to 0-125 to allow good ROM for stairs and gait. 02/11- 2-118 LTG Duration 03/25/23 Assessment Summary Assessment pt was 4+/5 or greater for all MMT bilateral LE. She has shown improved strength in her LEs but is still lacking ROM and has pain when stepping down from a step. She has made signifcant progeress w/ her LEFS. She is slow to recovery due to inconsistency w/HEP. She has difficulty increasing her ROM due to pain. Pain in her R knee and Low back pain complicates her progress especially w/ wt bearing tasks . Pt would benefit from continued physical therapy so that she can maximize functional recovery. Physical Therapy Plan Frequency and Duration Frequency of Treatment 1-2x/week Duration of treatment (weeks) 6 Plan of Care Start Date 02/11/23 Plan of Care End Date 03/25/23 Therapeutic Interventions Therapeutic Interventions Balance Training,Gait Training ,Home Exercise Program,Joint Mobilizations,Manual Therapy, Neuromuscular Re-education, Orthotic/Prosthetic Management ,Patient/Caregiver Education, Self-Care/Home Management,Soft Tissue Mobilization,Taping, Therapeutic Activities, Therapeutic Exercises Modalities Cold Pack/Ice Massage,Electric Stimulation,Hot Packs, Ultrasound Next Visit Focus/Plan Next Note Type Treatment Note Next Visit Plan work on glute control and knee tracking, PNF for gait, Check in on HEP Plan of Care Dates Plan of Care Start Date 02/11/23 Plan of Care End Date 03/25/23 Electronically Signed by: Fernanda Novak, PT 02/11/23 [id number] If you are in agreement with this Plan of Care, please return a signed and dated copy. I have reviewed this Plan of Care and certify that the skilled therapy services above are required to meet the patient?s needs. Physician Signature Date Printed Name and Credentials Clinical Instructor Signature Printed Name and Credentials
--- NOTE | 2023-02-11 18:27 | PT.OTN ---
Addendum entered and electronically signed by Fernanda Novak PT 02/12/23 17:04: PT direct supervision and direction to PT student. Original Note: Current Diagnoses Bilateral primary osteoarthritis of knee (02/11/23) Difficulty in walking, not elsewhere classified (02/11/23) Weakness (02/11/23) Presence of left artificial knee joint (02/11/23) Physical Therapy Treatment Note PT-OP-A Visit Information Start: 10/28/22 10:48 Freq: Status: Active Protocol: Document 02/11/23 17:38 (Rec: 02/11/23 17:52 [id number]) Out-Patient Physical Therapy Visit Information Visit Information Visit Type Progress Note Visit Start Time 16:50 Visit Stop Time 17:40 Total Visit Minutes 50 Visit Number 20 Number of COLLATOR OPERATOR Visits 0 PT-OP-B Current Condition Start: 10/28/22 10:48 Freq: Status: Active Protocol: Document 11/04/22 12:57 [facility] (Rec: 11/04/22 13:49 [facility] [id number]) Current Condition History of Current Condition Current Complaints L partial knee replacement History of Current Condition Pt reports she went to the ER to clarify no blood clot and it was negative. She is taking 1-2 pain pills every 8 hours typically. she started her celebrex back too. It is throbbing. She has been just doing APs and walking but wasn 't given instruction of what to do. Pt has an ice machine and it has been super helpful. She has had some trouble w/ compression stockings. Pt reports she has been using the walker in the house and has tried some w/o anything but almost fell when she turned too quick and there was a lot of pain. Treatment Goals Patient/Caregiver Goals get back to camping, get back to walks, be indep w/ADLs , get back to cooking PT-OP-C Subjective Start: 10/28/22 10:48 Freq: Status: Active Protocol: Document 02/11/23 17:38 (Rec: 02/11/23 17:52 [id number]) OP-PT Subjective Patient Comments Patient Comments pt just got back from [place]. She reports doing exercises while in the pool. She does not walk. Patient Questionnaires Lower Extremity Functional Scale LEFS Score 51 PT-OP-G Mobility & Gait Start: 10/28/22 10:48 Freq: Status: Active Protocol: Document 11/04/22 12:57 [facility] (Rec: 11/04/22 13:49 [facility] [id number]) OP Gait Assessment Comments Gait Comments dec stance time on LLE; amb w/ FWW PT-OP-K Range of Motion Start: 10/28/22 10:48 Freq: Status: Active Protocol: Document 02/11/23 17:38 (Rec: 02/11/23 17:56 [id number]) Knee Goniometric Range of Motion Knee Left Flexion Active (degrees) 118 Extension Active (degrees) 2 Comments pain w/flex>ext PT-OP-M Strength Start: 10/28/22 10:48 Freq: Status: Active Protocol: Document 02/11/23 17:38 (Rec: 02/11/23 17:56 [id number]) Hip Strength Hip Manual Muscle Testing Right Flexion (L2) 5 Normal Extension (S1) 4+ Good+ Abduction 4+ Good+ Adduction 5 Normal External Rotation 5 Normal Internal Rotation 5 Normal Left Flexion (L2) 5 Normal Extension (S1) 4+ Good+ Abduction 4+ Good+ Adduction 4+ Good+ External Rotation 4+ Good+ Internal Rotation 5 Normal Knee Strength Knee Manual Muscle Testing Right Flexion (S2) 5 Normal Extension (L3) 5 Normal Left Flexion (S2) 5 Normal Extension (L3) 5 Normal Ankle/Foot Strength Ankle and Foot Manual Muscle Testing Right Dorsiflexion (L4) 5 Normal Left Dorsiflexion (L4) 5 Normal PT-OP-Q Treatments Start: 10/28/22 10:48 Freq: Status: Active Protocol: Document 02/11/23 17:38 (Rec: 02/11/23 17:52 [id number]) Cardio Equipment Recumbent Elliptical (Biodex) Duration (Minutes) 7 Resistance 7-10 Seat Position 5 Therapeutic Exercises Standing Exercises Standing March Standing Exercise Name Standing september w/band around feet Side bilateral Equipment Used orange band Reps/Minutes 10x ea Quad Stretch Standing Exercise Name quad stretch foot on chair Side bilateral Reps/Minutes 2p89bty lunges Standing Exercise Name at bar, foot on 6in step Side bilateral Reps/Minutes 10 ea squat Standing Exercise Name Squat @bar Side bilateral Reps/Minutes 10x Manual Therapy Treatment Soft Tissue Mobilization post Body Location L HS Comments w/knee flex/ext PT-OP-R Modalities Start: 10/28/22 10:48 Freq: Status: Active Protocol: Document 02/11/23 17:38 (Rec: 02/11/23 18:22 [id number]) Hot Pack/Cold Pack Treatment Cold Pack Location L knee ant & post& R knee Patient Position Hooklying Treatment Duration (minutes) 10 PT-OP-T Assessment and Plan Start: 10/28/22 10:48 Freq: Status: Active Protocol: Document 02/11/23 17:38 (Rec: 02/11/23 17:52 [id number]) Physical Therapy Assessment Goals strength Short Term Goal (STG) Pt will be indep w/HEP 12/12-pt indep but inconsistant STG Duration achieved Half-Way Goal (LTG) Pt will score at least 4+/5 LLE MMT to show improved strangth to allow pt to do activities like camping and walking and chores w/o difficulty 12/12-improving LTG Duration achieved 01/06 walking Short Term Goal (STG) Pt will be able to amb safely w/o AD in the house STG Duration achieved Safety Physician Goal (LTG) Pt will be able to go for 1 mile walks w/o AD w/o pain greater than 2/10 12/12-can do 1/4 mile 01/06-1/2 mile w/o much inc pain 02/11- pt reports not walking much LTG Duration 03/25/23 LEFS Impairment 13 Short Term Goal (STG) Pt will improve LEFS to at least 34/80 to show improved functional ability. 12/12-/ STG Duration achieved Safety Physician Goal (LTG) Pt will improve LEFS to at least 54/80 to show improved functional ability. 01/06-49/80 02/11- 51/80 LTG Duration 03/25/23 ROM Short Term Goal (STG) Pt will improve ROM to 0-100 12/12-improved to 3-107 02/11- improved 2-118 STG Duration 02/22/23 Safety Physician Goal (LTG) Pt will improve ROM to 0-125 to allow good ROM for stairs and gait. 02/11- 2-118 LTG Duration 03/25/23 Assessment Summary Assessment pt was 4+/5 or greater for all MMT bilateral LE. She has shown improved strength in her LEs but is still lacking ROM and has pain when stepping down from a step. She has made signifcant progeress w/ her LEFS. She is slow to recovery due to inconsistency w/HEP. She has difficulty increasing her ROM due to pain. Pain in her R knee and Low back pain complicates her progress especially w/ wt bearing tasks . Pt would benefit from continued physical therapy so that she can maximize functional recovery. Physical Therapy Plan Frequency and Duration Frequency of Treatment 1-2x/week Duration of treatment (weeks) 6 Plan of Care Start Date 02/11/23 Plan of Care End Date 03/25/23 Therapeutic Interventions Therapeutic Interventions Balance Training,Gait Training ,Home Exercise Program,Joint Mobilizations,Manual Therapy, Neuromuscular Re-education, Orthotic/Prosthetic Management ,Patient/Caregiver Education, Self-Care/Home Management,Soft Tissue Mobilization,Taping, Therapeutic Activities, Therapeutic Exercises Modalities Cold Pack/Ice Massage,Electric Stimulation,Hot Packs, Ultrasound Next Visit Focus/Plan Next Note Type Treatment Note Next Visit Plan work on glute control and knee tracking, PNF for gait, Check in on HEP
--- NOTE | 2023-02-13 17:49 | PT.OTN ---
Addendum entered and electronically signed by Fernanda Novak PT 02/13/23 17:50: PT direct supervision and direction to PT student. Original Note: Current Diagnoses Bilateral primary osteoarthritis of knee (02/13/23) Difficulty in walking, not elsewhere classified (02/13/23) Weakness (02/13/23) Presence of left artificial knee joint (02/13/23) Physical Therapy Treatment Note PT-OP-A Visit Information Start: 10/28/22 10:48 Freq: Status: Active Protocol: Document 02/13/23 17:12 (Rec: 02/13/23 17:19 [id number]) Out-Patient Physical Therapy Visit Information Visit Information Visit Type Treatment Note Visit Note 12/28 Visit Start Time 16:01 Visit Stop Time 16:55 Total Visit Minutes 54 Visit Number 21 Number of POT ROOM TAPPER Visits 0 PT-OP-B Current Condition Start: 10/28/22 10:48 Freq: Status: Active Protocol: Document 11/04/22 12:57 [facility] (Rec: 11/04/22 13:49 [facility] [id number]) Current Condition History of Current Condition Current Complaints L partial knee replacement History of Current Condition Pt reports she went to the ER to clarify no blood clot and it was negative. She is taking 1-2 pain pills every 8 hours typically. she started her celebrex back too. It is throbbing. She has been just doing APs and walking but wasn 't given instruction of what to do. Pt has an ice machine and it has been super helpful. She has had some trouble w/ compression stockings. Pt reports she has been using the walker in the house and has tried some w/o anything but almost fell when she turned too quick and there was a lot of pain. Treatment Goals Patient/Caregiver Goals get back to camping, get back to walks, be indep w/ADLs , get back to cooking PT-OP-C Subjective Start: 10/28/22 10:48 Freq: Status: Active Protocol: Document 02/13/23 17:12 (Rec: 02/13/23 17:19 [id number]) OP-PT Subjective Patient Comments Patient Comments pt notes that she did do her exercises except the wall heel slides. PT-OP-G Mobility & Gait Start: 10/28/22 10:48 Freq: Status: Active Protocol: Document 11/04/22 12:57 [facility] (Rec: 11/04/22 13:49 [facility] [id number]) OP Gait Assessment Comments Gait Comments dec stance time on LLE; amb w/ FWW PT-OP-K Range of Motion Start: 10/28/22 10:48 Freq: Status: Active Protocol: Document 02/11/23 17:38 (Rec: 02/11/23 17:56 [id number]) Knee Goniometric Range of Motion Knee Left Flexion Active (degrees) 118 Extension Active (degrees) 2 Comments pain w/flex>ext PT-OP-M Strength Start: 10/28/22 10:48 Freq: Status: Active Protocol: Document 02/11/23 17:38 (Rec: 02/11/23 17:56 [id number]) Hip Strength Hip Manual Muscle Testing Right Flexion (L2) 5 Normal Extension (S1) 4+ Good+ Abduction 4+ Good+ Adduction 5 Normal External Rotation 5 Normal Internal Rotation 5 Normal Left Flexion (L2) 5 Normal Extension (S1) 4+ Good+ Abduction 4+ Good+ Adduction 4+ Good+ External Rotation 4+ Good+ Internal Rotation 5 Normal Knee Strength Knee Manual Muscle Testing Right Flexion (S2) 5 Normal Extension (L3) 5 Normal Left Flexion (S2) 5 Normal Extension (L3) 5 Normal Ankle/Foot Strength Ankle and Foot Manual Muscle Testing Right Dorsiflexion (L4) 5 Normal Left Dorsiflexion (L4) 5 Normal PT-OP-Q Treatments Start: 10/28/22 10:48 Freq: Status: Active Protocol: Document 02/13/23 17:12 (Rec: 02/13/23 17:25 [id number]) Cardio Equipment Recumbent Bicycle Duration (Minutes) 7 Resistance 7-10 Seat Position 5 Other fwd and backwards around Gym Equipment Shuttle Recovery Unilateral Squats Details B Resistance #75 Shuttle Recovery Platform Stable Reps/Time 15ea Bilateral Squats Resistance 125# Shuttle Recovery Platform Stable Reps/Time 20 cues for slow and controlled Therapeutic Exercises Supine Exercises heel slides Supine Exercise Name on wall Side left Reps/Minutes 12x Comments encouraged to hold in flexed as tolerated Standing Exercises squat Standing Exercise Name Squat @bar Side bilateral Reps/Minutes 10x Comments max cues for hip hinge and to not go straight down Manual Therapy Treatment Soft Tissue Mobilization calf Body Location circumfrential Mobilization Type Myofascial Release Intensity/Depth Superficial Comments supine w/legs elevated on wall L knee flexed ITB Body Location L Comments supine w/legs elevated on wall L knee flexed Knee Comments plunger to distal ITB and patellar tendon & quad supine w/legs elevated on wall L knee flexed scar Intensity/Depth Superficial Comments plunger & MFR supine w/legs elevated on wall L knee flexed post Body Location L HS Comments w/knee flex/ext supine w/legs elevated on wall L knee flexed PT-OP-R Modalities Start: 10/28/22 10:48 Freq: Status: Active Protocol: Document 02/13/23 17:12 (Rec: 02/13/23 17:19 [id number]) Hot Pack/Cold Pack Treatment Cold Pack Location L knee ant & post& R knee Patient Position Hooklying Treatment Duration (minutes) 10 PT-OP-T Assessment and Plan Start: 10/28/22 10:48 Freq: Status: Active Protocol: Document 02/13/23 17:12 (Rec: 02/13/23 17:19 [id number]) Physical Therapy Assessment Goals strength Short Term Goal (STG) Pt will be indep w/HEP 12/12-pt indep but inconsistant STG Duration achieved Cargo Broker Goal (LTG) Pt will score at least 4+/5 LLE MMT to show improved strangth to allow pt to do activities like camping and walking and chores w/o difficulty 12/12-improving LTG Duration achieved 01/06 walking Short Term Goal (STG) Pt will be able to amb safely w/o AD in the house STG Duration achieved Detention Goal (LTG) Pt will be able to go for 1 mile walks w/o AD w/o pain greater than 2/10 12/12-can do 1/4 mile 01/06-1/2 mile w/o much inc pain 02/11- pt reports not walking much LTG Duration 03/25/23 LEFS Impairment 13 Short Term Goal (STG) Pt will improve LEFS to at least 34/80 to show improved functional ability. 12/12- STG Duration achieved Cargo Broker Goal (LTG) Pt will improve LEFS to at least 54/80 to show improved functional ability. 01/06- 02/11- 51/80 LTG Duration 03/25/23 ROM Short Term Goal (STG) Pt will improve ROM to 0-100 12/12-improved to 3-107 02/11- improved 2-118 STG Duration 02/22/23 Cargo Broker Goal (LTG) Pt will improve ROM to 0-125 to allow good ROM for stairs and gait. 02/11- 2-118 LTG Duration 03/25/23 Assessment Summary Assessment pt noted less discomfort in B knees w/mini squats at rail when she was cued to not go straight down and hinge. Manaul was done w/pt lying supine w/legs elevated on wall in heel slides for increased knee flexion. Pt demonstrated increased ROM following manual increasing from 115deg to 120deg. Physical Therapy Plan Next Visit Focus/Plan Next Note Type Treatment Note Next Visit Plan work on glute control and knee tracking, PNF for gait, Check in on HEP
--- NOTE | 2023-02-18 17:42 | PT.OTN ---
Addendum entered and electronically signed by Fernanda Novak PT 02/18/23 17:57: PT direct supervision and direction to PT student. Original Note: Current Diagnoses Bilateral primary osteoarthritis of knee (02/18/23) Difficulty in walking, not elsewhere classified (02/18/23) Weakness (02/18/23) Presence of left artificial knee joint (02/18/23) Physical Therapy Treatment Note PT-OP-A Visit Information Start: 10/28/22 10:48 Freq: Status: Active Protocol: Document 02/18/23 13:11 (Rec: 02/18/23 13:22 [id number]) Out-Patient Physical Therapy Visit Information Visit Information Visit Type Treatment Note Visit Note 01/27 Visit Start Time 11:25 Visit Stop Time 12:05 Total Visit Minutes 40 Visit Number 22 Number of STOCK LETTERER Visits 0 PT-OP-B Current Condition Start: 10/28/22 10:48 Freq: Status: Active Protocol: Document 11/04/22 12:57 [facility] (Rec: 11/04/22 13:49 [facility] [id number]) Current Condition History of Current Condition Current Complaints L partial knee replacement History of Current Condition Pt reports she went to the ER to clarify no blood clot and it was negative. She is taking 1-2 pain pills every 8 hours typically. she started her celebrex back too. It is throbbing. She has been just doing APs and walking but wasn 't given instruction of what to do. Pt has an ice machine and it has been super helpful. She has had some trouble w/ compression stockings. Pt reports she has been using the walker in the house and has tried some w/o anything but almost fell when she turned too quick and there was a lot of pain. Treatment Goals Patient/Caregiver Goals get back to camping, get back to walks, be indep w/ADLs , get back to cooking PT-OP-C Subjective Start: 10/28/22 10:48 Freq: Status: Active Protocol: Document 02/18/23 13:11 (Rec: 02/18/23 13:22 [id number]) OP-PT Subjective Patient Comments Patient Comments Pt [place] [employer] [place]. Her dog pulled her and she fell on her hip. Pt has some discomofrt on her side and hip. She hasnt noticed any changes in how she walks. She did not hurt her knee. PT-OP-G Mobility & Gait Start: 10/28/22 10:48 Freq: Status: Active Protocol: Document 11/04/22 12:57 [facility] (Rec: 11/04/22 13:49 [facility] [id number]) OP Gait Assessment Comments Gait Comments dec stance time on LLE; amb w/ FWW PT-OP-K Range of Motion Start: 10/28/22 10:48 Freq: Status: Active Protocol: Document 02/11/23 17:38 (Rec: 02/11/23 17:56 [id number]) Knee Goniometric Range of Motion Knee Left Flexion Active (degrees) 118 Extension Active (degrees) 2 Comments pain w/flex>ext PT-OP-M Strength Start: 10/28/22 10:48 Freq: Status: Active Protocol: Document 02/11/23 17:38 (Rec: 02/11/23 17:56 [id number]) Hip Strength Hip Manual Muscle Testing Right Flexion (L2) 5 Normal Extension (S1) 4+ Good+ Abduction 4+ Good+ Adduction 5 Normal External Rotation 5 Normal Internal Rotation 5 Normal Left Flexion (L2) 5 Normal Extension (S1) 4+ Good+ Abduction 4+ Good+ Adduction 4+ Good+ External Rotation 4+ Good+ Internal Rotation 5 Normal Knee Strength Knee Manual Muscle Testing Right Flexion (S2) 5 Normal Extension (L3) 5 Normal Left Flexion (S2) 5 Normal Extension (L3) 5 Normal Ankle/Foot Strength Ankle and Foot Manual Muscle Testing Right Dorsiflexion (L4) 5 Normal Left Dorsiflexion (L4) 5 Normal PT-OP-Q Treatments Start: 10/28/22 10:48 Freq: Status: Active Protocol: Document 02/18/23 13:11 (Rec: 02/18/23 13:22 [id number]) Cardio Equipment Recumbent Bicycle Duration (Minutes) 7 Resistance 7-10 Seat Position 5 Other fwd and backwards around Therapeutic Exercises Supine Exercises heel slides Supine Exercise Name on table Side left Reps/Minutes 12x Comments encouraged to hold in flexed as tolerated Manual Therapy Treatment Soft Tissue Mobilization calf Body Location circumfrential Mobilization Type Myofascial Release Intensity/Depth Superficial Comments supine w/ L knee flexed ITB Body Location L Comments 1. supine w/L knee flexed. Ankle DF AROM 2. plunger to distal ITB Knee Comments plunger to distal ITB and patellar tendon & quad supine w/L knee flexed scar Intensity/Depth Superficial Comments plunger & MFR supine w/L knee flexed PT-OP-R Modalities Start: 10/28/22 10:48 Freq: Status: Active Protocol: Document 02/13/23 17:12 (Rec: 02/13/23 17:19 [id number]) Hot Pack/Cold Pack Treatment Cold Pack Location L knee ant & post& R knee Patient Position Hooklying Treatment Duration (minutes) 10 PT-OP-T Assessment and Plan Start: 10/28/22 10:48 Freq: Status: Active Protocol: Document 02/18/23 13:11 (Rec: 02/18/23 13:22 [id number]) Physical Therapy Assessment Goals strength Short Term Goal (STG) Pt will be indep w/HEP 12/12-pt indep but inconsistant STG Duration achieved Penitentiary Goal (LTG) Pt will score at least 4+/5 LLE MMT to show improved strangth to allow pt to do activities like camping and walking and chores w/o difficulty 12/12-improving LTG Duration achieved 01/06 walking Short Term Goal (STG) Pt will be able to amb safely w/o AD in the house STG Duration achieved Penitentiary Goal (LTG) Pt will be able to go for 1 mile walks w/o AD w/o pain greater than 2/10 12/12-can do 1/4 mile 01/06-1/2 mile w/o much inc pain 02/11- pt reports not walking much LTG Duration 03/25/23 LEFS Impairment 13 Short Term Goal (STG) Pt will improve LEFS to at least 34/80 to show improved functional ability. 12/12- STG Duration achieved Penitentiary Goal (LTG) Pt will improve LEFS to at least 54/80 to show improved functional ability. 01/06- 02/11- LTG Duration 03/25/23 ROM Short Term Goal (STG) Pt will improve ROM to 0-100 12/12-improved to 3-107 02/11- improved 2-118 STG Duration 02/22/23 Asparagus Buncher Goal (LTG) Pt will improve ROM to 0-125 to allow good ROM for stairs and gait. 02/11- 2-118 LTG Duration 03/25/23 Assessment Summary Assessment pt had a recent fall so more time was spent on manual today to work on soft tissue and increase ROM. pts initial L knee ROM prior to manual treatment was 118deg. Following manual treatment her ROM increased to 120deg. Pts gait pattern was not affected by the fall. She is still wt bearing through LLE well. She did note some stiffness as she walked in her hip. Physical Therapy Plan Frequency and Duration Frequency of Treatment 1-2x/week Duration of treatment (weeks) 6 Plan of Care Start Date 02/11/23 Plan of Care End Date 03/25/23 Next Visit Focus/Plan Next Note Type Treatment Note Next Visit Plan work on glute control and knee tracking, PNF for gait, Check in on HEP
--- NOTE | 2023-03-04 16:01 | PT.OTN ---
Current Diagnoses Bilateral primary osteoarthritis of knee (03/04/23) Difficulty in walking, not elsewhere classified (03/04/23) Weakness (03/04/23) Presence of left artificial knee joint (03/04/23) Physical Therapy Treatment Note PT-OP-A Visit Information Start: 10/28/22 10:48 Freq: Status: Active Protocol: Document 03/04/23 15:17 [facility] (Rec: 03/04/23 16:01 [facility] [id number]) Out-Patient Physical Therapy Visit Information Visit Information Visit Type Treatment Note Visit Note 02/27 Visit Start Time 15:16 Visit Stop Time 16:08 Total Visit Minutes 52 Visit Number 23 Number of TATTOO IDENTIFIER Visits 0 PT-OP-B Current Condition Start: 10/28/22 10:48 Freq: Status: Active Protocol: Document 11/04/22 12:57 [facility] (Rec: 11/04/22 13:49 [facility] [id number]) Current Condition History of Current Condition Current Complaints L partial knee replacement History of Current Condition Pt reports she went to the ER to clarify no blood clot and it was negative. She is taking 1-2 pain pills every 8 hours typically. she started her celebrex back too. It is throbbing. She has been just doing APs and walking but wasn 't given instruction of what to do. Pt has an ice machine and it has been super helpful. She has had some trouble w/ compression stockings. Pt reports she has been using the walker in the house and has tried some w/o anything but almost fell when she turned too quick and there was a lot of pain. Treatment Goals Patient/Caregiver Goals get back to camping, get back to walks, be indep w/ADLs , get back to cooking PT-OP-C Subjective Start: 10/28/22 10:48 Freq: Status: Active Protocol: Document 03/04/23 15:17 [facility] (Rec: 03/04/23 16:01 [facility] [id number]) OP-PT Subjective Patient Comments Patient Comments Pt rerports she is seeing Dr. Etienne tomorrow as she is hoping to get a R knee injection and have him look at her L knee. She notes it has been clicking ant recently and having a lat nervey feeling on L side of knee PT-OP-G Mobility & Gait Start: 10/28/22 10:48 Freq: Status: Active Protocol: Document 11/04/22 12:57 [facility] (Rec: 11/04/22 13:49 [facility] [id number]) OP Gait Assessment Comments Gait Comments dec stance time on LLE; amb w/ FWW PT-OP-K Range of Motion Start: 10/28/22 10:48 Freq: Status: Active Protocol: Document 02/11/23 17:38 (Rec: 02/11/23 17:56 [id number]) Knee Goniometric Range of Motion Knee Left Flexion Active (degrees) 118 Extension Active (degrees) 2 Comments pain w/flex>ext PT-OP-M Strength Start: 10/28/22 10:48 Freq: Status: Active Protocol: Document 02/11/23 17:38 (Rec: 02/11/23 17:56 [id number]) Hip Strength Hip Manual Muscle Testing Right Flexion (L2) 5 Normal Extension (S1) 4+ Good+ Abduction 4+ Good+ Adduction 5 Normal External Rotation 5 Normal Internal Rotation 5 Normal Left Flexion (L2) 5 Normal Extension (S1) 4+ Good+ Abduction 4+ Good+ Adduction 4+ Good+ External Rotation 4+ Good+ Internal Rotation 5 Normal Knee Strength Knee Manual Muscle Testing Right Flexion (S2) 5 Normal Extension (L3) 5 Normal Left Flexion (S2) 5 Normal Extension (L3) 5 Normal Ankle/Foot Strength Ankle and Foot Manual Muscle Testing Right Dorsiflexion (L4) 5 Normal Left Dorsiflexion (L4) 5 Normal PT-OP-Q Treatments Start: 10/28/22 10:48 Freq: Status: Active Protocol: Document 03/04/23 15:17 [facility] (Rec: 03/04/23 16:01 [facility] [id number]) Cardio Equipment Recumbent Bicycle Duration (Minutes) 7 Resistance 10 Seat Position 4 Other fwd and backwards around Therapeutic Exercises Standing Exercises squat Standing Exercise Name Squat @bar Side bilateral Reps/Minutes 10x Comments max cues for hip hinge and to not go straight down step down Standing Exercise Name 6 in w/step back Side left Equipment Used no rail Reps/Minutes 10 ea Comments cues slow Manual Therapy Treatment Soft Tissue Mobilization ITB Body Location L Comments 1. supine w/L knee flexed. Ankle DF AROM 2. plunger to distal ITB quad Body Location lat w/knee flex Mobilization Type Rolling scar Intensity/Depth Superficial Comments plunger & MFR supine w/L knee flexed post Body Location L HS Comments w/knee flex Joint Mobilizations tibfib Joint AP on tib and femur and PA on tib and femur patellofemoral Joint L Direction sup, med, inf Grade III Comments FM w/quad set PT-OP-R Modalities Start: 10/28/22 10:48 Freq: Status: Active Protocol: Document 03/04/23 15:17 [facility] (Rec: 03/04/23 16:01 [facility] [id number]) Hot Pack/Cold Pack Treatment Cold Pack Location L knee ant & post& R knee Patient Position Hooklying Treatment Duration (minutes) 10 PT-OP-T Assessment and Plan Start: 10/28/22 10:48 Freq: Status: Active Protocol: Document 03/04/23 15:17 [facility] (Rec: 03/04/23 16:01 [facility] [id number]) Physical Therapy Assessment Goals strength Short Term Goal (STG) Pt will be indep w/HEP 12/12-pt indep but inconsistant STG Duration achieved Correction Goal (LTG) Pt will score at least 4+/5 LLE MMT to show improved strangth to allow pt to do activities like camping and walking and chores w/o difficulty 12/12-improving LTG Duration achieved 01/06 walking Short Term Goal (STG) Pt will be able to amb safely w/o AD in the house STG Duration achieved Correction Goal (LTG) Pt will be able to go for 1 mile walks w/o AD w/o pain greater than 2/10 12/12-can do 1/4 mile 01/06-1/2 mile w/o much inc pain 02/11- pt reports not walking much LTG Duration 03/25/23 LEFS Impairment 13 Short Term Goal (STG) Pt will improve LEFS to at least 34/80 to show improved functional ability. 12/12- STG Duration achieved Correction Goal (LTG) Pt will improve LEFS to at least 54/80 to show improved functional ability. 01/06- 02/11- 80 LTG Duration 03/25/23 ROM Short Term Goal (STG) Pt will improve ROM to 0-100 12/12-improved to 3-107 02/11- improved 2-118 STG Duration 02/22/23 Chimney Repairer Goal (LTG) Pt will improve ROM to 0-125 to allow good ROM for stairs and gait. 02/11- 2-118 LTG Duration 03/25/23 Assessment Summary Assessment Pt had 1-114 after ther ex w/ arcos at end ranges with improvement after manual to 121. Pt encouraged to cont squatting and knee flex ROM exercises at home Physical Therapy Plan Frequency and Duration Frequency of Treatment 1-2x/week Duration of treatment (weeks) 6 Plan of Care Start Date 02/11/23 Plan of Care End Date 03/25/23 Next Visit Focus/Plan Next Note Type Treatment Note Next Visit Plan work on progression of ROM
--- NOTE | 2023-03-11 08:14 | PT.OTN ---
Current Diagnoses Bilateral primary osteoarthritis of knee (03/11/23) Difficulty in walking, not elsewhere classified (03/11/23) Weakness (03/11/23) Presence of left artificial knee joint (03/11/23) Physical Therapy Treatment Note PT-OP-A Visit Information Start: 10/28/22 10:48 Freq: Status: Active Protocol: Document 03/11/23 07:31 [facility] (Rec: 03/11/23 08:13 [facility] [id number]) Out-Patient Physical Therapy Visit Information Visit Information Visit Type Treatment Note Visit Note 03/30 Visit Start Time 07:28 Visit Stop Time 08:20 Total Visit Minutes 52 Visit Number 24 Number of GENETIC COORDINATOR Visits 0 PT-OP-B Current Condition Start: 10/28/22 10:48 Freq: Status: Active Protocol: Document 11/04/22 12:57 [facility] (Rec: 11/04/22 13:49 [facility] [id number]) Current Condition History of Current Condition Current Complaints L partial knee replacement History of Current Condition Pt reports she went to the ER to clarify no blood clot and it was negative. She is taking 1-2 pain pills every 8 hours typically. she started her celebrex back too. It is throbbing. She has been just doing APs and walking but wasn 't given instruction of what to do. Pt has an ice machine and it has been super helpful. She has had some trouble w/ compression stockings. Pt reports she has been using the walker in the house and has tried some w/o anything but almost fell when she turned too quick and there was a lot of pain. Treatment Goals Patient/Caregiver Goals get back to camping, get back to walks, be indep w/ADLs , get back to cooking PT-OP-C Subjective Start: 10/28/22 10:48 Freq: Status: Active Protocol: Document 03/11/23 07:31 [facility] (Rec: 03/11/23 08:13 [facility] [id number]) OP-PT Subjective Patient Comments Patient Comments Pt reports seeing her ortho who did a xray and said nothing was wrong. There was lucency noted on the prosthetic in xray but MD patricia nothing was wrong. Her lat knee is still sore all the time. Sitting for long periods inc pain. She hasn't been exercising much at home. PT-OP-G Mobility & Gait Start: 10/28/22 10:48 Freq: Status: Active Protocol: Document 11/04/22 12:57 [facility] (Rec: 11/04/22 13:49 [facility] [id number]) OP Gait Assessment Comments Gait Comments dec stance time on LLE; amb w/ FWW PT-OP-K Range of Motion Start: 10/28/22 10:48 Freq: Status: Active Protocol: Document 02/11/23 17:38 (Rec: 02/11/23 17:56 [id number]) Knee Goniometric Range of Motion Knee Left Flexion Active (degrees) 118 Extension Active (degrees) 2 Comments pain w/flex>ext PT-OP-M Strength Start: 10/28/22 10:48 Freq: Status: Active Protocol: Document 02/11/23 17:38 (Rec: 02/11/23 17:56 [id number]) Hip Strength Hip Manual Muscle Testing Right Flexion (L2) 5 Normal Extension (S1) 4+ Good+ Abduction 4+ Good+ Adduction 5 Normal External Rotation 5 Normal Internal Rotation 5 Normal Left Flexion (L2) 5 Normal Extension (S1) 4+ Good+ Abduction 4+ Good+ Adduction 4+ Good+ External Rotation 4+ Good+ Internal Rotation 5 Normal Knee Strength Knee Manual Muscle Testing Right Flexion (S2) 5 Normal Extension (L3) 5 Normal Left Flexion (S2) 5 Normal Extension (L3) 5 Normal Ankle/Foot Strength Ankle and Foot Manual Muscle Testing Right Dorsiflexion (L4) 5 Normal Left Dorsiflexion (L4) 5 Normal PT-OP-Q Treatments Start: 10/28/22 10:48 Freq: Status: Active Protocol: Document 03/11/23 07:31 [facility] (Rec: 03/11/23 08:13 [facility] [id number]) Cardio Equipment Recumbent Bicycle Duration (Minutes) 5 Resistance 8 Seat Position 4 Other fwd and backwards around Gym Equipment Shuttle Recovery Unilateral Squats Details B Resistance #75 Shuttle Recovery Platform Stable Reps/Time 15ea Bilateral Squats Resistance 125# Shuttle Recovery Platform Stable Reps/Time 20 cues for slow and controlled Therapeutic Exercises Supine Exercises bridge Supine Exercise Name alt march Side bilateral Reps/Minutes 5 stretch Supine Exercise Name stephani test Side bilateral Reps/Minutes 1 min ea Standing Exercises squat Standing Exercise Name squat to heel raises Side bilateral Reps/Minutes 12 step down Standing Exercise Name 6 in w/step back Side left Equipment Used no rail Reps/Minutes 12 ea Comments cues slow Manual Therapy Treatment Soft Tissue Mobilization scar Intensity/Depth Superficial Comments MFR supine w/L knee flexed post Body Location L HS distal Mobilization Type Rolling,Sustained Pressure Comments w/knee flex Joint Mobilizations tibfib Joint distraction proximal FM PT-OP-R Modalities Start: 10/28/22 10:48 Freq: Status: Active Protocol: Document 03/11/23 07:31 [facility] (Rec: 03/11/23 08:13 [facility] [id number]) Hot Pack/Cold Pack Treatment Cold Pack Location L knee ant & post& R knee Patient Position Hooklying Treatment Duration (minutes) 10 PT-OP-T Assessment and Plan Start: 10/28/22 10:48 Freq: Status: Active Protocol: Document 03/11/23 07:31 [facility] (Rec: 03/11/23 08:13 [facility] [id number]) Physical Therapy Assessment Goals strength Short Term Goal (STG) Pt will be indep w/HEP 12/12-pt indep but inconsistant STG Duration achieved Detention Goal (LTG) Pt will score at least 4+/5 LLE MMT to show improved strangth to allow pt to do activities like camping and walking and chores w/o difficulty 12/12-improving LTG Duration achieved 01/06 walking Short Term Goal (STG) Pt will be able to amb safely w/o AD in the house STG Duration achieved Equipment Installation Professional Goal (LTG) Pt will be able to go for 1 mile walks w/o AD w/o pain greater than 2/10 12/12-can do 1/4 mile 01/06-1/2 mile w/o much inc pain 02/11- pt reports not walking much LTG Duration 03/25/23 LEFS Impairment 13 Short Term Goal (STG) Pt will improve LEFS to at least 34/80 to show improved functional ability. 12/12- STG Duration achieved Equipment Installation Professional Goal (LTG) Pt will improve LEFS to at least 54/80 to show improved functional ability. 01/06- 02/11- LTG Duration 03/25/23 ROM Short Term Goal (STG) Pt will improve ROM to 0-100 12/12-improved to 3-107 02/11- improved 2-118 STG Duration 02/22/23 Detention Goal (LTG) Pt will improve ROM to 0-125 to allow good ROM for stairs and gait. 02/11- 2-118 LTG Duration 03/25/23 Assessment Summary Assessment Pt had 3-119 after exercsies today She still gets pain lat when bending fully. She is given new handout w/HEP and educated on importance of this and also encouraged to walk Physical Therapy Plan Frequency and Duration Frequency of Treatment 1-2x/week Duration of treatment (weeks) 6 Plan of Care Start Date 02/11/23 Plan of Care End Date 03/25/23 Next Visit Focus/Plan Next Note Type Progress Note Next Visit Plan work ramon MILAN
--- NOTE | 2023-03-19 08:10 | PT.OTN ---
Current Diagnoses Bilateral primary osteoarthritis of knee (03/19/23) Difficulty in walking, not elsewhere classified (03/19/23) Weakness (03/19/23) Presence of left artificial knee joint (03/19/23) Physical Therapy Treatment Note PT-OP-A Visit Information Start: 10/28/22 10:48 Freq: Status: Active Protocol: Document 03/19/23 07:31 [facility] (Rec: 03/19/23 08:10 [facility] [id number]) Out-Patient Physical Therapy Visit Information Visit Information Visit Type Discharge Summary Visit Start Time 07:30 Visit Stop Time 08:08 Total Visit Minutes 38 Visit Number 25 Number of CALCULATOR OPERATOR Visits 0 PT-OP-B Current Condition Start: 10/28/22 10:48 Freq: Status: Active Protocol: Document 11/04/22 12:57 [facility] (Rec: 11/04/22 13:49 [facility] [id number]) Current Condition History of Current Condition Current Complaints L partial knee replacement History of Current Condition Pt reports she went to the ER to clarify no blood clot and it was negative. She is taking 1-2 pain pills every 8 hours typically. she started her celebrex back too. It is throbbing. She has been just doing APs and walking but wasn 't given instruction of what to do. Pt has an ice machine and it has been super helpful. She has had some trouble w/ compression stockings. Pt reports she has been using the walker in the house and has tried some w/o anything but almost fell when she turned too quick and there was a lot of pain. Treatment Goals Patient/Caregiver Goals get back to camping, get back to walks, be indep w/ADLs , get back to cooking PT-OP-C Subjective Start: 10/28/22 10:48 Freq: Status: Active Protocol: Document 03/19/23 07:31 [facility] (Rec: 03/19/23 08:10 [facility] [id number]) OP-PT Subjective Patient Comments Patient Comments Pt reports the past 2 days, she has been walking around [place] w/grandson. She said she got over 10k steps daily. Knees felt okay. Pt notes LE soreness and back sorness PT-OP-G Mobility & Gait Start: 10/28/22 10:48 Freq: Status: Active Protocol: Document 11/04/22 12:57 [facility] (Rec: 11/04/22 13:49 [facility] [id number]) OP Gait Assessment Comments Gait Comments dec stance time on LLE; amb w/ FWW PT-OP-K Range of Motion Start: 10/28/22 10:48 Freq: Status: Active Protocol: Document 03/19/23 07:31 [facility] (Rec: 03/19/23 08:10 [facility] [id number]) Knee Goniometric Range of Motion Knee Left Flexion Active (degrees) 120 Extension Active (degrees) 0 Comments pain w/flex PT-OP-M Strength Start: 10/28/22 10:48 Freq: Status: Active Protocol: Document 03/19/23 07:31 [facility] (Rec: 03/19/23 08:10 [facility] [id number]) Hip Strength Hip Manual Muscle Testing Right Flexion (L2) 5 Normal Extension (S1) 4+ Good+ Abduction 5 Normal Adduction 5 Normal External Rotation 5 Normal Internal Rotation 5 Normal Left Flexion (L2) 4+ Good+ Extension (S1) 5 Normal Abduction 5 Normal Adduction 5 Normal External Rotation 5 Normal Internal Rotation 5 Normal Knee Strength Knee Manual Muscle Testing Right Flexion (S2) 5 Normal Extension (L3) 5 Normal Left Flexion (S2) 5 Normal Extension (L3) 5 Normal Ankle/Foot Strength Ankle and Foot Manual Muscle Testing Right Dorsiflexion (L4) 5 Normal Plantarflexion (S1) 4- Good- Comments 7 heel raises Left Dorsiflexion (L4) 5 Normal Plantarflexion (S1) 5 Normal Comments 20 heel raises PT-OP-Q Treatments Start: 10/28/22 10:48 Freq: Status: Active Protocol: Document 03/19/23 07:31 [facility] (Rec: 03/19/23 08:10 [facility] [id number]) Cardio Equipment Recumbent Bicycle Duration (Minutes) 6 Resistance 12 Seat Position 4 Other fwd and backwards around Therapeutic Exercises Supine Exercises bridge Supine Exercise Name alt march Side bilateral Reps/Minutes 10 stretch Supine Exercise Name stephani test Side bilateral Reps/Minutes 30 sec ea Standing Exercises squat Standing Exercise Name squat to heel raises Side bilateral Reps/Minutes 12 step down Standing Exercise Name 6 in w/step back Side left Equipment Used no rail Reps/Minutes 12 ea Comments cues slow PT-OP-R Modalities Start: 10/28/22 10:48 Freq: Status: Active Protocol: Document 03/11/23 07:31 [facility] (Rec: 03/11/23 08:13 [facility] [id number]) Hot Pack/Cold Pack Treatment Cold Pack Location L knee ant & post& R knee Patient Position Hooklying Treatment Duration (minutes) 10 PT-OP-T Assessment and Plan Start: 10/28/22 10:48 Freq: Status: Active Protocol: Document 03/19/23 07:31 [facility] (Rec: 03/19/23 08:10 [facility] [id number]) Physical Therapy Assessment Goals strength Short Term Goal (STG) Pt will be indep w/HEP 12/12-pt indep but inconsistant STG Duration achieved Nursing Home Goal (LTG) Pt will score at least 4+/5 LLE MMT to show improved strangth to allow pt to do activities like camping and walking and chores w/o difficulty 12/12-improving LTG Duration achieved 01/06 walking Short Term Goal (STG) Pt will be able to amb safely w/o AD in the house STG Duration achieved Manufacturing Engineering Intern Goal (LTG) Pt will be able to go for 1 mile walks w/o AD w/o pain greater than 2/10 12/12-can do 1/4 mile 01/06-1/2 mile w/o much inc pain 02/11- pt reports not walking much LTG Duration achieved 03/19 LEFS Impairment 13 Short Term Goal (STG) Pt will improve LEFS to at least 34/80 to show improved functional ability. 12/12-47/ STG Duration achieved Manufacturing Engineering Intern Goal (LTG) Pt will improve LEFS to at least 54/80 to show improved functional ability. 01/06-49/80 02/11- 51/80 LTG Duration achieved to 68/80 ROM Short Term Goal (STG) Pt will improve ROM to 0-100 12/12-improved to 3-107 02/11- improved 2-118 STG Duration achieved Nursing Home Goal (LTG) Pt will improve ROM to 0-125 to allow good ROM for stairs and gait. 02/11- 2-118 LTG Duration 0-120 and able to do stairs Assessment Summary Assessment Pt has made good progress w/PT but does still have discomfort at end range flex. She is encouraged to cont exercises for maintaining strength and cont to wrok on ROM. She has been encouraged to walk. Physical Therapy Plan Discharge Physical Therapy Discharge Reasons Goals Met
== END 2023-03-19 14:37 | disposition home or self-care (01) ==
LOC: PHYS 07:30
PROVIDERS: Family Provider Nurse Practitioner; PCP Nurse Practitioner; Referring Provider Orthopaedic Surgery; Visit Provider Orthopaedic Surgery
DX: M17.0 Bilateral primary osteoarthritis of knee (principal); Z96.652 Presence of left artificial knee joint; R53.1 Weakness; R26.2 Difficulty in walking, not elsewhere classified
CPT/HCPCS: 97010; 97110; 97112; 97140; 97162

== ENCOUNTER → 2023-08-17 15:58 | Outpatient (CLI) | payer MEDICARE, BC, SELFPAY ==
[2023-08-17 16:42] LABS: Influenza A - CEPHEID Flu A NEGATIVE (NEGATIVE); Influenza B - CEPHEID Flu B NEGATIVE (NEGATIVE); Respiratory Syncytial Virus Negative (Negative)
[2023-08-17 16:44] LABS: COVID-19 CEPHEID 4-PLEX PCR Negative (Negative)
== END ==
PROVIDERS: Family Provider Nurse Practitioner; PCP Nurse Practitioner; Visit Provider Physician Assistant
DX: R05.1 Acute cough (principal)
CPT/HCPCS: 0241U

== ENCOUNTER → 2023-09-27 15:18 | Outpatient (CLI) | payer MEDICARE, BC, SELFPAY ==
--- NOTE | 2023-09-27 | DI.MRI.S_ITS ---
PROCEDURE: MR KNEE RT WO CON INDICATIONS: Pain in right knee TECHNIQUE: Noncontrast sagittal PD fast spin echo and T2 fast spin echo with fat saturation, sagittal 3-D FLASH with fat saturation; coronal T1 spin echo and PD fast spin echo with fat saturation, and axial PD fast spin echo with fat saturation through the knee. COMPARISON: [facility], MR, KNEE WITHOUT CONTRAST, 03/27/2017, 15:46. FINDINGS: Image quality: Diagnostic, but there is mild motion artifact Menisci: Medial: Extruded medial meniscus. Complex tear with oblique component and horizontal component involving the body and posterior horn. Lateral: Intact. Meniscopopliteal fascicles maintained. Cruciate ligaments: Intact Medial structures: MCL: Mild periligamentous edema Pes anserine tendons: Mild bursitis, with edema particularly involving the gracilis and sartorius insertions Semimembranosus: Mild insertional tendinopathy Lateral structures: LCL: Mild proximal signal abnormality Biceps femoris: Intact IT band: Intact Popliteus tendon: Intact Anterior structures: Extensor mechanism: Intact. There is [id number] prepatellar edema Fat pads: Mild Hoffa's fat pad edema Medial retinaculum: Intact. Trochlea: Unremarkable morphology. Bone and joint: Bones: No fracture, dislocation, or suspicious edema Cartilage: Moderate cartilage loss throughout the patellofemoral compartment, without subchondral edema. Advanced cartilage loss seen in the medial compartment, with subchondral edema. Multifocal osteophytes. Joint space: Moderate joint effusion Singh's cyst: None Soft tissues: No significant vascular or other soft tissue pathology. IMPRESSION: Complex tear of the medial meniscus. Suspected mild sprains versus prior injury with remodeling of the collateral ligaments. Cruciate ligaments appear intact. Moderate joint effusion. Edema is seen in the prepatellar soft tissues and Hoffa's fat pad. Moderate cartilage loss of the patellofemoral compartment and advanced cartilage loss with subchondral edema of the medial compartment. Multifocal osteophytes. Possible mild bursitis and partial tears of the pes anserine tendons Dictated by: Curry Longo M.D. on 09/29/2023 at 10:18 Approved by: Curry Longo M.D. on 09/29/2023 at 10:24
== END ==
PROVIDERS: Family Provider Nurse Practitioner; PCP Nurse Practitioner; Referring Provider Orthopaedic Surgery Adult Reconstructive Orthopaedic Surgery; Visit Provider Orthopaedic Surgery Adult Reconstructive Orthopaedic Surgery
DX: S83.231A Complex tear of medial meniscus, current injury, right knee, initial encounter (principal); M25.461 Effusion, right knee; M79.4 Hypertrophy of (infrapatellar) fat pad; M25.561 Pain in right knee
CPT/HCPCS: 73721

== ENCOUNTER → 2023-10-12 11:28 | Outpatient (CLI) | payer MEDICARE, BC, SELFPAY ==
--- NOTE | 2023-10-12 11:29 | DI.RAD.S_ITS ---
PROCEDURE: XR RIBS RT MIN 3V W CXR 1V INDICATIONS: Right rib pain TECHNIQUE: 2 views of the ribs were acquired, along with a single view chest. COMPARISON: None. FINDINGS: Surgical changes and devices: None. Bones and chest wall: No fractures or dislocations. No suspicious bony lesions. Overlying soft tissues appear unremarkable. Lungs and pleura: No pleural effusions or pneumothorax. Lungs appear clear. Mediastinum: Mediastinal contours appear normal. Heart size is normal. IMPRESSION: No displaced rib fracture or pneumothorax. Dictated by: Skye Ventura M.D. on 10/12/2023 at 13:23 Approved by: Skye Ventura M.D. on 10/12/2023 at 13:23
== END ==
PROVIDERS: Family Provider Nurse Practitioner; PCP Nurse Practitioner; Referring Provider Nurse Practitioner Family; Visit Provider Nurse Practitioner Family
DX: R07.81 Pleurodynia (principal)
CPT/HCPCS: 71101

== ENCOUNTER → 2023-10-21 09:21 | Outpatient (CLI) | payer MEDICARE, BC, SELFPAY ==
--- NOTE | 2023-10-21 09:22 | DI.MG.S_ITS ---
BILATERAL DIGITAL SCREENING MAMMOGRAM 3D/2D WITH CAD: 10/21/2023 CLINICAL: Routine screening. Family history of breast cancer. Comparison is made to exams dated: 10/17/2022 mammogram, 10/08/2021 mammogram, 07/03/2020 mammogram, and 06/23/2020 mammogram - [facility]. There are scattered areas of fibroglandular density in both breasts (category b / 25%-50% glandular tissue). Current study was also evaluated with a Computer Aided Detection (CAD) system. No significant masses, calcifications, or other findings are seen in either breast. There has been no significant interval change. IMPRESSION: NEGATIVE There is no mammographic evidence of malignancy. A 1 year screening mammogram is recommended. Based on the Tyrer Cuzick model (a risk assessment model) the patient's lifetime risk is 5.4% and her 10 year risk is 3.4%. According to the ACR, ACS, and NCCN guidelines, an annual breast MRI exam along with mammogram is recommended if the patient's lifetime risk is 20% or greater. This exam was interpreted at Station ID: [id number]. NOTE: For mammograms, a report in lay terms will be sent to the patient. Approximately 15% of breast malignancies will not be visualized mammographically. In the management of a palpable breast mass, a negative mammogram must not discourage biopsy of a clinically suspicious lesion. Electronically Signed By: Pete hoffman/azael:10/21/2023 12:52:35 letter sent: Normal Exam ACR BI-RADS Category 1: Negative [id number]
== END ==
LOC: MAMMO 09:22
PROVIDERS: Family Provider Nurse Practitioner; PCP Nurse Practitioner; Referring Provider Nurse Practitioner; Visit Provider Nurse Practitioner
DX: Z12.31 Encounter for screening mammogram for malignant neoplasm of breast (principal); Z80.3 Family history of malignant neoplasm of breast; R92.323 Mammographic fibroglandular density, bilateral breasts
CPT/HCPCS: 77063; 77067

== ENCOUNTER 2023-11-04 11:02 | Outpatient (RCR) | payer MEDICARE, BC, SELFPAY ==
--- NOTE | 2023-11-04 16:33 | PT.OIE ---
Current Diagnoses Unilateral primary osteoarthritis, right knee (11/04/23) Difficulty in walking, not elsewhere classified (11/04/23) Weakness (11/04/23) Past Medical History (Last Reviewed 04/23/23 @ 16:42 by Lance Tucker DO) Degenerative joint disease of knee Facet arthropathy, lumbar Osteoarthrosis Scoliosis Visit Care Team Role Provider Type SEDRICK Moerjon Family Provider Non-Staff Primary Care Provider Specialty: Medical Address: [address] [place] [address], [place], [address] Email: John Lambert MD Attending Provider Physician Referring Provider Specialty: Orthopedics Orthopedic Surgery Address: [address] [place] [address], [place], [address] Email: [email or web address] Physical Therapy Initial Evaluation PT-OP-A Visit Information Start: 10/30/23 11:26 Freq: Status: Active Protocol: Document 11/04/23 11:15 [facility] (Rec: 11/04/23 12:59 [facility] [id number]) Out-Patient Physical Therapy Visit Information Visit Information Visit Type Initial Evaluation Visit Note 07/30 Visit Start Time 11:15 Visit Stop Time 12:00 Visit Number 1 Number of DEPUTY SHERIFF CHIEF Visits 0 PT-OP-B Current Condition Start: 10/30/23 11:26 Freq: Status: Active Protocol: Document 11/04/23 11:15 [facility] (Rec: 11/04/23 12:59 [facility] [id number]) Current Condition History of Current Condition Current Complaints R knee pain-planned UKA History of Current Condition Pt is scheduled for November 24 for partial knee replacement base don MRI noting she only needs it. She has a friend that may be able to come. Chronic knee pain and hx of MICHELLE last year. She has trouble driving sometimes. Pt has her BSC, canes, ice machine, isotope hydrologist. Has to get a tub bench and walker. Pt has back pain also. 2 CARMELA w/bar Treatment Goals Patient/Caregiver Goals going for walking (walking part of [address]), dec pain PT-OP-C Subjective Start: 10/30/23 11:26 Freq: Status: Active Protocol: Document 11/04/23 11:15 [facility] (Rec: 11/04/23 16:23 [facility] [id number]) Patient Questionnaires Lower Extremity Functional Scale LEFS Score 48/80 PT-OP-K Range of Motion Start: 10/30/23 11:26 Freq: Status: Active Protocol: Document 11/04/23 11:15 [facility] (Rec: 11/04/23 12:59 [facility] [id number]) Knee Goniometric Range of Motion Knee Right Flexion Active (degrees) 99 Extension Active (degrees) 11 Left Flexion Active (degrees) 114 Extension Active (degrees) 0 PT-OP-M Strength Start: 10/30/23 11:26 Freq: Status: Active Protocol: Document 11/04/23 11:15 [facility] (Rec: 11/04/23 12:59 [facility] [id number]) Hip Strength Hip Manual Muscle Testing Right Flexion (L2) 4 Good Extension (S1) 4- Good- Abduction 4+ Good+ Adduction 5 Normal External Rotation 3+ Fair+ Internal Rotation 4- Good- Left Flexion (L2) 5 Normal Extension (S1) 4- Good- Abduction 4 Good Adduction 5 Normal External Rotation 4+ Good+ Internal Rotation 4+ Good+ Knee Strength Knee Manual Muscle Testing Right Flexion (S2) 3+ Fair+ Extension (L3) 3+ Fair+ Left Flexion (S2) 5 Normal Extension (L3) 5 Normal Ankle/Foot Strength Ankle and Foot Manual Muscle Testing Right Dorsiflexion (L4) 5 Normal Plantarflexion (S1) 3 Fair Comments can do 1 only d/t pain and weakness Left Dorsiflexion (L4) 5 Normal Plantarflexion (S1) 5 Normal Comments 20 heel raises PT-OP-Q Treatments Start: 10/30/23 11:26 Freq: Status: Active Protocol: Document 11/04/23 11:15 [facility] (Rec: 11/04/23 12:59 [facility] [id number]) Therapeutic Exercises Supine Exercises passive ext Side right Equipment Used towel under heel Reps/Minutes 1 min heel slides Side right Reps/Minutes 10x5 sec SLR Side right Reps/Minutes 10 Comments cues core SAQ Side right Reps/Minutes 10 Comments cues control motion quad set Side right Reps/Minutes 5 sec x8 Comments w/pillow under APs Side bilateral Reps/Minutes 8 Sitting Exercises knee flexion Side right Reps/Minutes 5 sec x5 Gait Training Gait Activity walker Comments cues for step to walk w/walker w/FWW; set up of walker to pt height and edu how to do this for cane and walker at home stairs Comments step to up w/rail and cane and down step to w/cane and bar lat x2 (cues for LLE up then RLE down 1st) Self-Care/Home Management Treatment Education Other Education 7 min: edu on UKA hand out info. edu to get all equipment tanya and practice with it prior to surgery. edu to do exercsies leading up to surgery to practice and improve ROM and strength PT-OP-T Assessment and Plan Start: 10/30/23 11:26 Freq: Status: Active Protocol: Document 11/04/23 11:15 [facility] (Rec: 11/04/23 12:59 [facility] [id number]) Physical Therapy Assessment Rehab Potential Rehabilitation Potential Good Evaluation Complexity Number of Personal Factors/Comorbidities 3 or More Number of Body Systems Impaired 4 or More Clinical Presentation at Evaluation Evolving Impairments Impairments Activity Tolerance, Coordination,Functional Activities,Functional Mobility ,Gait,Pain,Posture,ROM,Soft Tissue Mobility,Strength, Transfers Goals 1 Senior Living Goal (LTG) Pt will be indep w/exercises for surgery and safety w/ mobility prior to surgery. LTG Duration 01/06 Assessment Summary Assessment Pt presents w/chronic R knee pain w/planned R UKA on November 24. She has weakness and significant lack of ROM. She is limited in her mobility and has been unable to get back to walks d/t R knee pain limiting her. She did well with education today and plans to get all equipment this week. She is prepared for surgery and will schedule follow up prior to surgery if needed. Physical Therapy Plan Frequency and Duration Frequency of Treatment prn Duration of treatment (weeks) 8 Plan of Care Start Date 11/04/23 Plan of Care End Date 01/07/24 Therapeutic Interventions Therapeutic Interventions Balance Training,Gait Training ,Home Exercise Program,Joint Mobilizations,Manual Therapy, Neuromuscular Re-education, Patient/Caregiver Education, Self-Care/Home Management,Soft Tissue Mobilization,Taping, Therapeutic Activities, Therapeutic Exercises Modalities Cold Pack/Ice Massage,Electric Stimulation,Hot Packs Next Visit Focus/Plan Next Note Type Re-Evaluation Next Visit Plan review UKA exercises, stepper, gait prn
--- NOTE | 2023-11-04 16:33 | PT.OPPOC ---
Physical, Occupational & Speech Therapy At [facility] Current Diagnoses Unilateral primary osteoarthritis, right knee (11/04/23) Difficulty in walking, not elsewhere classified (11/04/23) Weakness (11/04/23) Visit Care Team Role Provider Type SEDRICK Morejon Family Provider Non-Staff Primary Care Provider Specialty: Medical Address: [address] [place] [address], [place], [address] Email: John Lambert MD Attending Provider Physician Referring Provider Specialty: Orthopedics Orthopedic Surgery Address: [address] [place] [address], [place], [address] Email: [email or web address] Plan Of Care PT-OP-T Assessment and Plan Start: 10/30/23 11:26 Freq: Status: Active Protocol: Document 11/04/23 11:15 [facility] (Rec: 11/04/23 12:59 [facility] [id number]) Physical Therapy Assessment Rehab Potential Rehabilitation Potential Good Evaluation Complexity Number of Personal Factors/Comorbidities 3 or More Number of Body Systems Impaired 4 or More Clinical Presentation at Evaluation Evolving Impairments Impairments Activity Tolerance, Coordination,Functional Activities,Functional Mobility ,Gait,Pain,Posture,ROM,Soft Tissue Mobility,Strength, Transfers Goals 1 Lace Pinner Goal (LTG) Pt will be indep w/exercises for surgery and safety w/ mobility prior to surgery. LTG Duration 01/06 Assessment Summary Assessment Pt presents w/chronic R knee pain w/planned R UKA on November 24. She has weakness and significant lack of ROM. She is limited in her mobility and has been unable to get back to walks d/t R knee pain limiting her. She did well with education today and plans to get all equipment this week. She is prepared for surgery and will schedule follow up prior to surgery if needed. Physical Therapy Plan Frequency and Duration Frequency of Treatment prn Duration of treatment (weeks) 8 Plan of Care Start Date 11/04/23 Plan of Care End Date 01/07/24 Therapeutic Interventions Therapeutic Interventions Balance Training,Gait Training ,Home Exercise Program,Joint Mobilizations,Manual Therapy, Neuromuscular Re-education, Patient/Caregiver Education, Self-Care/Home Management,Soft Tissue Mobilization,Taping, Therapeutic Activities, Therapeutic Exercises Modalities Cold Pack/Ice Massage,Electric Stimulation,Hot Packs Next Visit Focus/Plan Next Note Type Re-Evaluation Next Visit Plan review UKA exercises, stepper, gait prn Plan of Care Dates Plan of Care Start Date 11/04/23 Plan of Care End Date 01/07/24 Electronically Signed by: Fernanda Novak, PT 11/04/23 1440 If you are in agreement with this Plan of Care, please return a signed and dated copy. I have reviewed this Plan of Care and certify that the skilled therapy services above are required to meet the patient?s needs. Physician Signature Date Printed Name and Credentials Clinical Instructor Signature Printed Name and Credentials
--- NOTE | 2023-12-01 09:21 | PT.OPDS ---
Current Diagnoses Unilateral primary osteoarthritis, right knee (11/04/23) Difficulty in walking, not elsewhere classified (11/04/23) Weakness (11/04/23) Visit Care Team Role Provider Type SEDRICK Morejon Family Provider Non-Staff Primary Care Provider Specialty: Medical Address: [address] [place] [address], [phone] Email: John Lambert MD Attending Provider Physician Referring Provider Specialty: Orthopedics Orthopedic Surgery Address: [address] [place] [address], [place], [address] Email: [email or web address] Visit Number Visit Number 1 Discharge Summary PT-OP-B Current Condition Start: 10/30/23 11:26 Freq: Status: Active Protocol: Document 11/04/23 11:15 [facility] (Rec: 11/04/23 12:59 [facility] [id number]) Current Condition History of Current Condition Current Complaints R knee pain-planned UKA History of Current Condition Pt is scheduled for November 24 for partial knee replacement base don MRI noting she only needs it. She has a friend that may be able to come. Chronic knee pain and hx of MICHELLE last year. She has trouble driving sometimes. 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 Has to get a tub bench and walker. Pt has back pain also. 2 CARMELA w/bar Treatment Goals Patient/Caregiver Goals going for walking (walking [place] of [place]), dec pain PT-OP-C Subjective Start: 10/30/23 11:26 Freq: Status: Active Protocol: Document 11/04/23 11:15 [facility] (Rec: 11/04/23 16:23 [facility] [id number]) Patient Questionnaires Lower Extremity Functional Scale LEFS Score 48/80 PT-OP-K Range of Motion Start: 10/30/23 11:26 Freq: Status: Active Protocol: Document 11/04/23 11:15 [facility] (Rec: 11/04/23 12:59 [facility] [id number]) Knee Goniometric Range of Motion Knee Right Flexion Active (degrees) 99 Extension Active (degrees) 11 Left Flexion Active (degrees) 114 Extension Active (degrees) 0 PT-OP-M Strength Start: 10/30/23 11:26 Freq: Status: Active Protocol: Document 11/04/23 11:15 [facility] (Rec: 11/04/23 12:59 [facility] [id number]) Hip Strength Hip Manual Muscle Testing Right Flexion (L2) 4 Good Extension (S1) 4- Good- Abduction 4+ Good+ Adduction 5 Normal External Rotation 3+ Fair+ Internal Rotation 4- Good- Left Flexion (L2) 5 Normal Extension (S1) 4- Good- Abduction 4 Good Adduction 5 Normal External Rotation 4+ Good+ Internal Rotation 4+ Good+ Knee Strength Knee Manual Muscle Testing Right Flexion (S2) 3+ Fair+ Extension (L3) 3+ Fair+ Left Flexion (S2) 5 Normal Extension (L3) 5 Normal Ankle/Foot Strength Ankle and Foot Manual Muscle Testing Right Dorsiflexion (L4) 5 Normal Plantarflexion (S1) 3 Fair Comments can do 1 only d/t pain and weakness Left Dorsiflexion (L4) 5 Normal Plantarflexion (S1) 5 Normal Comments 20 heel raises PT-OP-T Assessment and Plan Start: 10/30/23 11:26 Freq: Status: Active Protocol: Document 12/01/23 09:11 [facility] (Rec: 12/01/23 09:20 [facility] [id number]) Physical Therapy Assessment Goals 1 [facility] Goal (LTG) Pt will be indep w/exercises for surgery and safety w/ mobility prior to surgery. LTG Duration achieved Assessment Summary Assessment Pt had TKA surgery and new chart opened for post op. Pt did well with pre-op education and vverbalized and demonstrated understanding at 11/03 visit. Physical Therapy Plan Discharge Physical Therapy Discharge Reasons Change in Medical Status
== END 2023-12-03 13:28 | disposition home or self-care (01) ==
LOC: PHYS 11:02
PROVIDERS: Family Provider Nurse Practitioner; PCP Nurse Practitioner; Referring Provider Orthopaedic Surgery Adult Reconstructive Orthopaedic Surgery; Visit Provider Orthopaedic Surgery Adult Reconstructive Orthopaedic Surgery
DX: R26.2 Difficulty in walking, not elsewhere classified (principal); R53.1 Weakness; M17.11 Unilateral primary osteoarthritis, right knee
CPT/HCPCS: 97110; 97116; 97162

== ENCOUNTER 2024-02-26 13:00 | Outpatient (RCR) | payer MEDICARE, BC, SELFPAY ==
--- NOTE | 2023-12-02 17:58 | PT.OIE ---
Current Diagnoses Unilateral primary osteoarthritis, right knee (12/02/23) Difficulty in walking, not elsewhere classified (12/02/23) Weakness (12/02/23) Past Medical History (Last Reviewed 04/23/23 @ 16:42 by Lance Tucker DO) Degenerative joint disease of knee Facet arthropathy, lumbar Osteoarthrosis Scoliosis Visit Care Team Role Provider Type SEDRICK Morejon Family Provider Non-Staff Primary Care Provider Specialty: Medical Address: [address] [place] [address], [place], [address] Email: Hernan Summers PA-C Attending Provider Non-Staff Referring Provider Specialty: Medical Address: [address] [place] [address] , [place], [address] Email: Physical Therapy Initial Evaluation PT-OP-A Visit Information Start: 12/01/23 09:21 Freq: Status: Active Protocol: Document 12/02/23 14:45 [facility] (Rec: 12/02/23 16:51 [facility] [id number]) Out-Patient Physical Therapy Visit Information Visit Information Visit Type Initial Evaluation Visit Start Time 16:09 Visit Stop Time 16:49 Visit Number 1 Number of NOVELTY MAKER Visits 0 PT-OP-B Current Condition Start: 12/01/23 09:21 Freq: Status: Active Protocol: Document 12/02/23 14:45 [facility] (Rec: 12/02/23 16:51 [facility] [id number]) Current Condition History of Current Condition Onset Date 11/25 Current Complaints R UKA History of Current Condition Pt had R UKA w/knee block and has started to dec frequency of pain meds. SHe had a lot of pain w/keeping knee bent. Pt has follow up next w/PA and will see the provider at 4 -6 weeks post op. Hx of L UKA about 1 year ago. 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 She has been compliant w/exercises and has done well in her home. She has friends helping her Treatment Goals Patient/Caregiver Goals be able to walk, be able to drive, play tennis , improve balance PT-OP-C Subjective Start: 12/01/23 09:21 Freq: Status: Active Protocol: Document 12/02/23 14:45 [facility] (Rec: 12/02/23 16:51 [facility] [id number]) Patient Questionnaires Lower Extremity Functional Scale LEFS Score 5 PT-OP-F Manual Assessment Start: 12/01/23 09:21 Freq: Status: Active Protocol: Document 12/02/23 14:45 [facility] (Rec: 12/02/23 16:51 [facility] [id number]) Manual Assessments Soft Tissue Assessment Soft Tissue Mobility Assessment pt swollen in lower leg and knee but limited bruising in ant knee; some bleeding at inf incision only PT-OP-G Mobility & Gait Start: 12/01/23 09:21 Freq: Status: Active Protocol: Document 12/02/23 14:45 [facility] (Rec: 12/02/23 16:51 [id number] OP Gait Assessment Assistive Devices Assistive Device Front Wheeled Walker Gait Deviations General Gait Pattern Antalgic,Decreased Stride Length,Decreased Feet Clearance,Flexed Trunk PT-OP-K Range of Motion Start: 12/01/23 09:21 Freq: Status: Active Protocol: Document 12/02/23 14:45 [facility] (Rec: 12/02/23 16:51 [facility] [id number]) Knee Goniometric Range of Motion Knee Right Flexion Active (degrees) 77 Extension Active (degrees) 15 PT-OP-M Strength Start: 12/01/23 09:21 Freq: Status: Active Protocol: Document 12/02/23 14:45 [facility] (Rec: 12/02/23 16:51 [facility] [id number]) Hip Strength Hip Manual Muscle Testing Right Flexion (L2) 3 Fair Abduction 4- Good- External Rotation 3 Fair Internal Rotation 4- Good- Left Flexion (L2) 4 Good Abduction 5 Normal External Rotation 5 Normal Internal Rotation 5 Normal Knee Strength Knee Manual Muscle Testing Right Flexion (S2) 3+ Fair+ Extension (L3) 3+ Fair+ Left Extension (L3) 5 Normal Ankle/Foot Strength Ankle and Foot Manual Muscle Testing Right Dorsiflexion (L4) 4 Good Plantarflexion (S1) 4 Good Comments PF tested seated B Left Dorsiflexion (L4) 5 Normal Plantarflexion (S1) 5 Normal PT-OP-Q Treatments Start: 12/01/23 09:21 Freq: Status: Active Protocol: Document 12/02/23 14:45 [facility] (Rec: 12/02/23 16:51 [facility] [id number]) Cardio Equipment Recumbent Elliptical (Biodex) Duration (Minutes) 6 Resistance 0 Seat Position 7 Therapeutic Exercises Supine Exercises heel slides Side right Reps/Minutes 5 sec x10 SLR Side right Reps/Minutes 6 Comments cues quad set first SAQ Side right Reps/Minutes 5 secx10 APs Side bilateral Reps/Minutes 10 ext Supine Exercise Name hang on pillow Side right Reps/Minutes 1 minx2 quad set Side right Reps/Minutes 5 secx10 Sitting Exercises knee flex Side right Reps/Minutes 10 sec x4 PT-OP-T Assessment and Plan Start: 12/01/23 09:21 Freq: Status: Active Protocol: Document 12/02/23 14:45 [facility] (Rec: 12/02/23 16:51 [facility] [id number]) Physical Therapy Assessment Rehab Potential Rehabilitation Potential Excellent Evaluation Complexity Number of Personal Factors/Comorbidities 3 or More Number of Body Systems Impaired 4 or More Clinical Presentation at Evaluation Evolving Impairments Impairments Activity Tolerance,Balance, Functional Activities, Functional Mobility,Gait,Pain, Posture,ROM,Soft Tissue Mobility,Strength,Transfers Goals stairs Short Term Goal (STG) Pt will be able to recip up stairs w/o rail STG Duration 01/17 Yolk Spray Drier Goal (LTG) pt will be able to recip down stairs w/o rail LTG Duration 02/23 activity Short Term Goal (STG) Pt will be able to do 1 mile walks without pain in R knee greater than 3/10 STG Duration 01/17 Half-Way Goal (LTG) pt will be able to go for 2 mile walks w/o inc pain in knee greater than 1/10 LTG Duration 02/23 balance Half-Way Goal (LTG) Pt willb e able to stand SLS B 10 sec ea LTG Duration 02/23 strength Short Term Goal (STG) pt will be indep w/HEP STG Duration 01/17 Half-Way Goal (LTG) pt will score 5/5 B LEs to show improved stability for ability to do stairs. ROM Short Term Goal (STG) Pt will have 5-100 deg ROM to allow improved mobility. STG Duration 01/02 Yolk Spray Drier Goal (LTG) Pt will have 0-120 deg ROM of R knee to allow improved mobility and ease w/stairs LTG Duration 8/ Assessment Summary Assessment Pt 1 wk s/p R UKA with overall good ROM and pain control and good gait w/FWW. FWW was adjusted to fit pt better and she had improved gait pattern w/adjustment. She has inc swelling as to be expected after recent UKA that likely affects limitation in ROM and strength of RLE. She is hoping to now start walking as she recovers from UKA R as she is now recovered from UKA last year and wants to be able to have improved balance. She would benefit from skilled PT to improve her mobility and strength in order to make ADLs and rec activities easier for her. Physical Therapy Plan Frequency and Duration Frequency of Treatment 2x/Week Duration of treatment (weeks) 12 Plan of Care Start Date 12/02/23 Plan of Care End Date 02/24/24 Therapeutic Interventions Therapeutic Interventions Balance Training,Gait Training ,Home Exercise Program,Joint Mobilizations,Manual Therapy, Neuromuscular Re-education, Patient/Caregiver Education, Self-Care/Home Management,Soft Tissue Mobilization,Taping, Therapeutic Activities, Therapeutic Exercises Modalities Cold Pack/Ice Massage,Electric Stimulation,Hot Packs Next Visit Focus/Plan Next Note Type Treatment Note Next Visit Plan review exercises, stepper, work on gait (see if able to use SPC as pt noted at end sometimes not using walker), ball flex, heel raises, STM to leg, leg press as able
--- NOTE | 2023-12-02 17:58 | PT.OPPOC ---
Physical, Occupational & Speech Therapy At [facility] Current Diagnoses Unilateral primary osteoarthritis, right knee (12/02/23) Difficulty in walking, not elsewhere classified (12/02/23) Weakness (12/02/23) Visit Care Team Role Provider Type SEDRICK Morejon Family Provider Non-Staff Primary Care Provider Specialty: Medical Address: [address] [place] [address], [place], [address] Email: Hernan Summers PA-C Attending Provider Non-Staff Referring Provider Specialty: Medical Address: [address] [place] [address] , [place], [address] Email: Plan Of Care PT-OP-T Assessment and Plan Start: 12/01/23 09:21 Freq: Status: Active Protocol: Document 12/02/23 14:45 [facility] (Rec: 12/02/23 16:51 [facility] [id number]) Physical Therapy Assessment Rehab Potential Rehabilitation Potential Excellent Evaluation Complexity Number of Personal Factors/Comorbidities 3 or More Number of Body Systems Impaired 4 or More Clinical Presentation at Evaluation Evolving Impairments Impairments Activity Tolerance,Balance, Functional Activities, Functional Mobility,Gait,Pain, Posture,ROM,Soft Tissue Mobility,Strength,Transfers Goals stairs Short Term Goal (STG) Pt will be able to recip up stairs w/o rail STG Duration 01/17 M[facility] Goal (LTG) pt will be able to recip down stairs w/o rail LTG Duration 02/23 activity Short Term Goal (STG) Pt will be able to do 1 mile walks without pain in R knee greater than 3/10 STG Duration 01/17 Mcc Goal (LTG) pt will be able to go for 2 mile walks w/o inc pain in knee greater than 1/10 LTG Duration 8 balance [employer] Of [employer] Goal (LTG) Pt willb e able to stand SLS B 10 sec ea LTG Duration 02/23 strength Short Term Goal (STG) pt will be indep w/HEP STG Duration 01/17 [facility] Goal (LTG) pt will score 5/5 B LEs to show improved stability for ability to do stairs. ROM Short Term Goal (STG) Pt will have 5-100 deg ROM to allow improved mobility. STG Duration 01/02 M[facility] Goal (LTG) Pt will have 0-120 deg ROM of R knee to allow improved mobility and ease w/stairs LTG Duration 02/22 Assessment Summary Assessment Pt 1 wk s/p R UKA with overall good ROM and pain control and good gait w/FWW. FWW was adjusted to fit pt better and she had improved gait pattern w/adjustment. She has inc swelling as to be expected after recent UKA that likely affects limitation in ROM and strength of RLE. She is hoping to now start walking as she recovers from UKA R as she is now recovered from UKA last year and wants to be able to have improved balance. She would benefit from skilled PT to improve her mobility and strength in order to make ADLs and rec activities easier for her. Physical Therapy Plan Frequency and Duration Frequency of Treatment 2x/Week Duration of treatment (weeks) 12 Plan of Care Start Date 12/02/23 Plan of Care End Date 02/24/24 Therapeutic Interventions Therapeutic Interventions Balance Training,Gait Training ,Home Exercise Program,Joint Mobilizations,Manual Therapy, Neuromuscular Re-education, Patient/Caregiver Education, Self-Care/Home Management,Soft Tissue Mobilization,Taping, Therapeutic Activities, Therapeutic Exercises Modalities Cold Pack/Ice Massage,Electric Stimulation,Hot Packs Next Visit Focus/Plan Next Note Type Treatment Note Next Visit Plan review exercises, stepper, work on gait (see if able to use SPC as pt noted at end sometimes not using walker), ball flex, heel raises, STM to leg, leg press as able Plan of Care Dates Plan of Care Start Date 12/02/23 Plan of Care End Date 02/24/24 Electronically Signed by: Fernanda Novak, PT 12/02/23 2544 If you are in agreement with this Plan of Care, please return a signed and dated copy. I have reviewed this Plan of Care and certify that the skilled therapy services above are required to meet the patient?s needs. Physician Signature Date Printed Name and Credentials Clinical Instructor Signature Printed Name and Credentials
--- NOTE | 2023-12-04 17:41 | PT.OTN ---
Current Diagnoses Unilateral primary osteoarthritis, right knee (12/04/23) Difficulty in walking, not elsewhere classified (12/04/23) Weakness (12/04/23) Physical Therapy Treatment Note PT-OP-A Visit Information Start: 12/01/23 09:21 Freq: Status: Active Protocol: Document 12/04/23 16:53 [facility] (Rec: 12/04/23 17:41 [facility] [id number]) Out-Patient Physical Therapy Visit Information Visit Information Visit Type Treatment Note Visit Note 08/30 Visit Start Time 16:50 Visit Stop Time 17:30 Visit Number 2 Number of LYE BATH OPERATOR Visits 0 PT-OP-B Current Condition Start: 12/01/23 09:21 Freq: Status: Active Protocol: Document 12/02/23 14:45 [facility] (Rec: 12/02/23 16:51 [facility] [id number]) Current Condition History of Current Condition Onset Date 11/25 Current Complaints R UKA History of Current Condition Pt had R UKA w/knee block and has started to dec frequency of pain meds. SHe had a lot of pain w/keeping knee bent. Pt has follow up next Tues w/PA and will see the provider at 4 -6 weeks post op. Hx of L UKA about 1 year ago. 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 She has been compliant w/exercises and has done well in her home. She has friends helping her Treatment Goals Patient/Caregiver Goals be able to walk, be able to drive, play tennis , improve balance PT-OP-C Subjective Start: 12/01/23 09:21 Freq: Status: Active Protocol: Document 12/04/23 16:53 [facility] (Rec: 12/04/23 17:41 [facility] [id number]) OP-PT Subjective Patient Comments Patient Comments Pt was walking around a bit today w/SPC PT-OP-F Manual Assessment Start: 12/01/23 09:21 Freq: Status: Active Protocol: Document 12/02/23 14:45 [facility] (Rec: 12/02/23 16:51 [facility] [id number]) Manual Assessments Soft Tissue Assessment Soft Tissue Mobility Assessment pt swollen in lower leg and knee but limited bruising in ant knee; some bleeding at inf incision only PT-OP-G Mobility & Gait Start: 12/01/23 09:21 Freq: Status: Active Protocol: Document 12/02/23 14:45 [facility] (Rec: 12/02/23 16:51 [facility] [id number]) OP Gait Assessment Assistive Devices Assistive Device Front Wheeled Walker Gait Deviations General Gait Pattern Antalgic,Decreased Stride Length,Decreased Feet Clearance,Flexed Trunk PT-OP-K Range of Motion Start: 12/01/23 09:21 Freq: Status: Active Protocol: Document 12/02/23 14:45 [facility] (Rec: 12/02/23 16:51 [facility] [id number]) Knee Goniometric Range of Motion Knee Right Flexion Active (degrees) 77 Extension Active (degrees) 15 PT-OP-M Strength Start: 12/01/23 09:21 Freq: Status: Active Protocol: Document 12/02/23 14:45 [facility] (Rec: 12/02/23 16:51 [facility] [id number]) Hip Strength Hip Manual Muscle Testing Right Flexion (L2) 3 Fair Abduction 4- Good- External Rotation 3 Fair Internal Rotation 4- Good- Left Flexion (L2) 4 Good Abduction 5 Normal External Rotation 5 Normal Internal Rotation 5 Normal Knee Strength Knee Manual Muscle Testing Right Flexion (S2) 3+ Fair+ Extension (L3) 3+ Fair+ Left Extension (L3) 5 Normal Ankle/Foot Strength Ankle and Foot Manual Muscle Testing Right Dorsiflexion (L4) 4 Good Plantarflexion (S1) 4 Good Comments PF tested seated B Left Dorsiflexion (L4) 5 Normal Plantarflexion (S1) 5 Normal PT-OP-Q Treatments Start: 12/01/23 09:21 Freq: Status: Active Protocol: Document 12/04/23 16:53 [facility] (Rec: 12/04/23 17:41 [facility] [id number]) Cardio Equipment Recumbent Elliptical (Biodex) Duration (Minutes) 6 Resistance 0 Seat Position 7 Gym Equipment Shuttle Recovery Unilateral Squats Details R Resistance #12 Shuttle Recovery Platform Stable Reps/Time 15 Bilateral Squats Resistance 50# Shuttle Recovery Platform Stable Reps/Time 15 Therapeutic Ball supine Exercise Details B knee flex Ball Size/Color 55 cm Reps/Duration 10 AROM then 5 sec x8 Therapeutic Exercises Supine Exercises heel slides Side right Reps/Minutes 5 Gait Training Gait Activity gait Comments 3 min working on sequencing w/ cane in L hand. Manual Therapy Treatment Soft Tissue Mobilization thigh Body Location R quad, HS,add Mobilization Type Rolling Intensity/Depth Moderate Comments in s/l and w/gentle SLR NUVIA PT-OP-T Assessment and Plan Start: 12/01/23 09:21 Freq: Status: Active Protocol: Document 12/04/23 16:53 [facility] (Rec: 12/04/23 17:41 [facility] [id number]) Physical Therapy Assessment Goals stairs Short Term Goal (STG) Pt will be able to recip up stairs w/o rail STG Duration 01/17 [facility] Goal (LTG) pt will be able to recip down stairs w/o rail LTG Duration 02/23 activity Short Term Goal (STG) Pt will be able to do 1 mile walks without pain in R knee greater than 3/10 STG Duration 01/17 Senior Asic Design Engineer Goal (LTG) pt will be able to go for 2 mile walks w/o inc pain in knee greater than 1/10 LTG Duration 02/23 balance [facility] Goal (LTG) Pt willb e able to stand SLS B 10 sec ea LTG Duration 02/23 strength Short Term Goal (STG) pt will be indep w/HEP STG Duration 01/17 [facility] Goal (LTG) pt will score 5/5 B LEs to show improved stability for ability to do stairs. ROM Short Term Goal (STG) Pt will have 5-100 deg ROM to allow improved mobility. STG Duration 01/02 [facility] Goal (LTG) Pt will have 0-120 deg ROM of R knee to allow improved mobility and ease w/stairs LTG Duration 8/ Assessment Summary Assessment pt did well with cane sequencing after training and had improved gait w/cane and instructed to walk w/cane at home (pt came in w/o AD noting forgot it). She had 85 deg flex prior to manual Physical Therapy Plan Next Visit Focus/Plan Next Note Type Treatment Note Next Visit Plan review cane as needed, try heel raises, ball flex, leg press, ROM exercises, quad engagement exercises, manaul to dec pain
--- NOTE | 2023-12-11 16:33 | PT.OTN ---
Current Diagnoses Unilateral primary osteoarthritis, right knee (12/11/23) Difficulty in walking, not elsewhere classified (12/11/23) Weakness (12/11/23) Physical Therapy Treatment Note PT-OP-A Visit Information Start: 12/01/23 09:21 Freq: Status: Active Protocol: Document 12/11/23 12:55 [facility] (Rec: 12/11/23 16:32 [facility] [id number]) Out-Patient Physical Therapy Visit Information Visit Information Visit Type Treatment Note Visit Note 09/27 Visit [email or web address] Access [email or web address]: [email or web address] Visit Start Time 14:34 Visit Stop Time 15:24 Visit Number 3 Number of DENTAL APPLIANCE REPAIRER Visits 1 PT-OP-B Current Condition Start: 12/01/23 09:21 Freq: Status: Active Protocol: Document 12/02/23 14:45 [facility] (Rec: 12/02/23 16:51 [facility] [id number]) Current Condition History of Current Condition Onset Date 11/25 Current Complaints R UKA History of Current Condition Pt had R UKA w/knee block and has started to dec frequency of pain meds. SHe had a lot of pain w/keeping knee bent. Pt has follow up next w/PA and will see the provider at 4 -6 weeks post op. Hx of L UKA about 1 year ago. 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 She has been compliant w/exercises and has done well in her home. She has friends helping her Treatment Goals Patient/Caregiver Goals be able to walk, be able to drive, play tennis , improve balance PT-OP-C Subjective Start: 12/01/23 09:21 Freq: Status: Active Protocol: Document 12/11/23 12:55 [facility] (Rec: 12/11/23 16:32 AB [id number]) OP-PT Subjective Patient Comments Patient Comments Patient rates pain 4-5/10 right knee. Patient into session without device, reports MD told her she could ambulate without you. AROM right knee flexion. Lacking 12 deg extension to 80 deg flexion AROM right knee start of session PT-OP-F Manual Assessment Start: 12/01/23 09:21 Freq: Status: Active Protocol: Document 12/02/23 14:45 [facility] (Rec: 12/02/23 16:51 [facility] [id number]) Manual Assessments Soft Tissue Assessment Soft Tissue Mobility Assessment pt swollen in lower leg and knee but limited bruising in ant knee; some bleeding at inf incision only PT-OP-G Mobility & Gait Start: 12/01/23 09:21 Freq: Status: Active Protocol: Document 12/02/23 14:45 [facility] (Rec: 12/02/23 16:51 [facility] [id number]) OP Gait Assessment Assistive Devices Assistive Device Front Wheeled Walker Gait Deviations General Gait Pattern Antalgic,Decreased Stride Length,Decreased Feet Clearance,Flexed Trunk PT-OP-K Range of Motion Start: 12/01/23 09:21 Freq: Status: Active Protocol: Document 12/02/23 14:45 [facility] (Rec: 12/02/23 16:51 [facility] [id number]) Knee Goniometric Range of Motion Knee Right Flexion Active (degrees) 77 Extension Active (degrees) 15 PT-OP-M Strength Start: 12/01/23 09:21 Freq: Status: Active Protocol: Document 12/02/23 14:45 [facility] (Rec: 12/02/23 16:51 [facility] [id number]) Hip Strength Hip Manual Muscle Testing Right Flexion (L2) 3 Fair Abduction 4- Good- External Rotation 3 Fair Internal Rotation 4- Good- Left Flexion (L2) 4 Good Abduction 5 Normal External Rotation 5 Normal Internal Rotation 5 Normal Knee Strength Knee Manual Muscle Testing Right Flexion (S2) 3+ Fair+ Extension (L3) 3+ Fair+ Left Extension (L3) 5 Normal Ankle/Foot Strength Ankle and Foot Manual Muscle Testing Right Dorsiflexion (L4) 4 Good Plantarflexion (S1) 4 Good Comments PF tested seated B Left Dorsiflexion (L4) 5 Normal Plantarflexion (S1) 5 Normal PT-OP-Q Treatments Start: 12/01/23 09:21 Freq: Status: Active Protocol: Document 12/11/23 12:55 [facility] (Rec: 12/11/23 16:32 AB [id number]) Therapeutic Exercises Supine Exercises hamstring stretch Supine Exercise Name from hooklying Side right Reps/Minutes 60 sec X 3 knee flexion with feet on wall Side bilateral Reps/Minutes 10 min Comments VC to lower every minute. decreased arlyn to this exercise knee flexion with feet on ball Side bilateral Reps/Minutes 3 min SLR Side right Reps/Minutes 6 Comments cues quad set first Manual Therapy Treatment Soft Tissue Mobilization thigh Body Location quad, HS, for swelling and tamra pat/lat med knee avoiding healing incision Mobilization Type Cross-Friction,Rolling,Other Intensity/Depth Moderate Comments with LE elevated above the heart Self-Care/Home Management Treatment Education Other Education Patient ed to continue using SPC. Patient advised on technique for adjusting height of cane by aligning with wrist when standing in good posture. PT-OP-R Modalities Start: 12/01/23 09:21 Freq: Status: Active Protocol: Document 12/11/23 12:55 [facility] (Rec: 12/11/23 16:32 AB [id number]) Hot Pack/Cold Pack Treatment Cold Pack Location right knee Patient Position Hooklying Comments 10 minutes PT-OP-T Assessment and Plan Start: 12/01/23 09:21 Freq: Status: Active Protocol: Document 12/11/23 12:55 [facility] (Rec: 12/11/23 16:32 [facility] [id number]) Physical Therapy Assessment Goals stairs Short Term Goal (STG) Pt will be able to recip up stairs w/o rail STG Duration 01/17 [facility] Goal (LTG) pt will be able to recip down stairs w/o rail LTG Duration 02/23 activity Short Term Goal (STG) Pt will be able to do 1 mile walks without pain in R knee greater than 3/10 STG Duration 01/17 [facility] Goal (LTG) pt will be able to go for 2 mile walks w/o inc pain in knee greater than 1/10 LTG Duration 02/23 balance [facility] Goal (LTG) Pt willb e able to stand SLS B 10 sec ea LTG Duration 02/23 strength Short Term Goal (STG) pt will be indep w/HEP STG Duration 01/17 [facility] Goal (LTG) pt will score 5/5 B LEs to show improved stability for ability to do stairs. ROM Short Term Goal (STG) Pt will have 5-100 deg ROM to allow improved mobility. STG Duration 01/02 [facility] Goal (LTG) Pt will have 0-120 deg ROM of R knee to allow improved mobility and ease w/stairs LTG Duration 8 Assessment Summary Assessment lacking 9 deg extension to 85 deg flexion AROM right knee end of session, ROM and strength right knee continues to be limited impacting functional mobility.
--- NOTE | 2023-12-16 17:59 | PT.OTN ---
Addendum entered and electronically signed by Fernanda Novak, PT 12/17/23 17:25: PT direct supervision and direction to student PT Bryce Grant throughout session Original Note: Current Diagnoses Unilateral primary osteoarthritis, right knee (12/16/23) Difficulty in walking, not elsewhere classified (12/16/23) Weakness (12/16/23) Physical Therapy Treatment Note PT-OP-A Visit Information Start: 12/01/23 09:21 Freq: Status: Active Protocol: Document 12/16/23 14:35 JG (Rec: 12/16/23 17:02 [id number]) Out-Patient Physical Therapy Visit Information Visit Information Visit Type Treatment Note Visit Start Time 14:32 Visit Stop Time 15:27 Visit Number 4 Number of SHOCK ABSORPTION FLOOR LAYER Visits 0 PT-OP-B Current Condition Start: 12/01/23 09:21 Freq: Status: Active Protocol: Document 12/02/23 14:45 [facility] (Rec: 12/02/23 16:51 [facility] [id number]) Current Condition History of Current Condition Onset Date 11/25 Current Complaints R UKA History of Current Condition Pt had R UKA w/knee block and has started to dec frequency of pain meds. SHe had a lot of pain w/keeping knee bent. Pt has follow up next Tu w/PA and will see the provider at 4 -6 weeks post op. Hx of L UKA about 1 year ago. 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 She has been compliant w/exercises and has done well in her home. She has friends helping her Treatment Goals Patient/Caregiver Goals be able to walk, be able to drive, play tennis , improve balance PT-OP-C Subjective Start: 12/01/23 09:21 Freq: Status: Active Protocol: Document 12/16/23 14:35 JG (Rec: 12/16/23 17:02 [id number]) OP-PT Subjective Patient Comments Patient Comments Pt says that she cried before coming into PT today. She also got a recumbent bike. said she can walk without AD. PT-OP-F Manual Assessment Start: 12/01/23 09:21 Freq: Status: Active Protocol: Document 12/02/23 14:45 [facility] (Rec: 12/02/23 16:51 [facility] [id number]) Manual Assessments Soft Tissue Assessment Soft Tissue Mobility Assessment pt swollen in lower leg and knee but limited bruising in ant knee; some bleeding at inf incision only PT-OP-G Mobility & Gait Start: 12/01/23 09:21 Freq: Status: Active Protocol: Document 12/02/23 14:45 [facility] (Rec: 12/02/23 16:51 [facility] [id number]) OP Gait Assessment Assistive Devices Assistive Device Front Wheeled Walker Gait Deviations General Gait Pattern Antalgic,Decreased Stride Length,Decreased Feet Clearance,Flexed Trunk PT-OP-K Range of Motion Start: 12/01/23 09:21 Freq: Status: Active Protocol: Document 12/02/23 14:45 [facility] (Rec: 12/02/23 16:51 [facility] [id number]) Knee Goniometric Range of Motion Knee Right Flexion Active (degrees) 77 Extension Active (degrees) 15 PT-OP-M Strength Start: 12/01/23 09:21 Freq: Status: Active Protocol: Document 12/02/23 14:45 [facility] (Rec: 12/02/23 16:51 [facility] [id number]) Hip Strength Hip Manual Muscle Testing Right Flexion (L2) 3 Fair Abduction 4- Good- External Rotation 3 Fair Internal Rotation 4- Good- Left Flexion (L2) 4 Good Abduction 5 Normal External Rotation 5 Normal Internal Rotation 5 Normal Knee Strength Knee Manual Muscle Testing Right Flexion (S2) 3+ Fair+ Extension (L3) 3+ Fair+ Left Extension (L3) 5 Normal Ankle/Foot Strength Ankle and Foot Manual Muscle Testing Right Dorsiflexion (L4) 4 Good Plantarflexion (S1) 4 Good Comments PF tested seated B Left Dorsiflexion (L4) 5 Normal Plantarflexion (S1) 5 Normal PT-OP-Q Treatments Start: 12/01/23 09:21 Freq: Status: Active Protocol: Document 12/16/23 14:35 JG (Rec: 12/16/23 17:02 JG [id number]) Cardio Equipment Recumbent Elliptical ([employer]) Duration (Minutes) 6 Resistance 0 Seat Position 6 Therapeutic Exercises Supine Exercises hamstring stretch Supine Exercise Name from hooklying Side right Reps/Minutes 60 sec X 3 knee flexion with feet on ball Supine Exercise Name 1.two feet 2. R foot Side bilateral Reps/Minutes 7x2 w/5 sec hold ea heel slides Side right Reps/Minutes 7 SLR Side right Reps/Minutes 20 Comments Cues to engage quad muscle before lifting leg SAQ Side right Equipment Used Bolster Reps/Minutes 15 quad set Supine Exercise Name w/towel behind femur Side right Equipment Used towel Reps/Minutes 15 Manual Therapy Treatment Soft Tissue Mobilization thigh Body Location HS, Calf for swelling and muscle tightness Mobilization Type Cross-Friction,Rolling,Other Intensity/Depth Moderate Joint Mobilizations Patella [place] Joint Patella Direction sup, inf, med, lat Grade II PT-OP-R Modalities Start: 12/01/23 09:21 Freq: Status: Active Protocol: Document 12/16/23 14:35 JG (Rec: 12/16/23 17:02 JG [id number]) Hot Pack/Cold Pack Treatment Cold Pack Location right knee Patient Position Hooklying Comments 10 minutes PT-OP-T Assessment and Plan Start: 12/01/23 09:21 Freq: Status: Active Protocol: Document 12/16/23 14:35 JG (Rec: 12/16/23 17:02 J [id number]) Physical Therapy Assessment Goals stairs Short Term Goal (STG) Pt will be able to recip up stairs w/o rail STG Duration 01/17 Geotechnician Goal (LTG) pt will be able to recip down stairs w/o rail LTG Duration 02/23 activity Short Term Goal (STG) Pt will be able to do 1 mile walks without pain in R knee greater than 3/10 STG Duration 01/17 Geotechnician Goal (LTG) pt will be able to go for 2 mile walks w/o inc pain in knee greater than 1/10 LTG Duration 02/23 balance Geotechnician Goal (LTG) Pt willb e able to stand SLS B 10 sec ea LTG Duration 02/23 strength Short Term Goal (STG) pt will be indep w/HEP STG Duration 01/17 Geotechnician Goal (LTG) pt will score 5/5 B LEs to show improved stability for ability to do stairs. ROM Short Term Goal (STG) Pt will have 5-100 deg ROM to allow improved mobility. STG Duration 01/02 Longterm Goal (LTG) Pt will have 0-120 deg ROM of R knee to allow improved mobility and ease w/stairs LTG Duration 8 Assessment Summary Assessment Pt is lacking 10 deg of ext and has 95 deg of knee flexion at the end of session, Pain, ROM and strength continue to be a limiting factor due to tightness in the hamstrings, and limited patella mobility. Cueing is needed during SLR, Quad ext and hamstring curls. Physical Therapy Plan Frequency and Duration Frequency of Treatment 2x/Week Duration of treatment (weeks) 12 Plan of Care Start Date 12/02/23 Plan of Care End Date 02/24/24 Next Visit Focus/Plan Next Note Type Treatment Note Next Visit Plan Review cane as needed, SL knee flexion w/ball, heel raises, SLR, manual to improve patella glides and decrease pain
--- NOTE | 2023-12-18 12:08 | PT.OTN ---
Current Diagnoses Unilateral primary osteoarthritis, right knee (12/18/23) Difficulty in walking, not elsewhere classified (12/18/23) Weakness (12/18/23) Physical Therapy Treatment Note PT-OP-A Visit Information Start: 12/01/23 09:21 Freq: Status: Active Protocol: Document 12/18/23 10:59 AB (Rec: 12/18/23 12:08 AB [id number]) Out-Patient Physical Therapy Visit Information Visit Information Visit Type Treatment Note Visit Note 11/27 [email or web address] Access Code: [email or web address] Visit Start Time 11:18 Visit Stop Time 12:02 Visit Number 5 Number of EMBEDDED FIRMWARE DEVELOPER Visits 1 PT-OP-B Current Condition Start: 12/01/23 09:21 Freq: Status: Active Protocol: Document 12/02/23 14:45 [facility] (Rec: 12/02/23 16:51 [facility] [id number]) Current Condition History of Current Condition Onset Date 11/25 Current Complaints R UKA History of Current Condition Pt had R UKA w/knee block and has started to dec frequency of pain meds. SHe had a lot of pain w/keeping knee bent. Pt has follow up next w/PA and will see the provider at 4 -6 weeks post op. Hx of L UKA about 1 year ago. 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 She has been compliant w/exercises and has done well in her home. She has friends helping her Treatment Goals Patient/Caregiver Goals be able to walk, be able to drive, play tennis , improve balance PT-OP-C Subjective Start: 12/01/23 09:21 Freq: Status: Active Protocol: Document 12/18/23 10:59 AB (Rec: 12/18/23 12:08 AB [id number]) OP-PT Subjective Patient Comments Patient Comments Patient reports yesterday she went to [employer] [place] , and then cooked. AROM lacking 9 deg to 88 deg start of session. Patient reports she has no pain when she is not exercising. PT-OP-F Manual Assessment Start: 12/01/23 09:21 Freq: Status: Active Protocol: Document 12/02/23 14:45 [facility] (Rec: 12/02/23 16:51 [facility] [id number]) Manual Assessments Soft Tissue Assessment Soft Tissue Mobility Assessment pt swollen in lower leg and knee but limited bruising in ant knee; some bleeding at inf incision only PT-OP-G Mobility & Gait Start: 12/01/23 09:21 Freq: Status: Active Protocol: Document 12/02/23 14:45 [facility] (Rec: 12/02/23 16:51 [facility] [id number]) OP Gait Assessment Assistive Devices Assistive Device Front Wheeled Walker Gait Deviations General Gait Pattern Antalgic,Decreased Stride Length,Decreased Feet Clearance,Flexed Trunk PT-OP-K Range of Motion Start: 12/01/23 09:21 Freq: Status: Active Protocol: Document 12/02/23 14:45 [facility] (Rec: 12/02/23 16:51 [facility] [id number]) Knee Goniometric Range of Motion Knee Right Flexion Active (degrees) 77 Extension Active (degrees) 15 PT-OP-M Strength Start: 12/01/23 09:21 Freq: Status: Active Protocol: Document 12/02/23 14:45 [facility] (Rec: 12/02/23 16:51 [facility] [id number]) Hip Strength Hip Manual Muscle Testing Right Flexion (L2) 3 Fair Abduction 4- Good- External Rotation 3 Fair Internal Rotation 4- Good- Left Flexion (L2) 4 Good Abduction 5 Normal External Rotation 5 Normal Internal Rotation 5 Normal Knee Strength Knee Manual Muscle Testing Right Flexion (S2) 3+ Fair+ Extension (L3) 3+ Fair+ Left Extension (L3) 5 Normal Ankle/Foot Strength Ankle and Foot Manual Muscle Testing Right Dorsiflexion (L4) 4 Good Plantarflexion (S1) 4 Good Comments PF tested seated B Left Dorsiflexion (L4) 5 Normal Plantarflexion (S1) 5 Normal PT-OP-Q Treatments Start: 12/01/23 09:21 Freq: Status: Active Protocol: Document 12/18/23 10:59 AB (Rec: 12/18/23 12:08 AB [id number]) Cardio Equipment Recumbent Stepper (Sci-Fit) Duration (Minutes) 5 Resistance 2 Seat Position 11 Therapeutic Exercises Supine Exercises hamstring stretch Supine Exercise Name from hooklying Side right Reps/Minutes 60 sec X 3 knee flexion with feet on wall Side bilateral Reps/Minutes 5 min Comments VC to lower heel down wall every minute knee flexion with feet on ball Side bilateral Reps/Minutes 2 min heel slides Side right Reps/Minutes 2X10 quad set Supine Exercise Name w/towel behind femur Side right Equipment Used towel Reps/Minutes 10X 2 Manual Therapy Treatment Soft Tissue Mobilization thigh Body Location quad, HS, peripatellar area Mobilization Type Cross-Friction,Rolling,Other Intensity/Depth Moderate Comments with LE elevated above the heart Joint Mobilizations Patella [place] Joint Patella Direction sup, inf, med, lat, CW and CCW Grade III PT-OP-R Modalities Start: 12/01/23 09:21 Freq: Status: Active Protocol: Document 12/16/23 14:35 JG (Rec: 12/16/23 17:02 JG [id number]) Hot Pack/Cold Pack Treatment Cold Pack Location right knee Patient Position Hooklying Comments 10 minutes PT-OP-T Assessment and Plan Start: 12/01/23 09:21 Freq: Status: Active Protocol: Document 12/18/23 10:59 AB (Rec: 12/18/23 12:08 AB [id number]) Physical Therapy Assessment Goals stairs Short Term Goal (STG) Pt will be able to recip up stairs w/o rail STG Duration 01/17 Crown Ceramist Goal (LTG) pt will be able to recip down stairs w/o rail LTG Duration 02/23 activity Short Term Goal (STG) Pt will be able to do 1 mile walks without pain in R knee greater than 3/10 STG Duration 01/17 Nursing Home Goal (LTG) pt will be able to go for 2 mile walks w/o inc pain in knee greater than 1/10 LTG Duration 02/23 balance Nursing Home Goal (LTG) Pt willb e able to stand SLS B 10 sec ea LTG Duration 02/23 strength Short Term Goal (STG) pt will be indep w/HEP STG Duration 01/17 Nursing Home Goal (LTG) pt will score 5/5 B LEs to show improved stability for ability to do stairs. ROM Short Term Goal (STG) Pt will have 5-100 deg ROM to allow improved mobility. STG Duration 01/02 Nursing Home Goal (LTG) Pt will have 0-120 deg ROM of R knee to allow improved mobility and ease w/stairs LTG Duration 8/ Assessment Summary Assessment lacking 7 deg extension to 94 deg flexion AROM end of session. Patient reports having no pain ambulating out of session with SPC. Physical Therapy Plan Frequency and Duration Frequency of Treatment 2x/Week Duration of treatment (weeks) 12 Plan of Care Start Date 12/02/23 Plan of Care End Date 02/24/24 Next Visit Focus/Plan Next Note Type Treatment Note Next Visit Plan Review cane as needed, SL knee flexion w/ball, heel raises, SLR, manual to improve patella glides and decrease pain. Patellar mobility remains [id number]
--- NOTE | 2023-12-22 16:22 | PT.OTN ---
Current Diagnoses Unilateral primary osteoarthritis, right knee (12/22/23) Difficulty in walking, not elsewhere classified (12/22/23) Weakness (12/22/23) Physical Therapy Treatment Note PT-OP-A Visit Information Start: 12/01/23 09:21 Freq: Status: Active Protocol: Document 12/22/23 12:04 AB (Rec: 12/22/23 15:06 AB [id number]) Out-Patient Physical Therapy Visit Information Visit Information Visit Type Treatment Note Visit Note 12/28 [email or web address] Access Code: [email or web address] Visit Start Time 13:00 Visit Stop Time 13:46 Visit Number 6 Number of DOWEL INSPECTOR Visits 2 PT-OP-B Current Condition Start: 12/01/23 09:21 Freq: Status: Active Protocol: Document 12/02/23 14:45 [facility] (Rec: 12/02/23 16:51 [facility] [id number]) Current Condition History of Current Condition Onset Date 11/25 Current Complaints R UKA History of Current Condition Pt had R UKA w/knee block and has started to dec frequency of pain meds. SHe had a lot of pain w/keeping knee bent. Pt has follow up next w/PA and will see the provider at 4 -6 weeks post op. Hx of L UKA about 1 year ago. 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 She has been compliant w/exercises and has done well in her home. She has friends helping her Treatment Goals Patient/Caregiver Goals be able to walk, be able to drive, play tennis , improve balance PT-OP-C Subjective Start: 12/01/23 09:21 Freq: Status: Active Protocol: Document 12/22/23 12:04 AB (Rec: 12/22/23 15:06 AB [id number]) OP-PT Subjective Patient Comments Patient Comments Patient reports she has been ascending stairs and descending with a reciprocal pattern with no pain, ascends with circumduction right LE descends with increased velocity left LE stance phase, bilateral UE use on rails.SLS right LE 10,9 seconds with out UE use. lacking 9 deg extension to 94 deg flexion AROM right knee PT-OP-F Manual Assessment Start: 12/01/23 09:21 Freq: Status: Active Protocol: Document 12/02/23 14:45 [facility] (Rec: 12/02/23 16:51 [facility] [id number]) Manual Assessments Soft Tissue Assessment Soft Tissue Mobility Assessment pt swollen in lower leg and knee but limited bruising in ant knee; some bleeding at inf incision only PT-OP-G Mobility & Gait Start: 12/01/23 09:21 Freq: Status: Active Protocol: Document 12/02/23 14:45 [facility] (Rec: 12/02/23 16:51 [facility] [id number]) OP Gait Assessment Assistive Devices Assistive Device Front Wheeled Walker Gait Deviations General Gait Pattern Antalgic,Decreased Stride Length,Decreased Feet Clearance,Flexed Trunk PT-OP-K Range of Motion Start: 12/01/23 09:21 Freq: Status: Active Protocol: Document 12/02/23 14:45 [facility] (Rec: 12/02/23 16:51 [facility] [id number]) Knee Goniometric Range of Motion Knee Right Flexion Active (degrees) 77 Extension Active (degrees) 15 PT-OP-M Strength Start: 12/01/23 09:21 Freq: Status: Active Protocol: Document 12/02/23 14:45 [facility] (Rec: 12/02/23 16:51 [facility] [id number]) Hip Strength Hip Manual Muscle Testing Right Flexion (L2) 3 Fair Abduction 4- Good- External Rotation 3 Fair Internal Rotation 4- Good- Left Flexion (L2) 4 Good Abduction 5 Normal External Rotation 5 Normal Internal Rotation 5 Normal Knee Strength Knee Manual Muscle Testing Right Flexion (S2) 3+ Fair+ Extension (L3) 3+ Fair+ Left Extension (L3) 5 Normal Ankle/Foot Strength Ankle and Foot Manual Muscle Testing Right Dorsiflexion (L4) 4 Good Plantarflexion (S1) 4 Good Comments PF tested seated B Left Dorsiflexion (L4) 5 Normal Plantarflexion (S1) 5 Normal PT-OP-Q Treatments Start: 12/01/23 09:21 Freq: Status: Active Protocol: Document 12/22/23 12:04 AB (Rec: 12/22/23 15:06 AB [id number]) Cardio Equipment Recumbent Elliptical (Biodex) Duration (Minutes) 6 Resistance 0 Seat Position 6 Therapeutic Exercises Supine Exercises hamstring stretch Side right Reps/Minutes 60 sec X 2 knee flexion with feet on wall Side bilateral Comments VC to lower heel down wall every minute heel slides Side right Reps/Minutes X10X2 SLR Side right Reps/Minutes 2X10 Comments one set post each hamstring stretch Standing Exercises step up Standing Exercise Name 4 inch step Reps/Minutes X10 Comments verbal and visual cues for step up step back Gait Training Gait Activity gait Description Stairs with 2 rails Distance/Duration 4 steps X 2 Comments VC and visual cues for avoiding circumduction Manual Therapy Treatment Soft Tissue Mobilization thigh Body Location quad, HS, peripatellar area right Mobilization Type Cross-Friction,Rolling,Other Intensity/Depth Moderate Comments with LE elevated above the heart Joint Mobilizations right knee Joint TIBIA ON FEMUR Direction PA Grade IV Body Position Hooklying Reps/Duration 10 X 2 Patella [place] Joint Patella Direction sup, inf, med, lat, CW and CCW Grade III Body Position Supine Reps/Duration X10 X 3 PT-OP-R Modalities Start: 12/01/23 09:21 Freq: Status: Active Protocol: Document 12/16/23 14:35 JG (Rec: 12/16/23 17:02 JG [id number]) Hot Pack/Cold Pack Treatment Cold Pack Location right knee Patient Position Hooklying Comments 10 minutes PT-OP-T Assessment and Plan Start: 12/01/23 09:21 Freq: Status: Active Protocol: Document 12/22/23 12:04 AB (Rec: 12/22/23 15:06 AB [id number]) Physical Therapy Assessment Goals stairs Short Term Goal (STG) Pt will be able to recip up stairs w/o rail STG Duration 01/17 [employer] Goal (LTG) pt will be able to recip down stairs w/o rail LTG Duration 02/23 activity Short Term Goal (STG) Pt will be able to do 1 mile walks without pain in R knee greater than 3/10 STG Duration 01/17 [employer] Goal (LTG) pt will be able to go for 2 mile walks w/o inc pain in knee greater than 1/10 LTG Duration 02/23 balance [employer] Goal (LTG) Pt willb e able to stand SLS B 10 sec ea LTG Duration 02/23 strength Short Term Goal (STG) pt will be indep w/HEP STG Duration 01/17 Longterm Goal (LTG) pt will score 5/5 B LEs to show improved stability for ability to do stairs. ROM Short Term Goal (STG) Pt will have 5-100 deg ROM to allow improved mobility. STG Duration 01/02 Longterm Goal (LTG) Pt will have 0-120 deg ROM of R knee to allow improved mobility and ease w/stairs LTG Duration 02/22 Assessment Summary Assessment lacking 6 deg extension to 95 deg flexion reporting no increased pain end of session Physical Therapy Plan Frequency and Duration Frequency of Treatment 2x/Week Duration of treatment (weeks) 12 Plan of Care Start Date 12/02/23 Plan of Care End Date 02/24/24 Next Visit Focus/Plan Next Note Type Treatment Note Next Visit Plan Review cane as needed, SL knee flexion w/ball, heel raises, SLR, manual to improve patella glides and decrease pain. Patellar mobility remains hypomobile
--- NOTE | 2023-12-25 13:46 | PT.OTN ---
Current Diagnoses Unilateral primary osteoarthritis, right knee (12/25/23) Difficulty in walking, not elsewhere classified (12/25/23) Weakness (12/25/23) Physical Therapy Treatment Note PT-OP-A Visit Information Start: 12/01/23 09:21 Freq: Status: Active Protocol: Document 12/25/23 13:00 SP (Rec: 12/25/23 13:46 SP [id number]) Out-Patient Physical Therapy Visit Information Visit Information Visit Type Treatment Note Visit Note 01/27 Visit Start Time 13:00 Visit Stop Time 13:46 Visit Number 7 Number of BULLDOZER ENGINEER Visits 3 PT-OP-B Current Condition Start: 12/01/23 09:21 Freq: Status: Active Protocol: Document 12/02/23 14:45 LR (Rec: 12/02/23 16:51 [facility] [id number]) Current Condition History of Current Condition Onset Date 11/25 Current Complaints R UKA History of Current Condition Pt had R UKA w/knee block and has started to dec frequency of pain meds. SHe had a lot of pain w/keeping knee bent. Pt has follow up next Tues w/PA and will see the provider at 4 -6 weeks post op. Hx of L UKA about 1 year ago. 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 She has been compliant w/exercises and has done well in her home. She has friends helping her Treatment Goals Patient/Caregiver Goals be able to walk, be able to drive, play tennis , improve balance PT-OP-C Subjective Start: 12/01/23 09:21 Freq: Status: Active Protocol: Document 12/25/23 13:00 SP (Rec: 12/25/23 13:46 SP [id number]) OP-PT Subjective Patient Comments Patient Comments Pt arrives with no SPC. She reports started driving. She helped out ceremony set up carrying plants and other items into [employer] then sat in folding chair for 2.5 hrs during ceremony for Sorpotomist induction which hurt her knees inactivity. She used CP B knees and fell asleep, super stiff when woke up. She didn't have 4 book to do stepping exercise. Has upcoming ortho follow up next week. She requested trial use of recumbent bike due to just acquried 1 for home and hasn't tried yet, seated elliptical bike in PT seems easy. PT-OP-F Manual Assessment Start: 12/01/23 09:21 Freq: Status: Active Protocol: Document 12/02/23 14:45 [facility] (Rec: 12/02/23 16:51 [facility] [id number]) Manual Assessments Soft Tissue Assessment Soft Tissue Mobility Assessment pt swollen in lower leg and knee but limited bruising in ant knee; some bleeding at inf incision only PT-OP-G Mobility & Gait Start: 12/01/23 09:21 Freq: Status: Active Protocol: Document 12/02/23 14:45 [facility] (Rec: 12/02/23 16:51 [facility] [id number]) OP Gait Assessment Assistive Devices Assistive Device Front Wheeled Walker Gait Deviations General Gait Pattern Antalgic,Decreased Stride Length,Decreased Feet Clearance,Flexed Trunk PT-OP-K Range of Motion Start: 12/01/23 09:21 Freq: Status: Active Protocol: Document 12/02/23 14:45 [facility] (Rec: 12/02/23 16:51 [facility] [id number]) Knee Goniometric Range of Motion Knee Right Flexion Active (degrees) 77 Extension Active (degrees) 15 PT-OP-M Strength Start: 12/01/23 09:21 Freq: Status: Active Protocol: Document 12/02/23 14:45 [facility] (Rec: 12/02/23 16:51 [facility] [id number]) Hip Strength Hip Manual Muscle Testing Right Flexion (L2) 3 Fair Abduction 4- Good- External Rotation 3 Fair Internal Rotation 4- Good- Left Flexion (L2) 4 Good Abduction 5 Normal External Rotation 5 Normal Internal Rotation 5 Normal Knee Strength Knee Manual Muscle Testing Right Flexion (S2) 3+ Fair+ Extension (L3) 3+ Fair+ Left Extension (L3) 5 Normal Ankle/Foot Strength Ankle and Foot Manual Muscle Testing Right Dorsiflexion (L4) 4 Good Plantarflexion (S1) 4 Good Comments PF tested seated B Left Dorsiflexion (L4) 5 Normal Plantarflexion (S1) 5 Normal PT-OP-Q Treatments Start: 12/01/23 09:21 Freq: Status: Active Protocol: Document 12/25/23 13:00 SP (Rec: 12/25/23 13:46 SP [id number]) Cardio Equipment Recumbent Elliptical (Biodex) Duration (Minutes) 4 Resistance 0 Seat Position 6 Recumbent Bicycle Duration (Minutes) 2 Resistance 0 Seat Position 4- ed utilize LLE for grading slow pace rocking Other fwd and backwards rock, accidently went bwd revolution pain report-stopped Therapeutic Exercises Supine Exercises knee flexion with feet on wall Side right Resistance AAROM self initially then therapist assist further range as tolerated Equipment Used R heel over 45 cm tball /c strap at ankle Reps/Minutes 1 min x3 sec hold knee flexion stretch Comments cued slow pacing flex/ext heel slides Side right Equipment Used AAROM /c strap Reps/Minutes X10X2 Comments 105deg p ost manual SLR Side right Reps/Minutes 8 reps x2 Comments cue TKE each rep, approx lag 6 deg quad set Side right Equipment Used towel under ankle Comments quick contractions then 5 SH x8 reps Standing Exercises ankle/knee mobility Standing Exercise Name R knee flexion ankle DF- HO next tx if needed Side right Resistance AAROM Equipment Used on 2nd step, rail support Reps/Minutes 10 reps, 2 SH Comments good reports good feel stretch- step up Standing Exercise Name fwd, lateral Side right Equipment Used 6 step, rail support Reps/Minutes X10 Comments verbal and visual cues for step up step back Manual Therapy Treatment Soft Tissue Mobilization scar mobility Body Location R knee Comments manual and discuss self application thigh Body Location R quad, HS, calf, peripatellar Mobilization Type Cross-Friction,Rolling,Other Intensity/Depth Moderate Body Position Prone Comments manual Joint Mobilizations right knee Joint femur on tibia long axis supine, tibia on femur post/ inf glide prone Direction PA Grade III Comments good feedback that feels good Patella [place] Joint R Patella Direction sup, inf, med, lat, CW and CCW Grade III Body Position Supine Reps/Duration X10 X 3 PT-OP-R Modalities Start: 12/01/23 09:21 Freq: Status: Active Protocol: Document 12/16/23 14:35 JG (Rec: 12/16/23 17:02 JG [id number]) Hot Pack/Cold Pack Treatment Cold Pack Location right knee Patient Position Hooklying Comments 10 minutes PT-OP-T Assessment and Plan Start: 12/01/23 09:21 Freq: Status: Active Protocol: Document 12/25/23 13:00 SP (Rec: 12/25/23 13:46 SP [id number]) Physical Therapy Assessment Goals stairs Short Term Goal (STG) Pt will be able to recip up stairs w/o rail STG Duration 01/17 Residential Goal (LTG) pt will be able to recip down stairs w/o rail LTG Duration 02/23 activity Short Term Goal (STG) Pt will be able to do 1 mile walks without pain in R knee greater than 3/10 STG Duration 01/17 Residential Goal (LTG) pt will be able to go for 2 mile walks w/o inc pain in knee greater than 1/10 LTG Duration 02/23 balance Residential Goal (LTG) Pt willb e able to stand SLS B 10 sec ea LTG Duration 02/23 strength Short Term Goal (STG) pt will be indep w/HEP STG Duration 01/17 Residential Goal (LTG) pt will score 5/5 B LEs to show improved stability for ability to do stairs. ROM Short Term Goal (STG) Pt will have 5-100 deg ROM to allow improved mobility. STG Duration 01/02 Manager Review Goal (LTG) Pt will have 0-120 deg ROM of R knee to allow improved mobility and ease w/stairs LTG Duration 8 Assessment Summary Assessment Pt reported intolerable R knee pain during trial recumbent bike rocking fwd/bwd and wasn' t paying atttention talking and went backward quickly causing pain, therapist supported R leg down on floor, ed breath then flex/ext before standing. Pt reported actually felt like R knee moving better gait over to table. BULLDOZER ENGINEER provided manual to thigh and knee mobility with good feedback response and carryover AAROM over ball. She was able to progressed AAROM R knee 4-105 deg. Added standing ankle and knee mobility into flexion use 2nd stair step, no pain just good AAROM stretch found will help home. Good demonstration good knee alignment and stable control during step up review as HEP. She stated R knee little sore end tx and will use CP home but more movement leaving than when arrived. Physical Therapy Plan Frequency and Duration Frequency of Treatment 2x/Week Duration of treatment (weeks) 12 Plan of Care Start Date 12/02/23 Plan of Care End Date 02/24/24 Therapeutic Interventions Therapeutic Interventions Balance Training,Gait Training ,Home Exercise Program,Joint Mobilizations,Manual Therapy, Neuromuscular Re-education, Patient/Caregiver Education, Self-Care/Home Management,Soft Tissue Mobilization,Taping, Therapeutic Activities, Therapeutic Exercises Modalities Cold Pack/Ice Massage,Electric Stimulation,Hot Packs Next Visit Focus/Plan Next Note Type Treatment Note Next Visit Plan Reschedule 1 of next 2 appts to PT for 5th visit. SL knee flexion w/ball & strap vs on step flexion, step ups fwd/lateral. Assess ROM pre& end tx. Continue manual to improve patella and knee glides and decrease pain. Patellar mobility remains hypomobile.
--- NOTE | 2023-12-29 14:49 | PT.OTN ---
Current Diagnoses Unilateral primary osteoarthritis, right knee (12/29/23) Difficulty in walking, not elsewhere classified (12/29/23) Weakness (12/29/23) Physical Therapy Treatment Note PT-OP-A Visit Information Start: 12/01/23 09:21 Freq: Status: Active Protocol: Document 12/29/23 13:01 AB (Rec: 12/29/23 14:48 AB [id number]) Out-Patient Physical Therapy Visit Information Visit Information Visit Type Treatment Note Visit Note 02/27 Access Code: [email or web address] Visit Start Time 13:04 Visit Stop Time 13:46 Visit Number 8 Number of CAN REPAIRER Visits 4 PT-OP-B Current Condition Start: 12/01/23 09:21 Freq: Status: Active Protocol: Document 12/02/23 14:45 [facility] (Rec: 12/02/23 16:51 [facility] [id number]) Current Condition History of Current Condition Onset Date 11/25 Current Complaints R UKA History of Current Condition Pt had R UKA w/knee block and has started to dec frequency of pain meds. SHe had a lot of pain w/keeping knee bent. Pt has follow up next Tues w/PA and will see the provider at 4 -6 weeks post op. Hx of L UKA about 1 year ago. 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 She has been compliant w/exercises and has done well in her home. She has friends helping her Treatment Goals Patient/Caregiver Goals be able to walk, be able to drive, play tennis , improve balance PT-OP-C Subjective Start: 12/01/23 09:21 Freq: Status: Active Protocol: Document 12/29/23 13:01 AB (Rec: 12/29/23 14:48 AB [id number]) OP-PT Subjective Patient Comments Patient Comments Patient reports she fell getting into the car on left knee this morning twisted it badly. Patient reports she did not go to the MD, comment it hurts badly. Patient encouraged to check in with MD /possibly walk in clinic as exercises would be limited for right LE as some exercises impact both knees. (gestures to lateral left knee) Lacking 7 deg extension to 97 deg flexion AROM right knee start of session. Pt reports hip and thigh were sore post previous session. PT-OP-F Manual Assessment Start: 12/01/23 09:21 Freq: Status: Active Protocol: Document 12/02/23 14:45 [facility] (Rec: 12/02/23 16:51 [facility] [id number]) Manual Assessments Soft Tissue Assessment Soft Tissue Mobility Assessment pt swollen in lower leg and knee but limited bruising in ant knee; some bleeding at inf incision only PT-OP-G Mobility & Gait Start: 12/01/23 09:21 Freq: Status: Active Protocol: Document 12/02/23 14:45 [facility] (Rec: 12/02/23 16:51 [facility] [id number]) OP Gait Assessment Assistive Devices Assistive Device Front Wheeled Walker Gait Deviations General Gait Pattern Antalgic,Decreased Stride Length,Decreased Feet Clearance,Flexed Trunk PT-OP-K Range of Motion Start: 12/01/23 09:21 Freq: Status: Active Protocol: Document 12/02/23 14:45 [facility] (Rec: 12/02/23 16:51 [facility] [id number]) Knee Goniometric Range of Motion Knee Right Flexion Active (degrees) 77 Extension Active (degrees) 15 PT-OP-M Strength Start: 12/01/23 09:21 Freq: Status: Active Protocol: Document 12/02/23 14:45 [facility] (Rec: 12/02/23 16:51 [facility] [id number]) Hip Strength Hip Manual Muscle Testing Right Flexion (L2) 3 Fair Abduction 4- Good- External Rotation 3 Fair Internal Rotation 4- Good- Left Flexion (L2) 4 Good Abduction 5 Normal External Rotation 5 Normal Internal Rotation 5 Normal Knee Strength Knee Manual Muscle Testing Right Flexion (S2) 3+ Fair+ Extension (L3) 3+ Fair+ Left Extension (L3) 5 Normal Ankle/Foot Strength Ankle and Foot Manual Muscle Testing Right Dorsiflexion (L4) 4 Good Plantarflexion (S1) 4 Good Comments PF tested seated B Left Dorsiflexion (L4) 5 Normal Plantarflexion (S1) 5 Normal PT-OP-Q Treatments Start: 12/01/23 09:21 Freq: Status: Active Protocol: Document 12/29/23 13:01 AB (Rec: 12/29/23 14:48 AB [id number]) Therapeutic Exercises Supine Exercises Modified Maxwell stretch Side left Equipment Used edge of mat Reps/Minutes one min X 2 Comments with AROM knee flexion X 10 each rep hip and knee ext with band Supine Exercise Name from hooklying Side left Resistance level 4 blue band Reps/Minutes 15X 2 Comments verbal cues knee flexion with feet on wall Supine Exercise Name on ball post manual therapy Reps/Minutes 2 min Comments VC to fully flex and extend SLR Side right Reps/Minutes X10 quad set Side right Equipment Used towel under ankle Standing Exercises step up Standing Exercise Name fwd, lateral Side right Equipment Used 6 step, rail support Reps/Minutes X15 Comments verbal and visual cues for step up step back Manual Therapy Treatment Soft Tissue Mobilization thigh Body Location R quad, HS, calf, peripatellar Mobilization Type Cross-Friction,Rolling,Other Intensity/Depth Moderate Comments manual Joint Mobilizations Patella [place] Joint R Patella Direction sup, inf, med, lat, CW and CCW Grade IV Body Position Supine Reps/Duration X10 X 3 Manual Techniques PROM Type contract relax for hamstrings, seated knee flexion with overepressure Body Location left knee Body Position Sitting Reps/Duration X2 each one minute holds Comments seated and hooklying PT-OP-R Modalities Start: 12/01/23 09:21 Freq: Status: Active Protocol: Document 12/16/23 14:35 JG (Rec: 12/16/23 17:02 JG [id number]) Hot Pack/Cold Pack Treatment Cold Pack Location right knee Patient Position Hooklying Comments 10 minutes PT-OP-T Assessment and Plan Start: 12/01/23 09:21 Freq: Status: Active Protocol: Document 12/29/23 13:01 AB (Rec: 12/29/23 14:48 AB [id number]) Physical Therapy Assessment Goals stairs Short Term Goal (STG) Pt will be able to recip up stairs w/o rail STG Duration 01/17 Prison Goal (LTG) pt will be able to recip down stairs w/o rail LTG Duration 02/23 activity Short Term Goal (STG) Pt will be able to do 1 mile walks without pain in R knee greater than 3/10 STG Duration 01/17 Chairperson Anesthesiology Goal (LTG) pt will be able to go for 2 mile walks w/o inc pain in knee greater than 1/10 LTG Duration 02/23 balance Prison Goal (LTG) Pt willb e able to stand SLS B 10 sec ea LTG Duration 02/23 strength Short Term Goal (STG) pt will be indep w/HEP STG Duration 01/17 Chairperson Anesthesiology Goal (LTG) pt will score 5/5 B LEs to show improved stability for ability to do stairs. ROM Short Term Goal (STG) Pt will have 5-100 deg ROM to allow improved mobility. STG Duration 01/02 Chairperson Anesthesiology Goal (LTG) Pt will have 0-120 deg ROM of R knee to allow improved mobility and ease w/stairs LTG Duration 8 Assessment Summary Assessment lacking 5 deg to 100 deg AROM left knee post manual therapy, reports having no pain end of session. ROM and strength left knee continues to be limited. Exercises that required bilateral weight bearing or right LE use avoided this session due to patient reporting fall on right knee this morning. Physical Therapy Plan Frequency and Duration Frequency of Treatment 2x/Week Duration of treatment (weeks) 12 Plan of Care Start Date 12/02/23 Plan of Care End Date 02/24/24 Next Visit Focus/Plan Next Note Type Treatment Note Next Visit Plan *Pt into last session with reports of fall onto right knee prior to therapy on that morning. Patient had not yet seen MD. SL knee flexion w/ball & strap vs on step flexion, step ups fwd/lateral. Assess ROM pre& end tx. Continue manual to improve patella and knee glides and decrease pain. Patellar mobility remains hypomobile.
--- NOTE | 2024-01-05 13:50 | PT.OTN ---
Current Diagnoses Unilateral primary osteoarthritis, right knee (01/05/24) Difficulty in walking, not elsewhere classified (01/05/24) Weakness (01/05/24) Physical Therapy Treatment Note PT-OP-A Visit Information Start: 12/01/23 09:21 Freq: Status: Active Protocol: Document 01/05/24 13:01 [facility] (Rec: 01/05/24 13:50 [facility] [id number]) Out-Patient Physical Therapy Visit Information Visit Information Visit Type Progress Note Visit Note 07/30 Access Code: [email or web address] Visit Start Time 13:00 Visit Number 9 Number of VACUUM REPAIRER Visits 0 PT-OP-B Current Condition Start: 12/01/23 09:21 Freq: Status: Active Protocol: Document 12/02/23 14:45 [facility] (Rec: 12/02/23 16:51 [id number] Current Condition History of Current Condition Onset Date 11/25 Current Complaints R UKA History of Current Condition Pt had R UKA w/knee block and has started to dec frequency of pain meds. SHe had a lot of pain w/keeping knee bent. Pt has follow up next Tues w/PA and will see the provider at 4 -6 weeks post op. Hx of L UKA about 1 year ago. 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 She has been compliant w/exercises and has done well in her home. She has friends helping her Treatment Goals Patient/Caregiver Goals be able to walk, be able to drive, play tennis , improve balance PT-OP-C Subjective Start: 12/01/23 09:21 Freq: Status: Active Protocol: Document 01/05/24 13:01 [facility] (Rec: 01/05/24 13:50 [facility] [id number]) OP-PT Subjective Patient Comments Patient Comments Pt reports she sees doctor this week. PT-OP-F Manual Assessment Start: 12/01/23 09:21 Freq: Status: Active Protocol: Document 12/02/23 14:45 [facility] (Rec: 12/02/23 16:51 [facility] [id number]) Manual Assessments Soft Tissue Assessment Soft Tissue Mobility Assessment pt swollen in lower leg and knee but limited bruising in ant knee; some bleeding at inf incision only PT-OP-G Mobility & Gait Start: 12/01/23 09:21 Freq: Status: Active Protocol: Document 12/02/23 14:45 [facility] (Rec: 12/02/23 16:51 [facility] [id number]) OP Gait Assessment Assistive Devices Assistive Device Front Wheeled Walker Gait Deviations General Gait Pattern Antalgic,Decreased Stride Length,Decreased Feet Clearance,Flexed Trunk PT-OP-K Range of Motion Start: 12/01/23 09:21 Freq: Status: Active Protocol: Document 01/05/24 13:01 [facility] (Rec: 01/05/24 13:50 [facility] [id number]) Knee Goniometric Range of Motion Knee Right Flexion Active (degrees) 103 Extension Active (degrees) 9 Comments pain PT-OP-M Strength Start: 12/01/23 09:21 Freq: Status: Active Protocol: Document 01/05/24 13:01 [facility] (Rec: 01/05/24 13:50 [facility] [id number]) Hip Strength Hip Manual Muscle Testing Right Flexion (L2) 4 Good Abduction 4 Good External Rotation 4- Good- Internal Rotation 4 Good Left Flexion (L2) 4+ Good+ Abduction 5 Normal External Rotation 5 Normal Internal Rotation 5 Normal Knee Strength Knee Manual Muscle Testing Right Flexion (S2) 4 Good Extension (L3) 4 Good Left Flexion (S2) 5 Normal Extension (L3) 5 Normal Ankle/Foot Strength Ankle and Foot Manual Muscle Testing Right Dorsiflexion (L4) 5 Normal Plantarflexion (S1) 4 Good Comments 14 heel raises w/dec range for last 6 Left Dorsiflexion (L4) 5 Normal Plantarflexion (S1) 5 Normal Comments 20 heel raises PT-OP-Q Treatments Start: 12/01/23 09:21 Freq: Status: Active Protocol: Document 01/05/24 13:01 [facility] (Rec: 01/05/24 13:50 [facility] [id number]) Cardio Equipment Recumbent Bicycle Duration (Minutes) 6 Resistance 0 Seat Position 5 Other fwd/back around Therapeutic Exercises Supine Exercises heel slides Supine Exercise Name AROM flex and ext Side right quad set Side right Equipment Used manual facilitated Reps/Minutes 5 sec x10 Other Exercises isometrics Other Exercise Name LE MMT Side bilateral Manual Therapy Treatment Soft Tissue Mobilization calf Body Location R Mobilization Type Rolling,Sustained Pressure Intensity/Depth Moderate Body Position Supine Comments w/ext scar mobility Body Location R knee Mobilization Type Instrument Assisted,Rolling, Sustained Pressure Intensity/Depth Superficial Body Position Supine Comments plunger and manual; w/ext/flex thigh Body Location R HS Mobilization Type Rolling Intensity/Depth Moderate Comments w/ext Joint Mobilizations right knee Grade II Comments 1. proximal tibfib -fib distraction & AP FM 2. AP femur FM 3. AP tibia FM Patella [place] Joint R Patella Direction sup, inf, med Grade IV Body Position Supine PT-OP-R Modalities Start: 12/01/23 09:21 Freq: Status: Active Protocol: Document 12/16/23 14:35 JG (Rec: 12/16/23 17:02 JG [id number]) Hot Pack/Cold Pack Treatment Cold Pack Location right knee Patient Position Hooklying Comments 10 minutes PT-OP-T Assessment and Plan Start: 12/01/23 09:21 Freq: Status: Active Protocol: Document 01/05/24 13:01 [facility] (Rec: 01/05/24 13:50 [facility] [id number]) Physical Therapy Assessment Goals stairs Short Term Goal (STG) Pt will be able to recip up stairs w/o rail STG Duration achieved 01/04 Jail Goal (LTG) pt will be able to recip down stairs w/o rail LTG Duration achieved 01/04 activity Short Term Goal (STG) Pt will be able to do 1 mile walks without pain in R knee greater than 3/10 01/04-has not tried walks STG Duration 01/17 Boat Operator Goal (LTG) pt will be able to go for 2 mile walks w/o inc pain in knee greater than 1/10 LTG Duration 02/23 balance Boat Operator Goal (LTG) Pt willb e able to stand SLS B 10 sec ea 01/04-7 sec L; 9 sec R LTG Duration 02/23 strength Short Term Goal (STG) pt will be indep w/HEP 01/04-compliant w/some exercises STG Duration 01/17 Boat Operator Goal (LTG) pt will score 5/5 B LEs to show improved stability for ability to do stairs. 01/04-improved LTG Duration 12 weeks ROM Short Term Goal (STG) Pt will have 5-100 deg ROM to allow improved mobility. 01/04-9-103 STG Duration 01/02 Jail Goal (LTG) Pt will have 0-120 deg ROM of R knee to allow improved mobility and ease w/stairs LTG Duration 8 Assessment Summary Assessment Improved ext to lacking 4 deg only afte manual treatment. She is still limited w/herROM but is improving and showing much progress w/functional mobility w/ability to drive and reciprocate up/down stairs . cont PT to improve ROM, strength and functional mobility. Physical Therapy Plan Frequency and Duration Frequency of Treatment 2x/Week Duration of treatment (weeks) 12 Plan of Care Start Date 12/02/23 Plan of Care End Date 02/24/24 Therapeutic Interventions Therapeutic Interventions Balance Training,Gait Training ,Home Exercise Program,Joint Mobilizations,Manual Therapy, Neuromuscular Re-education, Patient/Caregiver Education, Self-Care/Home Management,Soft Tissue Mobilization,Taping, Therapeutic Activities, Therapeutic Exercises Modalities Cold Pack/Ice Massage,Electric Stimulation,Hot Packs Next Visit Focus/Plan Next Note Type Treatment Note Next Visit Plan manual to work on ext and flex mobility; exercises to focus on ROM; step for control exercises
--- NOTE | 2024-01-07 14:01 | PT.OTN ---
Current Diagnoses Unilateral primary osteoarthritis, right knee (01/07/24) Difficulty in walking, not elsewhere classified (01/07/24) Weakness (01/07/24) Physical Therapy Treatment Note PT-OP-A Visit Information Start: 12/01/23 09:21 Freq: Status: Active Protocol: Document 01/07/24 12:52 AB (Rec: 01/07/24 14:01 AB [id number]) Out-Patient Physical Therapy Visit Information Visit Information Visit Type Treatment Note Visit Note 08/30 Access Code: [email or web address] Visit Start Time 13:05 Visit Stop Time 13:49 Visit Number 10 Number of FILLING TECHNICIAN Visits 1 PT-OP-B Current Condition Start: 12/01/23 09:21 Freq: Status: Active Protocol: Document 12/02/23 14:45 [facility] (Rec: 12/02/23 16:51 [facility] [id number]) Current Condition History of Current Condition Onset Date 11/25 Current Complaints R UKA History of Current Condition Pt had R UKA w/knee block and has started to dec frequency of pain meds. SHe had a lot of pain w/keeping knee bent. Pt has follow up next Tues w/PA and will see the provider at 4 -6 weeks post op. Hx of L UKA about 1 year ago. 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 She has been compliant w/exercises and has done well in her home. She has friends helping her Treatment Goals Patient/Caregiver Goals be able to walk, be able to drive, play tennis , improve balance PT-OP-C Subjective Start: 12/01/23 09:21 Freq: Status: Active Protocol: Document 01/07/24 12:52 AB (Rec: 01/07/24 14:01 AB [id number]) OP-PT Subjective Patient Comments Patient Comments Patient reports she is happy do be able to do the bike has been doing it at home, has been doing purposeful walks at home. Lacking 6 deg extension to 110 deg flexion ( post bike ) AROM right knee PT-OP-F Manual Assessment Start: 12/01/23 09:21 Freq: Status: Active Protocol: Document 12/02/23 14:45 [facility] (Rec: 12/02/23 16:51 [facility] [id number]) Manual Assessments Soft Tissue Assessment Soft Tissue Mobility Assessment pt swollen in lower leg and knee but limited bruising in ant knee; some bleeding at inf incision only PT-OP-G Mobility & Gait Start: 12/01/23 09:21 Freq: Status: Active Protocol: Document 12/02/23 14:45 [facility] (Rec: 12/02/23 16:51 [facility] [id number]) OP Gait Assessment Assistive Devices Assistive Device Front Wheeled Walker Gait Deviations General Gait Pattern Antalgic,Decreased Stride Length,Decreased Feet Clearance,Flexed Trunk PT-OP-K Range of Motion Start: 12/01/23 09:21 Freq: Status: Active Protocol: Document 01/05/24 13:01 [facility] (Rec: 01/05/24 13:50 [facility] [id number]) Knee Goniometric Range of Motion Knee Right Flexion Active (degrees) 103 Extension Active (degrees) 9 Comments pain PT-OP-M Strength Start: 12/01/23 09:21 Freq: Status: Active Protocol: Document 01/05/24 13:01 [facility] (Rec: 01/05/24 13:50 [facility] [id number]) Hip Strength Hip Manual Muscle Testing Right Flexion (L2) 4 Good Abduction 4 Good External Rotation 4- Good- Internal Rotation 4 Good Left Flexion (L2) 4+ Good+ Abduction 5 Normal External Rotation 5 Normal Internal Rotation 5 Normal Knee Strength Knee Manual Muscle Testing Right Flexion (S2) 4 Good Extension (L3) 4 Good Left Flexion (S2) 5 Normal Extension (L3) 5 Normal Ankle/Foot Strength Ankle and Foot Manual Muscle Testing Right Dorsiflexion (L4) 5 Normal Plantarflexion (S1) 4 Good Comments 14 heel raises w/dec range for last 6 Left Dorsiflexion (L4) 5 Normal Plantarflexion (S1) 5 Normal Comments 20 heel raises PT-OP-Q Treatments Start: 12/01/23 09:21 Freq: Status: Active Protocol: Document 01/07/24 12:52 AB (Rec: 01/07/24 14:01 AB [id number]) Cardio Equipment Recumbent Bicycle Duration (Minutes) 6 Resistance 0 Seat Position 5 Other fwd/back around Therapeutic Exercises Supine Exercises hip and knee ext with band Supine Exercise Name from hooklying Side right Resistance level 4 blue band Reps/Minutes 2X10 Comments Verbal cues hamstring stretch Side right Reps/Minutes 60 sec X 3 heel slides Supine Exercise Name AROM flex and ext Side right Reps/Minutes X10 Standing Exercises step up Standing Exercise Name step up fwd and back Side right Equipment Used 6 step, rail support Reps/Minutes X10 Comments verbal and visual cues for step up step back Manual Therapy Treatment Soft Tissue Mobilization calf Body Location R Mobilization Type Cross-Friction,Rolling Intensity/Depth Moderate Body Position Hooklying Comments knee off bolster scar mobility Body Location R knee Mobilization Type Cross-Friction Intensity/Depth Moderate Body Position Hooklying Comments superficial and moderate thigh Body Location R HS Mobilization Type Cross-Friction,Rolling Intensity/Depth Moderate Body Position Hooklying calf on bolster Comments positioned in stretch Joint Mobilizations right knee Grade IV Comments PA tib on femur Patella [place] Joint R Patella Direction sup, inf, med, CW and CCW Grade IV Body Position Supine Manual Techniques PROM Type for quad contract relax, over pressure for hamstring Body Location right knee Body Position Sitting Reps/Duration X2 quad one minute holds, 15 seconds X 4 for HS Comments seated and hooklying PT-OP-R Modalities Start: 12/01/23 09:21 Freq: Status: Active Protocol: Document 12/16/23 14:35 JG (Rec: 12/16/23 17:02 JG [id number]) Hot Pack/Cold Pack Treatment Cold Pack Location right knee Patient Position Hooklying Comments 10 minutes PT-OP-T Assessment and Plan Start: 12/01/23 09:21 Freq: Status: Active Protocol: Document 01/07/24 12:52 AB (Rec: 01/07/24 14:01 AB [id number]) Physical Therapy Assessment Goals stairs Short Term Goal (STG) Pt will be able to recip up stairs w/o rail STG Duration achieved 01/04 Correction Goal (LTG) pt will be able to recip down stairs w/o rail LTG Duration achieved 01/04 activity Short Term Goal (STG) Pt will be able to do 1 mile walks without pain in R knee greater than 3/10 01/04-has not tried walks STG Duration 01/17 Fresh Foods Technician Goal (LTG) pt will be able to go for 2 mile walks w/o inc pain in knee greater than 1/10 LTG Duration 8/ balance Fresh Foods Technician Goal (LTG) Pt willb e able to stand SLS B 10 sec ea 01/04-7 sec L; 9 sec R LTG Duration 8 strength Short Term Goal (STG) pt will be indep w/HEP 01/04-compliant w/some exercises STG Duration 01/17 Fresh Foods Technician Goal (LTG) pt will score 5/5 B LEs to show improved stability for ability to do stairs. 01/04-improved LTG Duration 12 weeks ROM Short Term Goal (STG) Pt will have 5-100 deg ROM to allow improved mobility. 01/04-9-103 STG Duration 01/02 Fresh Foods Technician Goal (LTG) Pt will have 0-120 deg ROM of R knee to allow improved mobility and ease w/stairs LTG Duration 8 Assessment Summary Assessment lacking 5 deg extension to 106 deg flexion post manual therapy and exercise possibly due to increase effort on knee extension this session. Physical Therapy Plan Frequency and Duration Frequency of Treatment 2x/Week Duration of treatment (weeks) 12 Plan of Care Start Date 12/02/23 Plan of Care End Date 02/24/24 Next Visit Focus/Plan Next Note Type Treatment Note Next Visit Plan manual to work on ext and flex mobility; exercises to focus on ROM; step for control exercises
--- NOTE | 2024-01-12 13:46 | PT.OTN ---
Current Diagnoses Unilateral primary osteoarthritis, right knee (01/12/24) Difficulty in walking, not elsewhere classified (01/12/24) Weakness (01/12/24) Physical Therapy Treatment Note PT-OP-A Visit Information Start: 12/01/23 09:21 Freq: Status: Active Protocol: Document 01/12/24 12:55 AB (Rec: 01/12/24 13:46 AB [id number]) Out-Patient Physical Therapy Visit Information Visit Information Visit Type Treatment Note Visit Note 09/27 Access Code: [email or web address] Visit Start Time 13:02 Visit Stop Time 13:42 Visit Number 11 Number of SOAKER SODA WORKER Visits 2 PT-OP-B Current Condition Start: 12/01/23 09:21 Freq: Status: Active Protocol: Document 12/02/23 14:45 [facility] (Rec: 12/02/23 16:51 [facility] [id number]) Current Condition History of Current Condition Onset Date 11/25 Current Complaints R UKA History of Current Condition Pt had R UKA w/knee block and has started to dec frequency of pain meds. SHe had a lot of pain w/keeping knee bent. Pt has follow up next Tues w/PA and will see the provider at 4 -6 weeks post op. Hx of L UKA about 1 year ago. 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 She has been compliant w/exercises and has done well in her home. She has friends helping her Treatment Goals Patient/Caregiver Goals be able to walk, be able to drive, play tennis , improve balance PT-OP-C Subjective Start: 12/01/23 09:21 Freq: Status: Active Protocol: Document 01/12/24 12:55 AB (Rec: 01/12/24 13:46 AB [id number]) OP-PT Subjective Patient Comments Patient Comments Patient rates the right knee ache at 1-2/ start of session. Patient reports gardening this weekend. lacking 10 deg extension to 97 deg flexion AROM right knee start of session PT-OP-F Manual Assessment Start: 12/01/23 09:21 Freq: Status: Active Protocol: Document 12/02/23 14:45 [facility] (Rec: 12/02/23 16:51 [facility] [id number]) Manual Assessments Soft Tissue Assessment Soft Tissue Mobility Assessment pt swollen in lower leg and knee but limited bruising in ant knee; some bleeding at inf incision only PT-OP-G Mobility & Gait Start: 12/01/23 09:21 Freq: Status: Active Protocol: Document 12/02/23 14:45 [facility] (Rec: 12/02/23 16:51 [facility] [id number]) OP Gait Assessment Assistive Devices Assistive Device Front Wheeled Walker Gait Deviations General Gait Pattern Antalgic,Decreased Stride Length,Decreased Feet Clearance,Flexed Trunk PT-OP-K Range of Motion Start: 12/01/23 09:21 Freq: Status: Active Protocol: Document 01/05/24 13:01 [facility] (Rec: 01/05/24 13:50 [facility] [id number]) Knee Goniometric Range of Motion Knee Right Flexion Active (degrees) 103 Extension Active (degrees) 9 Comments pain PT-OP-M Strength Start: 12/01/23 09:21 Freq: Status: Active Protocol: Document 01/05/24 13:01 [facility] (Rec: 01/05/24 13:50 [facility] [id number]) Hip Strength Hip Manual Muscle Testing Right Flexion (L2) 4 Good Abduction 4 Good External Rotation 4- Good- Internal Rotation 4 Good Left Flexion (L2) 4+ Good+ Abduction 5 Normal External Rotation 5 Normal Internal Rotation 5 Normal Knee Strength Knee Manual Muscle Testing Right Flexion (S2) 4 Good Extension (L3) 4 Good Left Flexion (S2) 5 Normal Extension (L3) 5 Normal Ankle/Foot Strength Ankle and Foot Manual Muscle Testing Right Dorsiflexion (L4) 5 Normal Plantarflexion (S1) 4 Good Comments 14 heel raises w/dec range for last 6 Left Dorsiflexion (L4) 5 Normal Plantarflexion (S1) 5 Normal Comments 20 heel raises PT-OP-Q Treatments Start: 12/01/23 09:21 Freq: Status: Active Protocol: Document 01/12/24 12:55 AB (Rec: 01/12/24 13:46 AB [id number]) Cardio Equipment Recumbent Elliptical (Biodex) Duration (Minutes) 6 Resistance 1-3 Seat Position 8 Therapeutic Exercises Supine Exercises hip and knee ext with band Supine Exercise Name from hooklying Side right Resistance level 4 blue band Reps/Minutes 2X10 Comments Verbal cues hamstring stretch Side right Reps/Minutes 60 sec X 3 heel slides Supine Exercise Name AROM flex and ext Side right Reps/Minutes X10 SLR Side right Reps/Minutes X10 Standing Exercises terminal knee extension Side right Resistance level 4 blue band Reps/Minutes 2X10 Manual Therapy Treatment Soft Tissue Mobilization scar mobility Body Location R knee Mobilization Type Cross-Friction Intensity/Depth Moderate Body Position Hooklying Comments superficial and moderate thigh Body Location R HS and quad Mobilization Type Cross-Friction,Rolling Intensity/Depth Moderate Body Position Hooklying calf on bolster Comments positioned in stretch Joint Mobilizations right knee Grade IV Comments PA and AP tib on femur Patella [place] Joint R Patella Direction sup, inf, med, CW and CCW Grade IV Body Position Supine Manual Techniques PROM Body Location right knee Body Position Sitting Reps/Duration quad X2 HS X 3 one min each Comments seated and hooklying PT-OP-R Modalities Start: 12/01/23 09:21 Freq: Status: Active Protocol: Document 12/16/23 14:35 JG (Rec: 12/16/23 17:02 JG [id number]) Hot Pack/Cold Pack Treatment Cold Pack Location right knee Patient Position Hooklying Comments 10 minutes PT-OP-T Assessment and Plan Start: 12/01/23 09:21 Freq: Status: Active Protocol: Document 01/12/24 12:55 AB (Rec: 01/12/24 13:46 AB [id number]) Physical Therapy Assessment Goals stairs Short Term Goal (STG) Pt will be able to recip up stairs w/o rail STG Duration achieved 01/04 Biology Adjunct Instructor Goal (LTG) pt will be able to recip down stairs w/o rail LTG Duration achieved 01/04 activity Short Term Goal (STG) Pt will be able to do 1 mile walks without pain in R knee greater than 3/10 01/04-has not tried walks STG Duration 01/17 Biology Adjunct Instructor Goal (LTG) pt will be able to go for 2 mile walks w/o inc pain in knee greater than 1/10 LTG Duration 02/23 balance Residential Goal (LTG) Pt willb e able to stand SLS B 10 sec ea 01/04-7 sec L; 9 sec R LTG Duration 8 strength Short Term Goal (STG) pt will be indep w/HEP 01/04-compliant w/some exercises STG Duration 01/17 Residential Goal (LTG) pt will score 5/5 B LEs to show improved stability for ability to do stairs. 01/04-improved LTG Duration 12 weeks ROM Short Term Goal (STG) Pt will have 5-100 deg ROM to allow improved mobility. 01/04-9-103 STG Duration 01/02 Biology Adjunct Instructor Goal (LTG) Pt will have 0-120 deg ROM of R knee to allow improved mobility and ease w/stairs LTG Duration 02/22 Assessment Summary Assessment Right knee lacking 6 to 101 deg end of session, reporting having no pain right knee end of session. Physical Therapy Plan Frequency and Duration Frequency of Treatment 2x/Week Duration of treatment (weeks) 12 Plan of Care Start Date 12/02/23 Plan of Care End Date 02/24/24 Next Visit Focus/Plan Next Note Type Treatment Note Next Visit Plan manual to work on ext and flex mobility; exercises to focus on ROM; step for control exercises
--- NOTE | 2024-01-14 17:03 | PT.OTN ---
Addendum entered and electronically signed by Fernanda Novak PT 01/14/24 17:42: PT direct supervision and direction to student PT Bryce Grant throughout session Original Note: Current Diagnoses Unilateral primary osteoarthritis, right knee (01/14/24) Difficulty in walking, not elsewhere classified (01/14/24) Weakness (01/14/24) Physical Therapy Treatment Note PT-OP-A Visit Information Start: 12/01/23 09:21 Freq: Status: Active Protocol: Document 01/14/24 13:05 JG (Rec: 01/14/24 14:24 [id number]) Out-Patient Physical Therapy Visit Information Visit Information Visit Type Treatment Note Visit Start Time 13:05 Visit Stop Time 13:56 Visit Number 12 Number of AUTOMOBILE SALES CONSULTANT Visits 0 PT-OP-B Current Condition Start: 12/01/23 09:21 Freq: Status: Active Protocol: Document 12/02/23 14:45 [facility] (Rec: 12/02/23 16:51 [facility] [id number]) Current Condition History of Current Condition Onset Date 11/25 Current Complaints R UKA History of Current Condition Pt had R UKA w/knee block and has started to dec frequency of pain meds. SHe had a lot of pain w/keeping knee bent. Pt has follow up next Tues w/PA and will see the provider at 4 -6 weeks post op. Hx of L UKA about 1 year ago. 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 She has been compliant w/exercises and has done well in her home. She has friends helping her Treatment Goals Patient/Caregiver Goals be able to walk, be able to drive, play tennis , improve balance PT-OP-C Subjective Start: 12/01/23 09:21 Freq: Status: Active Protocol: Document 01/14/24 13:05 JG (Rec: 01/14/24 14:24 [id number]) OP-PT Subjective Patient Comments Patient Comments Pt states that she is not feeling good and her knee is hurting. She says that after a few minutes on the recumbent bike she started to feel better. She has been doing better with walking and gardening. Patient Reported Progress Same PT-OP-F Manual Assessment Start: 12/01/23 09:21 Freq: Status: Active Protocol: Document 12/02/23 14:45 [facility] (Rec: 12/02/23 16:51 [facility] [id number]) Manual Assessments Soft Tissue Assessment Soft Tissue Mobility Assessment pt swollen in lower leg and knee but limited bruising in ant knee; some bleeding at inf incision only PT-OP-G Mobility & Gait Start: 12/01/23 09:21 Freq: Status: Active Protocol: Document 12/02/23 14:45 [facility] (Rec: 12/02/23 16:51 [facility] [id number]) OP Gait Assessment Assistive Devices Assistive Device Front Wheeled Walker Gait Deviations General Gait Pattern Antalgic,Decreased Stride Length,Decreased Feet Clearance,Flexed Trunk PT-OP-K Range of Motion Start: 12/01/23 09:21 Freq: Status: Active Protocol: Document 01/14/24 13:05 JG (Rec: 01/14/24 14:25 JG [id number]) Knee Goniometric Range of Motion Knee Right Flexion Active (degrees) 110 Extension Active (degrees) 6 Comments some pain reported. ROM taken post manual; prior to manual, 9 to 101 PT-OP-M Strength Start: 12/01/23 09:21 Freq: Status: Active Protocol: Document 01/05/24 13:01 [facility] (Rec: 01/05/24 13:50 [facility] [id number]) Hip Strength Hip Manual Muscle Testing Right Flexion (L2) 4 Good Abduction 4 Good External Rotation 4- Good- Internal Rotation 4 Good Left Flexion (L2) 4+ Good+ Abduction 5 Normal External Rotation 5 Normal Internal Rotation 5 Normal Knee Strength Knee Manual Muscle Testing Right Flexion (S2) 4 Good Extension (L3) 4 Good Left Flexion (S2) 5 Normal Extension (L3) 5 Normal Ankle/Foot Strength Ankle and Foot Manual Muscle Testing Right Dorsiflexion (L4) 5 Normal Plantarflexion (S1) 4 Good Comments 14 heel raises w/dec range for last 6 Left Dorsiflexion (L4) 5 Normal Plantarflexion (S1) 5 Normal Comments 20 heel raises PT-OP-Q Treatments Start: 12/01/23 09:21 Freq: Status: Active Protocol: Document 01/14/24 13:05 JG (Rec: 01/14/24 14:24 JG [id number]) Cardio Equipment Recumbent Bicycle Duration (Minutes) 8 Resistance 0 Seat Position 5 Other fwd/back around Therapeutic Exercises Supine Exercises heel slides Supine Exercise Name AROM flex and ext Side right Reps/Minutes X10 Other Exercises LAQ Side right Resistance 1lb ankle weight Reps/Minutes 20 Comments Pt needed cueing to slow down eccentric movement Manual Therapy Treatment Consent Patient gave verbal consent for manual Yes treatment Soft Tissue Mobilization scar mobility Body Location R knee Mobilization Type Cross-Friction,Rolling, Sustained Pressure Intensity/Depth Moderate Body Position Hooklying Comments Pt complained of pain in R medial knee when extending knee after being flexed thigh Body Location R HS and quad Mobilization Type Cross-Friction,Rolling Intensity/Depth Moderate Joint Mobilizations Patella [place] Joint R Patella Direction sup, inf, med, CW and CCW Grade IV Body Position Supine Comments med>Sup/inf/lat PT-OP-R Modalities Start: 12/01/23 09:21 Freq: Status: Active Protocol: Document 12/16/23 14:35 JG (Rec: 12/16/23 17:02 J [id number]) Hot Pack/Cold Pack Treatment Cold Pack Location right knee Patient Position Hooklying Comments 10 minutes PT-OP-T Assessment and Plan Start: 12/01/23 09:21 Freq: Status: Active Protocol: Document 01/14/24 13:05 JG (Rec: 01/14/24 14:24 J [id number]) Physical Therapy Assessment Goals stairs Short Term Goal (STG) Pt will be able to recip up stairs w/o rail STG Duration achieved 01/04 Hardware Installation Coordinator Goal (LTG) pt will be able to recip down stairs w/o rail LTG Duration achieved 01/04 activity Short Term Goal (STG) Pt will be able to do 1 mile walks without pain in R knee greater than 3/10 01/04-has not tried walks STG Duration 01/17 Hardware Installation Coordinator Goal (LTG) pt will be able to go for 2 mile walks w/o inc pain in knee greater than 1/10 LTG Duration 02/23 balance Hardware Installation Coordinator Goal (LTG) Pt willb e able to stand SLS B 10 sec ea 01/04-7 sec L; 9 sec R LTG Duration 02/23 strength Short Term Goal (STG) pt will be indep w/HEP 01/04-compliant w/some exercises STG Duration 01/17 Retirement Goal (LTG) pt will score 5/5 B LEs to show improved stability for ability to do stairs. 01/04-improved LTG Duration 12 weeks ROM Short Term Goal (STG) Pt will have 5-100 deg ROM to allow improved mobility. 01/04-9-103 STG Duration 01/02 Hardware Installation Coordinator Goal (LTG) Pt will have 0-120 deg ROM of R knee to allow improved mobility and ease w/stairs LTG Duration 02/22 Assessment Summary Assessment Pt was in pain upone arrival. Pt felt better after completing time on recumbent bike. Pt had improved ROM with knee flexion and ext. Pt has R medial knee pain when extending knee immediatly after knee flexion. Pt was given ice at the end of session and reported dec overall knee pain Physical Therapy Plan Frequency and Duration Frequency of Treatment 2x/Week Duration of treatment (weeks) 12 Plan of Care Start Date 12/02/23 Plan of Care End Date 02/24/24 Next Visit Focus/Plan Next Note Type Treatment Note Next Visit Plan Focus on manual treatment consisting of scar and patella mobs exercises to increase ROM, exercise tolerance, HEP recall
--- NOTE | 2024-01-28 11:37 | PT.OTN ---
Current Diagnoses Unilateral primary osteoarthritis, right knee (01/28/24) Difficulty in walking, not elsewhere classified (01/28/24) Weakness (01/28/24) Physical Therapy Treatment Note PT-OP-A Visit Information Start: 12/01/23 09:21 Freq: Status: Active Protocol: Document 01/28/24 10:33 SP (Rec: 01/28/24 11:37 SP [id number]) Out-Patient Physical Therapy Visit Information Visit Information Visit Type Treatment Note Visit Start Time 10:33 Visit Stop Time 11:16 Visit Number 13 Number of HEALTHCARE ADMINISTRATOR Visits 1 PT-OP-B Current Condition Start: 12/01/23 09:21 Freq: Status: Active Protocol: Document 12/02/23 14:45 [facility] (Rec: 12/02/23 16:51 [facility] [id number]) Current Condition History of Current Condition Onset Date 11/25 Current Complaints R UKA History of Current Condition Pt had R UKA w/knee block and has started to dec frequency of pain meds. SHe had a lot of pain w/keeping knee bent. Pt has follow up next w/PA and will see the provider at 4 -6 weeks post op. Hx of L UKA about 1 year ago. 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 She has been compliant w/exercises and has done well in her home. She has friends helping her Treatment Goals Patient/Caregiver Goals be able to walk, be able to drive, play tennis , improve balance PT-OP-C Subjective Start: 12/01/23 09:21 Freq: Status: Active Protocol: Document 01/28/24 10:33 SP (Rec: 01/28/24 11:37 SP [id number]) OP-PT Subjective Patient Comments Patient Comments Pt reports hasn't been able to do her exercises much, caregiving with mom, family in town trying to do some selfcare. Walking dog 1 block/ back pnfree, asked try 1 mile before next tx, she reports at times R knee feels like wants give way and still having medial R knee pain and locking on her from flex>ext like in PT. Patient Reported Progress Worse PT-OP-F Manual Assessment Start: 12/01/23 09:21 Freq: Status: Active Protocol: Document 12/02/23 14:45 [facility] (Rec: 12/02/23 16:51 [facility] [id number]) Manual Assessments Soft Tissue Assessment Soft Tissue Mobility Assessment pt swollen in lower leg and knee but limited bruising in ant knee; some bleeding at inf incision only PT-OP-G Mobility & Gait Start: 12/01/23 09:21 Freq: Status: Active Protocol: Document 12/02/23 14:45 [facility] (Rec: 12/02/23 16:51 [facility] [id number]) OP Gait Assessment Assistive Devices Assistive Device Front Wheeled Walker Gait Deviations General Gait Pattern Antalgic,Decreased Stride Length,Decreased Feet Clearance,Flexed Trunk PT-OP-K Range of Motion Start: 12/01/23 09:21 Freq: Status: Active Protocol: Document 01/28/24 10:33 SP (Rec: 01/28/24 11:37 SP [id number]) Knee Goniometric Range of Motion Knee Right Knee ROM WFL No Patient Position Supine Flexion Active (degrees) 112 Extension Active (degrees) 6 Comments some pain reported. ROM taken post manual 9-112deg; prior to manual, 6-108deg PT-OP-M Strength Start: 12/01/23 09:21 Freq: Status: Active Protocol: Document 01/05/24 13:01 [facility] (Rec: 01/05/24 13:50 [facility] [id number]) Hip Strength Hip Manual Muscle Testing Right Flexion (L2) 4 Good Abduction 4 Good External Rotation 4- Good- Internal Rotation 4 Good Left Flexion (L2) 4+ Good+ Abduction 5 Normal External Rotation 5 Normal Internal Rotation 5 Normal Knee Strength Knee Manual Muscle Testing Right Flexion (S2) 4 Good Extension (L3) 4 Good Left Flexion (S2) 5 Normal Extension (L3) 5 Normal Ankle/Foot Strength Ankle and Foot Manual Muscle Testing Right Dorsiflexion (L4) 5 Normal Plantarflexion (S1) 4 Good Comments 14 heel raises w/dec range for last 6 Left Dorsiflexion (L4) 5 Normal Plantarflexion (S1) 5 Normal Comments 20 heel raises PT-OP-Q Treatments Start: 12/01/23 09:21 Freq: Status: Active Protocol: Document 01/28/24 10:33 SP (Rec: 01/28/24 11:37 SP [id number]) Cardio Equipment Recumbent Bicycle Duration (Minutes) 6 Resistance 4 Seat Position see 5 Other fwd full revoluntions Gym Equipment Therapeutic Ball seated Exercise Details seated on plinth- 01/28/24 Ball Size/Color 65 cm R foot on Body Position seated Reps/Duration 5 reps Comments AAROM R knee flexion- initial 2 reps felt good into flex then 3-5 reps Medial knee caught/locked causing needed to stop Therapeutic Exercises Prone Exercises R knee flexion Equipment Used use strap, folded towel under thigh above knee Reps/Minutes 3 reps 20 SH Comments reports good quad stretch, ed not push into pain Sitting Exercises knee extension Sitting Exercise Name reviewed for HEP :LAQ Side right Resistance TB #1 light blue around ankles /under L foot Reps/Minutes x10 reps 1 sec pause Comments reports no pain with resistance- this feels good knee flex Sitting Exercise Name added to HEP Side right Resistance AROM> TB #1light blue Equipment Used mesh chair Reps/Minutes x10 reps Comments reports no pain Standing Exercises ankle/knee mobility Standing Exercise Name R knee flexion- reviewed for assist ROM home Side right Resistance AAROM Equipment Used on 2nd step, rail support Reps/Minutes 10 reps, 2 SH Comments good reports good feel stretch Other Exercises self STMs Other Exercise Name rolling pin: quad, HS, calf, ITB Comments manual supine and ed self use seated Manual Therapy Treatment Soft Tissue Mobilization scar mobility Body Location R knee Mobilization Type Cross-Friction,Myofascial Release Intensity/Depth Moderate Body Position Hooklying Comments STMs. Pt complained of pain in R medial knee when extending knee after being flexed. thigh Body Location R HS and quad Mobilization Type Cross-Friction,Rolling Intensity/Depth Moderate Comments manual and use rolling pin, ed self application- good response Joint Mobilizations right knee Grade III Comments PA femur on tib long axis AP tib on femur hooklying Inferior glide into flexion tib on femur prone Patella [place] Joint R Patella Direction sup, inf, med, CW and CCW Grade IV Body Position Supine Comments med>Sup/inf/lat Neuro Re-Education Treatment Balance Activities SLS Details assessing progression goal Comments facing rail best- L 8 sec, R 9 sec Cued elongated /c TA and rhomboid fac stability. PT-OP-R Modalities Start: 12/01/23 09:21 Freq: Status: Active Protocol: Document 12/16/23 14:35 Jai (Rec: 12/16/23 17:02 Jai [id number]) Hot Pack/Cold Pack Treatment Cold Pack Location right knee Patient Position Hooklying Comments 10 minutes PT-OP-T Assessment and Plan Start: 12/01/23 09:21 Freq: Status: Active Protocol: Document 01/28/24 10:33 SP (Rec: 01/28/24 11:37 SP [id number]) Physical Therapy Assessment Goals stairs Short Term Goal (STG) Pt will be able to recip up stairs w/o rail STG Duration achieved 01/04 Environmental Analyst Goal (LTG) pt will be able to recip down stairs w/o rail LTG Duration achieved 01/04 activity Short Term Goal (STG) Pt will be able to do 1 mile walks without pain in R knee greater than 301/04-has not tried walks 01/28/24: walking dog 1/2 mile and no pain but not enough time go further. Will put watch that counts step for mileage too. STG Duration 01/17 progressing 01/28/24 Correction Goal (LTG) pt will be able to go for 2 mile walks w/o inc pain in knee greater than 07/30 LTG Duration 02/23 balance Environmental Analyst Goal (LTG) Pt willb e able to stand SLS B 10 sec ea 01/04-7 sec L; 9 sec R 01/28/24: facing rail best-L 8 sec, R 9 sec LTG Duration 02/23 small progress 01/28/24 strength Short Term Goal (STG) pt will be indep w/HEP 01/04-compliant w/some exercises 01/28/24: added resisted R knee flexion & ext TB #1, reviewed knee mobility on step, prone R knee flexion with strap, use rolling pin quad/ITB/HS/calf (declined HOs). STG Duration 01/17 prgressing 01/28/24 Correction Goal (LTG) pt will score 5/5 B LEs to show improved stability for ability to do stairs. 01/04-improved LTG Duration 12 weeks ROM Short Term Goal (STG) Pt will have 5-100 deg ROM to allow improved mobility. 01/04-9-103 01/28/24: some pain reported. ROM taken post manual 9-112deg ; prior to manual, 6-108deg STG Duration 01/02 progressing 01/28/24 Environmental Analyst Goal (LTG) Pt will have 0-120 deg ROM of R knee to allow improved mobility and ease w/stairs LTG Duration 02/22 Assessment Summary Assessment Pt reported pain arrival, improved less tightness post manual. Good response to AAROM /stretching /c strap assist and rolling pin use, declined HOs (see goal). Pt responded well to resisted LAQ and HS curl no knee pain so will continue home. Slow progression R knee ROM 6- 112deg post manual. Physical Therapy Plan Frequency and Duration Frequency of Treatment 2x/Week Duration of treatment (weeks) 12 Plan of Care Start Date 12/02/23 Plan of Care End Date 02/24/24 Therapeutic Interventions Therapeutic Interventions Balance Training,Gait Training ,Home Exercise Program,Joint Mobilizations,Manual Therapy, Neuromuscular Re-education, Patient/Caregiver Education, Self-Care/Home Management,Soft Tissue Mobilization,Taping, Therapeutic Activities, Therapeutic Exercises Modalities Cold Pack/Ice Massage,Electric Stimulation,Hot Packs Next Visit Focus/Plan Next Note Type Treatment Note Next Visit Plan make more appts. Recheck resisted R knee flex and ext, standing knee flexion stairs. Trial squats, step ups retro/lateral, leg press next tx. POC: Focus on manual treatment consisting of scar and patella mobs exercises to increase ROM, exercise tolerance, HEP recall
--- NOTE | 2024-02-17 13:48 | PT.OTN ---
Current Diagnoses Unilateral primary osteoarthritis, right knee (02/17/24) Difficulty in walking, not elsewhere classified (02/17/24) Weakness (02/17/24) Physical Therapy Treatment Note PT-OP-A Visit Information Start: 12/01/23 09:21 Freq: Status: Active Protocol: Document 02/17/24 13:08 [facility] (Rec: 02/17/24 13:48 [facility] [id number]) Out-Patient Physical Therapy Visit Information Visit Information Visit Type Progress Note Visit Note 07/30 Visit Start Time 13:04 Visit Stop Time 13:44 Visit Number 14 Number of BUSINESS UNIT MANAGER Visits 0 PT-OP-B Current Condition Start: 12/01/23 09:21 Freq: Status: Active Protocol: Document 12/02/23 14:45 [facility] (Rec: 12/02/23 [id number] Current Condition History of Current Condition Onset Date 11/25 Current Complaints R UKA History of Current Condition Pt had R UKA w/knee block and has started to dec frequency of pain meds. SHe had a lot of pain w/keeping knee bent. Pt has follow up next Tues w/PA and will see the provider at 4 -6 weeks post op. Hx of L UKA about 1 year ago. 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 She has been compliant w/exercises and has done well in her home. She has friends helping her Treatment Goals Patient/Caregiver Goals be able to walk, be able to drive, play tennis , improve balance PT-OP-C Subjective Start: 12/01/23 09:21 Freq: Status: Active Protocol: Document 02/17/24 13:08 [facility] (Rec: 02/17/24 13:48 [facility] [id number]) OP-PT Subjective Patient Comments Patient Comments pt reports she has been walking and has less pain Lss exercise compliance PT-OP-F Manual Assessment Start: 12/01/23 09:21 Freq: Status: Active Protocol: Document 12/02/23 14:45 [facility] (Rec: 12/02/23 16:51 [facility] [id number]) Manual Assessments Soft Tissue Assessment Soft Tissue Mobility Assessment pt swollen in lower leg and knee but limited bruising in ant knee; some bleeding at inf incision only PT-OP-G Mobility & Gait Start: 12/01/23 09:21 Freq: Status: Active Protocol: Document 12/02/23 14:45 [facility] (Rec: 12/02/23 16:51 [facility] [id number]) OP Gait Assessment Assistive Devices Assistive Device Front Wheeled Walker Gait Deviations General Gait Pattern Antalgic,Decreased Stride Length,Decreased Feet Clearance,Flexed Trunk PT-OP-K Range of Motion Start: 12/01/23 09:21 Freq: Status: Active Protocol: Document 02/17/24 13:08 [facility] (Rec: 02/17/24 13:48 [facility] [id number]) Knee Goniometric Range of Motion Knee Right Flexion Active (degrees) 110 Extension Active (degrees) 5 PT-OP-M Strength Start: 12/01/23 09:21 Freq: Status: Active Protocol: Document 02/17/24 13:08 [facility] (Rec: 02/17/24 13:48 [facility] [id number]) Knee Strength Knee Manual Muscle Testing Right Flexion (S2) 5 Normal Extension (L3) 5 Normal Left Flexion (S2) 5 Normal Extension (L3) 5 Normal Ankle/Foot Strength Ankle and Foot Manual Muscle Testing Right Dorsiflexion (L4) 5 Normal Plantarflexion (S1) 5 Normal Comments 20 heel raises Left Dorsiflexion (L4) 5 Normal Plantarflexion (S1) 5 Normal Comments 20 heel raises PT-OP-Q Treatments Start: 12/01/23 09:21 Freq: Status: Active Protocol: Document 02/17/24 13:08 [facility] (Rec: 02/17/24 13:48 [facility] [id number]) Therapeutic Exercises Supine Exercises hamstring stretch Side right Equipment Used strap Reps/Minutes 60 sec X 2 ext Supine Exercise Name ext/flex AROM Side right quad set Side right Reps/Minutes 5 sec x10 Sitting Exercises knee flex Sitting Exercise Name seated flex Side right Reps/Minutes 30 sec Standing Exercises ankle/knee mobility Standing Exercise Name knee flex stretch on step Side bilateral Reps/Minutes [id number] and 5 reps Other Exercises isometrics Other Exercise Name LE MMT Side bilateral Manual Therapy Treatment Consent Patient gave verbal consent for manual Yes treatment Soft Tissue Mobilization calf Body Location R Mobilization Type Cross-Friction,Rolling Intensity/Depth Moderate Body Position Hooklying Comments knee off bolster scar mobility Body Location R knee Mobilization Type Cross-Friction,Myofascial Release Intensity/Depth Moderate Body Position Hooklying Comments w/flex thigh Body Location R HS & quad and circumfrential Comments w/quad set Joint Mobilizations hip Joint R IR free the ball and IR hip on axis FM Body Position Supine right knee Comments AP tibia and Femur Patella [place] Joint R Patella Direction sup, inf, med, CW and CCW Grade IV Body Position Supine Comments med>Sup/inf/lat PT-OP-R Modalities Start: 12/01/23 09:21 Freq: Status: Active Protocol: Document 12/16/23 14:35 J[facility] (Rec: 12/16/23 17:02 J[facility] [id number]) Hot Pack/Cold Pack Treatment Cold Pack Location right knee Patient Position Hooklying Comments 10 minutes PT-OP-T Assessment and Plan Start: 12/01/23 09:21 Freq: Status: Active Protocol: Document 02/17/24 13:08 [facility] (Rec: 02/17/24 13:48 [facility] [id number]) Physical Therapy Assessment Goals activity Short Term Goal (STG) Pt will be able to do 1 mile walks without pain in R knee greater than 3/10 01/04-has not tried walks 01/28/24: walking dog 1/2 mile and no pain but not enough time go further. Will put watch that counts step for mileage too. STG Duration achieved 02/16 Halfway Goal (LTG) pt will be able to go for 2 mile walks w/o inc pain in knee greater than 1/10 LTG Duration achieved has been doing 10k steps a day balance Halfway Goal (LTG) Pt willb e able to stand SLS B 10 sec ea 01/04-7 sec L; 9 sec R 01/28/24: facing rail best-L 8 sec, R 9 sec LTG Duration achieved to 20 sec R, 12 sec L strength Short Term Goal (STG) pt will be indep w/HEP 01/04-compliant w/some exercises 01/28/24: added resisted R knee flexion & ext TB #1, reviewed knee mobility on step, prone R knee flexion with strap, use rolling pin quad/ITB/HS/calf (declined HOs). STG Duration achieved Engineering Research Manager Goal (LTG) pt will score 5/5 B LEs to show improved stability for ability to do stairs. 01/04-improved LTG Duration achieved 02/16 ROM Short Term Goal (STG) Pt will have 5-100 deg ROM to allow improved mobility. 01/04-9-103 01/28/24: some pain reported. ROM taken post manual 9-112deg ; prior to manual, 6-108deg STG Duration achieved to 5-110 Engineering Research Manager Goal (LTG) Pt will have 0-120 deg ROM of R knee to allow improved mobility and ease w/stairs LTG Duration 03/30 Assessment Summary Assessment Pt progressing well with strength and funcitonal ability along w/balance. She is still limited w/flex/ext ROM and would benefit Physical Therapy Plan Frequency and Duration Frequency of Treatment 1-2x/wk Duration of treatment (weeks) 6 Plan of Care Start Date 02/17/24 Plan of Care End Date 03/30/24 Next Visit Focus/Plan Next Note Type Treatment Note Next Visit Plan focus on ROM w/manual and stretches
--- NOTE | 2024-02-17 13:50 | PT.OPPOC ---
Physical, Occupational & Speech Therapy At [facility] Current Diagnoses Unilateral primary osteoarthritis, right knee (02/17/24) Difficulty in walking, not elsewhere classified (02/17/24) Weakness (02/17/24) Visit Care Team Role Provider Type SEDRICK Morejon Family Provider Non-Staff Primary Care Provider Specialty: Medical Address: [address] [place] [address], [place], [address] Email: Hernan Summers PA-C Attending Provider Non-Staff Referring Provider Specialty: Medical Address: [address] [place] [address] , [place], [address] Email: Plan Of Care PT-OP-B Current Condition Start: 12/01/23 09:21 Freq: Status: Active Protocol: Document 12/02/23 14:45 [facility] (Rec: 12/02/23 16:51 [facility] [id number]) Current Condition History of Current Condition Onset Date 11/25 Current Complaints R UKA History of Current Condition Pt had R UKA w/knee block and has started to dec frequency of pain meds. SHe had a lot of pain w/keeping knee bent. Pt has follow up next Tu w/PA and will see the provider at 4 -6 weeks post op. Hx of L UKA about 1 year ago. 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 She has been compliant w/exercises and has done well in her home. She has friends helping her Treatment Goals Patient/Caregiver Goals be able to walk, be able to drive, play tennis , improve balance PT-OP-T Assessment and Plan Start: 12/01/23 09:21 Freq: Status: Active Protocol: Document 02/17/24 13:08 [facility] (Rec: 02/17/24 13:48 [facility] [id number]) Physical Therapy Assessment Goals activity Short Term Goal (STG) Pt will be able to do 1 mile walks without pain in R knee greater than 3/10 01/04-has not tried walks 01/28/24: walking dog 1/2 mile and no pain but not enough time go further. Will put watch that counts step for mileage too. STG Duration achieved 02/16 Senior Living Goal (LTG) pt will be able to go for 2 mile walks w/o inc pain in knee greater than 1/10 LTG Duration achieved has been doing 10k steps a day balance Senior Living Goal (LTG) Pt willb e able to stand SLS B 10 sec ea 01/04-7 sec L; 9 sec R 01/28/24: facing rail best-L 8 sec, R 9 sec LTG Duration achieved to 20 sec R, 12 sec L strength Short Term Goal (STG) pt will be indep w/HEP 01/04-compliant w/some exercises 01/28/24: added resisted R knee flexion & ext TB #1, reviewed knee mobility on step, prone R knee flexion with strap, use rolling pin quad/ITB/HS/calf (declined HOs). STG Duration achieved Supervisor Mechanic Boilermaking Goal (LTG) pt will score 5/5 B LEs to show improved stability for ability to do stairs. 01/04-improved LTG Duration achieved 02/16 ROM Short Term Goal (STG) Pt will have 5-100 deg ROM to allow improved mobility. 01/04-9-103 01/28/24: some pain reported. ROM taken post manual 9-112deg ; prior to manual, 6-108deg STG Duration achieved to 5-110 Supervisor Mechanic Boilermaking Goal (LTG) Pt will have 0-120 deg ROM of R knee to allow improved mobility and ease w/stairs LTG Duration 03/30 Assessment Summary Assessment Pt progressing well with strength and funcitonal ability along w/balance. She is still limited w/flex/ext ROM and would benefit Physical Therapy Plan Frequency and Duration Frequency of Treatment 1-2x/wk Duration of treatment (weeks) 6 Plan of Care Start Date 02/17/24 Plan of Care End Date 03/30/24 Next Visit Focus/Plan Next Note Type Treatment Note Next Visit Plan focus on ROM w/manual and stretches Plan of Care Dates Plan of Care Start Date 02/17/24 Plan of Care End Date 03/30/24 Electronically Signed by: Fernanda Novak, PT 02/17/24 7589 If you are in agreement with this Plan of Care, please return a signed and dated copy. I have reviewed this Plan of Care and certify that the skilled therapy services above are required to meet the patient?s needs. Physician Signature Date Printed Name and Credentials Clinical Instructor Signature Printed Name and Credentials
--- NOTE | 2024-02-17 17:14 | PT.OPPOC ---
Physical, Occupational & Speech Therapy At [facility] Current Diagnoses Unilateral primary osteoarthritis, right knee (02/26/24) Difficulty in walking, not elsewhere classified (02/26/24) Weakness (02/26/24) Visit Care Team Role Provider Type SEDRICK Morejon Family Provider Non-Staff Primary Care Provider Specialty: Medical Address: [address] [place] [address], [place], [address] Email: Hernan Summers PA-C Attending Provider Non-Staff Referring Provider Specialty: Medical Address: [address] [place] [address] , [place], [address] Email: Plan Of Care PT-OP-B Current Condition Start: 12/01/23 09:21 Freq: Status: Active Protocol: Document 12/02/23 14:45 [facility] (Rec: 12/02/23 16:51 [facility] [id number]) Current Condition History of Current Condition Onset Date 11/25 Current Complaints R UKA History of Current Condition Pt had R UKA w/knee block and has started to dec frequency of pain meds. SHe had a lot of pain w/keeping knee bent. Pt has follow up next Tu w/PA and will see the provider at 4 -6 weeks post op. Hx of L UKA about 1 year ago. 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 She has been compliant w/exercises and has done well in her home. She has friends helping her Treatment Goals Patient/Caregiver Goals be able to walk, be able to drive, play tennis , improve balance PT-OP-T Assessment and Plan Start: 12/01/23 09:21 Freq: Status: Active Protocol: Document 04/12/24 10:13 [facility] (Rec: 02/17/24 13:48 [facility] [id number]) Physical Therapy Assessment Goals activity Short Term Goal (STG) Pt will be able to do 1 mile walks without pain in R knee greater than 3/10 01/04-has not tried walks 01/28/24: walking dog 1/2 mile and no pain but not enough time go further. Will put watch that counts step for mileage too. STG Duration achieved 02/16 Residential Goal (LTG) pt will be able to go for 2 mile walks w/o inc pain in knee greater than 1/10 LTG Duration achieved has been doing 10k steps a day balance Residential Goal (LTG) Pt willb e able to stand SLS B 10 sec ea 01/04-7 sec L; 9 sec R 01/28/24: facing rail best-L 8 sec, R 9 sec LTG Duration achieved to 20 sec R, 12 sec L strength Short Term Goal (STG) pt will be indep w/HEP 01/04-compliant w/some exercises 01/28/24: added resisted R knee flexion & ext TB #1, reviewed knee mobility on step, prone R knee flexion with strap, use rolling pin quad/ITB/HS/calf (declined HOs). STG Duration achieved Cinetechnician Goal (LTG) pt will score 5/5 B LEs to show improved stability for ability to do stairs. 01/04-improved LTG Duration achieved 02/16 ROM Short Term Goal (STG) Pt will have 5-100 deg ROM to allow improved mobility. 01/04-9-103 01/28/24: some pain reported. ROM taken post manual 9-112deg ; prior to manual, 6-108deg STG Duration achieved to 5-110 Cinetechnician Goal (LTG) Pt will have 0-120 deg ROM of R knee to allow improved mobility and ease w/stairs LTG Duration 03/30 Assessment Summary Assessment Pt progressing well with strength and funcitonal ability along w/balance. She is still limited w/flex/ext ROM and would benefit Physical Therapy Plan Frequency and Duration Frequency of Treatment 1-2x/wk Duration of treatment (weeks) 10 Plan of Care Start Date 02/17/24 Plan of Care End Date 04/27/24 Next Visit Focus/Plan Next Note Type Treatment Note Next Visit Plan focus on ROM w/manual and stretches Plan of Care Dates Plan of Care Start Date 02/17/24 Plan of Care End Date 04/27/24 Electronically Signed by: Fernanda Novak, PT 04/12/24 1014 If you are in agreement with this Plan of Care, please return a signed and dated copy. I have reviewed this Plan of Care and certify that the skilled therapy services above are required to meet the patient?s needs. Physician Signature Date Printed Name and Credentials Clinical Instructor Signature Printed Name and Credentials
--- NOTE | 2024-02-24 16:49 | PT.OTN ---
Current Diagnoses Unilateral primary osteoarthritis, right knee (02/24/24) Difficulty in walking, not elsewhere classified (02/24/24) Weakness (02/24/24) Physical Therapy Treatment Note PT-OP-A Visit Information Start: 12/01/23 09:21 Freq: Status: Active Protocol: Document 02/24/24 16:09 [facility] (Rec: 02/24/24 16:46 [facility] [id number]) Out-Patient Physical Therapy Visit Information Visit Information Visit Type Treatment Note Visit Note 08/30 Visit Start Time 16:05 Visit Stop Time 16:45 Visit Number 15 Number of SUPERVISOR IN CHARGE Visits 0 PT-OP-B Current Condition Start: 12/01/23 09:21 Freq: Status: Active Protocol: Document 12/02/23 14:45 [facility] (Rec: 12/02/23 16:51 [facility] [id number]) Current Condition History of Current Condition Onset Date 11/25 Current Complaints R UKA History of Current Condition Pt had R UKA w/knee block and has started to dec frequency of pain meds. SHe had a lot of pain w/keeping knee bent. Pt has follow up next Tues w/PA and will see the provider at 4 -6 weeks post op. Hx of L UKA about 1 year ago. 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 She has been compliant w/exercises and has done well in her home. She has friends helping her Treatment Goals Patient/Caregiver Goals be able to walk, be able to drive, play tennis , improve balance PT-OP-C Subjective Start: 12/01/23 09:21 Freq: Status: Active Protocol: Document 02/24/24 16:09 [facility] (Rec: 02/24/24 16:46 [facility] [id number]) OP-PT Subjective Patient Comments Patient Comments Pt reports doing a little stretching and 15 min of bike yesterday PT-OP-F Manual Assessment Start: 12/01/23 09:21 Freq: Status: Active Protocol: Document 12/02/23 14:45 [facility] (Rec: 12/02/23 16:51 [facility] [id number]) Manual Assessments Soft Tissue Assessment Soft Tissue Mobility Assessment pt swollen in lower leg and knee but limited bruising in ant knee; some bleeding at inf incision only PT-OP-G Mobility & Gait Start: 12/01/23 09:21 Freq: Status: Active Protocol: Document 12/02/23 14:45 [facility] (Rec: 12/02/23 16:51 [facility] [id number]) OP Gait Assessment Assistive Devices Assistive Device Front Wheeled Walker Gait Deviations General Gait Pattern Antalgic,Decreased Stride Length,Decreased Feet Clearance,Flexed Trunk PT-OP-K Range of Motion Start: 12/01/23 09:21 Freq: Status: Active Protocol: Document 02/17/24 13:08 [facility] (Rec: 02/17/24 13:48 [facility] [id number]) Knee Goniometric Range of Motion Knee Right Flexion Active (degrees) 110 Extension Active (degrees) 5 PT-OP-M Strength Start: 12/01/23 09:21 Freq: Status: Active Protocol: Document 02/17/24 13:08 [facility] (Rec: 02/17/24 13:48 [facility] [id number]) Knee Strength Knee Manual Muscle Testing Right Flexion (S2) 5 Normal Extension (L3) 5 Normal Left Flexion (S2) 5 Normal Extension (L3) 5 Normal Ankle/Foot Strength Ankle and Foot Manual Muscle Testing Right Dorsiflexion (L4) 5 Normal Plantarflexion (S1) 5 Normal Comments 20 heel raises Left Dorsiflexion (L4) 5 Normal Plantarflexion (S1) 5 Normal Comments 20 heel raises PT-OP-Q Treatments Start: 12/01/23 09:21 Freq: Status: Active Protocol: Document 02/24/24 16:09 [facility] (Rec: 02/24/24 16:46 [facility] [id number]) Cardio Equipment Recumbent Bicycle Duration (Minutes) 6 Resistance 6 Seat Position 5 Other fwd full revoluntions Gym Equipment Therapeutic Ball supine Exercise Details knee flex Ball Size/Color 45 cm Reps/Duration 10 sec x10 Therapeutic Exercises Supine Exercises hamstring stretch Side right Equipment Used strap Reps/Minutes 60 sec quad set Side right Reps/Minutes 5 sec x10 Sitting Exercises knee flex Sitting Exercise Name seated flex Side right Reps/Minutes 10 sec x6 Standing Exercises ankle/knee mobility Standing Exercise Name knee flex stretch on step Side bilateral Reps/Minutes [id number] and 5 reps in/out range Manual Therapy Treatment Consent Patient gave verbal consent for manual Yes treatment Soft Tissue Mobilization calf Body Location R Mobilization Type Cross-Friction,Rolling Intensity/Depth Moderate Body Position Hooklying Comments knee off bolster scar mobility Body Location R knee Mobilization Type Cross-Friction,Myofascial Release Intensity/Depth Moderate Body Position Hooklying Comments w/flex thigh Body Location R HS & quad and circumfrential Comments w/quad set Joint Mobilizations right knee Comments PA tibia FM Patella [place] Joint R Patella Direction sup, inf, med Grade IV Body Position Supine PT-OP-R Modalities Start: 12/01/23 09:21 Freq: Status: Active Protocol: Document 12/16/23 14:35 J[facility] (Rec: 12/16/23 17:02 J [id number]) Hot Pack/Cold Pack Treatment Cold Pack Location right knee Patient Position Hooklying Comments 10 minutes PT-OP-T Assessment and Plan Start: 12/01/23 09:21 Freq: Status: Active Protocol: Document 02/24/24 16:09 [facility] (Rec: 02/24/24 16:46 [facility] [id number]) Physical Therapy Assessment Goals activity Short Term Goal (STG) Pt will be able to do 1 mile walks without pain in R knee greater than 310 01/04-has not tried walks 01/28/24: walking dog 1/2 mile and no pain but not enough time go further. Will put watch that counts step for mileage too. STG Duration achieved 02/16 Printing Press Operator Goal (LTG) pt will be able to go for 2 mile walks w/o inc pain in knee greater than 1/10 LTG Duration achieved has been doing 10k steps a day balance [facility] Goal (LTG) Pt willb e able to stand SLS B 10 sec ea 01/04-7 sec L; 9 sec R 01/28/24: facing rail best-L 8 sec, R 9 sec LTG Duration achieved to 20 sec R, 12 sec L strength Short Term Goal (STG) pt will be indep w/HEP 01/04-compliant w/some exercises 01/28/24: added resisted R knee flexion & ext TB #1, reviewed knee mobility on step, prone R knee flexion with strap, use rolling pin quad/ITB/HS/calf (declined HOs). STG Duration achieved Printing Press Operator Goal (LTG) pt will score 5/5 B LEs to show improved stability for ability to do stairs. 01/04-improved LTG Duration achieved 02/16 ROM Short Term Goal (STG) Pt will have 5-100 deg ROM to allow improved mobility. 01/04-9-103 01/28/24: some pain reported. ROM taken post manual 9-112deg ; prior to manual, 6-108deg STG Duration achieved to 5-110 [facility] Goal (LTG) Pt will have 0-120 deg ROM of R knee to allow improved mobility and ease w/stairs LTG Duration 03/30 Assessment Summary Assessment Pt started w/6-106 ROM today and imrpoved to 5-110 after manual and exercises. REquires cues w/exercises for form and for push to end range. Physical Therapy Plan Frequency and Duration Frequency of Treatment 1-2x/wk Duration of treatment (weeks) 6 Plan of Care Start Date 02/17/24 Plan of Care End Date 03/30/24 Next Visit Focus/Plan Next Note Type Treatment Note Next Visit Plan focus on ROM w/manual and stretches
--- NOTE | 2024-02-26 13:42 | PT.OTN ---
Current Diagnoses Unilateral primary osteoarthritis, right knee (02/26/24) Difficulty in walking, not elsewhere classified (02/26/24) Weakness (02/26/24) Physical Therapy Treatment Note PT-OP-A Visit Information Start: 12/01/23 09:21 Freq: Status: Active Protocol: Document 02/26/24 13:02 SP (Rec: 02/26/24 13:49 SP [id number]) Out-Patient Physical Therapy Visit Information Visit Information Visit Type Treatment Note Visit Note 09/27 Visit Start Time 13:02 Visit Stop Time 13:42 Visit Number 16 Number of POSTDOCTORAL FELLOW Visits 1 PT-OP-B Current Condition Start: 12/01/23 09:21 Freq: Status: Active Protocol: Document 12/02/23 14:45 [facility] (Rec: 12/02/23 16:51 [facility] [id number]) Current Condition History of Current Condition Onset Date 11/25 Current Complaints R UKA History of Current Condition Pt had R UKA w/knee block and has started to dec frequency of pain meds. SHe had a lot of pain w/keeping knee bent. Pt has follow up next Tues w/PA and will see the provider at 4 -6 weeks post op. Hx of L UKA about 1 year ago. 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 She has been compliant w/exercises and has done well in her home. She has friends helping her Treatment Goals Patient/Caregiver Goals be able to walk, be able to drive, play tennis , improve balance PT-OP-C Subjective Start: 12/01/23 09:21 Freq: Status: Active Protocol: Document 02/26/24 13:02 SP (Rec: 02/26/24 13:49 SP [id number]) OP-PT Subjective Patient Comments Patient Comments Arrives mask rusty, mom sick home, being cautious for all around her. Pt reports trying to find a surface to do Maxwell Stretch for the good quad stretch. PT-OP-F Manual Assessment Start: 12/01/23 09:21 Freq: Status: Active Protocol: Document 12/02/23 14:45 [facility] (Rec: 12/02/23 16:51 [facility] [id number]) Manual Assessments Soft Tissue Assessment Soft Tissue Mobility Assessment pt swollen in lower leg and knee but limited bruising in ant knee; some bleeding at inf incision only PT-OP-G Mobility & Gait Start: 12/01/23 09:21 Freq: Status: Active Protocol: Document 12/02/23 14:45 [facility] (Rec: 12/02/23 16:51 [facility] [id number]) OP Gait Assessment Assistive Devices Assistive Device Front Wheeled Walker Gait Deviations General Gait Pattern Antalgic,Decreased Stride Length,Decreased Feet Clearance,Flexed Trunk PT-OP-K Range of Motion Start: 12/01/23 09:21 Freq: Status: Active Protocol: Document 02/17/24 13:08 [facility] (Rec: 02/17/24 13:48 [facility] [id number]) Knee Goniometric Range of Motion Knee Right Flexion Active (degrees) 110 Extension Active (degrees) 5 PT-OP-M Strength Start: 12/01/23 09:21 Freq: Status: Active Protocol: Document 02/17/24 13:08 [facility] (Rec: 02/17/24 13:48 [facility] [id number]) Knee Strength Knee Manual Muscle Testing Right Flexion (S2) 5 Normal Extension (L3) 5 Normal Left Flexion (S2) 5 Normal Extension (L3) 5 Normal Ankle/Foot Strength Ankle and Foot Manual Muscle Testing Right Dorsiflexion (L4) 5 Normal Plantarflexion (S1) 5 Normal Comments 20 heel raises Left Dorsiflexion (L4) 5 Normal Plantarflexion (S1) 5 Normal Comments 20 heel raises PT-OP-Q Treatments Start: 12/01/23 09:21 Freq: Status: Active Protocol: Document 02/26/24 13:02 SP (Rec: 02/26/24 13:49 SP [id number]) Cardio Equipment Recumbent Bicycle Duration (Minutes) 8 Resistance 6 Seat Position 5 Other fwd full revoluntions Therapeutic Exercises Prone Exercises R knee flexion Side right Equipment Used use strap, folded towel under thigh above knee Reps/Minutes 3 reps 20 SH Comments reports good quad stretch, ed not push into pain Sitting Exercises knee flex Sitting Exercise Name seated flex Side right Equipment Used scooter, mesh chair Reps/Minutes 10 sec x6 Standing Exercises ankle/knee mobility Standing Exercise Name knee flex stretch on step Side bilateral Resistance L knee 112* AAROM flexion Equipment Used 2nd step (discussed use chair as well alternative) Reps/Minutes [id number] and 5 reps in/out range Other Exercises self STMs Other Exercise Name rolling pin: quad, HS, calf, ITB Comments ed with pt demonstration seated Manual Therapy Treatment Soft Tissue Mobilization calf Body Location R Mobilization Type Instrument Assisted,Rolling Intensity/Depth Moderate Body Position seated Comments manual and ed use rolling pin scar mobility Body Location R knee Mobilization Type Cross-Friction,Instrument Assisted,Myofascial Release Intensity/Depth Moderate Body Position seated Comments w/flex cupping and cross friction, ed self thigh Body Location R quad, calf Mobilization Type Instrument Assisted,Rolling Comments manual and rolling pin Joint Mobilizations right knee Comments 1. prone: tibia in femur self strap assisted flexion, inf glide 2. supine: femur on tibia PA( supported ext) 3. hooklying: tib under femur PA Patella [place] Joint R Patella Direction sup, inf, med Grade II Body Position Supine Neuro Re-Education Treatment Balance Activities hurdles Equipment 6 hurdles S, then added foam- CG- Anurag Comments cued knee flexion marching, no circumduction PT-OP-R Modalities Start: 12/01/23 09:21 Freq: Status: Active Protocol: Document 12/16/23 14:35 JG (Rec: 12/16/23 17:02 JG [id number]) Hot Pack/Cold Pack Treatment Cold Pack Location right knee Patient Position Hooklying Comments 10 minutes PT-OP-T Assessment and Plan Start: 12/01/23 09:21 Freq: Status: Active Protocol: Document 02/26/24 13:02 SP (Rec: 02/26/24 13:49 SP [id number]) Physical Therapy Assessment Goals activity Short Term Goal (STG) Pt will be able to do 1 mile walks without pain in R knee greater than 3/10 01/04-has not tried walks 01/28/24: walking dog 1/2 mile and no pain but not enough time go further. Will put watch that counts step for mileage too. STG Duration achieved 02/16 Nurse Examiner Goal (LTG) pt will be able to go for 2 mile walks w/o inc pain in knee greater than 1/10 LTG Duration achieved has been doing 10k steps a day balance [facility] Goal (LTG) Pt willb e able to stand SLS B 10 sec ea 01/04-7 sec L; 9 sec R 01/28/24: facing rail best-L 8 sec, R 9 sec LTG Duration achieved to 20 sec R, 12 sec L strength Short Term Goal (STG) pt will be indep w/HEP 01/04-compliant w/some exercises 01/28/24: added resisted R knee flexion & ext TB #1, reviewed knee mobility on step, prone R knee flexion with strap, use rolling pin quad/ITB/HS/calf (declined HOs). STG Duration achieved [facility] Goal (LTG) pt will score 5/5 B LEs to show improved stability for ability to do stairs. 01/04-improved LTG Duration achieved 02/16 ROM Short Term Goal (STG) Pt will have 5-100 deg ROM to allow improved mobility. 01/04-9-103 01/28/24: some pain reported. ROM taken post manual 9-112deg ; prior to manual, 6-108deg STG Duration achieved to 5-110 Nurse Examiner Goal (LTG) Pt will have 0-120 deg ROM of R knee to allow improved mobility and ease w/stairs LTG Duration 03/30 Assessment Summary Assessment Pt good response to manual use smallest cupping for scar mobility into flexion and review use of rolling pin to allow self carryover quad flexibility. Good quad stretch initiated prone use strap at ankle stretch. Pt improved L knee AROM 3-112 deg by end tx, improvement of 2 deg ext and flexion from previous tx. Trialed glenn stepping for functional AROM, cued for knee and hip flexion and limit circumduction with slower pacing, was able to progress uneven foam but needed Min support as needed out in open space of gym. Physical Therapy Plan Frequency and Duration Frequency of Treatment 1-2x/wk Duration of treatment (weeks) 6 Plan of Care Start Date 02/17/24 Plan of Care End Date 03/30/24 Therapeutic Interventions Therapeutic Interventions Balance Training,Gait Training ,Home Exercise Program,Joint Mobilizations,Manual Therapy, Neuromuscular Re-education, Patient/Caregiver Education, Self-Care/Home Management,Soft Tissue Mobilization,Taping, Therapeutic Activities, Therapeutic Exercises Modalities Cold Pack/Ice Massage,Electric Stimulation,Hot Packs Next Visit Focus/Plan Next Note Type Treatment Note Next Visit Plan Will send message to add more appts, [place] 02/25-03/04. Warm up recumbent bike stepper . Continue glenn stepping, add supported mini squat vs step ups for functional ROM. Possible shuttle recovery assist light resistance AAROM. PT POC: focus on ROM w/manual and stretches
--- NOTE | 2024-03-04 13:00 | PT-OP ANOTE ---
Pt cancelled today's appt, family emergency.
--- NOTE | 2024-03-31 10:01 | PT-OP ANOTE ---
Pt called and VM left re: no show and this was last scheduled appt. Asked pt to call back to inform if plans to cont PT
--- NOTE | 2024-05-03 14:15 | PT.OPDS ---
Current Diagnoses Unilateral primary osteoarthritis, right knee (02/26/24) Difficulty in walking, not elsewhere classified (02/26/24) Weakness (02/26/24) Visit Care Team Role Provider Type SEDRICK Morejon Family Provider Non-Staff Primary Care Provider Specialty: Medical Address: [address], [place], [address] Email: Hernan Summers PA-C Attending Provider Non-Staff Referring Provider Specialty: Medical Address: [address] [place] [address] , [place], [address] Email: Visit Number Visit Number 16 Discharge Summary PT-OP-B Current Condition Start: 12/01/23 09:21 Freq: Status: Active Protocol: Document 12/02/23 14:45 [facility] (Rec: 12/02/23 16:51 [facility] [id number]) Current Condition History of Current Condition Onset Date 11/25 Current Complaints R UKA History of Current Condition Pt had R UKA w/knee block and has started to dec frequency of pain meds. SHe had a lot of pain w/keeping knee bent. Pt has follow up next Tu w/PA and will see the provider at 4 -6 weeks post op. Hx of L UKA about 1 year ago. 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 She has been compliant w/exercises and has done well in her home. She has friends helping her Treatment Goals Patient/Caregiver Goals be able to walk, be able to drive, play tennis , improve balance PT-OP-C Subjective Start: 12/01/23 09:21 Freq: Status: Active Protocol: Document 02/26/24 13:02 SP (Rec: 02/26/24 13:49 SP [id number]) OP-PT Subjective Patient Comments Patient Comments Arrives mask rusty, mom sick home, being cautious for all around her. Pt reports trying to find a surface to do Maxwell Stretch for the good quad stretch. PT-OP-F Manual Assessment Start: 12/01/23 09:21 Freq: Status: Active Protocol: Document 12/02/23 14:45 [facility] (Rec: 12/02/23 16:51 [facility] [id number]) Manual Assessments Soft Tissue Assessment Soft Tissue Mobility Assessment pt swollen in lower leg and knee but limited bruising in ant knee; some bleeding at inf incision only PT-OP-G Mobility & Gait Start: 12/01/23 09:21 Freq: Status: Active Protocol: Document 12/02/23 14:45 [facility] (Rec: 12/02/23 16:51 [facility] [id number]) OP Gait Assessment Assistive Devices Assistive Device Front Wheeled Walker Gait Deviations General Gait Pattern Antalgic,Decreased Stride Length,Decreased Feet Clearance,Flexed Trunk PT-OP-K Range of Motion Start: 12/01/23 09:21 Freq: Status: Active Protocol: Document 02/17/24 17:13 [facility] (Rec: 02/17/24 13:48 [facility] [id number]) Knee Goniometric Range of Motion Knee Right Flexion Active (degrees) 110 Extension Active (degrees) 5 PT-OP-M Strength Start: 12/01/23 09:21 Freq: Status: Active Protocol: Document 02/17/24 17:13 [facility] (Rec: 02/17/24 13:48 [id number] Knee Strength Knee Manual Muscle Testing Right Flexion (S2) 5 Normal Extension (L3) 5 Normal Left Flexion (S2) 5 Normal Extension (L3) 5 Normal Ankle/Foot Strength Ankle and Foot Manual Muscle Testing Right Dorsiflexion (L4) 5 Normal Plantarflexion (S1) 5 Normal Comments 20 heel raises Left Dorsiflexion (L4) 5 Normal Plantarflexion (S1) 5 Normal Comments 20 heel raises PT-OP-T Assessment and Plan Start: 12/01/23 09:21 Freq: Status: Active Protocol: Document 05/03/24 14:13 [facility] (Rec: 05/03/24 14:14 [facility] [id number]) Physical Therapy Assessment Goals activity Short Term Goal (STG) Pt will be able to do 1 mile walks without pain in R knee greater than 3/10 01/04-has not tried walks 01/28/24: walking dog 1/2 mile and no pain but not enough time go further. Will put watch that counts step for mileage too. STG Duration achieved 02/16 Host Hostess Goal (LTG) pt will be able to go for 2 mile walks w/o inc pain in knee greater than 1/10 LTG Duration achieved has been doing 10k steps a day balance Host Hostess Goal (LTG) Pt willb e able to stand SLS B 10 sec ea 01/04-7 sec L; 9 sec R 01/28/24: facing rail best-L 8 sec, R 9 sec LTG Duration achieved to 20 sec R, 12 sec L strength Short Term Goal (STG) pt will be indep w/HEP 01/04-compliant w/some exercises 01/28/24: added resisted R knee flexion & ext TB #1, reviewed knee mobility on step, prone R knee flexion with strap, use rolling pin quad/ITB/HS/calf (declined HOs). STG Duration achieved Jail Goal (LTG) pt will score 5/5 B LEs to show improved stability for ability to do stairs. 01/04-improved LTG Duration achieved 02/16 ROM Short Term Goal (STG) Pt will have 5-100 deg ROM to allow improved mobility. 01/04-9-103 01/28/24: some pain reported. ROM taken post manual 9-112deg ; prior to manual, 6-108deg STG Duration achieved to 5-110 Jail Goal (LTG) Pt will have 0-120 deg ROM of R knee to allow improved mobility and ease w/stairs LTG Duration 03/30 Assessment Summary Assessment Pt cancelled last scheduled visit and did not reschedule and has not been seen in over 2 months for knee. She has new eval set for later this week fo rntr. DC d/t no longer attending PT for this. Pt had made good progress w/PT overall but had lacking ROM when last seen Physical Therapy Plan Discharge Physical Therapy Discharge Reasons No Longer Attending PT
== END 2024-05-04 14:48 | disposition home or self-care (01) ==
LOC: PHYS 13:00
PROVIDERS: Family Provider Nurse Practitioner; PCP Nurse Practitioner; Referring Provider Physician Assistant; Visit Provider Physician Assistant
DX: M17.11 Unilateral primary osteoarthritis, right knee (principal); R53.1 Weakness; R26.2 Difficulty in walking, not elsewhere classified
CPT/HCPCS: 97110; 97140; 97162

== ENCOUNTER → 2024-04-10 16:52 | Outpatient (CLI) | payer MEDICARE, BC, SELFPAY ==
[2024-04-10 17:45] LABS: COVID-19 CEPHEID 4-PLEX PCR Negative (Negative); Influenza A - CEPHEID Flu A POSITIVE (NEGATIVE); Influenza B - CEPHEID Flu B NEGATIVE (NEGATIVE); Respiratory Syncytial Virus Negative (Negative)
== END ==
PROVIDERS: Family Provider Nurse Practitioner; PCP Nurse Practitioner; Visit Provider Physician Assistant Surgical
DX: R05.1 Acute cough (principal)
CPT/HCPCS: 0241U; 87070

== ENCOUNTER → 2024-04-16 08:34 | Outpatient (CLI) | payer MEDICARE, BC, SELFPAY ==
--- NOTE | 2024-04-16 08:35 | DI.US.S_ITS ---
PROCEDURE: US CAROTID DOPPLER BI INDICATIONS: CAROTID STENOSIS TECHNIQUE: Color and pulse Doppler interrogation was performed of both carotid systems, with image documentation and velocity measurements. COMPARISON: [facility], CT, CT ANGIO HEAD AND NECK, 10/07/2019, 19:38. [facility], US, US CAROTID DOPPLER BI, 04/12/2021, 8:19. [facility], US, US CAROTID DOPPLER BI, 02/10/2023, 10:34. FINDINGS: Stenosis calculations are based on SRU (Society of Radiologists in Ultrasound) criteria. The flow velocities and the arterial waveforms are normal within both carotid arterial systems. Modic mild atherosclerotic plaque is seen on both sides. The estimated degree of internal carotid artery stenosis is less than 50%. Antegrade flow is confirmed within both vertebral arteries. IMPRESSION: No hemodynamically significant stenosis is seen. No significant change compared to the prior. Mild atherosclerotic plaque is noted bilaterally. Dictated by: Jed Lyman M.D. on 04/16/2024 at 13:18 Approved by: Jed Lyman M.D. on 04/16/2024 at 13:20
== END ==
PROVIDERS: Family Provider Nurse Practitioner; PCP Nurse Practitioner; Referring Provider Nurse Practitioner; Visit Provider Nurse Practitioner
DX: I65.23 Occlusion and stenosis of bilateral carotid arteries (principal)
CPT/HCPCS: 93880

== ENCOUNTER 2024-08-18 13:45 | Outpatient (RCR) | payer MEDICARE, BC, SELFPAY ==
--- NOTE | 2024-05-06 15:03 | PT.OIE ---
Current Diagnoses Pain in right shoulder (05/06/24) Pain in left shoulder (05/06/24) Cervicalgia (05/06/24) Past Medical History (Last Reviewed 04/23/23 @ 16:42 by Lance Tucker DO) Degenerative joint disease of knee Facet arthropathy, lumbar Osteoarthrosis Scoliosis Visit Care Team Role Provider Type SEDRICK Morejon Attending Provider Non-Staff Family Provider Primary Care Provider Referring Provider Specialty: Medical Address: [address] [place] [address], [phone] Email: Physical Therapy Initial Evaluation PT-OP-A Visit Information Start: 04/12/24 10:11 Freq: Status: Active Protocol: Document 05/06/24 09:54 [facility] (Rec: 05/06/24 10:49 [facility] [id number]) Out-Patient Physical Therapy Visit Information Visit Information Visit Start Time 09:52 Visit Stop Time 10:32 Visit Number 1 Number of MENTAL HEALTH DIRECTOR Visits 0 PT-OP-B Current Condition Start: 04/12/24 10:11 Freq: Status: Active Protocol: Document 05/06/24 09:54 [facility] (Rec: 05/06/24 10:49 [facility] [id number]) Current Condition History of Current Condition Onset Date few months Current Complaints B brachium, neck History of Current Condition Had xrays in shoulders and R shows OA, L shows nothing and neck xray shows degeneration. Feels like ripping in B brachiums. Fell at [facility] run and that iritated L shoulder ( this was after xray). She had bruises for weeks. she was able to move it. no injury to R shoulder or neck. SHe has been doing a lot of moving for her cousin and that is increasing pain. hx of chronic LBP. She is getting massage 1x/month. denies numbness/ tingling in arms, dizziness, LIM, lightheadeness Treatment Goals Patient/Caregiver Goals improve mobility of arms PT-OP-C Subjective Start: 04/12/24 10:11 Freq: Status: Active Protocol: Document 05/06/24 09:54 [facility] (Rec: 05/06/24 10:49 [facility] [id number]) Patient Questionnaires Quick Dash- Upper Extremity Quick Dash UE Score 38.6 OP-PT Pain Assessment Location B brachium Description Aching,Sharp,With Movement Description- Other ripping w/certain mov't) Pain Aggravating Factors Lifting Other Pain Aggravating Factors certain turns, overhead motion Other Pain Alleviating Factors olive mendoza PT-OP-F Manual Assessment Start: 04/12/24 10:11 Freq: Status: Active Protocol: Document 05/06/24 09:54 [facility] (Rec: 05/06/24 10:49 [facility] [id number]) Manual Assessments Soft Tissue Assessment Soft Tissue Mobility Assessment tightness throughout cervical mm and tenderness along w/pec PT-OP-J Posture/Palpation/Skin Start: 04/12/24 10:11 Freq: Status: Active Protocol: Document 05/06/24 09:54 [facility] (Rec: 05/06/24 10:49 [facility] [id number]) Posture Evaluation Whitney Postural Classification System Whitney Postural Classifications Posterior/Anterior Elbow Flexion Test 1 Comments Posture Comments inc kyphosis, fwd head, L trunk rot, R 1st rib elevated, R scap >L fwd tilt, R scap abd and elevated PT-OP-K Range of Motion Start: 04/12/24 10:11 Freq: Status: Active Protocol: Document 05/06/24 09:54 [facility] (Rec: 05/06/24 10:49 [facility] [id number]) Cervical Spine Range of Motion Cervical Spine Active Degrees Flexion 68 Extension 17 Rotation Left 48 Rotation Right 42 Lateral Flexion Left 26 Lateral Flexion Right 17 Comments pain R rot and SB and ext Shoulder Goniometric Range of Motion Shoulder Right Active Flexion 116 Extension 39 Abduction 89 External Rotation at 0 degrees Abduction 51 Internal Rotation Behind Back (text) L5 Comments pain w/eccentric lowering Left Active Flexion 132 Extension 46 Abduction 104 External Rotation at 0 degrees Abduction 34 Internal Rotation Behind Back (text) t12 Comments pain w/lowering from overhead PT-OP-L Special Tests Start: 04/12/24 10:11 Freq: Status: Active Protocol: Document 05/06/24 09:54 [facility] (Rec: 05/06/24 10:49 [facility] [id number]) Special Tests Cervical Spine Special Tests Vertebral Artery Test Results positional screen neg, ausciltation of carotid and heart 4 points WNL Tectoral membrane Test Results neg Transverse Ligament Test Results neg Alar Ligament Test Results neg Traction Test Results relief Spurling's Test Test Results neg Shoulder Special Tests [place] Impingement Comments positive R neg L Neer Impingement Comments neg B Sulcus Comments neg B [place] Test Comments neg B Speed's Biceps Comments positive B Empty Can Comments neg B AC Joint Compression Comments neg B Neural Special Tests- Upper Body Median Nerve Tension Comments tension noted on L but dec w/ SB R neg R Radial Nerve Tension Comments tension noted on L but dec w/ SB R neg R Ulnar Nerve Tension Comments neg B PT-OP-M Strength Start: 04/12/24 10:11 Freq: Status: Active Protocol: Document 05/06/24 09:54 [facility] (Rec: 05/06/24 10:49 [facility] [id number]) Shoulder Strength Shoulder Manual Muscle Testing Right Flexion 3+ Fair+ Extension 3+ Fair+ Abduction (C5) 3 Fair External Rotation 3+ Fair+ Internal Rotation 3+ Fair+ Left Flexion 4- Good- Extension 3+ Fair+ Abduction (C5) 3 Fair External Rotation 3+ Fair+ Internal Rotation 4- Good- Elbow/Forearm Strength Elbow and Forearm Manual Muscle Testing Right Flexion (C6) 3+ Fair+ Extension (C7) 4 Good Pronation 4- Good- Supination 3+ Fair+ Left Flexion (C6) 3+ Fair+ Extension (C7) 4 Good Pronation 4- Good- Supination 3+ Fair+ PT-OP-Q Treatments Start: 04/12/24 10:11 Freq: Status: Active Protocol: Document 05/06/24 09:54 [facility] (Rec: 05/06/24 10:49 [facility] [id number]) Therapeutic Exercises Sitting Exercises rib Sitting Exercise Name 1st rib caudal Side right Equipment Used belt Reps/Minutes 10 Standing Exercises row Side bilateral Equipment Used orange Reps/Minutes 15 Comments cues scap IR Side bilateral Equipment Used orange Reps/Minutes 15 ER Side bilateral Equipment Used L1 Reps/Minutes 15 PT-OP-T Assessment and Plan Start: 04/12/24 10:11 Freq: Status: Active Protocol: Document 05/06/24 09:54 [facility] (Rec: 05/06/24 10:49 [facility] [id number]) Physical Therapy Assessment Rehab Potential Rehabilitation Potential Good Evaluation Complexity Number of Personal Factors/Comorbidities 3 or More Number of Body Systems Impaired 4 or More Clinical Presentation at Evaluation Evolving Impairments Impairments Activity Tolerance,Functional Activities,Functional Mobility ,Pain,Posture,ROM,Soft Tissue Mobility,Strength Goals activity Car Unloader Goal (LTG) Pt will report being able to do all typical lifting and household activities w/o inc pain >2/10 LTG Duration 07/29/24 strength Short Term Goal (STG) Pt will be indep w/HEP STG Duration 06/09 Usp Goal (LTG) Pt will score at least 4+/5 on BUE MMT and at least 3/5 on EFT to show improved stability and strength to make daily activities easier. LTG Duration 07/29 ROM Short Term Goal (STG) Pt will have at least 40 deg cervical ext and at least 65 deg B cervical rot. STG Duration 06/09 Usp Goal (LTG) Pt will have full shoulder AROM w/o inc pain to allow greater ease w/daily activities. Assessment Summary Assessment Pt presents w/neck pain and largest complaint of B pain in bicep region. Based on testing today, may be related to bicep tendonosis as neural tension testing and neck testing did not produce any symptoms. She does have limited ROM of neck though and elevated R first rib which is liekly contributing to her pain. Overall dec ROM d/t pain and significant weakness in BUEs. She would benefit from skilled PT to address these deficits and improve her mobility. Physical Therapy Plan Frequency and Duration Frequency of Treatment 2x/Week Duration of treatment (weeks) 12 Plan of Care Start Date 05/06/24 Plan of Care End Date 07/29/24 Therapeutic Interventions Therapeutic Interventions Home Exercise Program,Joint Mobilizations,Manual Therapy, Neuromuscular Re-education, Patient/Caregiver Education, Self-Care/Home Management,Soft Tissue Mobilization,Taping, Therapeutic Activities, Therapeutic Exercises Modalities Cold Pack/Ice Massage,Electric Stimulation,Hot Packs, Ultrasound Next Visit Focus/Plan Next Note Type Treatment Note Next Visit Plan review HEP, add chin tucks, cervical stability manual: ribs, tspine, biceps, pecs, shoulder jt mobility
--- NOTE | 2024-05-06 15:03 | PT.OPPOC ---
Physical, Occupational & Speech Therapy At [facility] Current Diagnoses Pain in right shoulder (05/06/24) Pain in left shoulder (05/06/24) Cervicalgia (05/06/24) Visit Care Team Role Provider Type SEDRICK Morejon Attending Provider Non-Staff Family Provider Primary Care Provider Referring Provider Specialty: Medical Address: [address] [place] [address], [place], [address] Email: Plan Of Care PT-OP-B Current Condition Start: 04/12/24 10:11 Freq: Status: Active Protocol: Document 05/06/24 09:54 [facility] (Rec: 05/06/24 10:49 [facility] [id number]) Current Condition History of Current Condition Onset Date few months Current Complaints B brachium, neck History of Current Condition Had xrays in shoulders and R shows OA, L shows nothing and neck xray shows degeneration. Feels like ripping in B brachiums. Fell at [employer] and that iritated L shoulder ( this was after xray). She had bruises for weeks. she was able to move it. no injury to R shoulder or neck. SHe has been doing a lot of moving for her cousin and that is increasing pain. hx of chronic LBP. She is getting massage 1x/month. denies numbness/ tingling in arms, dizziness, LIM, lightheadeness Treatment Goals Patient/Caregiver Goals improve mobility of arms PT-OP-T Assessment and Plan Start: 04/12/24 10:11 Freq: Status: Active Protocol: Document 05/06/24 09:54 [facility] (Rec: 05/06/24 10:49 [facility] [id number]) Physical Therapy Assessment Rehab Potential Rehabilitation Potential Good Evaluation Complexity Number of Personal Factors/Comorbidities 3 or More Number of Body Systems Impaired 4 or More Clinical Presentation at Evaluation Evolving Impairments Impairments Activity Tolerance,Functional Activities,Functional Mobility ,Pain,Posture,ROM,Soft Tissue Mobility,Strength Goals activity Shelter Goal (LTG) Pt will report being able to do all typical lifting and household activities w/o inc pain >2/10 LTG Duration 07/29/24 strength Short Term Goal (STG) Pt will be indep w/HEP STG Duration 06/09 Rn Occupational Health Goal (LTG) Pt will score at least 4+/5 on BUE MMT and at least 3/5 on EFT to show improved stability and strength to make daily activities easier. LTG Duration 07/29 ROM Short Term Goal (STG) Pt will have at least 40 deg cervical ext and at least 65 deg B cervical rot. STG Duration 06/09 Shelter Goal (LTG) Pt will have full shoulder AROM w/o inc pain to allow greater ease w/daily activities. Assessment Summary Assessment Pt presents w/neck pain and largest complaint of B pain in bicep region. Based on testing today, may be related to bicep tendonosis as neural tension testing and neck testing did not produce any symptoms. She does have limited ROM of neck though and elevated R first rib which is liekly contributing to her pain. Overall dec ROM d/t pain and significant weakness in BUEs. She would benefit from skilled PT to address these deficits and improve her mobility. Physical Therapy Plan Frequency and Duration Frequency of Treatment 2x/Week Duration of treatment (weeks) 12 Plan of Care Start Date 05/06/24 Plan of Care End Date 07/29/24 Therapeutic Interventions Therapeutic Interventions Home Exercise Program,Joint Mobilizations,Manual Therapy, Neuromuscular Re-education, Patient/Caregiver Education, Self-Care/Home Management,Soft Tissue Mobilization,Taping, Therapeutic Activities, Therapeutic Exercises Modalities Cold Pack/Ice Massage,Electric Stimulation,Hot Packs, Ultrasound Next Visit Focus/Plan Next Note Type Treatment Note Next Visit Plan review HEP, add chin tucks, cervical stability manual: ribs, tspine, biceps, pecs, shoulder jt mobility Plan of Care Dates Plan of Care Start Date 05/06/24 Plan of Care End Date 07/29/24 Electronically Signed by: Fernanda Novak, PT 05/06/24 [id number] If you are in agreement with this Plan of Care, please return a signed and dated copy. I have reviewed this Plan of Care and certify that the skilled therapy services above are required to meet the patient?s needs. Physician Signature Date Printed Name and Credentials Clinical Instructor Signature Printed Name and Credentials
--- NOTE | 2024-05-10 10:43 | PT.OTN ---
Current Diagnoses Pain in right shoulder (05/10/24) Pain in left shoulder (05/10/24) Cervicalgia (05/10/24) Physical Therapy Treatment Note PT-OP-A Visit Information Start: 04/12/24 10:11 Freq: Status: Active Protocol: Document 05/10/24 08:10 AB (Rec: 05/10/24 10:42 AB [id number]) Out-Patient Physical Therapy Visit Information Visit Information Visit Type Treatment Note Visit Note Access Code: [email or web address] Visit Start Time 09:47 Visit Stop Time 10:31 Visit Number 2 Number of [employer] Visits 1 PT-OP-B Current Condition Start: 04/12/24 10:11 Freq: Status: Active Protocol: Document 05/06/24 09:54 [facility] (Rec: 05/06/24 10:49 [facility] [id number]) Current Condition History of Current Condition Onset Date few months Current Complaints B brachium, neck History of Current Condition Had xrays in shoulders and R shows OA, L shows nothing and neck xray shows degeneration. Feels like ripping in B brachiums. Fell at [employer] and that iritated L shoulder ( this was after xray). She had bruises for weeks. she was able to move it. no injury to R shoulder or neck. SHe has been doing a lot of moving for her cousin and that is increasing pain. hx of chronic LBP. She is getting massage 1x/month. denies numbness/ tingling in arms, dizziness, LIM, lightheadeness Treatment Goals Patient/Caregiver Goals improve mobility of arms PT-OP-C Subjective Start: 04/12/24 10:11 Freq: Status: Active Protocol: Document 05/10/24 08:10 AB (Rec: 05/10/24 10:42 AB [id number]) OP-PT Subjective Patient Comments Patient Comments Patient reports she is stressed due to family issues, reports doing HEP except one she didn't understand how to perform. Patient reports she is not better. PT-OP-F Manual Assessment Start: 04/12/24 10:11 Freq: Status: Active Protocol: Document 05/06/24 09:54 [facility] (Rec: 05/06/24 10:49 [facility] [id number]) Manual Assessments Soft Tissue Assessment Soft Tissue Mobility Assessment tightness throughout cervical mm and tenderness along w/pec PT-OP-J Posture/Palpation/Skin Start: 04/12/24 10:11 Freq: Status: Active Protocol: Document 05/06/24 09:54 [facility] (Rec: 05/06/24 10:49 [facility] [id number]) Posture Evaluation Whitney Postural Classification System Whitney Postural Classifications Posterior/Anterior Elbow Flexion Test 1 Comments Posture Comments inc kyphosis, fwd head, L trunk rot, R 1st rib elevated, R scap >L fwd tilt, R scap abd and elevated PT-OP-K Range of Motion Start: 04/12/24 10:11 Freq: Status: Active Protocol: Document 05/06/24 09:54 [facility] (Rec: 05/06/24 10:49 [facility] [id number]) Cervical Spine Range of Motion Cervical Spine Active Degrees Flexion 68 Extension 17 Rotation Left 48 Rotation Right 42 Lateral Flexion Left 26 Lateral Flexion Right 17 Comments pain R rot and SB and ext Shoulder Goniometric Range of Motion Shoulder Right Active Flexion 116 Extension 39 Abduction 89 External Rotation at 0 degrees Abduction 51 Internal Rotation Behind Back (text) L5 Comments pain w/eccentric lowering Left Active Flexion 132 Extension 46 Abduction 104 External Rotation at 0 degrees Abduction 34 Internal Rotation Behind Back (text) t12 Comments pain w/lowering from overhead PT-OP-L Special Tests Start: 04/12/24 10:11 Freq: Status: Active Protocol: Document 05/06/24 09:54 [facility] (Rec: 05/06/24 10:49 [facility] [id number]) Special Tests Cervical Spine Special Tests Vertebral Artery Test Results positional screen neg, ausciltation of carotid and heart 4 points WNL Tectoral membrane Test Results neg Transverse Ligament Test Results neg Alar Ligament Test Results neg Traction Test Results relief Spurling's Test Test Results neg Shoulder Special Tests [place] Impingement Comments positive R neg L Neer Impingement Comments neg B Sulcus Comments neg B [place] Test Comments neg B Speed's Biceps Comments positive B Empty Can Comments neg B AC Joint Compression Comments neg B Neural Special Tests- Upper Body Median Nerve Tension Comments tension noted on L but dec w/ SB R neg R Radial Nerve Tension Comments tension noted on L but dec w/ SB R neg R Ulnar Nerve Tension Comments neg B PT-OP-M Strength Start: 04/12/24 10:11 Freq: Status: Active Protocol: Document 05/06/24 09:54 [facility] (Rec: 05/06/24 10:49 [facility] [id number]) Shoulder Strength Shoulder Manual Muscle Testing Right Flexion 3+ Fair+ Extension 3+ Fair+ Abduction (C5) 3 Fair External Rotation 3+ Fair+ Internal Rotation 3+ Fair+ Left Flexion 4- Good- Extension 3+ Fair+ Abduction (C5) 3 Fair External Rotation 3+ Fair+ Internal Rotation 4- Good- Elbow/Forearm Strength Elbow and Forearm Manual Muscle Testing Right Flexion (C6) 3+ Fair+ Extension (C7) 4 Good Pronation 4- Good- Supination 3+ Fair+ Left Flexion (C6) 3+ Fair+ Extension (C7) 4 Good Pronation 4- Good- Supination 3+ Fair+ PT-OP-Q Treatments Start: 04/12/24 10:11 Freq: Status: Active Protocol: Document 05/10/24 08:10 AB (Rec: 05/10/24 10:42 AB [id number]) Therapeutic Exercises Supine Exercises CS rotation Supine Exercise Name AROM on occipital float Side bilateral Reps/Minutes 2 min Comments verbal cues to perform slowly in pain free range supine shoulder flexion Side bilateral Reps/Minutes X5 X 10 seconds Sitting Exercises short sit/side sit to upright Sitting Exercise Name HEP seated leaning on forearm to upright Side bilateral Reps/Minutes X10 Comments verbal cues rib Side left Equipment Used level one then level 5 band Reps/Minutes X2 X 2 Comments issued level 5 band, reports doesn't feel much with level one Standing Exercises row Side bilateral Equipment Used orange Reps/Minutes 15 Comments cues scap Manual Therapy Treatment Consent Patient gave verbal consent for manual Yes treatment Soft Tissue Mobilization neck Body Location scalenes, UT, levator scap, Bilateral Mobilization Type Cross-Friction,Myofascial Release,Rolling,Sustained Pressure Intensity/Depth Superficial Body Position Sitting Comments to moderate also in sidelying bilateral shoulders Body Location pec, biceps bilateral Mobilization Type Cross-Friction,Rolling Intensity/Depth Deep Body Position Hooklying Joint Mobilizations scapula Joint bilateral Direction into depression and adduction Grade IV Body Position Sidelying Reps/Duration X10 each direction each UE Self-Care/Home Management Treatment Education Other Education Patient ed to use ice pack with a pillow case between skin and ice pack over biceps tendon at area for 10 minutes 2-3X a day PT-OP-T Assessment and Plan Start: 04/12/24 10:11 Freq: Status: Active Protocol: Document 05/10/24 08:10 AB (Rec: 05/10/24 10:42 AB [id number]) Physical Therapy Assessment Goals activity Mcc Goal (LTG) Pt will report being able to do all typical lifting and household activities w/o inc pain >2/10 LTG Duration 07/29/24 strength Short Term Goal (STG) Pt will be indep w/HEP STG Duration 06/09 Mcc Goal (LTG) Pt will score at least 4+/5 on BUE MMT and at least 3/5 on EFT to show improved stability and strength to make daily activities easier. LTG Duration 07/29 ROM Short Term Goal (STG) Pt will have at least 40 deg cervical ext and at least 65 deg B cervical rot. STG Duration 06/09 Mcc Goal (LTG) Pt will have full shoulder AROM w/o inc pain to allow greater ease w/daily activities. Assessment Summary Assessment Sehrron reports having less biceps pain end of session. CS rotation right>left conintues to be limited. Physical Therapy Plan Frequency and Duration Frequency of Treatment 2x/Week Duration of treatment (weeks) 12 Plan of Care Start Date 05/06/24 Plan of Care End Date 07/29/24 Next Visit Focus/Plan Next Note Type Treatment Note Next Visit Plan review HEP, add chin tucks, cervical stability manual: ribs, tspine, biceps, pecs, shoulder jt mobility
--- NOTE | 2024-05-13 10:44 | PT.OTN ---
Current Diagnoses Pain in right shoulder (05/13/24) Pain in left shoulder (05/13/24) Cervicalgia (05/13/24) Physical Therapy Treatment Note PT-OP-A Visit Information Start: 04/12/24 10:11 Freq: Status: Active Protocol: Document 05/13/24 08:09 AB (Rec: 05/13/24 10:43 AB [id number]) Out-Patient Physical Therapy Visit Information Visit Information Visit Type Treatment Note Visit Note Access Code: [email or web address] Visit Start Time 09:49 Visit Stop Time 10:34 Visit Number 3 Number of [employer] Visits 2 PT-OP-B Current Condition Start: 04/12/24 10:11 Freq: Status: Active Protocol: Document 05/06/24 09:54 [facility] (Rec: 05/06/24 10:49 [facility] [id number]) Current Condition History of Current Condition Onset Date few months Current Complaints B brachium, neck History of Current Condition Had xrays in shoulders and R shows OA, L shows nothing and neck xray shows degeneration. Feels like ripping in B brachiums. Fell at [employer] and that iritated L shoulder ( this was after xray). She had bruises for weeks. she was able to move it. no injury to R shoulder or neck. SHe has been doing a lot of moving for her cousin and that is increasing pain. hx of chronic LBP. She is getting massage 1x/month. denies numbness/ tingling in arms, dizziness, LIM, lightheadeness Treatment Goals Patient/Caregiver Goals improve mobility of arms PT-OP-C Subjective Start: 04/12/24 10:11 Freq: Status: Active Protocol: Document 05/13/24 08:09 AB (Rec: 05/13/24 10:43 AB [id number]) OP-PT Subjective Patient Comments Patient Comments AROM left shoulder flexion 145 deg, right 152 deg start of session PT-OP-F Manual Assessment Start: 04/12/24 10:11 Freq: Status: Active Protocol: Document 05/06/24 09:54 [facility] (Rec: 05/06/24 10:49 [facility] [id number]) Manual Assessments Soft Tissue Assessment Soft Tissue Mobility Assessment tightness throughout cervical mm and tenderness along w/pec PT-OP-J Posture/Palpation/Skin Start: 04/12/24 10:11 Freq: Status: Active Protocol: Document 05/06/24 09:54 [facility] (Rec: 05/06/24 10:49 [facility] [id number]) Posture Evaluation Whitney Postural Classification System Whitney Postural Classifications Posterior/Anterior Elbow Flexion Test 1 Comments Posture Comments inc kyphosis, fwd head, L trunk rot, R 1st rib elevated, R scap >L fwd tilt, R scap abd and elevated PT-OP-K Range of Motion Start: 04/12/24 10:11 Freq: Status: Active Protocol: Document 05/06/24 09:54 [facility] (Rec: 05/06/24 10:49 [facility] [id number]) Cervical Spine Range of Motion Cervical Spine Active Degrees Flexion 68 Extension 17 Rotation Left 48 Rotation Right 42 Lateral Flexion Left 26 Lateral Flexion Right 17 Comments pain R rot and SB and ext Shoulder Goniometric Range of Motion Shoulder Right Active Flexion 116 Extension 39 Abduction 89 External Rotation at 0 degrees Abduction 51 Internal Rotation Behind Back (text) L5 Comments pain w/eccentric lowering Left Active Flexion 132 Extension 46 Abduction 104 External Rotation at 0 degrees Abduction 34 Internal Rotation Behind Back (text) t12 Comments pain w/lowering from overhead PT-OP-L Special Tests Start: 04/12/24 10:11 Freq: Status: Active Protocol: Document 05/06/24 09:54 [facility] (Rec: 05/06/24 10:49 [facility] [id number]) Special Tests Cervical Spine Special Tests Vertebral Artery Test Results positional screen neg, ausciltation of carotid and heart 4 points WNL Tectoral membrane Test Results neg Transverse Ligament Test Results neg Alar Ligament Test Results neg Traction Test Results relief Spurling's Test Test Results neg Shoulder Special Tests [place] Impingement Comments positive R neg L Neer Impingement Comments neg B Sulcus Comments neg B [place] Test Comments neg B Speed's Biceps Comments positive B Empty Can Comments neg B AC Joint Compression Comments neg B Neural Special Tests- Upper Body Median Nerve Tension Comments tension noted on L but dec w/ SB R neg R Radial Nerve Tension Comments tension noted on L but dec w/ SB R neg R Ulnar Nerve Tension Comments neg B PT-OP-M Strength Start: 04/12/24 10:11 Freq: Status: Active Protocol: Document 05/06/24 09:54 [facility] (Rec: 05/06/24 10:49 [facility] [id number]) Shoulder Strength Shoulder Manual Muscle Testing Right Flexion 3+ Fair+ Extension 3+ Fair+ Abduction (C5) 3 Fair External Rotation 3+ Fair+ Internal Rotation 3+ Fair+ Left Flexion 4- Good- Extension 3+ Fair+ Abduction (C5) 3 Fair External Rotation 3+ Fair+ Internal Rotation 4- Good- Elbow/Forearm Strength Elbow and Forearm Manual Muscle Testing Right Flexion (C6) 3+ Fair+ Extension (C7) 4 Good Pronation 4- Good- Supination 3+ Fair+ Left Flexion (C6) 3+ Fair+ Extension (C7) 4 Good Pronation 4- Good- Supination 3+ Fair+ PT-OP-Q Treatments Start: 04/12/24 10:11 Freq: Status: Active Protocol: Document 05/13/24 08:09 AB (Rec: 05/13/24 10:43 AB [id number]) Therapeutic Exercises Supine Exercises deep neck flexor lift Supine Exercise Name HEP Reps/Minutes 5 X Comments initiated with tactile cues chin tuck Supine Exercise Name HEP Reps/Minutes X5 with intiated with manual cues Comments X5 CS rotation Supine Exercise Name AROM on occipital float Side bilateral Reps/Minutes 2 min Comments verbal cues to perform slowly in pain free range supine shoulder flexion Side bilateral Reps/Minutes X2 without band X 2 with level one band Comments Patient reports shoulder pain Other Exercises CS rotation Other Exercise Name in counter plank position HEP Side bilateral Reps/Minutes X10 Comments Verbal cues to perform slowly in pain free range. Manual Therapy Treatment Soft Tissue Mobilization neck Body Location scalenes, UT, levator scap, Bilateral Mobilization Type Cross-Friction,Myofascial Release,Rolling,Sustained Pressure Intensity/Depth Superficial Body Position Sitting Comments to moderate also in sidelying bilateral shoulders Body Location pec, biceps bilateral Mobilization Type Cross-Friction,Rolling Intensity/Depth Deep Body Position Hooklying Joint Mobilizations scapula Joint bilateral Direction into depression and adduction Grade IV Body Position Sidelying Reps/Duration X10 each direction each UE PT-OP-T Assessment and Plan Start: 04/12/24 10:11 Freq: Status: Active Protocol: Document 05/13/24 08:09 AB (Rec: 05/13/24 10:43 AB [id number]) Physical Therapy Assessment Goals activity Residential Goal (LTG) Pt will report being able to do all typical lifting and household activities w/o inc pain >2/10 LTG Duration 07/29/24 strength Short Term Goal (STG) Pt will be indep w/HEP STG Duration 06/09 Residential Goal (LTG) Pt will score at least 4+/5 on BUE MMT and at least 3/5 on EFT to show improved stability and strength to make daily activities easier. LTG Duration 07/29 ROM Short Term Goal (STG) Pt will have at least 40 deg cervical ext and at least 65 deg B cervical rot. STG Duration 06/09 Flour Worker Goal (LTG) Pt will have full shoulder AROM w/o inc pain to allow greater ease w/daily activities. Assessment Summary Assessment AROM left shoulder flexion 151 deg end of session. Patient reports feeling pretty good end of session. Level 5 band written on for chin tuck only as patient reports performing all ex with level 5 band, commenting not sure which band to use. Physical Therapy Plan Frequency and Duration Frequency of Treatment 2x/Week Duration of treatment (weeks) 12 Plan of Care Start Date 05/06/24 Plan of Care End Date 07/29/24 Next Visit Focus/Plan Next Note Type Treatment Note Next Visit Plan review HEP, cervical stability manual: ribs, tspine, biceps, pecs, shoulder jt mobility
--- NOTE | 2024-05-20 12:15 | PT.OTN ---
Current Diagnoses Pain in right shoulder (05/20/24) Pain in left shoulder (05/20/24) Cervicalgia (05/20/24) Physical Therapy Treatment Note PT-OP-A Visit Information Start: 04/12/24 10:11 Freq: Status: Active Protocol: Document 05/20/24 11:35 MB (Rec: 05/20/24 12:11 MB [id number]) Out-Patient Physical Therapy Visit Information Visit Information Visit Type Treatment Note Visit Note Access Code: [email or web address] Visit Start Time 11:35 Visit Stop Time 12:15 Visit Number 4 Number of OUTREACH LIAISON Visits 0 PT-OP-B Current Condition Start: 04/12/24 10:11 Freq: Status: Active Protocol: Document 05/06/24 09:54 [facility] (Rec: 05/06/24 10:49 [facility] [id number]) Current Condition History of Current Condition Onset Date few months Current Complaints B brachium, neck History of Current Condition Had xrays in shoulders and R shows OA, L shows nothing and neck xray shows degeneration. Feels like ripping in B brachiums. Fell at [facility] and that iritated L shoulder ( this was after xray). She had bruises for weeks. she was able to move it. no injury to R shoulder or neck. SHe has been doing a lot of moving for her cousin and that is increasing pain. hx of chronic LBP. She is getting massage 1x/month. denies numbness/ tingling in arms, dizziness, LIM, lightheadeness Treatment Goals Patient/Caregiver Goals improve mobility of arms PT-OP-C Subjective Start: 04/12/24 10:11 Freq: Status: Active Protocol: Document 05/20/24 11:35 MB (Rec: 05/20/24 12:11 MB [id number]) OP-PT Subjective Patient Comments Patient Comments Pt has been moving a family member up to [facility]. Her shoulder is feeling a little better. PT-OP-F Manual Assessment Start: 04/12/24 10:11 Freq: Status: Active Protocol: Document 05/06/24 09:54 [facility] (Rec: 05/06/24 10:49 [facility] [id number]) Manual Assessments Soft Tissue Assessment Soft Tissue Mobility Assessment tightness throughout cervical mm and tenderness along w/pec PT-OP-J Posture/Palpation/Skin Start: 04/12/24 10:11 Freq: Status: Active Protocol: Document 05/06/24 09:54 [facility] (Rec: 05/06/24 10:49 [facility] [id number]) Posture Evaluation Whitney Postural Classification System Whitney Postural Classifications Posterior/Anterior Elbow Flexion Test 1 Comments Posture Comments inc kyphosis, fwd head, L trunk rot, R 1st rib elevated, R scap >L fwd tilt, R scap abd and elevated PT-OP-K Range of Motion Start: 04/12/24 10:11 Freq: Status: Active Protocol: Document 05/06/24 09:54 [facility] (Rec: 05/06/24 10:49 [facility] [id number]) Cervical Spine Range of Motion Cervical Spine Active Degrees Flexion 68 Extension 17 Rotation Left 48 Rotation Right 42 Lateral Flexion Left 26 Lateral Flexion Right 17 Comments pain R rot and SB and ext Shoulder Goniometric Range of Motion Shoulder Right Active Flexion 116 Extension 39 Abduction 89 External Rotation at 0 degrees Abduction 51 Internal Rotation Behind Back (text) L5 Comments pain w/eccentric lowering Left Active Flexion 132 Extension 46 Abduction 104 External Rotation at 0 degrees Abduction 34 Internal Rotation Behind Back (text) t12 Comments pain w/lowering from overhead PT-OP-L Special Tests Start: 04/12/24 10:11 Freq: Status: Active Protocol: Document 05/06/24 09:54 [facility] (Rec: 05/06/24 10:49 [facility] [id number]) Special Tests Cervical Spine Special Tests Vertebral Artery Test Results positional screen neg, ausciltation of carotid and heart 4 points WNL Tectoral membrane Test Results neg Transverse Ligament Test Results neg Alar Ligament Test Results neg Traction Test Results relief Spurling's Test Test Results neg Shoulder Special Tests [place] Impingement Comments positive R neg L Neer Impingement Comments neg B Sulcus Comments neg B [place] Test Comments neg B Speed's Biceps Comments positive B Empty Can Comments neg B AC Joint Compression Comments neg B Neural Special Tests- Upper Body Median Nerve Tension Comments tension noted on L but dec w/ SB R neg R Radial Nerve Tension Comments tension noted on L but dec w/ SB R neg R Ulnar Nerve Tension Comments neg B PT-OP-M Strength Start: 04/12/24 10:11 Freq: Status: Active Protocol: Document 05/06/24 09:54 [facility] (Rec: 05/06/24 10:49 [facility] [id number]) Shoulder Strength Shoulder Manual Muscle Testing Right Flexion 3+ Fair+ Extension 3+ Fair+ Abduction (C5) 3 Fair External Rotation 3+ Fair+ Internal Rotation 3+ Fair+ Left Flexion 4- Good- Extension 3+ Fair+ Abduction (C5) 3 Fair External Rotation 3+ Fair+ Internal Rotation 4- Good- Elbow/Forearm Strength Elbow and Forearm Manual Muscle Testing Right Flexion (C6) 3+ Fair+ Extension (C7) 4 Good Pronation 4- Good- Supination 3+ Fair+ Left Flexion (C6) 3+ Fair+ Extension (C7) 4 Good Pronation 4- Good- Supination 3+ Fair+ PT-OP-Q Treatments Start: 04/12/24 10:11 Freq: Status: Active Protocol: Document 05/20/24 11:35 MB (Rec: 05/20/24 12:11 [id number]) Manual Therapy Treatment Consent Patient gave verbal consent for manual Yes treatment Other Other Manual Treatments Pt prone: PA thoracic and rib mobs and rib recoil, STM B upper traps, levator, infraspinatus and cervical paraspinals and grade III PA mobs cervical spine, more tension left proximal attachment near spine upper traps and paraspinals; TrP left infraspinatus, right upper traps, left cervical paraspinals; left first rib isometric PT-OP-T Assessment and Plan Start: 04/12/24 10:11 Freq: Status: Active Protocol: Document 05/20/24 11:35 MB (Rec: 05/20/24 12:11 [id number]) Physical Therapy Assessment Goals activity [facility] Goal (LTG) Pt will report being able to do all typical lifting and household activities w/o inc pain >2/10 LTG Duration 07/29/24 strength Short Term Goal (STG) Pt will be indep w/HEP STG Duration 06/09 [facility] Goal (LTG) Pt will score at least 4+/5 on BUE MMT and at least 3/5 on EFT to show improved stability and strength to make daily activities easier. LTG Duration 07/29 ROM Short Term Goal (STG) Pt will have at least 40 deg cervical ext and at least 65 deg B cervical rot. STG Duration 06/09 [facility] Goal (LTG) Pt will have full shoulder AROM w/o inc pain to allow greater ease w/daily activities. Assessment Summary Assessment Pt tolerates manual work well. Recommend thoracic mobility work and exercises in the future. Physical Therapy Plan Frequency and Duration Frequency of Treatment 2x/Week Duration of treatment (weeks) 12 Plan of Care Start Date 05/06/24 Plan of Care End Date 07/29/24 Next Visit Focus/Plan Next Note Type Treatment Note Next Visit Plan Consider thoracic mobility work and exercises such as open boook Con't per plan: review HEP, cervical stability manual: ribs, tspine, biceps, pecs, shoulder jt mobility
--- NOTE | 2024-05-25 15:38 | PT.OTN ---
Current Diagnoses Pain in right shoulder (05/25/24) Pain in left shoulder (05/25/24) Cervicalgia (05/25/24) Physical Therapy Treatment Note PT-OP-A Visit Information Start: 04/12/24 10:11 Freq: Status: Active Protocol: Document 05/25/24 13:43 TS (Rec: 05/25/24 15:38 TS [id number]) Out-Patient Physical Therapy Visit Information Visit Information Visit Type Treatment Note Visit Note Access Code: [email or web address] Visit Start Time 13:45 Visit Stop Time 14:30 Visit Number 5 Number of MARKETING AND PROMOTIONS MANAGER Visits 1 PT-OP-B Current Condition Start: 04/12/24 10:11 Freq: Status: Active Protocol: Document 05/06/24 09:54 [facility] (Rec: 05/06/24 10:49 [facility] [id number]) Current Condition History of Current Condition Onset Date few months Current Complaints B brachium, neck History of Current Condition Had xrays in shoulders and R shows OA, L shows nothing and neck xray shows degeneration. Feels like ripping in B brachiums. Fell at [facility] and that iritated L shoulder ( this was after xray). She had bruises for weeks. she was able to move it. no injury to R shoulder or neck. SHe has been doing a lot of moving for her cousin and that is increasing pain. hx of chronic LBP. She is getting massage 1x/month. denies numbness/ tingling in arms, dizziness, LIM, lightheadeness Treatment Goals Patient/Caregiver Goals improve mobility of arms PT-OP-C Subjective Start: 04/12/24 10:11 Freq: Status: Active Protocol: Document 05/25/24 13:43 TS (Rec: 05/25/24 15:38 TS [id number]) OP-PT Subjective Patient Comments Patient Comments Pt reports shoulders are feeling better but she is having pain on the R side of her neck. She is doing her HEP at home. PT-OP-F Manual Assessment Start: 04/12/24 10:11 Freq: Status: Active Protocol: Document 05/06/24 09:54 [facility] (Rec: 05/06/24 10:49 [facility] [id number]) Manual Assessments Soft Tissue Assessment Soft Tissue Mobility Assessment tightness throughout cervical mm and tenderness along w/pec PT-OP-J Posture/Palpation/Skin Start: 04/12/24 10:11 Freq: Status: Active Protocol: Document 05/06/24 09:54 [facility] (Rec: 05/06/24 10:49 [facility] [id number]) Posture Evaluation Whitney Postural Classification System Whitney Postural Classifications Posterior/Anterior Elbow Flexion Test 1 Comments Posture Comments inc kyphosis, fwd head, L trunk rot, R 1st rib elevated, R scap >L fwd tilt, R scap abd and elevated PT-OP-K Range of Motion Start: 04/12/24 10:11 Freq: Status: Active Protocol: Document 05/06/24 09:54 [facility] (Rec: 05/06/24 10:49 [facility] [id number]) Cervical Spine Range of Motion Cervical Spine Active Degrees Flexion 68 Extension 17 Rotation Left 48 Rotation Right 42 Lateral Flexion Left 26 Lateral Flexion Right 17 Comments pain R rot and SB and ext Shoulder Goniometric Range of Motion Shoulder Right Active Flexion 116 Extension 39 Abduction 89 External Rotation at 0 degrees Abduction 51 Internal Rotation Behind Back (text) L5 Comments pain w/eccentric lowering Left Active Flexion 132 Extension 46 Abduction 104 External Rotation at 0 degrees Abduction 34 Internal Rotation Behind Back (text) t12 Comments pain w/lowering from overhead PT-OP-L Special Tests Start: 04/12/24 10:11 Freq: Status: Active Protocol: Document 05/06/24 09:54 [facility] (Rec: 05/06/24 10:49 [facility] [id number]) Special Tests Cervical Spine Special Tests Vertebral Artery Test Results positional screen neg, ausciltation of carotid and heart 4 points WNL Tectoral membrane Test Results neg Transverse Ligament Test Results neg Alar Ligament Test Results neg Traction Test Results relief Spurling's Test Test Results neg Shoulder Special Tests [place] Blake Impingement Comments positive R neg L Neer Impingement Comments neg B Sulcus Comments neg B [place] Test Comments neg B Speed's Biceps Comments positive B Empty [place] Comments neg B AC Joint Compression Comments neg B Neural Special Tests- Upper Body Median Nerve Tension Comments tension noted on L but dec w/ SB R neg R Radial Nerve Tension Comments tension noted on L but dec w/ SB R neg R Ulnar Nerve Tension Comments neg B PT-OP-M Strength Start: 04/12/24 10:11 Freq: Status: Active Protocol: Document 05/06/24 09:54 [facility] (Rec: 05/06/24 10:49 [facility] [id number]) Shoulder Strength Shoulder Manual Muscle Testing Right Flexion 3+ Fair+ Extension 3+ Fair+ Abduction (C5) 3 Fair External Rotation 3+ Fair+ Internal Rotation 3+ Fair+ Left Flexion 4- Good- Extension 3+ Fair+ Abduction (C5) 3 Fair External Rotation 3+ Fair+ Internal Rotation 4- Good- Elbow/Forearm Strength Elbow and Forearm Manual Muscle Testing Right Flexion (C6) 3+ Fair+ Extension (C7) 4 Good Pronation 4- Good- Supination 3+ Fair+ Left Flexion (C6) 3+ Fair+ Extension (C7) 4 Good Pronation 4- Good- Supination 3+ Fair+ PT-OP-Q Treatments Start: 04/12/24 10:11 Freq: Status: Active Protocol: Document 05/25/24 13:43 TS (Rec: 05/25/24 15:38 TS [id number]) Therapeutic Exercises Supine Exercises deep neck flexor lift Supine Exercise Name HEP Reps/Minutes 5 X Comments initiated with tactile cues chin tuck Supine Exercise Name HEP Reps/Minutes X5 intiated with verbal cues CS rotation Supine Exercise Name AROM on occipital float Side bilateral Reps/Minutes 3 min Comments verbal cues to perform slowly in pain free range Sidelying Exercises Open book Side bilateral Reps/Minutes x10 Comments Greater rotation to L than R. Manual Therapy Treatment Soft Tissue Mobilization neck Body Location scalenes, UT, levator scap, SCM Bilateral Mobilization Type Cross-Friction,Myofascial Release,Rolling,Sustained Pressure Intensity/Depth Superficial Body Position Supine bilateral shoulders Body Location pec, biceps bilateral Mobilization Type Cross-Friction,Rolling Intensity/Depth Deep Body Position Hooklying PT-OP-T Assessment and Plan Start: 04/12/24 10:11 Freq: Status: Active Protocol: Document 05/25/24 13:43 TS (Rec: 05/25/24 15:38 TS [id number]) Physical Therapy Assessment Goals activity [facility] Goal (LTG) Pt will report being able to do all typical lifting and household activities w/o inc pain >2/10 LTG Duration 07/29/24 strength Short Term Goal (STG) Pt will be indep w/HEP STG Duration 06/09 [facility] Goal (LTG) Pt will score at least 4+/5 on BUE MMT and at least 3/5 on EFT to show improved stability and strength to make daily activities easier. LTG Duration 07/29 ROM Short Term Goal (STG) Pt will have at least 40 deg cervical ext and at least 65 deg B cervical rot. STG Duration 06/09 Skilled Nursing Goal (LTG) Pt will have full shoulder AROM w/o inc pain to allow greater ease w/daily activities. Assessment Summary Assessment Pt continues to be limited in CS rotation. Initiatied open book for thoracic rotation, pt reported a good stretch. She reported shoulders are improving. Had some discomfort in neck after manual. Physical Therapy Plan Next Visit Focus/Plan Next Note Type Treatment Note Next Visit Plan Continue manual, open book and cs rotation. Consider neck stretches(UT, levator, scalenes). Con't per plan: review HEP, cervical stability manual: ribs, tspine, biceps, pecs, shoulder jt mobility
--- NOTE | 2024-06-07 18:12 | PT.OTN ---
Current Diagnoses Pain in right shoulder (06/07/24) Pain in left shoulder (06/07/24) Cervicalgia (06/07/24) Physical Therapy Treatment Note PT-OP-A Visit Information Start: 04/12/24 10:11 Freq: Status: Active Protocol: Document 06/07/24 16:58 [facility] (Rec: 06/07/24 18:12 [facility] [id number]) Out-Patient Physical Therapy Visit Information Visit Information Visit Type Progress Note Visit Note Access Code: [email or web address] Visit Start Time 17:06 Visit Stop Time 17:46 Visit Number 6 Number of CONFERENCE PRODUCER Visits 0 PT-OP-B Current Condition Start: 04/12/24 10:11 Freq: Status: Active Protocol: Document 05/06/24 09:54 [facility] (Rec: 05/06/24 10:49 [facility] [id number]) Current Condition History of Current Condition Onset Date few months Current Complaints B brachium, neck History of Current Condition Had xrays in shoulders and R shows OA, L shows nothing and neck xray shows degeneration. Feels like ripping in B brachiums. Fell at [facility] and that iritated L shoulder ( this was after xray). She had bruises for weeks. she was able to move it. no injury to R shoulder or neck. SHe has been doing a lot of moving for her cousin and that is increasing pain. hx of chronic LBP. She is getting massage 1x/month. denies numbness/ tingling in arms, dizziness, LIM, lightheadeness Treatment Goals Patient/Caregiver Goals improve mobility of arms PT-OP-C Subjective Start: 04/12/24 10:11 Freq: Status: Active Protocol: Document 06/07/24 16:58 [facility] (Rec: 06/07/24 18:12 [facility] [id number]) OP-PT Subjective Patient Comments Patient Comments So much better after TpR and was moving family last week and neck was tight. Arms are not as bad as they were. Patient Reported Progress Improving PT-OP-F Manual Assessment Start: 04/12/24 10:11 Freq: Status: Active Protocol: Document 05/06/24 09:54 [facility] (Rec: 05/06/24 10:49 [facility] [id number]) Manual Assessments Soft Tissue Assessment Soft Tissue Mobility Assessment tightness throughout cervical mm and tenderness along w/pec PT-OP-J Posture/Palpation/Skin Start: 04/12/24 10:11 Freq: Status: Active Protocol: Document 05/06/24 09:54 [facility] (Rec: 05/06/24 10:49 [facility] [id number]) Posture Evaluation [facility] Postural Classification System Whitney Postural Classifications Posterior/Anterior Elbow Flexion Test 1 Comments Posture Comments inc kyphosis, fwd head, L trunk rot, R 1st rib elevated, R scap >L fwd tilt, R scap abd and elevated PT-OP-K Range of Motion Start: 04/12/24 10:11 Freq: Status: Active Protocol: Document 06/07/24 16:58 [facility] (Rec: 06/07/24 18:12 [facility] [id number]) Cervical Spine Range of Motion Cervical Spine Active Degrees Flexion 60 Extension 30 Rotation Left 48 Rotation Right 50 Lateral Flexion Left 27 Lateral Flexion Right 25 Comments pain R rot and SB and ext Shoulder Goniometric Range of Motion Shoulder Right Active Flexion 143 Extension 49 Abduction 110 External Rotation at 0 degrees Abduction 51 Internal Rotation Behind Back (text) L2 Comments pain w/eccentric lowering Left Active Flexion 148 Extension 60 Abduction 140 External Rotation at 0 degrees Abduction 51 Internal Rotation Behind Back (text) T11 Comments pain w/lowering from overhead PT-OP-L Special Tests Start: 04/12/24 10:11 Freq: Status: Active Protocol: Document 05/06/24 09:54 [facility] (Rec: 05/06/24 10:49 [facility] [id number]) Special Tests Cervical Spine Special Tests Vertebral Artery Test Results positional screen neg, ausciltation of carotid and heart 4 points WNL Tectoral membrane Test Results neg Transverse Ligament Test Results neg Alar Ligament Test Results neg Traction Test Results relief Spurling's Test Test Results neg Shoulder Special Tests [place] Impingement Comments positive R neg L Neer Impingement Comments neg B Sulcus Comments neg B [place] Test Comments neg B Speed's Biceps Comments positive B Empty [place] Comments neg B AC Joint Compression Comments neg B Neural Special Tests- Upper Body Median Nerve Tension Comments tension noted on L but dec w/ SB R neg R Radial Nerve Tension Comments tension noted on L but dec w/ SB R neg R Ulnar Nerve Tension Comments neg B PT-OP-M Strength Start: 04/12/24 10:11 Freq: Status: Active Protocol: Document 06/07/24 16:58 [facility] (Rec: 06/07/24 18:12 [facility] [id number]) Shoulder Strength Shoulder Manual Muscle Testing Right Flexion 4- Good- Extension 3+ Fair+ Abduction (C5) 3+ Fair+ External Rotation 4 Good Internal Rotation 4+ Good+ Left Flexion 4 Good Extension 4 Good Abduction (C5) 3+ Fair+ External Rotation 4 Good Internal Rotation 4+ Good+ Elbow/Forearm Strength Elbow and Forearm Manual Muscle Testing Right Flexion (C6) 4 Good Extension (C7) 4 Good Pronation 4+ Good+ Supination 4 Good Left Flexion (C6) 4 Good Extension (C7) 4 Good Pronation 4+ Good+ Supination 4+ Good+ PT-OP-Q Treatments Start: 04/12/24 10:11 Freq: Status: Active Protocol: Document 06/07/24 16:58 [facility] (Rec: 06/07/24 18:12 [facility] [id number]) Therapeutic Exercises Standing Exercises flex Standing Exercise Name Habd to flex Side bilateral Equipment Used L1 Reps/Minutes 15 Comments cues R scap no elevation row Side bilateral Equipment Used L3 Reps/Minutes 15 Comments cues scap ER Side bilateral Equipment Used L1 Reps/Minutes 15 Comments cues slow eccentric Other Exercises AROM Other Exercise Name shoulders and cervical Side bilateral isometrics Other Exercise Name UE MMT Side bilateral Manual Therapy Treatment Soft Tissue Mobilization neck Body Location scalenes, UT, levator scap, SCM Bilateral Mobilization Type Cross-Friction,Myofascial Release,Rolling,Sustained Pressure Intensity/Depth Moderate Body Position Supine bilateral shoulders Body Location R pec Mobilization Type Rolling,Sustained Pressure Comments w/rot Joint Mobilizations GH Joint R Direction post AC Comments ant clavicle R c/r ribs Comments R UPA w/rotation ribs 1-2, caudal ribs 1-3 c/r PT-OP-T Assessment and Plan Start: 04/12/24 10:11 Freq: Status: Active Protocol: Document 06/07/24 16:58 [facility] (Rec: 06/07/24 18:12 [facility] [id number]) Physical Therapy Assessment Goals activity Half-Way Goal (LTG) Pt will report being able to do all typical lifting and household activities w/o inc pain >2/10 06/07-7/10 w/moving family LTG Duration 07/29/24 strength Short Term Goal (STG) Pt will be indep w/HEP 06/07-was until last week where was helping move family, does require cues STG Duration 06/09 Half-Way Goal (LTG) Pt will score at least 4+/5 on BUE MMT and at least 3/5 on EFT to show improved stability and strength to make daily activities easier. 06/07-improving LTG Duration 07/29 ROM Short Term Goal (STG) Pt will have at least 40 deg cervical ext and at least 65 deg B cervical rot. 06/07-much improved STG Duration 06/09 Half-Way Goal (LTG) Pt will have full shoulder AROM w/o inc pain to allow greater ease w/daily activities. Assessment Summary Assessment Pt is making good progress w/ PT with ROM, strength and overall pain. She cont to be very weak and did have improved ROM of shoulder and neck SB after manual on R side . She would benefit from cont PT to address her cont deficits. Physical Therapy Plan Frequency and Duration Frequency of Treatment 2x/Week Duration of treatment (weeks) 12 Plan of Care Start Date 05/06/24 Plan of Care End Date 07/29/24 Therapeutic Interventions Therapeutic Interventions Home Exercise Program,Joint Mobilizations,Manual Therapy, Neuromuscular Re-education, Patient/Caregiver Education, Self-Care/Home Management,Soft Tissue Mobilization,Taping, Therapeutic Activities, Therapeutic Exercises Modalities Cold Pack/Ice Massage,Electric Stimulation,Hot Packs, Ultrasound Next Visit Focus/Plan Next Note Type Treatment Note Next Visit Plan review open book and suboccipital float, Consider adding neck stretches(UT, levator, scalenes). manual: ribs, tspine, biceps, pecs, shoulder jt mobility
--- NOTE | 2024-06-10 16:36 | PT.OTN ---
Current Diagnoses Pain in right shoulder (06/10/24) Pain in left shoulder (06/10/24) Cervicalgia (06/10/24) Physical Therapy Treatment Note PT-OP-A Visit Information Start: 04/12/24 10:11 Freq: Status: Active Protocol: Document 06/10/24 12:00 AB (Rec: 06/10/24 16:35 AB [id number]) Out-Patient Physical Therapy Visit Information Visit Information Visit Type Treatment Note Visit Note Access Code: [email or web address] Visit Start Time 13:48 Visit Stop Time 14:32 Visit Number 7 Number of COOKER CLEANER Visits 1 PT-OP-B Current Condition Start: 04/12/24 10:11 Freq: Status: Active Protocol: Document 05/06/24 09:54 [facility] (Rec: 05/06/24 10:49 [facility] [id number]) Current Condition History of Current Condition Onset Date few months Current Complaints B brachium, neck History of Current Condition Had xrays in shoulders and R shows OA, L shows nothing and neck xray shows degeneration. Feels like ripping in B brachiums. Fell at [employer] and that iritated L shoulder ( this was after xray). She had bruises for weeks. she was able to move it. no injury to R shoulder or neck. SHe has been doing a lot of moving for her cousin and that is increasing pain. hx of chronic LBP. She is getting massage 1x/month. denies numbness/ tingling in arms, dizziness, LIM, lightheadeness Treatment Goals Patient/Caregiver Goals improve mobility of arms PT-OP-C Subjective Start: 04/12/24 10:11 Freq: Status: Active Protocol: Document 06/10/24 12:00 AB (Rec: 06/10/24 16:35 AB [id number]) OP-PT Subjective Patient Comments Patient Comments Patient reports she is worse left arm feels ripped again. Patient attributes to helping family move. AROM left shoulder flexion 135 deg start of session. PT-OP-F Manual Assessment Start: 04/12/24 10:11 Freq: Status: Active Protocol: Document 05/06/24 09:54 [facility] (Rec: 05/06/24 10:49 [facility] [id number]) Manual Assessments Soft Tissue Assessment Soft Tissue Mobility Assessment tightness throughout cervical mm and tenderness along w/pec PT-OP-J Posture/Palpation/Skin Start: 04/12/24 10:11 Freq: Status: Active Protocol: Document 05/06/24 09:54 [facility] (Rec: 05/06/24 10:49 [facility] [id number]) Posture Evaluation Whitney Postural Classification System Whitney Postural Classifications Posterior/Anterior Elbow Flexion Test 1 Comments Posture Comments inc kyphosis, fwd head, L trunk rot, R 1st rib elevated, R scap >L fwd tilt, R scap abd and elevated PT-OP-K Range of Motion Start: 04/12/24 10:11 Freq: Status: Active Protocol: Document 06/07/24 16:58 [facility] (Rec: 06/07/24 18:12 [facility] [id number]) Cervical Spine Range of Motion Cervical Spine Active Degrees Flexion 60 Extension 30 Rotation Left 48 Rotation Right 50 Lateral Flexion Left 27 Lateral Flexion Right 25 Comments pain R rot and SB and ext Shoulder Goniometric Range of Motion Shoulder Right Active Flexion 143 Extension 49 Abduction 110 External Rotation at 0 degrees Abduction 51 Internal Rotation Behind Back (text) L2 Comments pain w/eccentric lowering Left Active Flexion 148 Extension 60 Abduction 140 External Rotation at 0 degrees Abduction 51 Internal Rotation Behind Back (text) T11 Comments pain w/lowering from overhead PT-OP-L Special Tests Start: 04/12/24 10:11 Freq: Status: Active Protocol: Document 05/06/24 09:54 [facility] (Rec: 05/06/24 10:49 [facility] [id number]) Special Tests Cervical Spine Special Tests Vertebral Artery Test Results positional screen neg, ausciltation of carotid and heart 4 points WNL Tectoral membrane Test Results neg Transverse Ligament Test Results neg Alar Ligament Test Results neg Traction Test Results relief Spurling's Test Test Results neg Shoulder Special Tests [place] Impingement Comments positive R neg L Neer Impingement Comments neg B Sulcus Comments neg B [place] Test Comments neg B Speed's Biceps Comments positive B Empty Can Comments neg B AC Joint Compression Comments neg B Neural Special Tests- Upper Body Median Nerve Tension Comments tension noted on L but dec w/ SB R neg R Radial Nerve Tension Comments tension noted on L but dec w/ SB R neg R Ulnar Nerve Tension Comments neg B PT-OP-M Strength Start: 04/12/24 10:11 Freq: Status: Active Protocol: Document 06/07/24 16:58 [facility] (Rec: 06/07/24 18:12 [facility] [id number]) Shoulder Strength Shoulder Manual Muscle Testing Right Flexion 4- Good- Extension 3+ Fair+ Abduction (C5) 3+ Fair+ External Rotation 4 Good Internal Rotation 4+ Good+ Left Flexion 4 Good Extension 4 Good Abduction (C5) 3+ Fair+ External Rotation 4 Good Internal Rotation 4+ Good+ Elbow/Forearm Strength Elbow and Forearm Manual Muscle Testing Right Flexion (C6) 4 Good Extension (C7) 4 Good Pronation 4+ Good+ Supination 4 Good Left Flexion (C6) 4 Good Extension (C7) 4 Good Pronation 4+ Good+ Supination 4+ Good+ PT-OP-Q Treatments Start: 04/12/24 10:11 Freq: Status: Active Protocol: Document 06/10/24 12:00 AB (Rec: 06/10/24 16:35 AB [id number]) Therapeutic Exercises Supine Exercises CS rotation Supine Exercise Name AROM on occipital float Side bilateral Reps/Minutes 3 min Comments verbal cues to perform slowly in pain free range supine shoulder flexion Side bilateral Reps/Minutes 20 sec hold X1 Sitting Exercises UT stretch Side bilateral Reps/Minutes 60 sec X 2 each side scalene stretch Sitting Exercise Name seated holding chair Side bilateral Reps/Minutes 30 sec then 60 sec each side Comments verbal and visual cues Manual Therapy Treatment Consent Patient gave verbal consent for manual Yes treatment Soft Tissue Mobilization neck Body Location scalenes, UT, levator scap, SCM Bilateral Mobilization Type Cross-Friction,Myofascial Release,Rolling,Sustained Pressure Intensity/Depth Moderate Comments to superficial bilateral shoulders Body Location B pec Mobilization Type Rolling,Sustained Pressure Joint Mobilizations GH Joint L AP and inf Grade IV Reps/Duration X10 X 3 AC Direction inf Reps/Duration X10 ribs Joint 1 st rib Direction inf Reps/Duration X10 PT-OP-T Assessment and Plan Start: 04/12/24 10:11 Freq: Status: Active Protocol: Document 06/10/24 12:00 AB (Rec: 06/10/24 16:35 AB [id number]) Physical Therapy Assessment Goals activity [employer] Goal (LTG) Pt will report being able to do all typical lifting and household activities w/o inc pain >2/10 06/07-7/ w/moving family LTG Duration 07/29/24 strength Short Term Goal (STG) Pt will be indep w/HEP 06/07-was until last week where was helping move family, does require cues STG Duration 06/09 Alf Goal (LTG) Pt will score at least 4+/5 on BUE MMT and at least 3/5 on EFT to show improved stability and strength to make daily activities easier. 06/07-improving LTG Duration 07/29 ROM Short Term Goal (STG) Pt will have at least 40 deg cervical ext and at least 65 deg B cervical rot. 06/07-much improved STG Duration 06/09 Alf Goal (LTG) Pt will have full shoulder AROM w/o inc pain to allow greater ease w/daily activities. Assessment Summary Assessment 145 deg AROM left shoulder flexion with patient commenting she feels better end of session. Physical Therapy Plan Frequency and Duration Frequency of Treatment 2x/Week Duration of treatment (weeks) 12 Plan of Care Start Date 05/06/24 Plan of Care End Date 07/29/24 Next Visit Focus/Plan Next Note Type Treatment Note Next Visit Plan review open book and suboccipital float, Consider adding neck stretches(UT, levator, scalenes). manual: ribs, tspine, biceps, pecs, shoulder jt mobility
--- NOTE | 2024-06-15 10:35 | PT.OTN ---
Current Diagnoses Pain in right shoulder (06/15/24) Pain in left shoulder (06/15/24) Cervicalgia (06/15/24) Physical Therapy Treatment Note PT-OP-A Visit Information Start: 04/12/24 10:11 Freq: Status: Active Protocol: Document 06/15/24 08:43 AB (Rec: 06/15/24 10:35 AB [id number]) Out-Patient Physical Therapy Visit Information Visit Information Visit Type Treatment Note Visit Note Access Code: [email or web address] Visit Start Time 09:48 Visit Stop Time 10:30 Visit Number 8 Number of SPINNING FRAME TENDER Visits 3 PT-OP-B Current Condition Start: 04/12/24 10:11 Freq: Status: Active Protocol: Document 05/06/24 09:54 [facility] (Rec: 05/06/24 10:49 [facility] [id number]) Current Condition History of Current Condition Onset Date few months Current Complaints B brachium, neck History of Current Condition Had xrays in shoulders and R shows OA, L shows nothing and neck xray shows degeneration. Feels like ripping in B brachiums. Fell at [employer] and that iritated L shoulder ( this was after xray). She had bruises for weeks. she was able to move it. no injury to R shoulder or neck. SHe has been doing a lot of moving for her cousin and that is increasing pain. hx of chronic LBP. She is getting massage 1x/month. denies numbness/ tingling in arms, dizziness, LIM, lightheadeness Treatment Goals Patient/Caregiver Goals improve mobility of arms PT-OP-C Subjective Start: 04/12/24 10:11 Freq: Status: Active Protocol: Document 06/15/24 08:43 AB (Rec: 06/15/24 10:35 AB [id number]) OP-PT Subjective Patient Comments Patient Comments Patient reports she is better, right shoulder pain persists, rates pain 3/10 start of session. Neck stiffness with turning left persists. AROM 136 right shoulder flexion start of session. PT-OP-F Manual Assessment Start: 04/12/24 10:11 Freq: Status: Active Protocol: Document 05/06/24 09:54 [facility] (Rec: 05/06/24 10:49 [facility] [id number]) Manual Assessments Soft Tissue Assessment Soft Tissue Mobility Assessment tightness throughout cervical mm and tenderness along w/pec PT-OP-J Posture/Palpation/Skin Start: 04/12/24 10:11 Freq: Status: Active Protocol: Document 05/06/24 09:54 [facility] (Rec: 05/06/24 10:49 [facility] [id number]) Posture Evaluation [facility] Postural Classification System [facility] Postural Classifications Posterior/Anterior Elbow Flexion Test 1 Comments Posture Comments inc kyphosis, fwd head, L trunk rot, R 1st rib elevated, R scap >L fwd tilt, R scap abd and elevated PT-OP-K Range of Motion Start: 04/12/24 10:11 Freq: Status: Active Protocol: Document 06/07/24 16:58 [facility] (Rec: 06/07/24 18:12 [facility] [id number]) Cervical Spine Range of Motion Cervical Spine Active Degrees Flexion 60 Extension 30 Rotation Left 48 Rotation Right 50 Lateral Flexion Left 27 Lateral Flexion Right 25 Comments pain R rot and SB and ext Shoulder Goniometric Range of Motion Shoulder Right Active Flexion 143 Extension 49 Abduction 110 External Rotation at 0 degrees Abduction 51 Internal Rotation Behind Back (text) L2 Comments pain w/eccentric lowering Left Active Flexion 148 Extension 60 Abduction 140 External Rotation at 0 degrees Abduction 51 Internal Rotation Behind Back (text) T11 Comments pain w/lowering from overhead PT-OP-L Special Tests Start: 04/12/24 10:11 Freq: Status: Active Protocol: Document 05/06/24 09:54 [facility] (Rec: 05/06/24 10:49 [facility] [id number]) Special Tests Cervical Spine Special Tests Vertebral Artery Test Results positional screen neg, ausciltation of carotid and heart 4 points WNL Tectoral membrane Test Results neg Transverse Ligament Test Results neg Alar Ligament Test Results neg Traction Test Results relief Spurling's Test Test Results neg Shoulder Special Tests [place] Impingement Comments positive R neg L Neer Impingement Comments neg B Sulcus Comments neg B [place] Test Comments neg B Speed's Biceps Comments positive B Empty Can Comments neg B AC Joint Compression Comments neg B Neural Special Tests- Upper Body Median Nerve Tension Comments tension noted on L but dec w/ SB R neg R Radial Nerve Tension Comments tension noted on L but dec w/ SB R neg R Ulnar Nerve Tension Comments neg B PT-OP-M Strength Start: 04/12/24 10:11 Freq: Status: Active Protocol: Document 06/07/24 16:58 [facility] (Rec: 06/07/24 18:12 [facility] [id number]) Shoulder Strength Shoulder Manual Muscle Testing Right Flexion 4- Good- Extension 3+ Fair+ Abduction (C5) 3+ Fair+ External Rotation 4 Good Internal Rotation 4+ Good+ Left Flexion 4 Good Extension 4 Good Abduction (C5) 3+ Fair+ External Rotation 4 Good Internal Rotation 4+ Good+ Elbow/Forearm Strength Elbow and Forearm Manual Muscle Testing Right Flexion (C6) 4 Good Extension (C7) 4 Good Pronation 4+ Good+ Supination 4 Good Left Flexion (C6) 4 Good Extension (C7) 4 Good Pronation 4+ Good+ Supination 4+ Good+ PT-OP-Q Treatments Start: 04/12/24 10:11 Freq: Status: Active Protocol: Document 06/15/24 08:43 AB (Rec: 06/15/24 10:35 AB [id number]) Therapeutic Exercises Supine Exercises CS rotation Supine Exercise Name AROM on occipital float Side bilateral Reps/Minutes 3 min Comments verbal cues to perform slowly in pain free range supine shoulder flexion Supine Exercise Name ER with flexion Side bilateral Resistance level one band Reps/Minutes X7 Sitting Exercises UT stretch Sitting Exercise Name HEP Side bilateral Reps/Minutes 30 sec X 2 each side scalene stretch Sitting Exercise Name seated holding chair Side bilateral Resistance HEP Reps/Minutes 30 sec x2 Comments verbal and visual cues Other Exercises isometrics Other Exercise Name Isometric reactive deep neck flexors Side bilateral Equipment Used level one band Reps/Minutes X5 Comments Verbal and visual cues Manual Therapy Treatment Consent Patient gave verbal consent for manual Yes treatment Soft Tissue Mobilization neck Body Location scalenes, UT, levator scap, SCM Bilateral Mobilization Type Cross-Friction,Myofascial Release,Rolling,Sustained Pressure Intensity/Depth Moderate Comments to superficial bilateral shoulders Body Location R pec Mobilization Type Rolling,Sustained Pressure Joint Mobilizations GH Joint L AP and inf Grade IV Reps/Duration X10 X 3 AC Direction inf Reps/Duration X10 ribs Joint 1 st rib Direction inf Reps/Duration X10 scapula Joint bilateral Direction into depression and adduction Grade IV Body Position Sidelying Reps/Duration X10 each direction each UE PT-OP-T Assessment and Plan Start: 04/12/24 10:11 Freq: Status: Active Protocol: Document 06/15/24 08:43 AB (Rec: 06/15/24 10:35 AB [id number]) Physical Therapy Assessment Goals activity [employer] Goal (LTG) Pt will report being able to do all typical lifting and household activities w/o inc pain >2/10 06/07-01/27 w/moving family LTG Duration 07/29/24 strength Short Term Goal (STG) Pt will be indep w/HEP 06/07-was until last week where was helping move family, does require cues STG Duration 06/09 [employer] Goal (LTG) Pt will score at least 4+/5 on BUE MMT and at least 3/5 on EFT to show improved stability and strength to make daily activities easier. 06/07-improving LTG Duration 07/29 ROM Short Term Goal (STG) Pt will have at least 40 deg cervical ext and at least 65 deg B cervical rot. 06/07-much improved STG Duration 06/09 [employer] Goal (LTG) Pt will have full shoulder AROM w/o inc pain to allow greater ease w/daily activities. Assessment Summary Assessment AROM right shoulder flexion 150 deg end of session. Physical Therapy Plan Frequency and Duration Frequency of Treatment 2x/Week Duration of treatment (weeks) 12 Plan of Care Start Date 05/06/24 Plan of Care End Date 07/29/24 Next Visit Focus/Plan Next Note Type Treatment Note Next Visit Plan review open book and suboccipital float, Consider adding neck stretches(UT, levator, scalenes). manual: ribs, tspine, biceps, pecs, shoulder jt mobility
--- NOTE | 2024-06-16 15:17 | PT.OTN ---
Current Diagnoses Pain in right shoulder (06/16/24) Pain in left shoulder (06/16/24) Cervicalgia (06/16/24) Physical Therapy Treatment Note PT-OP-A Visit Information Start: 04/12/24 10:11 Freq: Status: Active Protocol: Document 06/16/24 14:32 MB (Rec: 06/16/24 15:17 MB [id number]) Out-Patient Physical Therapy Visit Information Visit Information Visit Type Treatment Note Visit Note Access Code: [email or web address] Visit Start Time 14:32 Visit Stop Time 14:58 Visit Number 9 Number of ROOF TRUSS MACHINE TENDER Visits 0 PT-OP-B Current Condition Start: 04/12/24 10:11 Freq: Status: Active Protocol: Document 05/06/24 09:54 [facility] (Rec: 05/06/24 10:49 [facility] [id number]) Current Condition History of Current Condition Onset Date few months Current Complaints B brachium, neck History of Current Condition Had xrays in shoulders and R shows OA, L shows nothing and neck xray shows degeneration. Feels like ripping in B brachiums. Fell at [employer] and that iritated L shoulder ( this was after xray). She had bruises for weeks. she was able to move it. no injury to R shoulder or neck. SHe has been doing a lot of moving for her cousin and that is increasing pain. hx of chronic LBP. She is getting massage 1x/month. denies numbness/ tingling in arms, dizziness, LIM, lightheadeness Treatment Goals Patient/Caregiver Goals improve mobility of arms PT-OP-C Subjective Start: 04/12/24 10:11 Freq: Status: Active Protocol: Document 06/16/24 14:32 MB (Rec: 06/16/24 15:17 MB [id number]) OP-PT Subjective Patient Comments Patient Comments Pt felt good after last treatment. PT-OP-F Manual Assessment Start: 04/12/24 10:11 Freq: Status: Active Protocol: Document 05/06/24 09:54 [facility] (Rec: 05/06/24 10:49 [facility] [id number]) Manual Assessments Soft Tissue Assessment Soft Tissue Mobility Assessment tightness throughout cervical mm and tenderness along w/pec PT-OP-J Posture/Palpation/Skin Start: 04/12/24 10:11 Freq: Status: Active Protocol: Document 05/06/24 09:54 [facility] (Rec: 05/06/24 10:49 [facility] [id number]) Posture Evaluation Whitney Postural Classification System Whitney Postural Classifications Posterior/Anterior Elbow Flexion Test 1 Comments Posture Comments inc kyphosis, fwd head, L trunk rot, R 1st rib elevated, R scap >L fwd tilt, R scap abd and elevated PT-OP-K Range of Motion Start: 04/12/24 10:11 Freq: Status: Active Protocol: Document 06/07/24 16:58 [facility] (Rec: 06/07/24 18:12 [facility] [id number]) Cervical Spine Range of Motion Cervical Spine Active Degrees Flexion 60 Extension 30 Rotation Left 48 Rotation Right 50 Lateral Flexion Left 27 Lateral Flexion Right 25 Comments pain R rot and SB and ext Shoulder Goniometric Range of Motion Shoulder Right Active Flexion 143 Extension 49 Abduction 110 External Rotation at 0 degrees Abduction 51 Internal Rotation Behind Back (text) L2 Comments pain w/eccentric lowering Left Active Flexion 148 Extension 60 Abduction 140 External Rotation at 0 degrees Abduction 51 Internal Rotation Behind Back (text) T11 Comments pain w/lowering from overhead PT-OP-L Special Tests Start: 04/12/24 10:11 Freq: Status: Active Protocol: Document 05/06/24 09:54 [facility] (Rec: 05/06/24 10:49 [facility] [id number]) Special Tests Cervical Spine Special Tests Vertebral Artery Test Results positional screen neg, ausciltation of carotid and heart 4 points WNL Tectoral membrane Test Results neg Transverse Ligament Test Results neg Alar Ligament Test Results neg Traction Test Results relief Spurling's Test Test Results neg Shoulder Special Tests [place] Impingement Comments positive R neg L Neer Impingement Comments neg B Sulcus Comments neg B [place] Test Comments neg B Speed's Biceps Comments positive B Empty [place] Comments neg B AC Joint Compression Comments neg B Neural Special Tests- Upper Body Median Nerve Tension Comments tension noted on L but dec w/ SB R neg R Radial Nerve Tension Comments tension noted on L but dec w/ SB R neg R Ulnar Nerve Tension Comments neg B PT-OP-M Strength Start: 04/12/24 10:11 Freq: Status: Active Protocol: Document 06/07/24 16:58 [facility] (Rec: 06/07/24 18:12 [facility] [id number]) Shoulder Strength Shoulder Manual Muscle Testing Right Flexion 4- Good- Extension 3+ Fair+ Abduction (C5) 3+ Fair+ External Rotation 4 Good Internal Rotation 4+ Good+ Left Flexion 4 Good Extension 4 Good Abduction (C5) 3+ Fair+ External Rotation 4 Good Internal Rotation 4+ Good+ Elbow/Forearm Strength Elbow and Forearm Manual Muscle Testing Right Flexion (C6) 4 Good Extension (C7) 4 Good Pronation 4+ Good+ Supination 4 Good Left Flexion (C6) 4 Good Extension (C7) 4 Good Pronation 4+ Good+ Supination 4+ Good+ PT-OP-Q Treatments Start: 04/12/24 10:11 Freq: Status: Active Protocol: Document 06/16/24 14:32 MB (Rec: 06/16/24 15:17 MB [id number]) Manual Therapy Treatment Consent Patient gave verbal consent for manual Yes treatment Other Other Manual Treatments Pt prone: rib recoil as ribs and thoracic spine are very tight, STM and TrP cervical paraspinals, B infraspinatus, left upper traps PT-OP-T Assessment and Plan Start: 04/12/24 10:11 Freq: Status: Active Protocol: Document 06/16/24 14:32 MB (Rec: 06/16/24 15:17 MB [id number]) Physical Therapy Assessment Goals activity Room Inspector Goal (LTG) Pt will report being able to do all typical lifting and household activities w/o inc pain >2/10 06/07-01/27 w/moving family LTG Duration 07/29/24 strength Short Term Goal (STG) Pt will be indep w/HEP 06/07-was until last week where was helping move family, does require cues STG Duration 06/09 Senior Care Goal (LTG) Pt will score at least 4+/5 on BUE MMT and at least 3/5 on EFT to show improved stability and strength to make daily activities easier. 06/07-improving LTG Duration 07/29 ROM Short Term Goal (STG) Pt will have at least 40 deg cervical ext and at least 65 deg B cervical rot. 06/07-much improved STG Duration 06/09 Senior Care Goal (LTG) Pt will have full shoulder AROM w/o inc pain to allow greater ease w/daily activities. Assessment Summary Assessment Pt responds well to manual work today, con't per primary PT's plan. Thoracic spine is very tight and this affects cervical position, posture and pain. Consider diaphragm breathing and sitting and stretches over therapy ball. Physical Therapy Plan Frequency and Duration Frequency of Treatment 2x/Week Duration of treatment (weeks) 12 Plan of Care Start Date 05/06/24 Plan of Care End Date 07/29/24 Next Visit Focus/Plan Next Note Type Treatment Note Next Visit Plan Con't per plan, exercise review and con't to work on thoracic mobility, manual work
--- NOTE | 2024-06-22 09:44 | PT.OTN ---
Current Diagnoses Pain in right shoulder (06/22/24) Pain in left shoulder (06/22/24) Cervicalgia (06/22/24) Physical Therapy Treatment Note PT-OP-A Visit Information Start: 04/12/24 10:11 Freq: Status: Active Protocol: Document 06/22/24 09:05 MB (Rec: 06/22/24 09:43 MB [id number]) Out-Patient Physical Therapy Visit Information Visit Information Visit Type Treatment Note Visit Note Access Code: [email or web address] Visit Start Time 09:05 Visit Stop Time 09:45 Visit Number 10 Number of FILE MACHINE OPERATOR Visits 0 PT-OP-B Current Condition Start: 04/12/24 10:11 Freq: Status: Active Protocol: Document 05/06/24 09:54 [facility] (Rec: 05/06/24 10:49 [facility] [id number]) Current Condition History of Current Condition Onset Date few months Current Complaints B brachium, neck History of Current Condition Had xrays in shoulders and R shows OA, L shows nothing and neck xray shows degeneration. Feels like ripping in B brachiums. Fell at [employer] and that iritated L shoulder ( this was after xray). She had bruises for weeks. she was able to move it. no injury to R shoulder or neck. SHe has been doing a lot of moving for her cousin and that is increasing pain. hx of chronic LBP. She is getting massage 1x/month. denies numbness/ tingling in arms, dizziness, LIM, lightheadeness Treatment Goals Patient/Caregiver Goals improve mobility of arms PT-OP-C Subjective Start: 04/12/24 10:11 Freq: Status: Active Protocol: Document 06/22/24 09:05 MB (Rec: 06/22/24 09:43 MB [id number]) OP-PT Subjective Patient Comments Patient Comments Manual work was helpful but not as much as the first time. PT-OP-F Manual Assessment Start: 04/12/24 10:11 Freq: Status: Active Protocol: Document 05/06/24 09:54 [facility] (Rec: 05/06/24 10:49 [facility] [id number]) Manual Assessments Soft Tissue Assessment Soft Tissue Mobility Assessment tightness throughout cervical mm and tenderness along w/pec PT-OP-J Posture/Palpation/Skin Start: 04/12/24 10:11 Freq: Status: Active Protocol: Document 05/06/24 09:54 [facility] (Rec: 05/06/24 10:49 [facility] [id number]) Posture Evaluation Whitney Postural Classification System Whitney Postural Classifications Posterior/Anterior Elbow Flexion Test 1 Comments Posture Comments inc kyphosis, fwd head, L trunk rot, R 1st rib elevated, R scap >L fwd tilt, R scap abd and elevated PT-OP-K Range of Motion Start: 04/12/24 10:11 Freq: Status: Active Protocol: Document 06/07/24 16:58 [facility] (Rec: 06/07/24 18:12 [facility] [id number]) Cervical Spine Range of Motion Cervical Spine Active Degrees Flexion 60 Extension 30 Rotation Left 48 Rotation Right 50 Lateral Flexion Left 27 Lateral Flexion Right 25 Comments pain R rot and SB and ext Shoulder Goniometric Range of Motion Shoulder Right Active Flexion 143 Extension 49 Abduction 110 External Rotation at 0 degrees Abduction 51 Internal Rotation Behind Back (text) L2 Comments pain w/eccentric lowering Left Active Flexion 148 Extension 60 Abduction 140 External Rotation at 0 degrees Abduction 51 Internal Rotation Behind Back (text) T11 Comments pain w/lowering from overhead PT-OP-L Special Tests Start: 04/12/24 10:11 Freq: Status: Active Protocol: Document 05/06/24 09:54 [facility] (Rec: 05/06/24 10:49 [facility] [id number]) Special Tests Cervical Spine Special Tests Vertebral Artery Test Results positional screen neg, ausciltation of carotid and heart 4 points WNL Tectoral membrane Test Results neg Transverse Ligament Test Results neg Alar Ligament Test Results neg Traction Test Results relief Spurling's Test Test Results neg Shoulder Special Tests [place] Impingement Comments positive R neg L Neer Impingement Comments neg B Sulcus Comments neg B [place] Test Comments neg B Speed's Biceps Comments positive B Empty Can Comments neg B AC Joint Compression Comments neg B Neural Special Tests- Upper Body Median Nerve Tension Comments tension noted on L but dec w/ SB R neg R Radial Nerve Tension Comments tension noted on L but dec w/ SB R neg R Ulnar Nerve Tension Comments neg B PT-OP-M Strength Start: 04/12/24 10:11 Freq: Status: Active Protocol: Document 06/07/24 16:58 [facility] (Rec: 06/07/24 18:12 [facility] [id number]) Shoulder Strength Shoulder Manual Muscle Testing Right Flexion 4- Good- Extension 3+ Fair+ Abduction (C5) 3+ Fair+ External Rotation 4 Good Internal Rotation 4+ Good+ Left Flexion 4 Good Extension 4 Good Abduction (C5) 3+ Fair+ External Rotation 4 Good Internal Rotation 4+ Good+ Elbow/Forearm Strength Elbow and Forearm Manual Muscle Testing Right Flexion (C6) 4 Good Extension (C7) 4 Good Pronation 4+ Good+ Supination 4 Good Left Flexion (C6) 4 Good Extension (C7) 4 Good Pronation 4+ Good+ Supination 4+ Good+ PT-OP-Q Treatments Start: 04/12/24 10:11 Freq: Status: Active Protocol: Document 06/22/24 09:05 MB (Rec: 06/22/24 09:43 MB [id number]) Therapeutic Exercises Supine Exercises Supported pect stretch and snow megha Supine Exercise Name HEP and HO, shoulder abduction AROM and pect stretch hold Side bilateral Comments // and perpendicular pillows under thorax, knees bents, towel roll under ne Manual Therapy Treatment Consent Patient gave verbal consent for manual Yes treatment Other Other Manual Treatments Pt prone: rib recoil as ribs and thoracic spine are very tight, STM and TrP cervical paraspinals, right infraspinatus, right levator and upper traps, STM cervical paraspinals. Pt supine with legs supported and head and neck supported: STM right greater than left upper traps, first rib isometric right, right greater than left SCM STM, more right sided tension today PT-OP-T Assessment and Plan Start: 04/12/24 10:11 Freq: Status: Active Protocol: Document 06/22/24 09:05 MB (Rec: 06/22/24 09:43 MB [id number]) Physical Therapy Assessment Goals activity Inspector Hairspring Goal (LTG) Pt will report being able to do all typical lifting and household activities w/o inc pain >2/10 06/07-7/ w/moving family LTG Duration 07/29/24 strength Short Term Goal (STG) Pt will be indep w/HEP 06/07-was until last week where was helping move family, does require cues STG Duration 06/09 Inspector Hairspring Goal (LTG) Pt will score at least 4+/5 on BUE MMT and at least 3/5 on EFT to show improved stability and strength to make daily activities easier. 06/07-improving LTG Duration 07/29 ROM Short Term Goal (STG) Pt will have at least 40 deg cervical ext and at least 65 deg B cervical rot. 06/07-much improved STG Duration 06/09 Penitentiary Goal (LTG) Pt will have full shoulder AROM w/o inc pain to allow greater ease w/daily activities. Assessment Summary Assessment Increased tension in thoracic spine and ribs likely contributing to myofascial tension and postural pain. Con 't work on thoracic spine and ed for exercise and self-care. Physical Therapy Plan Frequency and Duration Frequency of Treatment 2x/Week Duration of treatment (weeks) 12 Plan of Care Start Date 05/06/24 Plan of Care End Date 07/29/24 Next Visit Focus/Plan Next Note Type Treatment Note Next Visit Plan Con't per plan, exercise review and con't to work on thoracic mobility, manual work
--- NOTE | 2024-06-24 12:54 | PT.OTN ---
Current Diagnoses Pain in right shoulder (06/24/24) Pain in left shoulder (06/24/24) Cervicalgia (06/24/24) Physical Therapy Treatment Note PT-OP-A Visit Information Start: 04/12/24 10:11 Freq: Status: Active Protocol: Document 06/24/24 10:45 AB (Rec: 06/24/24 12:54 AB [id number]) Out-Patient Physical Therapy Visit Information Visit Information Visit Type Treatment Note Visit Note Access Code: [email or web address] Visit Start Time 11:38 Visit Stop Time 12:21 Visit Number 11 Number of MAMMOGRAPHY TECHNOLOGIST Visits 2 PT-OP-B Current Condition Start: 04/12/24 10:11 Freq: Status: Active Protocol: Document 05/06/24 09:54 [facility] (Rec: 05/06/24 10:49 [facility] [id number]) Current Condition History of Current Condition Onset Date few months Current Complaints B brachium, neck History of Current Condition Had xrays in shoulders and R shows OA, L shows nothing and neck xray shows degeneration. Feels like ripping in B brachiums. Fell at [employer] and that iritated L shoulder ( this was after xray). She had bruises for weeks. she was able to move it. no injury to R shoulder or neck. SHe has been doing a lot of moving for her cousin and that is increasing pain. hx of chronic LBP. She is getting massage 1x/month. denies numbness/ tingling in arms, dizziness, LIM, lightheadeness Treatment Goals Patient/Caregiver Goals improve mobility of arms PT-OP-C Subjective Start: 04/12/24 10:11 Freq: Status: Active Protocol: Document 06/24/24 10:45 AB (Rec: 06/24/24 12:54 AB [id number]) OP-PT Subjective Patient Comments Patient Comments Patient rates right shoulder pain 7/10 down right UE, reports it has gotten worse. Patient reports she has hardly been able to do exercises, due to taking care of additional family members that moved to the area. AROM right shoulder flexion 137 deg, left 143 deg start of session. PT-OP-F Manual Assessment Start: 04/12/24 10:11 Freq: Status: Active Protocol: Document 05/06/24 09:54 [facility] (Rec: 05/06/24 10:49 [facility] [id number]) Manual Assessments Soft Tissue Assessment Soft Tissue Mobility Assessment tightness throughout cervical mm and tenderness along w/pec PT-OP-J Posture/Palpation/Skin Start: 04/12/24 10:11 Freq: Status: Active Protocol: Document 05/06/24 09:54 [facility] (Rec: 05/06/24 10:49 [facility] [id number]) Posture Evaluation Whitney Postural Classification System Whitney Postural Classifications Posterior/Anterior Elbow Flexion Test 1 Comments Posture Comments inc kyphosis, fwd head, L trunk rot, R 1st rib elevated, R scap >L fwd tilt, R scap abd and elevated PT-OP-K Range of Motion Start: 04/12/24 10:11 Freq: Status: Active Protocol: Document 06/07/24 16:58 [facility] (Rec: 06/07/24 18:12 [facility] [id number]) Cervical Spine Range of Motion Cervical Spine Active Degrees Flexion 60 Extension 30 Rotation Left 48 Rotation Right 50 Lateral Flexion Left 27 Lateral Flexion Right 25 Comments pain R rot and SB and ext Shoulder Goniometric Range of Motion Shoulder Right Active Flexion 143 Extension 49 Abduction 110 External Rotation at 0 degrees Abduction 51 Internal Rotation Behind Back (text) L2 Comments pain w/eccentric lowering Left Active Flexion 148 Extension 60 Abduction 140 External Rotation at 0 degrees Abduction 51 Internal Rotation Behind Back (text) T11 Comments pain w/lowering from overhead PT-OP-L Special Tests Start: 04/12/24 10:11 Freq: Status: Active Protocol: Document 05/06/24 09:54 [facility] (Rec: 05/06/24 10:49 [facility] [id number]) Special Tests Cervical Spine Special Tests Vertebral Artery Test Results positional screen neg, ausciltation of carotid and heart 4 points WNL Tectoral membrane Test Results neg Transverse Ligament Test Results neg Alar Ligament Test Results neg Traction Test Results relief Spurling's Test Test Results neg Shoulder Special Tests [place] Impingement Comments positive R neg L Neer Impingement Comments neg B Sulcus Comments neg B [place] Test Comments neg B Speed's Biceps Comments positive B Empty Can Comments neg B AC Joint Compression Comments neg B Neural Special Tests- Upper Body Median Nerve Tension Comments tension noted on L but dec w/ SB R neg R Radial Nerve Tension Comments tension noted on L but dec w/ SB R neg R Ulnar Nerve Tension Comments neg B PT-OP-M Strength Start: 04/12/24 10:11 Freq: Status: Active Protocol: Document 06/07/24 16:58 [facility] (Rec: 06/07/24 18:12 [facility] [id number]) Shoulder Strength Shoulder Manual Muscle Testing Right Flexion 4- Good- Extension 3+ Fair+ Abduction (C5) 3+ Fair+ External Rotation 4 Good Internal Rotation 4+ Good+ Left Flexion 4 Good Extension 4 Good Abduction (C5) 3+ Fair+ External Rotation 4 Good Internal Rotation 4+ Good+ Elbow/Forearm Strength Elbow and Forearm Manual Muscle Testing Right Flexion (C6) 4 Good Extension (C7) 4 Good Pronation 4+ Good+ Supination 4 Good Left Flexion (C6) 4 Good Extension (C7) 4 Good Pronation 4+ Good+ Supination 4+ Good+ PT-OP-Q Treatments Start: 04/12/24 10:11 Freq: Status: Active Protocol: Document 06/24/24 10:45 AB (Rec: 06/24/24 12:54 AB [id number]) Therapeutic Exercises Supine Exercises CS rotation Supine Exercise Name AROM on occipital float Side bilateral Reps/Minutes 3 min Comments verbal cues to perform slowly in pain free range supine shoulder flexion Supine Exercise Name ER with flexion Side bilateral Resistance level one band Reps/Minutes X10 Comments verbal cues monitored for pain increase Sidelying Exercises Open book Side bilateral Reps/Minutes x10 Comments Greater rotation to L than R. Sitting Exercises seated trunk rotation Sitting Exercise Name AROM Side bilateral Reps/Minutes X6 Comments verbal cues Manual Therapy Treatment Consent Patient gave verbal consent for manual Yes treatment Soft Tissue Mobilization thoracic spine Body Location bilateral Mobilization Type Sustained Pressure Intensity/Depth Moderate Body Position Sidelying neck Body Location B scalenes, UT, levator scap, SCM Bilateral Mobilization Type Cross-Friction,Myofascial Release,Rolling,Sustained Pressure Intensity/Depth Moderate Comments to superficial bilateral shoulders Body Location B pec Mobilization Type Rolling,Sustained Pressure Joint Mobilizations scapula Joint bilateral Direction into depression and adduction Grade IV Body Position Sidelying Reps/Duration X10 each direction each UE PT-OP-T Assessment and Plan Start: 04/12/24 10:11 Freq: Status: Active Protocol: Document 06/24/24 10:45 AB (Rec: 06/24/24 12:54 AB [id number]) Physical Therapy Assessment Goals activity Skilled Nursing Goal (LTG) Pt will report being able to do all typical lifting and household activities w/o inc pain >2/10 06/07-7/10 w/moving family LTG Duration 07/29/24 strength Short Term Goal (STG) Pt will be indep w/HEP 06/07-was until last week where was helping move family, does require cues STG Duration 06/09 Child Care Goal (LTG) Pt will score at least 4+/5 on BUE MMT and at least 3/5 on EFT to show improved stability and strength to make daily activities easier. 06/07-improving LTG Duration 07/29 ROM Short Term Goal (STG) Pt will have at least 40 deg cervical ext and at least 65 deg B cervical rot. 06/07-much improved STG Duration 06/09 Skilled Nursing Goal (LTG) Pt will have full shoulder AROM w/o inc pain to allow greater ease w/daily activities. Assessment Summary Assessment 142 right 152 deg left 5/10 right UE flexion end of session. Inc AROM should allow patient to reach items at higher levels in home. Physical Therapy Plan Frequency and Duration Frequency of Treatment 2x/Week Duration of treatment (weeks) 12 Plan of Care Start Date 05/06/24 Plan of Care End Date 07/29/24 Next Visit Focus/Plan Next Note Type Treatment Note Next Visit Plan Con't per plan, exercise review and con't to work on thoracic mobility, manual work
--- NOTE | 2024-06-28 16:18 | PT.OTN ---
Current Diagnoses Pain in right shoulder (06/28/24) Pain in left shoulder (06/28/24) Cervicalgia (06/28/24) Physical Therapy Treatment Note PT-OP-A Visit Information Start: 04/12/24 10:11 Freq: Status: Active Protocol: Document 06/28/24 15:11 AB (Rec: 06/28/24 16:18 AB [id number]) Out-Patient Physical Therapy Visit Information Visit Information Visit Type Treatment Note Visit Note Access Code: [email or web address] Visit Start Time 15:18 Visit Stop Time 16:04 Visit Number 12 Number of GOLF SALES MANAGER Visits 3 PT-OP-B Current Condition Start: 04/12/24 10:11 Freq: Status: Active Protocol: Document 05/06/24 09:54 [facility] (Rec: 05/06/24 10:49 [facility] [id number]) Current Condition History of Current Condition Onset Date few months Current Complaints B brachium, neck History of Current Condition Had xrays in shoulders and R shows OA, L shows nothing and neck xray shows degeneration. Feels like ripping in B brachiums. Fell at [employer] and that iritated L shoulder ( this was after xray). She had bruises for weeks. she was able to move it. no injury to R shoulder or neck. SHe has been doing a lot of moving for her cousin and that is increasing pain. hx of chronic LBP. She is getting massage 1x/month. denies numbness/ tingling in arms, dizziness, LIM, lightheadeness Treatment Goals Patient/Caregiver Goals improve mobility of arms PT-OP-C Subjective Start: 04/12/24 10:11 Freq: Status: Active Protocol: Document 06/28/24 15:11 AB (Rec: 06/28/24 16:18 AB [id number]) OP-PT Subjective Patient Comments Patient Comments Patient reports pain is less consistent, rates pain 3/10 start of session right, doesn' t feel the pain down the arm like she did before.AROM 147 R 150 deg flexion L PT-OP-F Manual Assessment Start: 04/12/24 10:11 Freq: Status: Active Protocol: Document 05/06/24 09:54 [facility] (Rec: 05/06/24 10:49 [facility] [id number]) Manual Assessments Soft Tissue Assessment Soft Tissue Mobility Assessment tightness throughout cervical mm and tenderness along w/pec PT-OP-J Posture/Palpation/Skin Start: 04/12/24 10:11 Freq: Status: Active Protocol: Document 05/06/24 09:54 [facility] (Rec: 05/06/24 10:49 [facility] [id number]) Posture Evaluation [facility] Postural Classification System [facility] Postural Classifications Posterior/Anterior Elbow Flexion Test 1 Comments Posture Comments inc kyphosis, fwd head, L trunk rot, R 1st rib elevated, R scap >L fwd tilt, R scap abd and elevated PT-OP-K Range of Motion Start: 04/12/24 10:11 Freq: Status: Active Protocol: Document 06/07/24 16:58 [facility] (Rec: 06/07/24 18:12 [facility] [id number]) Cervical Spine Range of Motion Cervical Spine Active Degrees Flexion 60 Extension 30 Rotation Left 48 Rotation Right 50 Lateral Flexion Left 27 Lateral Flexion Right 25 Comments pain R rot and SB and ext Shoulder Goniometric Range of Motion Shoulder Right Active Flexion 143 Extension 49 Abduction 110 External Rotation at 0 degrees Abduction 51 Internal Rotation Behind Back (text) L2 Comments pain w/eccentric lowering Left Active Flexion 148 Extension 60 Abduction 140 External Rotation at 0 degrees Abduction 51 Internal Rotation Behind Back (text) T11 Comments pain w/lowering from overhead PT-OP-L Special Tests Start: 04/12/24 10:11 Freq: Status: Active Protocol: Document 05/06/24 09:54 [facility] (Rec: 05/06/24 10:49 [facility] [id number]) Special Tests Cervical Spine Special Tests Vertebral Artery Test Results positional screen neg, ausciltation of carotid and heart 4 points WNL Tectoral membrane Test Results neg Transverse Ligament Test Results neg Alar Ligament Test Results neg Traction Test Results relief Spurling's Test Test Results neg Shoulder Special Tests [place] Impingement Comments positive R neg L Neer Impingement Comments neg B Sulcus Comments neg B [place] Test Comments neg B Speed's Biceps Comments positive B Empty Can Comments neg B AC Joint Compression Comments neg B Neural Special Tests- Upper Body Median Nerve Tension Comments tension noted on L but dec w/ SB R neg R Radial Nerve Tension Comments tension noted on L but dec w/ SB R neg R Ulnar Nerve Tension Comments neg B PT-OP-M Strength Start: 04/12/24 10:11 Freq: Status: Active Protocol: Document 06/07/24 16:58 [facility] (Rec: 06/07/24 18:12 [facility] [id number]) Shoulder Strength Shoulder Manual Muscle Testing Right Flexion 4- Good- Extension 3+ Fair+ Abduction (C5) 3+ Fair+ External Rotation 4 Good Internal Rotation 4+ Good+ Left Flexion 4 Good Extension 4 Good Abduction (C5) 3+ Fair+ External Rotation 4 Good Internal Rotation 4+ Good+ Elbow/Forearm Strength Elbow and Forearm Manual Muscle Testing Right Flexion (C6) 4 Good Extension (C7) 4 Good Pronation 4+ Good+ Supination 4 Good Left Flexion (C6) 4 Good Extension (C7) 4 Good Pronation 4+ Good+ Supination 4+ Good+ PT-OP-Q Treatments Start: 04/12/24 10:11 Freq: Status: Active Protocol: Document 06/28/24 15:11 AB (Rec: 06/28/24 16:18 AB [id number]) Therapeutic Exercises Supine Exercises deep neck flexor lift Supine Exercise Name HEP Reps/Minutes 5 X Comments Verbal cues to lift head slightly CS rotation Supine Exercise Name AROM on occipital float Side bilateral Reps/Minutes 3 min Comments verbal cues to perform slowly in pain free range supine shoulder flexion Supine Exercise Name ER with flexion Side bilateral Resistance level one band Reps/Minutes X10 Comments verbal cues monitored for pain increase Sidelying Exercises Open book Side bilateral Reps/Minutes x10 Comments post manual Sitting Exercises seated trunk rotation Sitting Exercise Name AROM Side bilateral Reps/Minutes X6 Comments verbal cues Standing Exercises wall slide flexion Side bilateral Reps/Minutes X10 Comments verbal and visual cues Manual Therapy Treatment Soft Tissue Mobilization thoracic spine Body Location bilateral Mobilization Type Sustained Pressure Intensity/Depth Moderate Body Position Sidelying bilateral shoulders Body Location B pec Mobilization Type Rolling,Sustained Pressure Joint Mobilizations GH Joint L AP and inf Grade IV Reps/Duration X10 X 3 scapula Joint bilateral Direction into depression and adduction Grade IV Body Position Sidelying Reps/Duration X10 each direction each UE PT-OP-T Assessment and Plan Start: 04/12/24 10:11 Freq: Status: Active Protocol: Document 06/28/24 15:11 AB (Rec: 06/28/24 16:18 AB [id number]) Physical Therapy Assessment Goals activity Guidance Adviser Goal (LTG) Pt will report being able to do all typical lifting and household activities w/o inc pain >2/10 06/07-01/27 w/moving family LTG Duration 07/29/24 strength Short Term Goal (STG) Pt will be indep w/HEP 06/07-was until last week where was helping move family, does require cues STG Duration 06/09 Mcfp Goal (LTG) Pt will score at least 4+/5 on BUE MMT and at least 3/5 on EFT to show improved stability and strength to make daily activities easier. 06/07-improving LTG Duration 07/29 ROM Short Term Goal (STG) Pt will have at least 40 deg cervical ext and at least 65 deg B cervical rot. 06/07-much improved STG Duration 06/09 Mcfp Goal (LTG) Pt will have full shoulder AROM w/o inc pain to allow greater ease w/daily activities. Assessment Summary Assessment AROM 152 deg right shoulder flexion end of session, rating pain 1/10 bilateral shoulders end of session. Physical Therapy Plan Frequency and Duration Frequency of Treatment 2x/Week Duration of treatment (weeks) 12 Plan of Care Start Date 05/06/24 Plan of Care End Date 07/29/24 Next Visit Focus/Plan Next Note Type Treatment Note Next Visit Plan Con't per plan, exercise review/CS stretches, plank, possibly discontinue short sit to upright and con't to work on thoracic mobility, manual work
--- NOTE | 2024-06-30 13:31 | PT.OTN ---
Current Diagnoses Pain in right shoulder (06/30/24) Pain in left shoulder (06/30/24) Cervicalgia (06/30/24) Physical Therapy Treatment Note PT-OP-A Visit Information Start: 04/12/24 10:11 Freq: Status: Active Protocol: Document 06/30/24 11:33 [facility] (Rec: 06/30/24 13:31 [facility] [id number]) Out-Patient Physical Therapy Visit Information Visit Information Visit Type Progress Note Visit Note Access Code: [email or web address] Visit Start Time 11:32 Visit Stop Time 12:14 Visit Number 13 Number of BOW MAKER CUSTOM Visits 0 PT-OP-B Current Condition Start: 04/12/24 10:11 Freq: Status: Active Protocol: Document 05/06/24 09:54 [facility] (Rec: 05/06/24 10:49 [facility] [id number]) Current Condition History of Current Condition Onset Date few months Current Complaints B brachium, neck History of Current Condition Had xrays in shoulders and R shows OA, L shows nothing and neck xray shows degeneration. Feels like ripping in B brachiums. Fell at [employer] and that iritated L shoulder ( this was after xray). She had bruises for weeks. she was able to move it. no injury to R shoulder or neck. SHe has been doing a lot of moving for her cousin and that is increasing pain. hx of chronic LBP. She is getting massage 1x/month. denies numbness/ tingling in arms, dizziness, LIM, lightheadeness Treatment Goals Patient/Caregiver Goals improve mobility of arms PT-OP-C Subjective Start: 04/12/24 10:11 Freq: Status: Active Protocol: Document 06/30/24 11:30 [facility] (Rec: 06/30/24 11:33 [facility] [id number]) OP-PT Subjective Patient Comments Patient Comments Pt reports neck is just stiff today but shoulders are feeling pretty good. PT-OP-F Manual Assessment Start: 04/12/24 10:11 Freq: Status: Active Protocol: Document 05/06/24 09:54 [facility] (Rec: 05/06/24 10:49 [facility] [id number]) Manual Assessments Soft Tissue Assessment Soft Tissue Mobility Assessment tightness throughout cervical mm and tenderness along w/pec PT-OP-J Posture/Palpation/Skin Start: 04/12/24 10:11 Freq: Status: Active Protocol: Document 05/06/24 09:54 [facility] (Rec: 05/06/24 10:49 [facility] [id number]) Posture Evaluation Whitney Postural Classification System Whitney Postural Classifications Posterior/Anterior Elbow Flexion Test 1 Comments Posture Comments inc kyphosis, fwd head, L trunk rot, R 1st rib elevated, R scap >L fwd tilt, R scap abd and elevated PT-OP-K Range of Motion Start: 04/12/24 10:11 Freq: Status: Active Protocol: Document 06/30/24 11:33 [facility] (Rec: 06/30/24 13:31 [facility] [id number]) Cervical Spine Range of Motion Cervical Spine Active Degrees Flexion 66 Extension 33 Rotation Left 54 Rotation Right 50 Lateral Flexion Left 26 Lateral Flexion Right 25 Comments painR rot and SB and ext Shoulder Goniometric Range of Motion Shoulder Right Active Flexion 150 Extension 50 Abduction 115 External Rotation at 0 degrees Abduction 54 Internal Rotation Behind Back (text) T12 Comments tight at end ranges, pain w/ eccentric abd lowering Left Active Flexion 154 Extension 66 Abduction 168 External Rotation at 0 degrees Abduction 64 Internal Rotation Behind Back (text) T11 Comments pain w/lowering from overhead PT-OP-L Special Tests Start: 04/12/24 10:11 Freq: Status: Active Protocol: Document 05/06/24 09:54 [facility] (Rec: 05/06/24 10:49 [facility] [id number]) Special Tests Cervical Spine Special Tests Vertebral Artery Test Results positional screen neg, ausciltation of carotid and heart 4 points WNL Tectoral membrane Test Results neg Transverse Ligament Test Results neg Alar Ligament Test Results neg Traction Test Results relief Spurling's Test Test Results neg Shoulder Special Tests [place] Blake Impingement Comments positive R neg L Neer Impingement Comments neg B Sulcus Comments neg B Jones Test Comments neg B Speed's Biceps Comments positive B Empty Can Comments neg B AC Joint Compression Comments neg B Neural Special Tests- Upper Body Median Nerve Tension Comments tension noted on L but dec w/ SB R neg R Radial Nerve Tension Comments tension noted on L but dec w/ SB R neg R Ulnar Nerve Tension Comments neg B PT-OP-M Strength Start: 04/12/24 10:11 Freq: Status: Active Protocol: Document 06/30/24 11:33 [facility] (Rec: 06/30/24 13:31 [facility] [id number]) Shoulder Strength Shoulder Manual Muscle Testing Right Flexion 4 Good Extension 4 Good Abduction (C5) 3+ Fair+ External Rotation 4 Good Internal Rotation 4+ Good+ Comments pain B abd Left Flexion 4+ Good+ Extension 5 Normal Abduction (C5) 3+ Fair+ External Rotation 4 Good Internal Rotation 4+ Good+ PT-OP-Q Treatments Start: 04/12/24 10:11 Freq: Status: Active Protocol: Document 06/30/24 11:33 [facility] (Rec: 06/30/24 13:31 [facility] [id number]) Therapeutic Exercises Standing Exercises tspine ext Standing Exercise Name over ball Side bilateral Reps/Minutes 10 sec x5 Comments inc time for set up Other Exercises AROM Other Exercise Name shoulders and cervical Side bilateral isometrics Other Exercise Name BUE MMT Side bilateral Manual Therapy Treatment Consent Patient gave verbal consent for manual Yes treatment Soft Tissue Mobilization thoracic spine Body Location bilateral paraspinals Mobilization Type Strumming Intensity/Depth Moderate Body Position Sitting neck Body Location B scalenes, UT, levator scap, SCM Bilateral Mobilization Type Cross-Friction,Myofascial Release,Rolling,Sustained Pressure Intensity/Depth Moderate Joint Mobilizations thoracic Comments PA T1-3 PA T5-7 c/r seated GH Comments L post, lat gapping, distraction and inf c/r AC Comments L ant clavicle c/r PT-OP-T Assessment and Plan Start: 04/12/24 10:11 Freq: Status: Active Protocol: Document 06/30/24 11:33 [facility] (Rec: 06/30/24 13:31 [facility] [id number]) Physical Therapy Assessment Goals activity Penitentiary Goal (LTG) Pt will report being able to do all typical lifting and household activities w/o inc pain >2/10 06/07-01/27 w/moving family 06/30-lifting is still hard d/ t B shoulder pain 11/27 LTG Duration 07/29/24 strength Short Term Goal (STG) Pt will be indep w/HEP 06/07-was until last week where was helping move family, does require cues STG Duration achieved advancing as able Penitentiary Goal (LTG) Pt will score at least 4+/5 on BUE MMT and at least 3/5 on EFT to show improved stability and strength to make daily activities easier. 06/07-improving 06/30-cont improvement LTG Duration 2/11 ROM Short Term Goal (STG) Pt will have at least 40 deg cervical ext and at least 65 deg B cervical rot. 06/07-much improved 06/30-some improvement STG Duration 07/21 Electrical Drafter Goal (LTG) Pt will have full shoulder AROM w/o inc pain to allow greater ease w/daily activities. 06/30-cont improvement LTG Duration 08/31 Assessment Summary Assessment Pt had improved abd of R shoulder to 140 after manual. She is improving w/PT and notign less pain but still has limit of shoulder mobility and strength. Cont PT for strength and ROM in order to allow greater ease w/typical activity. Physical Therapy Plan Frequency and Duration Frequency of Treatment 2x/Week Duration of treatment (weeks) 8 Plan of Care Start Date 06/30/24 Plan of Care End Date 09/02/24 Therapeutic Interventions Therapeutic Interventions Home Exercise Program,Joint Mobilizations,Manual Therapy, Neuromuscular Re-education, Patient/Caregiver Education, Self-Care/Home Management,Soft Tissue Mobilization,Taping, Therapeutic Activities, Therapeutic Exercises Modalities Cold Pack/Ice Massage,Electric Stimulation,Hot Packs, Ultrasound Next Visit Focus/Plan Next Note Type Treatment Note Next Visit Plan progress UE strength, plank, con't to work on thoracic mobility and ribcage mobility, manual work for R shoulder
--- NOTE | 2024-07-07 12:10 | PT.OTN ---
Current Diagnoses Pain in right shoulder (07/07/24) Pain in left shoulder (07/07/24) Cervicalgia (07/07/24) Physical Therapy Treatment Note PT-OP-A Visit Information Start: 04/12/24 10:11 Freq: Status: Active Protocol: Document 07/07/24 11:31 [facility] (Rec: 07/07/24 12:10 [facility] [id number]) Out-Patient Physical Therapy Visit Information Visit Information Visit Type Treatment Note Visit Start Time 11:31 Visit Stop Time 12:11 Visit Number 14 Number of ULTRASOUND TECH Visits 0 PT-OP-B Current Condition Start: 04/12/24 10:11 Freq: Status: Active Protocol: Document 05/06/24 09:54 [facility] (Rec: 05/06/24 10:49 [facility] [id number]) Current Condition History of Current Condition Onset Date few months Current Complaints B brachium, neck History of Current Condition Had xrays in shoulders and R shows OA, L shows nothing and neck xray shows degeneration. Feels like ripping in B brachiums. Fell at [employer] and that iritated L shoulder ( this was after xray). She had bruises for weeks. she was able to move it. no injury to R shoulder or neck. SHe has been doing a lot of moving for her cousin and that is increasing pain. hx of chronic LBP. She is getting massage 1x/month. denies numbness/ tingling in arms, dizziness, LIM, lightheadeness Treatment Goals Patient/Caregiver Goals improve mobility of arms PT-OP-C Subjective Start: 04/12/24 10:11 Freq: Status: Active Protocol: Document 07/07/24 11:31 [facility] (Rec: 07/07/24 12:10 [id number]) OP-PT Subjective Patient Comments Patient Comments Pt has been in [place] after her cousin's 43 y/o . She has increased tension in neck. PT-OP-F Manual Assessment Start: 04/12/24 10:11 Freq: Status: Active Protocol: Document 05/06/24 09:54 [facility] (Rec: 05/06/24 10:49 [facility] [id number]) Manual Assessments Soft Tissue Assessment Soft Tissue Mobility Assessment tightness throughout cervical mm and tenderness along w/pec PT-OP-J Posture/Palpation/Skin Start: 04/12/24 10:11 Freq: Status: Active Protocol: Document 05/06/24 09:54 [facility] (Rec: 05/06/24 10:49 [facility] [id number]) Posture Evaluation Whitney Postural Classification System Whitney Postural Classifications Posterior/Anterior Elbow Flexion Test 1 Comments Posture Comments inc kyphosis, fwd head, L trunk rot, R 1st rib elevated, R scap >L fwd tilt, R scap abd and elevated PT-OP-K Range of Motion Start: 04/12/24 10:11 Freq: Status: Active Protocol: Document 06/30/24 11:33 [facility] (Rec: 06/30/24 13:31 [facility] [id number]) Cervical Spine Range of Motion Cervical Spine Active Degrees Flexion 66 Extension 33 Rotation Left 54 Rotation Right 50 Lateral Flexion Left 26 Lateral Flexion Right 25 Comments painR rot and SB and ext Shoulder Goniometric Range of Motion Shoulder Right Active Flexion 150 Extension 50 Abduction 115 External Rotation at 0 degrees Abduction 54 Internal Rotation Behind Back (text) T12 Comments tight at end ranges, pain w/ eccentric abd lowering Left Active Flexion 154 Extension 66 Abduction 168 External Rotation at 0 degrees Abduction 64 Internal Rotation Behind Back (text) T11 Comments pain w/lowering from overhead PT-OP-L Special Tests Start: 04/12/24 10:11 Freq: Status: Active Protocol: Document 05/06/24 09:54 [facility] (Rec: 05/06/24 10:49 [facility] [id number]) Special Tests Cervical Spine Special Tests Vertebral Artery Test Results positional screen neg, ausciltation of carotid and heart 4 points WNL Tectoral membrane Test Results neg Transverse Ligament Test Results neg Alar Ligament Test Results neg Traction Test Results relief Spurling's Test Test Results neg Shoulder Special Tests [place] Blake Impingement Comments positive R neg L Neer Impingement Comments neg B Sulcus Comments neg B [place] Test Comments neg B Speed's Biceps Comments positive B Empty Can Comments neg B AC Joint Compression Comments neg B Neural Special Tests- Upper Body Median Nerve Tension Comments tension noted on L but dec w/ SB R neg R Radial Nerve Tension Comments tension noted on L but dec w/ SB R neg R Ulnar Nerve Tension Comments neg B PT-OP-M Strength Start: 04/12/24 10:11 Freq: Status: Active Protocol: Document 06/30/24 11:33 [facility] (Rec: 06/30/24 13:31 [facility] [id number]) Shoulder Strength Shoulder Manual Muscle Testing Right Flexion 4 Good Extension 4 Good Abduction (C5) 3+ Fair+ External Rotation 4 Good Internal Rotation 4+ Good+ Comments pain B abd Left Flexion 4+ Good+ Extension 5 Normal Abduction (C5) 3+ Fair+ External Rotation 4 Good Internal Rotation 4+ Good+ PT-OP-Q Treatments Start: 04/12/24 10:11 Freq: Status: Active Protocol: Document 07/07/24 11:31 [facility] (Rec: 07/07/24 12:10 [facility] [id number]) Therapeutic Exercises Supine Exercises Racquet ball massage Supine Exercise Name HEP and HO today Side bilateral Comments Intrascapular muscles, MWM, pulsing at ribs, massage Sitting Exercises seated trunk rotation Sitting Exercise Name Reviewed today Manual Therapy Treatment Consent Patient gave verbal consent for manual Yes treatment Other Other Manual Treatments Pt prone: Rib recoil B and pt with very stiff kyphotic posture and her ribs don't really mobilize too much, even with breathing energy technique and manual work: minimal increased mobility; TrP B upper traps and levator and infra, PA mobs grade II- III cervical spine, STM cervical paraspinals; pt supine: B 1st rib isometric, B SCM, B Pect STM PT-OP-T Assessment and Plan Start: 04/12/24 10:11 Freq: Status: Active Protocol: Document 07/07/24 11:31 [facility] (Rec: 07/07/24 12:10 [facility] [id number]) Physical Therapy Assessment Goals activity Bucket Turner Goal (LTG) Pt will report being able to do all typical lifting and household activities w/o inc pain >2/10 06/07-01/27 w/moving family 06/30-lifting is still hard d/ t B shoulder pain 11/27 LTG Duration 07/29/24 strength Short Term Goal (STG) Pt will be indep w/HEP 06/07-was until last week where was helping move family, does require cues STG Duration achieved advancing as able Bucket Turner Goal (LTG) Pt will score at least 4+/5 on BUE MMT and at least 3/5 on EFT to show improved stability and strength to make daily activities easier. 06/07-improving 06/30-cont improvement LTG Duration 08/31 ROM Short Term Goal (STG) Pt will have at least 40 deg cervical ext and at least 65 deg B cervical rot. 06/07-much improved 06/30-some improvement STG Duration 07/21 Bucket Turner Goal (LTG) Pt will have full shoulder AROM w/o inc pain to allow greater ease w/daily activities. 06/30-cont improvement LTG Duration 08/31 Assessment Summary Assessment Pt with ongoing forward posture and kyphosis and stiff ribs that move minimally with manual work. Con't per primary PT plan. Physical Therapy Plan Frequency and Duration Frequency of Treatment 2x/Week Duration of treatment (weeks) 8 Plan of Care Start Date 06/30/24 Plan of Care End Date 09/02/24 Therapeutic Interventions Therapeutic Interventions Home Exercise Program,Joint Mobilizations,Manual Therapy, Neuromuscular Re-education, Patient/Caregiver Education, Self-Care/Home Management,Soft Tissue Mobilization,Taping, Therapeutic Activities, Therapeutic Exercises Modalities Cold Pack/Ice Massage,Electric Stimulation,Hot Packs, Ultrasound Next Visit Focus/Plan Next Note Type Treatment Note Next Visit Plan Con't per primary PT plan: progress UE strength, plank, con't to work on thoracic mobility and ribcage mobility, manual work for R shoulder
--- NOTE | 2024-07-15 18:29 | PT.OTN ---
Current Diagnoses Pain in right shoulder (07/15/24) Pain in left shoulder (07/15/24) Cervicalgia (07/15/24) Physical Therapy Treatment Note PT-OP-A Visit Information Start: 04/12/24 10:11 Freq: Status: Active Protocol: Document 07/15/24 11:31 [facility] (Rec: 07/15/24 18:29 [facility] [id number]) Out-Patient Physical Therapy Visit Information Visit Information Visit Type Treatment Note Visit Start Time 11:30 Visit Stop Time 12:12 Visit Number 15 Number of CARDIAC MONITOR Visits 0 PT-OP-B Current Condition Start: 04/12/24 10:11 Freq: Status: Active Protocol: Document 05/06/24 09:54 [facility] (Rec: 05/06/24 10:49 [facility] [id number]) Current Condition History of Current Condition Onset Date few months Current Complaints B brachium, neck History of Current Condition Had xrays in shoulders and R shows OA, L shows nothing and neck xray shows degeneration. Feels like ripping in B brachiums. Fell at [employer] and that iritated L shoulder ( this was after xray). She had bruises for weeks. she was able to move it. no injury to R shoulder or neck. SHe has been doing a lot of moving for her cousin and that is increasing pain. hx of chronic LBP. She is getting massage 1x/month. denies numbness/ tingling in arms, dizziness, LIM, lightheadeness Treatment Goals Patient/Caregiver Goals improve mobility of arms PT-OP-C Subjective Start: 04/12/24 10:11 Freq: Status: Active Protocol: Document 07/15/24 11:31 [facility] (Rec: 07/15/24 18:29 [facility] [id number]) OP-PT Subjective Patient Comments Patient Comments Pt reports xmas rosas night she stayed at her grandkids house and R arm was so painful and was awake a lot that night. feeling in in lat arm. PT-OP-F Manual Assessment Start: 04/12/24 10:11 Freq: Status: Active Protocol: Document 05/06/24 09:54 [facility] (Rec: 05/06/24 10:49 [facility] [id number]) Manual Assessments Soft Tissue Assessment Soft Tissue Mobility Assessment tightness throughout cervical mm and tenderness along w/pec PT-OP-J Posture/Palpation/Skin Start: 04/12/24 10:11 Freq: Status: Active Protocol: Document 05/06/24 09:54 [facility] (Rec: 05/06/24 10:49 [facility] [id number]) Posture Evaluation Whitney Postural Classification System Whitney Postural Classifications Posterior/Anterior Elbow Flexion Test 1 Comments Posture Comments inc kyphosis, fwd head, L trunk rot, R 1st rib elevated, R scap >L fwd tilt, R scap abd and elevated PT-OP-K Range of Motion Start: 04/12/24 10:11 Freq: Status: Active Protocol: Document 06/30/24 11:33 [facility] (Rec: 06/30/24 13:31 [facility] [id number]) Cervical Spine Range of Motion Cervical Spine Active Degrees Flexion 66 Extension 33 Rotation Left 54 Rotation Right 50 Lateral Flexion Left 26 Lateral Flexion Right 25 Comments painR rot and SB and ext Shoulder Goniometric Range of Motion Shoulder Right Active Flexion 150 Extension 50 Abduction 115 External Rotation at 0 degrees Abduction 54 Internal Rotation Behind Back (text) T12 Comments tight at end ranges, pain w/ eccentric abd lowering Left Active Flexion 154 Extension 66 Abduction 168 External Rotation at 0 degrees Abduction 64 Internal Rotation Behind Back (text) T11 Comments pain w/lowering from overhead PT-OP-L Special Tests Start: 04/12/24 10:11 Freq: Status: Active Protocol: Document 05/06/24 09:54 [facility] (Rec: 05/06/24 10:49 [facility] [id number]) Special Tests Cervical Spine Special Tests Vertebral Artery Test Results positional screen neg, ausciltation of carotid and heart 4 points WNL Tectoral membrane Test Results neg Transverse Ligament Test Results neg Alar Ligament Test Results neg Traction Test Results relief Spurling's Test Test Results neg Shoulder Special Tests [place] Blake Impingement Comments positive R neg L Neer Impingement Comments neg B Sulcus Comments neg B [place] Test Comments neg B Speed's Biceps Comments positive B Empty Can Comments neg B AC Joint Compression Comments neg B Neural Special Tests- Upper Body Median Nerve Tension Comments tension noted on L but dec w/ SB R neg R Radial Nerve Tension Comments tension noted on L but dec w/ SB R neg R Ulnar Nerve Tension Comments neg B PT-OP-M Strength Start: 04/12/24 10:11 Freq: Status: Active Protocol: Document 06/30/24 11:33 [facility] (Rec: 06/30/24 13:31 [facility] [id number]) Shoulder Strength Shoulder Manual Muscle Testing Right Flexion 4 Good Extension 4 Good Abduction (C5) 3+ Fair+ External Rotation 4 Good Internal Rotation 4+ Good+ Comments pain B abd Left Flexion 4+ Good+ Extension 5 Normal Abduction (C5) 3+ Fair+ External Rotation 4 Good Internal Rotation 4+ Good+ PT-OP-Q Treatments Start: 04/12/24 10:11 Freq: Status: Active Protocol: Document 07/15/24 11:31 [facility] (Rec: 07/15/24 18:29 [facility] [id number]) Manual Therapy Treatment Consent Patient gave verbal consent for manual Yes treatment Soft Tissue Mobilization neck Body Location R scalenes, UT, levator scap, SCM Bilateral Mobilization Type Myofascial Release,Rolling, Sustained Pressure Intensity/Depth Moderate Body Position Sidelying bilateral shoulders Body Location R pec, deltoid ant, biceps Mobilization Type Rolling,Sustained Pressure Joint Mobilizations thoracic Comments PA T1-3 w/percussion seated GH Comments R post glide, shear, distraction, inf glide c/r AC Comments R ant clavicle c/r ribs Comments PA R ribs T1-3 w/percussion seated PT-OP-T Assessment and Plan Start: 04/12/24 10:11 Freq: Status: Active Protocol: Document 07/15/24 11:31 [facility] (Rec: 07/15/24 18:29 [facility] [id number]) Physical Therapy Assessment Goals activity Tobacco Buyer Goal (LTG) Pt will report being able to do all typical lifting and household activities w/o inc pain >2/10 06/07-01/27 w/moving family 06/30-lifting is still hard d/ t B shoulder pain 11/27 LTG Duration 07/29/24 strength Short Term Goal (STG) Pt will be indep w/HEP 06/07-was until last week where was helping move family, does require cues STG Duration achieved advancing as able Tobacco Buyer Goal (LTG) Pt will score at least 4+/5 on BUE MMT and at least 3/5 on EFT to show improved stability and strength to make daily activities easier. 06/07-improving 06/30-cont improvement LTG Duration 08/31 ROM Short Term Goal (STG) Pt will have at least 40 deg cervical ext and at least 65 deg B cervical rot. 06/07-much improved 06/30-some improvement STG Duration 07/21 Tobacco Buyer Goal (LTG) Pt will have full shoulder AROM w/o inc pain to allow greater ease w/daily activities. 06/30-cont improvement LTG Duration 08/31 Assessment Summary Assessment focus on manual d/t pain significant in R shoulder. Overall improving w/L shoulder and neck pain but still demonstrates pain significantly in R shoulder. Will see ortho December 28. Physical Therapy Plan Frequency and Duration Frequency of Treatment 2x/Week Duration of treatment (weeks) 8 Plan of Care Start Date 06/30/24 Plan of Care End Date 09/02/24 Next Visit Focus/Plan Next Note Type Treatment Note Next Visit Plan cont to work thoracic mobility and R shoulder stability and postural stability
--- NOTE | 2024-07-29 12:23 | PT.OTN ---
Current Diagnoses Pain in right shoulder (07/29/24) Pain in left shoulder (07/29/24) Cervicalgia (07/29/24) Physical Therapy Treatment Note PT-OP-A Visit Information Start: 04/12/24 10:11 Freq: Status: Active Protocol: Document 07/29/24 11:27 [facility] (Rec: 07/29/24 12:23 [facility] [id number]) Out-Patient Physical Therapy Visit Information Visit Information Visit Type Progress Note Visit Start Time 11:34 Visit Stop Time 12:14 Visit Number 16 Number of SUPERVISOR UNDERWRITING CLERKS Visits 0 PT-OP-B Current Condition Start: 04/12/24 10:11 Freq: Status: Active Protocol: Document 05/06/24 09:54 [facility] (Rec: 05/06/24 10:49 [facility] [id number]) Current Condition History of Current Condition Onset Date few months Current Complaints B brachium, neck History of Current Condition Had xrays in shoulders and R shows OA, L shows nothing and neck xray shows degeneration. Feels like ripping in B brachiums. Fell at [employer] run and that iritated L shoulder ( this was after xray). She had bruises for weeks. she was able to move it. no injury to R shoulder or neck. SHe has been doing a lot of moving for her cousin and that is increasing pain. hx of chronic LBP. She is getting massage 1x/month. denies numbness/ tingling in arms, dizziness, LIM, lightheadeness Treatment Goals Patient/Caregiver Goals improve mobility of arms PT-OP-C Subjective Start: 04/12/24 10:11 Freq: Status: Active Protocol: Document 07/29/24 11:27 [facility] (Rec: 07/29/24 12:23 [facility] [id number]) OP-PT Subjective Patient Comments Patient Comments Pt reports R shoulder is just killing her. Worse after taking tape off. L hasn't been bad. neck has not been bad. PT-OP-F Manual Assessment Start: 04/12/24 10:11 Freq: Status: Active Protocol: Document 05/06/24 09:54 [facility] (Rec: 05/06/24 10:49 [facility] [id number]) Manual Assessments Soft Tissue Assessment Soft Tissue Mobility Assessment tightness throughout cervical mm and tenderness along w/pec PT-OP-J Posture/Palpation/Skin Start: 04/12/24 10:11 Freq: Status: Active Protocol: Document 07/29/24 11:27 [facility] (Rec: 07/29/24 12:23 [facility] [id number]) Posture Evaluation Whitney Postural Classification System Elbow Flexion Test 2 PT-OP-K Range of Motion Start: 04/12/24 10:11 Freq: Status: Active Protocol: Document 07/29/24 11:27 [facility] (Rec: 07/29/24 12:23 [facility] [id number]) Cervical Spine Range of Motion Cervical Spine Active Degrees Flexion 60 Extension 40 Rotation Left 56 Rotation Right 53 Lateral Flexion Left 30 Lateral Flexion Right 30 Comments painR rot Shoulder Goniometric Range of Motion Shoulder Right Active Flexion 129 Extension 40 Abduction 75 External Rotation at 0 degrees Abduction 40 Internal Rotation Behind Back (text) S1 Comments pain w/movment, more pain w/ eccentric flex andabd lowering Left Active Flexion 154 Extension 61 Abduction 175 External Rotation at 0 degrees Abduction 59 Internal Rotation Behind Back (text) T10 PT-OP-L Special Tests Start: 04/12/24 10:11 Freq: Status: Active Protocol: Document 05/06/24 09:54 [facility] (Rec: 05/06/24 10:49 [facility] [id number]) Special Tests Cervical Spine Special Tests Vertebral Artery Test Results positional screen neg, ausciltation of carotid and heart 4 points WNL Tectoral membrane Test Results neg Transverse Ligament Test Results neg Alar Ligament Test Results neg Traction Test Results relief Spurling's Test Test Results neg Shoulder Special Tests [place] Impingement Comments positive R neg L Neer Impingement Comments neg B Sulcus Comments neg B [place] Test Comments neg B Speed's Biceps Comments positive B Empty Can Comments neg B AC Joint Compression Comments neg B Neural Special Tests- Upper Body Median Nerve Tension Comments tension noted on L but dec w/ SB R neg R Radial Nerve Tension Comments tension noted on L but dec w/ SB R neg R Ulnar Nerve Tension Comments neg B PT-OP-M Strength Start: 04/12/24 10:11 Freq: Status: Active Protocol: Document 07/29/24 11:27 [facility] (Rec: 07/29/24 12:23 [facility] [id number]) Shoulder Strength Shoulder Manual Muscle Testing Right Flexion 3+ Fair+ Extension 3+ Fair+ Abduction (C5) 3- Fair- External Rotation 3+ Fair+ Internal Rotation 3+ Fair+ Comments pain B abd Left Flexion 4+ Good+ Extension 5 Normal Abduction (C5) 4- Good- External Rotation 4 Good Internal Rotation 5 Normal Comments pain abd PT-OP-Q Treatments Start: 04/12/24 10:11 Freq: Status: Active Protocol: Document 07/29/24 11:27 [facility] (Rec: 07/29/24 12:23 [facility] [id number]) Therapeutic Exercises Supine Exercises AAROM Supine Exercise Name 1. R flex (LUE helping) 2. R ER w/wand Reps/Minutes 10 ea Standing Exercises ext Standing Exercise Name AAROM Side right Equipment Used cane Reps/Minutes 10 Comments comfortable range Other Exercises AROM Other Exercise Name shoulders and cervical Side bilateral isometrics Other Exercise Name BUE MMT & EFT Side bilateral Manual Therapy Treatment Soft Tissue Mobilization thoracic spine Body Location R paraspinals & lat, rhomboids Mobilization Type Strumming Intensity/Depth Moderate Body Position Sitting neck Body Location R scalenes, UT, levator scap, SCM Bilateral Mobilization Type Myofascial Release,Rolling, Sustained Pressure Intensity/Depth Moderate Body Position Sidelying Comments w/scap dep Joint Mobilizations SC Joint R caudal w/scap elevation thoracic Comments transvers T1-2 and T5-7 L c/r ribs Comments PA R ribs T4-7 c/r w/scap dep Taping R shoulder Comments I strip R scap sup border to L inf, I strip for GH stability , Y strip for supraspinatus PT-OP-T Assessment and Plan Start: 04/12/24 10:11 Freq: Status: Active Protocol: Document 07/29/24 11:27 [facility] (Rec: 07/29/24 12:23 [facility] [id number]) Physical Therapy Assessment Goals activity Budget Counselor Goal (LTG) Pt will report being able to do all typical lifting and household activities w/o inc pain >2/10 06/07-7/ w/moving family 06/30-lifting is still hard d/ t B shoulder pain 11/27 07/29-Able to complete daily activities w/less pain w/L shoudler and neck, but R shoulder currently significantly restricting. LTG Duration 07/29/24 strength Short Term Goal (STG) Pt will be indep w/HEP 06/07-was until last week where was helping move family, does require cues STG Duration achieved advancing as able Jail Goal (LTG) Pt will score at least 4+/5 on BUE MMT and at least 3/5 on EFT to show improved stability and strength to make daily activities easier. 06/07-improving 06/30-cont improvement 07/29-L shoulder improved stability, but R shoulder worse since return on vacation LTG Duration 08/31 ROM Short Term Goal (STG) Pt will have at least 40 deg cervical ext and at least 65 deg B cervical rot. 06/07-much improved 06/30-some improvement 07/29-ext achieved but still limited rot, pain only R rot STG Duration 07/21 Budget Counselor Goal (LTG) Pt will have full shoulder AROM w/o inc pain to allow greater ease w/daily activities. 06/30-cont improvement 07/29-achieved on L, but worse since vacation on R LTG Duration 08/31 Assessment Summary Assessment Pt had 5 deg improved flex w/ less pain R shoulder after manual but cont to have significant pain. Stopped resistance exercises today and encouraged AAROM exercises and cervical stretches only at this time for R shoulder. She has made excellent progress w /L shoulder pain and neck pain but is still very resistricted w/recent worsening of R shoulder since she was on 2 week vacation away. Pt to see orthopedic tomorrow and may benefit from further imaging on R shoulder. Cont PT to improve shoulder, thoracic and cervical mobility and stability and dec pain Physical Therapy Plan Frequency and Duration Frequency of Treatment 2x/Week Duration of treatment (weeks) 8 Plan of Care Start Date 06/30/24 Plan of Care End Date 09/02/24 Therapeutic Interventions Therapeutic Interventions Home Exercise Program,Joint Mobilizations,Manual Therapy, Neuromuscular Re-education, Patient/Caregiver Education, Self-Care/Home Management,Soft Tissue Mobilization,Taping, Therapeutic Activities, Therapeutic Exercises Modalities Cold Pack/Ice Massage,Electric Stimulation,Hot Packs, Ultrasound Next Visit Focus/Plan Next Note Type Treatment Note Next Visit Plan cont to work thoracic mobility and R shoulder mobility gently -AAROM and progress back to strengthening as able
--- NOTE | 2024-08-03 12:33 | PT-OP ANOTE ---
Pt cancelled <24 hrs, daughter sick unable make to appt.
--- NOTE | 2024-08-09 12:33 | PT.OTN ---
Current Diagnoses Pain in right shoulder (08/09/24) Pain in left shoulder (08/09/24) Cervicalgia (08/09/24) Physical Therapy Treatment Note PT-OP-A Visit Information Start: 04/12/24 10:11 Freq: Status: Active Protocol: Document 08/09/24 11:36 [facility] (Rec: 08/09/24 12:32 [facility] [id number]) Out-Patient Physical Therapy Visit Information Visit Information Visit Type Treatment Note Visit Start Time 11:35 Visit Stop Time 12:30 Visit Number 17 Number of LACE STRIPPER Visits 0 PT-OP-B Current Condition Start: 04/12/24 10:11 Freq: Status: Active Protocol: Document 05/06/24 09:54 [facility] (Rec: 05/06/24 10:49 [facility] [id number]) Current Condition History of Current Condition Onset Date few months Current Complaints B brachium, neck History of Current Condition Had xrays in shoulders and R shows OA, L shows nothing and neck xray shows degeneration. Feels like ripping in B brachiums. Fell at [employer] run and that iritated L shoulder ( this was after xray). She had bruises for weeks. she was able to move it. no injury to R shoulder or neck. SHe has been doing a lot of moving for her cousin and that is increasing pain. hx of chronic LBP. She is getting massage 1x/month. denies numbness/ tingling in arms, dizziness, LIM, lightheadeness Treatment Goals Patient/Caregiver Goals improve mobility of arms PT-OP-C Subjective Start: 04/12/24 10:11 Freq: Status: Active Protocol: Document 08/09/24 11:36 [facility] (Rec: 08/09/24 12:32 [facility] [id number]) OP-PT Subjective Patient Comments Patient Comments hasn't tried exercises yet d/t a lot going on. PT-OP-F Manual Assessment Start: 04/12/24 10:11 Freq: Status: Active Protocol: Document 05/06/24 09:54 [facility] (Rec: 05/06/24 10:49 [facility] [id number]) Manual Assessments Soft Tissue Assessment Soft Tissue Mobility Assessment tightness throughout cervical mm and tenderness along w/pec PT-OP-J Posture/Palpation/Skin Start: 04/12/24 10:11 Freq: Status: Active Protocol: Document 07/29/24 11:27 [facility] (Rec: 07/29/24 12:23 [facility] [id number]) Posture Evaluation Whitney Postural Classification System Elbow Flexion Test 2 PT-OP-K Range of Motion Start: 04/12/24 10:11 Freq: Status: Active Protocol: Document 07/29/24 11:27 [facility] (Rec: 07/29/24 12:23 [facility] [id number]) Cervical Spine Range of Motion Cervical Spine Active Degrees Flexion 60 Extension 40 Rotation Left 56 Rotation Right 53 Lateral Flexion Left 30 Lateral Flexion Right 30 Comments painR rot Shoulder Goniometric Range of Motion Shoulder Right Active Flexion 129 Extension 40 Abduction 75 External Rotation at 0 degrees Abduction 40 Internal Rotation Behind Back (text) S1 Comments pain w/movment, more pain w/ eccentric flex andabd lowering Left Active Flexion 154 Extension 61 Abduction 175 External Rotation at 0 degrees Abduction 59 Internal Rotation Behind Back (text) T10 PT-OP-L Special Tests Start: 04/12/24 10:11 Freq: Status: Active Protocol: Document 05/06/24 09:54 [facility] (Rec: 05/06/24 10:49 [facility] [id number]) Special Tests Cervical Spine Special Tests Vertebral Artery Test Results positional screen neg, ausciltation of carotid and heart 4 points WNL Tectoral membrane Test Results neg Transverse Ligament Test Results neg Alar Ligament Test Results neg Traction Test Results relief Spurling's Test Test Results neg Shoulder Special Tests [place] Impingement Comments positive R neg L Neer Impingement Comments neg B Sulcus Comments neg B [place] Test Comments neg B Speed's Biceps Comments positive B Empty [place] Comments neg B AC Joint Compression Comments neg B Neural Special Tests- Upper Body Median Nerve Tension Comments tension noted on L but dec w/ SB R neg R Radial Nerve Tension Comments tension noted on L but dec w/ SB R neg R Ulnar Nerve Tension Comments neg B PT-OP-M Strength Start: 04/12/24 10:11 Freq: Status: Active Protocol: Document 07/29/24 11:27 [facility] (Rec: 07/29/24 12:23 [facility] [id number]) Shoulder Strength Shoulder Manual Muscle Testing Right Flexion 3+ Fair+ Extension 3+ Fair+ Abduction (C5) 3- Fair- External Rotation 3+ Fair+ Internal Rotation 3+ Fair+ Comments pain B abd Left Flexion 4+ Good+ Extension 5 Normal Abduction (C5) 4- Good- External Rotation 4 Good Internal Rotation 5 Normal Comments pain abd PT-OP-Q Treatments Start: 04/12/24 10:11 Freq: Status: Active Protocol: Document 08/09/24 11:36 [facility] (Rec: 08/09/24 12:32 [facility] [id number]) Therapeutic Exercises Supine Exercises AAROM Supine Exercise Name 1. R flex (LUE helping) 2. R ER w/wand Reps/Minutes 15 ea Standing Exercises pendulum Standing Exercise Name fwd/back and lat Side right Reps/Minutes 10 ea Comments max cues ext Standing Exercise Name AAROM Side right Equipment Used cane Reps/Minutes 15 Comments comfortable range Manual Therapy Treatment Consent Patient gave verbal consent for manual Yes treatment Soft Tissue Mobilization neck Body Location R scalenes, UT, levator scap, SCM Bilateral Mobilization Type Myofascial Release,Rolling, Sustained Pressure Intensity/Depth Moderate Body Position Sidelying Comments w/scap dep bilateral shoulders Body Location R pec, deltoid ant, biceps Mobilization Type Rolling,Sustained Pressure Joint Mobilizations thoracic Comments transvers T1-3 L and T5-7 L c/ r ribs Comments PA R ribs T3-7 c/r w/scap dep Taping R shoulder Comments I strip R scap sup border to L inf, I strip for GH stability , Y strip for supraspinatus PT-OP-R Modalities Start: 04/12/24 10:11 Freq: Status: Active Protocol: Document 08/09/24 11:36 [facility] (Rec: 08/09/24 12:33 [facility] [id number]) Electric Stimulation Electric Stimulation Interferential Current (IFC) Body Location Rshoulder and scap Patient Position Sidelying Combined With Heat/Cold Cold Pack Comments ice only 12 min of the 15 min PT-OP-T Assessment and Plan Start: 04/12/24 10:11 Freq: Status: Active Protocol: Document 08/09/24 11:36 [facility] (Rec: 08/09/24 12:32 [facility] [id number]) Physical Therapy Assessment Goals activity Head Of Sales And Marketing Goal (LTG) Pt will report being able to do all typical lifting and household activities w/o inc pain >2/10 06/07-7/10 w/moving family 06/30-lifting is still hard d/ t B shoulder pain 11/27 07/29-Able to complete daily activities w/less pain w/L shoudler and neck, but R shoulder currently significantly restricting. LTG Duration 07/29/24 strength Short Term Goal (STG) Pt will be indep w/HEP 06/07-was until last week where was helping move family, does require cues STG Duration achieved advancing as able Head Of Sales And Marketing Goal (LTG) Pt will score at least 4+/5 on BUE MMT and at least 3/5 on EFT to show improved stability and strength to make daily activities easier. 06/07-improving 06/30-cont improvement 07/29-L shoulder improved stability, but R shoulder worse since return on vacation LTG Duration 08/31 ROM Short Term Goal (STG) Pt will have at least 40 deg cervical ext and at least 65 deg B cervical rot. 06/07-much improved 06/30-some improvement 07/29-ext achieved but still limited rot, pain only R rot STG Duration 07/21 Alf Goal (LTG) Pt will have full shoulder AROM w/o inc pain to allow greater ease w/daily activities. 06/30-cont improvement 07/29-achieved on L, but worse since vacation on R LTG Duration 08/31 Assessment Summary Assessment Review of exercsies needed for form and encouragement w/ gentle ROM. She has limited ROM still and encouraged to do exercsies at home Physical Therapy Plan Frequency and Duration Frequency of Treatment 2x/Week Duration of treatment (weeks) 8 Plan of Care Start Date 06/30/24 Plan of Care End Date 09/02/24 Next Visit Focus/Plan Next Note Type Treatment Note Next Visit Plan cont to work thoracic mobility and R shoulder mobility gently -AAROM and progress back to strengthening as able
--- NOTE | 2024-08-16 14:32 | PT.OTN ---
Current Diagnoses Pain in right shoulder (08/16/24) Pain in left shoulder (08/16/24) Cervicalgia (08/16/24) Physical Therapy Treatment Note PT-OP-A Visit Information Start: 04/12/24 10:11 Freq: Status: Active Protocol: Document 08/16/24 13:52 [facility] (Rec: 08/16/24 14:31 [facility] [id number]) Out-Patient Physical Therapy Visit Information Visit Information Visit Type Treatment Note Visit Start Time 13:50 Visit Stop Time 14:40 Visit Number 18 Number of LABORATORY ASST Visits 0 PT-OP-B Current Condition Start: 04/12/24 10:11 Freq: Status: Active Protocol: Document 05/06/24 09:54 [facility] (Rec: 05/06/24 10:49 [facility] [id number]) Current Condition History of Current Condition Onset Date few months Current Complaints B brachium, neck History of Current Condition Had xrays in shoulders and R shows OA, L shows nothing and neck xray shows degeneration. Feels like ripping in B brachiums. Fell at [employer] run and that iritated L shoulder ( this was after xray). She had bruises for weeks. she was able to move it. no injury to R shoulder or neck. SHe has been doing a lot of moving for her cousin and that is increasing pain. hx of chronic LBP. She is getting massage 1x/month. denies numbness/ tingling in arms, dizziness, LIM, lightheadeness Treatment Goals Patient/Caregiver Goals improve mobility of arms PT-OP-C Subjective Start: 04/12/24 10:11 Freq: Status: Active Protocol: Document 08/16/24 13:52 [facility] (Rec: 08/16/24 14:31 [facility] [id number]) OP-PT Subjective Patient Comments Patient Comments Pt reports tape really helps. Has been barely doing exercises. PT-OP-F Manual Assessment Start: 04/12/24 10:11 Freq: Status: Active Protocol: Document 05/06/24 09:54 [facility] (Rec: 05/06/24 10:49 [facility] [id number]) Manual Assessments Soft Tissue Assessment Soft Tissue Mobility Assessment tightness throughout cervical mm and tenderness along w/pec PT-OP-J Posture/Palpation/Skin Start: 04/12/24 10:11 Freq: Status: Active Protocol: Document 07/29/24 11:27 [facility] (Rec: 07/29/24 12:23 [facility] [id number]) Posture Evaluation Whitney Postural Classification System Elbow Flexion Test 2 PT-OP-K Range of Motion Start: 04/12/24 10:11 Freq: Status: Active Protocol: Document 07/29/24 11:27 [facility] (Rec: 07/29/24 12:23 [facility] [id number]) Cervical Spine Range of Motion Cervical Spine Active Degrees Flexion 60 Extension 40 Rotation Left 56 Rotation Right 53 Lateral Flexion Left 30 Lateral Flexion Right 30 Comments painR rot Shoulder Goniometric Range of Motion Shoulder Right Active Flexion 129 Extension 40 Abduction 75 External Rotation at 0 degrees Abduction 40 Internal Rotation Behind Back (text) S1 Comments pain w/movment, more pain w/ eccentric flex andabd lowering Left Active Flexion 154 Extension 61 Abduction 175 External Rotation at 0 degrees Abduction 59 Internal Rotation Behind Back (text) T10 PT-OP-L Special Tests Start: 04/12/24 10:11 Freq: Status: Active Protocol: Document 05/06/24 09:54 [facility] (Rec: 05/06/24 10:49 [facility] [id number]) Special Tests Cervical Spine Special Tests Vertebral Artery Test Results positional screen neg, ausciltation of carotid and heart 4 points WNL Tectoral membrane Test Results neg Transverse Ligament Test Results neg Alar Ligament Test Results neg Traction Test Results relief Spurling's Test Test Results neg Shoulder Special Tests [place] Impingement Comments positive R neg L Neer Impingement Comments neg B Sulcus Comments neg B [place] Test Comments neg B Speed's Biceps Comments positive B Empty Can Comments neg B AC Joint Compression Comments neg B Neural Special Tests- Upper Body Median Nerve Tension Comments tension noted on L but dec w/ SB R neg R Radial Nerve Tension Comments tension noted on L but dec w/ SB R neg R Ulnar Nerve Tension Comments neg B PT-OP-M Strength Start: 04/12/24 10:11 Freq: Status: Active Protocol: Document 07/29/24 11:27 [facility] (Rec: 07/29/24 12:23 [facility] [id number]) Shoulder Strength Shoulder Manual Muscle Testing Right Flexion 3+ Fair+ Extension 3+ Fair+ Abduction (C5) 3- Fair- External Rotation 3+ Fair+ Internal Rotation 3+ Fair+ Comments pain B abd Left Flexion 4+ Good+ Extension 5 Normal Abduction (C5) 4- Good- External Rotation 4 Good Internal Rotation 5 Normal Comments pain abd PT-OP-Q Treatments Start: 04/12/24 10:11 Freq: Status: Active Protocol: Document 08/16/24 13:52 [facility] (Rec: 08/16/24 14:31 [facility] [id number]) Therapeutic Exercises Supine Exercises serratus punch Side bilateral Reps/Minutes 10 AAROM Supine Exercise Name 1. R flex (LUE helping for eccentric-AROM concentric) 2. R ER w/wand Reps/Minutes 15 ea Sidelying Exercises abd Sidelying Exercise Name stopped d/t pain Side right Sitting Exercises gerry Sitting Exercise Name flex, scaption, abd, IR Side right Reps/Minutes 15 ea Comments comfortable range Standing Exercises isometrics Standing Exercise Name 1. ext 2. flex 3. ER Side right Reps/Minutes 5 sec x6 ea pendulum Standing Exercise Name fwd/back Side right Reps/Minutes 10 ea Comments max cues ext Standing Exercise Name AAROM Side right Equipment Used cane Reps/Minutes 15 Comments comfortable range Manual Therapy Treatment Consent Patient gave verbal consent for manual Yes treatment Soft Tissue Mobilization thoracic spine Body Location R paraspinals & lat, rhomboids Mobilization Type Strumming Intensity/Depth Moderate Body Position Sitting neck Body Location R scalenes, UT, levator scap, SCM Bilateral Mobilization Type Myofascial Release,Rolling, Sustained Pressure Intensity/Depth Moderate Body Position Sidelying Comments w/scap dep bilateral shoulders Body Location R pec Mobilization Type Rolling,Sustained Pressure Comments w/ER Joint Mobilizations thoracic Comments s/l PA R ribs 1-3 c/scap elevation GH Joint R post and distraction Grade II AC Comments R ant clavicle c/r Taping R shoulder Comments I strip R scap sup border to L inf, I strip for GH stability , Y strip for supraspinatus PT-OP-R Modalities Start: 04/12/24 10:11 Freq: Status: Active Protocol: Document 08/16/24 13:52 [facility] (Rec: 08/16/24 14:31 [facility] [id number]) Electric Stimulation Electric Stimulation Interferential Current (IFC) Body Location Rshoulder and scap Patient Position Sidelying Combined With Heat/Cold Cold Pack Comments ice only 12 min of the 15 min PT-OP-T Assessment and Plan Start: 04/12/24 10:11 Freq: Status: Active Protocol: Document 08/16/24 13:52 [facility] (Rec: 08/16/24 14:31 [facility] [id number]) Physical Therapy Assessment Goals activity Environmental Health Technician Goal (LTG) Pt will report being able to do all typical lifting and household activities w/o inc pain >2/10 06/07-10 w/moving family 06/30-lifting is still hard d/ t B shoulder pain 11/27 07/29-Able to complete daily activities w/less pain w/L shoudler and neck, but R shoulder currently significantly restricting. LTG Duration 07/29/24 strength Short Term Goal (STG) Pt will be indep w/HEP 06/07-was until last week where was helping move family, does require cues STG Duration achieved advancing as able Mcc Goal (LTG) Pt will score at least 4+/5 on BUE MMT and at least 3/5 on EFT to show improved stability and strength to make daily activities easier. 06/07-improving 06/30-cont improvement 07/29-L shoulder improved stability, but R shoulder worse since return on vacation LTG Duration 08/31 ROM Short Term Goal (STG) Pt will have at least 40 deg cervical ext and at least 65 deg B cervical rot. 06/07-much improved 06/30-some improvement 07/29-ext achieved but still limited rot, pain only R rot STG Duration 07/21 Environmental Health Technician Goal (LTG) Pt will have full shoulder AROM w/o inc pain to allow greater ease w/daily activities. 06/30-cont improvement 07/29-achieved on L, but worse since vacation on R LTG Duration 08/31 Assessment Summary Assessment Pt tolerated progression of exercsies today except s/l abd that was even painful w/AAROM . She is encouragd to cnt her exercises at home Physical Therapy Plan Frequency and Duration Frequency of Treatment 2x/Week Duration of treatment (weeks) 8 Plan of Care Start Date 06/30/24 Plan of Care End Date 09/02/24 Next Visit Focus/Plan Next Note Type Treatment Note Next Visit Plan cont to work thoracic mobility and R shoulder mobility gently -AAROM and progress back to strengthening as able
--- NOTE | 2024-08-18 14:33 | PT.OTN ---
Current Diagnoses Pain in right shoulder (08/18/24) Pain in left shoulder (08/18/24) Cervicalgia (08/18/24) Physical Therapy Treatment Note PT-OP-A Visit Information Start: 04/12/24 10:11 Freq: Status: Active Protocol: Document 08/18/24 13:23 [facility] (Rec: 08/18/24 14:33 [facility] [id number]) Out-Patient Physical Therapy Visit Information Visit Information Visit Type Treatment Note Visit Start Time 13:50 Visit Stop Time 14:40 Visit Number 19 Number of SUPERVISOR CELL OPERATION Visits 0 PT-OP-B Current Condition Start: 04/12/24 10:11 Freq: Status: Active Protocol: Document 05/06/24 09:54 [facility] (Rec: 05/06/24 10:49 [facility] [id number]) Current Condition History of Current Condition Onset Date few months Current Complaints B brachium, neck History of Current Condition Had xrays in shoulders and R shows OA, L shows nothing and neck xray shows degeneration. Feels like ripping in B brachiums. Fell at [employer] run and that iritated L shoulder ( this was after xray). She had bruises for weeks. she was able to move it. no injury to R shoulder or neck. SHe has been doing a lot of moving for her cousin and that is increasing pain. hx of chronic LBP. She is getting massage 1x/month. denies numbness/ tingling in arms, dizziness, LIM, lightheadeness Treatment Goals Patient/Caregiver Goals improve mobility of arms PT-OP-C Subjective Start: 04/12/24 10:11 Freq: Status: Active Protocol: Document 08/18/24 13:23 [facility] (Rec: 08/18/24 14:33 [facility] [id number]) OP-PT Subjective Patient Comments Patient Comments Pt reports R arm might be a little less sore. PT-OP-F Manual Assessment Start: 04/12/24 10:11 Freq: Status: Active Protocol: Document 05/06/24 09:54 [facility] (Rec: 05/06/24 10:49 [facility] [id number]) Manual Assessments Soft Tissue Assessment Soft Tissue Mobility Assessment tightness throughout cervical mm and tenderness along w/pec PT-OP-J Posture/Palpation/Skin Start: 04/12/24 10:11 Freq: Status: Active Protocol: Document 07/29/24 11:27 [facility] (Rec: 07/29/24 12:23 [facility] [id number]) Posture Evaluation Whitney Postural Classification System Elbow Flexion Test 2 PT-OP-K Range of Motion Start: 04/12/24 10:11 Freq: Status: Active Protocol: Document 07/29/24 11:27 [facility] (Rec: 07/29/24 12:23 [facility] [id number]) Cervical Spine Range of Motion Cervical Spine Active Degrees Flexion 60 Extension 40 Rotation Left 56 Rotation Right 53 Lateral Flexion Left 30 Lateral Flexion Right 30 Comments painR rot Shoulder Goniometric Range of Motion Shoulder Right Active Flexion 129 Extension 40 Abduction 75 External Rotation at 0 degrees Abduction 40 Internal Rotation Behind Back (text) S1 Comments pain w/movment, more pain w/ eccentric flex andabd lowering Left Active Flexion 154 Extension 61 Abduction 175 External Rotation at 0 degrees Abduction 59 Internal Rotation Behind Back (text) T10 PT-OP-L Special Tests Start: 04/12/24 10:11 Freq: Status: Active Protocol: Document 05/06/24 09:54 [facility] (Rec: 05/06/24 10:49 [facility] [id number]) Special Tests Cervical Spine Special Tests Vertebral Artery Test Results positional screen neg, ausciltation of carotid and heart 4 points WNL Tectoral membrane Test Results neg Transverse Ligament Test Results neg Alar Ligament Test Results neg Traction Test Results relief Spurling's Test Test Results neg Shoulder Special Tests [place] Impingement Comments positive R neg L Neer Impingement Comments neg B Sulcus Comments neg B [place] Test Comments neg B Speed's Biceps Comments positive B Empty [place] Comments neg B AC Joint Compression Comments neg B Neural Special Tests- Upper Body Median Nerve Tension Comments tension noted on L but dec w/ SB R neg R Radial Nerve Tension Comments tension noted on L but dec w/ SB R neg R Ulnar Nerve Tension Comments neg B PT-OP-M Strength Start: 04/12/24 10:11 Freq: Status: Active Protocol: Document 07/29/24 11:27 [facility] (Rec: 07/29/24 12:23 [facility] [id number]) Shoulder Strength Shoulder Manual Muscle Testing Right Flexion 3+ Fair+ Extension 3+ Fair+ Abduction (C5) 3- Fair- External Rotation 3+ Fair+ Internal Rotation 3+ Fair+ Comments pain B abd Left Flexion 4+ Good+ Extension 5 Normal Abduction (C5) 4- Good- External Rotation 4 Good Internal Rotation 5 Normal Comments pain abd PT-OP-Q Treatments Start: 04/12/24 10:11 Freq: Status: Active Protocol: Document 08/18/24 13:23 [facility] (Rec: 08/18/24 14:33 [facility] [id number]) Therapeutic Exercises Supine Exercises serratus punch Side bilateral Equipment Used 1# Reps/Minutes 12 Comments cues no scap elevation AAROM Supine Exercise Name 1. AROM R flex 2. R ER w/wand Reps/Minutes 15 ea Sitting Exercises gerry Sitting Exercise Name flex, scaption, abd, IR Side right Reps/Minutes 15 ea Comments comfortable range Standing Exercises isometrics Standing Exercise Name 1. ext 2. flex 3. ER 4. abd 5. IR Side right Reps/Minutes 5 sec x6 ea ext Standing Exercise Name in doorway stretch Side bilateral Reps/Minutes 30 secx2 Comments comfortable range row Side bilateral Equipment Used peach band Reps/Minutes 12 Comments cues scap retraction IR Standing Exercise Name reactive isometric in full IR to belly Side right Equipment Used peach band Reps/Minutes 10 Comments towel roll under arm ER Standing Exercise Name reactive isometric in neutral Side right Equipment Used peach band Reps/Minutes 10 Comments towel roll under elbow Manual Therapy Treatment Consent Patient gave verbal consent for manual Yes treatment Soft Tissue Mobilization thoracic spine Body Location R paraspinals & lat, rhomboids Mobilization Type Strumming Intensity/Depth Moderate Body Position Sitting neck Body Location R scalenes, UT, levator scap, SCM Bilateral Mobilization Type Myofascial Release,Rolling, Sustained Pressure Intensity/Depth Moderate Body Position Sidelying Comments w/scap dep bilateral shoulders Body Location R pec & bicep Mobilization Type Rolling,Sustained Pressure Comments w/ER Joint Mobilizations GH Joint R post and distraction Grade II PT-OP-R Modalities Start: 04/12/24 10:11 Freq: Status: Active Protocol: Document 08/18/24 13:23 [facility] (Rec: 08/18/24 14:33 [facility] [id number]) Electric Stimulation Electric Stimulation Interferential Current (IFC) Body Location Rshoulder and scap Patient Position Sidelying Combined With Heat/Cold Cold Pack Comments ice only 12 min of the 15 min PT-OP-T Assessment and Plan Start: 04/12/24 10:11 Freq: Status: Active Protocol: Document 08/18/24 13:23 [facility] (Rec: 08/18/24 14:33 [facility] [id number]) Physical Therapy Assessment Goals activity Electric Stove Mechanic Goal (LTG) Pt will report being able to do all typical lifting and household activities w/o inc pain >2/10 06/07-7/10 w/moving family 06/30-lifting is still hard d/ t B shoulder pain 11/27 07/29-Able to complete daily activities w/less pain w/L shoudler and neck, but R shoulder currently significantly restricting. LTG Duration 07/29/24 strength Short Term Goal (STG) Pt will be indep w/HEP 06/07-was until last week where was helping move family, does require cues STG Duration achieved advancing as able Electric Stove Mechanic Goal (LTG) Pt will score at least 4+/5 on BUE MMT and at least 3/5 on EFT to show improved stability and strength to make daily activities easier. 06/07-improving 06/30-cont improvement 07/29-L shoulder improved stability, but R shoulder worse since return on vacation LTG Duration 08/31 ROM Short Term Goal (STG) Pt will have at least 40 deg cervical ext and at least 65 deg B cervical rot. 06/07-much improved 06/30-some improvement 07/29-ext achieved but still limited rot, pain only R rot STG Duration 07/21 Electric Stove Mechanic Goal (LTG) Pt will have full shoulder AROM w/o inc pain to allow greater ease w/daily activities. 06/30-cont improvement 07/29-achieved on L, but worse since vacation on R LTG Duration 08/31 Assessment Summary Assessment Pt did well with exercise galihen cued for form and performance and was able to tolerate gentle strengthening. Manual helps to improve ROM and relief noted w/estim Physical Therapy Plan Frequency and Duration Frequency of Treatment 2x/Week Duration of treatment (weeks) 8 Plan of Care Start Date 06/30/24 Plan of Care End Date 09/02/24 Next Visit Focus/Plan Next Note Type Treatment Note Next Visit Plan cont to work thoracic mobility and R shoulder mobility gently -AAROM and progress back to strengthening as able
--- NOTE | 2024-10-06 12:15 | PT.OPDS ---
Current Diagnoses Pain in right shoulder (08/18/24) Pain in left shoulder (08/18/24) Cervicalgia (08/18/24) Visit Care Team Role Provider Type SEDRICK Morejon Attending Provider Non-Staff Family Provider Primary Care Provider Referring Provider Specialty: Medical Address: [address] [place] [address], [phone] Email: Visit Number Visit Number 19 Discharge Summary PT-OP-B Current Condition Start: 04/12/24 10:11 Freq: Status: Active Protocol: Document 05/06/24 09:54 [facility] (Rec: 05/06/24 10:49 [facility] [id number]) Current Condition History of Current Condition Onset Date few months Current Complaints B brachium, neck History of Current Condition Had xrays in shoulders and R shows OA, L shows nothing and neck xray shows degeneration. Feels like ripping in B brachiums. Fell at [employer] run and that iritated L shoulder ( this was after xray). She had bruises for weeks. she was able to move it. no injury to R shoulder or neck. SHe has been doing a lot of moving for her cousin and that is increasing pain. hx of chronic LBP. She is getting massage 1x/month. denies numbness/ tingling in arms, dizziness, LIM, lightheadeness Treatment Goals Patient/Caregiver Goals improve mobility of arms PT-OP-C Subjective Start: 04/12/24 10:11 Freq: Status: Active Protocol: Document 08/18/24 13:23 [facility] (Rec: 08/18/24 14:33 [facility] [id number]) OP-PT Subjective Patient Comments Patient Comments Pt reports R arm might be a little less sore. PT-OP-F Manual Assessment Start: 04/12/24 10:11 Freq: Status: Active Protocol: Document 05/06/24 09:54 [facility] (Rec: 05/06/24 10:49 [facility] [id number]) Manual Assessments Soft Tissue Assessment Soft Tissue Mobility Assessment tightness throughout cervical mm and tenderness along w/pec PT-OP-J Posture/Palpation/Skin Start: 04/12/24 10:11 Freq: Status: Active Protocol: Document 07/29/24 11:27 [facility] (Rec: 07/29/24 12:23 [facility] [id number]) Posture Evaluation [facility] Postural Classification System Elbow Flexion Test 2 PT-OP-K Range of Motion Start: 04/12/24 10:11 Freq: Status: Active Protocol: Document 07/29/24 11:27 [facility] (Rec: 07/29/24 12:23 [facility] [id number]) Cervical Spine Range of Motion Cervical Spine Active Degrees Flexion 60 Extension 40 Rotation Left 56 Rotation Right 53 Lateral Flexion Left 30 Lateral Flexion Right 30 Comments painR rot Shoulder Goniometric Range of Motion Shoulder Right Active Flexion 129 Extension 40 Abduction 75 External Rotation at 0 degrees Abduction 40 Internal Rotation Behind Back (text) S1 Comments pain w/movment, more pain w/ eccentric flex andabd lowering Left Active Flexion 154 Extension 61 Abduction 175 External Rotation at 0 degrees Abduction 59 Internal Rotation Behind Back (text) T10 PT-OP-L Special Tests Start: 04/12/24 10:11 Freq: Status: Active Protocol: Document 05/06/24 09:54 [facility] (Rec: 05/06/24 10:49 [facility] [id number]) Special Tests Cervical Spine Special Tests Vertebral Artery Test Results positional screen neg, ausciltation of carotid and heart 4 points WNL Tectoral membrane Test Results neg Transverse Ligament Test Results neg Alar Ligament Test Results neg Traction Test Results relief Spurling's Test Test Results neg Shoulder Special Tests [place] Impingement Comments positive R neg L Neer Impingement Comments neg B Sulcus Comments neg B [place] Test Comments neg B Speed's Biceps Comments positive B Empty [place] Comments neg B AC Joint Compression Comments neg B Neural Special Tests- Upper Body Median Nerve Tension Comments tension noted on L but dec w/ SB R neg R Radial Nerve Tension Comments tension noted on L but dec w/ SB R neg R Ulnar Nerve Tension Comments neg B PT-OP-M Strength Start: 04/12/24 10:11 Freq: Status: Active Protocol: Document 07/29/24 11:27 [facility] (Rec: 07/29/24 12:23 [facility] [id number]) Shoulder Strength Shoulder Manual Muscle Testing Right Flexion 3+ Fair+ Extension 3+ Fair+ Abduction (C5) 3- Fair- External Rotation 3+ Fair+ Internal Rotation 3+ Fair+ Comments pain B abd Left Flexion 4+ Good+ Extension 5 Normal Abduction (C5) 4- Good- External Rotation 4 Good Internal Rotation 5 Normal Comments pain abd PT-OP-T Assessment and Plan Start: 04/12/24 10:11 Freq: Status: Active Protocol: Document 10/06/24 12:14 [facility] (Rec: 10/06/24 12:15 [facility] [id number]) Physical Therapy Assessment Goals activity Cosmetologist Goal (LTG) Pt will report being able to do all typical lifting and household activities w/o inc pain >2/10 06/07-01/27 w/moving family 06/30-lifting is still hard d/ t B shoulder pain 11/27 07/29-Able to complete daily activities w/less pain w/L shoudler and neck, but R shoulder currently significantly restricting. LTG Duration 07/29/24 strength Short Term Goal (STG) Pt will be indep w/HEP 06/07-was until last week where was helping move family, does require cues STG Duration achieved advancing as able Group Home Goal (LTG) Pt will score at least 4+/5 on BUE MMT and at least 3/5 on EFT to show improved stability and strength to make daily activities easier. 06/07-improving 06/30-cont improvement 07/29-L shoulder improved stability, but R shoulder worse since return on vacation LTG Duration 08/31 ROM Short Term Goal (STG) Pt will have at least 40 deg cervical ext and at least 65 deg B cervical rot. 06/07-much improved 06/30-some improvement 07/29-ext achieved but still limited rot, pain only R rot STG Duration 07/21 Cosmetologist Goal (LTG) Pt will have full shoulder AROM w/o inc pain to allow greater ease w/daily activities. 06/30-cont improvement 07/29-achieved on L, but worse since vacation on R LTG Duration 08/31 Assessment Summary Assessment Pt has much less pain in L shoulder and neck since starting PT. Has not been seen since aug 18 d/t cancellation of appts as she was to get surgery on R shoulder per ortho visit. DC d/t no longer attending PT and pt to get surgery on R shoulder. Physical Therapy Plan Discharge Physical Therapy Discharge Comments pt to get surgery
== END 2024-10-06 13:04 | disposition home or self-care (01) ==
LOC: PHYS 13:45
PROVIDERS: Family Provider Nurse Practitioner; PCP Nurse Practitioner; Referring Provider Nurse Practitioner; Visit Provider Nurse Practitioner
DX: M54.2 Cervicalgia (principal); M25.512 Pain in left shoulder; M25.511 Pain in right shoulder
CPT/HCPCS: 97014; 97110; 97140; 97162; G0283

== ENCOUNTER → 2024-12-02 17:01 | Outpatient (CLI) | payer MEDICARE, BC, SELFPAY ==
--- NOTE | 2024-12-02 17:03 | DI.MG.S_ITS ---
MM screening mammo BI: 12/02/2024. BI-RADS: 1 CLINICAL: 69-year old female for bilateral screening mammogram. Tyrer-Cuzick lifetime risk of 3.7%. No personal or first-degree family history of breast cancer. PRIOR EXAMS 10/21/2023, 10/17/2022, 10/08/2021, 07/03/2020, 06/23/2020, 04/23/2018. MAMMOGRAPHY TECHNIQUE: 2D and 3D (tomosynthesis) digital mammographic views obtained, with additional images as needed for full coverage. Current study was also evaluated with a Computer Aided Detection (CAD) system. DENSITY B. There are scattered areas of fibroglandular density. MAMMOGRAPHY FINDINGS Bilateral: No suspicious mass, asymmetry, microcalcification, or other abnormality seen. IMPRESSION: * No evidence of malignancy. RECOMMENDATIONS Bilateral * Annual screening mammography. OVERALL ASSESSMENT CATEGORY BI-RADS-1: Negative. The [employer] recommends annual screening mammography beginning at age 40 for women with average risk of breast cancer. ELECTRONICALLY SIGNED: Blair Robledo M.D. on 12/03/2024 at 03:27:41 PM PT Interpreting Station ID: [id number]
== END ==
LOC: MAMMO 17:02
PROVIDERS: Family Provider Nurse Practitioner; PCP Nurse Practitioner; Referring Provider Nurse Practitioner; Visit Provider Nurse Practitioner
DX: Z12.31 Encounter for screening mammogram for malignant neoplasm of breast (principal); R92.323 Mammographic fibroglandular density, bilateral breasts
CPT/HCPCS: 77063; 77067

== ENCOUNTER → 2025-04-08 08:44 | Outpatient (CLI) | payer MEDICARE, BC, SELFPAY ==
--- NOTE | 2025-04-08 08:45 | DI.US.S_ITS ---
PROCEDURE: US CAROTID DOPPLER BI INDICATIONS: ANNUAL SCREENING TECHNIQUE: Color and pulse Doppler interrogation was performed of both carotid systems, with image documentation and velocity measurements. COMPARISON: [facility], , US CAROTID DOPPLER BI, 04/16/2024, 8:46. FINDINGS: Stenosis calculations are based on SRU (Society [employer] in Ultras[employer]) criteria. Right side: Brachial blood pressure: 104/58 mm Hg. Common carotid artery peak systolic velocity: 55 cm/sec. Internal carotid artery peak systolic velocity: 73 cm/sec. Internal carotid artery end diastolic velocity: 27 cm/sec. External carotid artery peak systolic velocity: 71 cm/sec. ICA/CCA peak systolic ratio: 1.3 . Jefferson scale imaging description: No significant plaque . Percent internal carotid artery stenosis: None . Vertebral artery: Flow direction is antegrade. Left side: Brachial blood pressure: 98/61 mm Hg. Common carotid artery peak systolic velocity: 48 cm/sec. Internal carotid artery peak systolic velocity: 69 cm/sec. Internal carotid artery end diastolic velocity: 26 cm/sec. External carotid artery peak systolic velocity: 65 cm/sec. ICA/CCA peak systolic ratio: 1.4 . Jefferson scale imaging description: No significant plaque Percent internal carotid artery stenosis: None . Vertebral artery: Flow direction is antegrade. IMPRESSION: 1. In the right carotid artery, there is no hemodynamically significant stenosis based on peak systolic velocity criteria. 2. In the left carotid artery, there is no hemodynamically significant stenosis based on peak systolic velocity criteria. 3. Antegrade vertebral arteries. Dictated by: Sunday Marx M.D. on 04/08/2025 at 10:20 Approved by: Sunday Marx M.D. on 04/08/2025 at 10:21
== END ==
PROVIDERS: Family Provider Nurse Practitioner; PCP Nurse Practitioner; Referring Provider Nurse Practitioner; Visit Provider Nurse Practitioner
DX: I65.23 Occlusion and stenosis of bilateral carotid arteries (principal)
CPT/HCPCS: 93880